=== PATIENT | female | born 1945 | race Caucasian/White ===

== ENCOUNTER 2020-04-30 20:01 | Inpatient (IN) | payer MEDICARE, SELFPAY ==
[2020-04-30] VITALS (11 sets, daily range): BP systolic 114–219; BP diastolic 10–115; PULSE 43–76; RESP 16–20; TEMP 36.6–36.7; O2SAT 96–98; BMI 22.4
--- NOTE | 2020-04-30 20:23 | ECG_ITS ---
Test Reason : BRADYCARDIA Blood Pressure : / mmHG Vent. Rate : 042 BPM Atrial Rate : 052 BPM P-R Int : 158 ms QRS Dur : 132 ms QT Int : 490 ms P-R-T Axes : 070 -27 -18 degrees QTc Int : 409 ms Sinus bradycardia with Blocked Premature atrial complexes Right bundle branch block Abnormal ECG When compared with ECG of 12-MAR-2020 10:06, T wave inversion less evident in Inferior leads Nonspecific T wave abnormality has replaced inverted T waves in Lateral leads Referred By: Generic ED Physician Electronically Signed By:DEANGELO ALLEN
--- NOTE | 2020-04-30 20:25 | XR_ITS ---
EXAMINATION: XR CHEST CLINICAL INFORMATION: Shortness of breath COMPARISON: 03/11/2020 TECHNIQUE: Frontal view of the chest was obtained. FINDINGS: Lungs are well-expanded and clear. No pleural effusion or pneumothorax. Sternal wires and mediastinal vascular clips. Tortuous aorta. Normal heart size. No acute osseous abnormality. IMPRESSION: No acute pulmonary disease. No pulmonary edema.
[2020-04-30 20:32] LABS: Glucose, Whole Blood 110 mg/dL (60-115)
--- NOTE | 2020-04-30 20:38 | PC.NURSE ---
IV established, labs obtained. MD at bedside. XRay at bedside. Pt aware of plan of care, continue to monitor.
[2020-04-30 20:45] LABS: MANUAL DIFF FLAG NO
[2020-04-30 20:49] LABS: Basophils Absolute Auto 0.1 X10*3/uL (0.0-0.2); Basophils Percent Auto 0.6 % (0-2); Eosinophils Absolute Auto 0.3 X10*3/uL (0.0-0.4); Eosinophils Percent Auto 3.8 % (0-4); Hematocrit 41.4 % (37-47); Hemoglobin 14.2 g/dl (12.0-16.0); Imm Gran Abs Auto 0.01 X10*3/uL (0.00-0.03); Imm Gran Pct Auto 0.1 % (0.0-0.4); Lymphocytes Absolute Auto 2.4 X10*3/uL (1.2-4.9); Lymphocytes Percent Auto 29.3 % (20-40); Mean Corpuscular HGB Conc 34.3 g/dl (31.0-35.0); Mean Corpuscular Hemoglobin 32.1 pg (27.0-33.0); Mean Corpuscular Volume 93.7 fL (80-98); Mean Platelet Volume 11.1 fL (9.4-12.3); Monocytes Absolute Auto 0.5 X10*3/uL (0.1-1.2); Monocytes Percent Auto 5.7 % (2-11); Neutrophils Absolute Auto 4.9 X10*3/uL (2.0-8.3); Neutrophils Percent Auto 60.5 % (45-73); Platelet Count 151 X10*3/uL (160-400); Red Blood Count 4.42 X10*6/uL (4.20-5.50); Red Cell Distribution Width 12.9 % (11.0-16.0); White Blood Count 8.1 X10*3/uL (4.8-10.8)
[2020-04-30] MEDS: hydrALAZINE HCl 20 MG/ML VIAL 10 MG IVPUSH ×2 (20:51→22:40)
[2020-04-30] MEDS: Furosemide 40 MG/4 ML VIAL IVPUSH (20:52)
--- NOTE | 2020-04-30 20:54 | PC.NURSE ---
Pt medicated per EMAR. Sinus kamari on tele at 42-48 bpm. Continue to monitor.
[2020-04-30 20:55] LABS: Prothrombin Time 11.4 SEC (10.8-13.0)
[2020-04-30 20:57] LABS: Partial Thromboplastin Time 25.8 SEC (24.1-38.0)
[2020-04-30 21:17] LABS: Troponin-I High Sensitivity 20.9 ng/L (<3.5-17.0)
--- NOTE | 2020-04-30 21:26 | PC.NURSE ---
PT INCONTINENT OF URINE AFTER LASIX. LINEN CHANGED. CMP RECOLLECTED
[2020-04-30 21:35] LABS: B Type Natriuretic Peptide 406 pg/mL (<100)
--- NOTE | 2020-04-30 21:54 | PC.NURSE ---
Pt having multiple episodes of urinary incontinence since given Lasix. Pt states that she noticed yesterday she was urinating frequently. Pt denies dysuria but reports a history of UTIs. Commode placed at bedside, plan to obtain UA. VSS. Continue to monitor.
[2020-04-30 21:56] LABS: Alanine Aminotransferase 10 U/L (0-31); Albumin Level 3.8 g/dL (3.5-5.0); Alkaline Phosphatase 82 U/L (39-117); Anion Gap 14 (12-20); Aspartate Amino Transferase 14 U/L (5-31); Bilirubin Total 0.6 mg/dL (0.0-1.0); Blood Urea Nitrogen 15 mg/dL (9-16); Calcium 8.6 mg/dL (8.4-10.2); Carbon Dioxide 24 mmol/L (22-29); Chloride 107 mmol/L (96-108); Creatinine Clr Calc Pharmacy 34.3; Estimated Glomerular Filt Rate 44; Glucose Fasting 96 mg/dL (60-99); Potassium 3.9 mmol/l (3.3-5.1); Sodium 141 mmol/L (135-145); Total Protein 6.1 g/dL (6.5-8.0)
--- NOTE | 2020-04-30 22:02 | PC.NURSE ---
UA obtained and sent. Pt assisted back into bed. Continue to monitor.
[2020-04-30 22:23] LABS: Glucose Urine UA NEG (NEG); Leukocyte Esterase Urine NEG (NEG); Nitrite Urine NEG (NEG); Specific Gravity - Urine 1.015 (1.005-1.025); Urine Blood TRACE (NEG); Urine Ketones NEG (NEG); Urine Protein NEG (NEG-TRACE)
[2020-04-30 22:24] LABS: Appearance Urine CLEAR; Color Urine COLORLESS
[2020-04-30 22:33] LABS: WBC Urine 0 /HPF (0-4)
[2020-04-30 22:34] LABS: Hyaline Casts Urine 0-2 /LPF; Squamous Epithelial Cell Urine TRACE /LPF
[2020-04-30 22:38] LABS: UACC CULT NO
[2020-04-30] MEDS: Nitroglycerin 2 % Oint 1 GM Packet 1 INCH TRANSDERMA (22:40)
--- NOTE | 2020-04-30 22:46 | PC.NURSE ---
Pt medicated per EMAR with Hydralazine and Nitro, resting comfortably in bed. VSS. Continue to monitor.
--- NOTE | 2020-04-30 23:01 | PC.NURSE ---
Pt calling this RN into the room, states she is having a frontal headache after administration of the Nitro paste. Pt aware of this side effect. Continue to monitor.
--- NOTE | 2020-04-30 23:11 | ED_ITS ---
HPI - SOB/Dyspnea General Chief Complaint: Dizziness Stated Complaint: SOB,WEAKNESS Time Seen by Provider: 04/30/20 20:31 Source: patient Mode of arrival: ambulatory Limitations: no limitations History of Present Illness HPI Narrative: patient with history of diastolic heart failure flash pulmonary edema uncontrolled hypertension admitted here 2 months ago for similar situation found out to be that she has bilateral renal artery stenosis and exited hypertension cause of pulmonary edema. Patient is supposed to follow-up with vascular but she never followed taking lisinopril ,metoprolol and Lasix today she came for feeling of same chest tightness and shortness of breath started just few hours prior to arrival on arrival patient's blood pressure was 209/98. Patient denies any cough or fever no radiation of chest pain just feel chest tight Related Data Allergies Allergy/AdvReac Type Severity Reaction Status Date / Time nifedipine [From PROCARDIA] Allergy Unknown HEADACHE Unverified 04/11/20 16:19 N.K.D.A. Allergy Unknown Uncoded 07/27/14 00:00 Review of Systems Review of Systems: REVIEW OF SYSTEMS: Pertinent positives and negatives are stated above in the history. GEN: no fevers, chills, fatigue HEENT: no nasal congestion, sore throat, ear pain NEURO: no headache, dizziness, focal weakness PULM: no cough, shortness of breath CV: no , palpitations, LE edema ABD: no abdominal pain, nausea, vomiting, diarrhea : no dysuria, urgency, frequency SKIN: no rash ROS otherwise negative x 10 PMFSH Past Medical History Medical History Diabetic neuropathy, type II diabetes mellitus Heart attack Hypertension Surgical History Aortocoronary bypass status Social History Social History Alcohol intake: never Smoking Status: Current every day smoker Smoked in Last 30 Days: Yes Use of substances other than those prescribed or required for medical reasons: No Advance Directives: No Advance Directives Information Provided: No Physical Exam Vital Signs and I&O and Narrative: Vital Signs and I&O: Vital Signs Temp 97.9 F 04/30/20 22:23 Pulse 62 04/30/20 23:00 Resp 20 04/30/20 22:39 BP 191/74 H 04/30/20 23:00 Pulse Ox 98 04/30/20 22:23 Intake & Output 04/30/20 04/30/20 05/01/20 06:59 18:59 06:59 Weight 57.606 kg Body Mass Index 22.4 VITAL SIGNS: Reviewed. GENERAL: Well developed, well nourished, in no acute distress. HEAD: Normocephalic/atraumatic, Posterior oropharynx was without edema, erythema or exudate. EYES: PERRLA, EOMI intact without pain, no nystagmus/pallor/icterus noted EARS: Ext canals without abnormality, TMs non-bulging and non-erythematous NOSE: Nares patent bilateral OROPHARYNX: no oral lesions noted, posterior pharynx clear and non-erythematous without noted tonsillar enlargement/erythema/exudates NECK: Supple, no adenopathy LUNGS: Normal breath sounds. No adventitious sounds or accessory muscle use. SpO2<> CARDIOVASCULAR: Regular rate and rhythm without noted murmurs, no JVD or lower extremity edema. ABDOMEN: Soft, non-tender, non-distended with bowel sounds. No rigidity. No guarding. No palpable masses or hernias noted MUSCULOSKELETAL: No tenderness, deformities, or effusions noted on gross inspection. EXTREMITIES: No cyanosis, clubbing SKIN: Inspection of the skin reveals no rashes, ulcerations, jaundice, pallor, or petechiae NEUROLOGIC: Alert and oriented x 3. Strength and sensation to light touch were grossly intact x 4. Course Course Course Narrative: patient with bilateral renal artery stenosis with accelerated hypertension which shortness of breath at this time patient does not have any heart failure /pulmonary edema. Blood pressure improved after IV hydralazine and nitro paste will admit patient for accelerated hypertension MDM - SOB/Dyspnea Lab Data Result diagrams: 04/30/20 20:28 04/30/20 21:16 Labs: Lab Results 04/30/20 04/30/20 04/30/20 Range/Units 20:25 20:28 20:28 WBC 8.1 (4.8-10.8) X10*3/uL RBC 4.42 (4.20-5.50) X10*6/uL Hgb 14.2 (12.0-16.0) g/dl Hct 41.4 (37-47) % MCV 93.7 (80-98) fL MCH 32.1 (27.0-33.0) pg MCHC 34.3 (31.0-35.0) g/dl RDW 12.9 (11.0-16.0) % Plt Count 151 L (160-400) X10*3/uL MPV 11.1 (9.4-12.3) fL Immature Gran % (Auto) 0.1 (0.0-0.4) % Neut % (Auto) 60.5 (45-73) % Lymph % (Auto) 29.3 (20-40) % [place] % (Auto) 5.7 (2-11) % Eos % (Auto) 3.8 (0-4) % Baso % (Auto) 0.6 (0-2) % Neut # (Auto) 4.9 (2.0-8.3) X10*3/uL Lymph # (Auto) 2.4 (1.2-4.9) X10*3/uL [place] # (Auto) 0.5 (0.1-1.2) X10*3/uL Eos # (Auto) 0.3 (0.0-0.4) X10*3/uL Baso # (Auto) 0.1 (0.0-0.2) X10*3/uL Abs Immat Gran (auto) 0.01 (0.00-0.03) X10*3/uL Absolute Nucleated RBC 0.000 (0.0-0.012) X10*3/uL Nucleated RBC % (auto) 0.0 (0.0-0.2) /100WBC PT 11.4 (10.8-13.0) SEC INR 1.0 (0.9-1.1) APTT 25.8 (24.1-38.0) SEC Sodium (135-145) mmol/L Potassium (3.3-5.1) mmol/l Chloride (96-108) mmol/L Carbon Dioxide (22-29) mmol/L Anion Gap (12-20) BUN (9-16) mg/dL Creatinine (0.5-1.4) mg/dL Estim Creat Clear Calc Estimated GFR POC Glucose 110 (60-115) mg/dL Fasting Glucose (60-99) mg/dL Calcium (8.4-10.2) mg/dL Total Bilirubin (0.0-1.0) mg/dL AST (5-31) U/L ALT (0-31) U/L Alkaline Phosphatase (39-117) U/L Troponin I High Sens (<3.5-17.0) ng/L B-Natriuretic Peptide (<100) pg/mL Total Protein (6.5-8.0) g/dL Albumin (3.5-5.0) g/dL Urine Color Urine Appearance Urine pH (5.0-8.0) Ur Specific Gem (1.005-1.025) Urine Protein (NEG-TRACE) MG/DL Urine Glucose (UA) (NEG) MG/DL Urine Ketones (NEG) MG/DL Urine Blood (NEG) Urine Nitrite (NEG) Ur Leukocyte Esterase (NEG) Urine RBC (0) /HPF Urine WBC (0-4) /HPF Ur Squamous Epith Cells /LPF Urine Bacteria /LPF Hyaline Casts /LPF 04/30/20 04/30/20 04/30/20 Range/Units 20:28 21:16 22:01 WBC (4.8-10.8) X10*3/uL RBC (4.20-5.50) X10*6/uL Hgb (12.0-16.0) g/dl Hct (37-47) % MCV (80-98) fL MCH (27.0-33.0) pg MCHC (31.0-35.0) g/dl RDW (11.0-16.0) % Plt Count (160-400) X10*3/uL MPV (9.4-12.3) fL Immature Gran % (Auto) (0.0-0.4) % Neut % (Auto) (45-73) % Lymph % (Auto) (20-40) % [place] % (Auto) (2-11) % Eos % (Auto) (0-4) % Baso % (Auto) (0-2) % Neut # (Auto) (2.0-8.3) X10*3/uL Lymph # (Auto) (1.2-4.9) X10*3/uL [place] # (Auto) (0.1-1.2) X10*3/uL Eos # (Auto) (0.0-0.4) X10*3/uL Baso # (Auto) (0.0-0.2) X10*3/uL Abs Immat Gran (auto) (0.00-0.03) X10*3/uL Absolute Nucleated RBC (0.0-0.012) X10*3/uL Nucleated RBC % (auto) (0.0-0.2) /100WBC PT (10.8-13.0) SEC INR (0.9-1.1) APTT (24.1-38.0) SEC Sodium 141 (135-145) mmol/L Potassium 3.9 (3.3-5.1) mmol/l Chloride 107 (96-108) mmol/L Carbon Dioxide 24 (22-29) mmol/L Anion Gap 14 (12-20) BUN 15 (9-16) mg/dL Creatinine 1.19 (0.5-1.4) mg/dL Estim Creat Clear Calc 34.3 Estimated GFR 44 POC Glucose (60-115) mg/dL Fasting Glucose 96 (60-99) mg/dL Calcium 8.6 (8.4-10.2) mg/dL Total Bilirubin 0.6 (0.0-1.0) mg/dL AST 14 (5-31) U/L ALT 10 (0-31) U/L Alkaline Phosphatase 82 (39-117) U/L Troponin I High Sens 20.9 H (<3.5-17.0) ng/L B-Natriuretic Peptide 406 H (<100) pg/mL Total Protein 6.1 L (6.5-8.0) g/dL Albumin 3.8 (3.5-5.0) g/dL Urine Color COLORLESS Urine Appearance CLEAR Urine pH 7.0 (5.0-8.0) Ur Specific Gem 1.015 (1.005-1.025) Urine Protein NEG (NEG-TRACE) MG/DL Urine Glucose (UA) NEG (NEG) MG/DL Urine Ketones NEG (NEG) MG/DL Urine Blood TRACE (NEG) Urine Nitrite NEG (NEG) Ur Leukocyte Esterase NEG (NEG) Urine RBC 1-4 (0) /HPF Urine WBC 0 (0-4) /HPF Ur Squamous Epith Cells TRACE /LPF Urine Bacteria NONE /LPF Hyaline Casts 0-2 /LPF ECG Data ECG interpretation date: 04/30/20 Prior ECG tracings: available for review Interpretation: sinus bradycardia with heart rate of 42 with premature atrial complexes right bundle-branch block normal axis and QT interval no acute change from previous EKGs Discharge Plan Discharge Clinical Impression: Accelerated hypertension Patient Disposition: Admitted As Inpatient
[2020-04-30] MEDS: Acetaminophen 325 MG TABLET 650 MG PO (23:19)
--- NOTE | 2020-04-30 23:19 | PC.NURSE ---
Pt medicated with Tylenol for PINEDA, 5/10 pain. Pt requesting food/drink, given crackers and a sandwich. Continue to monitor.
[2020-05-01] VITALS (19 sets, daily range): BP systolic 147–184; BP diastolic 50–90; PULSE 43–62; RESP 16–54; TEMP 36.5–37; O2SAT 94–99
--- NOTE | 2020-05-01 00:38 | P.HPIM_ITS ---
History of Present Illness Date of Service: 05/01/20 Chief Complaint: SOB 74 y/o female with significant extensive PMHX including renal artery stenosis who presented from home due to complains of shortness of breath x 1 day. Per history provided by the patient, for the past day has been having worsening difficulty breathing which is present at rest. Denies any chest pain, nausea, vomiting, diarrhea or fever. Patient had a similar presentation to our facility on February of present year (2 months ago), admitted due to Hypertensive emergency with acute CHF. Patient was treated accordingly and was discharged to follow up with General surgery Dr Sarmiento as outpatient for further managemnet of renal artery stenosis for what the patient did not. On Presentation currently to the ED tasha is found to have a BP of 209/98 mmHg and HR of 48. Patient was given multiple doses of hydralazine, lasix and placed on nitroglycerin paste. Now BP is 150/50 mmHg. Troponin was found to be 20.9 which is improved from last admission (28). Patient seen and evaluated at the bedside, laying down in bed in no acute distress. ROS as above otherwise negative. Physical exam unremarkable. PMHx: HTN, diabetes, CAD status post CABG, preserved EF Diastolic heart failure (EF of 60-65% on previous echo), Renal artery stenosis PSx: as above Toxix habits: No documented hx of smoking, IVDA or alcohol abuse Review of Systems Cardiovascular: Cardiovascular: Reports dyspnea Respiratory: Respiratory: Reports dyspnea [facility] Medical History Diabetic neuropathy, type II diabetes mellitus Heart attack Hypertension Functional capacity: independent ambulation Family history: reviewed and not pertinent Surgical History Aortocoronary bypass status Social History Alcohol intake: never Smoking Status: Current every day smoker Smoked in Last 30 Days: Yes Use of substances other than those prescribed or required for medical reasons: No Advance Directives: No Advance Directives Information Provided: No Meds Allergies Allergy/AdvReac Type Severity Reaction Status Date / Time nifedipine [From PROCARDIA] Allergy Unknown HEADACHE Unverified 04/11/20 16:19 N.K.D.A. Allergy Unknown Uncoded 07/27/14 00:00 Home Medications Medication Instructions Recorded Confirmed Type aspirin 81 mg PO DAILY 04/30/20 04/30/20 History lisinopril 1 tab PO DAILY 04/30/20 04/30/20 History metformin 1 tab PO BID 04/30/20 04/30/20 History metoprolol tartrate 1 tab PO BID 04/30/20 04/30/20 History Physical Exam Vital Signs and Narrative: Vital Signs: Last Vital Signs Temp 97.9 F 04/30/20 22:23 Pulse 76 04/30/20 23:49 Resp 16 04/30/20 23:49 BP 167/50 H 04/30/20 23:49 Pulse Ox 98 04/30/20 22:23 Body Mass Index 22.4 Results Labs Labs: Laboratory Tests 04/30/20 04/30/20 04/30/20 20:25 20:28 20:28 WBC 8.1 RBC 4.42 Hgb 14.2 Hct 41.4 MCV 93.7 MCH 32.1 MCHC 34.3 RDW 12.9 Plt Count 151 L MPV 11.1 Immature Gran % (Auto) 0.1 Neut % (Auto) 60.5 Lymph % (Auto) 29.3 [place] % (Auto) 5.7 Eos % (Auto) 3.8 Baso % (Auto) 0.6 Neut # (Auto) 4.9 Lymph # (Auto) 2.4 [place] # (Auto) 0.5 Eos # (Auto) 0.3 Baso # (Auto) 0.1 Abs Immat Gran (auto) 0.01 Absolute Nucleated RBC 0.000 Nucleated RBC % (auto) 0.0 PT 11.4 INR 1.0 APTT 25.8 Sodium Potassium Chloride Carbon Dioxide Anion Gap BUN Creatinine Estim Creat Clear Calc Estimated GFR POC Glucose 110 Fasting Glucose Calcium Total Bilirubin AST ALT Alkaline Phosphatase Troponin I High Sens B-Natriuretic Peptide Total Protein Albumin Urine Color Urine Appearance Urine pH Ur Specific [place] Urine Protein Urine Glucose (UA) Urine Ketones Urine Blood Urine Nitrite Ur Leukocyte Esterase Urine RBC Urine WBC Ur Squamous Epith Cells Urine Bacteria Hyaline Casts 04/30/20 04/30/20 04/30/20 20:28 21:16 22:01 WBC RBC Hgb Hct MCV MCH MCHC RDW Plt Count MPV Immature Gran % (Auto) Neut % (Auto) Lymph % (Auto) [place] % (Auto) Eos % (Auto) Baso % (Auto) Neut # (Auto) Lymph # (Auto) [place] # (Auto) Eos # (Auto) Baso # (Auto) Abs Immat Gran (auto) Absolute Nucleated RBC Nucleated RBC % (auto) PT INR APTT Sodium 141 Potassium 3.9 Chloride 107 Carbon Dioxide 24 Anion Gap 14 BUN 15 Creatinine 1.19 Estim Creat Clear Calc 34.3 Estimated GFR 44 POC Glucose Fasting Glucose 96 Calcium 8.6 Total Bilirubin 0.6 AST 14 ALT 10 Alkaline Phosphatase 82 Troponin I High Sens 20.9 H B-Natriuretic Peptide 406 H Total Protein 6.1 L Albumin 3.8 Urine Color COLORLESS Urine Appearance CLEAR Urine pH 7.0 Ur Specific [place] 1.015 Urine Protein NEG Urine Glucose (UA) NEG Urine Ketones NEG Urine Blood TRACE Urine Nitrite NEG Ur Leukocyte Esterase NEG Urine RBC 1-4 Urine WBC 0 Ur Squamous Epith Cells TRACE Urine Bacteria NONE Hyaline Casts 0-2 Assessment and Plan (1) Hypertensive emergency: Status: Acute BP now 150/50 mmHg after multiple IV hydralazine, one dose of lasix and nitro paste by ED Continue with BB and SANJU inh home dose meds electronic device monitor Follow up repeat troponin as ordered Sinus bradycardia on EKG continue with aspirin home dose Cardiology evaluation in the am (2) Renal artery stenosis: Status: Acute General surgery consult for follow up of renal artery stenosis as patient was not compliant with outpatient follow up (3) Diabetic neuropathy, type II diabetes mellitus: Status: Acute hold metformin Insulin regimen as ordered
[2020-05-01] MEDS: Aspirin 81 MG TAB.CHEW PO ×2 (01:55→20:29)
[2020-05-01] MEDS: Heparin Sodium,Porcine 5,000 UNIT/ML VIAL 5000 UNIT SUBCUT ×3 (01:55→16:59)
--- NOTE | 2020-05-01 03:44 | PC.NURSE ---
P: Patient noncompliant with high fall risk precautions. I: Assessed patient, educated patient. E: Pt high fall risk per protocol as pt reports having fell multiple times at home. This RN informed patient of her high risk status and the safety measures that are in place. Pt stated I will not ring the callbell or have an alarm on my bed. If I end up on the ground it will be my fault. This RN educated pt on importance of complying with the plan of care. Pt educated on the risks of not following hospital policy. Will continue to encourage compliance with safety measures, will frequently round on patient.
[2020-05-01 04:05] LABS: Troponin-I High Sensitivity 23.8 ng/L (<3.5-17.0)
[2020-05-01] MEDS: Flu Vacc QS2020-21(6mos up)/PF 0.5 ML SYRINGE IM (05:47)
[2020-05-01 06:37] LABS: MANUAL DIFF FLAG NO
[2020-05-01 06:45] LABS: Basophils Absolute Auto 0.1 X10*3/uL (0.0-0.2); Basophils Percent Auto 0.6 % (0-2); Eosinophils Absolute Auto 0.3 X10*3/uL (0.0-0.4); Eosinophils Percent Auto 3.3 % (0-4); Hematocrit 44.3 % (37-47); Hemoglobin 15.4 g/dl (12.0-16.0); Imm Gran Abs Auto 0.03 X10*3/uL (0.00-0.03); Imm Gran Pct Auto 0.3 % (0.0-0.4); Lymphocytes Absolute Auto 1.5 X10*3/uL (1.2-4.9); Lymphocytes Percent Auto 16.2 % (20-40); Mean Corpuscular HGB Conc 34.8 g/dl (31.0-35.0); Mean Corpuscular Hemoglobin 32.2 pg (27.0-33.0); Mean Corpuscular Volume 92.5 fL (80-98); Monocytes Absolute Auto 0.3 X10*3/uL (0.1-1.2); Monocytes Percent Auto 3.6 % (2-11); Neutrophils Absolute Auto 6.9 X10*3/uL (2.0-8.3); Platelet Count 165 X10*3/uL (160-400); Red Blood Count 4.79 X10*6/uL (4.20-5.50); White Blood Count 9.1 X10*3/uL (4.8-10.8)
[2020-05-01 07:19] LABS: Anion Gap 15 (12-20); Blood Urea Nitrogen 17 mg/dL (9-16); Calcium 8.8 mg/dL (8.4-10.2); Carbon Dioxide 23 mmol/L (22-29); Chloride 106 mmol/L (96-108); Creatinine Clr Calc Pharmacy 31.6; Estimated Glomerular Filt Rate 40; Glucose Random 80 mg/dL (60-115); Potassium 3.9 mmol/l (3.3-5.1); Sodium 140 mmol/L (135-145)
--- NOTE | 2020-05-01 08:18 | MHC.CM.PN ---
Patient lives in a 2 family house with her Daughter and she is functionally independent. Patient's goal is to return home and CM has initiated and will follow for dc planning.IMM addressed with Patient and the original has been given to her and a copy has been placed on the chart.
[2020-05-01 08:30] LABS: Glucose, Whole Blood 99 mg/dL (60-115)
[2020-05-01] MEDS: 0.9 % Sodium Chloride Flush 3 ML SYRINGE 2 ML IVFLUSH ×3 (08:32→15:11)
[2020-05-01] MEDS: lisinopriL 40 MG TABLET PO ×2 (08:32→08:40)
--- NOTE | 2020-05-01 11:04 | P.CONNP_ITS ---
History of Present Illness Reason for Consult Consult date: 05/01/20 Reason for consult: WENDY ? Chief Complaint Chief complaint: SOB,WEAKNESS History of Present Illness Narrative: 74 y/o readm to hosp with HTN emergency with severe HTN, CO and SOB. Previuos eval 02/2020 for simalr event revealeed on dopler evid of L WENDY and likely R WENDY as well. Seen by [facility] for possible intervention which was being pursude as outpt. She is feeling much better this am. No CP/SOB. She is unaware of what precip the event. She takes her meds; no recent incr in [facility] Past Medical History Medical History (Updated 05/01/20 @ 00:49 by Lakisha Preciado MD) Diabetic neuropathy, type II diabetes mellitus Heart attack Hypertension Functional capacity: independent ambulation Family History Family history: reviewed and not pertinent Surgical History Surgical History Aortocoronary bypass status Social History Social History Household Members: Children Housing: House Alcohol intake: never Smoking Status: Current every day smoker Tobacco Type: Cigarette Years Smoked: 60 Smoked in Last 30 Days: Yes Patient Interested in Nicotine Replacement: No Patient Given Instructions on How to Stop Smoking: Yes Date Education Initiated: 05/01/20 Second Hand Smoke Exposure: Yes Use of substances other than those prescribed or required for medical reasons: No Have you been hit, kicked, punched, or otherwise hurt by someone within the past year? If so, by whom?: No Do you feel safe in your current relationship?: No Current Relationship Is there a partner from a previous relationship who is making you feel unsafe now?: No Are you made to feel afraid or neglected: No Advance Directives: No Advance Directives Information Provided: No Do you have thoughts of harming others: None Do you have a plan to hurt others: No Plan Recently lost weight without trying: No service: No Current occupational status: retired Meds Allergies Allergy/AdvReac Type Severity Reaction Status Date / Time nifedipine [From PROCARDIA] Allergy Unknown HEADACHE Unverified 04/11/20 16:19 N.K.D.A. Allergy Unknown Uncoded 07/27/14 00:00 Home Medications Medication Instructions Recorded Confirmed Type aspirin 81 mg PO DAILY 04/30/20 04/30/20 History lisinopril 1 tab PO DAILY 04/30/20 04/30/20 History metformin 1 tab PO BID 04/30/20 04/30/20 History metoprolol tartrate 1 tab PO BID 04/30/20 04/30/20 History Physical Exam Vital Signs and I&O: Vital Signs Temp 98.1 F 05/01/20 10:00 Pulse 53 05/01/20 10:00 Resp 18 05/01/20 08:00 BP 160/78 H 05/01/20 10:00 Pulse Ox 96 05/01/20 10:00 Intake & Output 04/30/20 05/01/20 05/01/20 18:59 06:59 18:59 Output Total 800 / 800 Balance -800 / -800 Urine Output (Average ml/kg/hr) 1.16 Weight 57.606 kg Output: Output, Urine Amount 800 / 800 Other: Urine Bathroom Body Mass Index 22.4 VITAL SIGNS: Reviewed. GENERAL: Well developed, well nourished, in no acute distress. HEAD: Normocephalic/atraumatic, Posterior oropharynx was without edema, erythema or exudate. EYES: PERRLA, EOMI intact without pain, no nystagmus/pallor/icterus noted EARS: Ext canals without abnormality, TMs non-bulging and non-erythematous NOSE: Nares patent bilateral OROPHARYNX: no oral lesions noted, posterior pharynx clear and non-erythematous without noted tonsillar enlargement/erythema/exudates NECK: Supple, no adenopathy LUNGS: Normal breath sounds. No adventitious sounds or accessory muscle use. SpO2<> CARDIOVASCULAR: Regular rate and rhythm without noted murmurs, no JVD or lower extremity edema. ABDOMEN: Soft, non-tender, non-distended with bowel sounds. No rigidity. No guarding. No palpable masses or hernias noted MUSCULOSKELETAL: No tenderness, deformities, or effusions noted on gross inspection. EXTREMITIES: No cyanosis, clubbing SKIN: Inspection of the skin reveals no rashes, ulcerations, jaundice, pallor, or petechiae NEUROLOGIC: Alert and oriented x 3. Strength and sensation to light touch were grossly intact x 4. Results Lab Results Result Diagrams: 05/01/20 06:04 05/01/20 06:04 Lab results: Chemistry 04/30/20 05/01/20 21:16 06:04 Sodium 141 140 Potassium 3.9 3.9 Carbon Dioxide 24 23 BUN 15 17 H Creatinine 1.19 1.29 Calcium 8.6 8.8 Hematology 04/30/20 05/01/20 20:28 06:04 WBC 8.1 9.1 Hgb 14.2 15.4 Plt Count 151 L 165 Urinalysis 04/30/20 22:01 Urine Color COLORLESS Urine Appearance CLEAR Urine pH 7.0 Ur Specific Kevin 1.015 Urine Protein NEG Urine Glucose (UA) NEG Urine Ketones NEG Urine Blood TRACE Urine Nitrite NEG Ur Leukocyte Esterase NEG Urine RBC 1-4 Urine WBC 0 Ur Squamous Epith Cells TRACE Hyaline Casts 0-2 Assessment and Plan (1) Renal artery stenosis: Status: Acute (2) Diabetic neuropathy, type II diabetes mellitus: Status: Acute (3) Hypertensive emergency: Status: Acute (4) Accelerated hypertension: Status: Acute 1. HTN emergency: very suspicious for lea WENDY which can be assoc with HTN crisis 2. Severe HTN: better but remains subotimal contol and needs additional meds 3. WENDY based on doppler 4. 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
[2020-05-01] MEDS: Acetaminophen 325 MG TABLET 650 MG PO (11:44)
[2020-05-01] MEDS: Metoprolol Tartrate 50 MG TABLET PO (11:45)
[2020-05-01 12:19] LABS: Glucose, Whole Blood 116 mg/dL (60-115)
--- NOTE | 2020-05-01 12:21 | P.CDIC_ITS ---
CDI Concurrent Query Service Date: 05/01/20 Documentation Clarification: Please clarify if you are treating a proba ble/suspected/likely or confirmed: Chronic diastolic congestive heart failure Acute on chronic diastolic congestive heart failure Please specify if known or other Chronic Diastolic CHF Provider Response: CHF (chronic) PLEASE DO NOT DELETE/MODIFY EXISTING CONTENT Additional information is needed in order to code to the highest accuracy and appropriate Severity of Illness (SOI). Please clarify the information noted below in your progress notes and discharge summary. Risk Factors/Clinical Indicators/Treatments BP 209/98 hypertensive emergency, noncomplicant with medications. H&P: recent presentation of hypertensive emergency w acute CHF. BNP 406 H Smoker IV lasix, nitropaste now BP is 150/50 mmHg, Trop 20.9 PMH: preserved EF diastolic heart failure, renal artery stenosis. CDS: Alvina Cano CCS, CDIS Contact Number: [phone] Please Review the information above and exercise your independent professional judgment in responding to the query. If you concur, pleas document in the PROGRESS NOTES and DISCHARGE SUMMARY. If you do not agree with the query, please document in the query above. THIS QUERY IS PART OF THE PERMANENT MEDICAL RECORD
[2020-05-01] MEDS: hydrALAZINE HCl 25 MG TABLET PO (15:05)
--- NOTE | 2020-05-01 15:51 | PM.IMPN ---
Subjective Subjective Date of Service: 05/01/20 Interval History: seen and examined mild pineda but no cp or sob Review of Systems General - no fevers or chills Cardiovascular - no chest pain Respiratory - no shortness of breath or cough Abdominal- no abdominal pain, nausea, vomiting, diarrhea Neuro - mild PINEDA Physical Exam Vital Signs and I&O and Narrative: Vital Signs and I&O: Vital Signs Temp 97.7 F 05/01/20 15:18 Pulse 44 L 05/01/20 15:18 Resp 18 05/01/20 15:18 BP 180/90 H 05/01/20 15:05 Pulse Ox 96 05/01/20 15:18 Intake & Output 04/30/20 05/01/20 05/01/20 18:59 06:59 18:59 Output Total 800 / 800 Balance -800 / -800 Urine Output (Aver age ml/kg/hr) 1.16 1.16 Weight 57.606 kg Output: Output, Urine Am ount 800 / 800 Other: Number of Unmeas ured Voids 3 Urine Bathroom Body Mass Index 22.4 General - no acute distress, appears comfortable Cardiovascular - regular rate and rhythm, S1-S2 Lungs - normal respiratory effort, clear to auscultation bilaterally, no wheezing Abdomen - soft, nontender, no rebound regarding Extremities - no edema bilaterally Neuro - awake and alert, no focal deficits Objective Data Current Medications Generic Name Dose Route Start Last Admin Trade Name Freq PRN Reason Stop Dose Admin Acetaminophen 650 mg 05/01/20 11:26 05/01/20 11:44 Acetaminophen 325 Mg Tablet PO 650 mg Q6H PRN Administration Pain and Fever Aspirin 81 mg 05/01/20 00:30 05/01/20 01:55 Aspirin 81 Mg Tab.Chew PO 81 mg BEDTIME BROWN Administration Heparin Sodium (Porcine) 5,000 unit 05/01/20 02:00 05/01/20 08:37 Heparin Sodium,Porcine 5,000 Unit/Ml Vial SUBCUT 5,000 unit Q8H BROWN Administration Hydralazine HCl 25 mg 05/01/20 15:00 05/01/20 15:05 Hydralazine Hcl 25 Mg Tablet PO 25 mg TID BROWN Administration Protocol Insulin Human Lispro 3 unit 05/01/20 07:30 05/01/20 12:59 Insulin Lispro 100 Unit/Ml 3 Ml Vial SUBCUT Not Given QIDACHS [facility] Protocol Lisinopril 40 mg 05/01/20 09:00 05/01/20 08:40 Lisinopril 40 Mg Tablet PO 40 mg DAILY [facility] Administration Protocol Metoprolol Tartrate 50 mg 05/01/20 09:00 05/01/20 11:45 Metoprolol Tartrate 50 Mg Tablet PO 50 mg BID [facility] Administration Protocol Sodium Chloride 2 ml 05/01/20 08:00 05/01/20 15:11 0.9 % Sodium Chloride Flush 3 Ml Syringe IVFLUSH 2 ml QSHIFT [facility] Administration Labs CBC & Chem 7: 05/01/20 06:04 05/01/20 06:04 Labs: Laboratory Results - last 24 hr 04/30/20 04/30/20 04/30/20 20:25 20:28 20:28 MCV 93.7 MCH 32.1 MCHC 34.3 RDW 12.9 Plt Count 151 L MPV 11.1 Immature Gran % (Auto) 0.1 Neut % (Auto) 60.5 Lymph % (Auto) 29.3 Rains % (Auto) 5.7 Eos % (Auto) 3.8 Baso % (Auto) 0.6 Neut # (Auto) 4.9 Lymph # (Auto) 2.4 Rains # (Auto) 0.5 Eos # (Auto) 0.3 Baso # (Auto) 0.1 Abs Immat Gran (auto) 0.01 Absolute Nucleated RBC 0.000 Nucleated RBC % (auto) 0.0 PT 11.4 INR 1.0 APTT 25.8 Anion Gap Estim Creat Clear Calc Estimated GFR POC Glucose 110 Random Glucose Fasting Glucose Calcium Total Bilirubin AST ALT Alkaline Phosphatase Troponin I High Sens B-Natriuretic Peptide Total Protein Albumin Urine Color Urine Appearance Urine pH Ur Specific [place] Urine Protein Urine Glucose (UA) Urine Ketones Urine Blood Urine Nitrite Ur Leukocyte Esterase Urine RBC Urine WBC Ur Squamous Epith Cells Urine Bacteria Hyaline Casts 04/30/20 04/30/20 04/30/20 20:28 21:16 22:01 MCV MCH MCHC RDW Plt Count MPV Immature Gran % (Auto) Neut % (Auto) Lymph % (Auto) Rains % (Auto) Eos % (Auto) Baso % (Auto) Neut # (Auto) Lymph # (Auto) Rains # (Auto) Eos # (Auto) Baso # (Auto) Abs Immat Gran (auto) Absolute Nucleated RBC Nucleated RBC % (auto) PT INR APTT Anion Gap 14 Estim Creat Clear Calc 34.3 Estimated GFR 44 POC Glucose Random Glucose Fasting Glucose 96 Calcium 8.6 Total Bilirubin 0.6 AST 14 ALT 10 Alkaline Phosphatase 82 Troponin I High Sens 20.9 H B-Natriuretic Peptide 406 H Total Protein 6.1 L Albumin 3.8 Urine Color COLORLESS Urine Appearance CLEAR Urine pH 7.0 Ur Specific [place] 1.015 Urine Protein NEG Urine Glucose (UA) NEG Urine Ketones NEG Urine Blood TRACE Urine Nitrite NEG Ur Leukocyte Esterase NEG Urine RBC 1-4 Urine WBC 0 Ur Squamous Epith Cells TRACE Urine Bacteria NONE Hyaline Casts 0-2 05/01/20 05/01/20 05/01/20 03:09 06:04 06:04 MCV 92.5 MCH 32.2 MCHC 34.8 RDW 13.0 Plt Count 165 MPV 11.0 Immature Gran % (Auto) 0.3 Neut % (Auto) 76.0 H Lymph % (Auto) 16.2 L Rains % (Auto) 3.6 Eos % (Auto) 3.3 Baso % (Auto) 0.6 Neut # (Auto) 6.9 Lymph # (Auto) 1.5 Rains # (Auto) 0.3 Eos # (Auto) 0.3 Baso # (Auto) 0.1 Abs Immat Gran (auto) 0.03 Absolute Nucleated RBC 0.000 Nucleated RBC % (auto) 0.0 PT INR APTT Anion Gap 15 Estim Creat Clear Calc 31.6 Estimated GFR 40 POC Glucose Random Glucose 80 Fasting Glucose Calcium 8.8 Total Bilirubin AST ALT Alkaline Phosphatase Troponin I High Sens 23.8 H B-Natriuretic Peptide Total Protein Albumin Urine Color Urine Appearance Urine pH Ur Specific [place] Urine Protein Urine Glucose (UA) Urine Ketones Urine Blood Urine Nitrite Ur Leukocyte Esterase Urine RBC Urine WBC Ur Squamous Epith Cells Urine Bacteria Hyaline Casts 05/01/20 05/01/20 08:27 12:12 MCV MCH MCHC RDW Plt Count MPV Immature Gran % (Auto) Neut % (Auto) Lymph % (Auto) Rains % (Auto) Eos % (Auto) Baso % (Auto) Neut # (Auto) Lymph # (Auto) Rains # (Auto) Eos # (Auto) Baso # (Auto) Abs Immat Gran (auto) Absolute Nucleated RBC Nucleated RBC % (auto) PT INR APTT Anion Gap Estim Creat Clear Calc Estimated GFR POC Glucose 99 116 H Random Glucose Fasting Glucose Calcium Total Bilirubin AST ALT Alkaline Phosphatase Troponin I High Sens B-Natriuretic Peptide Total Protein Albumin Urine Color Urine Appearance Urine pH Ur Specific [place] Urine Protein Urine Glucose (UA) Urine Ketones Urine Blood Urine Nitrite Ur Leukocyte Esterase Urine RBC Urine WBC Ur Squamous Epith Cells Urine Bacteria Hyaline Casts Progress Note: A&P (1) Hypertensive emergency: Status: Acute (2) Renal artery stenosis: Status: Acute Assessment and Plan: This is a 74-year-old female with a known history of renal artery stenosis who presented to the hospital with sudden onset shortness of breath. She is admitted for uncontrolled hypertension. 1. Uncontrolled HTN / flash pulmonary edema better, but not ideal hold metoprolol -- bradycardic down to the 30s start hydralazine -- 50mg TID lisinopril 40mg 2. WENDY by ultrasound not interested in work up / surgical rx at this time hold off vacular surgery eval / cta since she is not interested has been explained risk / benefits -- will think it over 3. Bradycardia no symptoms hold BB and evlaute 4. CAD - s/p CABG 20+ years ago asa ? not on statin, unclear why 5. DM hold metformin inpatient use sliding scale Full Code DVT pptx, heparin
[2020-05-01 17:04] LABS: Glucose, Whole Blood 82 mg/dL (60-115)
[2020-05-01] MEDS: hydrALAZINE HCl 25 MG TABLET 50 MG PO (20:30)
[2020-05-01 21:13] LABS: Glucose, Whole Blood 85 mg/dL (60-115)
[2020-05-02] VITALS (11 sets, daily range): BP systolic 148–193; BP diastolic 70–86; PULSE 52–70; RESP 16–18; TEMP 36.6–36.9; O2SAT 96–99
[2020-05-02] MEDS: Acetaminophen 325 MG TABLET 650 MG PO (00:36)
[2020-05-02 07:59] LABS: Glucose, Whole Blood 173 mg/dL (60-115)
[2020-05-02] MEDS: lisinopriL 40 MG TABLET PO (08:27)
[2020-05-02] MEDS: hydrALAZINE HCl 25 MG TABLET 50 MG PO ×2 (08:27→15:58)
[2020-05-02] MEDS: 0.9 % Sodium Chloride Flush 3 ML SYRINGE 2 ML IVFLUSH (08:28)
[2020-05-02] MEDS: Heparin Sodium,Porcine 5,000 UNIT/ML VIAL 5000 UNIT SUBCUT (10:06)
[2020-05-02 11:37] LABS: Glucose, Whole Blood 176 mg/dL (60-115)
--- NOTE | 2020-05-02 11:43 | PC.NURSE ---
Pt refusing insuline. Educated pt why we use it for diabetics in the hospital. Pt still refusing, will continue to monitor POCs.
--- NOTE | 2020-05-02 11:56 | MHC.CM.PN ---
referral faxed to noman hartley addionally message left for na on vm
--- NOTE | 2020-05-02 12:16 | PM.PNNEP ---
Subjective Subjective Interval history: seen and examined feeling better no CP/SOB Physical Exam Vital Signs and I&O and Narrative: Vital Signs and I&O: Vital Signs Temp 97.8 F 05/02/20 11:37 Pulse 61 05/02/20 11:37 Resp 18 05/02/20 11:37 BP 156/82 H 05/02/20 11:37 Pulse Ox 99 05/02/20 11:37 Intake & Output 05/01/20 05/02/20 05/02/20 18:59 06:59 18:59 Intake Total 340 / 340 240 / 240 Balance 340 / 340 240 / 240 Intake: Intake, Oral Brenden unt 340 / 340 240 / 240 Other: Breakfast % Eate n 100% Number of Unmeas ured Voids 3 2 Body Mass Index 22.4 VITAL SIGNS: Reviewed. GENERAL: Well developed, well nourished, in no acute distress. HEAD: Normocephalic/atraumatic, Posterior oropharynx was without edema, erythema or exudate. EYES: PERRLA, EOMI intact without pain, no nystagmus/pallor/icterus noted EARS: Ext canals without abnormality, TMs non-bulging and non-erythematous NOSE: Nares patent bilateral OROPHARYNX: no oral lesions noted, posterior pharynx clear and non-erythematous without noted tonsillar enlargement/erythema/exudates NECK: Supple, no adenopathy LUNGS: Normal breath sounds. No adventitious sounds or accessory muscle use. SpO2<> CARDIOVASCULAR: Regular rate and rhythm without noted murmurs, no JVD or lower extremity edema. ABDOMEN: Soft, non-tender, non-distended with bowel sounds. No rigidity. No guarding. No palpable masses or hernias noted MUSCULOSKELETAL: No tenderness, deformities, or effusions noted on gross inspection. EXTREMITIES: No cyanosis, clubbing SKIN: Inspection of the skin reveals no rashes, ulcerations, jaundice, pallor, or petechiae NEUROLOGIC: Alert and oriented x 3. Strength and sensation to light touch were grossly intact x 4. Assessment & Plan Assessment and plan (1) Renal artery stenosis: Status: Acute (2) Diabetic neuropathy, type II diabetes mellitus: Status: Acute (3) Hypertensive emergency: Status: Acute (4) Accelerated hypertension: Status: Acute Assessment and Plan: 1. HTN emergency: very suspicious for lea WENDY which can be assoc with HTN crisis 2. Severe HTN: better but remains subotimal contol and needs additional meds 3. WENDY based on doppler 4. DM 5. 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
--- NOTE | 2020-05-02 14:26 | MHC.CM.PN ---
referral made to [facility] counselor noman coe pt does not want to have vna sercveis when dcd
--- NOTE | 2020-05-02 14:31 | PM.DS ---
DS: Providers Provider Date of admission: 05/01/20 00:36 Primary care physician: Unknown Physician Consults: 05/01/20 07:43 Consult to Nephrology Routine Consulting Provider: Rohan Farley Reason for consultation: renal artery stenosis, hypertensive urgency DS: Diagnosis Discharge Diagnosis (1) Hypertensive emergency: Status: Acute (2) Renal artery stenosis: Status: Acute (3) Flash pulmonary edema: Status: Acute DS: Summary Hospital Course Hospital Course: HPI from the admission H&P: 74 y/o female with significant extensive PMHX including renal artery stenosis who presented from home due to complains of shortness of breath x 1 day. Per history provided by the patient, for the past day has been having worsening difficulty breathing which is present at rest. Denies any chest pain, nausea, vomiting, diarrhea or fever. Patient had a similar presentation to our facility on February of present year (2 months ago), admitted due to Hypertensive emergency with acute CHF. Patient was treated accordingly and was discharged to follow up with General surgery Dr Sarmiento as outpatient for further managemnet of renal artery stenosis for what the patient did not. On Presentation currently to the ED tasha is found to have a BP of 209/98 mmHg and HR of 48. Patient was given multiple doses of hydralazine, lasix and placed on nitroglycerin paste. Now BP is 150/50 mmHg. Troponin was found to be 20.9 which is improved from last admission (28). Patient seen and evaluated at the bedside, laying down in bed in no acute distress. ROS as above otherwise negative. Physical exam unremarkable. patient presented in flash pulmonary edema secondary to hypertensive urgency. Patient was treated initially with do IV diuretics in the emergency room and subsequently started on oral antihypertensives. her metoprolol was discontinued due to bradycardia and instead hydralazine was initiated and up titrated to 50 mg 3 times a day per. she was continued on her lisinopril at 40 mg daily. Blood pressure remained suboptimal and she was subsequently commenced on Cardura 2 mg. although blood pressure improved, not ideal and will require further titration in the outpatient setting. In regards to her known renal artery stenosis, plan was for patient to undergo a CT angio and subsequent vascular surgery evaluation and possible intervention while in the hospital. However, the patient instead opted for outpatient follow-up and has been given a referral to vascular surgery, Dr. Sarmiento. she will also need follow-up with Nephrology if her blood pressure remains an issue. Time Spent with Patient Time attestation: Total time spent providing and/or coordinating discharge services: Physical Exam Vital Signs and I&O and Narrative: Vital Signs and I&O: Vital Signs Temp 97.8 F 05/02/20 11:37 Pulse 61 05/02/20 11:37 Resp 18 05/02/20 11:37 BP 156/82 H 05/02/20 11:37 Pulse Ox 99 05/02/20 12:00 General - no acute distress, appears comfortable Cardiovascular - regular rate and rhythm, S1-S2 Lungs - normal respiratory effort, clear to auscultation bilaterally, no wheezing Abdomen - soft, nontender, no rebound regarding Extremities - no edema bilaterally Neuro - awake and alert, no focal deficits DS: Data Data Completed and Pending Labs on day of discharge: Labs from last 24 hours 05/02/20 05/02/20 05/01/20 11:33 07:51 21:05 POC Glucose 176 H 173 H 85 05/01/20 16:57 POC Glucose 82 Discharge Plan Discharge Patient Disposition: Home Health Service Referrals: Arnold Sarmiento MD [Physician] - None (call office for appt) Physician,Unknown [Primary Care Provider] - Discharge Medications: New doxazosin 2 mg Tablet 2 mg PO BEDTIME Qty: 30 RF: 0 hydralazine 50 mg tablet 50 mg PO TID Qty: 90 RF: 0 Continued metformin 500 mg tablet 1 tab PO BID RF: 0 aspirin 81 mg Tablet 81 mg PO DAILY RF: 0 lisinopril 40 mg tablet 1 tab PO DAILY RF: 0 Discontinued metoprolol tartrate 50 mg tablet 1 tab PO BID RF: 0 Discharge Orders: Discharge Order (Routine); Ordered 05/02/20 Ordered By: Dean Gabriel Diet: advance to your usual diet Activity on Discharge: As tolerated Visit Report Forms: Patient Portal Discharge page Care Plan Goals: To have blood pressure control improve Health Concerns: Uncontrolled BP. This may be realated to narrow of the arteries around your kidneys. Please follow up with vascular doctor -- Dr. Sarmiento Plan of Treatment: Stop metoprolol. Start Cardura and Hydralazine
== END 2020-05-02 16:30 | disposition home health service (06) | DRG 305 ==
LOC: HO.ED 23:45 → HO.IMC 05-01 00:45
PROVIDERS: Admitting Provider Internal Medicine; Emergency Provider Internal Medicine; Visit Provider Family Medicine
DX: I16.1 Hypertensive emergency (principal); I50.32 Chronic diastolic (congestive) heart failure; E11.42 Type 2 diabetes mellitus with diabetic polyneuropathy; I25.10 Atherosclerotic heart disease of native coronary artery without angina pectoris; F17.210 Nicotine dependence, cigarettes, uncomplicated; Z95.1 Presence of aortocoronary bypass graft; I70.1 Atherosclerosis of renal artery; Z91.19 Patient's noncompliance with other medical treatment and regimen; I25.2 Old myocardial infarction; I13.10 Hypertensive heart and chronic kidney disease without heart failure, with stage 1 through stage 4 chronic kidney disease, or unspecified chronic kidney disease; E11.22 Type 2 diabetes mellitus with diabetic chronic kidney disease; N18.30 Chronic kidney disease, stage 3 unspecified; Z23 Encounter for immunization; Z71.6 Tobacco abuse counseling; Z79.82 Long term (current) use of aspirin; Z79.84 Long term (current) use of oral hypoglycemic drugs; Z79.899 Other long term (current) drug therapy
CPT/HCPCS: 36415; 71045; 80048; 80053; 81001; 82947; 83880; 84484; 85025; 85610; 85730; 90686; 93005; 93010; 96374; 96375; 96376; 99284; 99285; J1940

== ENCOUNTER 2020-05-31 14:33 | Inpatient (IN) | payer MEDICARE, SELFPAY ==
[2020-05-31] VITALS (11 sets, daily range): BP systolic 159–229; BP diastolic 68–132; PULSE 41–80; RESP 15–18; TEMP 36.8; O2SAT 96–98; BMI 22.4
--- NOTE | 2020-05-31 14:51 | ED_ITS ---
HPI - Syncope General Chief Complaint: Fall Stated Complaint: syncope Time Seen by Provider: 05/31/20 14:50 Source: patient and EMS Mode of arrival: EMS Limitations: no limitations History of Present Illness MD complaint: collapsed Onset (ago): week(s) (2) -: second(s) Description of event: other (states she can just be walking and all of a sudden her legs give out and she falls, she has not hit her head but she has noticed difficulty focusing her eyes prior to all of this) Prodromal symptoms: none Witnessed: No Context: during exertion and standing up Injuries sustained associated with event: none Current symptoms: none Treatments prior to arrival: none Related Data Home Medications Medication Instructions Recorded Confirmed aspirin 81 mg PO DAILY 04/30/20 04/30/20 metformin 1 tab PO BID 04/30/20 04/30/20 Previous Rx's Medication Instructions Recorded doxazosin 2 mg PO BEDTIME #30 tab 05/02/20 hydralazine 50 mg PO TID #90 tab 05/02/20 lisinopril 40 mg tablet 40 mg PO DAILY #90 tab 05/29/20 Allergies Allergy/AdvReac Type Severity Reaction Status Date / Time nifedipine [From PROCARDIA] Allergy Unknown HEADACHE Unverified 04/11/20 16:19 N.K.D.A. Allergy Unknown Uncoded 07/27/14 00:00 Review of Systems Review of Systems: Constitutional : No Weight loss, No Fever, No Chills, No Fatigue, No Malaise ENT/Mouth : No sore throat, No Rhinorrhea Eyes: No Eye Pain, No Swelling, No Redness, difficulty focusing Cardiovascular : No Chest Pain, No SOB, No Dyspnea on Exertion, No Orthopnea, No Edema, No Palpitations Respiratory : No Cough, No Sputum, No Wheezing Gastrointestinal : No Nausea, No Vomiting, No Diarrhea, No Constipation, No abdominal Pain, No Hematochezia, No Melena Genitourinary : No Dysuria, No Urinary Frequency, No Hematuria, Musculoskeletal : No joint pain, No Myalgias, No Joint Swelling Skin : No Skin Lesions, No rash Neuro : No Weakness, No Numbness, No Dizziness, No Headache Psych : No Anxiety/Panic, No Depression Heme/Lymph: No Bruising, No Bleeding,No Lymphadenopathy Endocrine : No Polyuria, No Polydipsia All other systems reviewed and are negative [facility] Past Medical History Attestation statement: The following information was validated with the patient. Medical History Diabetic neuropathy, type II diabetes mellitus Flash pulmonary edema Heart attack Hypertension Surgical History Aortocoronary bypass status Social History Social History Household Members: Children Housing: House Alcohol intake: never Smoking Status: Current every day smoker Tobacco Type: Cigarette Years Smoked: 60 Second Hand Smoke Exposure: Yes Advance Directives: No Advance Directives Information Provided: No service: No Current occupational status: retired Physical Exam Vital Signs: Vital Signs: Last Vital Signs Temp 98.2 F 05/31/20 14:43 Pulse 55 05/31/20 16:00 Resp 18 05/31/20 14:43 BP 229/102 H 05/31/20 16:00 Pulse Ox 96 05/31/20 14:43 Body Mass Index 22.4 Appearance: Alert. Oriented X3. No acute distress. Eyes: Pupils equal, round and reactive to light. has some nystagmus horizontal both left to right with finger tracing, no other abnormalities noted ENT: Pharynx normal. Neck: Normal inspection. Neck supple. CVS: Normal heart rate and rhythm. Pulses normal. Respiratory: No respiratory distress. Breath sounds normal. Abdomen: Soft and nontender. Skin: Skin warm and dry. Normal skin color. Normal skin turgor. Extremities: No lower extremity edema. No calf ttp Neuro: Oriented X 3. No motor deficit. No sensory deficit. slight RUE pronator drift Course Course Course Narrative: signed out to Dr. Weaver pending CTA, IV hydralazine ordered, chronically high BP and chronically high troponin (at her baseline) MDM - Syncope MDM Narrative Medical decision making narrative: 74 yo female with hx of HTN, renal artery stenosis here with 2 weeks of her legs giving out, she has mild RUE pronator drift, some nystagmus horizontal on EOM, will need labs, EKG, possible IV BP control, CT scan of head - dispo per results and findings. Lab Data Result diagrams: 05/31/20 15:14 05/31/20 15:14 Labs: Lab Results 05/31/20 05/31/2020 Range/Units 15:14 15:14 15:14 WBC 7.5 (4.8-10.8) X10*3/uL RBC 4.72 (4.20-5.50) X10*6/uL Hgb 15.1 (12.0-16.0) g/dl Hct 44.1 (37-47) % MCV 93.4 (80-98) fL MCH 32.0 (27.0-33.0) pg MCHC 34.2 (31.0-35.0) g/dl RDW 13.0 (11.0-16.0) % Plt Count 155 L (160-400) X10*3/uL MPV 10.9 (9.4-12.3) fL Immature Gran % (Auto) 0.4 (0.0-0.4) % Neut % (Auto) 64.3 (45-73) % Lymph % (Auto) 25.9 (20-40) % [place] % (Auto) 5.3 (2-11) % Eos % (Auto) 3.3 (0-4) % Baso % (Auto) 0.8 (0-2) % Lymph # (Auto) 2.0 (1.2-4.9) X10*3/uL [place] # (Auto) 0.4 (0.1-1.2) X10*3/uL Eos # (Auto) 0.3 (0.0-0.4) X10*3/uL Baso # (Auto) 0.1 (0.0-0.2) X10*3/uL Abs Immat Gran (auto) 0.03 (0.00-0.03) X10*3/uL Absolute Neuts (auto) 4.9 (2.0-8.3) X10*3/uL Absolute Nucleated RBC 0.000 (0.0-0.012) X10*3/uL Nucleated RBC % (auto) 0.0 (0.0-0.2) /100WBC PT Cancelled INR Cancelled APTT Cancelled Sodium Cancelled Potassium Cancelled Chloride Cancelled Carbon Dioxide Cancelled Anion Gap Cancelled BUN Cancelled Creatinine Cancelled Estim Creat Clear Calc Cancelled Estimated GFR Cancelled Random Glucose Cancelled Calcium Cancelled Magnesium Cancelled Total Bilirubin Cancelled Direct Bilirubin Cancelled AST Cancelled ALT Cancelled Alkaline Phosphatase Cancelled Troponin I High Sens (<3.5-17.0) ng/L Total Protein Cancelled Albumin Cancelled 05/31/20 Range/Units 15:14 WBC (4.8-10.8) X10*3/uL RBC (4.20-5.50) X10*6/uL Hgb (12.0-16.0) g/dl Hct (37-47) % MCV (80-98) fL MCH (27.0-33.0) pg MCHC (31.0-35.0) g/dl RDW (11.0-16.0) % Plt Count (160-400) X10*3/uL MPV (9.4-12.3) fL Immature Gran % (Auto) (0.0-0.4) % Neut % (Auto) (45-73) % Lymph % (Auto) (20-40) % [place] % (Auto) (2-11) % Eos % (Auto) (0-4) % Baso % (Auto) (0-2) % Lymph # (Auto) (1.2-4.9) X10*3/uL [place] # (Auto) (0.1-1.2) X10*3/uL Eos # (Auto) (0.0-0.4) X10*3/uL Baso # (Auto) (0.0-0.2) X10*3/uL Abs Immat Gran (auto) (0.00-0.03) X10*3/uL Absolute Neuts (auto) (2.0-8.3) X10*3/uL Absolute Nucleated RBC (0.0-0.012) X10*3/uL Nucleated RBC % (auto) (0.0-0.2) /100WBC PT INR APTT Sodium Potassium Chloride Carbon Dioxide Anion Gap BUN Creatinine Estim Creat Clear Calc Estimated GFR Random Glucose Calcium Magnesium Total Bilirubin Direct Bilirubin AST ALT Alkaline Phosphatase Troponin I High Sens 25.1 H (<3.5-17.0) ng/L Total Protein Albumin ECG Data Attestation: I personally reviewed and interpreted this ECG as follows: ECG interpretation date: 05/31/20 ECG interpretation time: 15:37 Interpretation: Rate: 58 Rhythm: sinus bradycardia with frequent PACs Newborn: left Normal P waves. Normal KARIN. Normal QRS complex. ST T wave : nonspecific qTC: noral prior studies: no acute ischemia The study has been interpreted contemporaneously by me. . Discharge Plan Discharge Clinical Impression: HTN (hypertension), Fall Prescriptions: No Action lisinopril 40 mg tablet 40 mg PO DAILY Qty: 90 RF: 0 metformin 500 mg tablet 1 tab PO BID RF: 0 aspirin 81 mg Tablet 81 mg PO DAILY RF: 0 doxazosin 2 mg Tablet 2 mg PO BEDTIME Qty: 30 RF: 0 hydralazine 50 mg tablet 50 mg PO TID Qty: 90 RF: 0
--- NOTE | 2020-05-31 14:57 | CT_ITS ---
EXAMINATION: CT HEAD WITHOUT CONTRAST CLINICAL INFORMATION: Fall. COMPARISON: None TECHNIQUE: Contiguous axial imaging was performed from the skull base to vertex without intravenous administration of contrast. This CT examination was performed using dose optimization techniques as appropriate, variously including the following: *Automated exposure control *Adjustment of mA and/or kV according to patient size (this includes techniques or standardized protocols for targeted exams where dose is matched to indication/reason for exam; i.e. extremities or head) *Use of iterative reconstruction technique DLP: 577 mGy-cm FINDINGS: There is no evidence of acute intracranial hemorrhage or territorial infarction. No abnormal mass effect or midline shift is seen. Rios to white matter differentiation is well preserved. No extra-axial fluid collections are identified. The lateral ventricles are symmetrical in size and configuration are normal size. There is diffuse periventricular hypodensity suggestive of chronic small vessel ischemic changes. The osseous structures and soft tissues are normal. The mastoid air cells and visualized portions of the paranasal sinuses are well aerated. CT/CT head/brain wo con IMPRESSION: No acute intracranial process seen. Chronic small vessel ischemic changes.
--- NOTE | 2020-05-31 14:58 | ECG_ITS ---
Test Reason : SYNCOPE Blood Pressure : / mmHG Vent. Rate : 058 BPM Atrial Rate : 058 BPM P-R Int : 148 ms QRS Dur : 120 ms QT Int : 450 ms P-R-T Axes : 073 -30 034 degrees QTc Int : 441 ms Sinus bradycardia with Premature supraventricular complexes Possible Left atrial enlargement Left axis deviation Right bundle branch block Abnormal ECG When compared with ECG of 30-APR-2020 20:25, Heart rate has increased Referred By: Lydia Jeter Electronically Signed By:HOSSEIN BENNETT MD
[2020-05-31 15:20] LABS: MANUAL DIFF FLAG NO
[2020-05-31 15:25] LABS: Basophils Absolute Auto 0.1 X10*3/uL (0.0-0.2); Basophils Percent Auto 0.8 % (0-2); Eosinophils Absolute Auto 0.3 X10*3/uL (0.0-0.4); Eosinophils Percent Auto 3.3 % (0-4); Hematocrit 44.1 % (37-47); Hemoglobin 15.1 g/dl (12.0-16.0); Imm Gran Abs Auto 0.03 X10*3/uL (0.00-0.03); Imm Gran Pct Auto 0.4 % (0.0-0.4); Lymphocytes Percent Auto 25.9 % (20-40); Mean Corpuscular HGB Conc 34.2 g/dl (31.0-35.0); Mean Corpuscular Volume 93.4 fL (80-98); Mean Platelet Volume 10.9 fL (9.4-12.3); Monocytes Absolute Auto 0.4 X10*3/uL (0.1-1.2); Monocytes Percent Auto 5.3 % (2-11); Neutrophils Absolute Auto 4.9 X10*3/uL (2.0-8.3); Neutrophils Percent Auto 64.3 % (45-73); Platelet Count 155 X10*3/uL (160-400); Red Blood Count 4.72 X10*6/uL (4.20-5.50); White Blood Count 7.5 X10*3/uL (4.8-10.8)
[2020-05-31 15:56] LABS: Troponin-I High Sensitivity 25.1 ng/L (<3.5-17.0)
[2020-05-31] MEDS: hydrALAZINE HCl 20 MG/ML VIAL 10 MG IVPUSH ×2 (16:00→17:02)
--- NOTE | 2020-05-31 16:06 | CT_ITS ---
EXAMINATION: CT ANGIOGRAM OF THE HEAD CT ANGIOGRAM OF THE NECK CLINICAL INFORMATION: Repeat episodes of syncope and visual changes. COMPARISON: CT scan of the head earlier 05/31/2020. CT scan of the head 10/05/2019. CT scan of the cervical spine 08/27/2019. TECHNIQUE: Test bolus series followed by intravenous administration 17 mL of Omnipaque 350. Helical imaging was performed in the axial plane from the mediastinum to the skull vertex. A post contrast CT scan of the head was obtained. The degree of stenosis is based off NASCET criteria. The data was processed at the architectural technologist workstation for generation of MIP images. Three-dimensional volume rendered reformatted images were also generated at an offline 3-D workstation. This CT examination was performed using dose optimization techniques as appropriate, variously including the following: *Automated exposure control *Adjustment of mA and/or kV according to patient size (this includes techniques or standardized protocols for targeted exams where dose is matched to indication/reason for exam; i.e. extremities or head) *Use of iterative reconstruction technique DLP: 1531 mGy-cm. FINDINGS: CT Head: There is no evidence of acute intracranial hemorrhage or territorial infarction. No abnormal mass-effect or midline shift is seen. Rios to white matter differentiation is well preserved. No extra-axial fluid collections are identified. There is no abnormal enhancement. The ventricles and sulci are commensurately prominent consistent with mild diffuse volume loss. There are scattered areas of low-attenuation the periventricular and subcortical white matter, consistent with chronic microvascular ischemic changes. 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 There are no acute osseous findings. The soft tissues are unremarkable. There are atheromatous calcifications of the bilateral vertebral and cavernous internal carotid arteries. There is a fluid level with aerosolized secretions in the left sphenoid sinus. CTA Neck: There is a classic configuration of the arch of the aorta. There are atheromatous calcifications of the aortic arch and at the origins of the great vessels of the neck. The common carotid arteries are patent bilaterally. There are mild atheromatous calcifications at the bilateral carotid bifurcations, without significant stenosis. The cervical internal carotid arteries are patent bilaterally. The origins of the vertebral arteries are well-demonstrated. The left vertebral artery is dominant. Both vertebral arteries are patent throughout their cervical course extending intradurally. Nonvascular: The right lobe of the thyroid gland is markedly enlarged, and there is a mass at the mid and upper pole on the right which measures 2.7 x 2.3 cm, similar compared to prior imaging. There are sequelae of median sternotomy and CABG. The upper lung acevedo are well-aerated. There is no cervical lymphadenopathy. There are moderate spondylitic and facet arthropathic changes in the cervical spine. CTA Head: Please note that the initial CTA acquisition is markedly degraded by patient motion artifact in the region of the [place] of [place]. The vessels were evaluated on series 14. There are atheromatous calcifications of the bilateral cavernous internal carotid arteries. The supraclinoid internal carotid arteries and the internal carotid bifurcations appear normal. The middle and anterior cerebral arteries bilaterally demonstrate normal caliber with no evidence of focal stenosis, aneurysm or vascular malformation. There is normal arborization of the middle cerebral artery branches. The anterior communicating artery is normal. In the posterior circulation, the left vertebral artery is dominant. The right vertebral artery ends primarily in the PICA. The basilar artery appears normal. The posterior cerebral arteries have normal caliber. The venous sinuses opacify normally. CT/CT angio head neck IMPRESSION: CT head and neck: 1. There are no acute bleeds or territorial infarcts. No masses are demonstrated. There is no abnormal enhancement. 2. There are chronic microvascular ischemic changes and there is diffuse volume loss. 3. There is a large nodule in the right lobe of the thyroid gland, which could be further evaluated with thyroid ultrasound. CTA head and neck: 1. There are no flow-limiting stenoses in the head and neck circulation. 2. There are no aneurysms or vascular malformations. 3. There are atheromatous calcifications in the neck and intracranially. 4. As described above, initial CTA acquisition is markedly degraded by patient motion artifact in the region of the [place] of [place]. The vessels were evaluated on series 14.
[2020-05-31 17:45] LABS: Glucose Urine UA NEG (NEG); Leukocyte Esterase Urine NEG (NEG); Nitrite Urine NEG (NEG); Specific Gravity - Urine 1.025 (1.005-1.025); Urine Blood NEG (NEG); Urine Ketones NEG (NEG); Urine Protein 1+ MG/DL (NEG-TRACE)
[2020-05-31 17:55] LABS: INTERNATIONAL NORM RATIO 0.9 (0.9-1.1)
[2020-05-31 17:58] LABS: Partial Thromboplastin Time 35.2 SEC (24.1-38.0)
[2020-05-31 18:02] LABS: Appearance Urine CLEAR; Color Urine YELLOW
[2020-05-31 18:04] LABS: Bacteria Urine TRACE /LPF; RBC Urine 0 /HPF (0); Squamous Epithelial Cell Urine 1+ /LPF
[2020-05-31 18:25] LABS: Alanine Aminotransferase 12 U/L (0-31); Albumin Level 3.7 g/dL (3.5-5.0); Alkaline Phosphatase 86 U/L (39-117); Anion Gap 14 (12-20); Aspartate Amino Transferase 16 U/L (5-31); Bilirubin Direct 0.3 mg/dL (0.0-0.5); Bilirubin Total 0.5 mg/dL (0.0-1.0); Blood Urea Nitrogen 13 mg/dL (9-16); Calcium 8.1 mg/dL (8.4-10.2); Carbon Dioxide 23 mmol/L (22-29); Chloride 108 mmol/L (96-108); Creatinine Clr Calc Pharmacy 37.1; Estimated Glomerular Filt Rate 49; Glucose Random 77 mg/dL (60-115); Magnesium 1.7 mg/dL (1.6-2.6); Potassium 4.1 mmol/l (3.3-5.1); Sodium 141 mmol/L (135-145); Total Protein 6.1 g/dL (6.5-8.0)
[2020-05-31] MEDS: iohexoL 350 MG/ML 100 ML INFUS..BTL IV (19:48)
[2020-05-31] MEDS: Labetalol HCL 100 MG/20 ML VIAL 20 MG IVPUSH (20:11)
--- NOTE | 2020-05-31 20:46 | PC.NURSE ---
aware of varying blood pressures. Has been medicated as ordered with Labetalol 20mg, with improvement noted. Pt aware of plan to admit for unstable BP. Pt reports slight headache, but I feel fine . aware. Will continue to monitor.
--- NOTE | 2020-05-31 23:20 | P.HPHOSP_ITS ---
History of Present Illness Date of Service: 05/31/20 Chief Complaint: Fall 74 y/o female with significant PMHX of Renal artery stenosis who presented to the ED s/p fall. Per history provided by the patient for the past 2 weeks has been having on and off LE weakness where she feels like her legs gives out on her . Today while walking outside out of the suddent lost the strenght in both of her extremities and fell on the floor. Denies hitting her her or LOC. On presentation to the ED was found to have elevated BP 222/105 with HR of 48. Patient was given multiple IV medications for BP control. BP now 175/80 mmHg. Lisinopril once dose to be given now. troponin of 25.1 x 1. Patient denies any chest pain, SOB, nausea, vomiting, diarrhea, fever or any sick contacts. CT head showed no evidence of any acute intracranial pathology. CTA head/neck positive for incidental thyroid nodule in the right. Patient was last time admitted with hypertensive crisis 1 month ago and was to follow up with vascular surgery as outpatient. Decision for admission given. Patient seen and examined at the bedside, laying down in bed in no acute distress. ROS as above otherwise negative. Physical exam unremarkable. No evidence of any LE weakness on exam or sensory deficits. PMHx: HTN, diabetes, CAD status post CABG, preserved EF Diastolic heart failure (EF of 60-65% on previous echo), Bilateral Renal artery stenosis PSx: as above Toxix habits: No documented hx of smoking, IVDA or alcohol abuse Review of Systems Musculoskeletal: Musculoskeletal: Reports abnormal gait Neurologic: Reports abnormal gait [facility] Medical History Diabetic neuropathy, type II diabetes mellitus Flash pulmonary edema Heart attack Hypertension Functional capacity: independent ambulation Surgical History Aortocoronary bypass status Social History Household Members: Children Housing: House Alcohol intake: never Smoking Status: Current every day smoker Tobacco Type: Cigarette Years Smoked: 60 Second Hand Smoke Exposure: Yes Advance Directives: No Advance Directives Information Provided: No service: No Current occupational status: retired Meds Allergies Allergy/AdvReac Type Severity Reaction Status Date / Time No Known Allergies Allergy Verified 05/31/20 21:43 Home Medications Medication Instructions Recorded Confirmed Type aspirin 81 mg PO DAILY 04/30/20 05/31/20 History metformin 500 mg PO BID 04/30/20 05/31/20 History metoprolol tartrate 50 mg PO BID 05/31/20 05/31/20 History Physical Exam Vital Signs and Narrative: Vital Signs: Last Vital Signs Temp 98.2 F 05/31/20 14:43 Pulse 63 05/31/20 21:40 Resp 15 05/31/20 21:40 BP 183/75 H 05/31/20 21:40 Pulse Ox 97 05/31/20 20:19 Body Mass Index 22.4 Const: General: cooperative, comfortable and no acute distress Orientation/consciousness: patient oriented x3 HENMT: Head: Yes normal to inspection Eyes: General: appearance normal, both eyes and all related structures Neck: Yes normal visual inspection Chest: Chest palpation & inspection: normal inspection of the chest Resp: Effort & Inspection: normal respiratory effort Cardio: Jugular venous distension: no JVD Rate: regular rate Rhythm: regular rhythm Heart sounds: S1 normal heart sound present and S2 normal heart sound present GI: Inspection: Yes normal to inspection Skin: General skin exam: no rashes or lesions noted Neuro: General: patient oriented x3 Extrem: General: Yes normal to inspection Psych: Appearance: grossly normal Results Labs CBC and Chem 7: 05/31/20 15:14 05/31/20 17:50 Labs: Laboratory Results - last 24 hr 05/31/20 05/31/20 05/31/20 15:14 15:14 15:14 MCV 93.4 MCH 32.0 MCHC 34.2 RDW 13.0 Plt Count 155 L MPV 10.9 Immature Gran % (Auto) 0.4 Neut % (Auto) 64.3 Lymph % (Auto) 25.9 Schley % (Auto) 5.3 Eos % (Auto) 3.3 Baso % (Auto) 0.8 Lymph # (Auto) 2.0 Schley # (Auto) 0.4 Eos # (Auto) 0.3 Baso # (Auto) 0.1 Abs Immat Gran (auto) 0.03 Absolute Neuts (auto) 4.9 Absolute Nucleated RBC 0.000 Nucleated RBC % (auto) 0.0 PT Cancelled INR Cancelled APTT Cancelled Anion Gap Cancelled Estim Creat Clear Calc Cancelled Estimated GFR Cancelled Random Glucose Cancelled Calcium Cancelled Magnesium Cancelled Total Bilirubin Cancelled Direct Bilirubin Cancelled AST Cancelled ALT Cancelled Alkaline Phosphatase Cancelled Troponin I High Sens Total Protein Cancelled Albumin Cancelled Urine Color Urine Appearance Urine pH Ur Specific [place] Urine Protein Urine Glucose (UA) Urine Ketones Urine Blood Urine Nitrite Ur Leukocyte Esterase Urine RBC Urine WBC Ur Squamous Epith Cells Urine Bacteria 05/31/20 05/31/20 05/31/20 15:14 17:15 17:37 MCV MCH MCHC RDW Plt Count MPV Immature Gran % (Auto) Neut % (Auto) Lymph % (Auto) Schley % (Auto) Eos % (Auto) Baso % (Auto) Lymph # (Auto) Schley # (Auto) Eos # (Auto) Baso # (Auto) Abs Immat Gran (auto) Absolute Neuts (auto) Absolute Nucleated RBC Nucleated RBC % (auto) PT 11.0 INR 0.9 APTT 35.2 D Anion Gap Estim Creat Clear Calc Estimated GFR Random Glucose Calcium Magnesium Total Bilirubin Direct Bilirubin AST ALT Alkaline Phosphatase Troponin I High Sens 25.1 H Total Protein Albumin Urine Color YELLOW Urine Appearance CLEAR Urine pH 6.0 Ur Specific [place] 1.025 Urine Protein 1+ H Urine Glucose (UA) NEG Urine Ketones NEG Urine Blood NEG Urine Nitrite NEG Ur Leukocyte Esterase NEG Urine RBC 0 Urine WBC 1-4 Ur Squamous Epith Cells 1+ Urine Bacteria TRACE 05/31/20 17:50 MCV MCH MCHC RDW Plt Count MPV Immature Gran % (Auto) Neut % (Auto) Lymph % (Auto) [place] % (Auto) Eos % (Auto) Baso % (Auto) Lymph # (Auto) Schley # (Auto) Eos # (Auto) Baso # (Auto) Abs Immat Gran (auto) Absolute Neuts (auto) Absolute Nucleated RBC Nucleated RBC % (auto) PT INR APTT Anion Gap 14 Estim Creat Clear Calc 37.1 Estimated GFR 49 Random Glucose 77 Calcium 8.1 L D Magnesium 1.7 Total Bilirubin 0.5 Direct Bilirubin 0.3 AST 16 ALT 12 Alkaline Phosphatase 86 Troponin I High Sens Total Protein 6.1 L Albumin 3.7 Urine Color Urine Appearance Urine pH Ur Specific [place] Urine Protein Urine Glucose (UA) Urine Ketones Urine Blood Urine Nitrite Ur Leukocyte Esterase Urine RBC Urine WBC Ur Squamous Epith Cells Urine Bacteria Imaging Radiologist's Impressions: Impressions Head CT 11/06/20 14:57 IMPRESSION: No acute intracranial process seen. Chronic small vessel ischemic changes. Head/Neck CTA 05/31/20 16:06 IMPRESSION: CT head and neck: 1. There are no acute bleeds or territorial infarcts. No masses are demonstrated. There is no abnormal enhancement. 2. There are chronic microvascular ischemic changes and there is diffuse volume loss. 3. There is a large nodule in the right lobe of the thyroid gland, which could be further evaluated with thyroid ultrasound. CTA head and neck: 1. There are no flow-limiting stenoses in the head and neck circulation. 2. There are no aneurysms or vascular malformations. 3. There are atheromatous calcifications in the neck and intracranially. 4. As described above, initial CTA acquisition is markedly degraded by patient motion artifact in the region of the [place] of [place]. The vessels were evaluated on series 14. Assessment and Plan (1) Renal artery stenosis: Status: Acute S/p multiple iV BP meds for BP control One dose of lisinopril to be given now. BP now 170/80 mmhg Continue with home BP meds Cardiac monitoring continue with aspirin home dose troponin of 25 initially, no symptoms of CP. Likely demand ischemia Follow up second troponin level Cardiology consult in the am Nephrology consult in the am Vascular surgery consult in the am for evaluation of WENDY (2) Hypertensive crisis: Status: Acute as above (3) Diabetic neuropathy, type II diabetes mellitus: Status: Acute hold PO meds Insulin regimen as ordered POCT glucose AC HS (4) Fall: Qualifiers: Encounter type: initial encounter Qualified Code(s): W19.XXXA - Unspecified fall, initial encounter Status: Acute no evidence of bilateral LE weakness. reason unknown as there is no evidence of any neurologic deficits CT head negative for any intracranial pathology Monitor for now
[2020-05-31] MEDS: lisinopriL 40 MG TABLET PO (23:50)
[2020-06-01] VITALS (19 sets, daily range): BP systolic 165–211; BP diastolic 65–92; PULSE 47–96; RESP 16–18; TEMP 36.3–37; O2SAT 94–98
[2020-06-01 00:39] LABS: Troponin-I High Sensitivity 25.4 ng/L (<3.5-17.0)
[2020-06-01 01:07] LABS: SARS COV2 PCR INHOUSE NEGATIVE (Negative)
--- NOTE | 2020-06-01 02:29 | PC.NURSE ---
RN to RN report given to INA Rose on [facility]. Preparing for admission to bed 444-2.
[2020-06-01] MEDS: Labetalol HCL 100 MG/20 ML VIAL 10 MG IVPUSH (03:34)
[2020-06-01] MEDS: 0.9 % Sodium Chloride Flush 3 ML SYRINGE IVFLUSH ×4 (03:35→23:42)
[2020-06-01] MEDS: hydrALAZINE HCl 20 MG/ML VIAL 10 MG IVPUSH (05:16)
[2020-06-01] MEDS: Nitroglycerin 2 % Oint 1 GM Packet 1 INCH TRANSDERMA (05:19)
[2020-06-01] MEDS: Heparin Sodium,Porcine 5,000 UNIT/ML VIAL 5000 UNIT SUBCUT ×3 (06:02→21:01)
--- NOTE | 2020-06-01 06:07 | PC.NURSE ---
[place] [facility] [place] monitor high BP's at approx. 0300 0315 : BP 202/92 HR 96 MD notified and ordered IV labetalol 10mg. 0445: BP rechecked 206/82 HR 67 MD notified and ordered 1 inch Nitropaste, IV Hydralazine 10mg. 0550: BP rechecked continues to be elevated at 200/80 HR 70. MD notified. Patient asymptomatic , no complaints of headache. Face is noted to be red and flushed patient states it's always like that . 0618: MD ordered 60 mg P.O. Nifedipine ER and to give daily scheduled 0900 Lisinopril 40mg early. Will administer and continue to monitor.
--- NOTE | 2020-06-01 06:16 | PM.EVENT ---
Event Note Date of Service: 06/01/20 Event Note: Accelerated hypertension: BP has been running high ~200/90's with no improvement after home PO med lisinopril was given and after multiple IV BP meds since the patient was admitted. ICU called for possible need of nitroglycerin drip but deemed not be a candidate at this time given asymptomatic hypertension. Nephrology called instead Dr Farley who recommends: 1- Start with Procardia 60 mg daily 2-Start with Lasix 20 mg daily 3-continue with Lisinopril and Metoprolol home meds 4-Hydralazine IV Q6PRN if needed Nephro to follow up in the am.
[2020-06-01] MEDS: NIFEdipine ER 30 MG TAB.ER.24 60 MG PO (06:43)
[2020-06-01] MEDS: lisinopriL 40 MG TABLET PO (06:44)
[2020-06-01 07:08] LABS: MANUAL DIFF FLAG NO
[2020-06-01 07:11] LABS: Basophils Percent Auto 0.4 % (0-2); Eosinophils Absolute Auto 0.2 X10*3/uL (0.0-0.4); Eosinophils Percent Auto 2.3 % (0-4); Hematocrit 42.3 % (37-47); Hemoglobin 14.1 g/dl (12.0-16.0); Imm Gran Abs Auto 0.02 X10*3/uL (0.00-0.03); Imm Gran Pct Auto 0.3 % (0.0-0.4); Lymphocytes Absolute Auto 1.2 X10*3/uL (1.2-4.9); Lymphocytes Percent Auto 15.9 % (20-40); Mean Corpuscular HGB Conc 33.3 g/dl (31.0-35.0); Mean Corpuscular Hemoglobin 31.4 pg (27.0-33.0); Mean Corpuscular Volume 94.2 fL (80-98); Mean Platelet Volume 11.3 fL (9.4-12.3); Monocytes Absolute Auto 0.4 X10*3/uL (0.1-1.2); Monocytes Percent Auto 5.2 % (2-11); Neutrophils Absolute Auto 5.8 X10*3/uL (2.0-8.3); Neutrophils Percent Auto 75.9 % (45-73); Platelet Count 148 X10*3/uL (160-400); Red Blood Count 4.49 X10*6/uL (4.20-5.50); Red Cell Distribution Width 12.9 % (11.0-16.0); White Blood Count 7.7 X10*3/uL (4.8-10.8)
[2020-06-01 07:21] LABS: Glucose, Whole Blood 102 mg/dL (60-115)
--- NOTE | 2020-06-01 07:21 | ECG_ITS ---
Test Reason : complete, needed order Blood Pressure : / mmHG Vent. Rate : 042 BPM Atrial Rate : 042 BPM P-R Int : 154 ms QRS Dur : 130 ms QT Int : 508 ms P-R-T Axes : 062 -34 -25 degrees QTc Int : 424 ms Marked sinus bradycardia with marked sinus arrhythmia Possible Left atrial enlargement Left anterior fascicular block Right bundle branch block T wave abnormality, consider inferior ischemia Abnormal ECG When compared with ECG of 31-MAY-2020 14:57, Premature supraventricular complexes are no longer Present T wave inversion now evident in Inferior leads T wave inversion now evident in Lateral leads Heart rate has decreased Referred By: Dean Gabriel Electronically Signed By:HOSSEIN BENNETT MD
[2020-06-01] MEDS: Furosemide 20 MG TABLET PO (07:53)
[2020-06-01] MEDS: Aspirin 81 MG TAB.CHEW PO (07:53)
[2020-06-01] MEDS: Metoprolol Tartrate 50 MG TABLET PO ×2 (07:53→20:30)
[2020-06-01 08:08] LABS: Anion Gap 12 (12-20); Blood Urea Nitrogen 14 mg/dL (9-16); Calcium 8.3 mg/dL (8.4-10.2); Carbon Dioxide 27 mmol/L (22-29); Chloride 104 mmol/L (96-108); Creatinine Clr Calc Pharmacy 32.4; Estimated Glomerular Filt Rate 42; Glucose Random 118 mg/dL (60-115); Potassium 4.1 mmol/l (3.3-5.1); Sodium 139 mmol/L (135-145)
[2020-06-01] MEDS: hydroCHLOROthiazide 25 MG TABLET PO (09:40)
[2020-06-01] MEDS: hydrALAZINE HCl 20 MG/ML VIAL IVPUSH (10:15)
--- NOTE | 2020-06-01 10:21 | P.CONCA_ITS ---
History of Present Illness History of Present Illness Date of Consult: June 01, 2020 Requesting physician: Dean Gabriel Chief complaint: Fall/HYPERTENSIVE URGENCY Narrative: 74-year-old female with known history of coronary artery disease with previous CABG which in 1995 while she was in [place], hypertension, falls, diabetic neuropathy, type 2 diabetes, renal artery stenosis and background of flash pulmonary edema. She is presenting with fall. She is saying she was walking and her legs gave way. This has happened before. She did not have syncope. She denies any chest discomfort shortness of breath. She is saying that she has slowed down and is not as active as before. she does not use a walker or cane But feels that she should be using a walker. She has been taking medications regularly and reports compliance with medications. February 2020 she had renal ultrasound which showed concern for severe left renal artery stenosis. Her blood sugar is significantly elevated. She has been given home medication but blood pressure still is elevated. She has no symptoms. Review of Systems Review of Systems: Yes all other systems are reviewed and are negative Musculoskeletal: Musculoskeletal: Reports abnormal gait Neurologic: Reports abnormal gait [facility] Past Medical History Medical History Diabetic neuropathy, type II diabetes mellitus Flash pulmonary edema Heart attack Hypertension Functional capacity: independent ambulation Surgical History Surgical History Aortocoronary bypass status Social History Social History Household Members: Children Housing: House Alcohol intake: never Smoking Status: Current every day smoker Tobacco Type: Cigarette Years Smoked: 60 Smoked in Last 30 Days: Yes Patient Interested in Nicotine Replacement: No Patient Given Instructions on How to Stop Smoking: No Second Hand Smoke Exposure: No Advance Directives: No Advance Directives Information Provided: No service: No Current occupational status: retired [employer] Allergies Allergy/AdvReac Type Severity Reaction Status Date / Time No Known Allergies Allergy Verified 05/31/20 21:43 Home Medications Medication Instructions Recorded Confirmed Type aspirin 81 mg PO DAILY 04/30/20 05/31/20 History metformin 500 mg PO BID 04/30/20 05/31/20 History metoprolol tartrate 50 mg PO BID 05/31/20 05/31/20 History Physical Exam Vital Signs: Vital Signs: Last Vital Signs Temp 98.0 F 06/01/20 07:44 Pulse 65 06/01/20 10:15 Resp 18 06/01/20 07:44 BP 200/81 H 06/01/20 10:15 Pulse Ox 96 06/01/20 07:44 Body Mass Index 22.4 GENERAL APPEARANCE: in no acute distress, well developed, well nourished. HEENT: unremarkable. HEAD: normocephalic, atraumatic. NECK/THYROID: no carotid bruit, no jugular venous distention. SKIN: no suspicious lesions, warm and dry. Midline scar from CABG. HEART: no murmurs, regular rate and rhythm, S1, S2 normal. LUNGS: clear to auscultation bilaterally. ABDOMEN: normal, bowel sounds present, soft, nontender, nondistended. EXTREMITIES: no clubbing, cyanosis, or edema. PERIPHERAL PULSES: equal. NEUROLOGIC: nonfocal, alert and oriented. PSYCH: mood/affect full range. Results Labs and Meds Result diagrams: 06/01/20 06:32 06/01/20 06:32 Lab results: Laboratory Results - last 24 hr 05/31/20 05/31/20 05/31/20 15:14 15:14 15:14 WBC 7.5 RBC 4.72 Hgb 15.1 Hct 44.1 MCV 93.4 MCH 32.0 MCHC 34.2 RDW 13.0 Plt Count 155 L MPV 10.9 Immature Gran % (Auto) 0.4 Neut % (Auto) 64.3 Lymph % (Auto) 25.9 [place] % (Auto) 5.3 Eos % (Auto) 3.3 Baso % (Auto) 0.8 Lymph # (Auto) 2.0 [place] # (Auto) 0.4 Eos # (Auto) 0.3 Baso # (Auto) 0.1 Abs Immat Gran (auto) 0.03 Absolute Neuts (auto) 4.9 Absolute Nucleated RBC 0.000 Nucleated RBC % (auto) 0.0 PT Cancelled INR Cancelled APTT Cancelled Sodium Cancelled Potassium Cancelled Chloride Cancelled Carbon Dioxide Cancelled Anion Gap Cancelled BUN Cancelled Creatinine Cancelled Estim Creat Clear Calc Cancelled Estimated GFR Cancelled POC Glucose Random Glucose Cancelled Calcium Cancelled Magnesium Cancelled Total Bilirubin Cancelled Direct Bilirubin Cancelled AST Cancelled ALT Cancelled Alkaline Phosphatase Cancelled Troponin I High Sens Total Protein Cancelled Albumin Cancelled Urine Color Urine Appearance Urine pH Ur Specific [place] Urine Protein Urine Glucose (UA) Urine Ketones Urine Blood Urine Nitrite Ur Leukocyte Esterase Urine RBC Urine WBC Ur Squamous Epith Cells Urine Bacteria Coronavirus (PCR) 05/31/20 05/31/20 05/31/20 15:14 17:15 17:37 WBC RBC Hgb Hct MCV MCH MCHC RDW Plt Count MPV Immature Gran % (Auto) Neut % (Auto) Lymph % (Auto) [place] % (Auto) Eos % (Auto) Baso % (Auto) Lymph # (Auto) [place] # (Auto) Eos # (Auto) Baso # (Auto) Abs Immat Gran (auto) Absolute Neuts (auto) Absolute Nucleated RBC Nucleated RBC % (auto) PT 11.0 INR 0.9 APTT 35.2 D Sodium Potassium Chloride Carbon Dioxide Anion Gap BUN Creatinine Estim Creat Clear Calc Estimated GFR POC Glucose Random Glucose Calcium Magnesium Total Bilirubin Direct Bilirubin AST ALT Alkaline Phosphatase Troponin I High Sens 25.1 H Total Protein Albumin Urine Color YELLOW Urine Appearance CLEAR Urine pH 6.0 Ur Specific [place] 1.025 Urine Protein 1+ H Urine Glucose (UA) NEG Urine Ketones NEG Urine Blood NEG Urine Nitrite NEG Ur Leukocyte Esterase NEG Urine RBC 0 Urine WBC 1-4 Ur Squamous Epith Cells 1+ Urine Bacteria TRACE Coronavirus (PCR) 05/31/20 05/31/20 05/31/20 17:50 23:55 23:55 WBC RBC Hgb Hct MCV MCH MCHC RDW Plt Count MPV Immature Gran % (Auto) Neut % (Auto) Lymph % (Auto) [place] % (Auto) Eos % (Auto) Baso % (Auto) Lymph # (Auto) [place] # (Auto) Eos # (Auto) Baso # (Auto) Abs Immat Gran (auto) Absolute Neuts (auto) Absolute Nucleated RBC Nucleated RBC % (auto) PT INR APTT Sodium 141 Potassium 4.1 Chloride 108 Carbon Dioxide 23 Anion Gap 14 BUN 13 Creatinine 1.10 Estim Creat Clear Calc 37.1 Estimated GFR 49 POC Glucose Random Glucose 77 Calcium 8.1 L D Magnesium 1.7 Total Bilirubin 0.5 Direct Bilirubin 0.3 AST 16 ALT 12 Alkaline Phosphatase 86 Troponin I High Sens 25.4 H Total Protein 6.1 L Albumin 3.7 Urine Color Urine Appearance Urine pH Ur Specific [place] Urine Protein Urine Glucose (UA) Urine Ketones Urine Blood Urine Nitrite Ur Leukocyte Esterase Urine RBC Urine WBC Ur Squamous Epith Cells Urine Bacteria Coronavirus (PCR) NEGATIVE 06/01/20 06/01/20 06/01/20 06:32 06:32 07:13 WBC 7.7 RBC 4.49 Hgb 14.1 Hct 42.3 MCV 94.2 MCH 31.4 MCHC 33.3 RDW 12.9 Plt Count 148 L MPV 11.3 Immature Gran % (Auto) 0.3 Neut % (Auto) 75.9 H Lymph % (Auto) 15.9 L [place] % (Auto) 5.2 Eos % (Auto) 2.3 Baso % (Auto) 0.4 Lymph # (Auto) 1.2 [place] # (Auto) 0.4 Eos # (Auto) 0.2 Baso # (Auto) 0.0 Abs Immat Gran (auto) 0.02 Absolute Neuts (auto) 5.8 Absolute Nucleated RBC 0.000 Nucleated RBC % (auto) 0.0 PT INR APTT Sodium 139 Potassium 4.1 Chloride 104 Carbon Dioxide 27 Anion Gap 12 BUN 14 Creatinine 1.26 Estim Creat Clear Calc 32.4 Estimated GFR 42 POC Glucose 102 Random Glucose 118 H D Calcium 8.3 L Magnesium Total Bilirubin Direct Bilirubin AST ALT Alkaline Phosphatase Troponin I High Sens Total Protein Albumin Urine Color Urine Appearance Urine pH Ur Specific [place] Urine Protein Urine Glucose (UA) Urine Ketones Urine Blood Urine Nitrite Ur Leukocyte Esterase Urine RBC Urine WBC Ur Squamous Epith Cells Urine Bacteria Coronavirus (PCR) Cardiology Testing Echo: report reviewed (ECHO in August 2019 showing normal biventricular function.) Imaging Renal Ultrasound: Radiologist's impression: Renal ultrasound in February 2020 showing severe left renal artery stenosis as well as at least moderate right-sided stenosis. Assessment and Plan (1) HTN (hypertension): Qualifiers: Hypertension type: unspecified Qualified Code(s): I10 - Essential (primary) hypertension Status: Acute (2) Fall: Qualifiers: Encounter type: initial encounter Qualified Code(s): W19.XXXA - Unspecified fall, initial encounter Status: Acute (3) Renal artery stenosis: Status: Acute 74-year-old female With known history of coronary disease with previous bypass surgery, diabetes, diabetic neuropathy, renal artery stenosis with uncontrolled hypertension. She is presenting for fall and is complaining that her legs give way. She has known diabetic neuropathy and is difficult to know what his exact reason for her leg weakness. She clearly did not have syncope. She has significantly elevated blood pressures. She has known renal artery stenosis. This could be linked with renal artery stenosis. I think we need to control blood pressure better I am adding 25 mg of hydrochlorothiazide. Continue the other regimen as before. She may need intervention for renal artery stenosis if her blood pressure is not controlled despite multiple medications. She should be on baby aspirin and statin therapy given her known history of coronary disease and previous bypass surgery. We will follow along with you. Thank you for allowing me to participate in the care of your patient. Please feel free to contact me if you have any questions.
--- NOTE | 2020-06-01 10:25 | PM.CNNEP ---
History of Present Illness Reason for Consult Consult date: 06/01/20 Chief Complaint Chief complaint: Fall/HYPERTENSIVE URGENCY History of Present Illness Narrative: Falling episode d/t legs giveing out on her. In ER BP severely elevated. Seen during her last hosp and noted signif WENDY and she was suppose to have f/u cvascular and proceed with stenting d/t resistant HTN and pulm edema presumably from severre WENDY. Despite getting multiple BP she cont now to have SBP 200. No CP/SOB or HAs. No palipatations or tremors Review of Systems Musculoskeletal: Reports abnormal gait Reports abnormal gait [facility] Past Medical History Medical History Diabetic neuropathy, type II diabetes mellitus Flash pulmonary edema Heart attack Hypertension Functional capacity: independent ambulation Surgical History Surgical History Aortocoronary bypass status Social History Social History Household Members: Children Housing: House Alcohol intake: never Smoking Status: Current every day smoker Tobacco Type: Cigarette Years Smoked: 60 Smoked in Last 30 Days: Yes Patient Interested in Nicotine Replacement: No Patient Given Instructions on How to Stop Smoking: No Second Hand Smoke Exposure: No Advance Directives: No Advance Directives Information Provided: No service: No Current occupational status: retired [employer] Allergies Allergy/AdvReac Type Severity Reaction Status Date / Time No Known Allergies Allergy Verified 05/31/20 21:43 Home Medications Medication Instructions Recorded Confirmed Type aspirin 81 mg PO DAILY 04/30/20 05/31/20 History metformin 500 mg PO BID 04/30/20 05/31/20 History metoprolol tartrate 50 mg PO BID 05/31/20 05/31/20 History Physical Exam Vital Signs: Last Vital Signs Temp 98.0 F 06/01/20 07:44 Pulse 65 06/01/20 10:15 Resp 18 06/01/20 07:44 BP 200/81 H 06/01/20 10:15 Pulse Ox 96 06/01/20 07:44 Body Mass Index 22.4 Appearance: Alert. Oriented X3. No acute distress. Eyes: Pupils equal, round and reactive to light. has some nystagmus horizontal both left to right with finger tracing, no other abnormalities noted ENT: Pharynx normal. Neck: Normal inspection. Neck supple. CVS: Normal heart rate and rhythm. Pulses normal. Respiratory: No respiratory distress. Breath sounds normal. Abdomen: Soft and nontender. Skin: Skin warm and dry. Normal skin color. Normal skin turgor. Extremities: No lower extremity edema. No calf ttp Neuro: Oriented X 3. No motor deficit. No sensory deficit. slight RUE pronator drift Const General: cooperative, comfortable and no acute distress Orientation/consciousness: patient oriented x3 HENMT Head: Yes normal to inspection Eyes General: appearance normal, both eyes and all related structures Neck Neck: Yes normal visual inspection Chest Chest palpation & inspection: normal inspection of the chest Resp Effort & Inspection: normal respiratory effort Cardio Jugular venous distension: no JVD Rate: regular rate Rhythm: regular rhythm Heart sounds: S1 normal heart sound present and S2 normal heart sound present GI Inspection: Yes normal to inspection Skin General skin exam: no rashes or lesions noted Neuro General: patient oriented x3 Extrem General: Yes normal to inspection Psych Appearance: grossly normal Results Lab Results Result Diagrams: 06/01/20 06:32 06/01/20 06:32 Lab results: Chemistry 05/31/20 05/31/20 06/01/20 15:14 17:50 06:32 Sodium Cancelled 141 139 Potassium Cancelled 4.1 4.1 Carbon Dioxide Cancelled 23 27 BUN Cancelled 13 14 Creatinine Cancelled 1.10 1.26 Calcium Cancelled 8.1 L D 8.3 L Hematology 05/31/20 06/01/20 15:14 06:32 WBC 7.5 7.7 Hgb 15.1 14.1 Plt Count 155 L 148 L Urinalysis 05/31/20 17:15 Urine Color YELLOW Urine Appearance CLEAR Urine pH 6.0 Ur Specific [place] 1.025 Urine Protein 1+ H Urine Glucose (UA) NEG Urine Ketones NEG Urine Blood NEG Urine Nitrite NEG Ur Leukocyte Esterase NEG Urine RBC 0 Urine WBC 1-4 Ur Squamous Epith Cells 1+ Assessment and Plan (1) Renal artery stenosis: Status: Acute (2) Hypertensive crisis: Status: Acute (3) Diabetic neuropathy, type II diabetes mellitus: Status: Acute (4) Fall: Qualifiers: Encounter type: initial encounter Qualified Code(s): W19.XXXA - Unspecified fall, initial encounter Status: Acute 1. Severe HTN: c/w WENDY based on prior w/u and needs vasc intervention 2. DM 3. Unsteady gait 4. CKD 3 REC:proceed with PTRA wednesday jeramy Sarmiento incr BP meds as noted and d/w with med team procardia 60 bid; llisinoptril 40 qd; HCTZ 25 qd;lopressor 50 bid; hydralazine 20 IV q6 hrs prn
[2020-06-01 11:12] LABS: Glucose, Whole Blood 165 mg/dL (60-115)
[2020-06-01] MEDS: Insulin Lispro 100 UNIT/ML 3 ML VIAL SUBCUT (11:54)
--- NOTE | 2020-06-01 13:02 | MHC.CM.PN ---
Pt reports she lives at home with her daughter and is independent with both care and mobility. Pt reports she has no services and no DME. Pt confirms her PCP is Jerry Hart and reports she has a HCP completed naming her daughter as her agent. Observation notice explained and copy provided current DC plan is home with no services family will provide transportation
--- NOTE | 2020-06-01 15:01 | P.PNIM_ITS ---
Subjective Subjective Date of Service: 06/01/20 Interval History: seen and examined this morning. 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, no euceda, no sob, no vision changes Review of Systems General - no fevers or chills Cardiovascular - no chest pain Respiratory - no shortness of breath or cough Abdominal- no abdominal pain, nausea, vomiting, diarrhea Physical Exam Vital Signs: Vital Signs: Last Vital Signs Temp 98.6 F 06/01/20 11:11 Pulse 78 06/01/20 11:11 Resp 18 06/01/20 11:11 BP 165/71 H 06/01/20 11:15 Pulse Ox 98 06/01/20 11:11 Body Mass Index 22.4 General - no acute distress, appears comfortable Cardiovascular - regular rate and rhythm, S1-S2 Lungs - normal respiratory effort, clear to auscultation bilaterally, no wheezing Abdomen - soft, nontender, no rebound regarding Extremities - no edema bilaterally Neuro - awake and alert, no focal deficits Objective Data Current Medications Generic Name Dose Route Start Last Admin Trade Name Freq PRN Reason Stop Dose Admin Aspirin 81 mg 06/01/20 09:00 06/01/20 07:53 Aspirin 81 Mg Tab.Chew PO 81 mg DAILY [facility] Administration Heparin Sodium (Porcine) 5,000 unit 06/01/20 06:00 06/01/20 13:17 Heparin Sodium,Porcine 5,000 Unit/Ml Vial SUBCUT 5,000 unit Q8H [facility] Administration Hydralazine HCl 20 mg 06/01/20 06:11 06/01/20 10:15 Hydralazine Hcl 20 Mg/Ml Vial IVPUSH 20 mg Q6H PRN Administration hypertension Hydrochlorothiazide 25 mg 06/01/20 09:30 06/01/20 09:40 Hydrochlorothiazide 25 Mg Tablet PO 25 mg DAILY [facility] Administration Protocol Insulin Human Lispro 0 unit 06/01/20 07:30 06/01/20 11:54 Insulin Lispro 100 Unit/Ml 3 Ml Vial SUBCUT 06/01/20 23:39 2 unit QIDACHS [facility] Administration Protocol Lisinopril 40 mg 06/01/20 09:00 06/01/20 06:44 Lisinopril 40 Mg Tablet PO 40 mg DAILY [facility] Administration Protocol Metoprolol Tartrate 50 mg 06/01/20 09:00 06/01/20 07:53 Metoprolol Tartrate 50 Mg Tablet PO 50 mg BID [facility] Administration Protocol Nifedipine 60 mg 06/02/20 06:00 Nifedipine Er 60 Mg Tab.Er.24 PO DAILY [facility] Protocol Sodium Chloride 3 ml 06/01/20 03:05 06/01/20 07:48 0.9 % Sodium Chloride Flush 3 Ml Syringe IVFLUSH 3 ml QSHIFT [facility] Administration Labs CBC & Chem 7: 06/01/20 06:32 06/01/20 06:32 Assessment and Plan (1) HTN (hypertension): Status: Acute Assessment and Plan: This is a 74 yo F known to me from her last admission in Apr 2020 who is again admitted for uncontrolled BP 1. Uncontrolled HTN due to WENDY + ? compliance issues with meds metoprolol 50mg bid + lisinopril 40mg + nifedipine xl 60mg (may increase to BID if remaind uncontrolled) + hctz 25mg vascular consult on Wednesday for intervention of her WENDY if bp uncontrolled 2. CAD - s/p cabg on bb and asa statin added 3. DM hold metformin in case any contrast studies needed use ISS DM diet + POC QIDAC Full Code DVT pptx, heparin
[2020-06-01 16:16] LABS: Glucose, Whole Blood 117 mg/dL (60-115)
[2020-06-01] MEDS: Atorvastatin Calcium 20 MG TABLET PO (20:30)
[2020-06-01 21:03] LABS: Glucose, Whole Blood 141 mg/dL (60-115)
[2020-06-02] VITALS (10 sets, daily range): BP systolic 145–180; BP diastolic 64–79; PULSE 49–62; RESP 18–20; TEMP 36.4–37; O2SAT 95–98
[2020-06-02] MEDS: NIFEdipine ER 60 MG TAB.ER.24 PO ×2 (06:30→18:08)
[2020-06-02] MEDS: Heparin Sodium,Porcine 5,000 UNIT/ML VIAL 5000 UNIT SUBCUT ×3 (06:31→22:15)
[2020-06-02] MEDS: Aspirin 81 MG TAB.CHEW PO (09:29)
[2020-06-02] MEDS: lisinopriL 40 MG TABLET PO (09:30)
[2020-06-02] MEDS: 0.9 % Sodium Chloride Flush 3 ML SYRINGE IVFLUSH ×2 (09:31→16:05)
[2020-06-02] MEDS: hydroCHLOROthiazide 25 MG TABLET PO (09:32)
[2020-06-02 11:20] LABS: Glucose, Whole Blood 155 mg/dL (60-115)
[2020-06-02] MEDS: hydrALAZINE HCl 50 MG TABLET PO ×3 (11:36→22:15)
--- NOTE | 2020-06-02 15:07 | HO.PM.IMPN ---
Subjective Subjective Date of Service: 06/02/20 Interval History: seen and examined this AM no complaints Review of Systems General - no fevers or chills Cardiovascular - no chest pain Respiratory - no shortness of breath or cough Abdominal- no abdominal pain, nausea, vomiting, diarrhea Neuro - no [place]EDA Physical Exam Vital Signs: Vital Signs: Last Vital Signs Temp 98.3 F 06/02/20 11:29 Pulse 55 06/02/20 11:36 Resp 18 06/02/20 11:29 BP 150/73 H 06/02/20 11:36 Pulse Ox 96 06/02/20 11:29 Body Mass Index 22.4 General - no acute distress, appears comfortable Cardiovascular - regular rate and rhythm, S1-S2 Lungs - normal respiratory effort, clear to auscultation bilaterally, no wheezing Abdomen - soft, nontender, no rebound regarding Extremities - no edema bilaterally Neuro - awake and alert, no focal deficits Objective Data Current Medications Generic Name Dose Route Start Last Admin Trade Name Freq PRN Reason Stop Dose Admin Aspirin 81 mg 06/01/20 09:00 06/02/20 09:29 Aspirin 81 Mg Tab.Chew PO 81 mg DAILY [facility] Administration Atorvastatin Calcium 20 mg 06/01/20 21:00 06/01/20 20:30 Atorvastatin Calcium 20 Mg Tablet PO 20 mg BEDTIME [facility] Administration Heparin Sodium (Porcine) 5,000 unit 06/01/20 06:00 06/02/20 13:15 Heparin Sodium,Porcine 5,000 Unit/Ml Vial SUBCUT 5,000 unit Q8H [facility] Administration Hydralazine HCl 20 mg 06/01/20 15:14 Hydralazine Hcl 20 Mg/Ml Vial IVPUSH Q6H PRN SBP > 200 Hydralazine HCl 50 mg 06/02/20 09:45 06/02/20 11:36 Hydralazine Hcl 50 Mg Tablet PO 50 mg TID [facility] Administration Protocol Hydrochlorothiazide 25 mg 06/01/20 09:30 06/02/20 09:32 Hydrochlorothiazide 25 Mg Tablet PO 25 mg DAILY [facility] Administration Protocol Lisinopril 40 mg 06/01/20 09:00 06/02/20 09:30 Lisinopril 40 Mg Tablet PO 40 mg DAILY [facility] Administration Protocol Nifedipine 60 mg 06/02/20 18:00 Nifedipine Er 60 Mg Tab.Er.24 PO Q12H [facility] Protocol Sodium Chloride 3 ml 06/01/20 03:05 06/02/20 09:31 0.9 % Sodium Chloride Flush 3 Ml Syringe IVFLUSH 3 ml QSHIFT [facility] Administration Labs CBC & Chem 7: 06/01/20 06:32 06/01/20 06:32 Assessment and Plan (1) HTN (hypertension): Status: Acute Assessment and Plan: This is a 74 yo F known to me from her last admission in Apr 2020 who is again admitted for uncontrolled BP 1. Uncontrolled HTN, due to WENDY improving trend, still not idea Nifedipine 60mg bid, lisinopril 40mg daily, hydralaine 50mg tid, hctz 25mg hold metoprolol today due to bradycardia, probably will need to reduce to toprol 25mg daily tomorrow vascular consult on Wednesday for intervention of her WENDY if bp uncontrolled 2. CAD - s/p cabg asa and statin metoprolol on hold due to bradycardia 3. DM hold metformin in case any contrast studies needed use ISS DM diet + POC QIDAC Full Code DVT pptx, heparin
[2020-06-02 16:30] LABS: Glucose, Whole Blood 139 mg/dL (60-115)
--- NOTE | 2020-06-02 16:55 | P.PNCA_ITS ---
Subjective Subjective Interval history: BP improving but still elevated. No CP or SOB. Review of Systems Review of Systems No CP Musculoskeletal: Reports abnormal gait Reports abnormal gait Physical Exam Vital Signs: Last Vital Signs Temp 97.9 F 06/02/20 15:17 Pulse 57 06/02/20 15:17 Resp 18 06/02/20 15:17 BP 158/72 H 06/02/20 15:17 Pulse Ox 98 06/02/20 15:17 Body Mass Index 22.4 GENERAL APPEARANCE: in no acute distress, well developed, well nourished. HEENT: unremarkable. HEAD: normocephalic, atraumatic. NECK/THYROID: no carotid bruit, no jugular venous distention. SKIN: no suspicious lesions, warm and dry. Midline scar from CABG. HEART: no murmurs, regular rate and rhythm, S1, S2 normal. LUNGS: clear to auscultation bilaterally. ABDOMEN: normal, bowel sounds present, soft, nontender, nondistended. EXTREMITIES: no clubbing, cyanosis, or edema. PERIPHERAL PULSES: equal. NEUROLOGIC: nonfocal, alert and oriented. PSYCH: mood/affect full range. Results Labs and Meds Result diagrams: 06/01/20 06:32 06/01/20 06:32 Lab results: Laboratory Results - last 24 hr 06/01/20 06/02/20 06/02/20 21:00 11:12 16:27 POC Glucose 141 H 155 H 139 H Progress Note: A&P Assessment and plan (1) HTN (hypertension): Status: Acute (2) Fall: Status: Acute (3) Renal artery stenosis: Status: Acute Assessment and Plan: 74 year old female with CAD s/p CABG, HTN and renal artery stenosis. BP is still high but improving. Sinus bradycardia - asymptomatic. Decrease the metoprolol to 25 mg Toprol XL. Nephrology following and adjusting BP meds. Vascular surgery to comment about the WENDY. Fall Risk Details Current Medications: Current Medications Generic Name Dose Route Start Last Admin Trade Name Freq PRN Reason Stop Dose Admin Aspirin 81 mg 06/01/20 09:00 06/02/20 09:29 Aspirin 81 Mg Tab.Chew PO 81 mg DAILY [facility] Administration Atorvastatin Calcium 20 mg 06/01/20 21:00 06/01/20 20:30 Atorvastatin Calcium 20 Mg Tablet PO 20 mg BEDTIME [facility] Administration Heparin Sodium (Porcine) 5,000 unit 06/01/20 06:00 06/02/20 13:15 Heparin Sodium,Porcine 5,000 Unit/Ml Vial SUBCUT 5,000 unit Q8H [facility] Administration Hydralazine HCl 20 mg 06/01/20 15:14 Hydralazine Hcl 20 Mg/Ml Vial IVPUSH Q6H PRN SBP > 200 Hydralazine HCl 50 mg 06/02/20 09:45 06/02/20 16:05 Hydralazine Hcl 50 Mg Tablet PO 50 mg TID [facility] Administration Protocol Hydrochlorothiazide 25 mg 06/01/20 09:30 06/02/20 09:32 Hydrochlorothiazide 25 Mg Tablet PO 25 mg DAILY [facility] Administration Protocol Lisinopril 40 mg 06/01/20 09:00 06/02/20 09:30 Lisinopril 40 Mg Tablet PO 40 mg DAILY [facility] Administration Protocol Nifedipine 60 mg 06/02/20 18:00 Nifedipine Er 60 Mg Tab.Er.24 PO Q12H [facility] Protocol Sodium Chloride 3 ml 06/01/20 03:05 06/02/20 16:05 0.9 % Sodium Chloride Flush 3 Ml Syringe IVFLUSH 3 ml QSHIFT [facility] Administration Time Spent With Patient Time: Total time spent is greater than 50% in coordination of care (as documented) at patient's floor/unit and/or counseling patient: Time with patient: less than 15 minutes
--- NOTE | 2020-06-02 17:41 | PM.PNNEP ---
Subjective Subjective Interval history: Seen and examined. Events noted BP improving but still elevated. No CP or SOB. Physical Exam Vital Signs: Vital Signs: Last Vital Signs Temp 97.9 F 06/02/20 15:17 Pulse 57 06/02/20 15:17 Resp 18 06/02/20 15:17 BP 158/72 H 06/02/20 15:17 Pulse Ox 98 06/02/20 15:17 Body Mass Index 22.4 Appearance: Alert. Oriented X3. No acute distress. Eyes: Pupils equal, round and reactive to light. has some nystagmus horizontal both left to right with finger tracing, no other abnormalities noted ENT: Pharynx normal. Neck: Normal inspection. Neck supple. CVS: Normal heart rate and rhythm. Pulses normal. Respiratory: No respiratory distress. Breath sounds normal. Abdomen: Soft and nontender. Skin: Skin warm and dry. Normal skin color. Normal skin turgor. Extremities: No lower extremity edema. No calf ttp Neuro: Oriented X 3. No motor deficit. No sensory deficit. slight RUE pronator drift Const: General: cooperative, comfortable and no acute distress Orientation/consciousness: patient oriented x3 HENMT: Head: Yes normal to inspection Eyes: General: appearance normal, both eyes and all related structures Neck: Neck: Yes normal visual inspection Chest: Chest palpation & inspection: normal inspection of the chest Resp: Effort & Inspection: normal respiratory effort Cardio: Jugular venous distension: no JVD Rate: regular rate Rhythm: regular rhythm Heart sounds: S1 normal heart sound present and S2 normal heart sound present GI: Inspection: Yes normal to inspection Skin: General skin exam: no rashes or lesions noted Neuro: General: patient oriented x3 Extrem: General: Yes normal to inspection Psych: Appearance: grossly normal Assessment & Plan Assessment and plan (1) Renal artery stenosis: Status: Acute (2) Hypertensive crisis: Status: Acute (3) Diabetic neuropathy, type II diabetes mellitus: Status: Acute (4) Fall: Status: Acute Assessment and Plan: 1. Severe HTN: c/w WENDY based on prior w/u and needs vasc intervention BP cont runing high and grad decr as we titrate up meds 2. DM 3. Unsteady gait 4. CKD 3 REC:proceed with PTRA wednesday jeramy Sarmiento incr BP meds as noted and d/w with med team add hydralazine 50 tid po procardia 60 bid; llisinoptril 40 qd; HCTZ 25 qd;lopressor 50 bid; hydralazine 20 IV q6 hrs prn Time Spent With Patient Time: Total time spent is greater than 50% in coordination of care (as documented) at patient's floor/unit and/or counseling patient:
[2020-06-02 20:53] LABS: Glucose, Whole Blood 107 mg/dL (60-115)
[2020-06-02] MEDS: Atorvastatin Calcium 20 MG TABLET PO (22:15)
[2020-06-03] VITALS (11 sets, daily range): BP systolic 123–156; BP diastolic 60–80; PULSE 68–90; RESP 18–20; TEMP 36.4–36.8; O2SAT 96–98
[2020-06-03] MEDS: 0.9 % Sodium Chloride Flush 3 ML SYRINGE IVFLUSH ×2 (00:52→08:58)
[2020-06-03] MEDS: Heparin Sodium,Porcine 5,000 UNIT/ML VIAL 5000 UNIT SUBCUT (06:21)
[2020-06-03] MEDS: NIFEdipine ER 60 MG TAB.ER.24 PO ×2 (06:22→18:30)
[2020-06-03 07:12] LABS: Glucose, Whole Blood 118 mg/dL (60-115)
[2020-06-03] MEDS: hydrALAZINE HCl 50 MG TABLET PO ×3 (08:56→20:46)
[2020-06-03] MEDS: lisinopriL 40 MG TABLET PO (08:57)
[2020-06-03] MEDS: hydroCHLOROthiazide 25 MG TABLET PO (08:57)
[2020-06-03] MEDS: Aspirin 81 MG TAB.CHEW PO (08:57)
--- NOTE | 2020-06-03 10:18 | P.PNIM_ITS ---
Subjective Subjective Interval History: seen and examined this AM no complaints pineda resolved with improved bp trend Review of Systems General - no fevers or chills Cardiovascular - no chest pain Respiratory - no shortness of breath or cough Abdominal- no abdominal pain, nausea, vomiting, diarrhea Neuro - no PINEDA Physical Exam Vital Signs: Vital Signs: Last Vital Signs Temp 98.3 F 06/03/20 07:32 Pulse 80 06/03/20 08:57 Resp 18 06/03/20 07:32 BP 132/64 06/03/20 08:57 Pulse Ox 97 06/03/20 07:32 Body Mass Index 22.4 General - no acute distress, appears comfortable Cardiovascular - regular rate and rhythm, S1-S2 Lungs - normal respiratory effort, clear to auscultation bilaterally, no wheezing Abdomen - soft, nontender, no rebound regarding Extremities - no edema bilaterally Neuro - awake and alert, no focal deficits Objective Data Current Medications Generic Name Dose Route Start Last Admin Trade Name Freq PRN Reason Stop Dose Admin Aspirin 81 mg 06/01/20 09:00 06/03/20 08:57 Aspirin 81 Mg Tab.Chew PO 81 mg DAILY BROWN Administration Atorvastatin Calcium 20 mg 06/01/20 21:00 06/02/20 22:15 Atorvastatin Calcium 20 Mg Tablet PO 20 mg BEDTIME BROWN Administration Heparin Sodium (Porcine) 5,000 unit 06/01/20 06:00 06/03/20 06:21 Heparin Sodium,Porcine 5,000 Unit/Ml Vial SUBCUT 5,000 unit Q8H BROWN Administration Hydralazine HCl 20 mg 06/01/20 15:14 Hydralazine Hcl 20 Mg/Ml Vial IVPUSH Q6H PRN SBP > 200 Hydralazine HCl 50 mg 06/02/20 09:45 06/03/20 08:56 Hydralazine Hcl 50 Mg Tablet PO 50 mg TID BROWN Administration Protocol Hydrochlorothiazide 25 mg 06/01/20 09:30 06/03/20 08:57 Hydrochlorothiazide 25 Mg Tablet PO 25 mg DAILY BROWN Administration Protocol Lisinopril 40 mg 06/01/20 09:00 06/03/20 08:57 Lisinopril 40 Mg Tablet PO 40 mg DAILY BROWN Administration Protocol Nifedipine 60 mg 06/02/20 18:00 06/03/20 06:22 Nifedipine Er 60 Mg Tab.Er.24 PO 60 mg Q12H BROWN Administration Protocol Sodium Chloride 3 ml 06/01/20 03:05 06/03/20 08:58 0.9 % Sodium Chloride Flush 3 Ml Syringe IVFLUSH 3 ml QSHIFT [facility] Administration Labs CBC & Chem 7: 06/01/20 06:32 06/01/20 06:32 Assessment and Plan (1) HTN (hypertension): Status: Acute Assessment and Plan: This is a 74 yo F known to me from her last admission in Apr 2020 who is again admitted for uncontrolled BP 1. Uncontrolled HTN, due to WENDY improving trend Nifedipine 60mg bid, lisinopril 40mg daily, hydralaine 50mg tid, hctz 25mg add metoprolol 25mg xl today if HR allows, (metoprolol 50mg bid dc'ed due to bradycardia) seen by vascular and renal today -- plan for surgical intervention tomorrow. Patient agreeable. She has had multiple readmissions for BP due to her WENDY. 2. CAD - s/p cabg asa and statin BB if HR allows 3. DM metformin has been on hold use ISS DM diet + POC QIDAC Full Code DVT pptx, heparin
[2020-06-03 11:07] LABS: Glucose, Whole Blood 226 mg/dL (60-115)
--- NOTE | 2020-06-03 11:19 | PM.EVENT ---
Event Note Event Note: Full consult dictated. Patient with known renal artery stenosis. Patient seen with Dr. Farley. Patient is agreeable for renal artery stent for tomorrow.
--- NOTE | 2020-06-03 11:29 | P.PNNP_ITS ---
Subjective Subjective Interval history: seen and examined this AM no complaints PINEDA resolved with improved bp trend BP this am much better Review of Systems General - no fevers or chills Cardiovascular - no chest pain Respiratory - no shortness of breath or cough Abdominal- no abdominal pain, nausea, vomiting, diarrhea Neuro - no PINEDA Physical Exam Vital Signs: Vital Signs: Last Vital Signs Temp 97.9 F 06/03/20 11:18 Pulse 77 06/03/20 11:18 Resp 18 06/03/20 11:18 BP 123/60 06/03/20 11:18 Pulse Ox 97 06/03/20 11:18 Body Mass Index 22.4 Appearance: Alert. Oriented X3. No acute distress. Eyes: Pupils equal, round and reactive to light. has some nystagmus horizontal both left to right with finger tracing, no other abnormalities noted ENT: Pharynx normal. Neck: Normal inspection. Neck supple. CVS: Normal heart rate and rhythm. Pulses normal. Respiratory: No respiratory distress. Breath sounds normal. Abdomen: Soft and nontender. Skin: Skin warm and dry. Normal skin color. Normal skin turgor. Extremities: No lower extremity edema. No calf ttp Neuro: Oriented X 3. No motor deficit. No sensory deficit. slight RUE pronator drift Const: General: cooperative, comfortable and no acute distress Orientation/consciousness: patient oriented x3 HENMT: Head: Yes normal to inspection Eyes: General: appearance normal, both eyes and all related structures Neck: Neck: Yes normal visual inspection Chest: Chest palpation & inspection: normal inspection of the chest Resp: Effort & Inspection: normal respiratory effort Cardio: Jugular venous distension: no JVD Rate: regular rate Rhythm: regular rhythm Heart sounds: S1 normal heart sound present and S2 normal hea rt sound present GI: Inspection: Yes normal to inspection Skin: General skin exam: no rashes or lesions noted Neuro: General: patient oriented x3 Extrem: General: Yes normal to inspection Psych: Appearance: grossly normal Assessment & Plan Assessment and plan (1) Renal artery stenosis: Status: Acute (2) Hypertensive crisis: Status: Acute (3) Diabetic neuropathy, type II diabetes mellitus: Status: Acute (4) Fall: Status: Acute Assessment and Plan: 1. Severe HTN: this am BP much better controlled; w/u c/w WENDY based on prior w/u and needs vasc intervention 2. DM 3. Unsteady gait 4. CKD 3 REC:proceed with PTRA wednesday jeramy Sarmiento cont BP meds as noted procardia 60 bid; llisinoptril 40 qd; HCTZ 25 qd;lopressor 50 bid; hydralazine 50 po tid Time Spent With Patient Time: Total time spent is greater than 50% in coordination of care (as documented) at patient's floor/unit and/or counseling patient:
--- NOTE | 2020-06-03 11:58 | P.PNCA_ITS ---
Subjective Subjective Interval history: seen and examined this AM no complaints PINEDA resolved with improved bp trend BP this am much better Review of Systems Review of Systems Yes all other systems are reviewed and are negative Constitutional: Denies body ache(s), Denies lethargy and Denies malaise Cardiovascular: Denies chest pain, Denies irregular heart rhythm, Denies lightheadedness and Denies Loss of Consciousness Respiratory: Reports no additional respiratory complaints Musculoskeletal: Reports abnormal gait Reports system reviewed and no additional complaints, except as documented and Reports abnormal gait Hematologic/Lymphatic: Reports no additional hematologic/lymphatic complaints Physical Exam Vital Signs: Last Vital Signs Temp 97.9 F 06/03/20 11:18 Pulse 77 06/03/20 11:18 Resp 18 06/03/20 11:18 BP 123/60 06/03/20 11:18 Pulse Ox 97 06/03/20 11:18 Body Mass Index 22.4 Const General: cooperative, comfortable, no acute distress, alert and awake Nutritional Appearance: thin Orientation/consciousness: patient oriented x3 Limitations: no limitations HENMT Head: Yes normal to inspection, Yes normocephalic and Yes atraumatic Eyes General: appearance normal, both eyes and all related structures Chest Chest palpation & inspection: normal inspection of the chest Resp Effort & Inspection: normal respiratory effort Auscultation: clear to auscultation bilaterally Cardio Rate: regular rate Rhythm: regular rhythm Heart sounds: S1 normal heart sound present, S2 normal heart sound present and Other heart sounds present ( S4 present) GI Auscultation: normal bowel sounds Skin General skin exam: no rashes or lesions noted Neuro General: patient oriented x3 and no focal motor deficits Extrem General: Yes no clubbing, cyanosis or edema Results Labs and Meds Result diagrams: 06/01/20 06:32 06/01/20 06:32 Lab results: Laboratory Results - last 24 hr 06/02/20 06/02/20 06/03/20 16:27 20:47 07:03 POC Glucose 139 H 107 118 H 06/03/20 11:01 POC Glucose 226 H Progress Note: A&P Assessment and plan (1) Hypertensive crisis: Status: Acute Assessment and Plan: hypertensive crisis with normal as blood pressure on usual medications. This raises a question of noncompliance. This would also be related to renal artery stenosis. Has being seen by Dr. Sarmiento and plan for renal artery stenting tomorrow if possible. She initially was hesitant but is currently agreeable. I discussed with her the risks and benefits. Meanwhile continue current medications. Need to monitor for 1 day post stenting to evaluate for blood pre ssure response as well as renal function. Will sign of the case at current time. (2) Renal artery stenosis: Status: Acute Assessment and Plan: Renal artery stenosis. Aggressive medical therapy needs to be pursued. Agree with renal artery stenting as recommended by vascular and Nephrology. Will benefit long-term with blood pressure control and avoidance of hospitalization. Aggressive vascular risk factor modification needs to be pursued including high- intensity statin therapy with target goal LDL less than 70 mg/dL. Fall Risk Details Current Medications: Current Medications Generic Name Dose Route Start Last Admin Trade Name Freq PRN Reason Stop Dose Admin Aspirin 81 mg 06/01/20 09:00 06/03/20 08:57 Aspirin 81 Mg Tab.Chew PO 81 mg DAILY BROWN Administration Atorvastatin Calcium 20 mg 06/01/20 21:00 06/02/20 22:15 Atorvastatin Calcium 20 Mg Tablet PO 20 mg BEDTIME BROWN Administration Heparin Sodium (Porcine) 5,000 unit 06/01/20 06:00 06/03/20 06:21 Heparin Sodium,Porcine 5,000 Unit/Ml Vial SUBCUT 5,000 unit Q8H [facility] Administration Hydralazine HCl 20 mg 06/01/20 15:14 Hydralazine Hcl 20 Mg/Ml Vial IVPUSH Q6H PRN SBP > 200 Hydralazine HCl 50 mg 06/02/20 09:45 06/03/20 08:56 Hydralazine Hcl 50 Mg Tablet PO 50 mg TID BROWN Administration Protocol Hydrochlorothiazide 25 mg 06/01/20 09:30 06/03/20 08:57 Hydrochlorothiazide 25 Mg Tablet PO 25 mg DAILY BROWN Administration Protocol Sodium Chloride 1,000 mls @ 100 mls/hr 06/03/20 11:30 Ns IVCONT .Q10H BROWN Lisinopril 40 mg 06/01/20 09:00 06/03/20 08:57 Lisinopril 40 Mg Tablet PO 40 mg DAILY BROWN Administration Protocol Nifedipine 60 mg 06/02/20 18:00 06/03/20 06:22 Nifedipine Er 60 Mg Tab.Er.24 PO 60 mg Q12H [facility] Administration Protocol Sodium Chloride 3 ml 06/01/20 03:05 06/03/20 08:58 0.9 % Sodium Chloride Flush 3 Ml Syringe IVFLUSH 3 ml QSHIFT [facility] Administration Time Spent With Patient Time: Total time spent is greater than 50% in coordination of care (as document ed) at patient's floor/unit and/or counseling patient: Time with patient: 15 - 24 minutes
[2020-06-03 12:11] LABS: MANUAL DIFF FLAG NO
[2020-06-03 12:14] LABS: Basophils Percent Auto 0.4 % (0-2); Eosinophils Absolute Auto 0.2 X10*3/uL (0.0-0.4); Eosinophils Percent Auto 2.6 % (0-4); Hematocrit 45.4 % (37-47); Hemoglobin 15.6 g/dl (12.0-16.0); Imm Gran Abs Auto 0.03 X10*3/uL (0.00-0.03); Imm Gran Pct Auto 0.4 % (0.0-0.4); Lymphocytes Absolute Auto 1.5 X10*3/uL (1.2-4.9); Lymphocytes Percent Auto 17.4 % (20-40); Mean Corpuscular HGB Conc 34.4 g/dl (31.0-35.0); Mean Corpuscular Hemoglobin 31.6 pg (27.0-33.0); Mean Corpuscular Volume 92.1 fL (80-98); Mean Platelet Volume 10.8 fL (9.4-12.3); Monocytes Absolute Auto 0.5 X10*3/uL (0.1-1.2); Monocytes Percent Auto 5.6 % (2-11); Neutrophils Absolute Auto 6.2 X10*3/uL (2.0-8.3); Neutrophils Percent Auto 73.6 % (45-73); Platelet Count 166 X10*3/uL (160-400); Red Blood Count 4.93 X10*6/uL (4.20-5.50); Red Cell Distribution Width 12.8 % (11.0-16.0); White Blood Count 8.4 X10*3/uL (4.8-10.8)
[2020-06-03 12:24] LABS: INTERNATIONAL NORM RATIO 0.9 (0.9-1.1)
[2020-06-03 12:26] LABS: Partial Thromboplastin Time 39.6 SEC (24.1-38.0)
[2020-06-03 12:43] LABS: Anion Gap 15 (12-20); Carbon Dioxide 26 mmol/L (22-29); Chloride 98 mmol/L (96-108); Creatinine Clr Calc Pharmacy 28.5; Estimated Glomerular Filt Rate 36; Glucose Random 156 mg/dL (60-115); Potassium 3.7 mmol/l (3.3-5.1); Sodium 135 mmol/L (135-145)
--- NOTE | 2020-06-03 12:52 | CONS_ITS ---
DATE OF SERVICE: 06/03/2020 REASON FOR CONSULTATION: Renal artery stenosis. HISTORY OF PRESENT ILLNESS: 74-year-old female with a known history of renal artery stenosis, presented with shortness of breath on 05/31/2020 and she had otherwise no other acute distress. She was subsequently admitted for hypertensive crisis due to her blood pressure being 222/105 on arrival. She now presents to us for vascular evaluation. PAST MEDICAL HISTORY: Significant for hypertension, diabetes, coronary artery disease, diastolic heart failure, and renal artery stenosis. PAST SURGICAL HISTORY: Includes CABG. MEDICATIONS: Medication list was reviewed by david [place]. SOCIAL HISTORY: She is currently an active smoker, nondrinker. FAMILY HISTORY: No history of advanced coronary artery disease or peripheral vascular disease. REVIEW OF SYSTEMS: 13-point review was performed. At the current time, denies any headache, dizziness, nausea, vomiting, diarrhea, or shortness of breath. At the time of my exam, she was resting comfortably in bed in usual spirits. PHYSICAL EXAMINATION: GENERAL: Afebrile. VITAL SIGNS: Stable with current blood pressure being 123/60 with a pulse of 77, saturating 97%. HEAD AND NECK: Demonstrates no bruits. CHEST: Moving air bilaterally. CARDIAC: Positive S1 and S2. ABDOMEN: Soft. EXTREMITIES: Upper extremities have good radial and ulnar pulses. Lower extremities are warm with good capillary refill. She does have palpable bilateral femoral pulses. NEUROLOGIC: II through XII grossly intact. PSYCH: Mood and affect appear within normal limits. STUDIES: I have reports and images from a prior ultrasound, which demonstrated renal artery stenosis, this was on March 12, 2020. When I had seen her on her last hospital admission, there was concern of left renal artery increased velocity to suggest greater than 60% stenosis. Right side was not well visualized. IMPRESSION: Renal artery stenosis. She is unstable hypertensive on greater than 3 hypertensive medications. I did have an extensive discussion with the hospitalist team and the Nephrology team, which believes that this renal artery stent may be helpful. The patient was initially hesitant to do this, but upon discussion with the peanut butter maker and myself, she did agree, then she would stay an additional day to get this done. I will schedule her for tomorrow. Thank you for allowing us to assist in her care. If there are any questions or concerns, please do not hesitate to contact us. MD MILEY Granda/BETTINA / [phone]
[2020-06-03 12:56] LABS: Blood Urea Nitrogen 25 mg/dL (9-16); Calcium 8.7 mg/dL (8.4-10.2)
[2020-06-03] MEDS: 0.9 % Sodium Chloride 1,000 ML 100 ML IVCONT ×2 (13:03→23:25)
[2020-06-03 16:14] LABS: Glucose, Whole Blood 117 mg/dL (60-115)
[2020-06-03] MEDS: Atorvastatin Calcium 20 MG TABLET PO (20:46)
[2020-06-03 20:58] LABS: Glucose, Whole Blood 118 mg/dL (60-115)
[2020-06-03] MEDS: Acetaminophen 325 MG TABLET 650 MG PO (21:25)
[2020-06-04] VITALS (18 sets, daily range): BP systolic 135–176; BP diastolic 58–79; PULSE 58–110; RESP 16–18; TEMP 36.1–36.6; O2SAT 95–98
[2020-06-04] MEDS: NIFEdipine ER 60 MG TAB.ER.24 PO ×2 (05:52→18:26)
[2020-06-04 07:49] LABS: Glucose, Whole Blood 126 mg/dL (60-115)
[2020-06-04] MEDS: lisinopriL 40 MG TABLET PO (08:33)
[2020-06-04] MEDS: hydrALAZINE HCl 50 MG TABLET PO ×3 (08:33→21:04)
[2020-06-04] MEDS: hydroCHLOROthiazide 25 MG TABLET PO (08:33)
[2020-06-04] MEDS: 0.9 % Sodium Chloride 1,000 ML 100 ML IVCONT ×2 (08:34→18:26)
--- NOTE | 2020-06-04 10:16 | P.PNIM_ITS ---
Subjective Subjective Date of Service: 06/04/20 Interval History: Seem in f/u for Accelarated HTN/WENDY No complaint, BP is good this morning. Review of Systems General - no fevers or chills Cardiovascular - no chest pain Respiratory - no shortness of breath or cough Abdominal- no abdominal pain, nausea, vomiting, diarrhea Neuro - no PINEDA Physical Exam Vital Signs: Vital Signs: Last Vital Signs Temp 97.5 F 06/04/20 07:44 Pulse 73 06/04/20 08:33 Resp 18 06/04/20 07:44 BP 142/67 H 06/04/20 08:33 Pulse Ox 97 06/04/20 07:44 Body Mass Index 22.4 General - no acute distress, appears comfortable Cardiovascular - regular rate and rhythm, S1-S2 Lungs - normal respiratory effort, clear to auscultation bilaterally, no wheezing Abdomen - soft, nontender, no rebound regarding Extremities - no edema bilaterally Neuro - awake and alert, no focal deficits Objective Data Current Medications Generic Name Dose Route Start Last Admin Trade Name Freq PRN Reason Stop Dose Admin Acetaminophen 650 mg 06/03/20 20:54 06/03/20 21:25 Acetaminophen 325 Mg Tablet PO 650 mg Q6H PRN Administration Pain and Fever Aspirin 81 mg 06/01/20 09:00 06/04/20 08:35 Aspirin 81 Mg Tab.Chew PO Not Given DAILY BROWN Atorvastatin Calcium 20 mg 06/01/20 21:00 06/03/20 20:46 Atorvastatin Calcium 20 Mg Tablet PO 20 mg BEDTIME [facility] Administration Hydralazine HCl 20 mg 06/01/20 15:14 Hydralazine Hcl 20 Mg/Ml Vial IVPUSH Q6H PRN SBP > 200 Hydralazine HCl 50 mg 06/02/20 09:45 06/04/20 08:33 Hydralazine Hcl 50 Mg Tablet PO 50 mg TID BROWN Administration Protocol Hydrochlorothiazide 25 mg 06/01/20 09:30 06/04/20 08:33 Hydrochlorothiazide 25 Mg Tablet PO 25 mg DAILY BROWN Administration Protocol Sodium Chloride 1,000 mls @ 100 mls/hr 06/03/20 11:30 06/04/20 08:34 Ns IVCONT 100 mls/hr .Q10H [facility] Administration Lisinopril 40 mg 06/01/20 09:00 06/04/20 08:33 Lisinopril 40 Mg Tablet PO 40 mg DAILY BROWN Administration Protocol Nifedipine 60 mg 06/02/20 18:00 06/04/20 05:52 Nifedipine Er 60 Mg Tab.Er.24 PO 60 mg Q12H [facility] Administration Protocol Sodium Chloride 3 ml 06/01/20 03:05 06/04/20 08:34 0.9 % Sodium Chloride Flush 3 Ml Syringe IVFLUSH Not Given QSHIFT [facility] Labs CBC & Chem 7: 06/03/20 04:07 06/03/20 11:53 Assessment and Plan (1) HTN (hypertension): Status: Acute Assessment and Plan: 74 yo F known to me from her last admission in Apr 2020 who is again admitted for uncontrolled BP 1. Uncontrolled HTN, due to WENDY Better on meds Nifedipine 60mg bid, lisinopril 40mg daily, hydralaine 50mg tid, hctz 25mg. Holding Metoprolol d/t kamari Will have stent today 2. CAD - s/p cabg asa and statin BB if HR allows 3. DM metformin has been on hold use ISS DM diet + POC QIDAC Full Code DVT pptx, heparin
--- NOTE | 2020-06-04 12:30 | PM.PNNEP ---
Subjective Subjective Interval history: Seem in f/u for Accelarated HTN/WENDY No complaint, BP is good this morning She wants to go home today Review of Systems General - no fevers or chills Cardiovascular - no chest pain Respiratory - no shortness of breath or cough Abdominal- no abdominal pain, nausea, vomiting, diarrhea Neuro - no PINEDA Physical Exam Vital Signs: Vital Signs: Last Vital Signs Temp 97.0 F 06/04/20 11:26 Pulse 75 06/04/20 11:26 Resp 18 06/04/20 11:26 BP 151/61 H 06/04/20 11:26 Pulse Ox 97 06/04/20 11:26 Body Mass Index 22.4 Appearance: Alert. Oriented X3. No acute distress. Eyes: Pupils equal, round and reactive to light. has some nystagmus horizontal both left to right with finger tracing, no other abnormalities noted ENT: Pharynx normal. Neck: Normal inspection. Neck supple. CVS: Normal heart rate and rhythm. Pulses normal. Respiratory: No respiratory distress. Breath sounds normal. Abdomen: Soft and nontender. Skin: Skin warm and dry. Normal skin color. Normal skin turgor. Extremities: No lower extremity edema. No calf ttp Neuro: Oriented X 3. No motor deficit. No sensory deficit. slight RUE pronator drift Const: General: cooperative, comfortable and no acute distress Orientation/consciousness: patient oriented x3 HENMT: Head: Yes normal to inspection Eyes: General: appearance normal, both eyes and all related structures Neck: Neck: Yes normal visual inspection Chest: Chest palpation & inspection: normal inspection of the chest Resp: Effort & Inspection: normal respiratory effort Cardio: Jugular venous distension: no JVD Rate: regular rate Rhythm: regular rhythm Heart sounds: S1 normal heart sound present and S2 normal heart sound present GI: Inspection: Yes normal to inspection Skin: General skin exam: no rashes or lesions noted Neuro: General: patient oriented x3 Extrem: General: Yes normal to inspection Psych: Appearance: grossly normal Assessment & Plan Assessment and plan (1) Renal artery stenosis: Status: Acute (2) Hypertensive crisis: Status: Acute (3) Diabetic neuropathy, type II diabetes mellitus: Status: Acute (4) Fall: Status: Acute Assessment and Plan: 1. Severe HTN: BP much better controlled; w/u c/w WENDY based on prior w/u and needs vasc intervention 2. DM 3. Unsteady gait 4. CKD 3 REC:proceed with PTRA today jeramy Sarmiento cont BP meds as noted procardia 60 bid; llisinoptril 40 qd; HCTZ 25 qd;lopressor 50 bid; hydralazine 50 po tid Time Spent With Patient Time: Total time spent is greater than 50% in coordination of care (as documented) at patient's floor/unit and/or counseling patient:
[2020-06-04] MEDS: Lidocaine HCl 1 % MPF 5 ML VIAL 10 ML SUBCUT (14:41)
[2020-06-04] MEDS: iohexoL 300 MG/ML 100 ML INFUS..BTL 130 ML IV (14:43)
[2020-06-04] MEDS: Heparin Sodium,Porcine 1,000 UNIT/ML VIAL 1000 UNIT IV (14:45)
--- NOTE | 2020-06-04 14:46 | PM.EVENT ---
Event Note Event Note: Status post angiogram. No significant renal artery stenosis appreciated. Stable for discharge tomorrow
[2020-06-04 17:12] LABS: Glucose, Whole Blood 193 mg/dL (60-115)
--- NOTE | 2020-06-04 18:54 | OP_ITS ---
SURGEON: Arnold Sarmiento MD INDICATIONS: Ilir is a 74-year-old female with a history of uncontrolled hypertension. Upon prior ultrasound, she was noted to have renal artery stenosis. She now presents for endovascular intervention. Risks, benefits, and complications were discussed in detail with the patient. She understood and consented. PREOPERATIVE DIAGNOSIS: POSTOPERATIVE DIAGNOSIS: PROCEDURE PERFORMED: ESTIMATED BLOOD LOSS: Minimal. COMPLICATIONS: ANESTHESIA: Local with moderate conscious sedation for a total of 82 minutes performed by il. ASSISTANTS: SPECIMENS: None. PREPROCEDURE DIAGNOSIS: Renal artery stenosis. POSTPROCEDURE DIAGNOSIS: Renal artery stenosis. PROCEDURES PERFORMED: 1. Ultrasound-guided right common femoral artery ultrasound. 2. Aortogram. 3. Selective right renal cannulation. 4. Selective left renal artery cannulation. DESCRIPTION OF PROCEDURE: The patient was brought to the angiography suite, prior to which timeout was called for patient identification and site verification. Bilateral groins were prepped and draped in standard surgical fashion. Under ultrasound guidance, right common femoral was accessed with micropuncture needle, wire, subsequently 4-[place] sheath. Flush catheter was brought up to the level of the renals. Aortogram was undertaken with power injection. Once this was done, we selectively cannulated the left renal artery, which demonstrated no significant stenosis. Right side was concerning. We took multiple orthogonal views and were able to note that there was no significant stenosis. At this point, the procedure was terminated. Catheter, wire, and sheath were removed. Direct pressure was held for 10 minutes. The patient tolerated the procedure well, returned to Recovery with stable vitals. INTERPRETATION OF FILMS: 1. Aortogram demonstrated normal-caliber aorta, significant calcific disease. Bilateral iliacs were normal. Right common femoral had significant disease and she had a diseased SFA. 2. Left renal artery completely patent and no stenosis noted. There was only one noted. 3. Right renal artery was also patent with no stenosis calcific origin, but there was no stenosis noted. Of note, we were able to visualize SMA and celiac axis as well, which were patent with no stenosis noted as well. CONCLUSION: 1. Successful diagnostic angiogram. 2. No significant renal artery disease noted. We will continue with medical management. DRAINS: None. MD MILEY Granda/BETTINA / [phone]
[2020-06-04 20:59] LABS: Glucose, Whole Blood 165 mg/dL (60-115)
[2020-06-04] MEDS: Atorvastatin Calcium 20 MG TABLET PO (21:04)
--- NOTE | 2020-06-04 21:15 | PC.NURSE ---
hematoma to the right groin outlined with the skin marker 5 cm diameter from the incision No bleeding from the right groin incision site. The right groin and the right upper thigh is soft.Pt denied pain to the incision site. Dr Sarmiento was notified regarding hematoma. Per MD : will continue to monitor
[2020-06-05 00:07] VITALS: BP 171/70; PULSE 105; RESP 18; TEMP 37.1; O2SAT 96
[2020-06-05 03:24] VITALS: BP 151/67; PULSE 98; RESP 18; TEMP 36.9; O2SAT 97
[2020-06-05] MEDS: 0.9 % Sodium Chloride 1,000 ML 100 ML IVCONT ×2 (04:15→04:18)
[2020-06-05 06:23] VITALS: BP 178/77; PULSE 90
[2020-06-05] MEDS: NIFEdipine ER 60 MG TAB.ER.24 PO (06:23)
[2020-06-05 07:45] VITALS: PULSE 94; RESP 20; TEMP 36.6; O2SAT 95
[2020-06-05 07:51] LABS: Glucose, Whole Blood 109 mg/dL (60-115)
[2020-06-05 09:08] VITALS: BP 178/77; PULSE 94
[2020-06-05] MEDS: hydroCHLOROthiazide 25 MG TABLET PO (09:08)
[2020-06-05] MEDS: Aspirin 81 MG TAB.CHEW PO (09:08)
[2020-06-05] MEDS: lisinopriL 40 MG TABLET PO (09:08)
[2020-06-05] MEDS: hydrALAZINE HCl 50 MG TABLET PO (09:08)
[2020-06-05] MEDS: 0.9 % Sodium Chloride Flush 3 ML SYRINGE IVFLUSH (09:10)
[2020-06-05 09:29] LABS: Anion Gap 14 (12-20); Blood Urea Nitrogen 17 mg/dL (9-16); Calcium 8.5 mg/dL (8.4-10.2); Carbon Dioxide 21 mmol/L (22-29); Chloride 102 mmol/L (96-108); Creatinine Clr Calc Pharmacy 25.8; Estimated Glomerular Filt Rate 32; Glucose Random 136 mg/dL (60-115); Potassium 4.1 mmol/l (3.3-5.1); Sodium 133 mmol/L (135-145)
--- NOTE | 2020-06-05 09:33 | HO.VASCPN ---
Subjective Subjective Patient reports: no new complaints Interval history: Patient is postop day 1 status post diagnostic angiogram. Developed a right groin hematoma overnight. Otherwise feels well. No pain in the lower extremities either. Now for postprocedure follow-up. Physical Exam Vital Signs: Vital Signs: Last Vital Signs Temp 97.8 F 06/05/20 07:45 Pulse 94 06/05/20 09:08 Resp 20 06/05/20 07:45 BP 178/77 H 06/05/20 09:08 Pulse Ox 95 06/05/20 07:45 Body Mass Index 22.4 Const: General: cooperative, healthy appearing and no acute distress Orientation/consciousness: oriented to person, oriented to place and oriented to time HENMT: Head: Yes normal to inspection Neck: Carotids: no bruits Chest: Chest palpation & inspection: normal inspection of the chest Resp: Effort & Inspection: normal respiratory effort and able to speak in complete sentences Auscultation: clear to auscultation bilaterally Cardio: Rate: regular rate Heart sounds: S1 normal heart sound present and S2 normal heart sound present GI: Inspection: Yes normal to inspection Skin: General skin exam: no rashes or lesions noted and other (Right groin hematoma palpable femoral pulses) Wounds: no wounds Neuro: General: oriented to person, oriented to place, oriented to time and CN's II-XI intact bilaterally Extrem: General: Yes normal to inspection, Yes full ROM and Yes no clubbing, cyanosis or edema Psych: Appearance: grossly normal and well kempt Speech and movement: Normal speech and movement present Affect: normal affect Progress Note: A&P Assessment and plan (1) Renal artery stenosis: Status: Acute Assessment and Plan: Patient is status post diagnostic angiogram. No significant renal artery stenosis noted in the right and left renal artery. Multiple orthogonal views were undertaken. Patient is stable from my perspective for discharge. In addition she should follow up with me as an outpatient as severe peripheral vascular disease was noted on the diagnostic angiogram. I left my business card with her as well. Thank you for allowing me to assist in her care. Fall Risk Details Current Medications: Current Medications Generic Name Dose Route Start Last Admin Trade Name Freq PRN Reason Stop Dose Admin Acetaminophen 650 mg 06/03/20 20:54 06/03/20 21:25 Acetaminophen 325 Mg Tablet PO 650 mg Q6H PRN Administration Pain and Fever Aspirin 81 mg 06/01/20 09:00 06/05/20 09:08 Aspirin 81 Mg Tab.Chew PO 81 mg DAILY BROWN Administration Atorvastatin Calcium 20 mg 06/01/20 21:00 06/04/20 21:04 Atorvastatin Calcium 20 Mg Tablet PO 20 mg BEDTIME BROWN Administration Hydralazine HCl 20 mg 06/01/20 15:14 Hydralazine Hcl 20 Mg/Ml Vial IVPUSH Q6H PRN SBP > 200 Hydralazine HCl 50 mg 06/02/20 09:45 06/05/20 09:08 Hydralazine Hcl 50 Mg Tablet PO 50 mg TID BROWN Administration Protocol Hydrochlorothiazide 25 mg 06/01/20 09:30 06/05/20 09:08 Hydrochlorothiazide 25 Mg Tablet PO 25 mg DAILY BROWN Administration Protocol Sodium Chloride 1,000 mls @ 100 mls/hr 06/03/20 11:30 06/05/20 04:15 Ns IVCONT 100 mls/hr .Q10H BROWN Administration Sodium Chloride 1,000 mls @ 100 mls/hr 06/04/20 14:15 06/05/20 04:18 Ns IVCONT 100 mls/hr .Q10H BROWN Administration Lisinopril 40 mg 06/01/20 09:00 06/05/20 09:08 Lisinopril 40 Mg Tablet PO 40 mg DAILY BROWN Administration Protocol Nifedipine 60 mg 06/02/20 18:00 06/05/20 06:23 Nifedipine Er 60 Mg Tab.Er.24 PO 60 mg Q12H BROWN Administration Protocol Sodium Chloride 3 ml 06/01/20 03:05 06/05/20 09:10 0.9 % Sodium Chloride Flush 3 Ml Syringe IVFLUSH 3 ml QSHIFT BROWN Administration Time Spent With Patient Time: Total time spent is greater than 50% in coordination of care (as documented) at patient's floor/unit and/or counseling patient: Time with patient: 15 - 24 minutes
--- NOTE | 2020-06-05 11:17 | MHC.CM.PN ---
Per ROUNDS discussion, Patient will be medically cleared for dc to home today, no services. Last IMM addressed on 06/03/20.
--- NOTE | 2020-06-05 11:28 | PM.DS ---
DS: Providers Provider Date of admission: 06/03/20 14:30 Primary care physician: WALDEMAR Garcia Consults: 05/31/20 23:38 Consult to Vascular Surgery Routine Consulting Provider: [facility] Reason for consultation: renal artery stenosis Has provider been notified: No 06/01/20 03:05 Consult to Cardiology Routine Consulting Provider: [facility] Reason for consultation: hypertensive urgency Has provider been notified: No Consult to Nephrology Routine Consulting Provider: [facility] Reason for consultation: hypertensive urgency Has provider been notified: No DS: Diagnosis Discharge Diagnosis (1) Renal artery stenosis: Status: Acute DS: Medications Discharge Medications Home Medications: Home Medications Medication Instructions Recorded Confirmed aspirin 81 mg PO DAILY 04/30/20 05/31/20 metoprolol tartrate 50 mg PO BID 05/31/20 05/31/20 lorazepam [Ativan] 1 mg PO BEDTIME PRN 06/01/20 06/01/20 Previous Rx's Medication Instructions Recorded lisinopril 40 mg tablet 40 mg PO DAILY #90 tab 05/29/20 hydralazine 50 mg PO TID #90 tab 06/05/20 hydrochlorothiazide 25 mg PO DAILY #30 tab 06/05/20 nifedipine 60 mg PO Q12H #60 tab 06/05/20 DS: Summary Hospital Course Hospital Course: history of presenting illness 74 y/o female with significant PMHX of Renal artery stenosis who presented to the ED s/p fall. Per history provided by the patient for the past 2 weeks has been having on and off LE weakness where she feels like her legs gives out on her . Today while walking outside out of the suddent lost the strenght in both of her extremities and fell on the floor. Denies hitting her her or LOC. On presentation to the ED was found to have elevated BP 222/105 with HR of 48. Patient was given multiple IV medications for BP control. BP now 175/80 mmHg. Lisinopril once dose to be given now. troponin of 25.1 x 1. Patient denies any chest pain, SOB, nausea, vomiting, diarrhea, fever or any sick contacts. CT head showed no evidence of any acute intracranial pathology. CTA head/neck positive for incidental thyroid nodule in the right. Patient was last time admitted with hypertensive crisis 1 month ago and was to follow up with vascular surgery as outpatient. Decision for admission given. Patient seen and examined at the bedside, laying down in bed in no acute distress. ROS as above otherwise negative. Physical exam unremarkable. No evidence of any LE weakness on exam or sensory deficits. PMHx: HTN, diabetes, CAD status post CABG, preserved EF Diastolic heart failure (EF of 60-65% on previous echo), Bilateral Renal artery stenosis hospital course Uncontrolled HTN, patient blood pressure improved but remain elevated, patient seen by vascular surgery underwent angiogram that showed no significant renal artery stenosis, patient creatinine bumped likely due to renal arteriogram, creatinine 1.58 today, case discussed with Nephrology they recommend to discharge patient home on current medications including Nifedipine 60mg bid, lisinopril 40mg daily, hydralaine 50mg tid, hctz 25mg. and metoprolol , since patient is eager to be discharged,will repeat labs in 2 days recommend close outpatient follow-up with Dr. Farley and primary care physician for continued blood pressure monitoring. 2. CAD - s/p cabg will continue asa , beta ana maría and added statin 3. DM, held metformin due to rising creatinine strongly recommend to follow diabetic diet and resume metformin when renal function improves. Time Spent with Patient Time attestation: Total time spent providing and/or coordinating discharge services: Physical Exam Vital Signs: Vital Signs: Last Vital Signs Temp 97.8 F 06/05/20 07:45 Pulse 94 06/05/20 09:08 Resp 20 06/05/20 07:45 BP 178/77 H 06/05/20 09:08 Pulse Ox 95 06/05/20 07:45 Body Mass Index 22.4 General - no acute distress, appears comfortable Cardiovascular - regular rate and rhythm, S1-S2 Lungs - normal respiratory effort, clear to auscultate Abdomen - soft, nontender, bowel sounds audible,no rebound Extremities - no edema bilaterally Neuro - awake and alert, no focal deficits DS: Data Data Completed and Pending Labs on day of discharge: 05/31/20 14:57 CT head/brain wo con Stat 05/31/20 14:58 ECG 12 lead EKG Stat EKG Documentation DIRECTED 05/31/20 15:14 Complete Blood Count Auto Diff Stat Troponin-I High Sensitivity Stat 05/31/20 15:53 hydrALAZINE HCl [Apresoline] 10 mg IVPUSH ONCE ONE 05/31/20 16:06 CT angio head neck Stat 05/31/20 16:49 hydrALAZINE HCl [Apresoline] 10 mg IVPUSH ONCE ONE 05/31/20 17:37 Partial Thromboplastin Time Stat Prothrombin Time INR Stat 05/31/20 17:50 Basic Metabolic Panel Stat Liver Panel Stat Magnesium Stat 05/31/20 19:48 iohexoL 350 MG/ML [Omnipaque 350 MG/ML] 100 ml IV ONCE ONE 05/31/20 20:08 Labetalol HCL [Normodyne] 20 mg IVPUSH ONCE ONE 05/31/20 22:33 lisinopriL [Zestril] 40 mg PO ONCE ONE 05/31/20 23:18 Transfer Order Routine 05/31/20 23:55 SARS COV2 PCR INHOUSE Stat Troponin-I High Sensitivity Stat 06/01/20 03:23 Labetalol HCL [Normodyne] 10 mg IVPUSH ONCE ONE 06/01/20 04:49 Nitroglycerin 2 % Oint [Nitro-Bid] 1 inch TRANSDERMA ONCE ONE 06/01/20 04:50 hydrALAZINE HCl [Apresoline] 10 mg IVPUSH ONCE ONE 06/01/20 06:00 Heparin Sodium,Porcine 5,000 unit SUBCUT Q8H 06/01/20 06:11 NIFEdipine ER [Procardia XL] 60 mg PO ONCE ONE hydrALAZINE HCl [Apresoline] 20 mg IVPUSH Q6H PRN 06/01/20 06:32 Basic Metabolic Panel Routine Complete Blood Count Auto Diff Routine 06/01/20 07:13 Glucose, Whole Blood Routine 06/01/20 07:21 ECG 12 lead EKG Routine 06/01/20 07:30 Insulin Lispro [Humalog] See Protocol SUBCUT QIDACHS 06/01/20 09:00 Furosemide [Lasix] 20 mg PO DAILY Metoprolol Tartrate [Lopressor] 50 mg PO BID 06/01/20 Breakfast Diabetic Diet 06/01/20 11:04 Glucose, Whole Blood Routine 06/01/20 16:07 Glucose, Whole Blood Routine 06/01/20 21:00 Glucose, Whole Blood Routine 06/02/20 06:00 NIFEdipine ER [Procardia XL] 60 mg PO DAILY 06/02/20 11:12 Glucose, Whole Blood Routine 06/02/20 16:27 Glucose, Whole Blood Routine 06/02/20 20:47 Glucose, Whole Blood Routine 06/03/20 04:07 Complete Blood Count Auto Diff Routine 06/03/20 07:03 Glucose, Whole Blood Routine 06/03/20 07:22 EKG Documentation DIRECTED 06/03/20 11:01 Glucose, Whole Blood Routine 06/03/20 11:21 Vital Signs PROTOCOL 06/03/20 11:53 Basic Metabolic Panel Routine Partial Thromboplastin Time Routine Prothrombin Time INR Routine 06/03/20 Lunch Diabetic Diet 06/03/20 16:07 Glucose, Whole Blood Routine 06/03/20 20:51 Glucose, Whole Blood Routine 06/04/20 07:46 Glucose, Whole Blood Routine 06/04/20 11:44 Heparin Sodium (Porcine)/NS/PF 2,000 unit in 1,000 ml IV As directed Lidocaine HCl 1 % MPF [Xylocaine 1 % MPF] 5 ml .ROUTE .STK-MED ONE iohexoL 300 MG/ML [Omnipaque 300 MG/ML] 100 ml IV .STK-MED ONE iohexoL 300 MG/ML [Omnipaque 300 MG/ML] 50 ml IV .STK-MED ONE 06/04/20 11:46 Heparin Sodium,Porcine 10,000 unit IVPUSH .STK-MED ONE Midazolam HCl/PF [Versed] 2 mg IVPUSH .STK-MED ONE Naloxone HCl [Narcan] 0.4 mg .ROUTE .STK-MED ONE fentaNYL citrate/PF [Sublimaze] 50 mcg .ROUTE .STK-MED ONE flumazeniL [Romazicon] 0.05 mg .ROUTE .STK-MED ONE 06/04/20 12:17 iohexoL 300 MG/ML [Omnipaque 300 MG/ML] 100 ml IV .STK-MED ONE 06/04/20 14:16 Transfer Order Routine 06/04/20 14:40 Lidocaine HCl 1 % MPF [Xylocaine 1 % MPF] 10 ml SUBCUT ONCE ONE 06/04/20 14:41 iohexoL 300 MG/ML [Omnipaque 300 MG/ML] 130 ml IV ONCE ONE 06/04/20 14:43 Heparin Sodium,Porcine 1,000 unit IV ONCE ONE 06/04/20 Lunch Regular Diet 06/04/20 17:07 Glucose, Whole Blood Routine 06/04/20 20:51 Glucose, Whole Blood Routine 06/05/20 07:48 Glucose, Whole Blood Routine 06/05/20 08:28 Basic Metabolic Panel Routine Laboratory Last Values WBC 8.4 X10*3/uL (4.8-10.8) 06/03/20 04:07 RBC 4.93 X10*6/uL (4.20-5.50) 06/03/20 04:07 Hgb 15.6 g/dl (12.0-16.0) 06/03/20 04:07 Hct 45.4 % (37-47) 06/03/20 04:07 MCV 92.1 fL (80-98) 06/03/20 04:07 MCH 31.6 pg (27.0-33.0) 06/03/20 04:07 MCHC 34.4 g/dl (31.0-35.0) 06/03/20 04:07 RDW 12.8 % (11.0-16.0) 06/03/20 04:07 Plt Count 166 X10*3/uL (160-400) 06/03/20 04:07 MPV 10.8 fL (9.4-12.3) 06/03/20 04:07 Immature Gran % (Auto) 0.4 % (0.0-0.4) 06/03/20 04:07 Neut % (Auto) 73.6 % (45-73) H 06/03/20 04:07 Lymph % (Auto) 17.4 % (20-40) L 06/03/20 04:07 [place] % (Auto) 5.6 % (2-11) 06/03/20 04:07 Eos % (Auto) 2.6 % (0-4) 06/03/20 04:07 Baso % (Auto) 0.4 % (0-2) 06/03/20 04:07 Lymph # (Auto) 1.5 X10*3/uL (1.2-4.9) 06/03/20 04:07 [place] # (Auto) 0.5 X10*3/uL (0.1-1.2) 06/03/20 04:07 Eos # (Auto) 0.2 X10*3/uL (0.0-0.4) 06/03/20 04:07 Baso # (Auto) 0.0 X10*3/uL (0.0-0.2) 06/03/20 04:07 Abs Immat Gran (auto) 0.03 X10*3/uL (0.00-0.03) 06/03/20 04:07 Absolute Neuts (auto) 6.2 X10*3/uL (2.0-8.3) 06/03/20 04:07 Absolute Nucleated RBC 0.000 X10*3/uL (0.0-0.012) 06/03/20 04:07 Nucleated RBC % (auto) 0.0 /100WBC (0.0-0.2) 06/03/20 04:07 PT 11.0 SEC (10.8-13.0) 06/03/20 11:53 INR 0.9 (0.9-1.1) 06/03/20 11:53 APTT 39.6 SEC (24.1-38.0) H 06/03/20 11:53 Sodium 133 mmol/L (135-145) L 06/05/20 08:28 Potassium 4.1 mmol/l (3.3-5.1) 06/05/20 08:28 Chloride 102 mmol/L (96-108) 06/05/20 08:28 Carbon Dioxide 21 mmol/L (22-29) L 06/05/20 08:28 Anion Gap 14 (12-20) 06/05/20 08:28 BUN 17 mg/dL (9-16) H 06/05/20 08:28 Creatinine 1.58 mg/dL (0.5-1.4) H 06/05/20 08:28 Estim Creat Clear Calc 25.8 06/05/20 08:28 Estimated GFR 32 06/05/20 08:28 POC Glucose 109 mg/dL (60-115) 06/05/20 07:48 Random Glucose 136 mg/dL (60-115) H 06/05/20 08:28 Calcium 8.5 mg/dL (8.4-10.2) 06/05/20 08:28 Magnesium 1.7 mg/dL (1.6-2.6) 05/31/20 17:50 Total Bilirubin 0.5 mg/dL (0.0-1.0) 05/31/20 17:50 Direct Bilirubin 0.3 mg/dL (0.0-0.5) 05/31/20 17:50 AST 16 U/L (5-31) 05/31/20 17:50 ALT 12 U/L (0-31) 05/31/20 17:50 Alkaline Phosphatase 86 U/L (39-117) 05/31/20 17:50 Troponin I High Sens 25.4 ng/L (<3.5-17.0) H 05/31/20 23:55 Total Protein 6.1 g/dL (6.5-8.0) L 05/31/20 17:50 Albumin 3.7 g/dL (3.5-5.0) 05/31/20 17:50 Urine Color YELLOW 05/31/20 17:15 Urine Appearance CLEAR 05/31/20 17:15 Urine pH 6.0 (5.0-8.0) 05/31/20 17:15 Ur Specific [place] 1.025 (1.005-1.025) 05/31/20 17:15 Urine Protein 1+ MG/DL (NEG-TRACE) H 05/31/20 17:15 Urine Glucose (UA) NEG MG/DL (NEG) 05/31/20 17:15 Urine Ketones NEG MG/DL (NEG) 05/31/20 17:15 Urine Blood NEG (NEG) 05/31/20 17:15 Urine Nitrite NEG (NEG) 05/31/20 17:15 Ur Leukocyte Esterase NEG (NEG) 05/31/20 17:15 Urine RBC 0 /HPF (0) 05/31/20 17:15 Urine WBC 1-4 /HPF (0-4) 05/31/20 17:15 Ur Squamous Epith Cells 1+ /LPF 05/31/20 17:15 Urine Bacteria TRACE /LPF 05/31/20 17:15 Coronavirus (PCR) NEGATIVE (Negative) 05/31/20 23:55 Discharge Plan Discharge Patient Disposition: Home, Self-Care Referrals: Jerry Hart, [employer] [Primary Care Provider] - Discharge Medications: New nifedipine 60 mg Tablet Extended Release 24hr 60 mg PO Q12H Qty: 60 RF: 0 hydralazine 50 mg Tablet 50 mg PO TID Qty: 90 RF: 0 hydrochlorothiazide 25 mg Tablet 25 mg PO DAILY Qty: 30 RF: 0 Continued lisinopril 40 mg tablet 40 mg PO DAILY Qty: 90 RF: 0 aspirin 81 mg Tablet 81 mg PO DAILY RF: 0 metoprolol tartrate 50 mg tablet 50 mg PO BID RF: 0 lorazepam [Ativan] 1 mg Tablet 1 mg PO BEDTIME PRN (Reason: Anxiety) RF: 0 Discontinued metformin 500 mg tablet 500 mg PO BID RF: 0 hydralazine 50 mg Tablet 50 mg PO BID RF: 0 Discharge Orders: Discharge Order (Routine); Ordered 06/05/20 Ordered By: Louie Foster Diet: diabetic diet Activity on Discharge: As tolerated Other Ambulatory Orders: Basic Metabolic Panel Fasting (Routine) Timeframe: 2 Days Facility: [facility] - Location: Laboratory Ordered By: Louie Foster Visit Report Forms: Patient Portal Discharge page Care Plan Goals: check labs in 2 days as ordered Health Concerns: take all medications as prescribed Plan of Treatment: close outpatient follow-up with Dr. Farley and primary care physician
[2020-06-05 11:40] LABS: Glucose, Whole Blood 131 mg/dL (60-115)
[2020-06-05 12:00] VITALS: BP 140/78; PULSE 110; RESP 20; O2SAT 98
== END 2020-06-05 13:43 | disposition home or self-care (01) | DRG 305 ==
LOC: HO.ED 22:25 → HO.IMC 06-01 01:25
PROVIDERS: Emergency Medicine; Family Medicine; Internal Medicine; Surgery Vascular Surgery; Admitting Provider Internal Medicine; Emergency Provider Internal Medicine; PCP Nurse Practitioner Family; Visit Provider Hospitalist
PROC: B4081ZZ Plain Radiography of Bilateral Renal Arteries using Low Osmolar Contrast (ICD-10-PCS; principal; 2020-06-04 12:00)
DX: I16.9 Hypertensive crisis, unspecified (principal); E11.42 Type 2 diabetes mellitus with diabetic polyneuropathy; Z20.828 Contact with and (suspected) exposure to other viral communicable diseases; I25.10 Atherosclerotic heart disease of native coronary artery without angina pectoris; Z95.1 Presence of aortocoronary bypass graft; F17.210 Nicotine dependence, cigarettes, uncomplicated; Z71.6 Tobacco abuse counseling; I12.9 Hypertensive chronic kidney disease with stage 1 through stage 4 chronic kidney disease, or unspecified chronic kidney disease; N18.30 Chronic kidney disease, stage 3 unspecified; E11.22 Type 2 diabetes mellitus with diabetic chronic kidney disease; Z79.82 Long term (current) use of aspirin; Z79.899 Other long term (current) drug therapy
CPT/HCPCS: 36252; 36415; 70450; 70496; 70498; 75630; 76942; 80048; 80076; 81001; 82947; 83735; 84484; 85025; 85610; 85730; 93005; 96374; 96375; 96376; 99152; 99153; 99219; 99284; 99285; C1760; C1769; C1887; Q9967; U0003

== ENCOUNTER 2020-07-14 16:53 | Inpatient (IN) | payer MEDICARE, SELFPAY ==
[2020-07-14] VITALS (9 sets, daily range): BP systolic 112–209; BP diastolic 50–111; PULSE 39–101; RESP 14–26; TEMP 36.6–36.9; O2SAT 96–98; BMI 23.0
--- NOTE | 2020-07-14 | ECG_ITS ---
Test Reason : AFIB Blood Pressure : / mmHG Vent. Rate : 104 BPM Atrial Rate : 104 BPM P-R Int : 144 ms QRS Dur : 128 ms QT Int : 396 ms P-R-T Axes : 081 -28 060 degrees QTc Int : 520 ms Sinus tachycardia with Premature atrial complexes Right bundle branch block Abnormal ECG When compared with ECG of 01-JUN-2020 22:29, Premature atrial complexes are now Present Vent. rate has increased BY 62 BPM Non-specific change in ST segment in Inferior leads T wave inversion no longer evident in Inferior leads T wave inversion no longer evident in Lateral leads QT has lengthened Referred By: Generic ED Physician Electronically Signed By:FABIEN BLOOM MD
--- NOTE | 2020-07-14 17:19 | CT_ITS ---
EXAMINATION: CT HEAD WITHOUT CONTRAST CLINICAL INFORMATION: Headache COMPARISON: 05/31/2020 TECHNIQUE: Contiguous axial imaging was performed from the skull base to vertex without intravenous administration of contrast. This CT examination was performed using dose optimization techniques as appropriate, variously including the following: *Automated exposure control *Adjustment of mA and/or kV according to patient size (this includes techniques or standardized protocols for targeted exams where dose is matched to indication/reason for exam; i.e. extremities or head) *Use of iterative reconstruction technique DLP: 649 mGy-cm FINDINGS: There is no evidence of acute intracranial hemorrhage or territorial infarction. No abnormal mass effect or midline shift is seen. Rios to white matter differentiation is well preserved. No extra-axial fluid collections are identified. The ventricles are normal in size. Patchy subcortical and periventricular white matter low-attenuation changes redemonstrated. Lacunar infarct redemonstrated within the left lentiform nucleus and right parietal subcortical white matter. The osseous structures and soft tissues are normal. The mastoid air cells and visualized portions of the paranasal sinuses are well aerated. CT/CT head/brain wo con IMPRESSION: No acute intracranial pathology. Moderate chronic white matter small vessel ischemic changes.
--- NOTE | 2020-07-14 17:23 | ED.RECABL ---
HPI - Recheck/Abnormal Lab/Rx General Chief Complaint: Recheck/Abnormal Lab/Rx Stated Complaint: htn Time Seen by Provider: 07/14/20 17:08 Source: patient Mode of arrival: EMS Limitations: no limitations History of Present Illness HPI narrative: Patient presents to ED for elevated blood pressure. Patient states having slight headache for the past 3 days. Patient states checking blood pressure at home was elevated. Patient states she has been without her blood pressure meds for 3 days because they ran out. Patient denies any chest pain, shortness of breath, dizziness, slurred speech, loss of vision, weakness, or paralysis. Related Data Home Medications Medication Instructions Recorded Confirmed aspirin 81 mg PO DAILY 04/30/20 07/14/20 lorazepam [Ativan] 1 mg PO BEDTIME PRN 06/01/20 07/14/20 Previous Rx's Medication Instructions Recorded lisinopril 40 mg tablet 40 mg PO DAILY #90 tab 05/29/20 hydralazine 50 mg PO TID #90 tab 06/05/20 hydrochlorothiazide 25 mg PO DAILY #30 tab 06/05/20 Allergies Allergy/AdvReac Type Severity Reaction Status Date / Time No Known Allergies Allergy Verified 05/31/20 21:43 Review of Systems Review of Systems: Yes all other systems are reviewed and are negative Constitutional: Constitutional: Reports as per HPI, Reports no additional constitutional complaints and Reports headache(s) Eyes: Eyes: Reports as per HPI and Reports no additional eye complaints ENT: Reports system reviewed and no additional complaints, except as documented, Reports as per HPI and Reports headache(s) Cardiovascular: Cardiovascular: Reports as per HPI and Reports no additional cardiovascular complaints Respiratory: Respiratory: Reports as per HPI and Reports no additional respiratory complaints Gastrointestinal: Gastrointestinal: Reports as per HPI and Reports no additional gastrointestinal complaints Genitourinary: Genitourinary: Reports no additional female genitourinary complaints and Reports as per HPI Musculoskeletal: Musculoskeletal: Reports no additional musculoskeletal complaints and Reports as per HPI Neurologic: Reports system reviewed and no additional complaints, except as documented, Reports as per HPI and Reports headache(s) Psychiatric: Psychiatric: Reports no additional psychiatric complaints and Reports as per HPI PMFSH Past Medical History Medical History Diabetic neuropathy, type II diabetes mellitus Fall Flash pulmonary edema Heart attack Hypertension Renal artery stenosis Surgical History Aortocoronary bypass status Social History Social History Household Members: Children Housing: House Alcohol intake: never Smoking Status: Current every day smoker Tobacco Type: Cigarette Cigarettes Per Day: 6 Years Smoked: 60 Second Hand Smoke Exposure: No Use of substances other than those prescribed or required for medical reasons: No Advance Directives: No Advance Directives Information Provided: Yes Do you have thoughts of harming others: None Do you have a plan to hurt others: No Plan service: No Current occupational status: retired Physical Exam Vital Signs: Vital Signs: Last Vital Signs Temp 98.4 F 07/14/20 23:09 Pulse 77 07/14/20 23:09 Resp 18 07/14/20 23:09 BP 140/80 H 07/14/20 23:09 Pulse Ox 98 07/14/20 23:09 Body Mass Index 23.0 Const: General: cooperative, healthy appearing, comfortable, no acute distress, well developed, alert, awake and Physically active Orientation/consciousness: patient oriented x3 HENMT: Head: Yes normal to inspection, Yes No palpable skull fracture present, Yes normocephalic, Yes atraumatic, No abrasion, No Paige's sign, No contusion, No cranial bruits, No hematoma, No laceration, No occipital foramen tenderness, No palpable skull fracture, No raccoon eyes, No scalp tenderness, No Temporal artery tenderness present and No periorbital ecchymosis Eyes: General: appearance normal, both eyes and all related structures Neck: Other: Negative for carotid bruit on auscultation of neck Neck: Yes normal visual inspection, Yes full ROM, Yes no lymphadenopathy, Yes no meningeal signs, Yes trachea midline, Yes supple and No tender Chest: Chest palpation & inspection: normal inspection of the chest and normal palpation of entire chest wall Resp: Effort & Inspection: normal respiratory effort and able to speak in complete sentences Auscultation: clear to auscultation bilaterally Cardio: Jugular venous distension: no JVD Heart sounds: S1 normal heart sound present and S2 normal heart sound present GI: Inspection: Yes normal to inspection Palpation (GI): Soft to palpation, not firm, nontender, no guarding and not rigid : General: No CVA tenderness and Yes no CVA tenderness Back/Spine/Pelvis: Back: no CVA tenderness, No CVA tenderness and No back tenderness Skin: General skin exam: no rashes or lesions noted Neuro: Other: Negative for facial droop. Speech is normal. Negative pronator drift. All extremities motor and strength exam are equal and intact. General: patient oriented x3, gait normal, no meningeal signs and CN's II-XI intact bilaterally Cranial nerves: Yes CN's II-XII intact bilaterally Course Course Course Narrative: Patient will be evaluated to make sure she is not hypertensive emergency. Presently exam does not indicate stroke. Negative for any neuro deficit. Will do basic labs and start with clonidine. Patient will be sent for head CT make sure there is no stroke or bleed. Reevaluation(s) Reevaluation #1: Patient's blood pressure improved. Patient's initial troponin came back elevated. Patient's troponin usually positive. Patient chemistry shows a KI. Will give fluids and repeat chemistry also. Patient chart was reviewed and in May she had angiogram of her kidneys and they were negative for any renal artery stenosis on either kidney. Patient's elevated blood pressure most likely due to noncompliance. We will do repeat troponin. Patient given Tylenol for headache. CT scan negative for any stroke or bleed. Time: 19:32 Reevaluation #2: Patient's blood pressure improved with clonidine. After receiving IV fluids, patient's chemistry was repeated and shows patient is still in acute renal failure. Patient also had multiple episodes of sinus bradycardia. Patient was asymptomatic when the heart rate went down to 40/30s. Patient's heart rate did go down to the 30s and 40s for 3 seconds and then go back up normal to the 70s. Patient denies ever having chest pain, headache, dizziness. Patient to be admitted to the hospital for sinus bradycardia and acute renal failure. Case accepted by hospitalist, Dr. Jo Time: 22:12 MDM - Recheck/Abnormal Lab/Rx MDM Narrative Medical decision making narrative: Sinus bradycardia. Acute renal failure. Lab Data Result diagrams: 07/14/20 17:23 07/14/20 20:28 Labs: Lab Results 07/14/20 07/14/20 07/14/20 Range/Units 17:23 17:23 17:23 WBC 8.5 (4.8-10.8) X10*3/uL RBC 4.85 (4.20-5.50) X10*6/uL Hgb 15.3 (12.0-16.0) g/dl Hct 44.1 (37-47) % MCV 90.9 (80-98) fL MCH 31.5 (27.0-33.0) pg MCHC 34.7 (31.0-35.0) g/dl RDW 11.8 (11.0-16.0) % Plt Count 180 (160-400) X10*3/uL MPV 10.0 (9.4-12.3) fL Immature Gran % (Auto) 0.2 (0.0-0.4) % Neut % (Auto) 71.5 (45-73) % Lymph % (Auto) 20.0 (20-40) % [place] % (Auto) 4.7 (2-11) % Eos % (Auto) 3.1 (0-4) % Baso % (Auto) 0.5 (0-2) % Lymph # (Auto) 1.7 (1.2-4.9) X10*3/uL [place] # (Auto) 0.4 (0.1-1.2) X10*3/uL Eos # (Auto) 0.3 (0.0-0.4) X10*3/uL Baso # (Auto) 0.0 (0.0-0.2) X10*3/uL Abs Immat Gran (auto) 0.02 (0.00-0.03) X10*3/uL Absolute Neuts (auto) 6.1 (2.0-8.3) X10*3/uL Absolute Nucleated RBC 0.000 (0.0-0.012) X10*3/uL Nucleated RBC % (auto) 0.0 (0.0-0.2) /100WBC PT 10.7 L (10.8-13.0) SEC INR 0.9 (0.9-1.1) APTT 36.8 (24.1-38.0) SEC Sodium 141 (135-145) mmol/L Potassium 3.6 (3.3-5.1) mmol/l Chloride 100 (96-108) mmol/L Carbon Dioxide 27 (22-29) mmol/L Anion Gap 18 (12-20) BUN 33 H D (9-16) mg/dL Creatinine 2.19 H (0.5-1.4) mg/dL Estim Creat Clear Calc 18.6 Estimated GFR 22 Random Glucose 163 H (60-115) mg/dL Calcium 9.2 D (8.4-10.2) mg/dL Total Bilirubin 0.5 (0.0-1.0) mg/dL AST 18 (5-31) U/L ALT 13 (0-31) U/L Alkaline Phosphatase 117 D (39-117) U/L Troponin I High Sens (<3.5-17.0) ng/L Total Protein 7.2 (6.5-8.0) g/dL Albumin 4.4 (3.5-5.0) g/dL Coronavirus (PCR) (Negative) Influenza Type A (PCR) (Negative) Influenza Type B (PCR) (Negative) RSV RNA Qual (PCR) (Negative) 07/14/20 07/14/20 07/14/20 Range/Units 17:23 20:28 20:28 WBC (4.8-10.8) X10*3/uL RBC (4.20-5.50) X10*6/uL Hgb (12.0-16.0) g/dl Hct (37-47) % MCV (80-98) fL MCH (27.0-33.0) pg MCHC (31.0-35.0) g/dl RDW (11.0-16.0) % Plt Count (160-400) X10*3/uL MPV (9.4-12.3) fL Immature Gran % (Auto) (0.0-0.4) % Neut % (Auto) (45-73) % Lymph % (Auto) (20-40) % [place] % (Auto) (2-11) % Eos % (Auto) (0-4) % Baso % (Auto) (0-2) % Lymph # (Auto) (1.2-4.9) X10*3/uL [place] # (Auto) (0.1-1.2) X10*3/uL Eos # (Auto) (0.0-0.4) X10*3/uL Baso # (Auto) (0.0-0.2) X10*3/uL Abs Immat Gran (auto) (0.00-0.03) X10*3/uL Absolute Neuts (auto) (2.0-8.3) X10*3/uL Absolute Nucleated RBC (0.0-0.012) X10*3/uL Nucleated RBC % (auto) (0.0-0.2) /100WBC PT (10.8-13.0) SEC INR (0.9-1.1) APTT (24.1-38.0) SEC Sodium 141 (135-145) mmol/L Potassium 3.2 L (3.3-5.1) mmol/l Chloride 108 (96-108) mmol/L Carbon Dioxide 24 (22-29) mmol/L Anion Gap 12 (12-20) BUN 31 H (9-16) mg/dL Creatinine 1.83 H (0.5-1.4) mg/dL Estim Creat Clear Calc 22.3 Estimated GFR 27 Random Glucose 67 D (60-115) mg/dL Calcium 7.6 L D (8.4-10.2) mg/dL Total Bilirubin 0.4 (0.0-1.0) mg/dL AST 14 (5-31) U/L ALT 9 (0-31) U/L Alkaline Phosphatase 78 D (39-117) U/L Troponin I High Sens 47.0 H D 60.5 H (<3.5-17.0) ng/L Total Protein 5.1 L D (6.5-8.0) g/dL Albumin 3.2 L D (3.5-5.0) g/dL Coronavirus (PCR) (Negative) Influenza Type A (PCR) (Negative) Influenza Type B (PCR) (Negative) RSV RNA Qual (PCR) (Negative) 07/14/20 Range/Units 21:18 WBC (4.8-10.8) X10*3/uL RBC (4.20-5.50) X10*6/uL Hgb (12.0-16.0) g/dl Hct (37-47) % MCV (80-98) fL MCH (27.0-33.0) pg MCHC (31.0-35.0) g/dl RDW (11.0-16.0) % Plt Count (160-400) X10*3/uL MPV (9.4-12.3) fL Immature Gran % (Auto) (0.0-0.4) % Neut % (Auto) (45-73) % Lymph % (Auto) (20-40) % [place] % (Auto) (2-11) % Eos % (Auto) (0-4) % Baso % (Auto) (0-2) % Lymph # (Auto) (1.2-4.9) X10*3/uL [place] # (Auto) (0.1-1.2) X10*3/uL Eos # (Auto) (0.0-0.4) X10*3/uL Baso # (Auto) (0.0-0.2) X10*3/uL Abs Immat Gran (auto) (0.00-0.03) X10*3/uL Absolute Neuts (auto) (2.0-8.3) X10*3/uL Absolute Nucleated RBC (0.0-0.012) X10*3/uL Nucleated RBC % (auto) (0.0-0.2) /100WBC PT (10.8-13.0) SEC INR (0.9-1.1) APTT (24.1-38.0) SEC Sodium (135-145) mmol/L Potassium (3.3-5.1) mmol/l Chloride (96-108) mmol/L Carbon Dioxide (22-29) mmol/L Anion Gap (12-20) BUN (9-16) mg/dL Creatinine (0.5-1.4) mg/dL Estim Creat Clear Calc Estimated GFR Random Glucose (60-115) mg/dL Calcium (8.4-10.2) mg/dL Total Bilirubin (0.0-1.0) mg/dL AST (5-31) U/L ALT (0-31) U/L Alkaline Phosphatase (39-117) U/L Troponin I High Sens (<3.5-17.0) ng/L Total Protein (6.5-8.0) g/dL Albumin (3.5-5.0) g/dL Coronavirus (PCR) NEGATIVE (Negative) Influenza Type A (PCR) NEGATIVE (Negative) Influenza Type B (PCR) NEGATIVE (Negative) RSV RNA Qual (PCR) NEGATIVE (Negative) ECG Data Interpretation: EKG 1: Sinus tachycardia with premature atrial complexes. Right bundle branch block. Ventricular rate 104. Pr interval 144. QTC 520. Negative STEMI. EKG 2: Sinus bradycardia. Right bundle-branch block. Ventricular rate 38. SC interval 150. QTC 446. Discharge Plan Discharge Clinical Impression: Acute renal failure, Bradycardia, sinus Patient Disposition: Admitted As Inpatient Interventions: Admission Worksheet (ED) Last Done: 07/14/20 22:48 Discharge Date/Time: 07/14/20 22:51
[2020-07-14 17:29] LABS: Basophils Percent Auto 0.5 % (0-2); Eosinophils Absolute Auto 0.3 X10*3/uL (0.0-0.4); Eosinophils Percent Auto 3.1 % (0-4); Hematocrit 44.1 % (37-47); Hemoglobin 15.3 g/dl (12.0-16.0); Imm Gran Abs Auto 0.02 X10*3/uL (0.00-0.03); Imm Gran Pct Auto 0.2 % (0.0-0.4); Lymphocytes Absolute Auto 1.7 X10*3/uL (1.2-4.9); Mean Corpuscular HGB Conc 34.7 g/dl (31.0-35.0); Mean Corpuscular Hemoglobin 31.5 pg (27.0-33.0); Mean Corpuscular Volume 90.9 fL (80-98); Monocytes Absolute Auto 0.4 X10*3/uL (0.1-1.2); Monocytes Percent Auto 4.7 % (2-11); Neutrophils Absolute Auto 6.1 X10*3/uL (2.0-8.3); Neutrophils Percent Auto 71.5 % (45-73); Platelet Count 180 X10*3/uL (160-400); Red Blood Count 4.85 X10*6/uL (4.20-5.50); Red Cell Distribution Width 11.8 % (11.0-16.0); White Blood Count 8.5 X10*3/uL (4.8-10.8)
[2020-07-14 17:31] LABS: MANUAL DIFF FLAG NO
[2020-07-14 17:35] LABS: INTERNATIONAL NORM RATIO 0.9 (0.9-1.1); Prothrombin Time 10.7 SEC (10.8-13.0)
[2020-07-14 17:37] LABS: Partial Thromboplastin Time 36.8 SEC (24.1-38.0)
[2020-07-14] MEDS: cloNIDine HCL 0.2 MG TABLET PO (17:39)
--- NOTE | 2020-07-14 17:48 | PC.NURSE ---
ARRIVES VIA EMS FROM HOME WITH ELEVATED BP ACCOMPANIED BY HEADACHE. HEADACHE ONGOING FOR 3 DAYS, HAS ALSO NOT TAKEN ANY HTN MEDS LISINOPRIL, HCTZ, HYDRALAZINE FOR 3 DAYS. NEUROS INTACT, SPEAKING IN CLEAR FULL SENTENCES. RESP EVEN AND NONLABOURED. DENIES CHEST PAIN, NAUSEA, SOB. ARRIVES WITH #20 IN L HAND.ME
[2020-07-14 17:52] LABS: Alanine Aminotransferase 13 U/L (0-31); Albumin Level 4.4 g/dL (3.5-5.0); Alkaline Phosphatase 117 U/L (39-117); Anion Gap 18 (12-20); Aspartate Amino Transferase 18 U/L (5-31); Bilirubin Total 0.5 mg/dL (0.0-1.0); Blood Urea Nitrogen 33 mg/dL (9-16); Calcium 9.2 mg/dL (8.4-10.2); Carbon Dioxide 27 mmol/L (22-29); Chloride 100 mmol/L (96-108); Creatinine Clr Calc Pharmacy 18.6; Estimated Glomerular Filt Rate 22; Glucose Random 163 mg/dL (60-115); Potassium 3.6 mmol/l (3.3-5.1); Sodium 141 mmol/L (135-145); Total Protein 7.2 g/dL (6.5-8.0)
[2020-07-14] MEDS: Acetaminophen 325 MG TABLET 650 MG PO (18:34)
[2020-07-14] MEDS: 0.9 % Sodium Chloride 1,000 ML 999 ML IV (19:02)
[2020-07-14] MEDS: 0.9 % Sodium Chloride 500 ML IV (19:03)
--- NOTE | 2020-07-14 19:40 | PC.NURSE ---
pt entering sinus kamari on monitor, down to 40s while sleeping, easily roused but does remain bradycardic on monitor while awake as well. second ekg obtained, trop and chem7 due for redraw.
--- NOTE | 2020-07-14 19:56 | ECG_ITS ---
Test Reason : ISIDORO Blood Pressure : / mmHG Vent. Rate : 038 BPM Atrial Rate : 038 BPM P-R Int : 150 ms QRS Dur : 134 ms QT Int : 562 ms P-R-T Axes : 080 -21 000 degrees QTc Int : 446 ms Normal sinus rhythm with Premature atrial complexes in a pattern of bigeminy with block Right bundle branch block T wave abnormality, consider inferolateral ischemia Abnormal ECG When compared with ECG of 14-JUL-2020 17:11, Premature atrial complexes are no longer Present Vent. rate has decreased BY 66 BPM T wave inversion now evident in Inferior leads T wave inversion more evident in Anterolateral leads QT has shortened Referred By: Candido Ace Electronically Signed By:FABIEN BLOOM MD
[2020-07-14 20:59] LABS: Alanine Aminotransferase 9 U/L (0-31); Albumin Level 3.2 g/dL (3.5-5.0); Alkaline Phosphatase 78 U/L (39-117); Anion Gap 12 (12-20); Aspartate Amino Transferase 14 U/L (5-31); Bilirubin Total 0.4 mg/dL (0.0-1.0); Blood Urea Nitrogen 31 mg/dL (9-16); Calcium 7.6 mg/dL (8.4-10.2); Carbon Dioxide 24 mmol/L (22-29); Chloride 108 mmol/L (96-108); Creatinine Clr Calc Pharmacy 22.3; Estimated Glomerular Filt Rate 27; Glucose Random 67 mg/dL (60-115); Potassium 3.2 mmol/l (3.3-5.1); Sodium 141 mmol/L (135-145); Total Protein 5.1 g/dL (6.5-8.0)
[2020-07-14 21:20] LABS: Troponin-I High Sensitivity 60.5 ng/L (<3.5-17.0)
--- NOTE | 2020-07-14 21:23 | PC.NURSE ---
hospitalist in to see pt, plan for admit. at this time she is a&ox3, HR dropping down to mid 30s midconversation. denies dizziness. continues to deny any sob, chest pain. swabbed for covid. daughter Pia [phone], call made out to her for med rec completion and update as requested per pt.
--- NOTE | 2020-07-14 21:49 | PC.NURSE ---
med rec completed
[2020-07-14] MEDS: Potassium Chloride Packet 20 MEQ PACKET 40 MEQ PO (21:55)
[2020-07-14 22:01] LABS: Influenza A PCR NEGATIVE (Negative); Influenza B PCR NEGATIVE (Negative); Resp Syncy Virus RNA Qual PCR NEGATIVE (Negative); SARS COV2 PCR INHOUSE NEGATIVE (Negative)
--- NOTE | 2020-07-14 22:10 | PM.IMHP ---
History of Present Illness Date of Service: 07/14/20 Chief Complaint: Headache 74-year-old female with past medical history of hypertension, diabetes, coronary artery disease status post CABG, who presents to the hospital with complaints of headache for the past 3 days. Patient reports that she has not taken her blood pressure medications for 3 days due to her medications ending and not being able to get a script from her PCP. She reports that her headache usually occurs when her blood pressure is high but did not check her blood pressure at home. She denies any blurry vision or double vision, denies any chest pain, no shortness of breath, no cough, no sputum production, no abdominal pain nausea or vomiting, no diarrhea, no urinary symptoms and no lower extremity edema. She takes 3 medications for her blood pressure and does not remember the names. On arrival to the ED her blood pressure was found to be 209/110 patient received clonidine and her blood pressure improving to 127/54. Her heart rate also dropped to 39 while in the ED. Patient asymptomatic, denies any dizziness. No chest pain, no palpitations. Labs are significant for potassium of 3.2 BUN of 31, creatinine of 2.19 with a baseline around 1.1,. Denies any chest pain. No EKG changes. CT head showed no acute intracranial pathology, moderate chronic white matter small-vessel ischemic changes Past medical history: Hypertension, diabetes, CAD status post CABG in 1995 Surgical history: CABG Family history: Denies Social history: Comes from home, walks independently, smokes about 6 cigarettes a day, denies alcohol or illicit drugs Review of Systems Review of Systems: Yes all other systems are reviewed and are negative Constitutional: Constitutional: Reports headache(s) ENT: Reports headache(s) Neurologic: Reports system reviewed and no additional complaints, except as documented, Reports as per HPI and Reports headache(s) [facility] Medical History Diabetic neuropathy, type II diabetes mellitus Fall Flash pulmonary edema Heart attack Hypertension Renal artery stenosis Surgical History Aortocoronary bypass status Social History Household Members: Children Housing: House Alcohol intake: never Smoking Status: Never smoker Tobacco Type: Cigarette Cigarettes Per Day: 10 Years Smoked: 60 Second Hand Smoke Exposure: No Use of substances other than those prescribed or required for medical reasons: No Advance Directives: No Advance Directives Information Provided: Yes service: No Current occupational status: retired Meds Allergies Allergy/AdvReac Type Severity Reaction Status Date / Time No Known Allergies Allergy Verified 05/31/20 21:43 Home Medications Medication Instructions Recorded Confirmed Type aspirin 81 mg PO DAILY 04/30/20 07/14/20 History lorazepam [Ativan] 1 mg PO BEDTIME PRN 06/01/20 07/14/20 History Physical Exam Vital Signs and Narrative: Vital Signs: Last Vital Signs Temp 97.9 F 07/14/20 17:01 Pulse 39 L 07/14/20 21:03 Resp 18 07/14/20 21:03 BP 122/50 L 07/14/20 21:03 Pulse Ox 96 07/14/20 21:03 Body Mass Index 23.0 Const: General: cooperative and no acute distress Orientation/consciousness: patient oriented x3 Eyes: General: appearance normal, both eyes and all related structures Pupils: Equal, round and reactive pupils present Resp: Effort & Inspection: normal respiratory effort and able to speak in complete sentences Auscultation: clear to auscultation bilaterally Cardio: Rate: regular rate Rhythm: regular rhythm GI: Palpation (GI): Soft to palpation Auscultation: normal bowel sounds Skin: General skin exam: no rashes or lesions noted Neuro: General: patient oriented x3 Cranial nerves: Yes Equal, round and reactive pupils present Cognition (Neuro): normal cognition Extrem: General: Yes normal to inspection and Yes no pedal edema Results Labs CBC and Chem 7: 07/14/20 17:23 07/14/20 20:28 Labs: Laboratory Results - last 24 hr 07/14/20 07/14/20 07/14/20 17:23 17:23 17:23 MCV 90.9 MCH 31.5 MCHC 34.7 RDW 11.8 Plt Count 180 MPV 10.0 Immature Gran % (Auto) 0.2 Neut % (Auto) 71.5 Lymph % (Auto) 20.0 [place] % (Auto) 4.7 Eos % (Auto) 3.1 Baso % (Auto) 0.5 Lymph # (Auto) 1.7 [place] # (Auto) 0.4 Eos # (Auto) 0.3 Baso # (Auto) 0.0 Abs Immat Gran (auto) 0.02 Absolute Neuts (auto) 6.1 Absolute Nucleated RBC 0.000 Nucleated RBC % (auto) 0.0 PT 10.7 L INR 0.9 APTT 36.8 Anion Gap 18 Estim Creat Clear Calc 18.6 Estimated GFR 22 Random Glucose 163 H Calcium 9.2 D Total Bilirubin 0.5 AST 18 ALT 13 Alkaline Phosphatase 117 D Troponin I High Sens Total Protein 7.2 Albumin 4.4 Coronavirus (PCR) Influenza Type A (PCR) Influenza Type B (PCR) RSV RNA Qual (PCR) 07/14/20 07/14/20 07/14/20 17:23 20:28 20:28 MCV MCH MCHC RDW Plt Count MPV Immature Gran % (Auto) Neut % (Auto) Lymph % (Auto) [place] % (Auto) Eos % (Auto) Baso % (Auto) Lymph # (Auto) [place] # (Auto) Eos # (Auto) Baso # (Auto) Abs Immat Gran (auto) Absolute Neuts (auto) Absolute Nucleated RBC Nucleated RBC % (auto) PT INR APTT Anion Gap 12 Estim Creat Clear Calc 22.3 Estimated GFR 27 Random Glucose 67 D Calcium 7.6 L D Total Bilirubin 0.4 AST 14 ALT 9 Alkaline Phosphatase 78 D Troponin I High Sens 47.0 H D 60.5 H Total Protein 5.1 L D Albumin 3.2 L D Coronavirus (PCR) Influenza Type A (PCR) Influenza Type B (PCR) RSV RNA Qual (PCR) 07/14/20 21:18 MCV MCH MCHC RDW Plt Count MPV Immature Gran % (Auto) Neut % (Auto) Lymph % (Auto) [place] % (Auto) Eos % (Auto) Baso % (Auto) Lymph # (Auto) [place] # (Auto) Eos # (Auto) Baso # (Auto) Abs Immat Gran (auto) Absolute Neuts (auto) Absolute Nucleated RBC Nucleated RBC % (auto) PT INR APTT Anion Gap Estim Creat Clear Calc Estimated GFR Random Glucose Calcium Total Bilirubin AST ALT Alkaline Phosphatase Troponin I High Sens Total Protein Albumin Coronavirus (PCR) NEGATIVE Influenza Type A (PCR) NEGATIVE Influenza Type B (PCR) NEGATIVE RSV RNA Qual (PCR) NEGATIVE Imaging Radiologist's Impressions: Impressions Head CT 07/14/20 17:19 IMPRESSION: No acute intracranial pathology. Moderate chronic white matter small vessel ischemic changes. Assessment and Plan (1) Acute renal failure: Status: Acute (2) Bradycardia, sinus: Status: Acute (3) Diabetic neuropathy, type II diabetes mellitus: Status: Acute (4) Hypertensive emergency: Status: Acute 74-year-old female who presents to the hospital with headache found to be hypertensive after missing her meds for 3 days # hypertensive Crisis - has end organ damage, including elevated HsTrop and RENÉE - Due to medication non-compliance- reports meds ran out and was unable to get new scrip from drBrenda - also had a headache - Head CT negative - bP improved after receiving clonidine in ED Plan: - Resume home medications- lisinopril, HCTZ, and hydralazine - will need new scrip on discharge # Asymptomatic bradycardia - no AV blockage - Consult cardiology - admit to tele # Elevated troponin - Most likely type 2 in the setting oh hypertensive crisis - Denies chest pain, no acute ekg changes - Will trend x 1 # RENÉE - BL around 1.1 - Most likely 2/2 above - Had renal artery angiogram on previous admission which was negative - will start IV fluids - Follow BMP # DM - Diabetic ciet, LDSSI # CAD - Continue ASA DVT ppx: Lovenox
--- NOTE | 2020-07-14 22:45 | PC.NURSE ---
REPORT GIVEN TO [facility] RN, PT READY FOR TRANSPORT
[2020-07-14] MEDS: 0.9 % Sodium Chloride Flush 3 ML SYRINGE IVFLUSH (23:04)
[2020-07-14] MEDS: Lactated Ringers 1,000 ML 100 ML IVCONT (23:04)
[2020-07-14] MEDS: Enoxaparin Sodium 30 MG/0.3 ML SYRINGE SUBCUT (23:06)
[2020-07-14 23:49] LABS: Troponin-I High Sensitivity 54.6 ng/L (<3.5-17.0)
[2020-07-15] VITALS (12 sets, daily range): BP systolic 138–186; BP diastolic 65–98; PULSE 61–86; RESP 18–20; TEMP 35.7–36.8; O2SAT 97–100; BMI 24.2
--- NOTE | 2020-07-15 03:54 | PC.NURSE ---
When pt sleeping, hr 30-40s in and out of mobitz 2 on tele. When awake pt denies any cardiac symptoms, hr 60s sinus on tele. Dr Jo made aware. No new orders at this time.
[2020-07-15 05:10] LABS: MANUAL DIFF FLAG NO
[2020-07-15 05:11] LABS: Basophils Absolute Auto 0.1 X10*3/uL (0.0-0.2); Basophils Percent Auto 0.8 % (0-2); Eosinophils Absolute Auto 0.4 X10*3/uL (0.0-0.4); Eosinophils Percent Auto 5.5 % (0-4); Hematocrit 35.8 % (37-47); Hemoglobin 11.8 g/dl (12.0-16.0); Imm Gran Abs Auto 0.02 X10*3/uL (0.00-0.03); Imm Gran Pct Auto 0.3 % (0.0-0.4); Lymphocytes Percent Auto 31.5 % (20-40); Mean Corpuscular Hemoglobin 30.7 pg (27.0-33.0); Mean Corpuscular Volume 93.2 fL (80-98); Mean Platelet Volume 10.4 fL (9.4-12.3); Monocytes Absolute Auto 0.4 X10*3/uL (0.1-1.2); Monocytes Percent Auto 6.1 % (2-11); Neutrophils Absolute Auto 3.6 X10*3/uL (2.0-8.3); Neutrophils Percent Auto 55.8 % (45-73); Platelet Count 140 X10*3/uL (160-400); Red Blood Count 3.84 X10*6/uL (4.20-5.50); Red Cell Distribution Width 11.9 % (11.0-16.0); White Blood Count 6.4 X10*3/uL (4.8-10.8)
[2020-07-15 05:31] LABS: Anion Gap 14 (12-20); Blood Urea Nitrogen 30 mg/dL (9-16); Calcium 7.8 mg/dL (8.4-10.2); Carbon Dioxide 22 mmol/L (22-29); Chloride 106 mmol/L (96-108); Estimated Glomerular Filt Rate 27; Glucose Random 84 mg/dL (60-115); Potassium 3.8 mmol/l (3.3-5.1); Sodium 138 mmol/L (135-145)
[2020-07-15 08:07] LABS: Glucose, Whole Blood 81 mg/dL (60-115)
--- NOTE | 2020-07-15 08:41 | PM.CNCAR ---
History of Present Illness History of Present Illness Date of Service: 07/15/20 Requesting physician: Jennyfer Jo Consult reason: hypertension Chief complaint: hypertensive urgency, Russell, Bradycardia Narrative: Ilir is a 74-year-old woman with prior history of CAD status post coronary artery bypass grafting, single-vessel in 1995 in [place] for acute OR as per her. She cannot recall her symptoms at that time. She also has longstanding history of hypertension chronic kidney disease diabetes prior suspected history of renal artery stenosis causing hypertensive urgency, she had a renal angiogram last admission here which was not showing any renal artery stenosis. She was subsequently discharged home with multiple medications for hypertension. She ran out of these medicines about few days ago and was not able to take them and started having headaches. That is when she present to the emergency room. She was noted to have hypertensive urgency with slightly elevated creatinine compared to a baseline consistent with acute kidney injury. In the ED she was given clonidine and subsequently developed bradycardia. EKG is consistent with normal sinus rhythm with atrial bigeminy with blocked PACs. Overnight her heart rate is improved. Her blood pressure is better controlled but still elevated. Minimally elevated troponin consistent with myocardial injury, no ischemic symptoms. Review of Systems Constitutional: Constitutional: Denies anorexia, Denies body ache(s), Denies chills, Denies fever(s) and Reports headache(s) Eyes: Eyes: Reports no additional eye complaints ENT: Reports system reviewed and no additional complaints, except as documented and Reports headache(s) Cardiovascular: Cardiovascular: Denies chest pain, Denies rapid heart rate, Denies lightheadedness, Denies Loss of Consciousness, Denies dyspnea and Denies orthopnea Respiratory: Respiratory: Denies cough and Denies dyspnea Gastrointestinal: Gastrointestinal: Reports no additional gastrointestinal complaints Genitourinary: Genitourinary: Reports no additional female genitourinary complaints Musculoskeletal: Musculoskeletal: Reports no additional musculoskeletal complaints Neurologic: Reports system reviewed and no additional complaints, except as documented, Reports as per HPI and Reports headache(s) Psychiatric: Psychiatric: Reports no additional psychiatric complaints Endocrine: Endocrine: Reports no additional endocrine complaints [facility] Past Medical History Medical History Diabetic neuropathy, type II diabetes mellitus Fall Flash pulmonary edema Heart attack Hypertension Renal artery stenosis Surgical History Surgical History Aortocoronary bypass status Social History Social History Household Members: Children Housing: House Alcohol intake: never Smoking Status: Current every day smoker Tobacco Type: Cigarette Cigarettes Per Day: 6 Years Smoked: 60 Second Hand Smoke Exposure: No Use of substances other than those prescribed or required for medical reasons: No Advance Directives: No Advance Directives Information Provided: Yes Do you have thoughts of harming others: None Do you have a plan to hurt others: No Plan service: No Current occupational status: [employer] Allergies Allergy/AdvReac Type Severity Reaction Status Date / Time No Known Allergies Allergy Verified 05/31/20 21:43 Home Medications Medication Instructions Recorded Confirmed Type aspirin 81 mg PO DAILY 04/30/20 07/14/20 History lorazepam [Ativan] 1 mg PO BEDTIME PRN 06/01/20 07/14/20 History Physical Exam Vital Signs: Vital Signs: Last Vital Signs Temp 98.2 F 07/15/20 08:00 Pulse 66 07/15/20 08:00 Resp 18 07/15/20 08:00 BP 159/79 H 07/15/20 08:00 Pulse Ox 99 07/15/20 08:00 Body Mass Index 24.2 Const: General: comfortable, no acute distress, alert and awake Nutritional Appearance: average body habitus Orientation/consciousness: patient oriented x3 Limitations: other limitations (Currently in bed) HENMT: Head: Yes normocephalic and Yes atraumatic Face and sinus: Yes erythema Eyes: General: appearance normal, both eyes and all related structures Neck: Neck: Yes trachea midline, Yes supple and Yes no JVD Chest: Chest palpation & inspection: normal inspection of the chest and other (Well-healed sternotomy scar) Resp: Effort & Inspection: normal respiratory effort Auscultation: clear to auscultation bilaterally Cardio: Jugular venous distension: no JVD Palpation: normal PMI Rate: regular rate Rhythm: regular rhythm Heart sounds: S1 normal heart sound present, S2 normal heart sound present and Other heart sounds present (S4) GI: Auscultation: normal bowel sounds Neuro: General: patient oriented x3 and no focal motor deficits Extrem: General: Yes no clubbing, cyanosis or edema Psych: Appearance: grossly normal Affect: Irritable affect present Results Labs and Meds Result diagrams: 07/15/20 04:19 07/15/20 04:15 Lab results: Laboratory Results - last 24 hr 07/14/20 07/14/20 07/14/20 17:23 17:23 17:23 WBC 8.5 RBC 4.85 Hgb 15.3 Hct 44.1 MCV 90.9 MCH 31.5 MCHC 34.7 RDW 11.8 Plt Count 180 MPV 10.0 Immature Gran % (Auto) 0.2 Neut % (Auto) 71.5 Lymph % (Auto) 20.0 Nicollet % (Auto) 4.7 Eos % (Auto) 3.1 Baso % (Auto) 0.5 Lymph # (Auto) 1.7 Nicollet # (Auto) 0.4 Eos # (Auto) 0.3 Baso # (Auto) 0.0 Abs Immat Gran (auto) 0.02 Absolute Neuts (auto) 6.1 Absolute Nucleated RBC 0.000 Nucleated RBC % (auto) 0.0 PT 10.7 L INR 0.9 APTT 36.8 Sodium 141 Potassium 3.6 Chloride 100 Carbon Dioxide 27 Anion Gap 18 BUN 33 H D Creatinine 2.19 H Estim Creat Clear Calc 18.6 Estimated GFR 22 POC Glucose Random Glucose 163 H Calcium 9.2 D Total Bilirubin 0.5 AST 18 ALT 13 Alkaline Phosphatase 117 D Troponin I High Sens Total Protein 7.2 Albumin 4.4 Coronavirus (PCR) Influenza Type A (PCR) Influenza Type B (PCR) RSV RNA Qual (PCR) 07/14/20 07/14/20 07/14/20 17:23 20:28 20:28 WBC RBC Hgb Hct MCV MCH MCHC RDW Plt Count MPV Immature Gran % (Auto) Neut % (Auto) Lymph % (Auto) Nicollet % (Auto) Eos % (Auto) Baso % (Auto) Lymph # (Auto) Nicollet # (Auto) Eos # (Auto) Baso # (Auto) Abs Immat Gran (auto) Absolute Neuts (auto) Absolute Nucleated RBC Nucleated RBC % (auto) PT INR APTT Sodium 141 Potassium 3.2 L Chloride 108 Carbon Dioxide 24 Anion Gap 12 BUN 31 H Creatinine 1.83 H Estim Creat Clear Calc 22.3 Estimated GFR 27 POC Glucose Random Glucose 67 D Calcium 7.6 L D Total Bilirubin 0.4 AST 14 ALT 9 Alkaline Phosphatase 78 D Troponin I High Sens 47.0 H D 60.5 H Total Protein 5.1 L D Albumin 3.2 L D Coronavirus (PCR) Influenza Type A (PCR) Influenza Type B (PCR) RSV RNA Qual (PCR) 07/14/20 07/14/20 07/15/20 21:18 23:11 04:15 WBC RBC Hgb Hct MCV MCH MCHC RDW Plt Count MPV Immature Gran % (Auto) Neut % (Auto) Lymph % (Auto) Nicollet % (Auto) Eos % (Auto) Baso % (Auto) Lymph # (Auto) Nicollet # (Auto) Eos # (Auto) Baso # (Auto) Abs Immat Gran (auto) Absolute Neuts (auto) Absolute Nucleated RBC Nucleated RBC % (auto) PT INR APTT Sodium 138 Potassium 3.8 Chloride 106 Carbon Dioxide 22 Anion Gap 14 BUN 30 H Creatinine 1.85 H Estim Creat Clear Calc 22.0 Estimated GFR 27 POC Glucose Random Glucose 84 Calcium 7.8 L Total Bilirubin AST ALT Alkaline Phosphatase Troponin I High Sens 54.6 H Total Protein Albumin Coronavirus (PCR) NEGATIVE Influenza Type A (PCR) NEGATIVE Influenza Type B (PCR) NEGATIVE RSV RNA Qual (PCR) NEGATIVE 07/15/20 07/15/20 04:19 08:03 WBC 6.4 RBC 3.84 L D Hgb 11.8 L D Hct 35.8 L MCV 93.2 MCH 30.7 MCHC 33.0 RDW 11.9 Plt Count 140 L MPV 10.4 Immature Gran % (Auto) 0.3 Neut % (Auto) 55.8 Lymph % (Auto) 31.5 Nicollet % (Auto) 6.1 Eos % (Auto) 5.5 H Baso % (Auto) 0.8 Lymph # (Auto) 2.0 Nicollet # (Auto) 0.4 Eos # (Auto) 0.4 Baso # (Auto) 0.1 Abs Immat Gran (auto) 0.02 Absolute Neuts (auto) 3.6 Absolute Nucleated RBC 0.000 Nucleated RBC % (auto) 0.0 PT INR APTT Sodium Potassium Chloride Carbon Dioxide Anion Gap BUN Creatinine Estim Creat Clear Calc Estimated GFR POC Glucose 81 Random Glucose Calcium Total Bilirubin AST ALT Alkaline Phosphatase Troponin I High Sens Total Protein Albumin Coronavirus (PCR) Influenza Type A (PCR) Influenza Type B (PCR) RSV RNA Qual (PCR) EKG on presentation showed sinus tachycardia with PACs with right bundle-branch block, unchanged from before Subsequent EKG shows sinus rhythm with atrial bigeminy with blocked PACs. Assessment and Plan (1) Hypertensive emergency: Status: Acute Hypertensive urgency we likely due to noncompliance or non availability of medications. He is aware patient says she was not able to get a hold of her primary care physician was not able to get refill on medications. She understands importance of these medications. She has had multiple admissions in the past with similar reasons for lack of medications. Not sure if there is noncompliance. Case management should be involved to resolve this social issues and avoid repeated hospitalizations related to easily treatable condition as an outpatient. Discussed with her the need for better blood pressure control to prevent end-organ damage, she already has signs of myocardial injury as well as acute kidney injury which puts her at high risk for adverse cardiovascular outcomes in the future. She understands agrees. For now will resume hydralazine and nifedipine. If in the next 12 hours her heart rate remains stable, can resume metoprolol therapy. She was also started on hydrochlorothiazide therapy. Lisinopril is being held for her acute kidney injury as per the hospitalist team. (2) Myocardial injury: Status: Acute Myocardial injury without evidence of acute myocardial infarction. This is secondary to hypertensive urgency and subendocardial ischemia. Importance of better blood pressure control was discussed. Patient with elevated troponins have a poor prognosis as outpatient. Given her prior coronary disease, will pursue outpatient ischemic workup to evaluate for any significant myocardial ischemia that may affect her future prognosis. This was discussed with her. She should be on a high-intensity statin therapy given her vascular disease. Consider adding atorvastatin 40-80 mg daily to her regimen. Target goal LDL less than 70 mg/dL. Continue low-dose aspirin therapy. Aggressive blood pressure control as above should be pursued. (3) Acute renal failure: Status: Acute (4) Bradycardia: Status: Acute Bradycardia, transient. This was secondary to blocked PACs with AV conduction abnormality due to administration of clonidine. Avoid use of clonidine in future if of blood pressure control. Watch for 12 more hours. A for bradycardia is not recurrent can resume metoprolol later in the night. Probably discharge tomorrow. Will follow up as an outpatient. Thank you for inviting us in the consult of this patient.
[2020-07-15] MEDS: hydrALAZINE HCl 50 MG TABLET PO ×3 (08:43→22:18)
[2020-07-15] MEDS: hydroCHLOROthiazide 25 MG TABLET PO (08:43)
[2020-07-15] MEDS: 0.9 % Sodium Chloride Flush 3 ML SYRINGE IVFLUSH ×2 (08:43→15:45)
[2020-07-15] MEDS: Aspirin 81 MG TAB.CHEW PO (08:43)
--- NOTE | 2020-07-15 09:46 | MHC.CM.PN ---
MET WITH PT WHO IS INDEPEDENT CM INTERVENTIN IS NOT FELT INDICATED BY PT..PT HAS OWN TRANSPORT HOME
[2020-07-15 11:11] LABS: Glucose, Whole Blood 118 mg/dL (60-115)
--- NOTE | 2020-07-15 11:56 | HO.PM.IMPN ---
Subjective Subjective Date of Service: 07/15/20 Interval History: seen and examined this AM denies cp or pineda ROS General - no fevers or chills Cardiovascular - no chest pain Respiratory - no shortness of breath or cough Abdominal- no abdominal pain, nausea, vomiting, diarrhea Physical Exam Vital Signs: Vital Signs: Last Vital Signs Temp 96.2 F L 07/15/20 11:10 Pulse 64 07/15/20 11:10 Resp 18 07/15/20 11:10 BP 146/76 H 07/15/20 11:10 Pulse Ox 97 07/15/20 11:10 Body Mass Index 24.2 Const: Other: General - no acute distress, appears comfortable Cardiovascular - regular rate and rhythm, S1-S2 Lungs - normal respiratory effort, clear to auscultation bilaterally, no wheezing Abdomen - soft, nontender, no rebound or guarding Extremities - no edema bilaterally Neuro - awake and alert, no focal deficits Objective Data Current Medications Generic Name Dose Route Start Last Admin Trade Name Freq PRN Reason Stop Dose Admin Acetaminophen 650 mg 07/14/20 22:43 Acetaminophen 325 Mg Tablet PO Q6H PRN Pain, Mild (Pain Scale 1-3) Aspirin 81 mg 07/15/20 09:00 07/15/20 08:43 Aspirin 81 Mg Tab.Chew PO 81 mg DAILY [facility] Administration Docusate Sodium 100 mg 07/14/20 22:43 Docusate Sodium 100 Mg Capsule PO DAILY PRN Constipation Enoxaparin Sodium 30 mg 07/14/20 23:00 07/14/20 23:06 Enoxaparin Sodium 30 Mg/0.3 Ml Syringe SUBCUT 30 mg Q24H [facility] Administration Hydralazine HCl 50 mg 07/15/20 09:00 07/15/20 08:43 Hydralazine Hcl 50 Mg Tablet PO 50 mg TID [facility] Administration Protocol Hydrochlorothiazide 25 mg 07/15/20 09:00 07/15/20 08:43 Hydrochlorothiazide 25 Mg Tablet PO 25 mg DAILY [facility] Administration Protocol Insulin Human Lispro 0 unit 07/15/20 07:30 07/15/20 11:16 Insulin Lispro 100 Unit/Ml 3 Ml Vial SUBCUT Not Given QIDACHS [facility] Protocol Metoprolol Tartrate 50 mg 07/15/20 09:00 07/15/20 08:44 Metoprolol Tartrate 50 Mg Tablet PO Not Given BID [facility] Protocol Ondansetron HCl 4 mg 07/14/20 22:43 Ondansetron Hcl 4 Mg/2 Ml Vial IVPUSH Q8H PRN Nausea and Vomiting Sodium Chloride 3 ml 07/15/20 00:00 07/15/20 08:43 0.9 % Sodium Chloride Flush 3 Ml Syringe IVFLUSH 3 ml QSHIFT [facility] Administration Labs CBC & Chem 7: 07/15/20 04:19 07/15/20 04:15 Assessment and Plan (1) Uncontrolled hypertension: Status: Acute Assessment and Plan: This is a 74 yo F with a PMH of resistant HTN who presents to the hospital with compalints of PINEDA and was admitted for hypertensive urgency 1. HTN urgency due to non-compliance -- missing her meds for 3 days as she ran out. Reports she didnt f/u with PCP because she was unable to make appt. Restart her home meds (see d/c summar from 06/05) BP improved continue nifedipine, hctz, hydralazine, hold metoprolol for now due to bradycardia, hold lisinopril due to RENÉE 2. RENÉE on CKD stage 3 Baseline SCr 1.1 to 1.3 range. Last admission had a mild bump in SCr at the time of discharge and was to f/u with nephrology but unclear if she did. Now acutely worsened to 2.19 upon-- likely 2/2 to BP and non-compliance with meds hold lisinopril trend -- improved today will need outpatient nephrology f/u 3. Braydcardia now improving -- see cardiology note, if improved, restart metoprolol 4. CAD, elevated HS-trop I Trop flat, due to HTN outpatient w/u continue asa, statin 5. DM metformin discontinued last admission due to RENÉE sliding scale + diabetic diet check a1c 6. Non-compliance with outpatinet f/u CM as made appt for pcp f/u on Aug 01 @ 130 Full Code DVT pptx, subcut. heparin
[2020-07-15 12:44] LABS: Estimated Average Glucose 128 mg/dL; Hemoglobin A1c % 6.1 %
[2020-07-15] MEDS: NIFEdipine ER 60 MG TAB.ER.24 PO ×2 (13:27→22:19)
[2020-07-15 16:06] LABS: Glucose, Whole Blood 89 mg/dL (60-115)
[2020-07-15 20:25] LABS: Glucose, Whole Blood 107 mg/dL (60-115)
[2020-07-15] MEDS: Atorvastatin Calcium 20 MG TABLET PO (22:19)
[2020-07-15] MEDS: Heparin Sodium,Porcine 5,000 UNIT/ML VIAL 5000 UNIT SUBCUT (22:19)
[2020-07-16] MEDS: 0.9 % Sodium Chloride Flush 3 ML SYRINGE IVFLUSH ×2 (00:20→09:29)
[2020-07-16 04:00] VITALS: BP 142/67; PULSE 65; RESP 18; TEMP 36.6; O2SAT 97
[2020-07-16 05:33] VITALS: BMI 23.6
[2020-07-16 06:54] LABS: Anion Gap 13 (12-20); Blood Urea Nitrogen 25 mg/dL (9-16); Calcium 8.6 mg/dL (8.4-10.2); Carbon Dioxide 24 mmol/L (22-29); Chloride 104 mmol/L (96-108); Estimated Glomerular Filt Rate 31; Glucose Random 92 mg/dL (60-115); Sodium 137 mmol/L (135-145)
[2020-07-16 07:24] VITALS: BP 153/69; PULSE 64; RESP 18; TEMP 36.4; O2SAT 97
[2020-07-16 07:44] LABS: Glucose, Whole Blood 104 mg/dL (60-115)
[2020-07-16] MEDS: NIFEdipine ER 60 MG TAB.ER.24 PO (09:27)
[2020-07-16] MEDS: Heparin Sodium,Porcine 5,000 UNIT/ML VIAL 5000 UNIT SUBCUT (09:28)
[2020-07-16] MEDS: lisinopriL 40 MG TABLET PO (09:28)
[2020-07-16] MEDS: Aspirin 81 MG TAB.CHEW PO (09:28)
[2020-07-16] MEDS: hydrALAZINE HCl 50 MG TABLET PO (09:28)
[2020-07-16] MEDS: hydroCHLOROthiazide 25 MG TABLET PO (09:28)
--- NOTE | 2020-07-16 09:28 | MHC.CM.PN ---
PER REQUEST OF CARDILOGIST PT DOES NOT LIKE HER PCP AND WOULD LIKE TO CHANGE PCPS LIST GIVEN TO PT OF MD OPTIONS ALSO EXPLINED TO PT THAT SHE WOULD HAVE TO CALL HER INS TO LIST HER NEW PCP AND BECAUSE SHE WILL BE A NEW PT SHE WILL EMERALDEY NOT GET AN APPT TO [facility] OR [facility] PT VOICED UNDERSTANDING
--- NOTE | 2020-07-16 10:03 | PM.PNCARD ---
Subjective Subjective Date of Service: 07/16/20 Principal diagnosis: Hypertensive urgency, troponin elevation Interval history: Patient currently not having any chest pain. Denies any complaints. Walking around the room without any issues. Blood pressure is better control but not normalized. Renal function is improving. Review of Systems Constitutional: Reports no additional constitutional complaints Eyes: Reports no additional eye complaints Reports system reviewed and no additional complaints, except as documented Cardiovascular: Reports no additional cardiovascular complaints Respiratory: Reports no additional respiratory complaints Gastrointestinal: Reports no additional gastrointestinal complaints Genitourinary: Reports no additional female genitourinary complaints Reports system reviewed and no additional complaints, except as documented and Reports as per HPI Hematologic/Lymphatic: Reports no additional hematologic/lymphatic complaints Allergic/Immunologic: Reports no additional allergic/immunologic complaints Physical Exam Vital Signs: Last Vital Signs Temp 97.5 F 07/16/20 07:24 Pulse 64 07/16/20 07:24 Resp 18 07/16/20 07:24 BP 153/69 H 07/16/20 07:24 Pulse Ox 97 07/16/20 07:24 Body Mass Index 23.6 Const General: cooperative, comfortable, alert and awake Orientation/consciousness: patient oriented x3 Limitations: no limitations HENSC Head: Yes normocephalic and Yes atraumatic Eyes General: appearance normal, both eyes and all related structures Resp Effort & Inspection: normal respiratory effort Auscultation: clear to auscultation bilaterally Cardio Jugular venous distension: no JVD Palpation: normal PMI Rate: regular rate Rhythm: regular rhythm Heart sounds: S1 normal heart sound present and S2 normal heart sound present GI Auscultation: normal bowel sounds Skin General skin exam: no rashes or lesions noted and ecchymosis Neuro General: patient oriented x3 Extrem General: Yes no clubbing, cyanosis or edema Psych Appearance: grossly normal Affect: Indifferent affect present Results Labs and Meds Result diagrams: 07/15/20 04:19 07/16/20 05:35 Lab results: Laboratory Results - last 24 hr 07/15/20 07/15/20 07/15/20 05:18 11:05 15:55 Sodium Potassium Chloride Carbon Dioxide Anion Gap BUN Creatinine Estim Creat Clear Calc Estimated GFR POC Glucose 118 H 89 Random Glucose Estimat Average Glucose 128 Hemoglobin A1c % 6.1 Calcium 07/15/20 07/16/20 07/16/20 20:19 05:35 07:25 Sodium 137 Potassium 4.0 Chloride 104 Carbon Dioxide 24 Anion Gap 13 BUN 25 H Creatinine 1.63 H Estim Creat Clear Calc 25.0 Estimated GFR 31 POC Glucose 107 104 Random Glucose 92 Estimat Average Glucose Hemoglobin A1c % Calcium 8.6 D Progress Note: A&P Assessment and plan (1) Uncontrolled hypertension: Status: Acute Assessment and Plan: Uncontrolled hypertension and admission with hypertensive urgency leading to acute kidney injury as well as myocardial injury. This appears to be more likely related to patient noncompliance with followup as well as medication intake. Patient says that this is due to the system. Case Management involved to find a new primary care physician. Add lisinopril as renal function is improving. Continue other medications. Out patient follow-up and social interventions need to be pursued aggressively in this patient. (2) Myocardial injury: Status: Acute Assessment and Plan: Myocardial injury in setting of hypertensive urgency. This is not suggestive of acute myocardial infarction. However this increases the risk for future cardiovascular negative outcomes. She will require workup for ischemic heart disease as an outpatient. Will schedule for the same. (3) CAD (coronary artery disease): Status: Acute Assessment and Plan: Coronary artery disease with remote coronary artery bypass grafting in 1995 as per her. She said this was single-vessel coronary artery bypass grafting. Continue aggressive risk factor modification which includes aggressive blood pressure control as above. Low-dose aspirin therapy needs to be pursued. Also high-intensity statin therapy should be pursue with goal LDL less than 70 mg/dL. Will set up for outpatient followup and workup. Will sign of the case. Thank you for allowing us to partake in her care Fall Risk Details Current Medications: Current Medications Generic Name Dose Route Start Last Admin Trade Name Bertq PRN Reason Stop Dose Admin Acetaminophen 650 mg 07/14/20 22:43 Acetaminophen 325 Mg Tablet PO Q6H PRN Pain, Mild (Pain Scale 1-3) Aspirin 81 mg 07/15/20 09:00 07/16/20 09:28 Aspirin 81 Mg Tab.Chew PO 81 mg DAILY [facility] Administration Atorvastatin Calcium 20 mg 07/15/20 21:00 07/15/20 22:19 Atorvastatin Calcium 20 Mg Tablet PO 20 mg BEDTIME [facility] Administration Docusate Sodium 100 mg 07/14/20 22:43 Docusate Sodium 100 Mg Capsule PO DAILY PRN Constipation Heparin Sodium (Porcine) 5,000 unit 07/15/20 23:00 07/16/20 09:28 Heparin Sodium,Porcine 5,000 Unit/Ml Vial SUBCUT 5,000 unit Q12H [facility] Administration Hydralazine HCl 50 mg 07/15/20 09:00 07/16/20 09:28 Hydralazine Hcl 50 Mg Tablet PO 50 mg TID [facility] Administration Protocol Hydrochlorothiazide 25 mg 07/15/20 09:00 07/16/20 09:28 Hydrochlorothiazide 25 Mg Tablet PO 25 mg DAILY [facility] Administration Protocol Insulin Human Lispro 0 unit 07/15/20 07:30 07/16/20 09:28 Insulin Lispro 100 Unit/Ml 3 Ml Vial SUBCUT Not Given QIDACHS [facility] Protocol Lisinopril 40 mg 07/16/20 09:00 07/16/20 09:28 Lisinopril 40 Mg Tablet PO 40 mg DAILY [facility] Administration Protocol Lorazepam 1 mg 07/15/20 12:09 Lorazepam 1 Mg Tablet PO BEDTIME PRN Anxiety Nifedipine 60 mg 07/15/20 12:15 07/16/20 09:27 Nifedipine Er 60 Mg Tab.Er.24 PO 60 mg BID [facility] Administration Protocol Ondansetron HCl 4 mg 07/14/20 22:43 Ondansetron Hcl 4 Mg/2 Ml Vial IVPUSH Q8H PRN Nausea and Vomiting Sodium Chloride 3 ml 07/15/20 00:00 07/16/20 09:29 0.9 % Sodium Chloride Flush 3 Ml Syringe IVFLUSH 3 ml QSHIFT [facility] Administration Time Spent With Patient Time: Total time spent is greater than 50% in coordination of care (as documented) at patient's floor/unit and/or counseling patient: Time with patient: 25 - 35 minutes
[2020-07-16 11:38] LABS: Glucose, Whole Blood 184 mg/dL (60-115)
[2020-07-16] MEDS: Insulin Lispro 100 UNIT/ML 3 ML VIAL SUBCUT (11:55)
[2020-07-16 12:00] VITALS: RESP 18
--- NOTE | 2020-07-16 12:15 | MHC.CM.PN ---
pt darnell today will not have services as she is planning on changing pcps additionally contacted and left messAGE FOR DAUGHTER CICI [phone] TO BE SURE THAt pts meds are picked up
--- NOTE | 2020-07-16 12:19 | PM.DS ---
DS: Providers Provider Date of admission: 07/14/20 21:35 Primary care physician: TOÑO Garcia- Consults: 07/14/20 22:43 Consult to Cardiology Routine Consulting Provider: Ashok Hernandez Reason for consultation: bradycardia Has provider been notified: No DS: Diagnosis Discharge Diagnosis (1) Uncontrolled hypertension: Status: Acute (2) Myocardial injury: Status: Acute (3) CAD (coronary artery disease): Status: Acute (4) Bradycardia: Status: Acute (5) Hypertensive emergency: Status: Acute (6) Acute renal failure: Status: Acute DS: Medications Discharge Medications Home Medications: Home Medications Medication Instructions Recorded Confirmed aspirin 81 mg PO DAILY 04/30/20 07/14/20 lorazepam [Ativan] 1 mg PO BEDTIME PRN 06/01/20 07/14/20 Previous Rx's Medication Instructions Recorded aspirin 81 mg PO DAILY #30 tab 07/16/20 atorvastatin 1 tab PO BEDTIME #30 tab 07/16/20 hydralazine 50 mg PO TID #90 tab 07/16/20 hydrochlorothiazide 25 mg PO DAILY #30 tab 07/16/20 lisinopril 40 mg PO DAILY #90 tab 07/16/20 metoprolol tartrate 1 tab PO BID #60 tab 07/16/20 nifedipine 1 tab PO Q12H #60 tab 07/16/20 DS: Summary Hospital Course Hospital Course: Admission note HPI 74-year-old female with past medical history of hypertension, diabetes, coronary artery disease status post CABG, who presents to the hospital with complaints of headache for the past 3 days. Patient reports that she has not taken her blood pressure medications for 3 days due to her medications ending and not being able to get a script from her PCP. She reports that her headache usually occurs when her blood pressure is high but did not check her blood pressure at home. She denies any blurry vision or double vision, denies any chest pain, no shortness of breath, no cough, no sputum production, no abdominal pain nausea or vomiting, no diarrhea, no urinary symptoms and no lower extremity edema. She takes 3 medications for her blood pressure and does not remember the names. On arrival to the ED her blood pressure was found to be 209/110 patient received clonidine and her blood pressure improving to 127/54. Her heart rate also dropped to 39 while in the ED. Patient asymptomatic, denies any dizziness. No chest pain, no palpitations. Labs are significant for potassium of 3.2 BUN of 31, creatinine of 2.19 with a baseline around 1.1,. Denies any chest pain. No EKG changes. CT head showed no acute intracranial pathology, moderate chronic white matter small-vessel ischemic changes Hospital course The patient was admitted to the hospital for evaluation and treatment of hypertensive urgency. It was believed to be a result of not compliant with medication as she ran out of her pills according to her. She was admitted to the hospital and started on home medication of IV hydralazine as needed. His kidney function improved back to baseline. She was evaluated by Cardiology for troponin leak which trended flat with recommendation for strict control of her blood pressure. She was noted to have acute kidney injury on top of CKD with creatinine worsened from baseline 1 a by the almost 2.2 at time of presentation. She was started IV fluid with holding nephrotoxic medication getting good response. To be followed with repeat kidney function as outpatient. Scripts for her medications were sent to pharmacy to make sure she will have at home. Time Spent with Patient Time attestation: Total time spent providing and/or coordinating discharge services: Physical Exam Vital Signs: Vital Signs: Last Vital Signs Temp 97.5 F 07/16/20 07:24 Pulse 64 07/16/20 07:24 Resp 18 07/16/20 07:24 BP 153/69 H 07/16/20 07:24 Pulse Ox 97 07/16/20 07:24 Body Mass Index 23.6 Constitutional : Alert, oriented, not in distress Neck : Normal inspection, Supple Cardiovascular : RRR, S1 S2, no lower extremity edema Respiratory : Good bilateral air entry, no crackles, wheezes or rhonchi Gastrointestinal: soft, lax, Normal bowel sounds, Non tender Skin : Warm/Dry, No rash Neurological : Alert & oriented x3, No focal deficit DS: Data Data Completed and Pending Completed studies during hospitalization [Text1]: Procedures Plain Radiography of Bilateral Renal Arteries using Low Osmolar Contrast (06/03/20) Labs on day of discharge: 07/14/20 ECG 12 lead EKG Stat 07/14/20 17:06 EKG Documentation DIRECTED 07/14/20 17:19 CT head/brain wo con Stat 07/14/20 17:20 cloNIDine HCL [Catapres] 0.2 mg PO ONCE STA 12/20/20 17:23 Complete Blood Count Auto Diff Stat Comprehensive Met. Panel Stat Partial Thromboplastin Time Stat Prothrombin Time INR Stat Troponin-I High Sensitivity Stat 07/14/20 18:26 Acetaminophen [Tylenol] 650 mg PO ONCE STA 07/14/20 18:52 0.9 % Sodium Chloride [Ns] 1,000 ml IV 999 mls/hr 0.9 % Sodium Chloride [Ns] 500 ml IV 500 mls/hr 07/14/20 19:56 ECG 12 lead EKG Stat EKG Documentation DIRECTED 07/14/20 20:05 EKG Documentation DIRECTED 07/14/20 20:28 Comprehensive Met. Panel Stat Troponin-I High Sensitivity Stat 07/14/20 21:18 SARS-CoV2/FLU/RSV Stat 07/14/20 21:30 Transfer Order Routine 07/14/20 21:36 Potassium Chloride Packet [Klor-Con Packet] 40 meq PO ONCE ONE 07/14/20 22:43 Lactated Ringers [Lr] 1,000 ml IVCONT 100 mls/hr 07/14/20 22:43 Intake and Output Q4HR 07/14/20 23:00 Enoxaparin Sodium [Lovenox] 30 mg SUBCUT Q24H 07/14/20 23:11 Troponin-I High Sensitivity Stat 07/14/20 23:34 RT Smoking Initial Cessation ONCE 07/15/20 04:15 Basic Metabolic Panel Routine 07/15/20 04:19 Complete Blood Count Auto Diff Routine 07/15/20 05:18 Hemoglobin A1c Routine 07/15/20 08:03 Glucose, Whole Blood Routine 07/15/20 09:00 Metoprolol Tartrate [Lopressor] 50 mg PO BID 07/15/20 11:05 Glucose, Whole Blood Routine 07/15/20 12:31 Add Laboratory Test Routine 07/15/20 15:55 Glucose, Whole Blood Routine 07/15/20 20:19 Glucose, Whole Blood Routine 07/15/20 23:00 Heparin Sodium,Porcine 5,000 unit SUBCUT Q12H 07/16/20 05:35 Basic Metabolic Panel DAILY@0600 07/16/20 07:25 Glucose, Whole Blood Routine 07/16/20 09:00 Aspirin Enteric Coated [Ecotrin] 81 mg PO DAILY 07/16/20 11:22 Glucose, Whole Blood Routine Laboratory Last Values WBC 6.4 X10*3/uL (4.8-10.8) 07/15/20 04:19 RBC 3.84 X10*6/uL (4.20-5.50) L D 07/15/20 04:19 Hgb 11.8 g/dl (12.0-16.0) L D 07/15/20 04:19 Hct 35.8 % (37-47) L 07/15/20 04:19 MCV 93.2 fL (80-98) 07/15/20 04:19 MCH 30.7 pg (27.0-33.0) 07/15/20 04:19 MCHC 33.0 g/dl (31.0-35.0) 07/15/20 04:19 RDW 11.9 % (11.0-16.0) 07/15/20 04:19 Plt Count 140 X10*3/uL (160-400) L 07/15/20 04:19 MPV 10.4 fL (9.4-12.3) 07/15/20 04:19 Immature Gran % (Auto) 0.3 % (0.0-0.4) 07/15/20 04:19 Neut % (Auto) 55.8 % (45-73) 07/15/20 04:19 Lymph % (Auto) 31.5 % (20-40) 07/15/20 04:19 Alpine % (Auto) 6.1 % (2-11) 07/15/20 04:19 Eos % (Auto) 5.5 % (0-4) H 07/15/20 04:19 Baso % (Auto) 0.8 % (0-2) 07/15/20 04:19 Lymph # (Auto) 2.0 X10*3/uL (1.2-4.9) 07/15/20 04:19 Alpine # (Auto) 0.4 X10*3/uL (0.1-1.2) 07/15/20 04:19 Eos # (Auto) 0.4 X10*3/uL (0.0-0.4) 07/15/20 04:19 Baso # (Auto) 0.1 X10*3/uL (0.0-0.2) 07/15/20 04:19 Abs Immat Gran (auto) 0.02 X10*3/uL (0.00-0.03) 07/15/20 04:19 Absolute Neuts (auto) 3.6 X10*3/uL (2.0-8.3) 07/15/20 04:19 Absolute Nucleated RBC 0.000 X10*3/uL (0.0-0.012) 07/15/20 04:19 Nucleated RBC % (auto) 0.0 /100WBC (0.0-0.2) 07/15/20 04:19 PT 10.7 SEC (10.8-13.0) L 07/14/20 17:23 INR 0.9 (0.9-1.1) 07/14/20 17:23 APTT 36.8 SEC (24.1-38.0) 07/14/20 17:23 Sodium 137 mmol/L (135-145) 07/16/20 05:35 Potassium 4.0 mmol/l (3.3-5.1) 07/16/20 05:35 Chloride 104 mmol/L (96-108) 07/16/20 05:35 Carbon Dioxide 24 mmol/L (22-29) 07/16/20 05:35 Anion Gap 13 (-20) 07/16/20 05:35 BUN 25 mg/dL (9-16) H 07/16/20 05:35 Creatinine 1.63 mg/dL (0.5-1.4) H 07/16/20 05:35 Estim Creat Clear Calc 25.0 07/16/20 05:35 Estimated GFR 31 07/16/20 05:35 POC Glucose 184 mg/dL (60-115) H 07/16/20 11:22 Random Glucose 92 mg/dL (60-115) 07/16/20 05:35 Estimat Average Glucose 128 mg/dL 07/15/20 05:18 Hemoglobin A1c % 6.1 % 07/15/20 05:18 Calcium 8.6 mg/dL (8.4-10.2) D 07/16/20 05:35 Total Bilirubin 0.4 mg/dL (0.0-1.0) 07/14/20 20:28 AST 14 U/L (5-31) 07/14/20 20:28 ALT 9 U/L (0-31) 07/14/20 20:28 Alkaline Phosphatase 78 U/L (39-117) D 07/14/20 20:28 Troponin I High Sens 54.6 ng/L (<3.5-17.0) H 07/14/20 23:11 Total Protein 5.1 g/dL (6.5-8.0) L D 07/14/20 20:28 Albumin 3.2 g/dL (3.5-5.0) L D 07/14/20 20:28 Coronavirus (PCR) NEGATIVE (Negative) 07/14/20 21:18 Influenza Type A (PCR) NEGATIVE (Negative) 07/14/20 21:18 Influenza Type B (PCR) NEGATIVE (Negative) 07/14/20 21:18 RSV RNA Qual (PCR) NEGATIVE (Negative) 07/14/20 21:18 Discharge Plan Discharge Patient Disposition: Home, Self-Care Referrals: Jerry Hart FNP-BC [Primary Care Provider] - 1 Week (08/01/2020 1:30PM Please call and reschedule if you can't keep this appointment. ) Discharge Medications: New aspirin 81 mg Tablet,Chewable 81 mg PO DAILY Qty: 30 RF: 0 Continued aspirin 81 mg Tablet 81 mg PO DAILY RF: 0 lorazepam [Ativan] 1 mg Tablet 1 mg PO BEDTIME PRN (Reason: Anxiety) RF: 0 atorvastatin 20 mg tablet 1 tab PO BEDTIME Qty: 30 RF: 2 nifedipine 60 mg tablet extended release 24hr 1 tab PO Q12H Qty: 60 RF: 2 metoprolol tartrate 50 mg tablet 1 tab PO BID Qty: 60 RF: 2 hydralazine 50 mg Tablet 50 mg PO TID Qty: 90 RF: 2 hydrochlorothiazide 25 mg Tablet 25 mg PO DAILY Qty: 30 RF: 2 lisinopril 40 mg tablet 40 mg PO DAILY Qty: 90 RF: 2 Discharge Orders: Discharge Order (Routine); Ordered 07/16/20 Ordered By: Medina Sams Diet: advance to usual diet Activity on Discharge: As tolerated Visit Report Forms: Patient Portal Discharge page Care Plan Goals: Read below Health Concerns: Read below Plan of Treatment: You were admitted to the hospital for evaluation of significantly elevated blood pressure readings and worsening kidney function. You were found to be in hypertensive urgency as a result of not taking her medications. Your treated with IV and oral medications with good response and restarted on your home pills. You were evaluated by Cardiology who recommended strict control of your blood pressure at home. 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
== END 2020-07-16 14:14 | disposition home or self-care (01) | DRG 305 ==
LOC: HO.ED 22:14 → HO.IMC 22:22
PROVIDERS: Family Medicine; Physician Assistant; Admitting Provider Internal Medicine; Emergency Provider Emergency Medicine; PCP Nurse Practitioner Family; Visit Provider Student in an Organized Health Care Education/Training Program
DX: I16.1 Hypertensive emergency (principal); N17.9 Acute kidney failure, unspecified; I12.9 Hypertensive chronic kidney disease with stage 1 through stage 4 chronic kidney disease, or unspecified chronic kidney disease; E11.22 Type 2 diabetes mellitus with diabetic chronic kidney disease; N18.30 Chronic kidney disease, stage 3 unspecified; I25.10 Atherosclerotic heart disease of native coronary artery without angina pectoris; E11.42 Type 2 diabetes mellitus with diabetic polyneuropathy; R00.1 Bradycardia, unspecified; I25.2 Old myocardial infarction; I51.89 Other ill-defined heart diseases; F17.210 Nicotine dependence, cigarettes, uncomplicated; Z91.14 Patient's other noncompliance with medication regimen; Z71.6 Tobacco abuse counseling; Z95.1 Presence of aortocoronary bypass graft; Z20.828 Contact with and (suspected) exposure to other viral communicable diseases; Z79.82 Long term (current) use of aspirin; Z79.899 Other long term (current) drug therapy
CPT/HCPCS: 0241U; 36415; 70450; 80048; 80053; 82947; 83036; 84484; 85025; 85610; 85730; 93005; 96360; 99285; J1650

== ENCOUNTER → 2020-07-16 16:06 | Outpatient (REF) | payer MEDICARE, SELFPAY | LOC: HO.CARD 16:06 | PROVIDERS: Visit Provider Internal Medicine Cardiovascular Disease | DX: Z13.89 Encounter for screening for other disorder (principal) ==

== ENCOUNTER 2020-08-26 17:01 | Inpatient (IN) | payer MEDICARE, SELFPAY ==
[2020-08-26] VITALS (14 sets, daily range): BP systolic 171–269; BP diastolic 73–140; PULSE 73–110; RESP 17–24; TEMP 36.1–36.5; O2SAT 96–100; BMI 54.8
[2020-08-26 17:37] LABS: Glucose, Whole Blood 217 mg/dL (60-115)
--- NOTE | 2020-08-26 18:06 | ECG_ITS ---
Test Reason : HYPERTENSION Blood Pressure : / mmHG Vent. Rate : 090 BPM Atrial Rate : 090 BPM P-R Int : 150 ms QRS Dur : 128 ms QT Int : 404 ms P-R-T Axes : 077 -43 076 degrees QTc Int : 494 ms Normal sinus rhythm Left axis deviation Right bundle branch block Moderate voltage criteria for LVH, may be normal variant Abnormal ECG When compared with ECG of 14-JUL-2020 19:58, Blocked PACs are no longer present Referred By: Ramon Magana Electronically Signed By:FABIEN BLOOM MD
--- NOTE | 2020-08-26 18:16 | CT_ITS ---
EXAMINATION: CT HEAD WITHOUT CONTRAST CLINICAL INFORMATION: Trauma to the head. COMPARISON: CT head 05/31/2020, 07/14/2020 TECHNIQUE: Contiguous axial imaging was performed from the skull base to vertex without intravenous administration of contrast. Coronal and sagittal reformatted images are performed at the CT scanner. [This CT examination was performed using dose optimization techniques as appropriate, variously including the following: *Automated exposure control *Adjustment of mA and/or kV according to patient size (this includes techniques or standardized protocols for targeted exams where dose is matched to indication/reason for exam; i.e. extremities or head) *Use of iterative reconstruction technique] DLP: 589 mGy-cm. FINDINGS: There is no evidence of acute intracranial hemorrhage or territorial infarction. Stable small lacunar infarct in the left basal ganglia. No abnormal mass-effect or midline shift is seen. Rios to white matter differentiation is well preserved. No extra-axial fluid collections are identified. There is atrophy with prominence of the ventricles and the sulci and hypodensity of the periventricular white matter due to chronic small vessel ischemic disease. There are vascular calcifications of the internal carotid arteries bilaterally. There is no osseous abnormality. The mastoid air cells and visualized portions of the paranasal sinuses are well-aerated. CT/CT head/brain wo con IMPRESSION: No acute intracranial pathology.
--- NOTE | 2020-08-26 18:16 | ED.GENADULT ---
HPI - General Adult General Chief complaint: Fall Stated complaint: weakness fall Time Seen by Provider: 08/26/20 17:50 Source: patient and family (I spoke by phone to the patient daughter, Pia ) Mode of arrival: EMS Limitations: no limitations History of Present Illness HPI narrative: 75-year-old female who presents emergency department for evaluation of fall at home. Information came from the patient and from the patient's daughter, Pia. According to when you, she came home and the patient was sitting in her recliner and had soiled herself. The patient told me she had been sitting in her recliner all day. The patient states that she had to urinate and she was going to get up to go to the bathroom. She states she stood up, became weak and then fell striking her left arm on the coffee table. The daughter reports that the patient fell and did hit the back of her head on the floor but did not have any loss of consciousness. The patient did have 2 episodes of vomiting at home and vomited once here in the emergency department. Here in the emergency department, the patient has no complaints. She denies headache, nausea, chest pain, shortness of breath, abdominal pain, change in bowel movements, frequency, urgency, dysuria, arm or leg pain. In reviewing the records, the patient had 2 falls in May and June of 2020 secondary to weakness without a clear etiology. The daughter states that in July of 2019 the patient was at [facility] for cellulitis of her arm and since then the patient has not been herself and has been weak. The daughter also reported that the patient had renal artery stenosis on 1 side which was treated by Interventional Radiology in May of 2020. The daughter also reports that the patient is noncompliant with her antihypertensive medications and refuses help with managing her medications despite the fact that she lives with a daughter. Related Data Home Medications Medication Instructions Recorded Confirmed aspirin 81 mg PO DAILY 04/30/20 07/14/20 lorazepam [Ativan] 1 mg PO BEDTIME PRN 06/01/20 07/14/20 Previous Rx's Medication Instructions Recorded aspirin 81 mg PO DAILY #30 tab 07/16/20 atorvastatin 1 tab PO BEDTIME #30 tab 07/16/20 hydralazine 50 mg PO TID #90 tab 07/16/20 hydrochlorothiazide 25 mg PO DAILY #30 tab 07/16/20 lisinopril 40 mg PO DAILY #90 tab 07/16/20 metoprolol tartrate 1 tab PO BID #60 tab 07/16/20 nifedipine 1 tab PO Q12H #60 tab 07/16/20 Allergies Allergy/AdvReac Type Severity Reaction Status Date / Time No Known Allergies Allergy Verified 05/31/20 21:43 Review of Systems Review of Systems: Yes all other systems are reviewed and are negative Neurologic: Reports Abnormal speech present [facility] Past Medical History [facility] Narrative: The patient lives at home with her daughter, she does not smoke, drink alcohol or use drugs. Medical History Bradycardia, sinus CAD (coronary artery disease) Diabetic neuropathy, type II diabetes mellitus Fall Flash pulmonary edema Heart attack Hypertension Renal artery stenosis Surgical History Aortocoronary bypass status Social History Social History Household Members: Children Housing: House Alcohol intake: never Smoking Status: Current every day smoker Tobacco Type: Cigarette Cigarettes Per Day: 6 Years Smoked: 60 Second Hand Smoke Exposure: No Use of substances other than those prescribed or required for medical reasons: No Advance Directives: No Advance Directives Information Provided: No service: No Current occupational status: retired Physical Exam Vital Signs: Vital Signs: Last Vital Signs Temp 97.7 F 08/26/20 23:59 Pulse 88 08/26/20 23:59 Resp 18 08/26/20 23:59 BP 171/73 H 08/26/20 23:59 Pulse Ox 96 08/26/20 22:50 Body Mass Index 54.8 Const: General: cooperative, comfortable, no acute distress and well developed Nutritional Appearance: average body habitus Orientation/consciousness: oriented to person and oriented to place Limitations: no limitations HENMT: Head: Yes normal to inspection Ears: hearing grossly normal bilaterally General nose exam: Normal external nose present Face and sinus: Yes normal facial exam Mouth: Normal oral and palatal mucosa present Throat: Yes posterior oropharynx normal Eyes: General: appearance normal, both eyes and all related structures Periorbital: periorbital findings normal Eyelids: Yes eyelids normal Conjunctivae: conjunctivae normal Sclerae: sclerae normal Pupils: Equal, round and reactive pupils present EOM: EOMs intact bilaterally Neck: Neck: Yes normal visual inspection, Yes full ROM, Yes no lymphadenopathy, Yes no meningeal signs, Yes trachea midline, Yes supple, No anterior neck swelling, No midline deformity and No tender Chest: Chest palpation & inspection: normal inspection of the chest and normal palpation of entire chest wall Resp: Effort & Inspection: normal respiratory effort Auscultation: clear to auscultation bilaterally Cardio: Rate: regular rate Rhythm: regular rhythm Heart sounds: S1 normal heart sound present, S2 normal heart sound present and no murmurs GI: Inspection: Yes normal to inspection Palpation (GI): Soft to palpation, nontender and no guarding : General: Yes no CVA tenderness Back/Spine/Pelvis: Back: no CVA tenderness Skin: Wounds: wounds noted (Skin tear left wrist) Neuro: General: oriented to person, oriented to place and no meningeal signs Cranial nerves: Yes CN's II-XII intact bilaterally and Yes Equal, round and reactive pupils present Cognition (Neuro): normal cognition Speech: Abnormal speech present Motor exam (neuro): 5/5 motor strength present throughout Psych: Appearance: grossly normal Mental Status: mental status grossly normal Speech and movement: Normal speech and movement present Affect: normal affect Attitude: cooperative Thought process: Normal thought process present Thought content: Normal thought content present Insight: Good insight present (Psych) Course Course Course Narrative: 75-year-old female who presents emergency department for evaluation will fall at home, unclear if the patient had symptoms prior to the fall but she states that she was weak, she did strike her left arm on a coffee table and according to the daughter she did hit the back of her head. After falling she did have 3 episodes of vomiting. I did order a syncope workup on this patient to include a CT scan of the brain. The patient was noted to be hypertensive with a BP of 190/100 and a pulse of 110. She was ordered to get normal saline x1 L and Zofran 4 mg IV. 1947: The patient does have abrasions/skin tears to her left biceps area, these cannot be repaired with Dermabond, therefore they were dressed with bacitracin and a sterile dressing. I did repair the patient's left wrist skin tear with Dermabond. The patient does have labile hypertension secondary to her bilateral renal artery stenosis. I did speak to her daughter and her daughter states the patient is noncompliant with her medications at home despite the daughter attempting to help the patient with her medications. The daughter is uncertain if the patient took any of her medications today. The patient did have high hypertensive readings but I do not think that she is in hypertensive crisis but she may have hypertensive urgency and that she just needs her outpatient medications. I confirm the following medications with the patient's daughter: Metformin 500 mg b.i.d., aspirin 81 mg daily, nifedipine 60 mg twice a day, atorvastatin 20 mg at night, meta propofol 50 mg twice a day, hydralazine 50 mg 3 times a day, hydrochlorothiazide 25 mg once a day. I ordered the following medications on the patient, metformin 500 mg, nifedipine 60 mg, metoprolol 50 mg, hydralazine 50 mg, all given orally. 2134: The patient vomited shortly after receiving her medications. She still remains hypertensive I will discuss the patient's presentation with the covering transitional nurse in start this patient on IV antihypertensive medications based on our discussion. 2143: I did discuss the patient's presentation with the physician campaign assistant covering intensive care unit, Richie Merritt. He recommended treating the patient's hypertensive urgency with hydralazine 10 mg IV and possibly repeating this in 1 hour. He recommended that the goal would be to try to reduce the patient's systolic blood pressure by approximately 25% or to 175. The patient's initial troponin was elevated at 216, I did order repeat troponin at 10:00 p.m.. Also the patient does have an elevated creatinine of 1.66 but this appears to be chronic. 0005: The patient's blood pressure did improve with the single dose of IV hydralazine. The patient's initial troponin was elevated at 216 which was significantly elevated compared to her previous troponins during her previous admissions. The 3 hour troponin did increase to 238 suggesting that this patient has a type 2 myocardial injury pattern most likely secondary to her hypertension. I will discuss this with the covering certified legal secretary specialist. 0011: I did discuss the patient's presentation with the covering certified legal secretary specialist, Dr. Martínez. He felt the patient's elevated troponin was most likely secondary to hypertension and not acute coronary syndrome and recommended that the patient be admitted for management of her hypertension and to trend her troponins. I will discuss this with the covering hospitalist. 0024: Discussed with hospitalist, and the patient will be admitted to intermediate care for further management. Procedures Laceration Left wrist skin tear: Site: upper extremity Side (If applicable): left (Wrist) Size (cm): 3.5 Description: flap Depth: simple, single layer Pre-repair: wound explored Size (cm): other (Dermabond) Technique: other (Cleaned with Hibiclens, wound closed with Dermabond x1 ) Medical Decision Making Lab Data Result diagrams: 08/26/20 18:58 08/26/20 19:35 Labs: Lab Results 08/26/20 08/26/20 08/26/20 Range/Units 17:34 18:58 18:58 WBC 11.9 H (4.8-10.8) X10*3/uL RBC 5.11 D (4.20-5.50) X10*6/uL Hgb 15.8 D (12.0-16.0) g/dl Hct 46.3 D (37-47) % MCV 90.6 (80-98) fL MCH 30.9 (27.0-33.0) pg MCHC 34.1 (31.0-35.0) g/dl RDW 12.5 (11.0-16.0) % Plt Count 156 L (160-400) X10*3/uL MPV 10.8 (9.4-12.3) fL Immature Gran % (Auto) 0.3 (0.0-0.4) % Neut % (Auto) 91.3 H (45-73) % Lymph % (Auto) 6.5 L (20-40) % [place] % (Auto) 1.5 L (2-11) % Eos % (Auto) 0.2 (0-4) % Baso % (Auto) 0.2 (0-2) % Lymph # (Auto) 0.8 L (1.2-4.9) X10*3/uL [place] # (Auto) 0.2 (0.1-1.2) X10*3/uL Eos # (Auto) 0.0 (0.0-0.4) X10*3/uL Baso # (Auto) 0.0 (0.0-0.2) X10*3/uL Abs Immat Gran (auto) 0.03 (0.00-0.03) X10*3/uL Absolute Neuts (auto) 10.9 H (2.0-8.3) X10*3/uL Absolute Nucleated RBC 0.000 (0.0-0.012) X10*3/uL Nucleated RBC % (auto) 0.0 (0.0-0.2) /100WBC Smear Tech's Comments VERIFIED Sodium (135-145) mmol/L Potassium (3.3-5.1) mmol/L Chloride (96-108) mmol/L Carbon Dioxide (22-29) mmol/L Anion Gap (12-20) BUN (9-16) mg/dL Creatinine (0.5-1.4) mg/dL Estim Creat Clear Calc Estimated GFR POC Glucose 217 H (60-115) mg/dL Random Glucose (60-115) mg/dL Calcium (8.4-10.2) mg/dL Total Bilirubin (0.0-1.0) mg/dL AST (5-31) U/L ALT (0-31) U/L Alkaline Phosphatase (39-117) U/L Troponin I High Sens 216.0 H D (<3.5-17.0) ng/L Total Protein (6.5-8.0) g/dL Albumin (3.5-5.0) g/dL Lipase (8-78) U/L Urine Color Urine Appearance Urine pH (5.0-8.0) Ur Specific [place] (1.005-1.025) Urine Protein (NEG-TRACE) MG/DL Urine Glucose (UA) (NEG) MG/DL Urine Ketones (NEG) MG/DL Urine Blood (NEG) Urine Nitrite (NEG) Ur Leukocyte Esterase (NEG) Urine RBC (0) /HPF Urine WBC (0-4) /HPF Ur Squamous Epith Cells /LPF Urine Bacteria /LPF COVID-19 (CHELITA) (Negative) COVID-19 Clin Com 08/26/20 08/26/20 08/26/20 Range/Units 19:35 22:44 22:46 WBC (4.8-10.8) X10*3/uL RBC (4.20-5.50) X10*6/uL Hgb (12.0-16.0) g/dl Hct (37-47) % MCV (80-98) fL MCH (27.0-33.0) pg MCHC (31.0-35.0) g/dl RDW (11.0-16.0) % Plt Count (160-400) X10*3/uL MPV (9.4-12.3) fL Immature Gran % (Auto) (0.0-0.4) % Neut % (Auto) (45-73) % Lymph % (Auto) (20-40) % [place] % (Auto) (2-11) % Eos % (Auto) (0-4) % Baso % (Auto) (0-2) % Lymph # (Auto) (1.2-4.9) X10*3/uL [place] # (Auto) (0.1-1.2) X10*3/uL Eos # (Auto) (0.0-0.4) X10*3/uL Baso # (Auto) (0.0-0.2) X10*3/uL Abs Immat Gran (auto) (0.00-0.03) X10*3/uL Absolute Neuts (auto) (2.0-8.3) X10*3/uL Absolute Nucleated RBC (0.0-0.012) X10*3/uL Nucleated RBC % (auto) (0.0-0.2) /100WBC Smear Tech's Comments Sodium 137 (135-145) mmol/L Potassium 4.0 (3.3-5.1) mmol/L Chloride 103 (96-108) mmol/L Carbon Dioxide 23 (22-29) mmol/L Anion Gap 15 (12-20) BUN 17 H (9-16) mg/dL Creatinine 1.66 H (0.5-1.4) mg/dL Estim Creat Clear Calc 41.9 Estimated GFR 30 POC Glucose (60-115) mg/dL Random Glucose 220 H D (60-115) mg/dL Calcium 8.4 (8.4-10.2) mg/dL Total Bilirubin 0.9 (0.0-1.0) mg/dL AST 23 D (5-31) U/L ALT 17 (0-31) U/L Alkaline Phosphatase 111 D (39-117) U/L Troponin I High Sens (<3.5-17.0) ng/L Total Protein 6.2 L D (6.5-8.0) g/dL Albumin 3.8 (3.5-5.0) g/dL Lipase 6 L (8-78) U/L Urine Color YELLOW Urine Appearance CLEAR Urine pH 6.5 (5.0-8.0) Ur Specific [place] 1.020 (1.005-1.025) Urine Protein 2+ H (NEG-TRACE) MG/DL Urine Glucose (UA) 250 H (NEG) MG/DL Urine Ketones NEG (NEG) MG/DL Urine Blood TRACE (NEG) Urine Nitrite NEG (NEG) Ur Leukocyte Esterase NEG (NEG) Urine RBC 0-2 (0) /HPF Urine WBC 0 (0-4) /HPF Ur Squamous Epith Cells TRACE /LPF Urine Bacteria TRACE /LPF COVID-19 (CHELITA) Negative (Negative) COVID-19 Clin Com See Note 08/26/20 Range/Units 22:55 WBC (4.8-10.8) X10*3/uL RBC (4.20-5.50) X10*6/uL Hgb (12.0-16.0) g/dl Hct (37-47) % MCV (80-98) fL MCH (27.0-33.0) pg MCHC (31.0-35.0) g/dl RDW (11.0-16.0) % Plt Count (160-400) X10*3/uL MPV (9.4-12.3) fL Immature Gran % (Auto) (0.0-0.4) % Neut % (Auto) (45-73) % Lymph % (Auto) (20-40) % [place] % (Auto) (2-11) % Eos % (Auto) (0-4) % Baso % (Auto) (0-2) % Lymph # (Auto) (1.2-4.9) X10*3/uL [place] # (Auto) (0.1-1.2) X10*3/uL Eos # (Auto) (0.0-0.4) X10*3/uL Baso # (Auto) (0.0-0.2) X10*3/uL Abs Immat Gran (auto) (0.00-0.03) X10*3/uL Absolute Neuts (auto) (2.0-8.3) X10*3/uL Absolute Nucleated RBC (0.0-0.012) X10*3/uL Nucleated RBC % (auto) (0.0-0.2) /100WBC Smear Tech's Comments Sodium (135-145) mmol/L Potassium (3.3-5.1) mmol/L Chloride (96-108) mmol/L Carbon Dioxide (22-29) mmol/L Anion Gap (12-20) BUN (9-16) mg/dL Creatinine (0.5-1.4) mg/dL Estim Creat Clear Calc Estimated GFR POC Glucose (60-115) mg/dL Random Glucose (60-115) mg/dL Calcium (8.4-10.2) mg/dL Total Bilirubin (0.0-1.0) mg/dL AST (5-31) U/L ALT (0-31) U/L Alkaline Phosphatase (39-117) U/L Troponin I High Sens 238.3 H (<3.5-17.0) ng/L Total Protein (6.5-8.0) g/dL Albumin (3.5-5.0) g/dL Lipase (8-78) U/L Urine Color Urine Appearance Urine pH (5.0-8.0) Ur Specific [place] (1.005-1.025) Urine Protein (NEG-TRACE) MG/DL Urine Glucose (UA) (NEG) MG/DL Urine Ketones (NEG) MG/DL Urine Blood (NEG) Urine Nitrite (NEG) Ur Leukocyte Esterase (NEG) Urine RBC (0) /HPF Urine WBC (0-4) /HPF Ur Squamous Epith Cells /LPF Urine Bacteria /LPF COVID-19 ([facility]HELITA) (Negative) COVID-19 Clin Com ECG Data Attestation: I personally reviewed and interpreted this ECG as follows: Interpretation: 1916: Normal sinus rhythm with a rate of 90, prolonged QRS 128 milliseconds, prolonged QTC of 494 milliseconds, right bundle-branch block, no acute ST segment elevation or depression, T-wave abnormalities consistent with right bundle branch block. The patient had an EKG dated 07/14/2020, the patient's right bundle edd block is old, on the previous EKG the patient was bradycardic with a rate of 38. Critical Care Time Critical Care Time Critical Care Time: Yes Total Critical Care Time: 75 Attestation: Critical Care: The patient was critically ill with a high probability of imminent or life threatening deterioration. I spent greater than 30 minutes of discontinuous time evaluating the patient,delivering critical care at the bedside, discussing and evaluating pertinent data with consultants. Critical care time does not include time spent performing separately billable procedures or teaching. Total time spent performing critical care was 75 minutes. Discharge Plan Discharge Clinical Impression: Hypertensive urgency, Elevated troponin, Fall, Head injury, Nausea & vomiting Patient Disposition: Admitted As Inpatient Prescriptions: No Action aspirin 81 mg Tablet 81 mg PO DAILY RF: 0 lorazepam [Ativan] 1 mg Tablet 1 mg PO BEDTIME PRN (Reason: Anxiety) RF: 0 aspirin 81 mg Tablet,Chewable 81 mg PO DAILY Qty: 30 RF: 0 hydrochlorothiazide 25 mg Tablet 25 mg PO DAILY Qty: 30 RF: 2 atorvastatin 20 mg tablet 1 tab PO BEDTIME Qty: 30 RF: 2 nifedipine 60 mg tablet extended release 24hr 1 tab PO Q12H Qty: 60 RF: 2 metoprolol tartrate 50 mg tablet 1 tab PO BID Qty: 60 RF: 2 hydralazine 50 mg Tablet 50 mg PO TID Qty: 90 RF: 2 lisinopril 40 mg tablet 40 mg PO DAILY Qty: 90 RF: 2
[2020-08-26 19:06] LABS: Basophils Percent Auto 0.2 % (0-2); Eosinophils Percent Auto 0.2 % (0-4); Hematocrit 46.3 % (37-47); Hemoglobin 15.8 g/dl (12.0-16.0); Imm Gran Abs Auto 0.03 X10*3/uL (0.00-0.03); Imm Gran Pct Auto 0.3 % (0.0-0.4); Lymphocytes Absolute Auto 0.8 X10*3/uL (1.2-4.9); Lymphocytes Percent Auto 6.5 % (20-40); MANUAL DIFF FLAG SCAN; Mean Corpuscular HGB Conc 34.1 g/dl (31.0-35.0); Mean Corpuscular Hemoglobin 30.9 pg (27.0-33.0); Mean Corpuscular Volume 90.6 fL (80-98); Mean Platelet Volume 10.8 fL (9.4-12.3); Monocytes Absolute Auto 0.2 X10*3/uL (0.1-1.2); Monocytes Percent Auto 1.5 % (2-11); Neutrophils Absolute Auto 10.9 X10*3/uL (2.0-8.3); Neutrophils Percent Auto 91.3 % (45-73); Platelet Count 156 X10*3/uL (160-400); Red Blood Count 5.11 X10*6/uL (4.20-5.50); Red Cell Distribution Width 12.5 % (11.0-16.0); SCAN SMEAR FLAG 1; White Blood Count 11.9 X10*3/uL (4.8-10.8)
[2020-08-26 19:23] LABS: SLIDE REVIEW VERIFIED
--- NOTE | 2020-08-26 19:31 | PC.NURSE ---
dr vela at bedside and is aware of pt bp 263/130 and states ok to give ivf.
[2020-08-26] MEDS: 0.9 % Sodium Chloride 1,000 ML 999 ML IV (19:37)
[2020-08-26] MEDS: ondansetron HCL 4 MG/2 ML VIAL IVPUSH ×2 (19:38→21:15)
[2020-08-26 20:00] LABS: Alanine Aminotransferase 17 U/L (0-31); Albumin Level 3.8 g/dL (3.5-5.0); Alkaline Phosphatase 111 U/L (39-117); Anion Gap 15 (12-20); Aspartate Amino Transferase 23 U/L (5-31); Bilirubin Total 0.9 mg/dL (0.0-1.0); Blood Urea Nitrogen 17 mg/dL (9-16); Calcium 8.4 mg/dL (8.4-10.2); Carbon Dioxide 23 mmol/L (22-29); Chloride 103 mmol/L (96-108); Creatinine Clr Calc Pharmacy 41.9; Estimated Glomerular Filt Rate 30; Glucose Random 220 mg/dL (60-115); Lipase 6 U/L (8-78); Sodium 137 mmol/L (135-145); Total Protein 6.2 g/dL (6.5-8.0)
[2020-08-26] MEDS: NIFEdipine ER 30 MG TAB.ER.24 60 MG PO (20:02)
[2020-08-26] MEDS: metFORMIN HCl 500 MG TABLET PO (20:03)
[2020-08-26] MEDS: Metoprolol Tartrate 50 MG TABLET PO (20:03)
[2020-08-26] MEDS: hydrALAZINE HCl 50 MG TABLET PO (20:04)
[2020-08-26] MEDS: hydrALAZINE HCl 20 MG/ML VIAL 10 MG IVPUSH (21:53)
--- NOTE | 2020-08-26 21:58 | PC.NURSE ---
pt is incont of urine, vomited bile, treated with zofran, bp elevated and treated with iv medication.
[2020-08-26 23:02] LABS: Appearance Urine CLEAR; Color Urine YELLOW; Glucose Urine UA 250 MG/DL (NEG); Leukocyte Esterase Urine NEG (NEG); Nitrite Urine NEG (NEG); PH 6.5 (5.0-8.0); Urine Blood TRACE (NEG); Urine Ketones NEG (NEG); Urine Protein 2+ MG/DL (NEG-TRACE)
[2020-08-26 23:10] LABS: Bacteria Urine TRACE /LPF; RBC Urine 0-2 /HPF (0); Squamous Epithelial Cell Urine TRACE /LPF; WBC Urine 0 /HPF (0-4)
[2020-08-26 23:15] LABS: COVID-19 Test Negative (Negative); IDNOW Serial# 9DD0AD1C
[2020-08-26 23:36] LABS: Troponin-I High Sensitivity 238.3 ng/L (<3.5-17.0)
[2020-08-27] VITALS (18 sets, daily range): BP systolic 140–187; BP diastolic 59–96; PULSE 64–98; RESP 14–20; TEMP 36.4–36.7; O2SAT 95–99
[2020-08-27] MEDS: Aspirin 81 MG TAB.CHEW PO ×2 (00:43→09:29)
--- NOTE | 2020-08-27 00:49 | CT_ITS ---
EXAMINATION: CT ABDOMEN AND PELVIS WITHOUT CONTRAST CLINICAL INFORMATION: Vomiting. COMPARISON: None. TECHNIQUE: Contiguous axial thin section helical images of the abdomen and pelvis were performed without oral or IV contrast. The data set was reformatted in the coronal and sagittal planes and reviewed on an independent workstation. DLP: 419 mGy-cm. FINDINGS: The visualized lung bases are clear. The visualized portions of the heart are unremarkable. The liver is of normal size and attenuation without focal lesions nor intrahepatic biliary ductal dilation. A normal gallbladder is identified. There is no wall thickening or discernible pericholecystic fluid. The spleen and adrenal glands are unremarkable. There is pancreatic atrophy with fatty infiltration. There are a few areas of coarse calcification within the pancreatic head. Both kidneys are of normal size and attenuation without hydronephrosis or nephrolithiasis. There is no abdominal free fluid. There is neither mesenteric nor retroperitoneal lymphadenopathy. Normal unopacified loops of small and large bowel are identified. A normal appendix is identified. There is no pelvic free fluid. The urinary bladder is unremarkable. There is neither pelvic nor inguinal lymphadenopathy. Bone windows: Neither sclerotic nor lytic bone lesions are identified. CT/CT abdomen pelvis wo con IMPRESSION: No acute abdominal or pelvic inflammatory or infectious processes demonstrable. No CT evidence for obstruction. Manifestations of chronic pancreatitis. Automated exposure control (Care Dose) Adjustment of the mA and/or kv according to patient size (this includes techniques or standardized protocols for targeted exams where dose is matched to indication / reason for exam; i.e. extremities or head).
--- NOTE | 2020-08-27 00:52 | PM.IMHP ---
History of Present Illness Date of Service: 08/27/20 Chief Complaint: Fall 75-year-old female with a past medical history of hypertension, hyperlipidemia, diabetes, coronary artery disease, history of FL, history of pulmonary edema, history of bilateral renal artery stenosis, hypertension-poorly controlled-> patient noncompliant, CKD presented to the hospital with a chief complaint of nausea vomiting. Most of the history provided with the patient's daughter Elijah-phone number [phone]. A reported that when she came back from the work noted that patient is covered in stool and subsequently patient was taken to the home bathroom where her legs gave away and had a fall on the left side with injuries to the left arm and left wrist also mentioned patient probably had a head strike. Subsequently brought her to the ER for further help. Daughter mentioned that patient denied any chest pain lightheadedness dizziness. Denies any fever chills cough. Review of all other systems is negative except mentioned above ER course: Per ER physician patient's exam was fairly benign noted to have mild injury on the left arm and left wrist ; exam fairly nonfocal. CT head showed no acute findings. Patient blood pressure was noted to be 240/104. The patient was given a few home medications home but blood pressure remained 190/100. So ER physician spoke to the ICU doctor who suggested IV hydralazine. Subsequently with IV hydralazine the blood pressure improved to 173/78. Patient on the labs noted to have creatinine of 1.6-almost close to her baseline. And also noted to have a troponin elevated to 216-subsequent follow-up troponin elevated to 238. EKG was nonischemic. Spoke to the cardiology dr Martínez-> who mentioned that her elevation troponins are less likely secondary to the ACS; mentioned likely demand from hypertensive urgency., recommended to treat hypertension and also said no need for heparin at this point. [facility] Medical History Bradycardia, sinus CAD (coronary artery disease) Diabetic neuropathy, type II diabetes mellitus Fall Flash pulmonary edema Heart attack Hypertension Renal artery stenosis Surgical History Aortocoronary bypass status Social History Household Members: Children Housing: House Alcohol intake: never Smoking Status: Current every day smoker Tobacco Type: Cigarette Cigarettes Per Day: 6 Years Smoked: 60 Second Hand Smoke Exposure: No Use of substances other than those prescribed or required for medical reasons: No Advance Directives: No Advance Directives Information Provided: No service: No Current occupational status: retired Meds Allergies Allergy/AdvReac Type Severity Reaction Status Date / Time No Known Allergies Allergy Verified 05/31/20 21:43 Home Medications Medication Instructions Recorded Confirmed Type lorazepam [Ativan] 1 mg PO BEDTIME PRN 06/01/20 08/27/20 History Physical Exam Vital Signs and Narrative: Vital Signs: Last Vital Signs Temp 97.7 F 08/26/20 23:59 Pulse 91 08/27/20 00:42 Resp 16 08/27/20 00:42 BP 187/80 H 08/27/20 00:42 Pulse Ox 98 08/27/20 00:42 Body Mass Index 54.8 Gen: Appears be in no acute distress HEENT: NCAT, Moist mucosa. Pulmonary: Vesicular breath sounds, fair air entry CVS: Normal S1-S2 Abdomen: BS+, Soft, Nontender Extremities: Warm well perfused Neuro: Alert and awake. Results Labs CBC and Chem 7: 08/26/20 18:58 08/26/20 19:35 Labs: Laboratory Results - last 24 hr 08/26/20 08/26/20 08/26/20 17:34 18:58 18:58 MCV 90.6 MCH 30.9 MCHC 34.1 RDW 12.5 Plt Count 156 L MPV 10.8 Immature Gran % (Auto) 0.3 Neut % (Auto) 91.3 H Lymph % (Auto) 6.5 L [place] % (Auto) 1.5 L Eos % (Auto) 0.2 Baso % (Auto) 0.2 Lymph # (Auto) 0.8 L [place] # (Auto) 0.2 Eos # (Auto) 0.0 Baso # (Auto) 0.0 Abs Immat Gran (auto) 0.03 Absolute Neuts (auto) 10.9 H Absolute Nucleated RBC 0.000 Nucleated RBC % (auto) 0.0 Smear Tech's Comments VERIFIED Anion Gap Estim Creat Clear Calc Estimated GFR POC Glucose 217 H Random Glucose Calcium Total Bilirubin AST ALT Alkaline Phosphatase Troponin I High Sens 216.0 H D Total Protein Albumin Lipase Urine Color Urine Appearance Urine pH Ur Specific [place] Urine Protein Urine Glucose (UA) Urine Ketones Urine Blood Urine Nitrite Ur Leukocyte Esterase Urine RBC Urine WBC Ur Squamous Epith Cells Urine Bacteria COVID-19 (CHELITA) COVID-19 Clin Com 08/26/20 08/26/20 08/26/20 19:35 22:44 22:46 MCV MCH MCHC RDW Plt Count MPV Immature Gran % (Auto) Neut % (Auto) Lymph % (Auto) [place] % (Auto) Eos % (Auto) Baso % (Auto) Lymph # (Auto) [place] # (Auto) Eos # (Auto) Baso # (Auto) Abs Immat Gran (auto) Absolute Neuts (auto) Absolute Nucleated RBC Nucleated RBC % (auto) Smear Tech's Comments Anion Gap 15 Estim Creat Clear Calc 41.9 Estimated GFR 30 POC Glucose Random Glucose 220 H D Calcium 8.4 Total Bilirubin 0.9 AST 23 D ALT 17 Alkaline Phosphatase 111 D Troponin I High Sens Total Protein 6.2 L D Albumin 3.8 Lipase 6 L Urine Color YELLOW Urine Appearance CLEAR Urine pH 6.5 Ur Specific [place] 1.020 Urine Protein 2+ H Urine Glucose (UA) 250 H Urine Ketones NEG Urine Blood TRACE Urine Nitrite NEG Ur Leukocyte Esterase NEG Urine RBC 0-2 Urine WBC 0 Ur Squamous Epith Cells TRACE Urine Bacteria TRACE COVID-19 (CHELITA) Negative COVID-19 Clin Com See Note 08/26/20 22:55 MCV MCH MCHC RDW Plt Count MPV Immature Gran % (Auto) Neut % (Auto) Lymph % (Auto) [place] % (Auto) Eos % (Auto) Baso % (Auto) Lymph # (Auto) [place] # (Auto) Eos # (Auto) Baso # (Auto) Abs Immat Gran (auto) Absolute Neuts (auto) Absolute Nucleated RBC Nucleated RBC % (auto) Smear Tech's Comments Anion Gap Estim Creat Clear Calc Estimated GFR POC Glucose Random Glucose Calcium Total Bilirubin AST ALT Alkaline Phosphatase Troponin I High Sens 238.3 H Total Protein Albumin Lipase Urine Color Urine Appearance Urine pH Ur Specific [place] Urine Protein Urine Glucose (UA) Urine Ketones Urine Blood Urine Nitrite Ur Leukocyte Esterase Urine RBC Urine WBC Ur Squamous Epith Cells Urine Bacteria COVID-19 (CHELITA) COVID-19 Clin Com Imaging Radiologist's Impressions: Impressions Head CT 08/26/20 18:16 IMPRESSION: No acute intracranial pathology. Assessment and Plan (1) Hypertensive urgency: Status: Acute 75-year-old female with a past medical history of hypertension, hyperlipidemia, CAD, history of FL, history of pulmonary edema, history of bilateral renal artery stenosis, hypertension-poorly controlled, noncompliant presented with nausea vomiting/fall. Fall: Question head strike-denied any loss of consciousness. Witnessed. Exam nonfocal. CT head showed no acute findings. PT/OT. Hypertensive emergency: Patient denies any headaches. CT head as mentioned showed no acute findings. Patient received her p.o. medications. Blood pressure improved from 240/104 to 173/78. Will keep the patient on hydralazine p.r.n.. Goal blood pressure is 170/80 for the next 24 hours. To resume her home medications hydralazine, lisinopril, metoprolol, nifedipine no plan eventually. Patient will benefit visiting nursing services/medication compliance reinforcement at the time of discharge. Troponin elevation: Patient denies any chest pain. Cardiology made aware, less concern for any ACS., recommended no heparin at this point. Echocardiogram. Telemetry Diabetes: Insulin sliding scale CKD: Creatinine at baseline. Will continue to monitor. For all other chronic conditions, home medications will be continued DVT prophylaxis: SCD boots Code status: Full code. Discussed with patient's daughter elijah phone number [phone]
[2020-08-27 01:30] LABS: Glucose, Whole Blood 174 mg/dL (60-115)
--- NOTE | 2020-08-27 03:32 | PC.NURSE ---
pt bladder scanned 401cc, pt [place] [facility].
[2020-08-27 03:51] LABS: Glucose Urine UA 250 MG/DL (NEG); Leukocyte Esterase Urine NEG (NEG); Nitrite Urine NEG (NEG); Specific Gravity - Urine 1.025 (1.005-1.025); Urine Blood TRACE (NEG); Urine Ketones NEG (NEG); Urine Protein 2+ MG/DL (NEG-TRACE)
[2020-08-27 03:52] LABS: Appearance Urine CLEAR; Color Urine YELLOW
[2020-08-27 03:57] LABS: RBC Urine 0-2 /HPF (0); Squamous Epithelial Cell Urine TRACE /LPF; WBC Urine 0-2 /HPF (0-4)
[2020-08-27 07:41] LABS: Glucose, Whole Blood 107 mg/dL (60-115)
[2020-08-27] MEDS: hydroCHLOROthiazide 25 MG TABLET PO (08:40)
[2020-08-27] MEDS: NIFEdipine ER 60 MG TAB.ER.24 PO ×2 (08:41→20:49)
[2020-08-27] MEDS: Metoprolol Tartrate 50 MG TABLET PO ×2 (08:42→20:50)
[2020-08-27] MEDS: 0.9 % Sodium Chloride Flush 3 ML SYRINGE IVFLUSH ×2 (08:42→20:50)
[2020-08-27 11:18] LABS: Glucose, Whole Blood 143 mg/dL (60-115)
--- NOTE | 2020-08-27 11:27 | PM.CNCAR ---
History of Present Illness History of Present Illness Date of Service: 08/27/20 Consult reason: other (Hypertension, troponin release) Chief complaint: HTN EMERGENCY Narrative: We are consulted on [place] for elevated troponins and hypertensive urgency. Patient again ran out of her medications said did not have any refills. She has been noncompliant with follow-ups including in our office and follow-up with workup as outpatient. She has been noncompliant in all her admissions in the past have been related to failure of taking her medications at home. She came to the hospital because she fell down. She says she got up from sitting position got lightheaded and then fell down. She did not have a full syncopal episode however this history is difficult to obtain from her. When she came to the hospital she was not noted to be orthostatic and subsequently developed significant hypertension. She was then started on usual medication a blood pressure is better controlled at this point time. She denies any chest pain or shortness of breath or palpitations. She denies any orthopnea, PND. Review of Systems Cardiovascular: Cardiovascular: Denies chest pain, Denies chest pain at rest, Denies chest pain with activity, Denies rapid heart rate, Reports lightheadedness, Denies radiating jaw, neck or arm pain, Denies palpitations and Denies dyspnea Respiratory: Respiratory: Reports no additional respiratory complaints and Denies dyspnea Gastrointestinal: Gastrointestinal: Reports no additional gastrointestinal complaints Genitourinary: Genitourinary: Reports no additional female genitourinary complaints Neurologic: Reports system reviewed and no additional complaints, except as documented Endocrine: Endocrine: Reports no additional endocrine complaints and Denies palpitations Hematologic/Lymphatic: Hematologic/Lymphatic: Reports no additional hematologic/lymphatic complaints Allergic/Immunologic: Allergic/Immunologic: Reports no additional allergic/immunologic complaints [facility] Past Medical History Medical History (Updated 08/27/20 @ 11:33 by Nura Martínez MD) Bradycardia, sinus CAD (coronary artery disease) Diabetic neuropathy, type II diabetes mellitus Fall Hypertension Noncompliance Surgical History Surgical History Aortocoronary bypass status Social History Social History Household Members: Children Housing: House Alcohol intake: never Smoking Status: Current every day smoker Tobacco Type: Cigarette Cigarettes Per Day: 6 Years Smoked: 60 Second Hand Smoke Exposure: No Use of substances other than those prescribed or required for medical reasons: No Advance Directives: No Advance Directives Information Provided: No service: No Current occupational status: retired Meds Allergies Allergy/AdvReac Type Severity Reaction Status Date / Time No Known Allergies Allergy Verified 05/31/20 21:43 Home Medications Medication Instructions Recorded Confirmed Type lorazepam [Ativan] 1 mg PO BEDTIME PRN 06/01/20 08/27/20 History Physical Exam Vital Signs: Vital Signs: Last Vital Signs Temp 98.0 F 08/27/20 11:14 Pulse 64 08/27/20 11:14 Resp 18 08/27/20 11:14 BP 140/59 H 08/27/20 11:14 Pulse Ox 99 08/27/20 11:14 Body Mass Index 54.8 Const: General: comfortable, no acute distress, alert, awake and ill appearing Nutritional Appearance: thin Orientation/consciousness: patient oriented x3 HENMT: Head: Yes normocephalic and Yes atraumatic Face and sinus: Yes erythema Neck: Neck: Yes trachea midline, Yes supple and Yes no JVD Chest: Chest palpation & inspection: normal inspection of the chest and other (Well-healed sternotomy scar) Resp: Effort & Inspection: decreased respiratory effort Auscultation: no rales, no rhonchi and diminished lung sounds Cardio: Jugular venous distension: no JVD Palpation: normal PMI and heave Rate: regular rate Rhythm: regular rhythm Heart sounds: S1 normal heart sound present, S2 normal heart sound present and Other heart sounds present (S4 present) Skin: General skin exam: ecchymosis Neuro: General: patient oriented x3 and no focal motor deficits Extrem: General: Yes no clubbing, cyanosis or edema Psych: Appearance: disheveled Affect: Indifferent affect present Results Labs and Meds Result diagrams: 08/26/20 18:58 08/26/20 19:35 Lab results: Laboratory Results - last 24 hr 08/26/20 08/26/20 08/26/20 17:34 18:58 18:58 WBC 11.9 H RBC 5.11 D Hgb 15.8 D Hct 46.3 D MCV 90.6 MCH 30.9 MCHC 34.1 RDW 12.5 Plt Count 156 L MPV 10.8 Immature Gran % (Auto) 0.3 Neut % (Auto) 91.3 H Lymph % (Auto) 6.5 L [place] % (Auto) 1.5 L Eos % (Auto) 0.2 Baso % (Auto) 0.2 Lymph # (Auto) 0.8 L [place] # (Auto) 0.2 Eos # (Auto) 0.0 Baso # (Auto) 0.0 Abs Immat Gran (auto) 0.03 Absolute Neuts (auto) 10.9 H Absolute Nucleated RBC 0.000 Nucleated RBC % (auto) 0.0 Smear Tech's Comments VERIFIED Sodium Potassium Chloride Carbon Dioxide Anion Gap BUN Creatinine Estim Creat Clear Calc Estimated GFR POC Glucose 217 H Random Glucose Calcium Total Bilirubin AST ALT Alkaline Phosphatase Troponin I High Sens 216.0 H D Total Protein Albumin Lipase Urine Color Urine Appearance Urine pH Ur Specific [place] Urine Protein Urine Glucose (UA) Urine Ketones Urine Blood Urine Nitrite Ur Leukocyte Esterase Urine RBC Urine WBC Ur Squamous Epith Cells Urine Bacteria COVID-19 (CHELITA) COVID-19 [employer] 08/26/20 08/26/20 08/26/20 19:35 22:44 22:46 WBC RBC Hgb Hct MCV MCH MCHC RDW Plt Count MPV Immature Gran % (Auto) Neut % (Auto) Lymph % (Auto) [place] % (Auto) Eos % (Auto) Baso % (Auto) Lymph # (Auto) [place] # (Auto) Eos # (Auto) Baso # (Auto) Abs Immat Gran (auto) Absolute Neuts (auto) Absolute Nucleated RBC Nucleated RBC % (auto) Smear Tech's Comments Sodium 137 Potassium 4.0 Chloride 103 Carbon Dioxide 23 Anion Gap 15 BUN 17 H Creatinine 1.66 H Estim Creat Clear Calc 41.9 Estimated GFR 30 POC Glucose Random Glucose 220 H D Calcium 8.4 Total Bilirubin 0.9 AST 23 D ALT 17 Alkaline Phosphatase 111 D Troponin I High Sens Total Protein 6.2 L D Albumin 3.8 Lipase 6 L Urine Color YELLOW Urine Appearance CLEAR Urine pH 6.5 Ur Specific [place] 1.020 Urine Protein 2+ H Urine Glucose (UA) 250 H Urine Ketones NEG Urine Blood TRACE Urine Nitrite NEG Ur Leukocyte Esterase NEG Urine RBC 0-2 Urine WBC 0 Ur Squamous Epith Cells TRACE Urine Bacteria TRACE COVID-19 (CHELITA) Negative COVID-19 [employer] Com See Note 08/26/20 08/27/20 08/27/20 22:55 01:25 03:42 WBC RBC Hgb Hct MCV MCH MCHC RDW Plt Count MPV Immature Gran % (Auto) Neut % (Auto) Lymph % (Auto) [place] % (Auto) Eos % (Auto) Baso % (Auto) Lymph # (Auto) [place] # (Auto) Eos # (Auto) Baso # (Auto) Abs Immat Gran (auto) Absolute Neuts (auto) Absolute Nucleated RBC Nucleated RBC % (auto) Smear Tech's Comments Sodium Potassium Chloride Carbon Dioxide Anion Gap BUN Creatinine Estim Creat Clear Calc Estimated GFR POC Glucose 174 H Random Glucose Calcium Total Bilirubin AST ALT Alkaline Phosphatase Troponin I High Sens 238.3 H Total Protein Albumin Lipase Urine Color YELLOW Urine Appearance CLEAR Urine pH 7.0 Ur Specific [place] 1.025 Urine Protein 2+ H Urine Glucose (UA) 250 H Urine Ketones NEG Urine Blood TRACE Urine Nitrite NEG Ur Leukocyte Esterase NEG Urine RBC 0-2 Urine WBC 0-2 Ur Squamous Epith Cells TRACE Urine Bacteria NONE COVID-19 (CHELITA) COVID-19 [employer] 08/27/20 08/27/20 07:37 11:14 WBC RBC Hgb Hct MCV MCH MCHC RDW Plt Count MPV Immature Gran % (Auto) Neut % (Auto) Lymph % (Auto) [place] % (Auto) Eos % (Auto) Baso % (Auto) Lymph # (Auto) [place] # (Auto) Eos # (Auto) Baso # (Auto) Abs Immat Gran (auto) Absolute Neuts (auto) Absolute Nucleated RBC Nucleated RBC % (auto) Smear Tech's Comments Sodium Potassium Chloride Carbon Dioxide Anion Gap BUN Creatinine Estim Creat Clear Calc Estimated GFR POC Glucose 107 143 H Random Glucose Calcium Total Bilirubin AST ALT Alkaline Phosphatase Troponin I High Sens Total Protein Albumin Lipase Urine Color Urine Appearance Urine pH Ur Specific [place] Urine Protein Urine Glucose (UA) Urine Ketones Urine Blood Urine Nitrite Ur Leukocyte Esterase Urine RBC Urine WBC Ur Squamous Epith Cells Urine Bacteria COVID-19 (CHELITA) COVID-19 [employer] EKG shows normal sinus rhythm with voltage criteria for LVH with right bundle-branch block Imaging Radiologist's impression: Impressions Head CT 08/26/20 18:16 IMPRESSION: No acute intracranial pathology. Abdomen/Pelvis CT 08/27/20 00:49 IMPRESSION: No acute abdominal or pelvic inflammatory or infectious processes demonstrable. No CT evidence for obstruction. Manifestations of chronic pancreatitis. Automated exposure control (Care Dose) Adjustment of the mA and/or kv according to patient size (this includes techniques or standardized protocols for targeted exams where dose is matched to indication / reason for exam; i.e. extremities or head). Assessment and Plan (1) Hypertensive urgency: Status: Acute Hypertensive urgency due to noncompliance. Patient has been noncompliant with follow-ups, blames it on the system or her primary care physician. But she does not show up for appointment. She needs social intervention from this perspective. This has been discussed in the past. She is not showing much interested in this. She says she does not have right. I think alternatives can be arranged for this. Importance of compliance with medications was discussed with her again. Her blood pressure appears better controlled as by starting her usual medications. Long-term systemic damage due to uncontrolled blood pressure was discussed with her. Continue her usual medications. (2) Noncompliance: Status: Acute Noncompliance with multiple repeated hospitalization related to noncompliance with hypertensive urgency. This needs to be addressed from child support case officer perspective. (3) CAD (coronary artery disease): Status: Acute Prior history of CAD status post single-vessel coronary artery bypass grafting in [place]. She has been advised to undergo stress test given her multiple risk factors and multiple admissions with hypertensive urgency in troponin leak. However she has not followed through with the same. Continue aspirin therapy. Continue high-intensity statin therapy. Continue aggressive control of blood pressure as 1. (4) Elevated troponin: Status: Acute Troponin leak most likely due to hypertensive urgency and myocardial injury related to the same. This is not suggestive of myocardial infarction or acute coronary syndrome. No need for anticoagulation. Will sign of the case. Thank you for allowing us to partake in the care
--- NOTE | 2020-08-27 13:27 | MHC.CM.PN ---
Attempted to meet with patient in regards to discharge planning. Patient currently sleeping. Spoke with patient's daughter, Pia via telephone at [phone]. Patient lives with Pia, ambulates independently and had no services prior to coming to the hospital. When patient was last discharged, VNA services couldn't be arranged because patient stated she was changing PCP's. This has not happen. Pia feels patient is not taking her medications at all and feels she needs help with medication administration. Pia agreeable to referral to [facility] so that medication administration assistance can be arranged. IMM explained and sent via certified mail. Pia will transport patient home when medically stable. Continue to monitor for d/c needs.
--- NOTE | 2020-08-27 14:04 | MHC.CM.PN ---
Received notification that [facility] can't acccept [facility] patients at this time. [facility] will not be able to help with daily medication administration. Referral broadcasted in [facility] at this time. Continue to monitor for d/c needs.
[2020-08-27 20:29] LABS: Glucose, Whole Blood 125 mg/dL (60-115)
[2020-08-27] MEDS: Atorvastatin Calcium 20 MG TABLET PO (20:48)
[2020-08-27] MEDS: hydrALAZINE HCl 50 MG TABLET PO (20:50)
[2020-08-28] VITALS (7 sets, daily range): BP systolic 143–160; BP diastolic 61–73; PULSE 60–70; RESP 15–19; TEMP 35.9–36.7; O2SAT 96–99; BMI 24.9
--- NOTE | 2020-08-28 | CT_ITS ---
EXAMINATIONS: CT HEAD WITHOUT CONTRAST AND CT CERVICAL SPINE WITHOUT CONTRAST CLINICAL INFORMATION: Fall. Trauma. COMPARISON: 08/26/2020. TECHNIQUE: Contiguous helical images of the brain were obtained without IV contrast. Contiguous helical images of the cervical spine were obtained without IV contrast. Multiplanar reconstructions were performed. DLP: 1279 mGy-cm. FINDINGS: There are no pathologic extra-axial fluid collections. The lateral, third, fourth ventricles are prominent, though stable, age-appropriate and concordant with the appearance of the sulci. There is new demonstration of low-attenuation within the medial and posterior aspect of the left cerebellum. There are no additional manifestations of intraparenchymal infarction. There is no intracranial hemorrhage. There is periventricular low-attenuation indicative of small vessel disease. There is neither mass nor mass effect. There is no shift of midline structures. The paranasal sinuses and mastoid air cells are clear. There are no osseous lesions. There is a soft tissue hematoma anterior to the frontal bone. The cervical vertebra are in normal alignment. There is disc height loss at C4/C5, C5/C6 and C6/C7 with anterior osteophyte formation. Disc heights and vertebral heights are otherwise well-preserved. There are no fractures. There is no prevertebral soft tissue swelling. There is no cervical lymphadenopathy. The visualized lung apices are clear. CT/CT cervical spine wo con IMPRESSION: New demonstration of low-attenuation within the left cerebellum indicative of an acute left cerebellar infarction. No evidence for hemorrhage. Please note that the prior CT obtained approximately 32 hours ago had no findings at this location. As such, the infarction is less than 32 hours old, though likely greater than 6 hours old based upon the appearance on CT. No evidence for acute injury to the cervical spine. The aforementioned was communicated to Dr. Lantigua at 0350 hours. Automated exposure control (Care Dose) Adjustment of the mA and/or kv according to patient size (this includes techniques or standardized protocols for targeted exams where dose is matched to indication / reason for exam; i.e. extremities or head).
--- NOTE | 2020-08-28 | MR_ITS ---
EXAMINATION: MR BRAIN WITHOUT CONTRAST CLINICAL INFORMATION: Follow-up for left cerebellar stroke. COMPARISON: CT dated 08/28/2020. TECHNIQUE: Multiplanar, multisequence imaging of the brain was performed without contrast. FINDINGS: There is an acute infarct in the inferior left cerebellar hemisphere with involvement of the vermis in the PICA vascular territory. Acute ischemia also minimally involves the left dorsolateral medulla. A mild amount of patchy low signal change is present on the gradient refocused acquisition indicative for petechial hemorrhage. No gross hemorrhagic conversion is otherwise evident. No midline shift is seen. Severe chronic white matter microangiopathic changes noted. Chronic left basal ganglia infarct visible. There are additional scattered small chronic white matter infarcts. Innumerable prominent perivascular spaces present in the gangliocapsular structures. No extra-axial fluid collections are seen. Significant small vessel ischemic changes noted within the mitchell. Generalized parenchymal volume loss evident without hydrocephalus. There is a small chronic infarct in the right cerebellar hemisphere. The craniovertebral junction, marrow signal, and remaining midline structures are normal. The major intracranial flow voids at the level of the [place] are preserved. The dural venous sinus flow voids are maintained. The mastoid air cells are well aerated. There is mild mucosal thickening in the right sphenoid sinus and anterior ethmoid air cells. Left frontal scalp contusion and hematoma again noted. MR/MR head/brain wo con IMPRESSION: Acute inferior left cerebellar infarct with mild petechial hemorrhage in the PICA vascular territory. Additional involvement of the cerebellar vermis and left dorsolateral medulla. Mass effect results in mild to moderate fourth ventricular compression. No evidence of hydrocephalus. Extensive chronic white matter microangiopathy and scattered small chronic infarcts. Left frontal scalp soft tissue contusion and hematoma.
--- NOTE | 2020-08-28 04:09 | P.EN_ITS ---
Event Note Date of Service: 08/28/20 Event Note: Acute cerebellar stroke: At around 3:00 a.m. in the morning on 08/28/2020, RN mentioned that patient was noted to be leaning to the wall unclear if she had any fall. Admitted to spoke with the patient patient mentioned that she did not have any fall but she felt d denny and leaned onto the wall. Denies any headache blurry visions numbness tingling or focal weakness. Noted ?nose injury; Patient's exam was benign except for slightly impaired [id number] test on the left upper extremity. Fairly well performed [id number] test; extent equal bilaterally sensations intact bilaterally. Musculoskeletal exam benign. Obtain CT head and CT neck stat-CT head showed acute left cerebellar stroke; no hemorrhage. CT C-spine showed no acute fracture Unclear last well-known time; per RN patient has been sleeping all night Spoke with Radiology, mentioned that the onset likely greater than 6 hours and probably less than 24 to 36 hours. Spoke to the neurologist Dr. Lambert, mentioned that patient does not qualify for tPA Will continue to monitor on telemetry Echo with bubble study PT/OT, speech and swallow eval Fall precautions Patient is on aspirin Will sign-out to the morning team
[2020-08-28 05:00] LABS: MANUAL DIFF FLAG NO
[2020-08-28 05:05] LABS: Basophils Percent Auto 0.2 % (0-2); Eosinophils Absolute Auto 0.1 X10*3/uL (0.0-0.4); Eosinophils Percent Auto 0.6 % (0-4); Hematocrit 43.1 % (37-47); Hemoglobin 14.5 g/dl (12.0-16.0); Imm Gran Abs Auto 0.06 X10*3/uL (0.00-0.03); Imm Gran Pct Auto 0.5 % (0.0-0.4); Mean Corpuscular HGB Conc 33.6 g/dl (31.0-35.0); Mean Corpuscular Hemoglobin 31.3 pg (27.0-33.0); Mean Corpuscular Volume 92.9 fL (80-98); Mean Platelet Volume 10.8 fL (9.4-12.3); Monocytes Absolute Auto 0.3 X10*3/uL (0.1-1.2); Monocytes Percent Auto 2.7 % (2-11); Neutrophils Absolute Auto 10.6 X10*3/uL (2.0-8.3); Platelet Count 159 X10*3/uL (160-400); Red Blood Count 4.64 X10*6/uL (4.20-5.50); Red Cell Distribution Width 13.1 % (11.0-16.0)
--- NOTE | 2020-08-28 05:12 | PC.NURSE ---
Pt had an unwitnessed incident, bed alarm went off, pt noted to be leaning against wall when aid arrived to room, and helped pt back into bed. Pt with small abrasion to bridge of nose, lump to forehead. MD made aware, new order for STAT Brain CT/C-spine. Brain CT results revealed an acute left cerebellar infarct. MD back to pts bedside, pt showing deficit in left upper extremity. New orders placed for neuro consult, pt/ot consult, and echocaridogram. Will continue to closely monitor pt. Telesitter at pt bedisde, bed alarm, high fall risk precautions are in place.
[2020-08-28 05:20] LABS: Anion Gap 16 (12-20); Blood Urea Nitrogen 23 mg/dL (9-16); Calcium 8.7 mg/dL (8.4-10.2); Carbon Dioxide 21 mmol/L (22-29); Chloride 104 mmol/L (96-108); Creatinine Clr Calc Pharmacy 38.9; Estimated Glomerular Filt Rate 28; Glucose Random 150 mg/dL (60-115); Potassium 3.8 mmol/L (3.3-5.1); Sodium 137 mmol/L (135-145)
--- NOTE | 2020-08-28 07:30 | CA_ITS ---
Transthoracic Echocardiogram Patient (Last, First, Middle): Ilir Schreiber, Gender: Female Date of : 1945 Age: 75 Procedure Date: 08/28/2020 Procedure Type: Transthoracic Echocardiogram Location: [facility] [place] Height: 162.56 cm Weight: 65.77 kg BSA: 1.71 m2 Heart Rate: bpm BP: 177 / 77 mmHg Evidence Technician: VANESA Bullock MD: Cb Lantigua MD Clinical Quality Assurance Specialist: Nura Martínez MD Symptoms: elevated troponin, stroke Study Quality: Good ECG Rhythm: Sinus Conclusions: - 1. Normal LV systolic function with impaired relaxation filling pattern with elevated filling pressures 2. Normal cardiac valvular Doppler 3. Normal RV systolic pressure 4. No gross pericardial effusion Findings Left Ventricle Normal left ventricular size, thickness, and systolic function. The visually estimated ejection fraction is between 55-60%. Spectral Doppler is indicative of an impaired relaxation filling pattern. Elevated filling pressures. E/E prime ratio is >15, consistent with elevated filling pressures. Right Ventricle Normal right ventricular cavity size and systolic function. Atria Both atria are normal in size. There is no evidence of interatrial shunt. Aortic Valve There is mild calcification of the aortic valve. There is no aortic valve stenosis. There is no aortic valve regurgitation. Mitral Valve Likely normal mitral valve structure and function. There is trace mitral valve regurgitation. There is no mitral valve stenosis. Pulmonic Valve The pulmonic valve was not well visualized. Tricuspid Valve Likely normal tricuspid valve structure and function. There is mild tricuspid valve regurgitation. The right ventricular systolic pressure is normal. The right ventricular systolic pressure is 33 mmHg. Normal right atrial pressure. There is no evidence of pulmonary hypertension. Great Vessels All visible segments of the aorta are normal in size. The pulmonary artery was not well visualized. Venous The inferior vena cava is normal in size and collapses greater than 50% with inspiration. Pericardium/Pleural There is no evidence of pericardial effusion. Prior Study Comparison No significant change compared to prior study dated: 08/28/2019. Measurements 2D Linear Measurements IVSd: 1.03 0.6-0.9/0.6-1.0 cm LVIDd: 3.87 3.9-5.3/4.2-5.9 cm LVIDd Index: 2.26 2.4-3.2/2.2-3.1 cm/m2 LVIDs: 2.85 2.0-3.6 cm LVPWd: 1.08 0.7-1.1 cm Ao Root: 3.00 2.1-3.5 cm LA Diam: 3.10 2.7-3.8/3.0-4.0 cm LAIDs Index: 1.81 1.5-2.3 cm/m2 LV Mass: 162.12 67-162/88-224 g LV Mass Index: 94.81 43-95/49-115 g/m2 LVOT Diam: 2.10 3.0+(-)1.3 cm 2D Systolic Function EF 4C: 55.90 >55% EF 2C: 55.20 >55% EF BiP: 56.40 >55% Mitral Valve MV Pk E: 0.66 MV PK A: 0.86 MV Decel Time: 250.00 E/A: 0.80 E'Lateral: 3.37 E'Medial: 3.81 E/E' Med: 17.30 E/E' Lat: 19.60 PHT: 73.00 MVA PHT: 3.01 Decel Sumner: 2.65 Aortic Valve AoV Pk Ezra: 1.49 AoV Mn Ezra: 0.95 AoV VTI: 0.27 AoV Pk Grad: 9.00 Aov Mn Grad: 4.00 ANA Cont.VTI: 2.34 LVOT LVOT Pk Ezra: 1.05 LVOT Mn Ezra: 0.61 LVOT VTI: 0.18 LVOT Pk Grad: 4.00 LVOT Mn Grad: 2.00 LVOT Diam: 2.10 LVOT Area: 3.46 Diastolic Function MV Pk E: 0.66 MV Pk A: 0.86 E/A: 0.80 E'Medial: 3.81 E/E' Med: 17.30 E' Laterial: 3.37 E/E' Lat: 19.60 Tricuspid Valve TR Pk Ezra: 2.76 TR Pk Grad: 30.00 RA Press: 3.00 RVSP: 33.00 Great Vessels Aorta Ao Root-2D: 3.00 2.0-3.7 cm Ao Asc: 3.00 2.1-3.4 cm Updated in Other Vendor System with Status of Final Nura Martínez MD electronically signed on 08/28/2020 1:44:39 PM with status of Final
[2020-08-28 08:28] LABS: Glucose, Whole Blood 121 mg/dL (60-115)
--- NOTE | 2020-08-28 10:16 | P.PNIM_ITS ---
Subjective Subjective Date of Service: 08/28/20 Interval History: fell yesterday, found to have acute cva, now no complaints Cardiovascular Cardiovascular: Reports no additional cardiovascular complaints Respiratory Respiratory: Reports no additional respiratory complaints Physical Exam Vital Signs: Vital Signs: Last Vital Signs Temp 98.1 F 08/28/20 07:58 Pulse 65 08/28/20 07:58 Resp 15 08/28/20 07:58 BP 149/73 H 08/28/20 07:58 Pulse Ox 97 08/28/20 07:58 Body Mass Index 54.8 General: AO X 3, no acute distress, left eye hematoma, left arm echymosis Resp: CTA bilateral CVS: S1,S2,RRR GI: soft, non tender, non distended Neuro: motor grossly intact Psych: appropriate affect Objective Data Current Medications Generic Name Dose Route Start Last Admin Trade Name Freq PRN Reason Stop Dose Admin Acetaminophen 650 mg 08/27/20 00:43 Acetaminophen Supp 650 Mg Supp.Rect AK Q6H PRN Pain, Mild (Pain Scale 1-3) Aspirin 81 mg 08/27/20 09:00 08/27/20 09:29 Aspirin 81 Mg Tab.Chew PO 81 mg DAILY [facility] Administration Atorvastatin Calcium 80 mg 08/28/20 21:00 Atorvastatin Calcium 80 Mg Tablet PO BEDTIME [facility] Hydrochlorothiazide 25 mg 08/27/20 09:00 08/27/20 08:40 Hydrochlorothiazide 25 Mg Tablet PO 25 mg DAILY [facility] Administration Protocol Insulin Human Lispro 0 unit 08/27/20 07:30 08/27/20 20:51 Insulin Lispro 100 Unit/Ml 3 Ml Vial SUBCUT Not Given QIDACHS [facility] Protocol Lorazepam 1 mg 08/27/20 00:48 Lorazepam 1 Mg Tablet PO BEDTIME PRN Anxiety Metoprolol Tartrate 50 mg 08/27/20 09:00 08/27/20 20:50 Metoprolol Tartrate 50 Mg Tablet PO 50 mg BID [facility] Administration Protocol Sodium Chloride 3 ml 08/27/20 08:00 08/27/20 20:50 0.9 % Sodium Chloride Flush 3 Ml Syringe IVFLUSH 3 ml QSHIFT [facility] Administration Labs CBC & Chem 7: 08/28/20 04:52 08/28/20 04:52 Assessment and Plan (1) Hypertensive urgency: Status: Acute Assessment and Plan: 75-year-old female with a past medical history of hypertension, hyperlipidemia, CAD, history of [place], history of pulmonary edema, history of bilateral renal artery stenosis, hypertension-poorly controlled, noncompliant presented with nausea vomiting/fall. fell again 2/3 early AM, found to have cerebellar cva acute cerebellar CVA asa, increase lipitor to 80 neuro eval mri passed dysphagia screeen pt, ot echo check lipids permissive htn DM insulin HTN non compliant with meds, would avoid over treatment given CVA holding hydralazine, nifedipine, lisinopril, monitor closely CKD III elevated since may 2020, stable CAD asa, statin
[2020-08-28] MEDS: Aspirin 81 MG TAB.CHEW PO (10:22)
[2020-08-28] MEDS: Metoprolol Tartrate 50 MG TABLET PO (10:22)
[2020-08-28] MEDS: hydroCHLOROthiazide 25 MG TABLET PO (10:22)
[2020-08-28] MEDS: 0.9 % Sodium Chloride Flush 3 ML SYRINGE IVFLUSH ×2 (10:22→15:51)
--- NOTE | 2020-08-28 10:51 | MHC.STROKE ---
ON 08/28/20 APPROXIMATELY 0245 THE HOSPITALIST WAS NOTIFIED PATIENT LEANING TO THE RIGHT. HX OF FALLS, STAT CT HEAD ORDERED AT 0249. RESULTS NO BLEED, ACUTE LEFT CEREBELLAR STROKE IDENTIFIED. NEUROLOGY NOTIFIED, NOT A TPA CANDIDATE DUE TO > 4.5 HOURS FROM ONSET, STROKE SEEN ON CT, FREQUENT RECENT FALLS, HIT HER HEAD. I DID CLARIFY LAST KNOWN WELL TO BE 08/25/20 AT 2100 WHEN SHE WENT TO BED. SHE WOKE ON 08/26/20 0600 AND IMMEDIATELY FELL AND MANAGED TO GET HERSELF IN THE CHAIR. SHE LIVES WITH HER DAUGHTER AND THE DAUGHTER WENT TO WORK. SHE STAYED IN HER CHAIR ALL DAY. SHE CAME TO THE ED 08/26/20 AT 1701, EMS PRE-NOTIFIED AT 1650 [facility] [place] IN A STROKE ALERT. PRESENTED WITH FALLS, N/V, DIZZY, INITIAL CT DONE AT 1818, NO BLEED, OLD LACUNAR STROKE. HER BP AT THAT TIME WAS QUITE ELEVATED SBP 190-200'S. SHE SAID SHE HAD BEEN TAKING HER ASPIRIN BUT SHE'S NOT SURE SHE WAS TAKING ANY OF HER OTHER MEDICATIONS. IT WAS NOTED THAT SHE HAS BEEN NON-COMPLIANT WITH HER MEDICATIONS. HER NIHSS = 0 UPON ARRIVAL AND TODAY NIHSS = 2 FOR ATAXIA. SHE PASSED HER INITIAL SWALLOW IN THE ED ON 08/26/20 AT 0840 PRIOR TO PO AND PASSED HER SWALLOW TODAY. ADDITIONAL STROKE ORDERS ENTERED. DR WOLF SAW HER IN CONSULT THIS AM. MRI IS PENDING AT 1200. I DID PROVIDE HER WITH STROKE EDUCATION, WE REVIEWED HER STROKE RISK FACTORS, MEDICATION COMPLIANCE, SMOKING CESSATION, A LIPID PANEL WILL BE DONE IN THE MORNING.SHE WAS SUPPOSE TO BE TAKING A STATIN ACCORDING TO THE ED MD NOTES. I WILL CONTINUE TO FOLLOW.
--- NOTE | 2020-08-28 10:58 | P.CNNE_ITS ---
History of Present Illness Data of Consult Service Date: 08/28/20 Primary Care Provider: Jerry Hart, [facility]- 75 years old woman who was initially admitted hospital with hypertension. Last night she fell and had a CT scan done that revealed an infarct in this consultation was obtained. Onset of her symptoms were somewhat not clear so she was not treated with intravenous tPA or any similar treatment. She did not have any complaint of headache double vision nausea or vomiting. 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 She was able to answer questions or follow commands. There was ecchymosis around her left eye and a bruise on her nose. Pupils were equal and reactive to light and extraocular muscles were intact. There was no nystagmus. There was mild left [id number] ataxia. Deep tendon reflexes were absent with flexor plantars. Results Labs CBC & Chem 7: 08/28/20 04:52 08/28/20 04:52 Labs: Short CBC 08/28/20 Range/Units 04:52 WBC 12.0 H (4.8-10.8) X10*3/uL Hgb 14.5 (12.0-16.0) g/dl Hct 43.1 (37-47) % Plt Count 159 L (160-400) X10*3/uL BMP 08/28/20 04:52 Sodium 137 Potassium 3.8 Chloride 104 Carbon Dioxide 21 L BUN 23 H Creatinine 1.79 H Calcium 8.[address] revealed a subacute moderate-sized left cerebellar infarct. Previously her CTA did not reveal any vascular lesion in the neck or brain. Assessment and Plan (1) Cerebellar infarct: Status: Acute 75 years old woman with uncontrolled hypertension and a subacute left cerebellar infarct. At this time she did not have any sign of brain herniation or complication from this infarct. She had ataxia, which was explainable. Diana nstay of management is combination of blood pressure control, anti-platelet agent, and statin. PT OT consultation should be obtained she should be advised to not walk without a walker.
[2020-08-28 12:24] LABS: Glucose, Whole Blood 209 mg/dL (60-115)
[2020-08-28 13:16] LABS: Glucose, Whole Blood 160 mg/dL (60-115)
[2020-08-28] MEDS: Insulin Lispro 100 UNIT/ML 3 ML VIAL SUBCUT (13:28)
--- NOTE | 2020-08-28 14:16 | PC.NURSE ---
notified dr. Pacheco about pt having long pauses on monitoring specialist. HR shows to be 40's at times. Pt asymptomatic. Betablocker to be held per MD. no other orders at this time
[2020-08-28 16:52] LABS: Glucose, Whole Blood 78 mg/dL (60-115)
[2020-08-28 17:59] LABS: Glucose, Whole Blood 102 mg/dL (60-115)
[2020-08-28 17:59] LABS: Glucose, Whole Blood 79 mg/dL (60-115)
[2020-08-28 20:50] LABS: Glucose, Whole Blood 136 mg/dL (60-115)
[2020-08-29] VITALS (8 sets, daily range): BP systolic 149–196; BP diastolic 72–96; PULSE 51–78; RESP 16–19; TEMP 36.3–36.9; O2SAT 95–99
[2020-08-29] MEDS: 0.9 % Sodium Chloride Flush 3 ML SYRINGE IVFLUSH ×3 (01:12→16:45)
[2020-08-29 06:06] LABS: MANUAL DIFF FLAG NO
[2020-08-29 06:11] LABS: Basophils Percent Auto 0.3 % (0-2); Eosinophils Absolute Auto 0.1 X10*3/uL (0.0-0.4); Eosinophils Percent Auto 1.1 % (0-4); Hemoglobin 14.6 g/dl (12.0-16.0); Imm Gran Abs Auto 0.03 X10*3/uL (0.00-0.03); Imm Gran Pct Auto 0.3 % (0.0-0.4); Lymphocytes Absolute Auto 1.5 X10*3/uL (1.2-4.9); Lymphocytes Percent Auto 16.1 % (20-40); Mean Corpuscular Hemoglobin 30.7 pg (27.0-33.0); Mean Corpuscular Volume 90.5 fL (80-98); Mean Platelet Volume 10.7 fL (9.4-12.3); Monocytes Absolute Auto 0.4 X10*3/uL (0.1-1.2); Monocytes Percent Auto 4.3 % (2-11); Neutrophils Absolute Auto 7.3 X10*3/uL (2.0-8.3); Neutrophils Percent Auto 77.9 % (45-73); Platelet Count 161 X10*3/uL (160-400); Red Blood Count 4.75 X10*6/uL (4.20-5.50); Red Cell Distribution Width 12.5 % (11.0-16.0); White Blood Count 9.3 X10*3/uL (4.8-10.8)
[2020-08-29 06:39] LABS: Anion Gap 14 (12-20); Blood Urea Nitrogen 25 mg/dL (9-16); Calcium 8.4 mg/dL (8.4-10.2); Carbon Dioxide 28 mmol/L (22-29); Chloride 98 mmol/L (96-108); Cholesterol 133 mg/dL; Creatinine Clr Calc Pharmacy 27.5; Estimated Glomerular Filt Rate 30; Glucose Fasting 96 mg/dL (60-99); HDL Cholesterol 56 mg/dL; LDL Cholesterol Calculated 51 mg/dl; Potassium 3.6 mmol/L (3.3-5.1); Sodium 136 mmol/L (135-145); Triglycerides 131 mg/dL
[2020-08-29] MEDS: Aspirin 81 MG TAB.CHEW PO (07:26)
[2020-08-29] MEDS: hydroCHLOROthiazide 25 MG TABLET PO (07:26)
[2020-08-29 08:00] LABS: Glucose, Whole Blood 90 mg/dL (60-115)
--- NOTE | 2020-08-29 10:38 | HO.PM.IMPN ---
Subjective Subjective Date of Service: 08/29/20 Interval History: no complaints Cardiovascular Cardiovascular: Reports no additional cardiovascular complaints Gastrointestinal Gastrointestinal: Reports no additional gastrointestinal complaints Physical Exam Vital Signs: Vital Signs: Last Vital Signs Temp 98.2 F 08/29/20 07:14 Pulse 63 08/29/20 09:41 Resp 16 08/29/20 07:14 BP 177/78 H 08/29/20 09:41 Pulse Ox 97 08/29/20 09:41 Body Mass Index 24.9 General: AO X 3, no acute distress, periorbital echymosis Resp: CTA bilateral CVS: S1,S2,RRR GI: soft, non tender, non distended Neuro: motor grossly intact Psych: appropriate affect Objective Data Current Medications Generic Name Dose Route Start Last Admin Trade Name Freq PRN Reason Stop Dose Admin Acetaminophen 650 mg 08/27/20 00:43 Acetaminophen Supp [address] Q6H PRN Pain, Mild (Pain Scale 1-3) Aspirin 81 mg 08/27/20 09:00 08/29/20 07:26 Aspirin 81 Mg Tab.Chew PO 81 mg DAILY [facility] Administration Atorvastatin Calcium 80 mg 08/28/20 21:00 08/28/20 20:58 Atorvastatin Calcium 80 Mg Tablet PO Not Given BEDTIME [facility] Hydrochlorothiazide 25 mg 08/27/20 09:00 08/29/20 07:26 Hydrochlorothiazide 25 Mg Tablet PO 25 mg DAILY [facility] Administration Protocol Insulin Human Lispro 0 unit 08/27/20 07:30 08/29/20 07:32 Insulin Lispro 100 Unit/Ml 3 Ml Vial SUBCUT Not Given QIDACHS [facility] Protocol Lorazepam 1 mg 08/27/20 00:48 Lorazepam 1 Mg Tablet PO BEDTIME PRN Anxiety Sodium Chloride 3 ml 08/27/20 08:00 08/29/20 07:26 0.9 % Sodium Chloride Flush 3 Ml Syringe IVFLUSH 3 ml QSHIFT [facility] Administration Labs CBC & Chem 7: 08/29/20 05:47 08/29/20 05:47 Assessment and Plan (1) Hypertensive urgency: Status: Acute Assessment and Plan: 75-year-old female with a past medical history of hypertension, hyperlipidemia, CAD, history of [place], history of pulmonary edema, history of bilateral renal artery stenosis, hypertension-poorly controlled, noncompliant presented with nausea vomiting/fall. fell again 2/3 early AM, found to have cerebellar cva acute cerebellar CVA MRI with large cellebelar stroke plan for acute rehab continue asa, statin, bp control DM insulin HTN non compliant with meds, would avoid over treatment given CVA slowly restart hydralazine, nifedipine, lisinopril, monitor closely CKD III elevated since may 2020, stable CAD asa, statin bradycardia metoprolol on hold
[2020-08-29 11:38] LABS: Glucose, Whole Blood 185 mg/dL (60-115)
--- NOTE | 2020-08-29 14:14 | MHC.CM.PN ---
Acute Rehab is the goal for dc. Both [facility] are interested and following. Referrals have been updated in [facility] and Acute Rehab will need insurance authorization. CM will follow.
--- NOTE | 2020-08-29 14:19 | MHC.CM.PN ---
[facility] cannot guarantee an available bed tomorrow. CM met with Patient who is agreeable to [facility] pursuing insurance authorization. CM will continue to follow for dc planning.
[2020-08-29 16:25] LABS: Glucose, Whole Blood 98 mg/dL (60-115)
[2020-08-29 20:21] LABS: Glucose, Whole Blood 124 mg/dL (60-115)
[2020-08-29] MEDS: Atorvastatin Calcium 80 MG TABLET PO (22:24)
[2020-08-30] VITALS (8 sets, daily range): BP systolic 170–215; BP diastolic 72–99; PULSE 70–100; RESP 15–18; TEMP 36.2–36.5; O2SAT 98–99
[2020-08-30] MEDS: 0.9 % Sodium Chloride Flush 3 ML SYRINGE IVFLUSH ×3 (00:28→15:37)
[2020-08-30] MEDS: hydroCHLOROthiazide 25 MG TABLET PO (07:55)
[2020-08-30] MEDS: Aspirin 81 MG TAB.CHEW PO (07:55)
[2020-08-30] MEDS: NIFEdipine ER 60 MG TAB.ER.24 PO (08:00)
[2020-08-30] MEDS: hydrALAZINE HCl 50 MG TABLET PO ×2 (08:00→15:37)
[2020-08-30 08:18] LABS: Glucose, Whole Blood 104 mg/dL (60-115)
--- NOTE | 2020-08-30 10:51 | P.PNIM_ITS ---
Subjective Subjective Date of Service: 08/30/20 Interval History: no complaints Cardiovascular Cardiovascular: Reports no additional cardiovascular complaints Respiratory Respiratory: Reports no additional respiratory complaints Physical Exam Vital Signs: Vital Signs: Last Vital Signs Temp 97.2 F 08/30/20 07:18 Pulse 72 08/30/20 08:00 Resp 16 08/30/20 07:18 BP 200/90 H 08/30/20 08:00 Pulse Ox 98 08/30/20 07:18 Body Mass Index 24.9 General: AO X 3, no acute distress Resp: CTA bilateral CVS: S1,S2,RRR GI: soft, non tender, non distended Neuro: motor grossly intact Psych: appropriate affect Objective Data Current Medications Generic Name Dose Route Start Last Admin Trade Name Freq PRN Reason Stop Dose Admin Acetaminophen 650 mg 08/27/20 00:43 Acetaminophen Supp 650 Mg Supp.Rect [place] Q6H PRN Pain, Mild (Pain Scale 1-3) Aspirin 81 mg 08/27/20 09:00 08/30/20 07:55 Aspirin 81 Mg Tab.Chew PO 81 mg DAILY [facility] Administration Atorvastatin Calcium 80 mg 08/28/20 21:00 08/29/20 22:24 Atorvastatin Calcium 80 Mg Tablet PO 80 mg BEDTIME [facility] Administration Hydralazine HCl 50 mg 08/30/20 09:00 08/30/20 08:00 Hydralazine Hcl 50 Mg Tablet PO 50 mg TID [facility] Administration Protocol Hydrochlorothiazide 25 mg 08/27/20 09:00 08/30/20 07:55 Hydrochlorothiazide 25 Mg Tablet PO 25 mg DAILY [facility] Administration Protocol Insulin Human Lispro 0 unit 08/27/20 07:30 08/30/20 07:51 Insulin Lispro 100 Unit/Ml 3 Ml Vial SUBCUT Not Given QIDACHS [facility] Protocol Lorazepam 1 mg 08/27/20 00:48 Lorazepam 1 Mg Tablet PO BEDTIME PRN Anxiety Nifedipine 60 mg 08/30/20 09:00 08/30/20 08:00 Nifedipine Er 60 Mg Tab.Er.24 PO 60 mg BID [facility] Administration Protocol Ondansetron HCl 4 mg 08/30/20 08:10 Ondansetron Hcl 4 Mg/2 Ml Vial IVPUSH Q6H PRN Nausea Sodium Chloride 3 ml 08/27/20 08:00 08/30/20 07:55 0.9 % Sodium Chloride Flush 3 Ml Syringe IVFLUSH 3 ml QSHIFT [facility] Administration Labs CBC & Chem 7: 08/29/20 05:47 08/29/20 05:47 Assessment and Plan (1) Hypertensive urgency: Status: Acute Assessment and Plan: 75-year-old female with a past medical history of hypertension, hyperlipidemia, CAD, history of [place], history of pulmonary edema, history of bilateral renal artery stenosis, hypertension-poorly controlled, noncompliant presented with nausea vomiting/fall. fell again 2/3 early AM, found to have cerebellar cva acute cerebellar CVA MRI with large cellebelar stroke plan for acute rehab awating auth continue asa, statin, bp control DM insulin HTN non compliant with meds slowly restarting hydralazine, nifedipine, lisinopril, hctz, monitor closely CKD III elevated since may 2020, stable CAD asa, statin bradycardia metoprolol on hold
[2020-08-30 12:17] LABS: Glucose, Whole Blood 106 mg/dL (60-115)
--- NOTE | 2020-08-30 12:43 | PM.DS ---
DS: Providers Provider Date of Service: 08/30/20 Date of admission: 08/27/20 00:43 Primary care physician: COREY GarciaPHuang Consults: 08/27/20 00:45 Consult to Cardiology Routine Consulting Provider: Nura Martínez Reason for consultation: trop elevated Has provider been notified: Yes 08/28/20 04:12 Consult to Neurology Stat Consulting Provider: [facility] Reason for consultation: acute cerebellar stroke Has provider been notified: Yes DS: Diagnosis Discharge Diagnosis (1) Hypertensive urgency: Status: Acute (2) Cerebellar infarct: Status: Acute DS: Medications Discharge Medications Home Medications: Home Medications Medication Instructions Recorded Confirmed lorazepam [Ativan] 1 mg PO BEDTIME PRN 06/01/20 08/27/20 Previous Rx's Medication Instructions Recorded aspirin 81 mg PO DAILY #30 tab 07/16/20 atorvastatin 1 tab PO BEDTIME #30 tab 07/16/20 hydralazine 50 mg PO TID #90 tab 07/16/20 hydrochlorothiazide 25 mg PO DAILY #30 tab 07/16/20 lisinopril 40 mg PO DAILY #90 tab 07/16/20 metoprolol tartrate 1 tab PO BID #60 tab 07/16/20 nifedipine 1 tab PO Q12H #60 tab 07/16/20 DS: Summary Hospital Course Hospital Course: Patient was admitted for hypertensive urgency due to noncompliance. She was then noted to have fall and CT head showed cerebellar infarct. Timing is likely prior to admission. No tPA was given due to unclear timing. She was seen by Neurology who recommended continuing antihypertensives, antiplatelet, statin. She will be discharged to acute rehab. Time Spent with Patient Time attestation: Total time spent providing and/or coordinating discharge services: Discharge coordination time: Greater than 30 minutes Quality: Stroke Pt Provided Written Stroke Discharge Instructions: Patient given written information Physical Exam Vital Signs: Vital Signs: Last Vital Signs Temp 97.1 F 08/30/20 11:06 Pulse 90 08/30/20 11:06 Resp 15 08/30/20 11:06 BP 192/99 H 08/30/20 11:06 Pulse Ox 98 08/30/20 11:06 Body Mass Index 24.9 General: AO X 3, no acute distress, periorbital echymosis Resp: CTA bilateral CVS: S1,S2,RRR GI: soft, non tender, non distended Neuro: motor grossly intact Psych: appropriate affect DS: Data Data Completed and Pending Completed studies during hospitalization [Text1]: Procedures Plain Radiography of Bilateral Renal Arteries using Low Osmolar Contrast (06/03/20) Labs on day of discharge: Laboratory Tests 08/26/20 08/26/20 08/26/20 17:34 18:58 18:58 WBC 11.9 H RBC 5.11 D Hgb 15.8 D Hct 46.3 D MCV 90.6 MCH 30.9 MCHC 34.1 RDW 12.5 Plt Count 156 L MPV 10.8 Immature Gran % (Auto) 0.3 Neut % (Auto) 91.3 H Lymph % (Auto) 6.5 L Routt % (Auto) 1.5 L Eos % (Auto) 0.2 Baso % (Auto) 0.2 Lymph # (Auto) 0.8 L Routt # (Auto) 0.2 Eos # (Auto) 0.0 Baso # (Auto) 0.0 Abs Immat Gran (auto) 0.03 Absolute Neuts (auto) 10.9 H Absolute Nucleated RBC 0.000 Nucleated RBC % (auto) 0.0 Smear Tech's Comments VERIFIED Sodium Potassium Chloride Carbon Dioxide Anion Gap BUN Creatinine Estim Creat Clear Calc Estimated GFR POC Glucose 217 H Random Glucose Fasting Glucose Calcium Total Bilirubin AST ALT Alkaline Phosphatase Troponin I High Sens 216.0 H D Total Protein Albumin Triglycerides Cholesterol LDL Cholesterol, Calc HDL Cholesterol Lipase Urine Color Urine Appearance Urine pH Ur Specific [place] Urine Protein Urine Glucose (UA) Urine Ketones Urine Blood Urine Nitrite Ur Leukocyte Esterase Urine RBC Urine WBC Ur Squamous Epith Cells Urine Bacteria COVID-19 (CHELITA) COVID-19 Clin Com 08/26/20 08/26/20 08/26/20 19:35 22:44 22:46 WBC RBC Hgb Hct MCV MCH MCHC RDW Plt Count MPV Immature Gran % (Auto) Neut % (Auto) Lymph % (Auto) Routt % (Auto) Eos % (Auto) Baso % (Auto) Lymph # (Auto) Routt # (Auto) Eos # (Auto) Baso # (Auto) Abs Immat Gran (auto) Absolute Neuts (auto) Absolute Nucleated RBC Nucleated RBC % (auto) Smear Tech's Comments Sodium 137 Potassium 4.0 Chloride 103 Carbon Dioxide 23 Anion Gap 15 BUN 17 H Creatinine 1.66 H Estim Creat Clear Calc 41.9 Estimated GFR 30 POC Glucose Random Glucose 220 H D Fasting Glucose Calcium 8.4 Total Bilirubin 0.9 AST 23 D ALT 17 Alkaline Phosphatase 111 D Troponin I High Sens Total Protein 6.2 L D Albumin 3.8 Triglycerides Cholesterol LDL Cholesterol, Calc HDL Cholesterol Lipase 6 L Urine Color YELLOW Urine Appearance CLEAR Urine pH 6.5 Ur Specific [place] 1.020 Urine Protein 2+ H Urine Glucose (UA) 250 H Urine Ketones NEG Urine Blood TRACE Urine Nitrite NEG Ur Leukocyte Esterase NEG Urine RBC 0-2 Urine WBC 0 Ur Squamous Epith Cells TRACE Urine Bacteria TRACE COVID-19 (CHELITA) Negative COVID-19 Clin Com See Note 08/26/20 08/27/20 08/27/20 22:55 01:25 03:42 WBC RBC Hgb Hct MCV MCH MCHC RDW Plt Count MPV Immature Gran % (Auto) Neut % (Auto) Lymph % (Auto) Routt % (Auto) Eos % (Auto) Baso % (Auto) Lymph # (Auto) Routt # (Auto) Eos # (Auto) Baso # (Auto) Abs Immat Gran (auto) Absolute Neuts (auto) Absolute Nucleated RBC Nucleated RBC % (auto) Smear Tech's Comments Sodium Potassium Chloride Carbon Dioxide Anion Gap BUN Creatinine Estim Creat Clear Calc Estimated GFR POC Glucose 174 H Random Glucose Fasting Glucose Calcium Total Bilirubin AST ALT Alkaline Phosphatase Troponin I High Sens 238.3 H Total Protein Albumin Triglycerides Cholesterol LDL Cholesterol, Calc HDL Cholesterol Lipase Urine Color YELLOW Urine Appearance CLEAR Urine pH 7.0 Ur Specific [place] 1.025 Urine Protein 2+ H Urine Glucose (UA) 250 H Urine Ketones NEG Urine Blood TRACE Urine Nitrite NEG Ur Leukocyte Esterase NEG Urine RBC 0-2 Urine WBC 0-2 Ur Squamous Epith Cells TRACE Urine Bacteria NONE COVID-19 (CHELITA) COVID-19 Clin Com 08/27/20 08/27/20 08/27/20 07:37 11:14 20:12 WBC RBC Hgb Hct MCV MCH MCHC RDW Plt Count MPV Immature Gran % (Auto) Neut % (Auto) Lymph % (Auto) Routt % (Auto) Eos % (Auto) Baso % (Auto) Lymph # (Auto) Routt # (Auto) Eos # (Auto) Baso # (Auto) Abs Immat Gran (auto) Absolute Neuts (auto) Absolute Nucleated RBC Nucleated RBC % (auto) Smear Tech's Comments Sodium Potassium Chloride Carbon Dioxide Anion Gap BUN Creatinine Estim Creat Clear Calc Estimated GFR POC Glucose 107 143 H 125 H Random Glucose Fasting Glucose Calcium Total Bilirubin AST ALT Alkaline Phosphatase Troponin I High Sens Total Protein Albumin Triglycerides Cholesterol LDL Cholesterol, Calc HDL Cholesterol Lipase Urine Color Urine Appearance Urine pH Ur Specific [place] Urine Protein Urine Glucose (UA) Urine Ketones Urine Blood Urine Nitrite Ur Leukocyte Esterase Urine RBC Urine WBC Ur Squamous Epith Cells Urine Bacteria COVID-19 (CHELITA) COVID-19 [employer] 08/28/20 08/28/20 08/28/20 04:52 04:52 07:57 WBC 12.0 H RBC 4.64 Hgb 14.5 Hct 43.1 MCV 92.9 MCH 31.3 MCHC 33.6 RDW 13.1 Plt Count 159 L MPV 10.8 Immature Gran % (Auto) 0.5 H Neut % (Auto) 88.0 H Lymph % (Auto) 8.0 L Routt % (Auto) 2.7 Eos % (Auto) 0.6 Baso % (Auto) 0.2 Lymph # (Auto) 1.0 L Routt # (Auto) 0.3 Eos # (Auto) 0.1 Baso # (Auto) 0.0 Abs Immat Gran (auto) 0.06 H Absolute Neuts (auto) 10.6 H Absolute Nucleated RBC 0.000 Nucleated RBC % (auto) 0.0 Smear Tech's Comments Sodium 137 Potassium 3.8 Chloride 104 Carbon Dioxide 21 L Anion Gap 16 BUN 23 H Creatinine 1.79 H Estim Creat Clear Calc 38.9 Estimated GFR 28 POC Glucose 121 H Random Glucose 150 H Fasting Glucose Calcium 8.7 Total Bilirubin AST ALT Alkaline Phosphatase Troponin I High Sens Total Protein Albumin Triglycerides Cholesterol LDL Cholesterol, Calc HDL Cholesterol Lipase Urine Color Urine Appearance Urine pH Ur Specific [place] Urine Protein Urine Glucose (UA) Urine Ketones Urine Blood Urine Nitrite Ur Leukocyte Esterase Urine RBC Urine WBC Ur Squamous Epith Cells Urine Bacteria COVID-19 (CHELITA) COVID-19 [employer] 08/28/20 08/28/20 08/28/20 11:19 13:11 16:42 WBC RBC Hgb Hct MCV MCH MCHC RDW Plt Count MPV Immature Gran % (Auto) Neut % (Auto) Lymph % (Auto) Routt % (Auto) Eos % (Auto) Baso % (Auto) Lymph # (Auto) Routt # (Auto) Eos # (Auto) Baso # (Auto) Abs Immat Gran (auto) Absolute Neuts (auto) Absolute Nucleated RBC Nucleated RBC % (auto) Smear Tech's Comments Sodium Potassium Chloride Carbon Dioxide Anion Gap BUN Creatinine Estim Creat Clear Calc Estimated GFR POC Glucose 209 H 160 H 78 Random Glucose Fasting Glucose Calcium Total Bilirubin AST ALT Alkaline Phosphatase Troponin I High Sens Total Protein Albumin Triglycerides Cholesterol LDL Cholesterol, Calc HDL Cholesterol Lipase Urine Color Urine Appearance Urine pH Ur Specific [place] Urine Protein Urine Glucose (UA) Urine Ketones Urine Blood Urine Nitrite Ur Leukocyte Esterase Urine RBC Urine WBC Ur Squamous Epith Cells Urine Bacteria COVID-19 (CHELITA) COVID-19 [employer] 08/28/20 08/28/20 08/28/20 17:26 17:55 20:17 WBC RBC Hgb Hct MCV MCH MCHC RDW Plt Count MPV Immature Gran % (Auto) Neut % (Auto) Lymph % (Auto) Routt % (Auto) Eos % (Auto) Baso % (Auto) Lymph # (Auto) Routt # (Auto) Eos # (Auto) Baso # (Auto) Abs Immat Gran (auto) Absolute Neuts (auto) Absolute Nucleated RBC Nucleated RBC % (auto) Smear Tech's Comments Sodium Potassium Chloride Carbon Dioxide Anion Gap BUN Creatinine Estim Creat Clear Calc Estimated GFR POC Glucose 79 102 136 H Random Glucose Fasting Glucose Calcium Total Bilirubin AST ALT Alkaline Phosphatase Troponin I High Sens Total Protein Albumin Triglycerides Cholesterol LDL Cholesterol, Calc HDL Cholesterol Lipase Urine Color Urine Appearance Urine pH Ur Specific [place] Urine Protein Urine Glucose (UA) Urine Ketones Urine Blood Urine Nitrite Ur Leukocyte Esterase Urine RBC Urine WBC Ur Squamous Epith Cells Urine Bacteria COVID-19 (CHELITA) COVID-19 [employer] 08/29/20 08/29/20 08/29/20 05:47 05:47 07:32 WBC 9.3 RBC 4.75 Hgb 14.6 Hct 43.0 MCV 90.5 MCH 30.7 MCHC 34.0 RDW 12.5 Plt Count 161 MPV 10.7 Immature Gran % (Auto) 0.3 Neut % (Auto) 77.9 H Lymph % (Auto) 16.1 L Routt % (Auto) 4.3 Eos % (Auto) 1.1 Baso % (Auto) 0.3 Lymph # (Auto) 1.5 Routt # (Auto) 0.4 Eos # (Auto) 0.1 Baso # (Auto) 0.0 Abs Immat Gran (auto) 0.03 Absolute Neuts (auto) 7.3 Absolute Nucleated RBC 0.000 Nucleated RBC % (auto) 0.0 Smear Tech's Comments Sodium 136 Potassium 3.6 Chloride 98 Carbon Dioxide 28 Anion Gap 14 BUN 25 H Creatinine 1.65 H Estim Creat Clear Calc 27.5 Estimated GFR 30 POC Glucose 90 Random Glucose Fasting Glucose 96 Calcium 8.4 Total Bilirubin AST ALT Alkaline Phosphatase Troponin I High Sens Total Protein Albumin Triglycerides 131 Cholesterol 133 LDL Cholesterol, Calc 51 HDL Cholesterol 56 Lipase Urine Color Urine Appearance Urine pH Ur Specific [place] Urine Protein Urine Glucose (UA) Urine Ketones Urine Blood Urine Nitrite Ur Leukocyte Esterase Urine RBC Urine WBC Ur Squamous Epith Cells Urine Bacteria COVID-19 (CHELITA) [email or web address] 08/29/20 08/29/20 08/29/20 11:09 16:17 20:14 WBC RBC Hgb Hct MCV MCH MCHC RDW Plt Count MPV Immature Gran % (Auto) Neut % (Auto) Lymph % (Auto) Routt % (Auto) Eos % (Auto) Baso % (Auto) Lymph # (Auto) Routt # (Auto) Eos # (Auto) Baso # (Auto) Abs Immat Gran (auto) Absolute Neuts (auto) Absolute Nucleated RBC Nucleated RBC % (auto) Smear Tech's Comments Sodium Potassium Chloride Carbon Dioxide Anion Gap BUN Creatinine Estim Creat Clear Calc Estimated GFR POC Glucose 185 H 98 124 H Random Glucose Fasting Glucose Calcium Total Bilirubin AST ALT Alkaline Phosphatase Troponin I High Sens Total Protein Albumin Triglycerides Cholesterol LDL Cholesterol, Calc HDL Cholesterol Lipase Urine Color Urine Appearance Urine pH Ur Specific [place] Urine Protein Urine Glucose (UA) Urine Ketones Urine Blood Urine Nitrite Ur Leukocyte Esterase Urine RBC Urine WBC Ur Squamous Epith Cells Urine Bacteria COVID-19 (CHELITA) COVID-19 [employer] 08/30/20 08/30/20 07:49 11:04 WBC RBC Hgb Hct MCV MCH MCHC RDW Plt Count MPV Immature Gran % (Auto) Neut % (Auto) Lymph % (Auto) Routt % (Auto) Eos % (Auto) Baso % (Auto) Lymph # (Auto) Routt # (Auto) Eos # (Auto) Baso # (Auto) Abs Immat Gran (auto) Absolute Neuts (auto) Absolute Nucleated RBC Nucleated RBC % (auto) Smear Tech's Comments Sodium Potassium Chloride Carbon Dioxide Anion Gap BUN Creatinine Estim Creat Clear Calc Estimated GFR POC Glucose 104 106 Random Glucose Fasting Glucose Calcium Total Bilirubin AST ALT Alkaline Phosphatase Troponin I High Sens Total Protein Albumin Triglycerides Cholesterol LDL Cholesterol, Calc HDL Cholesterol Lipase Urine Color Urine Appearance Urine pH Ur Specific [place] Urine Protein Urine Glucose (UA) Urine Ketones Urine Blood Urine Nitrite Ur Leukocyte Esterase Urine RBC Urine WBC Ur Squamous Epith Cells Urine Bacteria COVID-19 (CHELITA) COVID-19 Clin Com Discharge Plan Discharge Patient Disposition: Xfer Inpatient Rehab Fac Referrals: [facility] [Outside] Jerry Hart, [employer] [Primary Care Provider] - Discharge Medications: Continued lorazepam [Ativan] 1 mg Tablet 1 mg PO BEDTIME PRN (Reason: Anxiety) RF: 0 aspirin 81 mg Tablet,Chewable 81 mg PO DAILY Qty: 30 RF: 0 hydrochlorothiazide 25 mg Tablet 25 mg PO DAILY Qty: 30 RF: 2 atorvastatin 20 mg tablet 1 tab PO BEDTIME Qty: 30 RF: 2 nifedipine 60 mg tablet extended release 24hr 1 tab PO Q12H Qty: 60 RF: 2 metoprolol tartrate 50 mg tablet 1 tab PO BID Qty: 60 RF: 2 hydralazine 50 mg Tablet 50 mg PO TID Qty: 90 RF: 2 lisinopril 40 mg tablet 40 mg PO DAILY Qty: 90 RF: 2 Discharge Orders: Discharge Order (Routine); Ordered 08/30/20 Ordered By: Angus Pacheco Activity on Discharge: As tolerated Stand Alone Forms: Patient Portal Discharge page Care Plan Goals: prevent strokes Health Concerns: cva Plan of Treatment: complaince with meds
--- NOTE | 2020-08-30 12:56 | MHC.CM.PN ---
Patient has been medically cleared for dc to Acute Rehab today. Patient will be dc to [facility] today at 4 PM, via [facility]. Patient is aware of and in agreement with the dc plan and second IMM was addressed with her (Patient received original and a copy has been placed on the chart). CM has attempted X2 to reach Daughter/Pia at [phone], to inform her of the dc plan but was unable to do so and there was not an opportunity to leave a message.
[2020-08-30 13:33] LABS: COVID-19 Test Negative (Negative)
[2020-08-30] MEDS: hydrALAZINE HCl 20 MG/ML VIAL 10 MG IVPUSH (16:21)
== END 2020-08-30 17:00 | DRG 304 ==
LOC: HO.ED 08-27 00:27 → HO.EDOVER 08-27 01:23 → HO.S3 08-27 16:46
PROVIDERS: Student in an Organized Health Care Education/Training Program; Admitting Provider Hospitalist; Emergency Provider Emergency Medicine Emergency Medical Services; PCP Nurse Practitioner Family; Visit Provider Internal Medicine
DX: I16.1 Hypertensive emergency (principal); I63.89 Other cerebral infarction; F17.210 Nicotine dependence, cigarettes, uncomplicated; Z71.6 Tobacco abuse counseling; I25.10 Atherosclerotic heart disease of native coronary artery without angina pectoris; S61.512A Laceration without foreign body of left wrist, initial encounter; W18.30XA Fall on same level, unspecified, initial encounter; Z91.81 History of falling; R29.6 Repeated falls; I25.2 Old myocardial infarction; I12.9 Hypertensive chronic kidney disease with stage 1 through stage 4 chronic kidney disease, or unspecified chronic kidney disease; E11.22 Type 2 diabetes mellitus with diabetic chronic kidney disease; N18.30 Chronic kidney disease, stage 3 unspecified; Y93.9 Activity, unspecified; Y92.009 Unspecified place in unspecified non-institutional (private) residence as the place of occurrence of the external cause; Y99.9 Unspecified external cause status; Z20.822 Contact with and (suspected) exposure to COVID-19; Z91.19 Patient's noncompliance with other medical treatment and regimen; Z79.82 Long term (current) use of aspirin; Z79.899 Other long term (current) drug therapy
CPT/HCPCS: 36415; 70450; 70551; 72125; 74176; 80048; 80053; 80061; 81001; 81003; 82947; 83690; 84484; 85025; 87635; 92526; 92610; 93005; 93306; 96361; 96374; 96375; 96376; 97112; 97116; 97162; 97166; 97535; 99285; 99291; J2405

== ENCOUNTER 2021-02-14 12:24 | Emergency (ER) | payer MEDICARE, SELFPAY ==
--- NOTE | 2021-02-14 | ECG_ITS ---
Test Reason : FALL/DIZZY Blood Pressure : / mmHG Vent. Rate : 052 BPM Atrial Rate : 059 BPM P-R Int : 148 ms QRS Dur : 134 ms QT Int : 450 ms P-R-T Axes : 066 -27 059 degrees QTc Int : 418 ms Sinus bradycardia with Blocked Premature atrial complexes Right bundle branch block Abnormal ECG When compared with ECG of 26-AUG-2020 19:16, Premature atrial complexes are now Present Vent. rate has decreased BY 38 BPM QT has shortened Referred By: Generic ED Physician Electronically Signed By:FABIEN BLOOM MD
--- NOTE | ~2021-02-14 | XR_ITS ---
EXAMINATION: XR CHEST CLINICAL INFORMATION: Dizziness COMPARISON: Chest radiographs 04/30/2020, 03/11/2020 TECHNIQUE: Upright AP and lateral views of the chest are obtained. FINDINGS: There has been prior median sternotomy with mediastinal clips and sternotomy wires similar to prior studies. The heart is normal in size. The vascularity is normal. The lungs are clear. There is no airspace consolidation or effusion. No pleural reaction. The hilar and mediastinal contours are unremarkable. XR/XR chest 2V IMPRESSION: Prior median sternotomy. No acute intrathoracic disease.
[2021-02-14 12:39] VITALS: BP 128/86; BP 137/65; PULSE 107; PULSE 62; RESP 22; TEMP 36.7; O2SAT 99; BMI 22.4
--- NOTE | 2021-02-14 13:14 | ED_ITS ---
HPI - Dizziness General Chief Complaint: Dizziness Stated Complaint: dizzy/unsteady gait Time Seen by Provider: 02/14/21 13:04 Source: patient Mode of arrival: EMS Limitations: no limitations History of Present Illness HPI Narrative: Patient is a 75-year-old female with a past medical history ofDM2, HTN, CAD and sinus bradycardia who presents with 1 week of on and off dizziness/unsteady on her feet. Patient states she was walking down the road when she felt dizzy an sat down. She states she was in front of a store and that the retail store assistant called 911 because she was too dizzy to stand up. She denies being more dizzy with positional changes. She denies hitting her head or losing consciousness. She states she feels unsteady on her feet, she does not feel like the room is spinning. She states that she took all of her normal medications today, she has been eating and drinking normally. She denies any chest pain, shortness of breath, allergies, changes in her bladder or bowels, fevers, headache. She denies being on a blood thinner. Related Data Previous Rx's Medication Instructions Recorded lorazepam 1 mg tablet 1 mg PO BID PRN 30 Days #60 tab 01/02/21 aspirin 81 mg chewable tablet 81 mg PO DAILY 90 Days #90 tab 01/18/21 atorvastatin 80 mg tablet 80 mg PO BEDTIME 90 Days #90 tab 01/18/21 cholecalciferol (vitamin D3) 50 50 mcg PO DAILY 90 Days #90 cap 01/20/21 mcg (2,000 unit) capsule cyanocobalamin (vitamin B-12) 1,000 mcg PO DAILY 90 Days #90 cap 01/20/21 1,000 mcg capsule docusate sodium 100 mg capsule 200 mg PO DAILY 90 Days #180 cap 01/20/21 lisinopril 40 mg tablet 40 mg PO DAILY #90 tab 01/20/21 nifedipine 60 mg tablet,extended 60 mg PO DAILY 90 Days #90 tab 01/20/21 release 24 hr ondansetron HCl 4 mg tablet 4 mg PO Q6H PRN 30 Days #120 tab 01/20/21 sennosides 8.6 mg tablet 17.2 mg PO BEDTIME 90 Days #180 tab 01/20/21 thiamine HCl (vitamin B1) 100 mg 100 mg PO DAILY 90 Days #90 tab 01/20/21 tablet cefuroxime axetil 500 mg PO Q12H 7 Days #14 tab 02/14/21 Allergies Allergy/AdvReac Type Severity Reaction Status Date / Time No Known Allergies Allergy Verified 01/02/21 10:14 Review of Systems 2 Review of Systems: Yes all other systems are reviewed and are negative [facility] Past Medical History Medical History Bradycardia, sinus CAD (coronary artery disease) Colonoscopy refused Diabetic neuropathy, type II diabetes mellitus Fall Hypertension Mammogram declined Noncompliance Surgical History Aortocoronary bypass status Social History Social History Household Members: Children Household Members Other:: 2 Housing: House Do you presently have visiting nurse or other home services: No Alcohol intake: never Patient Tobacco Use Status: Current everyday Tobacco user Cigarettes Per Day: 1 Years Smoked: 60 Second Hand Smoke Exposure: Yes Use of substances other than those prescribed or required for medical reasons: No Advance Directives: Yes Advance Directives on File: Yes Advance Directives Date on File: 08/27/20 service: No Current occupational status: retired Physical Exam Vital Signs: Vital Signs: Last Vital Signs Temp 98.1 F 02/14/21 12:39 Pulse 40 L 02/14/21 14:13 Resp 15 02/14/21 14:13 BP 153/63 H 02/14/21 14:13 Pulse Ox 99 02/14/21 14:13 Body Mass Index 22.4 Const: General: cooperative, healthy appearing, comfortable, no acute distress and well developed Orientation/consciousness: patient oriented x3 Limitations: no limitations HENMT: Head: Yes normal to inspection Ears: hearing grossly normal bilaterally, external ears normal and TM's normal bilaterally General nose exam: Normal external nose present Face and sinus: Yes normal facial exam and Yes face symmetric Mouth: Normal oral and palatal mucosa present, lip normal and tongue normal Eyes: General: appearance normal, both eyes and all related structures Visual Ybarra: normal visual ybarra by confrontation Pupils: Equal, round and reactive pupils present EOM: EOMs intact bilaterally Neck: Neck: Yes normal visual inspection and Yes full ROM Resp: Effort & Inspection: normal respiratory effort and able to speak in complete sentences Auscultation: clear to auscultation bilaterally Cardio: Rate: regular rate Rhythm: regular rhythm Heart sounds: normal S1 and S2 GI: Inspection: Yes normal to inspection Palpation (GI): Soft to palpation and nontender Skin: General skin exam: no rashes or lesions noted Neuro: General: patient oriented x3 Cranial nerves: Yes Equal, round and reactive pupils present Extrem: General: Yes normal to inspection Course Course Course Narrative: Patient is a 75-year-old female with a past medical history ofDM2, HTN, CAD and sinus bradycardia who presents with 1 week of on and off dizziness/unsteady on her feet. VSS, patient is well-appearing, physical exam was unremarkable. Will get labs, orthostatics, EKG and reassess. Reevaluation(s) Reevaluation #1: UA positive for UTI, all labs at patient's baseline except for her liver enzymes are a tiny bit elevated. Patient also has slightly hyperten sive, she does states she took all of her normal medications today. Advised patient to follow up with her healthcare provider because she may need a medication adjustment. Her heart rate dipped into the 40s and 50s, she was asymptomatic to these bradycardic events. She does have sinus bradycardia in her history and her EKG today was sinus bradycardia iwht RBBB (existing), trop negative. MDM - Dizziness Lab Data Result diagrams: 02/14/21 14:09 02/14/21 14:09 Labs: Lab Results 02/14/21 02/14/21 02/14/21 Range/Units 13:32 13:32 14:09 WBC 8.9 (4.8-10.8) X10*3/uL RBC 4.05 L (4.20-5.50) X10*6/uL Hgb 12.6 (12.0-16.0) g/dl Hct 37.4 (37-47) % MCV 92.3 (80-98) fL MCH 31.1 (27.0-33.0) pg MCHC 33.7 (31.0-35.0) g/dl RDW 13.0 (11.0-16.0) % Plt Count 153 L (160-400) X10*3/uL MPV 10.6 (9.4-12.3) fL Immature Gran % (Auto) 0.2 (0.0-0.4) % Neut % (Auto) 70.9 (45-73) % Lymph % (Auto) 20.1 (20-40) % [place] % (Auto) 4.9 (2-11) % Eos % (Auto) 3.6 (0-4) % Baso % (Auto) 0.3 (0-2) % Lymph # (Auto) 1.8 (1.2-4.9) X10*3/uL [place] # (Auto) 0.4 (0.1-1.2) X10*3/uL Eos # (Auto) 0.3 (0.0-0.4) X10*3/uL Baso # (Auto) 0.0 (0.0-0.2) X10*3/uL Abs Immat Gran (auto) 0.02 (0.00-0.03) X10*3/uL Absolute Neuts (auto) 6.3 (2.0-8.3) X10*3/uL Absolute Nucleated RBC 0.000 (0.0-0.012) X10*3/uL Nucleated RBC % (auto) 0.0 (0.0-0.2) /100WBC PT (9.9-13.0) SEC INR (0.9-1.1) APTT (24.1-38.0) SEC Sodium (135-145) mmol/L Potassium (3.3-5.1) mmol/L Chloride (96-108) mmol/L Carbon Dioxide (22-29) mmol/L Anion Gap (12-20) BUN (9-16) mg/dL Creatinine (0.5-1.4) mg/dL Estim Creat Clear Calc Estimated GFR Random Glucose (60-115) mg/dL Calcium (8.4-10.2) mg/dL Total Bilirubin (0.0-1.0) mg/dL AST (5-31) U/L ALT (0-31) U/L Alkaline Phosphatase (39-117) U/L Troponin I High Sens (<3.5-17.0) ng/L Total Protein (6.5-8.0) g/dL Albumin (3.5-5.0) g/dL Lipase (8-78) U/L Urine Color YELLOW Urine Appearance CLOUDY Urine pH 6.0 (5.0-8.0) Ur Specific [place] 1.025 (1.005-1.025) Urine Protein 1+ H (NEG-TRACE) MG/DL Urine Glucose (UA) NEG (NEG) MG/DL Urine Ketones 5 (NEG) MG/DL Urine Blood TRACE (NEG) Urine Nitrite POS H (NEG) Ur Leukocyte Esterase 2+ H (NEG) Urine RBC 0-2 (0) /HPF Urine WBC 30-49 H (0-4) /HPF Ur Squamous Epith Cells 2+ /LPF Urine Bacteria 4+ /LPF Urine Opiates Screen Not Detected (Not Detect) Ur Barbiturates Screen Not Detected (Not Detect) Ur Phencyclidine Scrn Not Detected (Not Detect) Ur Amphetamines Screen Not Detected (Not Detect) U Benzodiazepines Scrn Not Detected (Not Detect) Urine Cocaine Screen Not Detected (Not Detect) U Marijuana (THC) Screen Not Detected (Not Detect) 02/14/21 02/14/21 02/14/21 Range/Units 14:09 14:09 14:09 WBC (4.8-10.8) X10*3/uL RBC (4.20-5.50) X10*6/uL Hgb (12.0-16.0) g/dl Hct (37-47) % MCV (80-98) fL MCH (27.0-33.0) pg MCHC (31.0-35.0) g/dl RDW (11.0-16.0) % Plt Count (160-400) X10*3/uL MPV (9.4-12.3) fL Immature Gran % (Auto) (0.0-0.4) % Neut % (Auto) (45-73) % Lymph % (Auto) (20-40) % [place] % (Auto) (2-11) % Eos % (Auto) (0-4) % Baso % (Auto) (0-2) % Lymph # (Auto) (1.2-4.9) X10*3/uL [place] # (Auto) (0.1-1.2) X10*3/uL Eos # (Auto) (0.0-0.4) X10*3/uL Baso # (Auto) (0.0-0.2) X10*3/uL Abs Immat Gran (auto) (0.00-0.03) X10*3/uL Absolute Neuts (auto) (2.0-8.3) X10*3/uL Absolute Nucleated RBC (0.0-0.012) X10*3/uL Nucleated RBC % (auto) (0.0-0.2) /100WBC PT 11.4 (9.9-13.0) SEC INR 1.0 (0.9-1.1) APTT 34.4 (24.1-38.0) SEC Sodium 143 (135-145) mmol/L Potassium 4.5 D (3.3-5.1) mmol/L Chloride 113 H (96-108) mmol/L Carbon Dioxide 23 (22-29) mmol/L Anion Gap 12 (12-20) BUN 21 H (9-16) mg/dL Creatinine 1.53 H (0.5-1.4) mg/dL Estim Creat Clear Calc 26.3 Estimated GFR 33 Random Glucose 138 H (60-115) mg/dL Calcium 8.9 (8.4-10.2) mg/dL Total Bilirubin 0.6 (0.0-1.0) mg/dL AST 35 H D (5-31) U/L ALT 45 H (0-31) U/L Alkaline Phosphatase 126 H (39-117) U/L Troponin I High Sens 17.0 (<3.5-17.0) ng/L Total Protein 6.4 L (6.5-8.0) g/dL Albumin 3.9 (3.5-5.0) g/dL Lipase 21 (8-78) U/L Urine Color Urine Appearance Urine pH (5.0-8.0) Ur Specific [place] (1.005-1.025) Urine Protein (NEG-TRACE) MG/DL Urine Glucose (UA) (NEG) MG/DL Urine Ketones (NEG) MG/DL Urine Blood (NEG) Urine Nitrite (NEG) Ur Leukocyte Esterase (NEG) Urine RBC (0) /HPF Urine WBC (0-4) /HPF Ur Squamous Epith Cells /LPF Urine Bacteria /LPF Urine Opiates Screen (Not Detect) Ur Barbiturates Screen (Not Detect) Ur Phencyclidine Scrn (Not Detect) Ur Amphetamines Screen (Not Detect) U Benzodiazepines Scrn (Not Detect) Urine Cocaine Screen (Not Detect) U Marijuana (THC) Screen (Not Detect) Imaging Data Chest x-ray: Attestation: I personally reviewed and interpreted this imaging study as follows: Radiologist's impression: [address] [id number] ReportSigned Patient: Safia Schreiber#: [id number]: 6Acct:[id number]/Sex: 75 / FADM Date: 02/14/21Loc: [email or web address] Dr: Ordering Physician: Meredith Salinas PA-C Date of Service: 02/14/21 Procedure(s): XR chest 2V Accession Number(s): [id number] cc: Meredith Salinas PA-C~ EXAMINATION: XR CHEST CLINICAL INFORMATION: Dizziness COMPARISON: Chest radiographs 04/30/2020, 03/11/2020 TECHNIQUE: Upright AP and lateral views of the chest are obtained. FINDINGS: There has been prior median sternotomy with mediastinal clips and sternotomy wires similar to prior studies. The heart is normal in size. The vascularity is normal. The lungs are clear. There is no airspace consolidation or effusion. No pleural reaction. The hilar and mediastinal contours are unremarkable. XR/XR chest 2V IMPRESSION: Prior median sternotomy. No acute intrathoracic disease. Dictated By:NELSON LEWIS MDSigned By:<Electronically signed by NELSON LEWIS MD in OV>02/14/21 1350 DD/ 1311TD/TT: Turn Out: [facility] Discharge Plan Discharge Clinical Impression: Elevated liver function tests, Elevated blood pressure reading in office with diagnosis of hypertension UTI (urinary tract infection) Qualifiers: Urinary tract infection type: acute cystitis Hematuria presence: without hematuria Qualified Code(s): N30.00 - Acute cystitis without hematuria Patient Disposition: Home, Self-Care Instructions: Urinary Tract Infection in Older Adults (ED) Additional Instructions: Your labs today show that you have a urinary tract infection, I have sent a prescription to your pharmacy. This could have been the cause of your dizziness as UTIs present differently in older people. Your liver labs were also will little bit elevated, it is nothing concerning but I would have your primary care doctor repeat these labs when you are feeling better and a week or 2 to make sure they return to your baseline normal. Prescriptions: New cefuroxime axetil 500 mg tablet 500 mg PO Q12H 7 Days Qty: 14 RF: 0 No Action atorvastatin 80 mg tablet 80 mg PO BEDTIME 90 Days Qty: 90 RF: 2 aspirin 81 mg tablet,chewable 81 mg PO DAILY 90 Days Qty: 90 RF: 1 lisinopril 40 mg tablet 40 mg PO DAILY Qty: 90 RF: 2 nifedipine 60 mg tablet extended release 24hr 60 mg PO DAILY 90 Days Qty: 90 RF: 1 ondansetron HCl 4 mg tablet 4 mg PO Q6H PRN (Reason: nausea and vomiting) 30 Days Qty: 120 RF: 0 sennosides [Senna Laxative] 8.6 mg tablet 17.2 mg PO BEDTIME 90 Days Qty: 180 RF: 1 thiamine HCl (vitamin B1) 100 mg tablet 100 mg PO DAILY 90 Days Qty: 90 RF: 0 cyanocobalamin (vitamin B-12) 1,000 mcg capsule 1,000 mcg PO DAILY 90 Days Qty: 90 RF: 0 cholecalciferol (vitamin D3) 50 mcg (2,000 unit) capsule 50 mcg PO DAILY 90 Days Qty: 90 RF: 0 docusate sodium 100 mg capsule 200 mg PO DAILY 90 Days Qty: 180 RF: 0 lorazepam 1 mg tablet 1 mg PO BID PRN (Reason: anxiety) 30 Days Qty: 60 RF: 1
[2021-02-14 13:37] VITALS: BP 131/63; PULSE 59
[2021-02-14 13:40] VITALS: BP 110/65; PULSE 67
[2021-02-14 13:44] LABS: Glucose Urine UA NEG (NEG); Leukocyte Esterase Urine 2+ (NEG); Nitrite Urine POS (NEG); Specific Gravity - Urine 1.025 (1.005-1.025); UACC Culture Trigger YES; Urine Blood TRACE (NEG); Urine Ketones 5 MG/DL (NEG); Urine Protein 1+ MG/DL (NEG-TRACE)
[2021-02-14 13:45] LABS: Appearance Urine CLOUDY; Color Urine YELLOW
[2021-02-14 13:53] LABS: Bacteria Urine 4+ /LPF; RBC Urine 0-2 /HPF (0); Squamous Epithelial Cell Urine 2+ /LPF; WBC Urine 30-49 /HPF (0-4)
--- NOTE | 2021-02-14 14:11 | PC.NURSE ---
oRTHOSTATIC v/s TAKEN ON PT. ISSUE WITH CHARTING SOFTWARE v/s SUPINE HR 44 B/P 139/55 SITTING HR 60 B/P 131/63 STANDING HR 70 B/P 110/65
[2021-02-14 14:13] VITALS: BP 153/63; PULSE 40; RESP 15; O2SAT 99
[2021-02-14 14:19] LABS: Amphetamine Screen Urine Not Detected (Not Detect); Barbiturates, Urine Not Detected (Not Detect); Benzodiazepines Screen Urine Not Detected (Not Detect); Cannabinoid Screen Urine Not Detected (Not Detect); Cocaine Screen Urine Not Detected (Not Detect); Opiate Screen Urine Not Detected (Not Detect); Phencyclidine Screen Urine Not Detected (Not Detect)
[2021-02-14 14:21] LABS: MANUAL DIFF FLAG NO
--- NOTE | 2021-02-14 14:22 | PC.NURSE ---
PT'S DAUGHTER AND HCP CICI ([phone]) CALLED [facility] AND WAS UPDATED ON PT STATUS.
[2021-02-14 14:23] LABS: Basophils Percent Auto 0.3 % (0-2); Eosinophils Absolute Auto 0.3 X10*3/uL (0.0-0.4); Eosinophils Percent Auto 3.6 % (0-4); Hematocrit 37.4 % (37-47); Hemoglobin 12.6 g/dl (12.0-16.0); Imm Gran Abs Auto 0.02 X10*3/uL (0.00-0.03); Imm Gran Pct Auto 0.2 % (0.0-0.4); Lymphocytes Absolute Auto 1.8 X10*3/uL (1.2-4.9); Lymphocytes Percent Auto 20.1 % (20-40); Mean Corpuscular HGB Conc 33.7 g/dl (31.0-35.0); Mean Corpuscular Hemoglobin 31.1 pg (27.0-33.0); Mean Corpuscular Volume 92.3 fL (80-98); Mean Platelet Volume 10.6 fL (9.4-12.3); Monocytes Absolute Auto 0.4 X10*3/uL (0.1-1.2); Monocytes Percent Auto 4.9 % (2-11); Neutrophils Absolute Auto 6.3 X10*3/uL (2.0-8.3); Neutrophils Percent Auto 70.9 % (45-73); Platelet Count 153 X10*3/uL (160-400); Red Blood Count 4.05 X10*6/uL (4.20-5.50); White Blood Count 8.9 X10*3/uL (4.8-10.8)
[2021-02-14 14:32] LABS: Prothrombin Time 11.4 SEC (9.9-13.0)
[2021-02-14 14:35] LABS: Partial Thromboplastin Time 34.4 SEC (24.1-38.0)
[2021-02-14 14:58] LABS: Alanine Aminotransferase 45 U/L (0-31); Albumin Level 3.9 g/dL (3.5-5.0); Alkaline Phosphatase 126 U/L (39-117); Anion Gap 12 (12-20); Aspartate Amino Transferase 35 U/L (5-31); Bilirubin Total 0.6 mg/dL (0.0-1.0); Blood Urea Nitrogen 21 mg/dL (9-16); Calcium 8.9 mg/dL (8.4-10.2); Carbon Dioxide 23 mmol/L (22-29); Chloride 113 mmol/L (96-108); Creatinine Clr Calc Pharmacy 26.3; Estimated Glomerular Filt Rate 33; Glucose Random 138 mg/dL (60-115); Lipase 21 U/L (8-78); Potassium 4.5 mmol/L (3.3-5.1); Sodium 143 mmol/L (135-145); Total Protein 6.4 g/dL (6.5-8.0)
[2021-02-14 15:10] VITALS: BP 167/68; PULSE 64; RESP 15; O2SAT 100
== END 2021-02-14 15:42 | disposition home or self-care (01) ==
PROVIDERS: Physician Assistant; Emergency Provider Emergency Medicine Emergency Medical Services
DX: N30.00 Acute cystitis without hematuria (principal); R42 Dizziness and giddiness; R79.89 Other specified abnormal findings of blood chemistry; I10 Essential (primary) hypertension; I25.10 Atherosclerotic heart disease of native coronary artery without angina pectoris; F17.210 Nicotine dependence, cigarettes, uncomplicated; Z71.6 Tobacco abuse counseling; Z79.899 Other long term (current) drug therapy
CPT/HCPCS: 36415; 71046; 80053; 80307; 81001; 81003; 83690; 84484; 85025; 85610; 85730; 87086; 87088; 87186; 93005; 99285

== ENCOUNTER 2021-08-08 11:28 | Inpatient (IN) | payer MEDICARE, SELFPAY ==
[2021-08-08 11:48] VITALS: BP 101/63; PULSE 72; RESP 18; TEMP 37.2; O2SAT 100; BMI 23.0
--- NOTE | 2021-08-08 12:38 | ECG_ITS ---
Test Reason : Weakness Blood Pressure : / mmHG Vent. Rate : 061 BPM Atrial Rate : 061 BPM P-R Int : 180 ms QRS Dur : 144 ms QT Int : 438 ms P-R-T Axes : 072 -27 063 degrees QTc Int : 440 ms Normal sinus rhythm Right bundle branch block Abnormal ECG When compared with ECG of 14-FEB-2021 13:00, Premature atrial complexes are no longer Present Referred By: Evelyn Alex Electronically Signed By:YEYO BERNAL
--- NOTE | 2021-08-08 12:39 | ED_ITS ---
HPI - General Adult General Chief complaint: General Medical Stated complaint: not eating diaper rash quest infection weak Time Seen by Provider: 08/08/21 12:28 Source: family Mode of arrival: wheelchair Limitations: altered mental status History of Present Illness HPI narrative: Patient is brought to the emergency room by her daughter. According to the daughter, the patient has not been eating for the last 3 days. Patient lives with her daughter. Usually, patient is able to help care of herself. Over the last week, patient has been gradually declining, but the last 3 days patient has been in bed, seems weaker than usual, refusing to eat. The daughter also reports a new diaper rash, she has been applying Desitin. Patient states that she feels well, has no complaints. However, she is unable to provid e any reliable history at this time. Related Data Home Medications Medication Instructions Recorded Confirmed lisinopril 40 mg tablet 40 mg PO BEDTIME 08/08/21 08/08/21 Previous Rx's Medication Instructions Recorded aspirin 81 mg chewable tablet 81 mg PO DAILY 90 Days #90 tab 01/18/21 atorvastatin 80 mg tablet 80 mg PO BEDTIME 90 Days #90 tab 01/18/21 cholecalciferol (vitamin D3) 50 50 mcg PO DAILY 90 Days #90 cap 01/20/21 mcg (2,000 unit) capsule cyanocobalamin (vitamin B-12) 1,000 mcg PO DAILY 90 Days #90 cap 01/20/21 1,000 mcg capsule thiamine HCl (vitamin B1) 100 mg 100 mg PO DAILY 90 Days #90 tab 01/20/21 tablet nifedipine 60 mg tablet,extended 60 mg PO DAILY 90 Days #90 tab 07/13/21 release 24 hr sennosides 8.6 mg tablet (Senna 17.2 mg PO BEDTIME 90 Days #180 tab 07/13/21 Laxative) Allergies Allergy/AdvReac Type Severity Reaction Status Date / Time No Known Allergies Allergy Verified 01/02/21 10:14 Review of Systems Review of Systems: Family member complaining of patient's rash in buttocks and genital region, generalized weakness, decreased p.o. intake Yes Unobtainable due to mental status PMFSH Past Medical History Medical History (Updated 08/08/21 @ 15:48 by Evelyn Alex MD) Anxiety Bradycardia, sinus CAD (coronary artery disease) Colonoscopy refused CVA (cerebral vascular accident) Diabetic neuropathy, type II diabetes mellitus Fall Hypertension Mammogram declined Noncompliance Surgical History Aortocoronary bypass status Social History Social History Household Members: Children Household Members Other:: 2 Housing: House Do you presently have visiting nurse or other home services: No Alcohol intake: never Patient Tobacco Use Status: Current everyday Tobacco user Cigarettes Per Day: 1 Years Smoked: 60 Second Hand Smoke Exposure: Yes Advance Directives: Yes Advance Directives on File: Yes Advance Directives Date on File: 08/27/20 service: No Current occupational status: retired Physical Exam Vital Signs: Vital Signs: Last Vital Signs Temp 98.9 F 08/08/21 11:48 Pulse 64 08/08/21 15:34 Resp 18 08/08/21 11:48 BP 122/59 L 08/08/21 15:34 Pulse Ox 98 08/08/21 15:34 BMI result Body Mass Index 23.0 Course Course Course Narrative: Patient tested positive for COVID-19. Patient also has a UTI. Patient does not have a fever, blood pressure stable. At this time sepsis is not suspected. Patient is being treated with ceftriaxone. Patient was given p.o. potassium as well. I discussed the patient with Dr. Elizabeth, patient being admitted Medical Decision Making Lab Data Result diagrams: 08/08/21 13:20 08/08/21 13:21 Labs: Lab Results 08/08/21 08/08/21 08/08/21 Range/Units 13:20 13:20 13:21 WBC 4.7 L (4.8-10.8) X10*3/uL RBC 4.03 L (4.20-5.50) X10*6/uL Hgb 12.6 (12.0-16.0) g/dl Hct 36.5 L (37.0-47.0) % MCV 90.6 (80.0-98.0) fL MCH 31.3 (27.0-33.0) pg MCHC 34.5 (31.0-35.0) g/dl RDW 11.9 (11.0-16.0) % Plt Count 108 L (160-400) X10*3/uL MPV 11.2 (9.4-12.3) fL Immature Gran % (Auto) 0.8 H (0.0-0.4) % Neut % (Auto) 68.5 (45-73) % Lymph % (Auto) 21.5 (20-40) % [place] % (Auto) 8.4 (2-11) % Eos % (Auto) 0.6 (0-4) % Baso % (Auto) 0.2 (0-2) % Lymph # (Auto) 1.0 L (1.2-4.9) X10*3/uL [place] # (Auto) 0.4 (0.1-1.2) X10*3/uL Eos # (Auto) 0.0 (0.0-0.4) X10*3/uL Baso # (Auto) 0.0 (0.0-0.2) X10*3/uL Abs Immat Gran (auto) 0.04 H (0.00-0.03) X10*3/uL Absolute Neuts (auto) 3.2 (2.0-8.3) x10*3/uL Absolute Nucleated RBC 0.000 (0.0-0.012) X10*3/uL Nucleated RBC % (auto) 0.0 (0.0-0.2) /100WBC Sodium 137 (135-145) mmol/L Potassium 3.2 L D (3.3-5.1) mmol/L Chloride 107 (96-108) mmol/L Carbon Dioxide 17 L (22-29) mmol/L Anion Gap 16 (12-20) BUN 67 H (9-16) mg/dL Creatinine 3.07 H (0.5-1.4) mg/dL Estim Creat Clear Calc 13.1 Estimated GFR 15 Random Glucose 140 H (60-115) mg/dL Calcium 8.1 L D (8.4-10.2) mg/dL Total Bilirubin 0.6 (0.0-1.0) mg/dL Direct Bilirubin 0.4 (0.0-0.5) mg/dL AST 27 (5-31) U/L ALT 22 (0-31) U/L Alkaline Phosphatase 89 D (39-117) U/L Total Protein 6.1 L (6.5-8.0) g/dL Albumin 3.6 (3.5-5.0) g/dL Urine Color Urine Appearance Urine pH (5.0-8.0) Ur Specific [place] (1.005-1.025) Urine Protein (NEG-TRACE) MG/DL Urine Glucose (UA) (NEG) MG/DL Urine Ketones (NEG) MG/DL Urine Blood (NEG) Urine Nitrite (NEG) Ur Leukocyte Esterase (NEG) Urine RBC (0) /HPF Urine WBC (0-4) /HPF Ur Squamous Epith Cells /LPF Amorphous Sediment /LPF Urine Bacteria /LPF COVID-19 (CHELITA) Positive A (Negative) COVID-19 Clin Com See Note 08/08/21 Range/Units 13:21 WBC (4.8-10.8) X10*3/uL RBC (4.20-5.50) X10*6/uL Hgb (12.0-16.0) g/dl Hct (37.0-47.0) % MCV (80.0-98.0) fL MCH (27.0-33.0) pg MCHC (31.0-35.0) g/dl RDW (11.0-16.0) % Plt Count (160-400) X10*3/uL MPV (9.4-12.3) fL Immature Gran % (Auto) (0.0-0.4) % Neut % (Auto) (45-73) % Lymph % (Auto) (20-40) % [place] % (Auto) (2-11) % Eos % (Auto) (0-4) % Baso % (Auto) (0-2) % Lymph # (Auto) (1.2-4.9) X10*3/uL [place] # (Auto) (0.1-1.2) X10*3/uL Eos # (Auto) (0.0-0.4) X10*3/uL Baso # (Auto) (0.0-0.2) X10*3/uL Abs Immat Gran (auto) (0.00-0.03) X10*3/uL Absolute Neuts (auto) (2.0-8.3) x10*3/uL Absolute Nucleated RBC (0.0-0.012) X10*3/uL Nucleated RBC % (auto) (0.0-0.2) /100WBC Sodium (135-145) mmol/L Potassium (3.3-5.1) mmol/L Chloride (96-108) mmol/L Carbon Dioxide (22-29) mmol/L Anion Gap (12-20) BUN (9-16) mg/dL Creatinine (0.5-1.4) mg/dL Estim Creat Clear Calc Estimated GFR Random Glucose (60-115) mg/dL Calcium (8.4-10.2) mg/dL Total Bilirubin (0.0-1.0) mg/dL Direct Bilirubin (0.0-0.5) mg/dL AST (5-31) U/L ALT (0-31) U/L Alkaline Phosphatase (39-117) U/L Total Protein (6.5-8.0) g/dL Albumin (3.5-5.0) g/dL Urine Color YELLOW Urine Appearance CLOUDY Urine pH 6.0 (5.0-8.0) Ur Specific [place] 1.020 (1.005-1.025) Urine Protein 1+ H (NEG-TRACE) MG/DL Urine Glucose (UA) NEG (NEG) MG/DL Urine Ketones NEG (NEG) MG/DL Urine Blood 2+ H (NEG) Urine Nitrite POS H (NEG) Ur Leukocyte Esterase 3+ H (NEG) Urine RBC 0-2 (0) /HPF Urine WBC 76-150 H (0-4) /HPF Ur Squamous Epith Cells 1+ /LPF Amorphous Sediment 2+ /LPF Urine Bacteria 2+ /LPF COVID-19 (CHELITA) (Negative) COVID-19 Clin Com Discharge Plan Discharge Clinical Impression: COVID-19, Acute UTI, Weakness, Acute hypokalemia, Acute kidney injury superimposed on CKD Patient Disposition: Admitted As Inpatient Prescriptions: No Action atorvastatin 80 mg tablet 80 mg PO BEDTIME 90 Days Qty: 90 RF: 2 aspirin 81 mg tablet,chewable 81 mg PO DAILY 90 Days Qty: 90 RF: 1 thiamine HCl (vitamin B1) 100 mg tablet 100 mg PO DAILY 90 Days Qty: 90 RF: 0 cyanocobalamin (vitamin B-12) 1,000 mcg capsule 1,000 mcg PO DAILY 90 Days Qty: 90 RF: 0 cholecalciferol (vitamin D3) 50 mcg (2,000 unit) capsule 50 mcg PO DAILY 90 Days Qty: 90 RF: 0 sennosides [Senna Laxative] 8.6 mg tablet 17.2 mg PO BEDTIME 90 Days Qty: 180 RF: 1 nifedipine 60 mg tablet extended release 24hr 60 mg PO DAILY 90 Days Qty: 90 RF: 1 lisinopril 40 mg tablet 40 mg PO BEDTIME RF: 0
[2021-08-08 13:25] LABS: MANUAL DIFF FLAG NO
[2021-08-08 13:28] LABS: Appearance Urine CLOUDY; Color Urine YELLOW; Glucose Urine UA NEG (NEG); Leukocyte Esterase Urine 3+ (NEG); Nitrite Urine POS (NEG); UACC Culture Trigger YES; Urine Blood 2+ (NEG); Urine Ketones NEG (NEG); Urine Protein 1+ MG/DL (NEG-TRACE)
[2021-08-08 13:32] LABS: Basophils Percent Auto 0.2 % (0-2); Eosinophils Percent Auto 0.6 % (0-4); Hematocrit 36.5 % (37.0-47.0); Hemoglobin 12.6 g/dl (12.0-16.0); Imm Gran Abs Auto 0.04 X10*3/uL (0.00-0.03); Imm Gran Pct Auto 0.8 % (0.0-0.4); Lymphocytes Percent Auto 21.5 % (20-40); Mean Corpuscular HGB Conc 34.5 g/dl (31.0-35.0); Mean Corpuscular Hemoglobin 31.3 pg (27.0-33.0); Mean Corpuscular Volume 90.6 fL (80.0-98.0); Mean Platelet Volume 11.2 fL (9.4-12.3); Monocytes Absolute Auto 0.4 X10*3/uL (0.1-1.2); Monocytes Percent Auto 8.4 % (2-11); Neutrophils Absolute Auto 3.2 x10*3/uL (2.0-8.3); Neutrophils Percent Auto 68.5 % (45-73); Platelet Count 108 X10*3/uL (160-400); Red Blood Count 4.03 X10*6/uL (4.20-5.50); Red Cell Distribution Width 11.9 % (11.0-16.0); White Blood Count 4.7 X10*3/uL (4.8-10.8)
[2021-08-08 13:33] LABS: COVID-19 Test Positive (Negative)
[2021-08-08 13:41] LABS: Alanine Aminotransferase 22 U/L (0-31); Albumin Level 3.6 g/dL (3.5-5.0); Alkaline Phosphatase 89 U/L (39-117); Anion Gap 16 (12-20); Aspartate Amino Transferase 27 U/L (5-31); Bilirubin Direct 0.4 mg/dL (0.0-0.5); Bilirubin Total 0.6 mg/dL (0.0-1.0); Blood Urea Nitrogen 67 mg/dL (9-16); Calcium 8.1 mg/dL (8.4-10.2); Carbon Dioxide 17 mmol/L (22-29); Chloride 107 mmol/L (96-108); Creatinine Clr Calc Pharmacy 13.1; Estimated Glomerular Filt Rate 15; Glucose Random 140 mg/dL (60-115); Potassium 3.2 mmol/L (3.3-5.1); Sodium 137 mmol/L (135-145); Total Protein 6.1 g/dL (6.5-8.0)
--- NOTE | 2021-08-08 13:48 | PHA.MEDREC ---
Pharmacy Consult ? Medication Reconciliation Pharmacy has completed the medication reconciliation. There are no remarkable issues for provider's attention. Kylee Dunham, Bronson[facility]
[2021-08-08 13:57] LABS: RBC Urine 0-2 /HPF (0)
[2021-08-08 13:58] LABS: Amorphous Sediment Urine 2+ /LPF; Bacteria Urine 2+ /LPF; Squamous Epithelial Cell Urine 1+ /LPF
--- NOTE | 2021-08-08 15:30 | PC.NURSE ---
pt a difficult poke, call placed to phlebotomy to obtain blood cultures
[2021-08-08 15:34] VITALS: BP 122/59; PULSE 64; O2SAT 98
[2021-08-08] MEDS: Potassium Chloride Packet 20 MEQ PACKET 40 MEQ PO (15:37)
[2021-08-08] MEDS: 0.9 % Sodium Chloride 1,000 ML 999 ML IVCONT (16:24)
--- NOTE | 2021-08-08 17:15 | P.HPHOSP_ITS ---
History of Present Illness Date of Service: 08/08/21 Chief Complaint: weakness Patient is brought to the emergency room by her daughter.? According to the daughter, the patient has not been eating for the last 3 days.? Patient lives with her daughter.? Usually, patient is able to help care of herself.? Over the last week, patient has been gradually declining, but the last 3 days patient has been in bed, seems weaker than usual, refusing to eat.? ER Course Patient tested positive for COVID-19.? Patient also has a UTI.? Patient does not have a fever, blood pressure stable.? At this time sepsis is not suspected.? Patient is being treated with ceftriaxone.? Patient was given p.o. potassium as well.? Review of Systems Review of Systems: denies chest pain Shortness of breath Denies nausea vomiting diarrhea PMFSH Medical History Anxiety Bradycardia, sinus CAD (coronary artery disease) Colonoscopy refused CVA (cerebral vascular accident) Diabetic neuropathy, type II diabetes mellitus Fall Hypertension Mammogram declined Noncompliance Surgical History Aortocoronary bypass status Social History Household Members: Children Household Members Other:: 2 Housing: House Do you presently have visiting nurse or other home services: No Alcohol intake: never Patient Tobacco Use Status: Current everyday Tobacco user Cigarettes Per Day: 1 Years Smoked: 60 Second Hand Smoke Exposure: Yes Advance Directives: Yes Advance Directives on File: Yes Advance Directives Date on File: 08/27/20 service: No Current occupational status: retired [employer] Allergies Allergy/AdvReac Type Severity Reaction Status Date / Time No Known Allergies Allergy Verified 01/02/21 10:14 Active Medications: Current Medications Aspirin (Aspirin 81 Mg Tab.Chew) 81 mg PO DAILY [facility] Atorvastatin Calcium (Atorvastatin Calcium 80 Mg Tablet) 80 mg PO BEDTIME [facility] Cyanocobalamin (Cyanocobalamin (Vitamin B-12) 1,000 Mcg Tablet) 1,000 mcg PO DAILY [facility] Heparin Sodium (Porcine) (Heparin Sodium,Porcine 5,000 Unit/Ml Vial) 5,000 unit SUBCUT Q8H [facility] Sodium Chloride (Ns) 1,000 mls @ 100 mls/hr IVCONT .Q10H [facility] Ceftriaxone Sodium 1 gm/ (Sodium Chloride) 50 mls @ 100 mls/hr IV DAILY ONE Stop: 08/08/21 17:42 Nifedipine (Nifedipine Er 60 Mg Tab.Er.24) 60 mg PO DAILY [facility]; Protocol Senna (Sennosides 8.6 Mg Tablet) 17.2 mg PO BEDTIME [facility] Sodium Chloride (0.9 % Sodium Chloride Flush 3 Ml Syringe) 3 ml IVFLUSH QSHIFT [facility] Thiamine HCl (Thiamine Hcl 100 Mg Tablet) 100 mg PO DAILY [facility] Vitamin D (Cholecalciferol (Vitamin D3) 25 Mcg Tablet) 50 mcg PO DAILY [facility] Home Medications Medication Instructions Recorded Confirmed Last Taken Type lisinopril 40 mg tablet 40 mg PO BEDTIME 08/08/21 08/08/21 08/07/21 History Physical Exam Vital Signs and Narrative: Vital Signs: Last Vital Signs Temp 98.9 F 08/08/21 11:48 Pulse 64 08/08/21 15:34 Resp 18 08/08/21 11:48 BP 122/59 L 08/08/21 15:34 Pulse Ox 98 08/08/21 15:34 BMI result Body Mass Index 23.0 Const: Other: resting comfortably no acute distress Resp: Other: clear to auscultation bilaterally no rales rhonchi wheezes Cardio: Other: no S4; positive S1-S2; no S3 murmurs rubs or gallops GI: Other: soft nontender nondistended normoactive bowel sounds x4 quadrants. No rebound or guarding Extrem: Other: no edema bilaterally Results Labs CBC and Chem 7: 08/08/21 13:20 08/08/21 13:21 Labs: Laboratory Results - last 24 hr 08/08/21 08/08/21 08/08/21 13:20 13:20 13:21 MCV 90.6 MCH 31.3 MCHC 34.5 RDW 11.9 Plt Count 108 L MPV 11.2 Immature Gran % (Auto) 0.8 H Neut % (Auto) 68.5 Lymph % (Auto) 21.5 [place] % (Auto) 8.4 Eos % (Auto) 0.6 Baso % (Auto) 0.2 Lymph # (Auto) 1.0 L [place] # (Auto) 0.4 Eos # (Auto) 0.0 Baso # (Auto) 0.0 Abs Immat Gran (auto) 0.04 H Absolute Neuts (auto) 3.2 Absolute Nucleated RBC 0.000 Nucleated RBC % (auto) 0.0 Anion Gap 16 Estim Creat Clear Calc 13.1 Estimated GFR 15 Random Glucose 140 H Calcium 8.1 L D Total Bilirubin 0.6 Direct Bilirubin 0.4 AST 27 ALT 22 Alkaline Phosphatase 89 D Total Protein 6.1 L Albumin 3.6 Urine Color Urine Appearance Urine pH Ur Specific [place] Urine Protein Urine Glucose (UA) Urine Ketones Urine Blood Urine Nitrite Ur Leukocyte Esterase Urine RBC Urine WBC Ur Squamous Epith Cells Amorphous Sediment Urine Bacteria COVID-19 (CHELITA) Positive A COVID-19 Clin Com See Note 08/08/21 13:21 MCV MCH MCHC RDW Plt Count MPV Immature Gran % (Auto) Neut % (Auto) Lymph % (Auto) [place] % (Auto) Eos % (Auto) Baso % (Auto) Lymph # (Auto) [place] # (Auto) Eos # (Auto) Baso # (Auto) Abs Immat Gran (auto) Absolute Neuts (auto) Absolute Nucleated RBC Nucleated RBC % (auto) Anion Gap Estim Creat Clear Calc Estimated GFR Random Glucose Calcium Total Bilirubin Direct Bilirubin AST ALT Alkaline Phosphatase Total Protein Albumin Urine Color YELLOW Urine Appearance CLOUDY Urine pH 6.0 Ur Specific [place] 1.020 Urine Protein 1+ H Urine Glucose (UA) NEG Urine Ketones NEG Urine Blood 2+ H Urine Nitrite POS H Ur Leukocyte Esterase 3+ H Urine RBC 0-2 Urine WBC 76-150 H Ur Squamous Epith Cells 1+ Amorphous Sediment 2+ Urine Bacteria 2+ COVID-19 (CHELITA) COVID-19 Clin Com Assessment and Plan (1) HTN (hypertension): Qualifiers: Hypertension type: unspecified Qualified Code(s): I10 - Essential (primary) hypertension Status: Acute (2) COVID-19: Status: Acute (3) Acute UTI: Status: Acute (4) Acute hypokalemia: Status: Acute 75-year-old female presents with daughter with weakness worsening over the last week prior to arrival. Daughter also notes that her appetite has been poor along with her fluid intake. In the emergency room she tested COVID positive and had active urinary sediment. She will be admitted for the treatment of same 1.Covid -19 - will admit to isolation; no O2 requirement at this point -Add Decadron if O2 requirement changes 2.UTI - he will culture urine along with blood cultures - start ceftriaxone adjust pending cultures 3.Acute on chronic renal insufficiency - IV fluids; normal saline 100 an hour overnight -Hold lisinopril and replete potassium 4.HTN - Acceptable control at this point; add back therapies when appropriate - follow renals and divalents daily full code heparin Quality Stroke Does the patient have a stroke diagnosis?: No VTE Prior VTE?: No VTE Risk Level:: Medical - moderate - high VTE Device Contraindication: Treatment Not Indicated VTE Drug Contraindication: N/A - Med Ordered
[2021-08-08] MEDS: cefTRIAXone sodium 1 GM in 0.9 % Sodium Chloride 50 ML IV (17:49)
[2021-08-08] MEDS: 0.9 % Sodium Chloride 1,000 ML 100 ML IVCONT (17:51)
[2021-08-08 18:02] LABS: Lactic Acid 0.6 mmol/L (0.5-2.0)
[2021-08-08 19:02] VITALS: BP 118/95; PULSE 62; O2SAT 98
[2021-08-08] MEDS: Heparin Sodium,Porcine 5,000 UNIT/ML VIAL 5000 UNIT SUBCUT (19:04)
[2021-08-08] MEDS: Atorvastatin Calcium 80 MG TABLET PO (21:56)
[2021-08-08] MEDS: Sennosides 8.6 MG TABLET 17.2 MG PO (21:56)
[2021-08-09] MEDS: Heparin Sodium,Porcine 5,000 UNIT/ML VIAL 5000 UNIT SUBCUT ×3 (04:17→17:34)
[2021-08-09] MEDS: 0.9 % Sodium Chloride 1,000 ML 100 ML IVCONT (04:17)
[2021-08-09 06:16] VITALS: BP 99/50; PULSE 81; RESP 16; TEMP 36.4; O2SAT 100
[2021-08-09 08:42] LABS: MANUAL DIFF FLAG NO
[2021-08-09 08:47] LABS: Basophils Percent Auto 0.2 % (0-2); Eosinophils Percent Auto 0.5 % (0-4); Hematocrit 35.3 % (37.0-47.0); Hemoglobin 11.9 g/dl (12.0-16.0); Imm Gran Abs Auto 0.03 X10*3/uL (0.00-0.03); Imm Gran Pct Auto 0.5 % (0.0-0.4); Lymphocytes Absolute Auto 1.3 X10*3/uL (1.2-4.9); Lymphocytes Percent Auto 20.7 % (20-40); Mean Corpuscular HGB Conc 33.7 g/dl (31.0-35.0); Mean Corpuscular Hemoglobin 31.2 pg (27.0-33.0); Mean Corpuscular Volume 92.4 fL (80.0-98.0); Mean Platelet Volume 10.8 fL (9.4-12.3); Monocytes Absolute Auto 0.4 X10*3/uL (0.1-1.2); Monocytes Percent Auto 6.8 % (2-11); Neutrophils Absolute Auto 4.3 x10*3/uL (2.0-8.3); Neutrophils Percent Auto 71.3 % (45-73); Platelet Count 120 X10*3/uL (160-400); Red Blood Count 3.82 X10*6/uL (4.20-5.50); White Blood Count 6.1 X10*3/uL (4.8-10.8)
[2021-08-09 09:21] VITALS: BP 144/68; PULSE 72; RESP 18; O2SAT 100
[2021-08-09 09:24] LABS: Alanine Aminotransferase 23 U/L (0-31); Albumin Level 3.4 g/dL (3.5-5.0); Alkaline Phosphatase 88 U/L (39-117); Anion Gap 15 (12-20); Aspartate Amino Transferase 31 U/L (5-31); Bilirubin Total 0.5 mg/dL (0.0-1.0); Blood Urea Nitrogen 47 mg/dL (9-16); Calcium 7.7 mg/dL (8.4-10.2); Carbon Dioxide 16 mmol/L (22-29); Chloride 117 mmol/L (96-108); Creatinine Clr Calc Pharmacy 20.1; Estimated Glomerular Filt Rate 24; Glucose Fasting 108 mg/dL (60-99); Potassium 4.1 mmol/L (3.3-5.1); Sodium 144 mmol/L (135-145); Total Protein 5.8 g/dL (6.5-8.0)
[2021-08-09] MEDS: Cholecalciferol (Vitamin D3) 25 MCG TABLET 50 MCG PO (10:21)
[2021-08-09] MEDS: NIFEdipine ER 60 MG TAB.ER.24 PO (10:21)
[2021-08-09] MEDS: Cyanocobalamin (Vitamin B-12) 1,000 MCG TABLET 1000 MCG PO (10:21)
[2021-08-09] MEDS: Aspirin 81 MG TAB.CHEW PO (10:21)
[2021-08-09] MEDS: Thiamine HCL 100 MG TABLET PO (10:21)
--- NOTE | 2021-08-09 11:15 | PC.NURSE ---
Pt sleeping, aroused to name, no complaints of pain, Alert to person and place. Spoke to daughter and provided update, aware of COVID + and UTI with positive cultures. Fluids stopped as per orders. Awaiting bed assignment. Will continue to monitor.
--- NOTE | 2021-08-09 14:19 | HO.PM.IMPN ---
Subjective Subjective Date of Service: 08/09/21 Interval History: no acute events overnight. feels better this morning Review of Systems denies chest pain Denies shortness of breath Denies nausea vomiting diarrhea Physical Exam Vital Signs: Vital Signs: Last Vital Signs Temp 97.6 F 08/09/21 06:16 Pulse 72 08/09/21 09:21 Resp 18 08/09/21 09:21 BP 144/68 H 08/09/21 09:21 Pulse Ox 100 08/09/21 09:21 BMI result Body Mass Index 23.0 Const: Other: resting comfortably no acute distress Resp: Other: clear to auscultation bilaterally no rales rhonchi wheezes Cardio: Other: no S4; positive S1-S2; no S3 murmurs rubs or gallops GI: Other: soft nontender nondistended normoactive bowel sounds x4 quadrants. No rebound or guarding Extrem: Other: no edema bilaterally Objective Data Active Medications Aspirin (Aspirin 81 Mg Tab.Chew) 81 mg PO DAILY [facility] Last Admin: 08/09/21 10:21 Dose: 81 mg Documented by: HUGO Atorvastatin Calcium (Atorvastatin Calcium 80 Mg Tablet) 80 mg PO BEDTIME [facility] Last Admin: 08/08/21 21:56 Dose: 80 mg Documented by: COLTON Cyanocobalamin (Cyanocobalamin (Vitamin B-12) 1,000 Mcg Tablet) 1,000 mcg PO DAILY [facility] Last Admin: 08/09/21 10:21 Dose: 1,000 mcg Documented by: HUGO Heparin Sodium (Porcine) (Heparin Sodium,Porcine 5,000 Unit/Ml Vial) 5,000 unit SUBCUT Q8H [facility] Last Admin: 08/09/21 10:21 Dose: 5,000 unit Documented by: HUGO Ceftriaxone Sodium 1 gm/ (Sodium Chloride) 50 mls @ 100 mls/hr IV Q24H [facility] Nifedipine (Nifedipine Er 60 Mg Tab.Er.24) 60 mg PO DAILY [facility]; Protocol Last Admin: 08/09/21 10:21 Dose: 60 mg Documented by: HUGO Senna (Sennosides 8.6 Mg Tablet) 17.2 mg PO BEDTIME [facility] Last Admin: 08/08/21 21:56 Dose: 17.2 mg Documented by: COLTON Sodium Chloride (0.9 % Sodium Chloride Flush 3 Ml Syringe) 3 ml IVFLUSH QSHIFT [facility] Last Admin: 08/09/21 10:21 Dose: Not Given Documented by: HUGO Non-Admin Reason: IV Running Thiamine HCl (Thiamine Hcl 100 Mg Tablet) 100 mg PO DAILY [facility] Last Admin: 08/09/21 10:21 Dose: 100 mg Documented by: HUGO Vitamin D (Cholecalciferol (Vitamin D3) 25 Mcg Tablet) 50 mcg PO DAILY [facility] Last Admin: 08/09/21 10:21 Dose: 50 mcg Documented by: HUGO Labs CBC & Chem 7: 08/09/21 08:28 08/09/21 08:28 Labs: Laboratory Results - last 24 hr 08/08/21 08/08/21 08/09/21 13:21 17:42 08:28 MCV 92.4 MCH 31.2 MCHC 33.7 RDW 12.0 Plt Count 120 L MPV 10.8 Immature Gran % (Auto) 0.5 H Neut % (Auto) 71.3 Lymph % (Auto) 20.7 [place] % (Auto) 6.8 Eos % (Auto) 0.5 Baso % (Auto) 0.2 Lymph # (Auto) 1.3 [place] # (Auto) 0.4 Eos # (Auto) 0.0 Baso # (Auto) 0.0 Abs Immat Gran (auto) 0.03 Absolute Neuts (auto) 4.3 Absolute Nucleated RBC 0.000 Nucleated RBC % (auto) 0.0 Anion Gap Creatinine 3.07 H Estim Creat Clear Calc Estimated GFR Fasting Glucose Lactic Acid 0.6 Calcium Total Bilirubin AST ALT Alkaline Phosphatase Total Protein Albumin 08/09/21 08:28 MCV MCH MCHC RDW Plt Count MPV Immature Gran % (Auto) Neut % (Auto) Lymph % (Auto) [place] % (Auto) Eos % (Auto) Baso % (Auto) Lymph # (Auto) [place] # (Auto) Eos # (Auto) Baso # (Auto) Abs Immat Gran (auto) Absolute Neuts (auto) Absolute Nucleated RBC Nucleated RBC % (auto) Anion Gap 15 Creatinine 1.99 H Estim Creat Clear Calc 20.1 Estimated GFR 24 Fasting Glucose 108 H Lactic Acid Calcium 7.7 L Total Bilirubin 0.5 AST 31 ALT 23 Alkaline Phosphatase 88 Total Protein 5.8 L Albumin 3.4 L Microbiology Microbiology Results: Microbiology 08/08/21 Unknown Urine Culture - Preliminary Urine Catheterized - Straight Catheter Gram negative yamile Assessment and Plan (1) COVID-19: Status: Acute (2) HTN (hypertension): Status: Acute (3) Acute UTI: Status: Acute (4) Acute kidney injury superimposed on CKD: Status: Acute Assessment and Plan: 75-year-old female presents with daughter with weakness worsening over the last week prior to arrival. Daughter also notes that her appetite has been poor along with her fluid intake. In the emergency room she tested COVID positive and had active urinary sediment. She will be admitted for the treatment of same 1.Covid -19 - will admit to isolation; no O2 requirement at this point - no indication for steroids at this time 2.UTI - continue ceftriaxone pending cultures 3.Acute on chronic renal insufficiency with underlying hyperchloremic met acidosis - will DC saline solution follow-up labs in a.m. -Hold lisinopril 4.HTN -Acceptable control at this point; add back therapies when appropriate - follow renals and divalents daily full code heparin Quality Stroke Does the patient have a stroke diagnosis?: No VTE Prior VTE?: No VTE Risk Level:: Medical - moderate - high VTE Device Contraindication: Treatment Not Indicated VTE Drug Contraindication: N/A - Med Ordered
--- NOTE | 2021-08-09 17:14 | PC.NURSE ---
Pt inc of large amount of stool and urine, pericare and bed cange completed, awaiting bed assignment. Call zaldivar within reach. Will continue to monitor.
[2021-08-09] MEDS: cefTRIAXone sodium 1 GM in 0.9 % Sodium Chloride 50 ML IV (17:34)
[2021-08-09] MEDS: Atorvastatin Calcium 80 MG TABLET PO (21:03)
[2021-08-10 00:16] VITALS: BP 154/71; PULSE 68; RESP 20; TEMP 36.7; O2SAT 95
[2021-08-10] MEDS: Heparin Sodium,Porcine 5,000 UNIT/ML VIAL 5000 UNIT SUBCUT ×3 (01:50→18:15)
[2021-08-10] MEDS: 0.9 % Sodium Chloride Flush 3 ML SYRINGE IVFLUSH ×4 (01:50→20:12)
[2021-08-10 07:40] VITALS: BP 134/63; PULSE 34; RESP 20; TEMP 36.1; O2SAT 100
[2021-08-10 07:47] LABS: MANUAL DIFF FLAG NO
[2021-08-10 08:14] LABS: Basophils Percent Auto 0.2 % (0-2); Eosinophils Absolute Auto 0.1 X10*3/uL (0.0-0.4); Eosinophils Percent Auto 1.3 % (0-4); Hematocrit 37.2 % (37.0-47.0); Hemoglobin 12.4 g/dl (12.0-16.0); Imm Gran Abs Auto 0.03 X10*3/uL (0.00-0.03); Imm Gran Pct Auto 0.6 % (0.0-0.4); Lymphocytes Absolute Auto 1.2 X10*3/uL (1.2-4.9); Lymphocytes Percent Auto 24.3 % (20-40); Mean Corpuscular HGB Conc 33.3 g/dl (31.0-35.0); Mean Corpuscular Hemoglobin 30.8 pg (27.0-33.0); Mean Corpuscular Volume 92.5 fL (80.0-98.0); Mean Platelet Volume 11.1 fL (9.4-12.3); Monocytes Absolute Auto 0.4 X10*3/uL (0.1-1.2); Monocytes Percent Auto 7.8 % (2-11); Neutrophils Absolute Auto 3.1 x10*3/uL (2.0-8.3); Neutrophils Percent Auto 65.8 % (45-73); Platelet Count 137 X10*3/uL (160-400); Red Blood Count 4.02 X10*6/uL (4.20-5.50); Red Cell Distribution Width 11.9 % (11.0-16.0); White Blood Count 4.7 X10*3/uL (4.8-10.8)
[2021-08-10 08:19] LABS: Alanine Aminotransferase 21 U/L (0-31); Albumin Level 3.5 g/dL (3.5-5.0); Alkaline Phosphatase 96 U/L (39-117); Anion Gap 17 (12-20); Aspartate Amino Transferase 28 U/L (5-31); Bilirubin Total 0.7 mg/dL (0.0-1.0); Blood Urea Nitrogen 30 mg/dL (9-16); Calcium 8.1 mg/dL (8.4-10.2); Carbon Dioxide 17 mmol/L (22-29); Chloride 115 mmol/L (96-108); Creatinine Clr Calc Pharmacy 23.5; Estimated Glomerular Filt Rate 29; Glucose Fasting 175 mg/dL (60-99); Potassium 3.9 mmol/L (3.3-5.1); Sodium 145 mmol/L (135-145)
[2021-08-10] MEDS: Aspirin 81 MG TAB.CHEW PO (08:40)
[2021-08-10] MEDS: Cholecalciferol (Vitamin D3) 25 MCG TABLET 50 MCG PO (08:40)
[2021-08-10] MEDS: Cyanocobalamin (Vitamin B-12) 1,000 MCG TABLET 1000 MCG PO (08:40)
[2021-08-10] MEDS: Thiamine HCL 100 MG TABLET PO (08:40)
[2021-08-10] MEDS: NIFEdipine ER 60 MG TAB.ER.24 PO (08:40)
--- NOTE | 2021-08-10 10:40 | PM.CNCAR ---
History of Present Illness History of Present Illness Date of Service: 08/10/21 Chief complaint: Covid/UTI Narrative: This is a cardiology consultation regarding complete heart block. Patient has been admitted for COVID infection and in this setting, she has been found to have complete heart block on telemetry. Patient herself does not have any symptoms like feeling dizzy, syncopal among others. No angina or shortness of breath either. There is a history of coronary artery bypass surgery in 1995. She does not see any outpatient air pollution compliance inspector but it appears that she has been seen by our team when she was an inpatient. However, has not followed up in the office. Review of Systems Review of Systems: Yes all other systems are reviewed and are negative Cardiovascular: Cardiovascular: Reports as per HPI, Reports no additional cardiovascular complaints, Denies acrocyanosis, Denies cool extremities, Denies painful fingertips, Denies chest pain, Denies chest pain at rest, Denies diaphoresis, Denies syncope, Denies irregular heart rhythm, Denies claudication, Denies leg edema, Denies lightheadedness, Denies palpitations and Denies dyspnea Respiratory: Respiratory: Denies dyspnea Neurologic: Denies syncope Endocrine: Endocrine: Denies palpitations PMFSH Past Medical History Medical History Anxiety Bradycardia, sinus CAD (coronary artery disease) Colonoscopy refused CVA (cerebral vascular accident) Diabetic neuropathy, type II diabetes mellitus Fall Hypertension Mammogram declined Noncompliance Family History Pertinent family history: Denies any significant family history. Surgical History Surgical History Aortocoronary bypass status Social History Social History Household Members: Family Household Members Other:: 2 Housing: House Do you presently have visiting nurse or other home services: No Alcohol intake: never Patient Tobacco Use Status: Current everyday Tobacco user Cigarettes Per Day: 1 Years Smoked: 60 Second Hand Smoke Exposure: Yes Advance Directives Date on File: 08/27/20 service: No Current occupational status: retired Meds Allergies Allergy/AdvReac Type Severity Reaction Status Date / Time No Known Allergies Allergy Verified 01/02/21 10:14 Active Medications: Current Medications Aspirin (Aspirin 81 Mg Tab.Chew) 81 mg PO DAILY [facility] Last Admin: 08/10/21 08:40 Dose: 81 mg Documented by: Atorvastatin Calcium (Atorvastatin Calcium 80 Mg Tablet) 80 mg PO BEDTIME [facility] Last Admin: 08/09/21 21:03 Dose: 80 mg Documented by: Cyanocobalamin (Cyanocobalamin (Vitamin B-12) 1,000 Mcg Tablet) 1,000 mcg PO DAILY [facility] Last Admin: 08/10/21 08:40 Dose: 1,000 mcg Documented by: Heparin Sodium (Porcine) (Heparin Sodium,Porcine 5,000 Unit/Ml Vial) 5,000 unit SUBCUT Q8H [facility] Last Admin: 08/10/21 08:40 Dose: 5,000 unit Documented by: Ceftriaxone Sodium 1 gm/ (Sodium Chloride) 50 mls @ 100 mls/hr IV Q24H [facility] Last Infusion: 08/09/21 22:37 Dose: Infused Documented by: Nifedipine (Nifedipine Er 60 Mg Tab.Er.24) 60 mg PO DAILY [facility]; Protocol Last Admin: 08/10/21 08:40 Dose: 60 mg Documented by: Senna (Sennosides 8.6 Mg Tablet) 17.2 mg PO BEDTIME [facility] Last Admin: 08/09/21 21:03 Dose: Not Given Documented by: Sodium Chloride (0.9 % Sodium Chloride Flush 3 Ml Syringe) 3 ml IVFLUSH QSHIFT [facility] Last Admin: 08/10/21 08:40 Dose: 3 ml Documented by: Thiamine HCl (Thiamine Hcl 100 Mg Tablet) 100 mg PO DAILY [facility] Last Admin: 08/10/21 08:40 Dose: 100 mg Documented by: Vitamin D (Cholecalciferol (Vitamin D3) 25 Mcg Tablet) 50 mcg PO DAILY [facility] Last Admin: 08/10/21 08:40 Dose: 50 mcg Documented by: Home Medications Medication Instructions Recorded Confirmed Last Taken Type lisinopril 40 mg tablet 40 mg PO BEDTIME 08/08/21 08/08/21 08/07/21 History Physical Exam Vital Signs: Vital Signs: Last Vital Signs Temp 97.0 F 08/10/21 07:40 Pulse 34 L 08/10/21 07:40 Resp 20 08/10/21 07:40 BP 134/63 08/10/21 07:40 Pulse Ox 100 08/10/21 07:40 BMI result Body Mass Index 23.0 Const: General: no acute distress HENMT: Other: Unremarkable Neck: Neck: Yes normal visual inspection Chest: Chest palpation & inspection: normal inspection of the chest Resp: Auscultation: no crackles and no wheezes Cardio: Other: Heart sounds somewhat distant and also she is quite bradycardic and hence difficult to assess. Likely no significant murmur. GI: Palpation (GI): Soft to palpation Back/Spine/Pelvis: Other: unremarkable Skin: Lesions: other Neuro: Cranial nerves: Yes Other cranial nerve findings present Extrem: General: Yes other Psych: Mental Status: other Objective Labs and Meds Result diagrams: 08/10/21 07:20 08/10/21 07:20 Lab results: Laboratory Results - last 24 hr 08/10/21 08/10/21 07:20 07:20 WBC 4.7 L RBC 4.02 L Hgb 12.4 Hct 37.2 MCV 92.5 MCH 30.8 MCHC 33.3 RDW 11.9 Plt Count 137 L MPV 11.1 Immature Gran % (Auto) 0.6 H Neut % (Auto) 65.8 Lymph % (Auto) 24.3 [place] % (Auto) 7.8 Eos % (Auto) 1.3 Baso % (Auto) 0.2 Lymph # (Auto) 1.2 [place] # (Auto) 0.4 Eos # (Auto) 0.1 Baso # (Auto) 0.0 Abs Immat Gran (auto) 0.03 Absolute Neuts (auto) 3.1 Absolute Nucleated RBC 0.000 Nucleated RBC % (auto) 0.0 Sodium 145 Potassium 3.9 Chloride 115 H Carbon Dioxide 17 L Anion Gap 17 BUN 30 H Creatinine 1.71 H Estim Creat Clear Calc 23.5 Estimated GFR 29 Fasting Glucose 175 H Calcium 8.1 L Total Bilirubin 0.7 AST 28 ALT 21 Alkaline Phosphatase 96 Total Protein 6.0 L Albumin 3.5 Imaging Radiologist's impression: EKG from shows sinus rhythm and right bundle-branch block pattern. Assessment and Plan (1) Complete heart block: Status: Acute Telemetry shows complete heart block with escape rhythm in the 30s. However, clinically she has no symptoms and seems fairly compensated. She still like leads a pacemaker implanted this admission. Upon discussing with patient, she states that she does not want a pacemaker at any cost. She is also understanding the fact that if untreated, could lead to . She states that she would rather in that case but still does not want any procedures. Discussed with Dr. Elizabeth. Procedures Date of Service Date of Service: 08/10/21
[2021-08-10 11:40] VITALS: BP 125/58; PULSE 33; RESP 20; TEMP 37.8; O2SAT 99
--- NOTE | 2021-08-10 11:49 | MHC.CM.PN ---
CM CONTACTED PTS DAUGHTER/HCP, CICI MELENDREZ. PT LIVES WITH HER DAUGHTER WHO ASSISTS HER PRN. PER DAUGHTER, PT DOES TRY TO MANAGE HER ADLS HOWEVER DOES REQUIRE SOME ASSISTANCE. PT IS NOT SUPPOSED TO USE THE STOVE, SO HER DAUGHTER PREPARES BREAKFAST AND DINNER AND LEAVES HER MICROWAVEABLE LUNCHES SHE WORKS DURING THE DAY. CICI ALSO MANAGES AND ADMINISTERS PTS MEDS TWICE DAILY. PT DOES NOT USE ANY DME HOWEVER SHE DOES HAVE A WALKER AND GAIT BELT AT HOME. PT HAS NO OUTSIDE SERVICES. KIESHA GOMEZ IS PTS PCP PT HAS A HCP ON FILE IMM DELIVERED, ORIGINAL WILL BE MAILED TO CICI, COPY SENT TO [facility]. CURRENT DC PLAN IS HOME WITH NO SERVICES DAUGHTER TO TRANSPORT CICI ASKS THAT SHE BE INCLUDED IN DC PLANNING AND INFORMED OF MEDICATION CHANGES AT DC.
--- NOTE | 2021-08-10 15:36 | HO.PM.IMPN ---
Subjective Subjective Date of Service: 08/10/21 Interval History: No complaints overnight. This am..monitor demonstrated complete heart block. Asymptomatic Review of Systems Denies chest pain Denies SOB Denies N/V/D Physical Exam Vital Signs: Vital Signs: Last Vital Signs Temp 100.0 F 08/10/21 11:40 Pulse 33 L 08/10/21 11:40 Resp 20 08/10/21 11:40 BP 125/58 L 08/10/21 11:40 Pulse Ox 99 08/10/21 11:40 BMI result Body Mass Index 23.0 Const: Other: resting comfortably no acute distress Resp: Other: clear to auscultation bilaterally no rales rhonchi wheezes Cardio: Other: no S4; positive S1-S2; no S3 murmurs rubs or gallops GI: Other: soft nontender nondistended normoactive bowel sounds x4 quadrants. No rebound or guarding Extrem: Other: no edema bilaterally Objective Data Active Medications Aspirin (Aspirin 81 Mg Tab.Chew) 81 mg PO DAILY [facility] Last Admin: 08/10/21 08:40 Dose: 81 mg Documented by: KARINA Atorvastatin Calcium (Atorvastatin Calcium 80 Mg Tablet) 80 mg PO BEDTIME [facility] Last Admin: 08/09/21 21:03 Dose: 80 mg Documented by: STEPHANI Cyanocobalamin (Cyanocobalamin (Vitamin B-12) 1,000 Mcg Tablet) 1,000 mcg PO DAILY [facility] Last Admin: 08/10/21 08:40 Dose: 1,000 mcg Documented by: KARINA Heparin Sodium (Porcine) (Heparin Sodium,Porcine 5,000 Unit/Ml Vial) 5,000 unit SUBCUT Q8H [facility] Last Admin: 08/10/21 08:40 Dose: 5,000 unit Documented by: KARINA Ceftriaxone Sodium 1 gm/ (Sodium Chloride) 50 mls @ 100 mls/hr IV Q24H [facility] Last Infusion: 08/09/21 22:37 Dose: 0 mls/hr Documented by: LYN Nifedipine (Nifedipine Er 60 Mg Tab.Er.24) 60 mg PO DAILY [facility]; Protocol Last Admin: 08/10/21 08:40 Dose: 60 mg Documented by: KARINA Senna (Sennosides 8.6 Mg Tablet) 17.2 mg PO BEDTIME [facility] Last Admin: 08/09/21 21:03 Dose: Not Given Documented by: SUSANA-PARRC Non-Admin Reason: See Note Sodium Chloride (0.9 % Sodium Chloride Flush 3 Ml Syringe) 3 ml IVFLUSH QSHIFT [facility] Last Admin: 08/10/21 08:40 Dose: 3 ml Documented by: KARINA Thiamine HCl (Thiamine Hcl 100 Mg Tablet) 100 mg PO DAILY [facility] Last Admin: 08/10/21 08:40 Dose: 100 mg Documented by: KARINA Vitamin D (Cholecalciferol (Vitamin D3) 25 Mcg Tablet) 50 mcg PO DAILY [facility] Last Admin: 08/10/21 08:40 Dose: 50 mcg Documented by: KARINA Labs CBC & Chem 7: 08/10/21 07:20 08/10/21 07:20 Labs: Laboratory Results - last 24 hr 08/10/21 08/10/21 07:20 07:20 MCV 92.5 MCH 30.8 MCHC 33.3 RDW 11.9 Plt Count 137 L MPV 11.1 Immature Gran % (Auto) 0.6 H Neut % (Auto) 65.8 Lymph % (Auto) 24.3 [place] % (Auto) 7.8 Eos % (Auto) 1.3 Baso % (Auto) 0.2 Lymph # (Auto) 1.2 [place] # (Auto) 0.4 Eos # (Auto) 0.1 Baso # (Auto) 0.0 Abs Immat Gran (auto) 0.03 Absolute Neuts (auto) 3.1 Absolute Nucleated RBC 0.000 Nucleated RBC % (auto) 0.0 Anion Gap 17 Estim Creat Clear Calc 23.5 Estimated GFR 29 Fasting Glucose 175 H Calcium 8.1 L Total Bilirubin 0.7 AST 28 ALT 21 Alkaline Phosphatase 96 Total Protein 6.0 L Albumin 3.5 Microbiology Microbiology Results: Microbiology 08/08/21 Unknown Urine Culture - Final Urine Catheterized - Straight Catheter Escherichia coli 08/08/21 17:39 Blood Culture - Preliminary Blood - Venous No growth after 24 hours. 08/08/21 17:42 Blood Culture - Preliminary Blood - Venous No growth after 24 hours. Assessment and Plan (1) HTN (hypertension): Status: Acute (2) Complete heart block: Status: Acute (3) COVID-19: Status: Acute Assessment and Plan: 75-year-old female presents with daughter with weakness worsening over the last week prior to arrival. Daughter also notes that her appetite has been poor along with her fluid intake. In the emergency room she tested COVID positive and had active urinary sediment. She will be admitted for the treatment of same 1.Covid -19 - will admit to isolation; no O2 requirement at this point - no indication for steroids at this time 2.UTI(EColi ss CTX) - continue ceftriaxone -switch to Ceftin at D/C 3.Acute on chronic renal insufficiency with underlying hyperchloremic met acidosis -will DC saline solution follow-up labs in a.m. -Hold lisinopril 4.HTN -Acceptable control at this point; add back therapies when appropriate - follow renals and divalents daily 5.Complete Heart Block -asymptomatic - Seen by Cardiology; refusing all procedures at this time; Call placed to daughter Pia Castro(proxy)...states mother would not want any extraordinary measures. DNR/DNI order placed. Telemetry D/C'd [employer] Quality Stroke Does the patient have a stroke diagnosis?: No VTE Prior VTE?: No VTE Risk Level:: Medical - moderate - high VTE Device Contraindication: Treatment Not Indicated VTE Drug Contraindication: N/A - Med Ordered
--- NOTE | 2021-08-10 15:52 | PC.NURSE ---
At start of shift pt's heart rate was noted to be as low as 33 . she was placed on court monitor and ekg was done. Dr Elizabeth evaluated pt. cardiologgy consult was done. Pt declined pacemaker. All shift heart rate remained 30's to 40's. She was asymptomatic. Spoke with pt's daughter to confirm her conversation with md regarding making pt dnr/dni.
[2021-08-10 16:00] VITALS: BP 128/59; PULSE 97; RESP 18; TEMP 37.2; O2SAT 97
[2021-08-10] MEDS: cefTRIAXone sodium 1 GM in 0.9 % Sodium Chloride 50 ML IV (18:14)
[2021-08-10 19:46] VITALS: BP 110/45; PULSE 33; RESP 18; TEMP 36.8; O2SAT 97
[2021-08-10] MEDS: Atorvastatin Calcium 80 MG TABLET PO (20:11)
[2021-08-10 23:29] VITALS: BP 118/50; PULSE 33; RESP 18; TEMP 36.3; O2SAT 98
[2021-08-11] MEDS: Heparin Sodium,Porcine 5,000 UNIT/ML VIAL 5000 UNIT SUBCUT ×2 (00:06→09:03)
[2021-08-11 03:41] VITALS: BP 130/49; PULSE 31; RESP 18; TEMP 36.4; O2SAT 95
[2021-08-11 04:47] LABS: MANUAL DIFF FLAG NO
[2021-08-11 04:54] LABS: Mean Corpuscular HGB Conc 33.5 g/dl (31.0-35.0); PLT CLUMP 1; Red Blood Count 3.66 X10*6/uL (4.20-5.50); Red Cell Distribution Width 12.3 % (11.0-16.0); SCAN SMEAR FLAG 1
[2021-08-11 04:57] LABS: Basophils Percent Auto 0.4 % (0-2); Eosinophils Absolute Auto 0.1 X10*3/uL (0.0-0.4); Eosinophils Percent Auto 1.7 % (0-4); Hemoglobin 11.4 g/dl (12.0-16.0); Imm Gran Abs Auto 0.04 X10*3/uL (0.00-0.03); Imm Gran Pct Auto 0.8 % (0.0-0.4); Lymphocytes Absolute Auto 1.4 X10*3/uL (1.2-4.9); Lymphocytes Percent Auto 27.3 % (20-40); Mean Corpuscular Hemoglobin 31.1 pg (27.0-33.0); Mean Corpuscular Volume 92.9 fL (80.0-98.0); Mean Platelet Volume 10.9 fL (9.4-12.3); Monocytes Absolute Auto 0.5 X10*3/uL (0.1-1.2); Monocytes Percent Auto 8.9 % (2-11); Neutrophils Absolute Auto 3.2 x10*3/uL (2.0-8.3); Neutrophils Percent Auto 60.9 % (45-73)
[2021-08-11 05:04] LABS: Platelet Count 132 X10*3/uL (160-400); White Blood Count 5.2 X10*3/uL (4.8-10.8)
[2021-08-11 05:35] LABS: Alanine Aminotransferase 19 U/L (0-31); Albumin Level 3.1 g/dL (3.5-5.0); Alkaline Phosphatase 86 U/L (39-117); Anion Gap 13 (12-20); Aspartate Amino Transferase 22 U/L (5-31); Bilirubin Total 0.5 mg/dL (0.0-1.0); Blood Urea Nitrogen 27 mg/dL (9-16); Calcium 7.9 mg/dL (8.4-10.2); Carbon Dioxide 19 mmol/L (22-29); Chloride 116 mmol/L (96-108); Creatinine Clr Calc Pharmacy 22.7; Estimated Glomerular Filt Rate 28; Glucose Fasting 150 mg/dL (60-99); Potassium 3.8 mmol/L (3.3-5.1); Sodium 144 mmol/L (135-145); Total Protein 5.4 g/dL (6.5-8.0)
[2021-08-11 07:40] VITALS: BP 161/60; PULSE 33; RESP 17; TEMP 36.5; O2SAT 98
[2021-08-11] MEDS: 0.9 % Sodium Chloride Flush 3 ML SYRINGE IVFLUSH (09:02)
[2021-08-11] MEDS: NIFEdipine ER 60 MG TAB.ER.24 PO (09:02)
[2021-08-11] MEDS: Cholecalciferol (Vitamin D3) 25 MCG TABLET 50 MCG PO (09:02)
[2021-08-11] MEDS: Aspirin 81 MG TAB.CHEW PO (09:02)
[2021-08-11] MEDS: Cyanocobalamin (Vitamin B-12) 1,000 MCG TABLET 1000 MCG PO (09:03)
[2021-08-11] MEDS: Thiamine HCL 100 MG TABLET PO (09:03)
--- NOTE | 2021-08-11 09:08 | P.CDIC_ITS ---
CDI Concurrent Query Documentation Clarification: PHYSICIAN'S DOCUMENTATION REQUEST Date of Query: 08/11/2108 Patient Name: Ilir Schreiber Admit Date: 08/08/21 Dear Doctor, A review of the medical record indicates additional documentation may be needed. Please review below and update the documentation accordingly. Clinical Indicators: The following clinical information was noted in the record: Risk Factors/Clinical Indicators/Treatments BUN 67 Creatinine 3.07 Estimated GFR 15 Per ED note: RENÉE/CKD Please clarify which of the following accurately represents the patient's renal status: * Acute renal failure - see criteria * Acute renal failure with suspected ATN * Acute renal failure with other pathology (medullary, papillary, or cortical necrosis) * Acute renal failure (with type, appropriate) on Chronic Kidney Disease (CKD) - see criteria * Other (please specify) * Unable to determine Criteria for RENÉE* Stages of Chronic Kidney Disease* 0 1. Increase in serum creatinine by ? 0.3 mg/dL Level Description GFR (?26.5 micromol/L) within 48 hours, or G1 Normal or High > 90 2. Increase in serum creatinine to ?1.5 times baseline, G2 Mildly decreased 60 ? 89 which is known or presumed to have occurred within 7 days, or G3a Mildly to moderately decreased 45 ? 59 3. Urine volume <0.5 mL/kg/hour for six hours G3b Moderately to severely decreased 30 - 44 G4 Severely decreased 15 ? 29 G5 Kidney failure < 15 *Source: Kidney Disease: Improving Global Outcomes (KDIGO) 2012 Use of terms such as suspected, likely, concern for, or probable (associated with a specific diagnosis that is being evaluated, monitored, or treated as if it exists) are acceptable and can be coded in the inpatient setting, when documented at the time of discharge. Thank you, Hollie Pena RN Extension: [phone] Please use your independent medical judgment in providing your response. THIS QUERY IS PART OF THE PERMANENT MEDICAL RECORD Provider Response: Other Other Diagnosis: acute on chronic renal insufficiency
[2021-08-11 11:20] VITALS: BP 121/55; PULSE 30; RESP 16; TEMP 36.7; O2SAT 98
--- NOTE | 2021-08-11 13:59 | MHC.CM.PN ---
spoke with pts watson grayndy she will be here at 4 to pick pt up pt ho me with hvns for pt and sn
--- NOTE | 2021-08-11 14:01 | P.DS_ITS ---
DS: Providers Provider Date of Service: 08/11/21 Date of admission: 08/08/21 17:11 Date of discharge: 08/11/21 Primary care physician: BING Garcia Consults: 08/10/21 08:40 Consult to Cardiology Routine Consulting Provider: Julio Maurer Reason for consultation: Complete heart block Has provider been notified: Yes DS: Diagnosis Discharge Diagnosis (1) HTN (hypertension): Status: Acute (2) Complete heart block: Status: Acute (3) COVID-19: Status: Acute DS: Summary Hospital Course Hospital Course: Patient is brought to the emergency room by her daughter.? According to the daughter, the patient has not been eating for the last 3 days.? Patient lives with her daughter.? Usually, patient is able to help care of herself.? Over the last week, patient has been gradually declining, but the last 3 days patient has been in bed, seems weaker than usual, refusing to eat.? ER Course Patient tested positive for COVID-19.? Patient also has a UTI.? Patient does not have a fever, blood pressure stable.? At this time sepsis is not suspected.? Patient is being treated with ceftriaxone.? Patient was given p.o. potassium as well.? hospital course patient admitted, given IV ceftriaxone with good response. Over the next 24-48 hours patient Developed complete heart block on the monitor which was asymptomatic. Seen by Cardiology but declined all intervention. Call placed to daughter who states mother would not want extensive intervention. Monitor DC 8 and patient remained clinically stable. returned to what seemed to be her baseline. She was seen by Physical therapy and deemed suitable to be DC to home with outpatient services. She will be switched to oral Ceftin to complete a 7 day course. Time Spent with Patient Time attestation: Total time spent providing and/or coordinating discharge services: Discharge coordination time: Greater than 30 minutes Quality: Stroke Does the patient have a stroke diagnosis?: No Physical Exam Vital Signs: Vital Signs: Last Vital Signs Temp 98.0 F 08/11/21 11:20 Pulse 30 L 08/11/21 11:20 Resp 16 08/11/21 11:20 BP 121/55 L 08/11/21 11:20 Pulse Ox 98 08/11/21 11:20 BMI result Body Mass Index 23.0 Const: Other: resting comfortably no acute distress Resp: Other: clear to auscultation bilaterally no rales rhonchi wheezes Cardio: Other: no S4; positive S1-S2; no S3 murmurs rubs or gallops GI: Other: soft nontender nondistended normoactive bowel sounds x4 quadrants. No rebound or guarding Extrem: Other: no edema bilaterally DS: Data Data Completed and Pending Completed studies during hospitalization [Text1]: Procedures Plain Radiography of Bilateral Renal Arteries using Low Osmolar Contrast (06/03/20) Repair Left Hand Skin, External Approach (08/27/20) Labs on day of discharge: Laboratory Results - last 24 hr 08/11/21 08/11/21 04:35 04:35 WBC 5.2 RBC 3.66 L Hgb 11.4 L Hct 34.0 L MCV 92.9 MCH 31.1 MCHC 33.5 RDW 12.3 Plt Count 132 L MPV 10.9 Immature Gran % (Auto) 0.8 H Neut % (Auto) 60.9 Lymph % (Auto) 27.3 [place] % (Auto) 8.9 Eos % (Auto) 1.7 Baso % (Auto) 0.4 Lymph # (Auto) 1.4 [place] # (Auto) 0.5 Eos # (Auto) 0.1 Baso # (Auto) 0.0 Abs Immat Gran (auto) 0.04 H Absolute Neuts (auto) 3.2 Absolute Nucleated RBC 0.000 Nucleated RBC % (auto) 0.0 Sodium 144 Potassium 3.8 Chloride 116 H Carbon Dioxide 19 L Anion Gap 13 BUN 27 H Creatinine 1.77 H Estim Creat Clear Calc 22.7 Estimated GFR 28 Fasting Glucose 150 H Calcium 7.9 L Total Bilirubin 0.5 AST 22 ALT 19 Alkaline Phosphatase 86 Total Protein 5.4 L Albumin 3.1 L Preliminary micro results at discharge 08/08/21 17:39 Blood Culture - Preliminary Blood - Venous No growth after 48 hours. 08/08/21 17:42 Blood Culture - Preliminary Blood - Venous No growth after 48 hours. Discharge Plan Discharge Patient Disposition: Home Health Service Discharge Diagnosis: COVID-19/UTI Referrals: [facility] [Other] - 1 Week Jerry Hart, [employer] [Primary Care Provider] - 1 Week Discharge Medications: New cefuroxime axetil 250 mg tablet 250 mg PO BID 7 Days Qty: 14 RF: 0 Continued atorvastatin 80 mg tablet 80 mg PO BEDTIME 90 Days Qty: 90 RF: 2 aspirin 81 mg tablet,chewable 81 mg PO DAILY 90 Days Qty: 90 RF: 1 thiamine HCl (vitamin B1) 100 mg tablet 100 mg PO DAILY 90 Days Qty: 90 RF: 0 cyanocobalamin (vitamin B-12) 1,000 mcg capsule 1,000 mcg PO DAILY 90 Days Qty: 90 RF: 0 cholecalciferol (vitamin D3) 50 mcg (2,000 unit) capsule 50 mcg PO DAILY 90 Days Qty: 90 RF: 0 sennosides [Senna Laxative] 8.6 mg tablet 17.2 mg PO BEDTIME 90 Days Qty: 180 RF: 1 nifedipine 60 mg tablet extended release 24hr 60 mg PO DAILY 90 Days Qty: 90 RF: 1 lisinopril 40 mg tablet 40 mg PO BEDTIME RF: 0 Discharge Orders: Discharge Order (Routine); Ordered 08/11/21 Ordered By: Sid Elizabeth Diet: advance to usual diet Activity on Discharge: As tolerated Stand Alone Forms: Patient Portal Discharge page Care Plan Goals: complete Ceftin twice a day x7 days Health Concerns: follow-up urinalysis with her PCP in 2-3 weeks Plan of Treatment: home with [facility] for home PT Assessment: as per discharge summary
--- NOTE | 2021-08-11 14:09 | W.MHC.F2F ---
Service Date Service Date: 08/11/21 Encounter Date of encounter: 08/11/21 Encounter: Inpatient hospitalization Reasons for Services Signs and symptoms assessed: unsteady gait and weakness Reason for physical therapy: home safety and mobility, therapeutic exercises and restore joint function Homebound: Leaving the home is medically contraindicated at this time without the asist of a device and/or another person due th the listed conditions above and below. Reason homebound: unsteady gait / fall risk and poor balance / fall risk Certification: Based on the above findings, I certify that this patient is confined to the home and needs intermittent nursing home care, physical therapy and/or speech therapy, or continues to need occupational therapy. The patient is under my care, and I have initiated the establishment of the plan of care. The patient will be followed by a physician who will periodically review the plan of care.
[2021-08-11 15:40] VITALS: BP 130/50; RESP 18; TEMP 36.2; O2SAT 98
--- NOTE | 2021-08-15 09:51 | MHC.CM.PN ---
Per notification from NA, several calls made to [facility], to schedule services which were not returned.
== END 2021-08-11 16:22 | disposition home health service (06) | DRG 178 ==
LOC: HO.ED 15:48 → HO.EDOVER 17:17 → HO.IMC 08-09 19:51
PROVIDERS: Admitting Provider Hospitalist; Emergency Provider Emergency Medicine; PCP Nurse Practitioner Family; Visit Provider Hospitalist
DX: U07.1 COVID-19 (principal); N39.0 Urinary tract infection, site not specified; I44.2 Atrioventricular block, complete; E87.2 Acidosis; E11.40 Type 2 diabetes mellitus with diabetic neuropathy, unspecified; B96.20 Unspecified Escherichia coli [E. coli] as the cause of diseases classified elsewhere; I12.9 Hypertensive chronic kidney disease with stage 1 through stage 4 chronic kidney disease, or unspecified chronic kidney disease; E11.22 Type 2 diabetes mellitus with diabetic chronic kidney disease; E87.6 Hypokalemia; N18.9 Chronic kidney disease, unspecified; F17.210 Nicotine dependence, cigarettes, uncomplicated; Z71.6 Tobacco abuse counseling; Z79.82 Long term (current) use of aspirin; Z79.899 Other long term (current) drug therapy; Z66 Do not resuscitate
CPT/HCPCS: 36415; 80048; 80053; 80076; 81001; 83605; 85025; 87040; 87086; 87088; 87186; 87635; 93005; 97162; 99285; J0696

== ENCOUNTER 2022-07-24 08:46 | Emergency (ER) | payer MEDICARE, SELFPAY ==
--- NOTE | ~2022-07-24 | XR_ITS ---
EXAMINATION: XR CHEST CLINICAL INFORMATION: SOB COMPARISON: Chest x-ray 02/14/2021 TECHNIQUE: Frontal view of the chest was obtained. FINDINGS: The lungs are well-expanded and clear of acute process. The heart size and pulmonary vascularity is normal. There are median sternotomy sutures and mediastinal francia from previous CABG. No gross bony abnormality seen. XR/XR chest 1V IMPRESSION: Unremarkable chest exam. No change from 02/14/2021.
--- NOTE | 2022-07-24 08:50 | ECG_ITS ---
Test Reason : weakness Blood Pressure : / mmHG Vent. Rate : 033 BPM Atrial Rate : 000 BPM P-R Int : 000 ms QRS Dur : 128 ms QT Int : 538 ms P-R-T Axes : 000 -60 -09 degrees QTc Int : 398 ms Normal sinus rhythm with complete heart block Left axis deviation Right bundle branch block Abnormal ECG When compared with ECG of 08-AUG-2021 12:48, CHB is now present Vent. rate has decreased BY 28 BPM Referred By: Sandra Brady Electronically Signed By:FABIEN BLOOM MD
--- NOTE | 2022-07-24 08:50 | ED.SOB ---
HPI - SOB/Dyspnea General Chief Complaint: Weakness Stated Complaint: SOB Time Seen by Provider: 07/24/22 08:49 Source: patient, EMS and old records reviewed Mode of arrival: EMS Limitations: no limitations History of Present Illness HPI Narrative: 76-year-old female with a history of CAD s/p CABG 1995, anxiety, type 2 diabetes with diabetic neuropathy, poorly controlled hypertension, history of UTI, stroke 08/2020, CKD, active smoker and noncompliance who presents to the ER via EMS for evaluation of weakness, dizziness and SOB that started this morning when she was out walking. She states she was walking down the street when she felt weak, so she sat on a stoop. She was dizzy and SOB. She states she tried to stand back up but couldn't because her legs wouldn't let her. A neighbor called 911. [facility]SS for EMS. On arrival to the ER patient's HR 30s and BP 90/50s with MAP 76, patient feeling back to baseline. MD elicited complaint: shortness of breath Pertinent past history: COPD and diabetes Onset (ago): minute(s) Context: occurred during exertion Timing: now resolved Severity: severe Exacerbating factors: movement Relieving factors: rest and upright position Known history of: COPD and diabetes Associated symptoms: dizziness and lightheadedness Treatment prior to arrival: none Related Data Home oxygen amount: none Home Medications Medication Instructions Recorded Confirmed ergocalciferol (vitamin D2) 1,000 2,000 unit PO DAILY 07/24/22 07/24/22 unit capsule Previous Rx's Medication Instructions Recorded aspirin 81 mg chewable tablet 81 mg PO DAILY 90 days #90 tabs 01/18/21 cyanocobalamin (vitamin B-12) 1,000 mcg PO DAILY 90 days #90 caps 01/20/21 1,000 mcg capsule thiamine HCl (vitamin B1) 100 mg 100 mg PO DAILY 90 days #90 tabs 01/20/21 tablet lisinopril 40 mg tablet 40 mg PO BEDTIME 90 days #90 tabs 04/20/22 hydrochlorothiazide 12.5 mg capsule 12.5 mg PO DAILY 30 days #30 caps 06/16/22 lorazepam 1 mg tablet (Ativan) 1 mg PO BEDTIME PRN Anxiety 30 07/20/22 days #30 tabs nifedipine 60 mg tablet,extended 60 mg PO DAILY 90 days #90 tabs 07/20/22 release 24 hr sennosides 8.6 mg tablet (Senna 17.2 mg PO BEDTIME 90 days #180 07/21/22 Laxative) tabs atorvastatin 80 mg tablet 80 mg PO BEDTIME 90 days #90 tabs 07/22/22 Allergies Allergy/AdvReac Type Severity Reaction Status Date / Time No Known Allergies Allergy Verified 01/05/22 13:04 Review of Systems Review of Systems: Constitutional: No Fever, No Chills ENT/Mouth: No sore throat, No Rhinorrhea, No Swallowing Difficulty Eyes: No Eye Pain, No Swelling, No Redness Cardiovascular: No Chest Pain, + SOB, No Orthopnea, No Edema Respiratory: No Cough, No Sputum, No Wheezing, No dyspnea Gastrointestinal: No Nausea, No Vomiting, No Diarrhea, No abdominal Pain Genitourinary: No Dysuria, No Urinary Frequency, No Hematuria Musculoskeletal: No joint pain, No Myalgias Skin: No Skin Lesions, No rash Neuro: + Weakness, No Numbness, + Dizziness, No Headache Psych: + Anxiety/Panic, No Depression Heme/Lymph: No Bruising, No Lymphadenopathy Endocrine: No Polyuria, No Polydipsia [facility] Past Medical History Medical History Anxiety Bradycardia, sinus CAD (coronary artery disease) Colonoscopy refused Complete heart block CVA (cerebral vascular accident) Diabetic neuropathy, type II diabetes mellitus Fall HTN (hypertension) Hypertension Mammogram declined Noncompliance Surgical History Aortocoronary bypass status Social History Social History Household Members: Family Household Members Other:: 2 Housing: House Do you presently have visiting nurse or other home services: No Alcohol intake: never Patient Tobacco Use Status: Former Tobacco user Cigarettes Per Day: 1 Years Smoked: 60 Smoked in Last 30 Days: Yes e-Cigarette/Vaping Use: Never Used Second Hand Smoke Exposure: No Use of substances other than those prescribed or required for medical reasons: No Advance Directives: Yes Advance Directives on File: Yes Advance Directives Date on File: 08/27/20 service: No Current occupational status: retired Cognitive needs: No Hearing needs: No Vision needs: No Physical Exam Vital Signs: Vital Signs: Last Vital Signs Temp 97.8 F 07/24/22 16:35 Pulse 28 L 07/24/22 16:35 Resp 18 07/24/22 16:35 BP 178/55 H 07/24/22 16:35 Pulse Ox 99 07/24/22 16:35 O2 Del Method 07/24/22 16:35 BMI result Body Mass Index 23.0 Appearance: Alert elderly female sitting up on the stretcher. Oriented X3. No acute distress. Eyes: Pupils equal, round and reactive to light. ENT: Pharynx normal. Neck: Normal inspection. Neck supple. CVS: Bradycardic, irregular Pulses normal. Respiratory: No respiratory distress. Breath sounds normal. Abdomen: Soft and nontender. +BS x4 Skin: Skin warm and dry. Normal skin color. Normal skin turgor. No rashes. Extremities: No lower extremity edema. Cool hands and feet but extremities are warm and well perfused otherwise, 2+ distal pulses. Neuro: Oriented X 3. No motor deficit. No sensory deficit. Strength equal and symmetrical throughout. Normal speech and cognition Course Course Course Narrative: 76 y/o female with history of CAD s/p CABG 1995, anxiety, type 2 diabetes with diabetic neuropathy, poorly controlled hypertension, history of UTI, stroke 08/2020, CKD, active smoker and noncompliance who presents to the ER for evaluation of transient dizziness, shortness of breath and weakness. On arrival to the ER she is feeling better. Her heart rates are in the 30s what but appears to be complete heart block on the monitor. Her blood pressure is 90/50 some episode any 6, she is mentating normally. Repeat blood pressure 160 systolic x2. Heart rate remained in the 30s. Multiple EKGs done with artifact and difficult to interpret. Dr. Martínez tigertexted the images. Reevaluation(s) Reevaluation #1: EKG confirmed with cardiology to be complete heart block. Dr. Martínez recommending NPO for PPM. BP remains stable 160-170's systolic. AAO x3. Home BP meds include nifedipine, HCTZ, lisinopril. no beta ana maría. Results and plan d/w patient who is in agreement. Time: 09:50 Reevaluation #2: Per Dr. Martínez our facility is not able to offer pacemaker at this time. Recommending transfer to [facility] - transfer line called. Patient and daughter Pia [phone] updated on plan of care. UA +. no leukocytosis or fevers. Will give dose of Rocephin, check lactic and cultures. Time: 10:22 Reevaluation #3: Spoke with Publishing Specialist Dr. Carson at [facility] who accepts the patient for pacemaker today. If not able to take to [facility] today, she is recommending patient stay here for the weekend with plan to get PPM Wednesday. There are discharges from the cardiology floors now and patient will get priority to go to [facility] for pacer today. Time: 10:38 Additional Reevaluation(s): UA + for infecation. No leukocytosis or fever. Lactic and cultures ordered, IV rocephin ordered. Troponin 118.4. Will trend. On ASA. No chest pain. 12:39 - still no call from [facility] for a bed. HR 27-28 with SBP in the 160s, she feels at her baseline. Dr. Simmons spoke with [facility] who states PPM cannot be done by thoracic until Wednesday. Physician observation started at 15:15. Patient placed in physician observation because patient is awaiting a bed at [facility] for pacemaker placement. Cold [facility] again and there was no bed available.. At the time observation was started patient's vital signs were stable, heart rate remains 28 with blood pressures 160s to 170s.. Patient is alert and oriented. Neuro exam is non-focal. CV: Bradycardic and lungs are clear. Will continue to monitor. 15:40 - called and spoke with Ida and no bed available for pacemaker today. 17:50 - patient has a bed at [facility] and will be transferred ACLS YUE. BP remains stable. AAO x3, not symptomatic at this time. Consultations Consultation #1: Dr. Martínez Cardiology Consultation #2: Tia Bailon - Thoracic Medications Administered Discontinued Medications Generic Name Dose Route Start Last Admin Trade Name Freq PRN Reason Stop Dose Admin Sodium Chloride 1,000 mls @ 999 mls/hr 07/24/22 09:15 07/24/22 11:46 Ns IVCONT 07/24/22 10:15 Infused .Q1H1M BROWN Infusion Ceftriaxone Sodium 1 gm/ 50 mls @ 100 mls/hr 07/24/22 10:19 07/24/22 11:46 Sodium Chloride IV 07/24/22 10:48 Infused ONCE ONE Infusion Medical Decision Making Consult Healthcare Provider Management of the patient was discussed with: Meat Puller Dr. Martínez Lab Data MDM Lab Attestation statement: I reviewed the patient's lab results. Result Diagrams: 07/24/22 09:31 07/24/22 09:57 Labs: Lab Results 07/24/22 07/24/22 07/24/22 Range/Units 09:31 09:31 09:31 WBC 10.1 (4.8-10.8) X10*3/uL RBC 3.72 L (4.20-5.50) X10*6/uL Hgb 11.3 L (12.0-16.0) g/dl Hct 33.7 L (37.0-47.0) % MCV 90.6 (80.0-98.0) fL MCH 30.4 (27.0-33.0) pg MCHC 33.5 (31.0-35.0) g/dl RDW 12.4 (11.0-16.0) % Plt Count 121 L (160-400) X10*3/uL MPV 10.9 (9.4-12.3) fL Immature Gran % (Auto) 0.3 (0.0-0.4) % Neut % (Auto) 85.1 H (45-73) % Lymph % (Auto) 9.1 L (20-40) % [place] % (Auto) 3.5 (2-11) % Eos % (Auto) 1.6 (0-4) % Baso % (Auto) 0.4 (0-2) % Lymph # (Auto) 0.9 L (1.2-4.9) X10*3/uL [place] # (Auto) 0.4 (0.1-1.2) X10*3/uL Eos # (Auto) 0.2 (0.0-0.4) X10*3/uL Baso # (Auto) 0.0 (0.0-0.2) X10*3/uL Abs Immat Gran (auto) 0.03 (0.00-0.03) X10*3/uL Absolute Neuts (auto) 8.6 H (2.0-8.3) x10*3/uL Absolute Nucleated RBC 0.000 (0.0-0.012) X10*3/uL Nucleated RBC % (auto) 0.0 (0.0-0.2) /100WBC Sodium (135-145) mmol/L Potassium (3.3-5.1) mmol/L Chloride (96-108) mmol/L Carbon Dioxide (22-29) mmol/L Anion Gap (12-20) BUN (9-16) mg/dL Creatinine (0.5-1.4) mg/dL Estim Creat Clear Calc Estimated GFR Random Glucose (60-115) mg/dL Lactic Acid (0.5-2.0) mmol/L Lactic Acid F/U @ 2Hr (0.5-2.0) mmol/L Calcium (8.4-10.2) mg/dL Magnesium (1.6-2.6) mg/dL Total Bilirubin (0.0-1.0) mg/dL Direct Bilirubin (0.0-0.5) mg/dL AST (5-31) U/L ALT (0-31) U/L Alkaline Phosphatase (39-117) U/L Troponin I High Sens 118.4 H* (<3.5-17.0) ng/L B-Natriuretic Peptide 65 (<100) pg/mL Total Protein (6.5-8.0) g/dL Albumin (3.5-5.0) g/dL Urine Color Urine Appearance Urine pH (5.0-9.0) Ur Specific [place] (1.005-1.025) Urine Protein (Neg-Trace) mg/dL Urine Glucose (UA) (Negative) mg/dL Urine Ketones (Negative) mg/dL Urine Blood (Negative) Urine Nitrite (Negative) Ur Leukocyte Esterase (Negative) Urine RBC (0-2) /HPF Urine WBC (0-5) /HPF Ur Squamous Epith Cells (0-2) /HPF Urine Bacteria (None Seen) Hyaline Casts (0-2) /LPF Influenza Type A (PCR) (Negative) Influenza Type B (PCR) (Negative) RSV RNA Qual (PCR) (Negative) SARS-CoV-2 RNA (RT-PCR) (Negative) 12/30/22 12/30/22 12/30/22 Range/Units 09:31 09:57 09:58 WBC (4.8-10.8) X10*3/uL RBC (4.20-5.50) X10*6/uL Hgb (12.0-16.0) g/dl Hct (37.0-47.0) % MCV (80.0-98.0) fL MCH (27.0-33.0) pg MCHC (31.0-35.0) g/dl RDW (11.0-16.0) % Plt Count (160-400) X10*3/uL MPV (9.4-12.3) fL Immature Gran % (Auto) (0.0-0.4) % Neut % (Auto) (45-73) % Lymph % (Auto) (20-40) % [place] % (Auto) (2-11) % Eos % (Auto) (0-4) % Baso % (Auto) (0-2) % Lymph # (Auto) (1.2-4.9) X10*3/uL [place] # (Auto) (0.1-1.2) X10*3/uL Eos # (Auto) (0.0-0.4) X10*3/uL Baso # (Auto) (0.0-0.2) X10*3/uL Abs Immat Gran (auto) (0.00-0.03) X10*3/uL Absolute Neuts (auto) (2.0-8.3) x10*3/uL Absolute Nucleated RBC (0.0-0.012) X10*3/uL Nucleated RBC % (auto) (0.0-0.2) /100WBC Sodium 143 (135-145) mmol/L Potassium 4.3 (3.3-5.1) mmol/L Chloride 110 H (96-108) mmol/L Carbon Dioxide 21 L (22-29) mmol/L Anion Gap 16 (12-20) BUN 37 H (9-16) mg/dL Creatinine 1.98 H (0.5-1.4) mg/dL Estim Creat Clear Calc 20.0 Estimated GFR 25 Random Glucose 165 H (60-115) mg/dL Lactic Acid (0.5-2.0) mmol/L Lactic Acid F/U @ 2Hr (0.5-2.0) mmol/L Calcium 9.1 D (8.4-10.2) mg/dL Magnesium 1.8 (1.6-2.6) mg/dL Total Bilirubin 0.6 (0.0-1.0) mg/dL Direct Bilirubin 0.3 (0.0-0.5) mg/dL AST 25 (5-31) U/L ALT 19 (0-31) U/L Alkaline Phosphatase 87 (39-117) U/L Troponin I High Sens (<3.5-17.0) ng/L B-Natriuretic Peptide (<100) pg/mL Total Protein 6.1 L (6.5-8.0) g/dL Albumin 3.6 (3.5-5.0) g/dL Urine Color Yellow Urine Appearance Turbid Urine pH 7.0 (5.0-9.0) Ur Specific [place] 1.015 (1.005-1.025) Urine Protein 300 (3+) H (Neg-Trace) mg/dL Urine Glucose (UA) Negative (Negative) mg/dL Urine Ketones Trace (Negative) mg/dL Urine Blood Negative (Negative) Urine Nitrite Positive H (Negative) Ur Leukocyte Esterase Moderate (2+) H (Negative) Urine RBC 3-5 H (0-2) /HPF Urine WBC 21-50 H (0-5) /HPF Ur Squamous Epith Cells 0-2 (0-2) /HPF Urine Bacteria 4+ (None Seen) Hyaline Casts 11-20 (0-2) /LPF Influenza Type A (PCR) NEGATIVE (Negative) Influenza Type B (PCR) NEGATIVE (Negative) RSV RNA Qual (PCR) NEGATIVE (Negative) SARS-CoV-2 RNA (RT-PCR) NEGATIVE (Negative) 07/24/22 07/24/22 Range/Units 10:35 13:47 WBC (4.8-10.8) X10*3/uL RBC (4.20-5.50) X10*6/uL Hgb (12.0-16.0) g/dl Hct (37.0-47.0) % MCV (80.0-98.0) fL MCH (27.0-33.0) pg MCHC (31.0-35.0) g/dl RDW (11.0-16.0) % Plt Count (160-400) X10*3/uL MPV (9.4-12.3) fL Immature Gran % (Auto) (0.0-0.4) % Neut % (Auto) (45-73) % Lymph % (Auto) (20-40) % [place] % (Auto) (2-11) % Eos % (Auto) (0-4) % Baso % (Auto) (0-2) % Lymph # (Auto) (1.2-4.9) X10*3/uL [place] # (Auto) (0.1-1.2) X10*3/uL Eos # (Auto) (0.0-0.4) X10*3/uL Baso # (Auto) (0.0-0.2) X10*3/uL Abs Immat Gran (auto) (0.00-0.03) X10*3/uL Absolute Neuts (auto) (2.0-8.3) x10*3/uL Absolute Nucleated RBC (0.0-0.012) X10*3/uL Nucleated RBC % (auto) (0.0-0.2) /100WBC Sodium (135-145) mmol/L Potassium (3.3-5.1) mmol/L Chloride (96-108) mmol/L Carbon Dioxide (22-29) mmol/L Anion Gap (12-20) BUN (9-16) mg/dL Creatinine (0.5-1.4) mg/dL Estim Creat Clear Calc Estimated GFR Random Glucose (60-115) mg/dL Lactic Acid 3.1 H* (0.5-2.0) mmol/L Lactic Acid F/U @ 2Hr 1.8 (0.5-2.0) mmol/L Calcium (8.4-10.2) mg/dL Magnesium (1.6-2.6) mg/dL Total Bilirubin (0.0-1.0) mg/dL Direct Bilirubin (0.0-0.5) mg/dL AST (5-31) U/L ALT (0-31) U/L Alkaline Phosphatase (39-117) U/L Troponin I High Sens (<3.5-17.0) ng/L B-Natriuretic Peptide (<100) pg/mL Total Protein (6.5-8.0) g/dL Albumin (3.5-5.0) g/dL Urine Color Urine Appearance Urine pH (5.0-9.0) Ur Specific [place] (1.005-1.025) Urine Protein (Neg-Trace) mg/dL Urine Glucose (UA) (Negative) mg/dL Urine Ketones (Negative) mg/dL Urine Blood (Negative) Urine Nitrite (Negative) Ur Leukocyte Esterase (Negative) Urine RBC (0-2) /HPF Urine WBC (0-5) /HPF Ur Squamous Epith Cells (0-2) /HPF Urine Bacteria (None Seen) Hyaline Casts (0-2) /LPF Influenza Type A (PCR) (Negative) Influenza Type B (PCR) (Negative) RSV RNA Qual (PCR) (Negative) SARS-CoV-2 RNA (RT-PCR) (Negative) Independent Interpretation I performed an independent interpretation of an: EKG Interpretation: 9:13 - HR 33 bpm, artifact present, complete heart block, QRS 128mc, RBBB 9:25 - HR 32 bpm, artifact present, complete heart block, RBBB, QRS 124ms 9:31 - HR 33 bpm, artifact present V1 specifically, complete heart block, RBBB Independent Historian Clinical information obtained from an independent historian. History obtained from or confirmed by: Other (daughter Pia) External Record Review External record reviewed: Inpatient record and Prior outpatient labs Chronic Conditions Patient?s care impacted by: Diabetes and Hypertension Critical Care Time Critical Care Time Critical Care Time: Yes Total Critical Care Time: 61 Attestation: I have personally provided critical care time exclusive of time spent on separately billable procedures. Time includes review of lab data, radiology results, discussion with consultants, and monitoring for potential decompensation. Intervention performed as documented. Discharge Plan Discharge Clinical Impression: Complete heart block, Acute UTI Patient Disposition: [facility] Transfer Details: [facility] Prescriptions: No Action aspirin 81 mg tablet,chewable 81 mg PO DAILY 90 Days Qty: 90 1RF thiamine HCl (vitamin B1) 100 mg tablet 100 mg PO DAILY 90 Days Qty: 90 0RF cyanocobalamin (vitamin B-12) 1,000 mcg capsule 1,000 mcg PO DAILY 90 Days Qty: 90 0RF lisinopril 40 mg tablet 40 mg PO BEDTIME 90 Days Qty: 90 1RF hydrochlorothiazide 12.5 mg capsule 12.5 mg PO DAILY 30 Days Qty: 30 0RF lorazepam [Ativan] 1 mg tablet 1 mg PO BEDTIME PRN (Reason: Anxiety) 30 Days Qty: 30 0RF nifedipine 60 mg tablet extended release 24hr 60 mg PO DAILY 90 Days Qty: 90 1RF sennosides [Senna Laxative] 8.6 mg tablet 17.2 mg PO BEDTIME 90 Days Qty: 180 0RF atorvastatin 80 mg tablet 80 mg PO BEDTIME 90 Days Qty: 90 2RF Vitamin D2 1,000 unit Capsule 2,000 unit PO DAILY
[2022-07-24 08:57] VITALS: BP 138/80; BP 98/47; PULSE 33; PULSE 72; RESP 22; O2SAT 96; O2SAT 99; BMI 23.0
--- NOTE | 2022-07-24 09:30 | ECG_ITS ---
Test Reason : weakness Blood Pressure : / mmHG Vent. Rate : 139 BPM Atrial Rate : 000 BPM P-R Int : 000 ms QRS Dur : 066 ms QT Int : 306 ms P-R-T Axes : 000 102 173 degrees QTc Int : 465 ms Normal sinus rhythm with complete heart block Right bundle branch block Left anterior fascicular block Abnormal ECG When compared with ECG of 24-JUL-2022 09:13, No significant changes seen Referred By: Sandra Brady Electronically Signed By:FABIEN BLOOM MD
[2022-07-24 09:41] LABS: MANUAL DIFF FLAG NO
[2022-07-24 09:53] LABS: Basophils Percent Auto 0.4 % (0-2); Eosinophils Absolute Auto 0.2 X10*3/uL (0.0-0.4); Eosinophils Percent Auto 1.6 % (0-4); Hematocrit 33.7 % (37.0-47.0); Hemoglobin 11.3 g/dl (12.0-16.0); Imm Gran Abs Auto 0.03 X10*3/uL (0.00-0.03); Imm Gran Pct Auto 0.3 % (0.0-0.4); Lymphocytes Absolute Auto 0.9 X10*3/uL (1.2-4.9); Lymphocytes Percent Auto 9.1 % (20-40); Mean Corpuscular HGB Conc 33.5 g/dl (31.0-35.0); Mean Corpuscular Hemoglobin 30.4 pg (27.0-33.0); Mean Corpuscular Volume 90.6 fL (80.0-98.0); Mean Platelet Volume 10.9 fL (9.4-12.3); Monocytes Absolute Auto 0.4 X10*3/uL (0.1-1.2); Monocytes Percent Auto 3.5 % (2-11); Neutrophils Absolute Auto 8.6 x10*3/uL (2.0-8.3); Neutrophils Percent Auto 85.1 % (45-73); Platelet Count 121 X10*3/uL (160-400); Red Blood Count 3.72 X10*6/uL (4.20-5.50); Red Cell Distribution Width 12.4 % (11.0-16.0); White Blood Count 10.1 X10*3/uL (4.8-10.8)
[2022-07-24] MEDS: 0.9 % Sodium Chloride 1,000 ML 999 ML IVCONT (10:03)
[2022-07-24 10:09] LABS: Appearance Urine Turbid; Color Urine Yellow; Glucose Urine UA Negative (Negative); Leukocyte Esterase Urine Moderate (2+) (Negative); Nitrite Urine Positive (Negative); Specific Gravity - Urine 1.015 (1.005-1.025); UMIC TRIGGER UACC YES; Urine Blood Negative (Negative); Urine Ketones Trace mg/dL (Negative); Urine Protein 300 (3+) mg/dL (Neg-Trace)
[2022-07-24 10:21] LABS: B Type Natriuretic Peptide 65 pg/mL (<100)
[2022-07-24 10:23] LABS: Bacteria Urine 4+ (None Seen); Squamous Epithelial Cell Urine 0-2 /HPF (0-2); UACC Culture Trigger YES; WBC Urine 21-50 /HPF (0-5)
[2022-07-24 10:29] LABS: Alanine Aminotransferase 19 U/L (0-31); Albumin Level 3.6 g/dL (3.5-5.0); Alkaline Phosphatase 87 U/L (39-117); Anion Gap 16 (12-20); Aspartate Amino Transferase 25 U/L (5-31); Bilirubin Direct 0.3 mg/dL (0.0-0.5); Bilirubin Total 0.6 mg/dL (0.0-1.0); Blood Urea Nitrogen 37 mg/dL (9-16); Calcium 9.1 mg/dL (8.4-10.2); Carbon Dioxide 21 mmol/L (22-29); Chloride 110 mmol/L (96-108); Estimated Glomerular Filt Rate 25; Glucose Random 165 mg/dL (60-115); Magnesium 1.8 mg/dL (1.6-2.6); Potassium 4.3 mmol/L (3.3-5.1); Sodium 143 mmol/L (135-145); Total Protein 6.1 g/dL (6.5-8.0)
[2022-07-24] MEDS: cefTRIAXone sodium 1 GM in 0.9 % Sodium Chloride 50 ML IV (10:40)
[2022-07-24 10:43] LABS: Influenza A PCR NEGATIVE (Negative); Influenza B PCR NEGATIVE (Negative); Resp Syncy Virus RNA Qual PCR NEGATIVE (Negative); SARS COV2 PCR INHOUSE NEGATIVE (Negative)
[2022-07-24 11:00] LABS: Troponin-I High Sensitivity 118.4 ng/L (<3.5-17.0)
--- NOTE | 2022-07-24 11:07 | PHA.MEDREC ---
Pharmacy Consult ? Medication Reconciliation Pharmacy has completed the medication reconciliation. Called daughter Pia ([phone]) and confirmed meds. Patient does not know any of their meds.
[2022-07-24 11:22] VITALS: BP 164/45; PULSE 27; RESP 13; O2SAT 97
[2022-07-24 12:28] LABS: Lactic Acid 3.1 mmol/L (0.5-2.0)
[2022-07-24 12:39] LABS: Reflex Lactate? Lactic Acid Added
[2022-07-24 14:17] LABS: ~Lactic Acid-LAB USE ONLY 1.8 mmol/L (0.5-2.0)
[2022-07-24 14:21] VITALS: BP 178/70; PULSE 28; RESP 13; O2SAT 98
[2022-07-24 16:35] VITALS: BP 178/55; PULSE 28; RESP 18; TEMP 36.6; O2SAT 99
--- NOTE | 2022-07-24 18:42 | PC.NURSE ---
report given to RN at [facility]
== END 2022-07-24 18:42 | disposition short-term general hospital (02) ==
PROVIDERS: Physician Assistant; Emergency Provider Student in an Organized Health Care Education/Training Program; PCP Nurse Practitioner Family
DX: I44.2 Atrioventricular block, complete (principal); N39.0 Urinary tract infection, site not specified; R06.02 Shortness of breath; I25.10 Atherosclerotic heart disease of native coronary artery without angina pectoris; E11.9 Type 2 diabetes mellitus without complications; Z20.822 Contact with and (suspected) exposure to COVID-19; Z91.14 Patient's other noncompliance with medication regimen; Z79.899 Other long term (current) drug therapy; Z87.891 Personal history of nicotine dependence
CPT/HCPCS: 0241U; 36415; 71045; 80048; 80076; 81001; 83605; 83735; 83880; 84484; 85025; 87040; 87086; 87088; 87186; 93005; 96361; 96374; 99284; J0696

== ENCOUNTER 2022-08-28 07:19 | Emergency (ER) | payer MEDICARE, SELFPAY ==
--- NOTE | ~2022-08-28 | CT_ITS ---
EXAMINATION: CT ABDOMEN AND PELVIS WITHOUT CONTRAST CLINICAL INFORMATION: Nausea, diarrhea, upper quadrant pain. COMPARISON: Chest radiograph 07/24/2022, CT abdomen and pelvis noncontrast 08/27/2020 TECHNIQUE: Multidetector volumetric imaging was performed from the superior aspect of the liver through the pubic symphysis. No oral or intravenous contrast. Sagittal and coronal reformatted images were obtained on the technologist's workstation. This CT examination was performed using dose optimization techniques as appropriate, variously including the following: *Automated exposure control *Adjustment of mA and/or kV according to patient size (this includes techniques or standardized protocols for targeted exams where dose is matched to indication/reason for exam; i.e. extremities or head) *Use of iterative reconstruction technique DLP: 475 mGy-cm FINDINGS: LUNG BASES: Small bibasilar effusions with bibasilar subsegmental atelectasis. LIVER, GALLBLADDER, AND BILIARY TREE: Liver is normal in size and smooth in contour with homogeneous parenchyma. No focal parenchymal lesion on noncontrast exam. No intrahepatic ductal dilatation. The gallbladder is dilated, measuring 5 cm in diameter. There is no visible wall thickening, dependent sludge, or mineralized calculi. No pericholecystic fluid or focal inflammatory changes. There are 2 chronic coarse calcifications close to the distal common duct, likely pancreatic head and similar to prior CT 08/27/2020 (larger 0.8 cm and smaller 0.5 cm). PANCREAS: Atrophic. No pancreatic ductal dilatation or retroperitoneal effusion. SPLEEN: Unremarkable. ADRENAL GLANDS: There is chronic bilateral fullness of the adrenals, possibly adrenal hyperplasia, similar to prior CT 08/27/2020. KIDNEYS AND URETERS: No hydronephrosis, hydroureter, or perinephric stranding. No left urinary tract calculi. Right kidney has nonobstructing calculus approximately 3 mm lower pole. Exophytic cyst right renal lower pole measures 6 HU attenuation in approximately 3 x 4 cm in size. Prior measurement 2.8 x 3.4 cm. No additional imaging follow-up recommended. BLADDER: Unremarkable. GASTROINTESTINAL TRACT: Small sliding hiatal hernia. No bowel obstruction, pneumatosis, or free air. Normal appendix. No ascites or fluid collection. ABDOMINAL WALL: No significant hernia is appreciated. LYMPH NODES: No lymphadenopathy. VASCULAR: Unremarkable. PELVIC VISCERA: Unremarkable. OSSEOUS STRUCTURES: Unremarkable. CT/CT abdomen pelvis wo IV con IMPRESSION: 1. Dilated gallbladder without wall thickening, sludge, or mineralized calculi. No intrahepatic ductal dilatation. Chronic coarse calcifications close to the distal common duct similar to prior CT 08/27/2020, likely in pancreatic head. No pancreatic ductal dilatation or retroperitoneal effusion. 2. No hydronephrosis or perinephric stranding. Nonobstructing right renal calculus 3 mm. 3. Small bilateral pleural effusions with bibasilar subsegmental atelectasis. 4. No bowel obstruction or ascites. Normal appendix.
--- NOTE | ~2022-08-28 | US_ITS ---
EXAMINATION: US ABDOMEN LIMITED CLINICAL INFORMATION: Upper quadrant pain, nausea. Distended gallbladder on CT. COMPARISON: CT abdomen 08/28/2022, 08/27/2020 TECHNIQUE: Real-time imaging of the right upper quadrant abdominal viscera. FINDINGS: PANCREAS: Pancreas is homogeneous. There is no visible mass or ductal dilatation or retroperitoneal effusion. The 2 coarse calcifications noted on CT near the pancreatic head are not visualized with certainty. LIVER: Normal. The liver is normal in size. The liver contour is normal. Parenchymal echogenicity is normal. No focal hepatic lesion. There is no intrahepatic biliary duct dilatation seen. GALLBLADDER: The gallbladder is dilated measuring 4.9 cm in diameter. There is no wall thickening or subserosal edema or pericholecystic fluid. There is a 6 mm dependent calculus. A circumscribed smooth polypoid nonmobile lesion is present projecting into the lumen measuring 1.5 x 1.0 x 1.3 cm. No associated color flow. Negative sonographic Keane's sign. COMMON BILE DUCT: Normal in caliber measuring 0.4 cm in diameter. No visible choledocholithiasis. RIGHT KIDNEY: 7.8 cm in length. No hydronephrosis. Small calculus noted on CT not visible on ultrasound. Simple cyst again seen approximately 3.5 cm. No additional imaging follow-up recommended. FREE FLUID: None. US/US abdomen limited IMPRESSION: -Distended gallbladder with 6 mm gallstone. No wall thickening or pericholecystic inflammatory changes. Negative sonographic Keane's sign. Adjacent nonspecific nonmobile smooth polyploid lesion projecting into the lumen 1.5 x 1.0 x 1.3 cm (differential diagnosis: tumefactive sludge, large polyp, adenoma). -Common duct normal. No intrahepatic ductal dilatation. Pancreas unremarkable.
[2022-08-28 07:21] VITALS: BP 146/62; PULSE 53; RESP 18; TEMP 36.2; O2SAT 97; BMI 22.4
--- NOTE | 2022-08-28 08:21 | ED_ITS ---
HPI - Nausea/Vomiting/Diarrhea General Chief complaint: Nausea/Vomiting/Diarrhea Stated complaint: Diarrhea Time Seen by Provider: 08/28/22 08:07 Source: patient Mode of arrival: ambulatory Limitations: no limitations History of Present Illness HPI Narrative: Patient is a 77-year-old female who presents to emergency department with family for evaluation of nausea and diarrhea. Patient reports that since last night 19:00 she began feeling unwell, was having nausea and mid abdominal pain described as cramping localized to the umbilical region. She states that upon awakening today she was not feeling any better and had 2 episodes of pale colored diarrhea. Denies fevers, chills, chest pain, shortness of breath, dizziness, lightheadedness, weakness, bloody or dark stools, dysuria, urinary frequency/urgency/hesitancy. Related Data Home Medications Medication Instructions Recorded Confirmed ergocalciferol (vitamin D2) 1,000 2,000 unit PO DAILY 07/24/22 07/24/22 unit capsule Previous Rx's Medication Instructions Recorded aspirin 81 mg chewable tablet 81 mg PO DAILY 90 days #90 tabs 01/18/21 cyanocobalamin (vitamin B-12) 1,000 mcg PO DAILY 90 days #90 caps 01/20/21 1,000 mcg capsule thiamine HCl (vitamin B1) 100 mg 100 mg PO DAILY 90 days #90 tabs 01/20/21 tablet lisinopril 40 mg tablet 40 mg PO BEDTIME 90 days #90 tabs 04/20/22 lorazepam 1 mg tablet (Ativan) 1 mg PO BEDTIME PRN Anxiety 30 07/20/22 days #30 tabs nifedipine 60 mg tablet,extended 60 mg PO DAILY 90 days #90 tabs 07/20/22 release 24 hr sennosides 8.6 mg tablet (Senna 17.2 mg PO BEDTIME 90 days #180 07/21/22 Laxative) tabs atorvastatin 80 mg tablet 80 mg PO BEDTIME 90 days #90 tabs 07/22/22 hydrochlorothiazide 12.5 mg capsule 12.5 mg PO DAILY 30 days #30 caps 08/17/22 cefuroxime axetil 500 mg tablet 500 mg PO BID #14 tabs 08/28/22 ondansetron HCl 4 mg tablet 4 mg PO Q8H PRN nausea and 08/28/22 vomiting #7 tabs Allergies Allergy/AdvReac Type Severity Reaction Status Date / Time No Known Allergies Allergy Verified 01/05/22 13:04 Review of Systems Review of Systems: Constitutional : No Weight loss, No Fever, No Chills ENT/Mouth :? No sore throat, No Rhinorrhea Eyes: No Swelling, No Redness Cardiovascular : No Chest Pain, No SOB, No Edema Respiratory : No Cough, No Sputum, No Wheezing Gastrointestinal : Positive Nausea, no Vomiting, positive Diarrhea, positive abdominal pain, No Hematochezia, No Melena Genitourinary : No Dysuria, No Urinary Frequency, No Hematuria, No Urgency? Musculoskeletal : No joint pain, No Myalgias, No Joint Swelling Skin : No Skin Lesions, No rash Neuro : No Weakness, No Numbness, No Dizziness, No Headache Psych : No Anxiety/Panic, No Depression Heme/Lymph: No Bruising, No Lymphadenopathy Endocrine : No Polyuria, No Polydipsia Yes all other systems are reviewed and are negative PMFSH Past Medical History Attestation statement: The following information was validated with the patient. Source: old records reviewed Medical History Anxiety Bradycardia, sinus CAD (coronary artery disease) Colonoscopy refused Complete heart block CVA (cerebral vascular accident) Diabetic neuropathy, type II diabetes mellitus Fall HTN (hypertension) Hypertension Mammogram declined Noncompliance Surgical History Aortocoronary bypass status Social History Social History Household Members: Family Household Members Other:: 2 Housing: House Do you presently have visiting nurse or other home services: No Alcohol intake: never Patient Tobacco Use Status: Former Tobacco user Cigarettes Per Day: 1 Years Smoked: 60 Smoked in Last 30 Days: No e-Cigarette/Vaping Use: Never Used Second Hand Smoke Exposure: No Use of substances other than those prescribed or required for medical reasons: No Advance Directives: Yes Advance Directives on File: Yes Advance Directives Date on File: 08/27/20 service: No Current occupational status: retired Cognitive needs: No Hearing needs: No Vision needs: No Physical Exam Vital Signs: Vital Signs: Last Vital Signs Temp 97.6 F 08/28/22 13:54 Pulse 62 08/28/22 13:54 Resp 16 08/28/22 13:54 BP 144/66 H 08/28/22 13:54 Pulse Ox 98 08/28/22 13:54 O2 Del Method 08/28/22 13:54 BMI result Body Mass Index 22.4 Appearance: Alert.?Oriented to person, place and time. No acute distress.?Normal affect. Eyes: Pupils equal, round and reactive to light.? ENT: Pharynx normal.?? Neck: Normal inspection.? Neck supple.?? CVS: Heart sounds normal. Normal heart rate and rhythm.? Pulses normal.?? Respiratory: No respiratory distress.? Lung sounds clear to auscultation bilaterally?? Abdomen: Soft with mild right upper quadrant/left upper quadrant tenderness upon palpation, and tenderness over the umbilical region. No rebound tenderness at McBurney's point. Normoactive bowel sounds. No pulsatile mass.?? Skin: Skin warm and dry.? Normal skin color.? Extremities: No lower extremity edema.? Neuro: Moves all extremities spontaneously. Sensation intact bilaterally. No focal neuro deficits. Ambulates with normal steady gait. Course Reevaluation(s) Reevaluation #1: CBC reveals no leukocytosis, a mild normocytic anemia not meeting transfusion criteria, thrombocytopenia which appears consistent with baseline. CMP notable for BUN 25 creatinine 1.41 which appears consistent with baseline, lipase is low, total bilirubin 1.1, low suspicion for obstructive biliary etiology at this time.. COVID-19 and influenza testing are negative. Urinalysis with microsc opic hematuria, positive nitrates, pyuria, 4+ urine bacteria, there is also presence of squamous epithelial cells. Review of prior urine cultures, positive for E coli, pansensitive. CT reveals dilated gallbladder, 5 cm, without visible wall thickening, sludge, or calculi, to chronic calcifications close to the distal common duct are present similar to prior CT August 2020. Will obtain ultrasound to evaluate for cholecystitis/cholelithiasis. Time: 13:19 Reevaluation #2: Ultrasound revealing a distended gallbladder with 6 mm stone present, no wall thickening or pericholecystic inflammatory changes, CBD is normal. At this time she is tolerating oral intake without difficulty. Discussed with patient plan of care for dietary management, outpatient follow-up with General surgery, worrisome signs and symptoms that would warrant re-evaluation in the emergency department. Prescription for cefuroxime for urinary tract infection sent to patient's pharmacy. Advised outpatient follow-up with primary care provider rosey hidalgo. Patient and her daughter verbalized understanding, discharged at this time in stable condition. Time: 16:11 Medications Administered Discontinued Medications Generic Name Dose Route Start Last Admin Trade Name Bertq PRN Reason Stop Dose Admin Sodium Chloride 1,000 mls @ 999 mls/hr 08/28/22 10:15 08/28/22 12:22 Ns IV 08/28/22 11:15 Infused .Q1H1M BROWN Infusion Ondansetron HCl 4 mg 08/28/22 08:21 08/28/22 08:58 Ondansetron Hcl 4 Mg/2 Ml Vial IVPUSH 08/28/22 08:22 4 mg ONCE ONE Administration Medical Decision Making Medical Decision Making [facility] Narrative: Patient is a 77-year-old female with past medical history of CAD, CABG, anxiety, type 2 diabetes with neuropathy, hypertension, CVA, CKD, tobacco usage of presents to the emergency department for evaluation of abdominal pain with nausea and diarrhea. At the time of examination she is overall well-appearing, has diffuse upper abdominal tenderness upon palpation. Will obtain CBC to evaluate for leukocytosis/ anemia, CMP and lipase to evaluate for abnormal electrolytes /abnormal renal function/ abnormal hepatic/biliary function, CT of the abdomen and pelvis and Urinalysis. Differential Diagnosis Differential Diagnoses: The differential diagnosis associated with the presentation includes Lab Data [facility] Lab Attestation statement: I reviewed the patient's lab results. 08/28/22 08:41 08/28/22 08:41 Labs: Lab Results 08/28/22 08/28/22 08/28/22 Range/Units 08:41 08:41 08:42 WBC 8.9 (4.8-10.8) X10*3/uL RBC 3.77 L (4.20-5.50) X10*6/uL Hgb 11.9 L (12.0-16.0) g/dl Hct 35.4 L (37.0-47.0) % MCV 93.9 (80.0-98.0) fL MCH 31.6 (27.0-33.0) pg MCHC 33.6 (31.0-35.0) g/dl RDW 13.7 (11.0-16.0) % Plt Count 129 L (160-400) X10*3/uL MPV 10.8 (9.4-12.3) fL Absolute Nucleated RBC 0.000 (0.0-0.012) X10*3/uL Nucleated RBC % (auto) 0.0 (0.0-0.2) /100WBC Sodium 137 (135-145) mmol/L Potassium 3.9 (3.3-5.1) mmol/L Chloride 112 H (96-108) mmol/L Carbon Dioxide 18 L (22-29) mmol/L Anion Gap 11 L (12-20) BUN 25 H (9-16) mg/dL Creatinine 1.41 H (0.5-1.4) mg/dL Estim Creat Clear Calc 27.6 Estimated GFR 36 Random Glucose 129 H (60-115) mg/dL Calcium 8.0 L D (8.4-10.2) mg/dL Total Bilirubin 1.1 H (0.0-1.0) mg/dL Direct Bilirubin 0.3 (0.0-0.5) mg/dL AST 23 (5-31) U/L ALT 17 (0-31) U/L Alkaline Phosphatase 92 (39-117) U/L Total Protein 5.2 L (6.5-8.0) g/dL Albumin 3.2 L (3.5-5.0) g/dL Lipase 7 L (8-78) U/L Urine Color Urine Appearance Urine pH (5.0-9.0) Ur Specific Burna (1.005-1.025) Urine Protein (Neg-Trace) mg/dL Urine Glucose (UA) (Negative) mg/dL Urine Ketones (Negative) mg/dL Urine Blood (Negative) Urine Nitrite (Negative) Ur Leukocyte Esterase (Negative) Urine RBC (0-2) /HPF Urine WBC (0-5) /HPF Ur Squamous Epith Cells (0-2) /HPF Urine Bacteria (None Seen) Hyaline Casts (0-2) /LPF COVID-19 (CHELITA) (Negative) COVID-19 Clin Com Influenza Type A (HIEU) Negative (Negative) Influenza Type B (HIEU) Negative (Negative) Influenza A & B Note See Note 08/28/22 08/28/22 Range/Units 08:42 10:34 WBC (4.8-10.8) X10*3/uL RBC (4.20-5.50) X10*6/uL Hgb (12.0-16.0) g/dl Hct (37.0-47.0) % MCV (80.0-98.0) fL MCH (27.0-33.0) pg MCHC (31.0-35.0) g/dl RDW (11.0-16.0) % Plt Count (160-400) X10*3/uL MPV (9.4-12.3) fL Absolute Nucleated RBC (0.0-0.012) X10*3/uL Nucleated RBC % (auto) (0.0-0.2) /100WBC Sodium (135-145) mmol/L Potassium (3.3-5.1) mmol/L Chloride (96-108) mmol/L Carbon Dioxide (22-29) mmol/L Anion Gap (12-20) BUN (9-16) mg/dL Creatinine (0.5-1.4) mg/dL Estim Creat Clear Calc Estimated GFR Random Glucose (60-115) mg/dL Calcium (8.4-10.2) mg/dL Total Bilirubin (0.0-1.0) mg/dL Direct Bilirubin (0.0-0.5) mg/dL AST (5-31) U/L ALT (0-31) U/L Alkaline Phosphatase (39-117) U/L Total Protein (6.5-8.0) g/dL Albumin (3.5-5.0) g/dL Lipase (8-78) U/L Urine Color Yellow Urine Appearance Turbid Urine pH 5.0 (5.0-9.0) Ur Specific Burna 1.020 (1.005-1.025) Urine Protein 300 (3+) H (Neg-Trace) mg/dL Urine Glucose (UA) Negative (Negative) mg/dL Urine Ketones Negative (Negative) mg/dL Urine Blood Moderate (2+) H (Negative) Urine Nitrite Positive H (Negative) Ur Leukocyte Esterase Moderate (2+) H (Negative) Urine RBC 6-10 H (0-2) /HPF Urine WBC >50 H (0-5) /HPF Ur Squamous Epith Cells 6-10 (0-2) /HPF Urine Bacteria 4+ (None Seen) Hyaline Casts 3-5 (0-2) /LPF COVID-19 (CHELITA) Negative (Negative) COVID-19 Clin Com See Note Influenza Type A (HIEU) (Negative) Influenza Type B (HIEU) (Negative) Influenza A & B Note Independent Interpretation I performed an independent interpretation of an: Ultrasound and CT Scan Radiology Impression Discussion of test interpretation with radiology: I have reviewed the radiologist's reading. Radiologist Impression: CT/CT abdomen pelvis wo IV con IMPRESSION: 1. Dilated gallbladder without wall thickening, sludge, or mineralized calculi. No intrahepatic ductal dilatation. Chronic coarse calcifications close to the distal common duct similar to prior CT 08/27/2020, likely in pancreatic head. No pancreatic ductal dilatation or retroperitoneal effusion. ? 2. No hydronephrosis or perinephric stranding. Nonobstructing right renal calculus 3 mm. ? 3. Small bilateral pleural effusions with bibasilar subsegmental atelectasis. ? 4. No bowel obstruction or ascites. Normal appendix. US/US abdomen limited IMPRESSION: -Distended gallbladder with 6 mm gallstone. No wall thickening or pericholecystic inflammatory changes. Negative sonographic Keane's sign. Adjacent nonspecific nonmobile smooth polyploid lesion projecting into the lumen 1.5 x 1.0 x 1.3 cm (differential diagnosis: tumefactive sludge, large polyp, adenoma). ? -Common duct normal. No intrahepatic ductal dilatation. Pancreas unremarkable. ? Independent Historian Clinical information obtained from an independent historian. History obtained from or confirmed by: Other (Daughter who confirms history) Prescription Management I considered prescription management with: Antibiotic Critical Care Time Critical Care Time Critical Care Time: Yes Total Critical Care Time: 35 Attestation: I personally attest to this critical care time spent taking care of the patient exclusive of all other billable procedures was approximately 35 minutes including initial evaluation of patient, ordering tests, x-ray interpretation, EKG interpretation, medical consultation, documentation, re-evaluation. Discharge Plan Discharge Clinical Impression: Cholelithiasis, Urinary tract infection Patient Disposition: Home, Self-Care Instructions: Gallstones (ED), Urinary Tract Infection in Older Adults (ED) Additional Instructions: As discussed, please complete the entire course of antibiotics for urinary tract infection. Follow instructions regarding dietary management of gallstones, avoid foods that are high in fat or grease as these may worsen the symptoms. On Wednesday contact general surgery office to arrange for outpatient follow-up Additionally follow-up with primary care provider next week Return back to emergency department any new or worsening symptoms or concerns. Prescriptions: New cefuroxime axetil 500 mg tablet 500 mg PO BID Qty: 14 0RF ondansetron HCl 4 mg tablet 4 mg PO Q8H PRN (Reason: nausea and vomiting) Qty: 7 0RF No Action aspirin 81 mg tablet,chewable 81 mg PO DAILY 90 Days Qty: 90 1RF thiamine HCl (vitamin B1) 100 mg tablet 100 mg PO DAILY 90 Days Qty: 90 0RF cyanocobalamin (vitamin B-12) 1,000 mcg capsule 1,000 mcg PO DAILY 90 Days Qty: 90 0RF lisinopril 40 mg tablet 40 mg PO BEDTIME 90 Days Qty: 90 1RF lorazepam [Ativan] 1 mg tablet 1 mg PO BEDTIME PRN (Reason: Anxiety) 30 Days Qty: 30 0RF nifedipine 60 mg tablet extended release 24hr 60 mg PO DAILY 90 Days Qty: 90 1RF sennosides [Senna Laxative] 8.6 mg tablet 17.2 mg PO BEDTIME 90 Days Qty: 180 0RF atorvastatin 80 mg tablet 80 mg PO BEDTIME 90 Days Qty: 90 2RF hydrochlorothiazide 12.5 mg capsule 12.5 mg PO DAILY 30 Days Qty: 30 0RF Vitamin D2 1,000 unit Capsule 2,000 unit PO DAILY Referrals: Jerry Hart FNP- [Primary Care Provider] - Azar Pastor MD [Physician] - Interventions: ED Discharge Assessment Last Done: 08/28/22 17:28 Discharge Date/Time: 08/28/22 17:30
[2022-08-28] MEDS: ondansetron HCL 4 MG/2 ML VIAL IVPUSH (08:58)
[2022-08-28 09:01] LABS: Hematocrit 35.4 % (37.0-47.0); Hemoglobin 11.9 g/dl (12.0-16.0); Mean Corpuscular HGB Conc 33.6 g/dl (31.0-35.0); Mean Corpuscular Hemoglobin 31.6 pg (27.0-33.0); Mean Corpuscular Volume 93.9 fL (80.0-98.0); Mean Platelet Volume 10.8 fL (9.4-12.3); Platelet Count 129 X10*3/uL (160-400); Red Blood Count 3.77 X10*6/uL (4.20-5.50); Red Cell Distribution Width 13.7 % (11.0-16.0); White Blood Count 8.9 X10*3/uL (4.8-10.8)
[2022-08-28 09:13] LABS: Alanine Aminotransferase 17 U/L (0-31); Albumin Level 3.2 g/dL (3.5-5.0); Alkaline Phosphatase 92 U/L (39-117); Anion Gap 11 (12-20); Aspartate Amino Transferase 23 U/L (5-31); Bilirubin Direct 0.3 mg/dL (0.0-0.5); Bilirubin Total 1.1 mg/dL (0.0-1.0); Blood Urea Nitrogen 25 mg/dL (9-16); Carbon Dioxide 18 mmol/L (22-29); Chloride 112 mmol/L (96-108); Creatinine Clr Calc Pharmacy 27.6; Estimated Glomerular Filt Rate 36; Glucose Random 129 mg/dL (60-115); Lipase 7 U/L (8-78); Potassium 3.9 mmol/L (3.3-5.1); Sodium 137 mmol/L (135-145); Total Protein 5.2 g/dL (6.5-8.0)
[2022-08-28 09:17] LABS: IDNOW Serial# 9DB6401D; Influenza A Negative (Negative); Influenza B2 Negative (Negative)
[2022-08-28 09:27] LABS: COVID-19 Test Negative (Negative); IDNOW Serial# 6674DD1D
[2022-08-28] MEDS: 0.9 % Sodium Chloride 1,000 ML 999 ML IV (10:38)
[2022-08-28 10:48] LABS: Appearance Urine Turbid; Color Urine Yellow; Glucose Urine UA Negative (Negative); Leukocyte Esterase Urine Moderate (2+) (Negative); Nitrite Urine Positive (Negative); UMIC TRIGGER UACC YES; Urine Blood Moderate (2+) (Negative); Urine Ketones Negative (Negative); Urine Protein 300 (3+) mg/dL (Neg-Trace)
[2022-08-28 10:58] LABS: Bacteria Urine 4+ (None Seen); UACC Culture Trigger YES; WBC Urine >50 /HPF (0-5)
[2022-08-28 13:54] VITALS: BP 144/66; PULSE 62; RESP 16; TEMP 36.4; O2SAT 98
== END 2022-08-28 17:30 | disposition home or self-care (01) ==
PROVIDERS: Nurse Practitioner Family; Emergency Provider Emergency Medicine; PCP Nurse Practitioner Family
DX: K80.20 Calculus of gallbladder without cholecystitis without obstruction (principal); N39.0 Urinary tract infection, site not specified; R11.2 Nausea with vomiting, unspecified; Z20.822 Contact with and (suspected) exposure to COVID-19; Z20.828 Contact with and (suspected) exposure to other viral communicable diseases; Z79.899 Other long term (current) drug therapy
CPT/HCPCS: 36415; 74176; 76705; 80048; 80076; 81001; 83690; 85027; 87086; 87088; 87186; 87502; 87635; 96361; 96374; 99284; J2405

== ENCOUNTER 2022-09-08 13:33 | Outpatient (REF) | payer MEDICARE, SELFPAY ==
[2022-09-08 14:40] LABS: MANUAL DIFF FLAG NO
[2022-09-08 14:42] LABS: Basophils Absolute Auto 0.1 X10*3/uL (0.0-0.2); Basophils Percent Auto 0.7 % (0-2); Eosinophils Absolute Auto 0.4 X10*3/uL (0.0-0.4); Eosinophils Percent Auto 4.8 % (0-4); Hematocrit 39.6 % (37.0-47.0); Hemoglobin 13.6 g/dl (12.0-16.0); Imm Gran Abs Auto 0.03 X10*3/uL (0.00-0.03); Imm Gran Pct Auto 0.4 % (0.0-0.4); Lymphocytes Absolute Auto 1.6 X10*3/uL (1.2-4.9); Lymphocytes Percent Auto 19.6 % (20-40); Mean Corpuscular HGB Conc 34.3 g/dl (31.0-35.0); Mean Corpuscular Hemoglobin 31.3 pg (27.0-33.0); Mean Platelet Volume 10.2 fL (9.4-12.3); Monocytes Absolute Auto 0.3 X10*3/uL (0.1-1.2); Monocytes Percent Auto 4.1 % (2-11); Neutrophils Absolute Auto 5.7 x10*3/uL (2.0-8.3); Neutrophils Percent Auto 70.4 % (45-73); Platelet Count 160 X10*3/uL (160-400); Red Blood Count 4.35 X10*6/uL (4.20-5.50); Red Cell Distribution Width 13.3 % (11.0-16.0); White Blood Count 8.1 X10*3/uL (4.8-10.8)
[2022-09-08 15:21] LABS: Estimated Average Glucose 97 mg/dL
[2022-09-08 15:36] LABS: Alanine Aminotransferase 17 U/L (0-31); Albumin Level 3.5 g/dL (3.5-5.0); Alkaline Phosphatase 94 U/L (39-117); Anion Gap 13 (12-20); Aspartate Amino Transferase 26 U/L (5-31); Bilirubin Total 0.9 mg/dL (0.0-1.0); Blood Urea Nitrogen 18 mg/dL (9-16); Calcium 8.7 mg/dL (8.4-10.2); Carbon Dioxide 22 mmol/L (22-29); Chloride 113 mmol/L (96-108); Estimated Glomerular Filt Rate 43; Glucose Random 97 mg/dL (60-115); Potassium 3.8 mmol/L (3.3-5.1); Sodium 144 mmol/L (135-145); Total Protein 5.9 g/dL (6.5-8.0)
== END 2022-09-08 13:34 | disposition home or self-care (01) ==
LOC: HO.LAB 13:33
PROVIDERS: PCP Nurse Practitioner Family; Visit Provider Surgery
DX: K80.20 Calculus of gallbladder without cholecystitis without obstruction (principal); E11.40 Type 2 diabetes mellitus with diabetic neuropathy, unspecified; I10 Essential (primary) hypertension; I25.10 Atherosclerotic heart disease of native coronary artery without angina pectoris; I44.2 Atrioventricular block, complete; I63.9 Cerebral infarction, unspecified
CPT/HCPCS: 36415; 80053; 83036; 84134; 85025; 99202

== ENCOUNTER → 2022-09-22 09:34 | Outpatient (BNVA) | payer MEDICARE, SELFPAY | PROVIDERS: PCP Nurse Practitioner Family; Visit Provider Surgery | DX: K80.20 Calculus of gallbladder without cholecystitis without obstruction (principal); E11.40 Type 2 diabetes mellitus with diabetic neuropathy, unspecified; I10 Essential (primary) hypertension; I44.2 Atrioventricular block, complete; I63.9 Cerebral infarction, unspecified; R19.7 Diarrhea, unspecified | CPT/HCPCS: 99212 ==

== ENCOUNTER 2022-10-13 11:46 | Emergency (ER) | payer MEDICARE, SELFPAY ==
--- NOTE | ~2022-10-13 | XR_ITS ---
EXAMINATION: XR KNEE, LEFT CLINICAL INFORMATION: Left knee abrasion COMPARISON: None available. TECHNIQUE: Four views of the left knee. FINDINGS: There is no fracture or definite soft tissue abnormality. Minimal marginal osteophytes about the medial compartment indicative of minimal arthrosis. No joint space narrowing. No effusion. Arterial calcification noted. XR/XR knee LT 4V IMPRESSION: 1. No acute abnormality. 2. Calcific atherosclerotic disease.
[2022-10-13 11:57] VITALS: BP 155/83; BP 159/76; PULSE 63; PULSE 68; RESP 17; TEMP 36.3; O2SAT 100; O2SAT 99; BMI 23.0
--- NOTE | 2022-10-13 12:05 | ECG_ITS ---
Test Reason : FALL Blood Pressure : / mmHG Vent. Rate : 061 BPM Atrial Rate : 061 BPM P-R Int : 206 ms QRS Dur : 108 ms QT Int : 420 ms P-R-T Axes : -28 -55 110 degrees QTc Int : 422 ms AV dual-paced rhythm Abnormal ECG When compared with ECG of 24-JUL-2022 09:31, AV dual-paced rhythm has replaced Sinus rhythm with complete heart block Referred By: Generic ED Physician Electronically Signed By:FABIEN BLOOM MD
[2022-10-13 12:24] LABS: Glucose, Whole Blood 130 mg/dL (60-115)
[2022-10-13 13:11] LABS: MANUAL DIFF FLAG NO
[2022-10-13 13:14] LABS: Basophils Percent Auto 0.6 % (0-2); Eosinophils Absolute Auto 0.3 X10*3/uL (0.0-0.4); Eosinophils Percent Auto 3.9 % (0-4); Hematocrit 41.5 % (37.0-47.0); Hemoglobin 14.3 g/dl (12.0-16.0); Imm Gran Abs Auto 0.03 X10*3/uL (0.00-0.03); Imm Gran Pct Auto 0.4 % (0.0-0.4); Lymphocytes Percent Auto 13.4 % (20-40); Mean Corpuscular HGB Conc 34.5 g/dl (31.0-35.0); Mean Platelet Volume 10.1 fL (9.4-12.3); Monocytes Absolute Auto 0.2 X10*3/uL (0.1-1.2); Monocytes Percent Auto 3.4 % (2-11); Neutrophils Absolute Auto 5.6 x10*3/uL (2.0-8.3); Neutrophils Percent Auto 78.3 % (45-73); Platelet Count 144 X10*3/uL (160-400); Red Blood Count 4.61 X10*6/uL (4.20-5.50); Red Cell Distribution Width 12.4 % (11.0-16.0); White Blood Count 7.1 X10*3/uL (4.8-10.8)
--- NOTE | 2022-10-13 13:16 | ED.GENADULT ---
HPI - General Adult General Chief complaint: General Medical Stated complaint: pain left knee Time Seen by Provider: 10/13/22 13:05 Source: patient and EMS Mode of arrival: EMS Limitations: no limitations History of Present Illness HPI narrative: Patient comes to the emergency room via EMS. According to EMS, patient was found walking around her neighborhood barefooted, seems that she fell/tripped. Patient states that it was a mechanical fall. Did not hit her head or lose consciousness. Patient is up blood thinners according to her. EMS reports that before they got there, police department helps out the patient 1st, initially they were going to take the patient home, when they got there, the door was locked. Patient lives with her daughter who is currently at work. Therefore, EMS was called and was brought to the emergency room. Other than an abrasion on the left knee,. Patient has no complaints. Patient states that she feels well otherwise. Related Data Home Medications Medication Instructions Recorded Confirmed ergocalciferol (vitamin D2) 1,000 2,000 unit PO DAILY 07/24/22 09/22/22 unit capsule Previous Rx's Medication Instructions Recorded cyanocobalamin (vitamin B-12) 1,000 mcg PO DAILY 90 days #90 caps 01/20/21 1,000 mcg capsule thiamine HCl (vitamin B1) 100 mg 100 mg PO DAILY 90 days #90 tabs 01/20/21 tablet lisinopril 40 mg tablet 40 mg PO BEDTIME 90 days #90 tabs 04/20/22 nifedipine 60 mg tablet,extended 60 mg PO DAILY 90 days #90 tabs 07/20/22 release 24 hr atorvastatin 80 mg tablet 80 mg PO BEDTIME 90 days #90 tabs 07/22/22 ondansetron HCl 4 mg tablet 4 mg PO Q8H PRN nausea and 08/28/22 vomiting #7 tabs carvedilol 6.25 mg tablet 6.25 mg PO BID #60 tabs 08/31/22 sennosides 8.6 mg tablet (Senna 17.2 mg PO BEDTIME 90 days #180 08/31/22 Laxative) tabs trazodone 50 mg tablet 25 mg PO BEDTIME PRN insomnia #30 08/31/22 tabs lorazepam 1 mg tablet (Ativan) 1 mg PO BEDTIME PRN Anxiety 30 09/21/22 days #30 tabs cefuroxime axetil 500 mg tablet 500 mg PO BID #14 tabs 10/13/22 Allergies Allergy/AdvReac Type Severity Reaction Status Date / Time No Known Allergies Allergy Verified 09/22/22 09:43 Review of Systems Review of Systems: Constitutional : No Weight loss, No Fever, No Chills, No Night Sweats, No Fatigue, No Malaise ENT/Mouth : No Hearing loss, No Ear Pain, No Nasal Congestion, No Sinus Pain, No Hoarseness, No sore throat, No Rhinorrhea, No Swallowing Difficulty Eyes: No Eye Pain, No Swelling, No Redness, No Foreign Body, No Discharge, No Vision Changes Cardiovascular : No Chest Pain, No SOB, No Dyspnea on Exertion, No Orthopnea, No Edema, No Palpitations Respiratory : No Cough, No Sputum, No Wheezing, No Smoke Exposure, No Dyspnea Gastrointestinal : No Nausea, No Vomiting, No Diarrhea, No Constipation, No abdominal Pain, No Hematochezia, No Melena Genitourinary : no irregular bleeding, No Dysuria, No Urinary Frequency, No Hematuria, No Urinary Incontinence, No Urgency, No Flank Pain, No Urinary Flow Changes, No Hesitancy Musculoskeletal : No joint pain, No Myalgias, No Joint Swelling Skin : Abrasion in the left knee Neuro : No Weakness, No Numbness, No Paresthesias, No Loss of Consciousness, No Dizziness, No Headache Psych : No Anxiety/Panic, No Depression, No SI/HI/AH/VH, No Social Issues, Heme/Lymph: No Bruising, No Bleeding,No Lymphadenopathy Endocrine : No Polyuria, No Polydipsia, No Temperature Intolerance [facility] Past Medical History Medical History Anxiety Bradycardia, sinus CAD (coronary artery disease) Colonoscopy refused Complete heart block CVA (cerebral vascular accident) Diabetic neuropathy, type II diabetes mellitus Fall HTN (hypertension) Hypertension Mammogram declined Noncompliance Surgical History Aortocoronary bypass status Social History Social History Household Members: Family Household Members Other:: 2 Housing: House Do you presently have visiting nurse or other home services: No Alcohol intake: never Patient Tobacco Use Status: Former Tobacco user Cigarettes Per Day: 1 Years Smoked: 60 Smoked in Last 30 Days: No e-Cigarette/Vaping Use: Never Used Second Hand Smoke Exposure: No Use of substances other than those prescribed or required for medical reasons: No Advance Directives: Yes Advance Directives on File: Yes Advance Directives Date on File: 08/27/20 service: No Current occupational status: retired Cognitive needs: No Hearing needs: No Vision needs: No Physical Exam ED Vital Signs: Vital Signs - 24 hr 10/13/22 11:57 10/13/22 13:44 Temperature 97.3 F 98.2 F Pulse Rate 63 65 Respiratory Rate 17 10 L Blood Pressure 159/76 H 152/71 H Pulse Oximetry 99 98 Oxygen Delivery Method Room Air Room Air BMI result Body Mass Index 23.0 Const Other: Appearance: Alert. Oriented X3. No acute distress. Well appearing Eyes: Pupils equal, round and reactive to light. ENT: Pharynx normal. Neck: Normal inspection. Neck supple. No lymph nodes noted. No crepitus CVS: Normal heart rate and rhythm. Pulses normal. Normal S1 and S2 Respiratory: No respiratory distress. Breath sounds normal. No Wheezing. No rales Abdomen: Soft and nontender. No rigidity. No distention. Skin: Skin warm and dry. Small abrasion on the left knee Extremities: No lower extremity edema. No Lacerations. No Rash, patient is able to flex and extend both knees, no obvious effusions. Neuro: Oriented X 3. No motor deficit. No sensory deficit. Moving all extremities. No slurred speech. CN 2 through 12 grossly intact Psych: calm, cooperative, normal affect Course Course Course Narrative: -we will get baseline labs, EKG. Patient has no external signs of other injuries, no other imaging indicated. Patient is able to flex and extend her knee. States has no pain. Medications Administered Discontinued Medications Generic Name Dose Route Start Last Admin Trade Name Freq PRN Reason Stop Dose Admin Cefuroxime Axetil 500 mg 10/13/22 17:20 10/13/22 17:40 Cefuroxime Axetil 500 Mg Tablet PO 10/13/22 17:21 500 mg ONCE ONE Administration Sodium Chloride 1,000 mls @ 999 mls/hr 10/13/22 14:24 10/13/22 15:32 Ns IVCONT 10/13/22 15:24 Not Given .Q1H1M ONE Medical Decision Making Medical Decision Making MDM Narrative: -patient has acute kidney injury, patient refuses IV. Patient is willing to drink water. -urinalysis pending. -patient has a UTI. Patient is adamant that she does not want IV or IM medications. Patient will take p.o., 1st dose of cefuroxime given in the emergency room -also, patient has acute kidney injury. Pain as mentioned above, patient refused IV fluids. However, she is willing to keep drinking water. Patient unwilling to have his repeat labs after drinking water. -patient is asymptomatic at this time, is alert and oriented x4, no acute distress. Patient's nurse was able to get in touch with the patient's daughter, who will be picking her up. Patient does not want to stay in the hospital. Differential Diagnosis Differential Diagnoses: The differential diagnosis associated with the presentation includes (UTI, early stages of dementia, confusion) Lab Data [facility] Lab Attestation statement: I reviewed the patient's lab results. 10/13/22 13:02 10/13/22 13:02 Labs: Lab Results 10/13/22 10/13/22 10/13/22 Range/Units 12:10 13:02 13:02 WBC 7.1 (4.8-10.8) X10*3/uL RBC 4.61 (4.20-5.50) X10*6/uL Hgb 14.3 (12.0-16.0) g/dl Hct 41.5 (37.0-47.0) % MCV 90.0 (80.0-98.0) fL MCH 31.0 (27.0-33.0) pg MCHC 34.5 (31.0-35.0) g/dl RDW 12.4 (11.0-16.0) % Plt Count 144 L (160-400) X10*3/uL MPV 10.1 (9.4-12.3) fL Immature Gran % (Auto) 0.4 (0.0-0.4) % Neut % (Auto) 78.3 H (45-73) % Lymph % (Auto) 13.4 L (20-40) % [place] % (Auto) 3.4 (2-11) % Eos % (Auto) 3.9 (0-4) % Baso % (Auto) 0.6 (0-2) % Lymph # (Auto) 1.0 L (1.2-4.9) X10*3/uL [place] # (Auto) 0.2 (0.1-1.2) X10*3/uL Eos # (Auto) 0.3 (0.0-0.4) X10*3/uL Baso # (Auto) 0.0 (0.0-0.2) X10*3/uL Abs Immat Gran (auto) 0.03 (0.00-0.03) X10*3/uL Absolute Neuts (auto) 5.6 (2.0-8.3) x10*3/uL Absolute Nucleated RBC 0.000 (0.0-0.012) X10*3/uL Nucleated RBC % (auto) 0.0 (0.0-0.2) /100WBC PT (10.0-13.1) SEC INR (0.9-1.1) Sodium 141 (135-145) mmol/L Potassium 4.0 (3.3-5.1) mmol/L Chloride 108 (96-108) mmol/L Carbon Dioxide 23 (22-29) mmol/L Anion Gap 14 (12-20) BUN 29 H (9-16) mg/dL Creatinine 1.52 H (0.5-1.4) mg/dL Estim Creat Clear Calc 25.6 Estimated GFR 33 POC Glucose 130 H (60-115) mg/dL Random Glucose 137 H (60-115) mg/dL Calcium 8.8 (8.4-10.2) mg/dL Total Bilirubin (0.0-1.0) mg/dL Direct Bilirubin (0.0-0.5) mg/dL AST (5-31) U/L ALT (0-31) U/L Alkaline Phosphatase (39-117) U/L Troponin I High Sens (<3.5-17.0) ng/L Total Protein (6.5-8.0) g/dL Albumin (3.5-5.0) g/dL Urine Color Urine Appearance Urine pH (5.0-9.0) Ur Specific Orient (1.005-1.025) Urine Protein (Neg-Trace) mg/dL Urine Glucose (UA) (Negative) mg/dL Urine Ketones (Negative) mg/dL Urine Blood (Negative) Urine Nitrite (Negative) Ur Leukocyte Esterase (Negative) Urine RBC (0-2) /HPF Urine WBC (0-5) /HPF Ur Squamous Epith Cells (0-2) /HPF Urine Bacteria (None Seen) Hyaline Casts (0-2) /LPF Urine Opiates Screen (Not Detect) Urine Fentanyl Screen (Not Detect) Ur Barbiturates Screen (Not Detect) Ur Phencyclidine Scrn (Not Detect) Ur Amphetamines Screen (Not Detect) U Benzodiazepines Scrn (Not Detect) Urine Cocaine Screen (Not Detect) U Marijuana (THC) Screen (Not Detect) Ethyl Alcohol mg/dL Influenza Type A (PCR) (Negative) Influenza Type B (PCR) (Negative) RSV RNA Qual (PCR) (Negative) SARS-CoV-2 RNA (RT-PCR) (Negative) 10/13/22 10/13/22 10/13/22 Range/Units 13:02 13:02 13:42 WBC (4.8-10.8) X10*3/uL RBC (4.20-5.50) X10*6/uL Hgb (12.0-16.0) g/dl Hct (37.0-47.0) % MCV (80.0-98.0) fL MCH (27.0-33.0) pg MCHC (31.0-35.0) g/dl RDW (11.0-16.0) % Plt Count (160-400) X10*3/uL MPV (9.4-12.3) fL Immature Gran % (Auto) (0.0-0.4) % Neut % (Auto) (45-73) % Lymph % (Auto) (20-40) % [place] % (Auto) (2-11) % Eos % (Auto) (0-4) % Baso % (Auto) (0-2) % Lymph # (Auto) (1.2-4.9) X10*3/uL [place] # (Auto) (0.1-1.2) X10*3/uL Eos # (Auto) (0.0-0.4) X10*3/uL Baso # (Auto) (0.0-0.2) X10*3/uL Abs Immat Gran (auto) (0.00-0.03) X10*3/uL Absolute Neuts (auto) (2.0-8.3) x10*3/uL Absolute Nucleated RBC (0.0-0.012) X10*3/uL Nucleated RBC % (auto) (0.0-0.2) /100WBC PT 11.3 (10.0-13.1) SEC INR 1.0 (0.9-1.1) Sodium (135-145) mmol/L Potassium (3.3-5.1) mmol/L Chloride (96-108) mmol/L Carbon Dioxide (22-29) mmol/L Anion Gap (12-20) BUN (9-16) mg/dL Creatinine (0.5-1.4) mg/dL Estim Creat Clear Calc Estimated GFR POC Glucose (60-115) mg/dL Random Glucose (60-115) mg/dL Calcium (8.4-10.2) mg/dL Total Bilirubin (0.0-1.0) mg/dL Direct Bilirubin (0.0-0.5) mg/dL AST (5-31) U/L ALT (0-31) U/L Alkaline Phosphatase (39-117) U/L Troponin I High Sens 12.0 D (<3.5-17.0) ng/L Total Protein (6.5-8.0) g/dL Albumin (3.5-5.0) g/dL Urine Color Urine Appearance Urine pH (5.0-9.0) Ur Specific Orient (1.005-1.025) Urine Protein (Neg-Trace) mg/dL Urine Glucose (UA) (Negative) mg/dL Urine Ketones (Negative) mg/dL Urine Blood (Negative) Urine Nitrite (Negative) Ur Leukocyte Esterase (Negative) Urine RBC (0-2) /HPF Urine WBC (0-5) /HPF Ur Squamous Epith Cells (0-2) /HPF Urine Bacteria (None Seen) Hyaline Casts (0-2) /LPF Urine Opiates Screen (Not Detect) Urine Fentanyl Screen (Not Detect) Ur Barbiturates Screen (Not Detect) Ur Phencyclidine Scrn (Not Detect) Ur Amphetamines Screen (Not Detect) U Benzodiazepines Scrn (Not Detect) Urine Cocaine Screen (Not Detect) U Marijuana (THC) Screen (Not Detect) Ethyl Alcohol mg/dL Influenza Type A (PCR) NEGATIVE (Negative) Influenza Type B (PCR) NEGATIVE (Negative) RSV RNA Qual (PCR) NEGATIVE (Negative) SARS-CoV-2 RNA (RT-PCR) NEGATIVE (Negative) 10/13/22 10/13/22 10/13/22 Range/Units 13:42 13:42 15:36 WBC (4.8-10.8) X10*3/uL RBC (4.20-5.50) X10*6/uL Hgb (12.0-16.0) g/dl Hct (37.0-47.0) % MCV (80.0-98.0) fL MCH (27.0-33.0) pg MCHC (31.0-35.0) g/dl RDW (11.0-16.0) % Plt Count (160-400) X10*3/uL MPV (9.4-12.3) fL Immature Gran % (Auto) (0.0-0.4) % Neut % (Auto) (45-73) % Lymph % (Auto) (20-40) % [place] % (Auto) (2-11) % Eos % (Auto) (0-4) % Baso % (Auto) (0-2) % Lymph # (Auto) (1.2-4.9) X10*3/uL [place] # (Auto) (0.1-1.2) X10*3/uL Eos # (Auto) (0.0-0.4) X10*3/uL Baso # (Auto) (0.0-0.2) X10*3/uL Abs Immat Gran (auto) (0.00-0.03) X10*3/uL Absolute Neuts (auto) (2.0-8.3) x10*3/uL Absolute Nucleated RBC (0.0-0.012) X10*3/uL Nucleated RBC % (auto) (0.0-0.2) /100WBC PT (10.0-13.1) SEC INR (0.9-1.1) Sodium (135-145) mmol/L Potassium (3.3-5.1) mmol/L Chloride (96-108) mmol/L Carbon Dioxide (22-29) mmol/L Anion Gap (12-20) BUN (9-16) mg/dL Creatinine (0.5-1.4) mg/dL Estim Creat Clear Calc Estimated GFR POC Glucose (60-115) mg/dL Random Glucose (60-115) mg/dL Calcium (8.4-10.2) mg/dL Total Bilirubin 0.7 (0.0-1.0) mg/dL Direct Bilirubin 0.3 (0.0-0.5) mg/dL AST 33 H (5-31) U/L ALT 33 H (0-31) U/L Alkaline Phosphatase 98 (39-117) U/L Troponin I High Sens (<3.5-17.0) ng/L Total Protein 6.1 L (6.5-8.0) g/dL Albumin 3.7 (3.5-5.0) g/dL Urine Color Yellow Urine Appearance Cloudy Urine pH 7.0 (5.0-9.0) Ur Specific Orient 1.015 (1.005-1.025) Urine Protein 100 (2+) H (Neg-Trace) mg/dL Urine Glucose (UA) Negative (Negative) mg/dL Urine Ketones Negative (Negative) mg/dL Urine Blood Trace H (Negative) Urine Nitrite Positive H (Negative) Ur Leukocyte Esterase Large (3+) H (Negative) Urine RBC 0-2 (0-2) /HPF Urine WBC >50 H (0-5) /HPF Ur Squamous Epith Cells 6-10 (0-2) /HPF Urine Bacteria 4+ (None Seen) Hyaline Casts 0-2 (0-2) /LPF Urine Opiates Screen (Not Detect) Urine Fentanyl Screen (Not Detect) Ur Barbiturates Screen (Not Detect) Ur Phencyclidine Scrn (Not Detect) Ur Amphetamines Screen (Not Detect) U Benzodiazepines Scrn (Not Detect) Urine Cocaine Screen (Not Detect) U Marijuana (THC) Screen (Not Detect) Ethyl Alcohol < 10 mg/dL Influenza Type A (PCR) (Negative) Influenza Type B (PCR) (Negative) RSV RNA Qual (PCR) (Negative) SARS-CoV-2 RNA (RT-PCR) (Negative) 10/13/22 Range/Units 15:36 WBC (4.8-10.8) X10*3/uL RBC (4.20-5.50) X10*6/uL Hgb (12.0-16.0) g/dl Hct (37.0-47.0) % MCV (80.0-98.0) fL MCH (27.0-33.0) pg MCHC (31.0-35.0) g/dl RDW (11.0-16.0) % Plt Count (160-400) X10*3/uL MPV (9.4-12.3) fL Immature Gran % (Auto) (0.0-0.4) % Neut % (Auto) (45-73) % Lymph % (Auto) (20-40) % [place] % (Auto) (2-11) % Eos % (Auto) (0-4) % Baso % (Auto) (0-2) % Lymph # (Auto) (1.2-4.9) X10*3/uL [place] # (Auto) (0.1-1.2) X10*3/uL Eos # (Auto) (0.0-0.4) X10*3/uL Baso # (Auto) (0.0-0.2) X10*3/uL Abs Immat Gran (auto) (0.00-0.03) X10*3/uL Absolute Neuts (auto) (2.0-8.3) x10*3/uL Absolute Nucleated RBC (0.0-0.012) X10*3/uL Nucleated RBC % (auto) (0.0-0.2) /100WBC PT (10.0-13.1) SEC INR (0.9-1.1) Sodium (135-145) mmol/L Potassium (3.3-5.1) mmol/L Chloride (96-108) mmol/L Carbon Dioxide (22-29) mmol/L Anion Gap (12-20) BUN (9-16) mg/dL Creatinine (0.5-1.4) mg/dL Estim Creat Clear Calc Estimated GFR POC Glucose (60-115) mg/dL Random Glucose (60-115) mg/dL Calcium (8.4-10.2) mg/dL Total Bilirubin (0.0-1.0) mg/dL Direct Bilirubin (0.0-0.5) mg/dL AST (5-31) U/L ALT (0-31) U/L Alkaline Phosphatase (39-117) U/L Troponin I High Sens (<3.5-17.0) ng/L Total Protein (6.5-8.0) g/dL Albumin (3.5-5.0) g/dL Urine Color Urine Appearance Urine pH (5.0-9.0) Ur Specific Orient (1.005-1.025) Urine Protein (Neg-Trace) mg/dL Urine Glucose (UA) (Negative) mg/dL Urine Ketones (Negative) mg/dL Urine Blood (Negative) Urine Nitrite (Negative) Ur Leukocyte Esterase (Negative) Urine RBC (0-2) /HPF Urine WBC (0-5) /HPF Ur Squamous Epith Cells (0-2) /HPF Urine Bacteria (None Seen) Hyaline Casts (0-2) /LPF Urine Opiates Screen Not Detected (Not Detect) Urine Fentanyl Screen Not Detected (Not Detect) Ur Barbiturates Screen Not Detected (Not Detect) Ur Phencyclidine Scrn Not Detected (Not Detect) Ur Amphetamines Screen Not Detected (Not Detect) U Benzodiazepines Scrn Not Detected (Not Detect) Urine Cocaine Screen Not Detected (Not Detect) U Marijuana (THC) Screen Not Detected (Not Detect) Ethyl Alcohol mg/dL Influenza Type A (PCR) (Negative) Influenza Type B (PCR) (Negative) RSV RNA Qual (PCR) (Negative) SARS-CoV-2 RNA (RT-PCR) (Negative) Discharge Plan Discharge Clinical Impression: Acute UTI Patient Disposition: Home, Self-Care Instructions: Urinary Tract Infection in Older Adults (ED) Additional Instructions: Please follow-up with your primary care physician tomorrow. If you have any worsening or new symptoms, please return to the emergency room or call 911 Prescriptions: New cefuroxime axetil 500 mg tablet 500 mg PO BID Qty: 14 0RF No Action thiamine HCl (vitamin B1) 100 mg tablet 100 mg PO DAILY 90 Days Qty: 90 0RF cyanocobalamin (vitamin B-12) 1,000 mcg capsule 1,000 mcg PO DAILY 90 Days Qty: 90 0RF lisinopril 40 mg tablet 40 mg PO BEDTIME 90 Days Qty: 90 1RF nifedipine 60 mg tablet extended release 24hr 60 mg PO DAILY 90 Days Qty: 90 1RF atorvastatin 80 mg tablet 80 mg PO BEDTIME 90 Days Qty: 90 2RF sennosides [Senna Laxative] 8.6 mg tablet 17.2 mg PO BEDTIME 90 Days Qty: 180 0RF lorazepam [Ativan] 1 mg tablet 1 mg PO BEDTIME PRN (Reason: Anxiety) 30 Days Qty: 30 0RF Vitamin D2 1,000 unit Capsule 2,000 unit PO DAILY ondansetron HCl 4 mg tablet 4 mg PO Q8H PRN (Reason: nausea and vomiting) Qty: 7 0RF carvedilol 6.25 mg tablet 6.25 mg PO BID Qty: 60 3RF trazodone 50 mg tablet 25 mg PO BEDTIME PRN (Reason: insomnia) Qty: 30 2RF
--- NOTE | 2022-10-13 13:30 | MHC.EDTECH ---
2nd EKG was documented with the same time as the first EKG. Spoke with Dr. Alex stated a 2nd EKG was not needed. All set.
[2022-10-13 13:33] LABS: Anion Gap 14 (12-20); Blood Urea Nitrogen 29 mg/dL (9-16); Calcium 8.8 mg/dL (8.4-10.2); Carbon Dioxide 23 mmol/L (22-29); Chloride 108 mmol/L (96-108); Creatinine Clr Calc Pharmacy 25.6; Estimated Glomerular Filt Rate 33; Glucose Random 137 mg/dL (60-115); Sodium 141 mmol/L (135-145)
[2022-10-13 13:44] VITALS: BP 152/71; PULSE 65; RESP 10; TEMP 36.8; O2SAT 98
[2022-10-13 13:54] LABS: Influenza A PCR NEGATIVE (Negative); Influenza B PCR NEGATIVE (Negative); Resp Syncy Virus RNA Qual PCR NEGATIVE (Negative); SARS COV2 PCR INHOUSE NEGATIVE (Negative)
[2022-10-13 13:57] LABS: Prothrombin Time 11.3 SEC (10.0-13.1)
[2022-10-13 14:05] LABS: Alanine Aminotransferase 33 U/L (0-31); Albumin Level 3.7 g/dL (3.5-5.0); Alkaline Phosphatase 98 U/L (39-117); Aspartate Amino Transferase 33 U/L (5-31); Bilirubin Direct 0.3 mg/dL (0.0-0.5); Bilirubin Total 0.7 mg/dL (0.0-1.0); Total Protein 6.1 g/dL (6.5-8.0)
[2022-10-13 14:23] LABS: Ethanol < 10 mg/dL
[2022-10-13 15:45] LABS: Appearance Urine Cloudy; Color Urine Yellow; Glucose Urine UA Negative (Negative); Leukocyte Esterase Urine Large (3+) (Negative); Nitrite Urine Positive (Negative); Specific Gravity - Urine 1.015 (1.005-1.025); UMIC TRIGGER UACC YES; Urine Blood Trace (Negative); Urine Ketones Negative (Negative); Urine Protein 100 (2+) mg/dL (Neg-Trace)
[2022-10-13 15:58] LABS: Bacteria Urine 4+ (None Seen); Hyaline Casts Urine 0-2 /LPF (0-2); RBC Urine 0-2 /HPF (0-2); UACC Culture Trigger YES; WBC Urine >50 /HPF (0-5)
[2022-10-13 15:59] LABS: Amphetamine Screen Urine Not Detected (Not Detect); Barbiturates, Urine Not Detected (Not Detect); Benzodiazepines Screen Urine Not Detected (Not Detect); Cannabinoid Screen Urine Not Detected (Not Detect); Cocaine Screen Urine Not Detected (Not Detect); Fentanyl, urine Not Detected (Not Detect); Opiate Screen Urine Not Detected (Not Detect); Phencyclidine Screen Urine Not Detected (Not Detect)
--- NOTE | 2022-10-13 19:59 | PC.NURSE ---
late entry: pt refused IV and IV fluids, MD Alex aware, request to have pt drink oral fluids for the time being this RN ambulated pt to the bathroom with some assistance, pt was able to void and urine was collected. Pt brought back to her room and bedding was changed due to incontinence. Pt drank about half a cup of water. Pt once again declined IV after this RN educated pt on importance of IV fluids in the setting of a possible UTI Pts daughter Pia reached out to this RN regarding care of mother, pts daughter states that this is her second UTI within this past month Pt was able to tolerate PO water and Ceftin with no difficulty Daughter came to pick pt up
== END 2022-10-13 20:02 | disposition home or self-care (01) ==
PROVIDERS: Emergency Provider Emergency Medicine; PCP Nurse Practitioner Family
DX: N39.0 Urinary tract infection, site not specified (principal); M25.562 Pain in left knee; R94.31 Abnormal electrocardiogram [ECG] [EKG]; Z20.822 Contact with and (suspected) exposure to COVID-19; Z20.828 Contact with and (suspected) exposure to other viral communicable diseases; Z79.899 Other long term (current) drug therapy
CPT/HCPCS: 0241U; 36415; 73564; 80048; 80076; 80307; 81001; 82077; 82947; 84484; 85025; 85610; 87086; 87088; 87186; 93005; 99284

== ENCOUNTER 2022-12-04 09:30 | Outpatient (REF) | payer MEDICARE, SELFPAY ==
[2022-12-04 11:26] LABS: MANUAL DIFF FLAG NO
[2022-12-04 11:32] LABS: Basophils Absolute Auto 0.1 X10*3/uL (0.0-0.2); Basophils Percent Auto 0.8 % (0-2); Eosinophils Absolute Auto 0.3 X10*3/uL (0.0-0.4); Eosinophils Percent Auto 4.1 % (0-4); Hematocrit 40.5 % (37.0-47.0); Hemoglobin 13.4 g/dl (12.0-16.0); Imm Gran Abs Auto 0.01 X10*3/uL (0.00-0.03); Imm Gran Pct Auto 0.2 % (0.0-0.4); Lymphocytes Absolute Auto 1.6 X10*3/uL (1.2-4.9); Lymphocytes Percent Auto 23.8 % (20-40); Mean Corpuscular HGB Conc 33.1 g/dl (31.0-35.0); Mean Corpuscular Hemoglobin 30.6 pg (27.0-33.0); Mean Corpuscular Volume 92.5 fL (80.0-98.0); Mean Platelet Volume 10.5 fL (9.4-12.3); Monocytes Absolute Auto 0.3 X10*3/uL (0.1-1.2); Monocytes Percent Auto 5.1 % (2-11); Neutrophils Absolute Auto 4.4 x10*3/uL (2.0-8.3); Platelet Count 152 X10*3/uL (160-400); Red Blood Count 4.38 X10*6/uL (4.20-5.50); Red Cell Distribution Width 12.7 % (11.0-16.0); White Blood Count 6.7 X10*3/uL (4.8-10.8)
[2022-12-04 12:12] LABS: Alanine Aminotransferase 88 U/L (0-31); Alkaline Phosphatase 112 U/L (39-117); Anion Gap 14 (12-20); Aspartate Amino Transferase 65 U/L (5-31); Bilirubin Total 0.9 mg/dL (0.0-1.0); Blood Urea Nitrogen 38 mg/dL (9-16); Calcium 9.2 mg/dL (8.4-10.2); Carbon Dioxide 22 mmol/L (22-29); Chloride 111 mmol/L (96-108); Cholesterol 105 mg/dL; Estimated Glomerular Filt Rate 35; Glucose Fasting 81 mg/dL (60-99); HDL Cholesterol 39 mg/dL; LDL Cholesterol Calculated 51 mg/dl; Potassium 4.2 mmol/L (3.3-5.1); Sodium 143 mmol/L (135-145); Total Protein 6.6 g/dL (6.5-8.0); Triglycerides 77 mg/dL
[2022-12-04 12:33] LABS: Folate 7.3 ng/mL (> or = 4.0); TSH reflex Free T4 0.19 uIU/mL (0.32-4.0); Vitamin B12 > 2000 pg/mL (200-900)
[2022-12-04 14:33] LABS: Free T4 (Free Thyroxine) 1.24 ng/dL (0.71-1.85)
== END 2022-12-04 09:31 | disposition home or self-care (01) ==
LOC: HO.HMGCLDS 09:30
PROVIDERS: PCP Nurse Practitioner Family; Visit Provider Nurse Practitioner Family
DX: K81.9 Cholecystitis, unspecified (principal); E53.8 Deficiency of other specified B group vitamins; E78.5 Hyperlipidemia, unspecified; F03.90 Unspecified dementia, unspecified severity, without behavioral disturbance, psychotic disturbance, mood disturbance, and anxiety; I10 Essential (primary) hypertension
CPT/HCPCS: 36415; 80053; 80061; 82607; 82746; 84439; 84443; 85025

== ENCOUNTER 2022-12-17 10:42 | Outpatient (REF) | payer MEDICARE, SELFPAY ==
[2022-12-17 13:58] LABS: Basophils Absolute Auto 0.1 X10*3/uL (0.0-0.2); Basophils Percent Auto 0.8 % (0-2); Eosinophils Absolute Auto 0.4 X10*3/uL (0.0-0.4); Eosinophils Percent Auto 5.4 % (0-4); Hemoglobin 13.3 g/dl (12.0-16.0); Imm Gran Abs Auto 0.02 X10*3/uL (0.00-0.03); Imm Gran Pct Auto 0.3 % (0.0-0.4); Lymphocytes Absolute Auto 1.3 X10*3/uL (1.2-4.9); Lymphocytes Percent Auto 20.4 % (20-40); MANUAL DIFF FLAG SCAN; Mean Corpuscular HGB Conc 33.3 g/dl (31.0-35.0); Mean Corpuscular Hemoglobin 31.1 pg (27.0-33.0); Mean Corpuscular Volume 93.5 fL (80.0-98.0); Monocytes Absolute Auto 0.3 X10*3/uL (0.1-1.2); Monocytes Percent Auto 4.9 % (2-11); Neutrophils Absolute Auto 4.5 x10*3/uL (2.0-8.3); Neutrophils Percent Auto 68.2 % (45-73); PLT CLUMP 1; Red Blood Count 4.28 X10*6/uL (4.20-5.50); Red Cell Distribution Width 12.4 % (11.0-16.0); SCAN SMEAR FLAG 1
[2022-12-17 14:06] LABS: Alanine Aminotransferase 76 U/L (0-31); Albumin Level 3.7 g/dL (3.5-5.0); Alkaline Phosphatase 112 U/L (39-117); Anion Gap 15 (12-20); Aspartate Amino Transferase 70 U/L (5-31); Bilirubin Total 0.7 mg/dL (0.0-1.0); Blood Urea Nitrogen 40 mg/dL (9-16); Carbon Dioxide 21 mmol/L (22-29); Chloride 112 mmol/L (96-108); Estimated Glomerular Filt Rate 36; Glucose Random 141 mg/dL (60-115); Potassium 4.6 mmol/L (3.3-5.1); Sodium 143 mmol/L (135-145); Total Protein 6.8 g/dL (6.5-8.0)
[2022-12-17 14:40] LABS: Mean Platelet Volume 10.6 fL (9.4-12.3); Platelet Count 134 X10*3/uL (160-400); SLIDE REVIEW VERIFIED; White Blood Count 6.5 X10*3/uL (4.8-10.8)
== END 2022-12-17 10:43 | disposition home or self-care (01) ==
LOC: HO.HMGCLDS 10:42
PROVIDERS: PCP Nurse Practitioner Family; Visit Provider Nurse Practitioner Family
DX: R74.8 Abnormal levels of other serum enzymes (principal)
CPT/HCPCS: 36415; 80053; 85025

== ENCOUNTER 2023-03-18 07:27 | Emergency (ER) | payer MEDICARE, SELFPAY ==
--- NOTE | ~2023-03-18 | XR_ITS ---
EXAMINATION: Right elbow, right hand wrist and wrist and right shoulder. CLINICAL INDICATIONS: Pain. COMPARISON: None. TECHNIQUE: Right hand wrist 4 views, right elbow 3 views and right shoulder 3 views. FINDINGS: Right hand/wrist: There is mild osteopenia with loss of PIP and DIP joints of all digits. No fracture or bony erosive changes or scarring periapical spurring. No visible acute fracture or dislocation. There is no subluxation. Right elbow: Suboptimal lateral view. There is no visible acute fracture or dislocation. Joint space cannot be evaluated. The soft tissues are normal. Right humerus: There is a right humeral neck fracture with mild impaction but no dislocation suspected. The AC joint space is reduced and so is the glenohumeral joint space. No soft tissue abnormality. XR/XR hand wrist RT IMPRESSION: 1. Right humeral neck fracture with mild impaction but no dislocation suspected. 2. There is no visible acute fracture or dislocation in the right hand or the right elbow. 3. There is mild osteopenia with degenerative changes PIP and DIP joints of all digits. Mild DJD right shoulder.
--- NOTE | ~2023-03-18 | XR_ITS ---
EXAMINATION: XR HUMERUS, RIGHT CLINICAL INFORMATION: Right arm pain. COMPARISON: None available. TECHNIQUE: AP and lateral views of the right humerus. FINDINGS: There is an acute right humeral surgical neck fracture with mild superomedial displacement of the distal fragment. Mild right acromioclavicular degenerative joint changes are seen. The right glenohumeral joint appears normally aligned. The visualized right ribs are intact. The soft tissues are unremarkable. XR/XR humerus RT IMPRESSION: 1. Acute, mildly displaced right humeral surgical neck fracture. 2. Mild right acromioclavicular degenerative joint changes.
--- NOTE | ~2023-03-18 | CT_ITS ---
EXAMINATION: CT CERVICAL SPINE WITHOUT CONTRAST CLINICAL INFORMATION: Neck pain status post fall. COMPARISON: Cervical spine CT scan dated 08/28/2020. TECHNIQUE: Multiple axial images of the cervical spine were obtained without the administration of intravenous contrast. This CT examination was performed using dose optimization techniques as appropriate, variously including the following: *Automated exposure control *Adjustment of mA and/or kV according to patient size (this includes techniques or standardized protocols for targeted exams where dose is matched to indication/reason for exam; i.e. extremities or head) *Use of iterative reconstruction technique DLP: 286.29 mGy-cm FINDINGS: There is mild reversal the normal cervical lordosis with apex at C4. Mild to severe multilevel degenerative disc disease is seen most pronounced from C4-5 to C6-7 with disc space narrowing, periarticular sclerosis and mild marginal osteophyte formation. Mild bilateral neural foraminal narrowing is seen at these levels as well. The vertebral bodies and odontoid processes are intact. Moderate odontoid articular degenerative changes are seen. Mild to moderate multilevel bilateral facet arthropathy is seen. The spinous and transverse processes are intact. The cervical soft tissues are unremarkable. Moderate atherosclerosis is seen in the carotid bulbs bilaterally. A dominant thyroid nodule seen in the upper pole of the right lobe measuring up to 3.8 cm in cc dimension (image 25, series 15). CT/CT cervical spine wo IV con IMPRESSION: 1. Mild reversal the normal cervical lordosis may be secondary to positioning and/or muscle spasm. 2. Multilevel degenerative changes without acute abnormality. 3. A dominant thyroid nodule seen in the upper pole of the right lobe measuring up to 3.8 cm in cc dimension. This is amenable to nonemergent thyroid ultrasound for additional evaluation and monitoring.
--- NOTE | ~2023-03-18 | CT_ITS ---
EXAMINATION: CT HEAD WITHOUT CONTRAST CLINICAL INFORMATION: Head pain status post fall. COMPARISON: Head CT scan dated 08/28/2020. TECHNIQUE: Contiguous axial imaging was performed from the skull base to vertex without intravenous administration of contrast. Coronal and sagittal reformatted images were obtained. This CT examination was performed using dose optimization techniques as appropriate, variously including the following: *Automated exposure control *Adjustment of mA and/or kV according to patient size (this includes techniques or standardized protocols for targeted exams where dose is matched to indication/reason for exam; i.e. extremities or head) *Use of iterative reconstruction technique DLP: 616.84 mGy-cm FINDINGS: Encephalomalacia is seen in the posterior left cerebellum with CSF attenuation. No mass effect or midline shift. There is mild widening of the cortical sulci and associated ventriculomegaly. The lateral ventricles are symmetrical. The third and fourth ventricles are in their normal midline position. The basilar and prepontine cisterns are unremarkable. Mild periventricular microvascular changes. Neurovascular channel versus lacunar infarcts in the left basal ganglia and insular cortex. There is no acute intra or extracerebral abnormality. There is no mass effect or midline shift. Sections through the bony calvarium are unremarkable. The orbits are intact. The paranasal sinuses show moderate sphenoid air-fluid levels, right greater than left. The mastoid air cells are clear. Sigmoid nasal septal deviation without significant change. Mild debris in the right external auditory canal. CT/CT head/brain wo IV con IMPRESSION: 1. No acute intracranial pathology. 2. Moderate sphenoid sinus inflammatory changes.
--- NOTE | ~2023-03-18 | XR_ITS ---
EXAMINATION: Right elbow, right hand wrist and wrist and right shoulder. CLINICAL INDICATIONS: Pain. COMPARISON: None. TECHNIQUE: Right hand wrist 4 views, right elbow 3 views and right shoulder 3 views. FINDINGS: Right hand/wrist: There is mild osteopenia with loss of PIP and DIP joints of all digits. No fracture or bony erosive changes or scarring periapical spurring. No visible acute fracture or dislocation. There is no subluxation. Right elbow: Suboptimal lateral view. There is no visible acute fracture or dislocation. Joint space cannot be evaluated. The soft tissues are normal. Right humerus: There is a right humeral neck fracture with mild impaction but no dislocation suspected. The AC joint space is reduced and so is the glenohumeral joint space. No soft tissue abnormality. XR/XR elbow RT 2V IMPRESSION: 1. Right humeral neck fracture with mild impaction but no dislocation suspected. 2. There is no visible acute fracture or dislocation in the right hand or the right elbow. 3. There is mild osteopenia with degenerative changes PIP and DIP joints of all digits. Mild DJD right shoulder.
--- NOTE | ~2023-03-18 | XR_ITS ---
EXAMINATION: Right elbow, right hand wrist and wrist and right shoulder. CLINICAL INDICATIONS: Pain. COMPARISON: None. TECHNIQUE: Right hand wrist 4 views, right elbow 3 views and right shoulder 3 views. FINDINGS: Right hand/wrist: There is mild osteopenia with loss of PIP and DIP joints of all digits. No fracture or bony erosive changes or scarring periapical spurring. No visible acute fracture or dislocation. There is no subluxation. Right elbow: Suboptimal lateral view. There is no visible acute fracture or dislocation. Joint space cannot be evaluated. The soft tissues are normal. Right humerus: There is a right humeral neck fracture with mild impaction but no dislocation suspected. The AC joint space is reduced and so is the glenohumeral joint space. No soft tissue abnormality. XR/XR shoulder RT min 2V IMPRESSION: 1. Right humeral neck fracture with mild impaction but no dislocation suspected. 2. There is no visible acute fracture or dislocation in the right hand or the right elbow. 3. There is mild osteopenia with degenerative changes PIP and DIP joints of all digits. Mild DJD right shoulder.
[2023-03-18 07:47] VITALS: BP 132/100; PULSE 69; RESP 12; TEMP 36.2; O2SAT 100; BMI 23.0
[2023-03-18 09:03] VITALS: BP 158/78; PULSE 67; RESP 16; O2SAT 100
--- NOTE | 2023-03-18 09:13 | PC.NURSE ---
pt right arm covered in bruises from the shoulder area to the hand, hand is also swollen and the entire arm is very tender to touch, pt is able to move the arm and good cms. pt states that she lost her balance and fell denies hitting her head and loc but states that she was on the ground for about 10min until her daughter arrived. pt is not on blood thinners, according to the daughter the bruising and swelling started on Wednesday
--- NOTE | 2023-03-18 09:15 | ED_ITS ---
HPI - Fall General Chief Complaint: Fall Stated Complaint: fall Time Seen by Provider: 03/18/23 08:56 Source: patient, family and RN notes reviewed Mode of arrival: ambulatory Limitations: no limitations History of Present Illness HPI Narrative: This is a 77-year-old female, with a past medical history CVA, type 2 diabetes, hypertension, presenting to the emergency department for evaluation of right shoulder right elbow right hand wrist pain. Patient reports that her right arm has been bothering her for the last 2 weeks. Daughter reports that patient had a recent fall, when asked about this recent fall, patient reports that she is unsteady on her feet and while she was getting up she fell. Daughter reports that patient was found on the ground, and patient reports that she was only on the ground for about 10 minutes. Daughter confirms that it was only 10 minutes as daughter lives with patient. Denies hitting her head or loss of consciousness. She denies headache, dizziness, chest pain, shortness of breath, abdominal pain, nausea, vomiting, or diarrhea. She has baseline urinary incontinence, denies dysuria, hematuria, urinary frequency or urgency. No other complaints or concerns at this time. MD complaint: fall Onset (ago): day(s) Fall from: chair Place fall occurred: home Loss of consciousness: none Prolonged down time: yes and minute(s) Symptoms prior to fall: none Context: history of frequent falls Severity: moderate Quality: aching Associated symptoms (after fall): denies Related Data Home Medications Medication Instructions Recorded Confirmed ergocalciferol (vitamin D2) 1,000 2,000 unit PO DAILY 07/24/22 12/10/22 unit capsule Previous Rx's Medication Instructions Recorded cyanocobalamin (vitamin B-12) 1,000 mcg PO DAILY 90 days #90 caps 01/20/21 1,000 mcg capsule thiamine HCl (vitamin B1) 100 mg 100 mg PO DAILY 90 days #90 tabs 01/20/21 tablet nifedipine 60 mg tablet,extended 60 mg PO DAILY 90 days #90 tabs 07/20/22 release 24 hr atorvastatin 80 mg tablet 80 mg PO BEDTIME 90 days #90 tabs 07/22/22 carvedilol 6.25 mg tablet 6.25 mg PO BID #180 tabs 10/20/22 lisinopril 40 mg tablet 40 mg PO BEDTIME #90 tabs 10/20/22 sennosides 8.6 mg tablet (Senna 17.2 mg PO BEDTIME 90 days #180 01/27/23 Laxative) tabs trazodone 50 mg tablet 25 mg PO BEDTIME PRN insomnia #30 01/27/23 tabs lorazepam 1 mg tablet 1 mg PO BEDTIME PRN anxiety 30 02/24/23 days #30 tabs Allergies Allergy/AdvReac Type Severity Reaction Status Date / Time No Known Allergies Allergy Verified 12/10/22 15:55 Review of Systems Review of Systems: Yes all other systems are reviewed and are negative Constitutional: Constitutional: Reports as per [facility] Past Medical History Medical History Anxiety Bradycardia, sinus CAD (coronary artery disease) CKD (chronic kidney disease) stage 3, GFR 30-59 ml/min Colonoscopy refused Complete heart block CVA (cerebral vascular accident) Diabetic neuropathy, type II diabetes mellitus Elevated liver enzymes Fall HTN (hypertension) Hypertension Mammogram declined Noncompliance Surgical History Aortocoronary bypass status Social History Social History Household Members: Family Household Members Other:: 2 Housing: House Do you presently have visiting nurse or other home services: No Alcohol intake: never Patient Tobacco Use Status: Former Tobacco user Cigarettes Per Day: 1 Years Smoked: 60 Smoked in Last 30 Days: No e-Cigarette/Vaping Use: Never Used Second Hand Smoke Exposure: No Use of substances other than those prescribed or required for medical reasons: No Advance Directives: Yes Advance Directives on File: Yes Advance Directives Date on File: 08/27/20 service: No Current occupational status: retired Cognitive needs: No Hearing needs: No Vision needs: No Physical Exam 2 Vital Signs: Vital Signs: Last Vital Signs Temp 97.1 F 03/18/23 07:47 Pulse 66 03/18/23 11:30 Resp 18 03/18/23 11:30 BP 158/71 H 03/18/23 11:30 Pulse Ox 100 03/18/23 11:30 O2 Del Method Room Air 03/18/23 11:30 BMI result Body Mass Index 23.0 Const: General: cooperative, comfortable and no acute distress Orientation/consciousness: patient oriented x3 Limitations: no limitations HEENT: Head: Yes normal to inspection, Yes normocephalic, Yes atraumatic, No Paige's sign and No raccoon eyes Ears: hearing grossly normal bilaterally and TM's normal bilaterally (No hemotympanum) General nose exam: Normal external nose present Face and sinus: Yes normal facial exam Mouth: Normal oral and palatal mucosa present, oropharynx normal and moist mucous membranes Throat: Yes posterior oropharynx normal Eyes: General: appearance normal, both eyes and all related structures Eyelids: Yes eyelids normal Conjunctivae: conjunctivae normal Sclerae: sclerae normal Pupils: Equal, round and reactive pupils present EOM: EOMs intact bilaterally Neck: Neck: Yes normal visual inspection, Yes full ROM and Yes no lymphadenopathy Lymphatic: no lymphadenopathy noted Chest: Chest palpation & inspection: normal inspection of the chest Resp: Effort & Inspection: normal respiratory effort and able to speak in complete sentences Auscultation: clear to auscultation bilaterally, no crackles, no rales, no rhonchi and no wheezes Cardio: Rate: regular rate Rhythm: regular rhythm Heart sounds: S1 normal heart sound present and S2 normal heart sound present GI: Inspection: Yes normal to inspection Skin: General skin exam: no rashes or lesions noted Trauma: no lacerations or abrasions Wounds: no wounds Neuro: General: patient oriented x3 and moves all extremities Cranial nerves: Yes Equal, round and reactive pupils present Extrem: Other: Right arm with tenderness to palpation diffusely throughout right shoulder, right humerus, right elbow, and right wrist. Patient able to make a fist. Radial pulses 2+. Scattered ecchymosis noted from the right elbow distally. Right hand is edematous, non erythematous, decreased range of motion of the right wrist. Patient refuses to move right elbow. General: Yes normal to inspection Right upper extremity: normal to inspection Left upper extremity: normal to inspection Right lower extremity: normal to inspection Left lower extremity: normal to inspection Course Reevaluation(s) Reevaluation #1: X-rays reviewed as acute mildly displaced right humeral surgical neck fracture. There are right AC degenerative joint changes noted. C-spine normal, there is a thyroid nodule in the upper pole of the right lobe. Head CT unremarkable. Discussed results with patient. Will be placed in a sling and given orthopedic follow-up. Patient understands and agrees with plan. Time: 11:16 Medical Decision Making Medical Decision Making MDM Narrative: This is a 77-year-old female presenting to the emergency department for evaluation of right arm pain. Patient reports that she has had ongoing right arm pain for the last 2 weeks. On arrival, vital signs within normal limits. Patient has extensive bruising to her right arm as well as tenderness throughout her right arm. Will order x-rays. Given her age, will obtain head CT and cervical spine CT. Patient has no neurologic deficits on examination. Head is normocephalic atraumatic. No hemotympanum to suggest ICH for head injury. Patient lives with daughter at home, daughter does not believe she needs any additional resources through Case Management. Patient reports that several days ago was mechanical, denies any head trauma or LOC. No chest pain, shortness of breath or palpitations. Differential Diagnosis Differential Diagnoses: The differential diagnosis associated with the presentation includes Fracture, strain, sprain, contusion, ICH Admission/Observation Consideration of admission/observation: Escalation of care including admission/observation considered Patient would have been admitted to the hospital had her work up had any findings where hospital admission was appropriate and her clinical presentation warranted hospital admission. Radiology Impression Discussion of test interpretation with radiology: I have reviewed the radiologist's reading. Radiologist Impression: EXAMINATION: XR HUMERUS, RIGHT CLINICAL INFORMATION: Right arm pain.? COMPARISON: None available.? TECHNIQUE: AP and lateral views of the right humerus. FINDINGS: There is an acute right humeral surgical neck fracture with mild superomedial displacement of the distal fragment. Mild right acromioclavicular degenerative joint changes are seen. The right glenohumeral joint appears normally aligned. The visualized right ribs are intact. The soft tissues are unremarkable.? XR/XR humerus RT IMPRESSION: 1.? Acute, mildly displaced right humeral surgical neck fracture. 2.? Mild right acromioclavicular degenerative joint changes. ? Dictated By: Jean Cook MD Signed By: <Electronically signed by Jean Cook MD in [place]> 03/18/23 1029 EXAMINATION: Right elbow, right hand wrist and wrist and right shoulder. CLINICAL INDICATIONS: Pain. COMPARISON: None. TECHNIQUE: Right hand wrist 4 views, right elbow 3 views and right shoulder 3 views. FINDINGS: Right hand/wrist: There is mild osteopenia with loss of PIP and DIP joints of all digits. No fracture or bony erosive changes or scarring periapical spurring. No visible acute fracture or dislocation. There is no subluxation. Right elbow: Suboptimal lateral view. There is no visible acute fracture or dislocation. Joint space cannot be evaluated. The soft tissues are normal. Right humerus: There is a right humeral neck fracture with mild impaction but no dislocation suspected. The AC joint space is reduced and so is the glenohumeral joint space. No soft tissue abnormality. XR/XR shoulder RT min 2V IMPRESSION: 1.? Right humeral neck fracture with mild impaction but no dislocation suspected. 2.? There is no visible acute fracture or dislocation in the right hand or the right elbow. 3. There is mild osteopenia with degenerative changes PIP and DIP joints of all digits. Mild DJD right shoulder. Dictated By: David Krause MD Signed By: <Electronically signed by David Krause MD in [place]> 03/18/23 1031 DD/ 1000 TD/TT:? Student Success Advisor: SASHA DD/ 1000 EXAMINATION: CT CERVICAL SPINE WITHOUT CONTRAST CLINICAL INFORMATION: Neck pain status post fall.? COMPARISON: Cervical spine CT scan dated 08/28/2020. TECHNIQUE: Multiple axial images of the cervical spine were obtained without the administration of intravenous contrast.? This CT examination was performed using dose optimization techniques as appropriate, variously including the following: *Automated exposure control *Adjustment of mA and/or kV according to patient size (this includes techniques or standardized protocols for targeted exams where dose is matched to indication/reason for exam; i.e. extremities or head) *Use of iterative reconstruction technique DLP: 286.29 mGy-cm FINDINGS: There is mild reversal the normal cervical lordosis with apex at C4. Mild to severe multilevel degenerative disc disease is seen most pronounced from C4-5 to C6-7 with disc space narrowing, periarticular sclerosis and mild marginal osteophyte formation. Mild bilateral neural foraminal narrowing is seen at these levels as well. The vertebral bodies and odontoid processes are intact. Moderate odontoid articular degenerative changes are seen. Mild to moderate multilevel bilateral facet arthropathy is seen. The spinous and transverse processes are intact. The cervical soft tissues are unremarkable. Moderate atherosclerosis is seen in the carotid bulbs bilaterally. A dominant thyroid nodule seen in the upper pole of the right lobe measuring up to 3.8 cm in cc dimension (image 25, series 15). CT/CT cervical spine wo IV con IMPRESSION: 1.? Mild reversal the normal cervical lordosis may be secondary to positioning and/or muscle spasm. 2.? Multilevel degenerative changes without acute abnormality. 3.? A dominant thyroid nodule seen in the upper pole of the right lobe measuring up to 3.8 cm in cc dimension. This is amenable to nonemergent thyroid ultrasound for additional evaluation and monitoring. ? ? Dictated By: Jean Cook MD Signed By: <Electronically signed by Jean Cook MD in [place]> 03/18/23 1045 DD/ 1010 Discharge Plan Discharge Clinical Impression: Closed fracture of neck of humerus, Thyroid nodule Patient Disposition: Home, Self-Care Instructions: Arm Fracture in Adults (ED) Additional Instructions: You have a mildly displaced right humeral neck fracture. Please wear sling for comfort. Please follow-up with Orthopedics, call today to make an appointment. Your imaging also revealed a thyroid nodule, please follow-up with your primary care physician regarding these findings. You may take Tylenol as needed for pain. If any new or worsening symptoms occur please return for re-evaluation. Prescriptions: No Action thiamine HCl (vitamin B1) 100 mg tablet 100 mg PO DAILY 90 Days Qty: 90 0RF cyanocobalamin (vitamin B-12) 1,000 mcg capsule 1,000 mcg PO DAILY 90 Days Qty: 90 0RF nifedipine 60 mg tablet extended release 24hr 60 mg PO DAILY 90 Days Qty: 90 1RF atorvastatin 80 mg tablet 80 mg PO BEDTIME 90 Days Qty: 90 2RF lisinopril 40 mg tablet 40 mg PO BEDTIME Qty: 90 1RF carvedilol 6.25 mg tablet 6.25 mg PO BID Qty: 180 1RF sennosides [Senna Laxative] 8.6 mg tablet 17.2 mg PO BEDTIME 90 Days Qty: 180 0RF trazodone 50 mg tablet 25 mg PO BEDTIME PRN (Reason: insomnia) Qty: 30 2RF lorazepam 1 mg tablet 1 mg PO BEDTIME PRN (Reason: anxiety) 30 Days Qty: 30 0RF Vitamin D2 1,000 unit Capsule 2,000 unit PO DAILY Referrals: [facility] [place] [facility] [Provider Group] Interventions: ED Discharge Assessment Last Done: 03/18/23 12:28 Discharge Date/Time: 03/18/23 12:28
[2023-03-18 11:30] VITALS: BP 158/71; PULSE 66; RESP 18; O2SAT 100
== END 2023-03-18 12:28 | disposition home or self-care (01) ==
PROVIDERS: Emergency Provider Emergency Medicine; PCP Nurse Practitioner Family
DX: S42.211A Unspecified displaced fracture of surgical neck of right humerus, initial encounter for closed fracture (principal); W07.XXXA Fall from chair, initial encounter; R26.81 Unsteadiness on feet; R29.6 Repeated falls; E11.22 Type 2 diabetes mellitus with diabetic chronic kidney disease; I12.9 Hypertensive chronic kidney disease with stage 1 through stage 4 chronic kidney disease, or unspecified chronic kidney disease; N18.30 Chronic kidney disease, stage 3 unspecified; Z91.81 History of falling; Z86.73 Personal history of transient ischemic attack (TIA), and cerebral infarction without residual deficits; Z87.891 Personal history of nicotine dependence; Z79.899 Other long term (current) drug therapy; Y93.9 Activity, unspecified; Y92.039 Unspecified place in apartment as the place of occurrence of the external cause; Y99.9 Unspecified external cause status
CPT/HCPCS: 70450; 72125; 73030; 73060; 73070; 73110; 73130; 99284

== ENCOUNTER 2023-03-23 08:14 | Outpatient (AMB) | payer MEDICARE, SELFPAY ==
--- NOTE | 2023-03-23 08:24 | A.OFFVIS_ITS ---
Intake Vital Signs 03/23/23 08:28 Height 5 ft 3 in Weight 130 lb BMI 23.0 Handedness Right Intake Visit Reasons: FC-right humeral surgical neck fracture Intake Note: Ilir is a 77 year old right hand dominant female who presents today for a fracture care appointment for her right humeral fx, DOI 03/15/23. Patient reports having sharp pain with any sudden movements. She states that her ROM is limited due to the pain. Patient reports falling on her right side due to being unsteady Denies numbness and tingling. Allergies No Known Allergies Allergy (Verified 12/10/22 15:55) HPI FC-right humeral surgical neck fracture HPI Details 77-year-old right hand dominant female who presents in the office today, as a new patient, for an evaluation of right upper extremity pain. The patient presented to the ED on 03/18/2023 status post a fall while at home. She states the right upper extremity had been painful for 2 weeks. Her daughter monica rted in the ED she was found on the ground 10 minutes after the fall occurred. She was placed in a sling and referred to Orthopedics. The patient reports pain with sudden movements. She claims her ROM is limited due to pain. She denies numbness or tingling. The patient is currently living with her daughter. [facility] Medical History Anxiety Bradycardia, sinus CAD (coronary artery disease) CKD (chronic kidney disease) stage 3, GFR 30-59 ml/min Colonoscopy refused Complete heart block CVA (cerebral vascular accident) Diabetic neuropathy, type II diabetes mellitus Elevated liver enzymes Fall HTN (hypertension) Hypertension Mammogram declined Noncompliance Surgical History Aortocoronary bypass status Social History Household Members: Family Household Members Other:: 2 Housing: House Do you presently have visiting nurse or other home services: No Alcohol intake: never Patient Tobacco Use Status: Former Tobacco user Cigarettes Per Day: 1 Years Smoked: 60 e-Cigarette/Vaping Use: Never Used Second Hand Smoke Exposure: No Advance Directives Date on File: 08/27/20 service: No Current occupational status: retired Cognitive needs: No Hearing needs: No Vision needs: No Review of Systems Const All systems reviewed & are unremarkable except as noted in HPI and below Physical Exam Vital Signs: BMI result Body Mass Index 23.0 Const General: cooperative and no acute distress Orientation/consciousness: patient oriented x3 Resp Effort & Inspection: normal respiratory effort and able to speak in complete sentences Cardio Peripheral pulses: Peripheral pulses 2+ throughout Skin General skin exam: no rashes or lesions noted Neuro General: patient oriented x3 Extrem Other: Right shoulder: Forward flexion to 30 degrees. Able to reach mouth with flexion at the elbow. Ecchymosis extending from the bicep distally to the right wrist. Right hand: Normal to inspection. No ecchymosis, erythema, or edema. Able to perform full finger flexion, extension, abduction, adduction, finger cross, okay sign, and thumbs up without deficit. Able to make a closed fist. Sensation intact. Capillary refill is brisk. Radial pulse intact. Office Procedures Fracture Care Fracture Billing Code: Fracture Billing Code Assessment & Plan Assessment & Plan (1) Fracture of proximal end of right humerus: Code(s): S42.201A - Unspecified fracture of upper end of right humerus, initial encounter for closed fracture Plan Ms. Schreiber is a 77-year-old right hand dominant female who presents in the office today, as a new patient, for an evaluation of right upper extremity pain. The patient presented to the ED on 03/18/2023 status post a fall while at home. She states the right upper extremity had been painful for 2 weeks. Her daughter reported in the ED she was found on the ground 10 minutes after the fall occurred. She was placed in a sling and referred to Orthopedics. The patient reports pain with sudden movements. She claims her ROM is limited due to pain. She denies numbness or tingling. The patient is currently living with her daughter. I educated the patient she can continue to wear the sling for comfort. She will need to come out of the sling while at home to allow the arm to hand. I educated the patient she can apply heat and ice to help with pain and edema in the should er. She can work on gentle ROM is the elbow, wrist, and hand. I anticipate in 4 weeks she will be able to attend formal physical therapy. Follow up will be in 4 weeks with repeat x-rays, or sooner if needed. X-rays of the right shoulder, obtained on 03/18/2023, revealed: 1. Acute, mildly displaced right humeral surgical neck fracture. 2. Mild right acromioclavicular degenerative joint changes. Patient Instructions: Scribed for Sharee Pederson PA-C by Sandra Hankins curator medical museum, on 03/23/2023 at 8:16 am, EST. Coding Level of Care Code New Pt Level 4 (47685) Diagnoses Fracture of proximal end of right humerus S42.201A CPT Codes Fracture Care - Fracture Billing Code: Fracture Billing Code ([id number])
[2023-03-23 08:28] VITALS: BMI 23.0
== END 2023-03-23 10:01 | disposition home or self-care (01) ==
PROVIDERS: PCP Nurse Practitioner Family; Visit Provider Physician Assistant
DX: S42.211A Unspecified displaced fracture of surgical neck of right humerus, initial encounter for closed fracture (principal)
CPT/HCPCS: 99204

== ENCOUNTER → 2023-03-23 08:14 | Outpatient (BNVA) | payer MEDICARE, SELFPAY | PROVIDERS: PCP Nurse Practitioner Family; Visit Provider Physician Assistant | DX: S42.201A Unspecified fracture of upper end of right humerus, initial encounter for closed fracture (principal) | CPT/HCPCS: 99202 ==

== ENCOUNTER 2023-03-25 07:37 | Outpatient (AMB) | payer MEDICARE, SELFPAY ==
[2023-03-25 07:51] VITALS: BP 120/78; PULSE 75; O2SAT 98; BMI 19.0
--- NOTE | 2023-03-25 07:51 | A.OFFPC_ITS ---
Vital Signs 03/25/23 07:51 Height 5 ft 3 in Weight 107 lb 2 oz BMI 19.0 BP 120/78 Blood Pressure Location Lt brachial Position Sitting Pulse 75 Pulse Source Pulse Oximeter Pulse Oximetry (%) 98 Oxygen Delivery Method Room Air Intake Visit Reasons: Annual Physical Allergies No Known Allergies Allergy (Verified 03/25/23 08:58) Medication List - Last Reconciled 03/25/23 by TOÑO Avila- atorvastatin 80 mg PO BEDTIME 90 days carvedilol 6.25 mg PO BID cyanocobalamin (vitamin B-12) 1,000 mcg PO DAILY 90 days ergocalciferol (vitamin D2) 2,000 units PO DAILY lorazepam 1 mg PO BEDTIME PRN 30 days nifedipine ER 60 mg PO DAILY 90 days sennosides (Senna Laxative) 17.2 mg (2 x 8.6 mg) PO BEDTIME 90 days thiamine HCl (vitamin B1) 100 mg PO DAILY 90 days trazodone 25 mg (1/2 x 50 mg) PO BEDTIME PRN Tobacco use date assessed: 03/25/23 Fall risk assessment: 2 + Falls in past year Last assessed Fall Risk: 03/25/23 Dental Screening Dental Screen Date: 03/25/23 Did you have a dental visit in the last 12 months?: No Did you have a dental problem in the last 6 months where you did not have access to dental care?: No Was dental information given to patient?: No HPI Annual Physical HPI Details Pt is a diabetic, on a statin. Last A1C was 5.0, due for repeat. Due for microalbumin. Denies polyuria, polydipsia, and neuropathy. Pt denies any signs and symptoms of hypoglycemia and does know how to correct it. HTN: Blood pressure is managed with carvedilol 6.25mg bid and nifedipine 60mg. Denies chest pain, shortness of breath, headache, dizziness, and blurred vision. Pt does not follow up with cardiology or nephrology, refuses. Refused bone density, mammo, and colonoscopy. Refused EKG due to sling and tenderness of RUE. Function of pacer was uploaded 2 days ago, missing results. Pt lives with her daughter who is her primary caregiver. Large thyroid nodule on recent exam, will order US. Pt had a recent fall which resulted in a fracture of the proximal end of right humerus. She is currently in a sling and is following up with ortho. [facility] Medical History Anxiety Bradycardia, sinus CAD (coronary artery disease) CKD (chronic kidney disease) stage 3, GFR 30-59 ml/min Colonoscopy refused Complete heart block CVA (cerebral vascular accident) Diabetic neuropathy, type II diabetes mellitus Elevated liver enzymes Fall HTN (hypertension) Hypertension Mammogram declined Noncompliance Surgical History Aortocoronary bypass status Social History Household Members: Family Household Members Other:: 2 Housing: House Do you presently have visiting nurse or other home services: No Alcohol intake: never Patient Tobacco Use Status: Former Tobacco user Cigarettes Per Day: 1 Years Smoked: 60 e-Cigarette/Vaping Use: Never Used Second Hand Smoke Exposure: No Advance Directives Date on File: 08/27/20 service: No Current occupational status: retired Cognitive needs: No Hearing needs: No Vision needs: No Questionnaire Thrive Questionnaire Date Thrive assessed: 01/05/22 AUDIT C Alcohol Use Questionnaire (AUDIT-C) 1. How often do you have a drink containing alcohol?: Never Total Score: 0 LUCIA-7 AMB Questionnaire LUCIA-7 Date LUCIA - 7 assessed: 01/05/22 Source: Developed by Drs. Telly Schroeder, Ana Maria Jones, Camilo Matthews and colleagues, with an educational shawn from [employer]. Review of Systems Const Reports as per HPI Physical exam (Primary Care) Vital Signs: Last Vital Signs Pulse 75 03/25/23 07:51 BP 120/78 03/25/23 07:51 Pulse Ox 98 03/25/23 07:51 Oxygen Delivery Method Room Air 03/25/23 07:51 BMI result Body Mass Index 19.0 Tobacco/Smoking Status: Tobacco use Status Tobacco use date assessed 03/25/23 03/25/23 07:59 Patient Tobacco Use Status Former Tobacco user 03/25/23 07:59 e-Cigarette/Vaping Use Never Used 03/25/23 07:59 Thrive Assessment: Date of Thrive Assessment Date Thrive assessed 06/13/22 08/31/23 07:59 Const General: cooperative Orientation/consciousness: patient oriented x3 Neck Other: ? large thyroid nodule right side Resp Effort & Inspection: normal respiratory effort Auscultation: clear to auscultation bilaterally and diminished lung sounds Cardio Rate: regular rate Rhythm: regular rhythm Heart sounds: S1 normal heart sound present, S2 normal heart sound present and no murmurs Neuro General: patient oriented x3 Extrem Other: bilat feet: + sensation with use of monofilament, +1 edema to BLE, right>left, swelling to right hand, RUE in sling, full ROM to fingers, + radial pulse, tenderness with slightest movement RUE Psych Appearance: grossly normal Mental Status: mental status grossly normal Speech and movement: Normal speech and movement present Affect: normal affect Attitude: cooperative Thought process: Normal thought process present Thought content: Normal thought content present Insight: Good insight present (Psych) Judgement: Good judgement present (Psych) Assessment and Plan Assessment & Plan (1) Diabetic neuropathy, type II diabetes mellitus: Code(s): E11.40 - Type 2 diabetes mellitus with diabetic neuropathy, unspecified Plan: Labs ordered (2) HTN (hypertension): Code(s): I10 - Essential (primary) hypertension Qualifiers: Hypertension type: unspecified Qualified Code(s): I10 - Essential (primary) hypertension (3) Thyroid nodule: Code(s): E04.1 - Nontoxic single thyroid nodule (4) Fracture of proximal end of right humerus: Code(s): S42.201A - Unspecified fracture of upper end of right humerus, initial encounter for closed fracture Plan The patient agreed to the use of a biomedical equipment tech for this encounter. Scribed for WALDEMAR Olson by Candelaria Aiken biomedical equipment tech, on 03/25/2023 at 08:25 EST. Orders: Orders Comprehensive [place]. Panel Fast Today I10 - Essential (primary) hypertension Lipid Panel Today I10 - Essential (primary) hypertension TSH reflex Free T4 Today I10 - Essential (primary) hypertension Complete Blood Count Auto Diff Today I10 - Essential (primary) hypertension UA CC w/rflx Micro + Cult Today I10 - Essential (primary) hypertension Microalbumin, Random (w Creat) Today E11.40 - Type 2 diabetes mellitus with diabetic neuropathy, unspecified Hemoglobin A1c Today E11.40 - Type 2 diabetes mellitus with diabetic neuropathy, unspecified US thyroid Today E04.1 - Nontoxic single thyroid nodule Coding Level of Care Code Est Pt Level 3 (26534) Diagnoses Diabetic neuropathy, type II diabetes mellitus E11.40 HTN (hypertension) I10 Hypertension type: unspecified Thyroid nodule E04.1 Fracture of proximal end of right humerus S42.201A
== END 2023-03-25 08:46 | disposition home or self-care (01) ==
PROVIDERS: PCP Nurse Practitioner Family; Visit Provider Nurse Practitioner Family
DX: E11.40 Type 2 diabetes mellitus with diabetic neuropathy, unspecified (principal); I10 Essential (primary) hypertension; E04.1 Nontoxic single thyroid nodule; S42.201A Unspecified fracture of upper end of right humerus, initial encounter for closed fracture
CPT/HCPCS: 99213

== ENCOUNTER 2023-03-25 08:44 | Outpatient (REF) | payer MEDICARE, SELFPAY ==
[2023-03-25 11:39] LABS: Basophils Absolute Auto 0.1 X10*3/uL (0.0-0.2); Basophils Percent Auto 0.9 % (0-2); Eosinophils Absolute Auto 0.1 X10*3/uL (0.0-0.4); Eosinophils Percent Auto 1.6 % (0-4); Hematocrit 34.7 % (37.0-47.0); Hemoglobin 11.9 g/dl (12.0-16.0); Imm Gran Abs Auto 0.05 X10*3/uL (0.00-0.03); Imm Gran Pct Auto 0.7 % (0.0-0.4); Lymphocytes Absolute Auto 1.6 X10*3/uL (1.2-4.9); Lymphocytes Percent Auto 22.6 % (20-40); MANUAL DIFF FLAG SCAN; Mean Corpuscular HGB Conc 34.3 g/dl (31.0-35.0); Mean Corpuscular Hemoglobin 31.1 pg (27.0-33.0); Mean Corpuscular Volume 90.6 fL (80.0-98.0); Monocytes Absolute Auto 0.3 X10*3/uL (0.1-1.2); Monocytes Percent Auto 4.8 % (2-11); Neutrophils Absolute Auto 4.8 x10*3/uL (2.0-8.3); Neutrophils Percent Auto 69.4 % (45-73); PLT CLUMP 1; Red Blood Count 3.83 X10*6/uL (4.20-5.50); SCAN SMEAR FLAG 1
[2023-03-25 12:07] LABS: Platelet Count 131 X10*3/uL (160-400); SLIDE REVIEW VERIFIED; White Blood Count 6.9 X10*3/uL (4.8-10.8)
[2023-03-25 12:34] LABS: Alanine Aminotransferase 12 U/L (0-31); Albumin Level 3.3 g/dL (3.5-5.0); Alkaline Phosphatase 98 U/L (39-117); Anion Gap 14 (12-20); Aspartate Amino Transferase 24 U/L (5-31); Bilirubin Total 0.6 mg/dL (0.0-1.0); Blood Urea Nitrogen 19 mg/dL (9-16); Calcium 8.7 mg/dL (8.4-10.2); Carbon Dioxide 22 mmol/L (22-29); Chloride 107 mmol/L (96-108); Cholesterol 93 mg/dL (<200); Estimated Glomerular Filt Rate 47; Glucose Fasting 103 mg/dL (60-99); HDL Cholesterol 44 mg/dL (>40); LDL Cholesterol Calculated 34 mg/dL (<100); Potassium 3.1 mmol/L (3.3-5.1); Sodium 140 mmol/L (135-145); TSH reflex Free T4 0.06 uIU/mL (0.32-4.0); Total Protein 5.9 g/dL (6.5-8.0); Triglycerides 76 mg/dL (<150)
[2023-03-25 12:59] LABS: Estimated Average Glucose 97 mg/dL
[2023-03-25 13:20] LABS: Free T4 (Free Thyroxine) 1.14 ng/dL (0.71-1.85)
== END 2023-03-25 08:45 | disposition home or self-care (01) ==
LOC: HO.HMGCLDS 08:44
PROVIDERS: PCP Nurse Practitioner Family; Visit Provider Nurse Practitioner Family
DX: E11.40 Type 2 diabetes mellitus with diabetic neuropathy, unspecified (principal); I10 Essential (primary) hypertension
CPT/HCPCS: 36415; 80053; 80061; 83036; 84439; 84443; 85025

== ENCOUNTER 2023-09-22 09:21 | Outpatient (AMB) | payer MEDICARE, SELFPAY ==
[2023-09-22 09:29] VITALS: BP 138/80; PULSE 66; O2SAT 98; BMI 17.0
--- NOTE | 2023-09-22 09:29 | A.OFFPC_ITS ---
Vital Signs 09/22/23 09:29 Height 5 ft 3 in Weight 96 lb 2 oz BMI 17.0 BP 138/80 Blood Pressure Location Rt brachial Position Sitting Pulse 66 Pulse Source Pulse Oximeter Pulse Oximetry (%) 98 Oxygen Delivery Method Room Air Intake Visit Reasons: 6 month follow up Intake Note: Pt is here to follow up for her DM and HTN Allergies No Known Allergies Allergy (Verified 09/22/23 10:13) Medication List - Last Reconciled 09/22/23 by WALDEMAR Avila atorvastatin 80 mg PO BEDTIME 90 days carvedilol 6.25 mg PO BID cyanocobalamin (vitamin B-12) 1,000 mcg PO DAILY 90 days ergocalciferol (vitamin D2) 2,000 units PO DAILY lorazepam 1 mg PO BEDTIME PRN 30 days nifedipine ER 60 mg PO DAILY 90 days sennosides (Senna Laxative) 17.2 mg (2 x 8.6 mg) PO BEDTIME 90 days thiamine HCl (vitamin B1) 100 mg PO DAILY 90 days trazodone 25 mg (1/2 x 50 mg) PO BEDTIME PRN Tobacco use date assessed: 09/22/23 Fall risk assessment: 2 + Falls in past year Last assessed Fall Risk: 09/22/23 Dental Screening Dental Screen Date: 09/22/23 Did you have a dental visit in the last 12 months?: No Did you have a dental problem in the last 6 months where you did not have access to dental care?: No Was dental information given to patient?: No HPI 6 month follow up HPI Details Pt is a diabetic, on a statin. A1C in office today is 5.2. Due for microalbumin, will order. Denies polyuria, polydipsia, and neuropathy. Pt denies any signs and symptoms of hypoglycemia and does know how to correct it. Pt reports checking her blood sugar intermittently. Pt will have labs drawn today. Refuses eye exam. Hx of vitamin B12 deficiency, will order labs. Pt's daughter is in the room today, she is pt's primary caregiver. [facility] Medical History Anxiety Bradycardia, sinus CAD (coronary artery disease) CKD (chronic kidney disease) stage 3, GFR 30-59 ml/min Colonoscopy refused Complete heart block CVA (cerebral vascular accident) Diabetic neuropathy, type II diabetes mellitus Elevated liver enzymes Fall HTN (hypertension) Hypertension Mammogram declined Noncompliance Surgical History Aortocoronary bypass status Social History Household Members: Family Household Members Other:: 2 Housing: House Do you presently have visiting nurse or other home services: No Alcohol intake: never Comment: refuses alarm Patient Tobacco Use Status: Former Tobacco user Cigarettes Per Day: 1 Years Smoked: 60 e-Cigarette/Vaping Use: Never Used Second Hand Smoke Exposure: No Advance Directives Date on File: 08/27/20 service: No Current occupational status: retired Cognitive needs: No Hearing needs: No Vision needs: No Questionnaire Thrive Questionnaire Date Thrive assessed: 01/05/22 AUDIT C Alcohol Use Questionnaire (AUDIT-C) 1. How often do you have a drink containing alcohol?: Never Total Score: 0 LUCIA-7 AMB Questionnaire LUCIA-7 Date LUCIA - 7 assessed: 01/05/22 Source: Developed by Drs. Telly Schroeder, Ana Maria Jones, Camilo Matthews and colleagues, with an educational shawn from [employer]. Review of Systems Const Reports as per HPI Physical exam (Primary Care) Vital Signs: Last Vital Signs Pulse 66 09/22/23 09:29 BP 138/80 09/22/23 09:29 Pulse Ox 98 09/22/23 09:29 Oxygen Delivery Method Room Air 09/22/23 09:29 BMI result Body Mass Index 17.0 Tobacco/Smoking Status: Tobacco use Status Tobacco use date assessed 09/22/23 09/22/23 09:36 Patient Tobacco Use Status Former Tobacco user 09/22/23 09:30 e-Cigarette/Vaping Use Never Used 09/22/23 09:30 Thrive Assessment: Date of Thrive Assessment Date Thrive assessed 01/05/22 09/22/23 09:30 Const General: cooperative Orientation/consciousness: patient oriented x3 Resp Other: faint crackles to right base Effort & Inspection: normal respiratory effort Cardio Rate: regular rate Rhythm: regular rhythm Heart sounds: S1 normal heart sound present and S2 normal heart sound present Neuro General: patient oriented x3 Extrem Other: refused foot exam Psych Appearance: grossly normal Speech and movement: Normal speech and movement present Affect: normal affect Results AMB Hemoglobin A1c AMB Hemoglobin A1c 5.2 % Last Edit by Mary Jo Alva CMA on 09/22/23 10: 07 Assessment and Plan Assessment & Plan (1) Diabetic neuropathy, type II diabetes mellitus: Code(s): E11.40 - Type 2 diabetes mellitus with diabetic neuropathy, unspecified Plan: Labs ordered (2) B12 deficiency: Code(s): E53.8 - Deficiency of other specified B group vitamins Plan: Labs ordered Plan The patient agreed to the use of a medical information specialist for this encounter. Scribed for WALDEMAR Olson by Candelaria Aiken medical information specialist, on 09/22/2023 at 09:40 EST. Orders: Orders Complete Blood Count Auto Diff Today E11.40 - Type 2 diabetes mellitus with diabetic neuropathy, unspecified TSH reflex Free T4 Today E11.40 - Type 2 diabetes mellitus with diabetic neuropathy, unspecified Lipid Panel Today E11.40 - Type 2 diabetes mellitus with diabetic neuropathy, unspecified Microalbumin, Random (w Creat) Today E11.40 - Type 2 diabetes mellitus with diabetic neuropathy, unspecified Vitamin B12 and Folate Today E53.8 - Deficiency of other specified B group vitamins Comprehensive [place]. Panel Fast Today E11.40 - Type 2 diabetes mellitus with diabetic neuropathy, unspecified UA CC w/rflx Micro + Cult Today E11.40 - Type 2 diabetes mellitus with diabetic neuropathy, unspecified AMB Hemoglobin A1c Today E11.40 - Type 2 diabetes mellitus with diabetic neuropathy, unspecified Coding Level of Care Code Est Pt Level 3 (20092) Diagnoses Diabetic neuropathy, type II diabetes mellitus E11.40 B12 deficiency E53.8
== END 2023-09-22 10:04 | disposition home or self-care (01) ==
PROVIDERS: PCP Nurse Practitioner Family; Visit Provider Nurse Practitioner Family
DX: E11.40 Type 2 diabetes mellitus with diabetic neuropathy, unspecified (principal); E53.8 Deficiency of other specified B group vitamins
CPT/HCPCS: 83036; 99213

== ENCOUNTER 2023-09-22 10:07 | Outpatient (REF) | payer MEDICARE, SELFPAY ==
[2023-09-22 13:46] LABS: MANUAL DIFF FLAG NO
[2023-09-22 13:56] LABS: Basophils Percent Auto 0.5 % (0-2); Eosinophils Absolute Auto 0.1 X10*3/uL (0.0-0.4); Eosinophils Percent Auto 1.7 % (0-4); Hematocrit 39.1 % (37.0-47.0); Hemoglobin 13.3 g/dl (12.0-16.0); Imm Gran Abs Auto 0.02 X10*3/uL (0.00-0.03); Imm Gran Pct Auto 0.3 % (0.0-0.4); Lymphocytes Absolute Auto 1.3 X10*3/uL (1.2-4.9); Lymphocytes Percent Auto 21.6 % (20-40); Mean Corpuscular Hemoglobin 30.5 pg (27.0-33.0); Mean Corpuscular Volume 89.7 fL (80.0-98.0); Mean Platelet Volume 11.3 fL (9.4-12.3); Monocytes Absolute Auto 0.3 X10*3/uL (0.1-1.2); Monocytes Percent Auto 5.7 % (2-11); Neutrophils Absolute Auto 4.2 x10*3/uL (2.0-8.3); Neutrophils Percent Auto 70.2 % (45-73); Platelet Count 112 X10*3/uL (160-400); Red Blood Count 4.36 X10*6/uL (4.20-5.50); Red Cell Distribution Width 13.5 % (11.0-16.0)
[2023-09-22 14:13] LABS: Alanine Aminotransferase 17 U/L (0-31); Albumin Level 3.8 g/dL (3.5-5.0); Alkaline Phosphatase 106 U/L (39-117); Anion Gap 13 (12-20); Aspartate Amino Transferase 27 U/L (5-31); Bilirubin Total 0.7 mg/dL (0.0-1.0); Blood Urea Nitrogen 24 mg/dL (9-16); Calcium 9.2 mg/dL (8.4-10.2); Carbon Dioxide 26 mmol/L (22-29); Chloride 104 mmol/L (96-108); Cholesterol 119 mg/dL (<200); Estimated Glomerular Filt Rate 43; Glucose Fasting 101 mg/dL (60-99); HDL Cholesterol 57 mg/dL (>40); LDL Cholesterol Calculated 48 mg/dL (<100); Potassium 3.4 mmol/L (3.3-5.1); Sodium 140 mmol/L (135-145); Total Protein 6.6 g/dL (6.5-8.0); Triglycerides 71 mg/dL (<150)
[2023-09-22 14:31] LABS: TSH reflex Free T4 0.92 uIU/mL (0.32-4.0)
[2023-09-22 15:07] LABS: Folate 3.4 ng/mL (> or = 4.0); Vitamin B12 684 pg/mL (200-900)
== END 2023-09-22 10:08 | disposition home or self-care (01) ==
LOC: HO.HMGCLDS 10:07
PROVIDERS: PCP Nurse Practitioner Family; Visit Provider Nurse Practitioner Family
DX: E11.40 Type 2 diabetes mellitus with diabetic neuropathy, unspecified (principal); E53.8 Deficiency of other specified B group vitamins; E87.6 Hypokalemia
CPT/HCPCS: 36415; 80053; 80061; 82607; 82746; 84443; 85025

== ENCOUNTER 2024-03-12 15:55 | Inpatient (IN) | payer MEDICARE, SELFPAY ==
[2024-03-12] VITALS (7 sets, daily range): BP systolic 123–178; BP diastolic 69–90; PULSE 60–91; RESP 15–20; TEMP 36.6–36.9; O2SAT 94–98; BMI 21.1
--- NOTE | ~2024-03-12 | XR_ITS ---
EXAMINATION: XR PELVIS CLINICAL INFORMATION: Trauma COMPARISON: Images of the left hip from 04/24/2020 TECHNIQUE: AP view of the pelvis. Nonstandard positioning with patient rotation. FINDINGS: The pelvic ring appears intact. Sacroiliac joints are preserved. Degenerative changes in both hips without displaced fracture. Extensive atherosclerotic peripheral vascular disease. Nonobstructive gas pattern. Bowel gas projects below the level of the pubic rami raising the possibility of rectal prolapse. XR/XR pelvis 1-2V IMPRESSION: No acute fracture.
--- NOTE | ~2024-03-12 | XR_ITS ---
EXAMINATION: XR HAND, LEFT CLINICAL INFORMATION: Trauma COMPARISON: Right hand 03/18/2023 TECHNIQUE: PA, lateral, and oblique views of the left hand. FINDINGS: Osteopenia. Minor degenerative changes. No acute fracture or dislocation. Subtle erosive changes of the radial styloid. Similar changes on prior right hand radiograph. This may represent an arthropathy. Clinical correlation advised. XR/XR hand LT min 3V IMPRESSION: No acute fracture or dislocation. Possible arthropathy.
--- NOTE | ~2024-03-12 | XR_ITS ---
EXAMINATION: XR CHEST CLINICAL INFORMATION: Weakness and syncope COMPARISON: 07/24/2022 and selected priors TECHNIQUE: 2 views of the chest were obtained. FINDINGS: Status post median sternotomy for bypass surgery. Nondisplaced fracture of the inferior wire sternal suture without evidence of dehiscence. A left pectoral dual-lead pacemaker in position. Heart and mediastinum within normal limits. No pulmonary edema. Clear lungs without focal consolidation, effusion or pneumothorax. XR/XR chest 2V IMPRESSION: No acute cardiopulmonary process detected.
--- NOTE | ~2024-03-12 | CT_ITS ---
EXAMINATION: CT HEAD WITHOUT CONTRAST CT CERVICAL SPINE WITHOUT CONTRAST CLINICAL INFORMATION: Fall, syncope. COMPARISON: CT head and cervical spine 03/18/2023 TECHNIQUE: CT of the head and cervical spine were performed without intravenous contrast. Multiplanar reformats were rendered and reviewed. This CT examination was performed using dose optimization techniques as appropriate, variously including the following: *Automated exposure control *Adjustment of mA and/or kV according to patient size (this includes techniques or standardized protocols for targeted exams where dose is matched to indication/reason for exam; i.e. extremities or head) *Use of iterative reconstruction technique DLP: 1362 mGy-cm. FINDINGS: CT head: Evaluation is slightly limited due to motion artifact. There is no evidence of acute intracranial hemorrhage or new edematous territorial infarction. Encephalomalacia within the inferior left cerebellar hemisphere and left aspect of vermis is again noted. Small remote infarcts within the gangliocapsular regions bilaterally, right thalamus and right cerebellum. Proportional prominence of the ventricles and cortical sulci with diffuse volume loss. Patchy hypodensities within the periventricular and deep white matter likely representing moderate chronic microangiopathy changes. No acute osseous or soft tissue abnormality. Mucous retention cysts within the right compartment of the sphenoid sinus and posterior ethmoid air cells. The otherwise the visualized paranasal sinuses and mastoids appear well-aerated. No deformity of the right nasal bone. CT cervical spine: The atlantooccipital and atlantoaxial articulations remain well aligned. Severe degenerative changes at the atlantodental articulations with retrodental soft tissue thickening. Straightening of cervical lordosis. The cervical vertebral bodies demonstrate normal height. Minimal retrolisthesis of C4 over C5 and C5 over C6. Minimal anterolisthesis of C3 over C4 and C7 over T1. Multilevel cervical spondylosis with marginal osteophytes, endplate degenerative changes and intervertebral disc space narrowing, most prominent at C4-C5 through C6-C7.Degenerative facet arthropathy at multiple levels. No acute fracture involving the cervical spine. The prevertebral soft tissues appear unremarkable. Approximately 2.7 cm hypodense right thyroid lobe nodule with asymmetric enlargement of the right thyroid lobe, previously measuring up to 2.4 cm. Another 0.8 cm hypodense nodule more inferiorly along the posterior aspect of the right upper lobe. No cervical lymphadenopathy. The lung apices are clear. CT/CT cervical spine wo IV con IMPRESSION: Evaluation is slightly limited due to motion artifact. CT head: No acute intracranial finding. Diffuse volume loss with moderate chronic microangiopathy, remote lacunar infarcts and left PICA vascular territory encephalomalacia. CT cervical spine: No acute fracture involving the cervical spine. Multilevel cervical spondylosis as detailed. Approximately 2.7 cm hypodense right thyroid lobe nodule, slightly increased from prior exam. Further evaluation with dedicated thyroid ultrasound is recommended if not already performed.
--- NOTE | 2024-03-12 16:24 | ED_ITS ---
HPI - General Adult General Chief complaint: Fall Stated complaint: UNWITNESSD FALL Time Seen by Provider: 03/12/24 16:23 Source: patient, EMS and RN notes reviewed History of Present Illness HPI narrative: 78-year-old female with a history diabetes, hypertension, coronary artery disease, bradycardia, CVA, presents for evaluation after an unwitnessed fall. Patient states that she lives at home with her . She went outside to get some fresh air and as she was walking around the car she ended up on the ground. Patient does not recall falling but states that she awoke to find herself on the ground. Apparently bystanders contacted EMS. Patient denies any other recent falls. Currently the patient is complaining of pain to the left hand where she has abrasions and some swelling. She denies any prodromal symptoms. She does not think she struck her head. Positive LOC. she denies any other recent falls. She does not use a cane or a walker. She denies any urinary symptoms. No URI symptoms. She has been eating and drinking normally. Patient is otherwise feeling well. Related Data Home Medications ?Medication ?Instructions ?Recorded ?Confirmed ergocalciferol (vitamin D2) 1,000 2,000 unit PO DAILY 07/24/22 09/22/23 unit capsule Previous Rx's ?Medication ?Instructions ?Recorded cyanocobalamin (vitamin B-12) 1,000 mcg PO DAILY 90 days #90 caps 01/20/21 1,000 mcg capsule thiamine HCl (vitamin B1) 100 mg 100 mg PO DAILY 90 days #90 tabs 01/20/21 tablet carvedilol 6.25 mg tablet 6.25 mg PO BID #180 tabs 08/31/23 nifedipine 60 mg tablet,extended 60 mg PO DAILY 90 days #90 tabs 08/31/23 release 24 hr atorvastatin 80 mg tablet 80 mg PO BEDTIME 90 days #90 tabs 11/05/23 sennosides 8.6 mg tablet (Senna 17.2 mg (2 x 8.6 mg) PO BEDTIME 90 12/07/23 Laxative) days #180 tabs trazodone 50 mg tablet 25 mg (1/2 x 50 mg) PO BEDTIME PRN 12/07/23 insomnia #45 tabs lorazepam 1 mg tablet 1 mg PO BEDTIME PRN anxiety 30 07/22/24 days #30 tabs Allergies Allergy/AdvReac Type Severity Reaction Status Date / Time No Known Allergies Allergy Verified 03/12/24 16:30 Review of Systems 2 Constitutional: Constitutional: Denies chills, Denies fever(s) and Denies headache(s) Eyes: Eyes: Denies change in vision and Denies other (No redness.) ENT: Denies headache(s), Denies nasal congestion, Denies nasal discharge, Denies neck pain and Denies sore throat Cardiovascular: Cardiovascular: Denies chest pain, Denies palpitations, Denies dyspnea, Denies dyspnea on exertion and Denies orthopnea Respiratory: Respiratory: Denies cough, Denies dyspnea and Denies dyspnea on exertion Gastrointestinal: Gastrointestinal: Denies abdominal pain, Denies melena, Denies hematochezia, Denies diarrhea, Denies nausea and Denies vomiting Genitourinary: Genitourinary: Denies dysuria and Denies urinary urgency Musculoskeletal: Musculoskeletal: Denies back pain, Denies muscle weakness, Denies neck pain and Denies numbness Integumentary/Breasts: Skin/Breast: Denies rash Neurologic: Denies headache(s), Denies focal weakness and Denies numbness Psychiatric: Psychiatric: Denies depression Endocrine: Endocrine: Denies palpitations PMFSH Past Medical History Medical History Elevated liver enzymes CKD (chronic kidney disease) stage 3, GFR 30-59 ml/min Complete heart block CVA (cerebral vascular accident) Anxiety Colonoscopy refused Mammogram declined Noncompliance CAD (coronary artery disease) Bradycardia, sinus Fall HTN (hypertension) Diabetic neuropathy, type II diabetes mellitus Hypertension Surgical History Aortocoronary bypass status Social History Social History Household Members: Family Household Members Other:: 2 Housing: House Do you presently have visiting nurse or other home services: No Alcohol intake: never Comment: refuses alarm Patient Tobacco Use Status: Former Tobacco user Cigarettes Per Day: 1 Years Smoked: 60 e-Cigarette/Vaping Use: Never Used Second Hand Smoke Exposure: No Advance Directives: Yes Advance Directives on File: Yes Advance Directives Date on File: 08/27/20 Do you have a plan to hurt others: No Plan service: No Current occupational status: retired Cognitive needs: No Hearing needs: No Vision needs: No Physical Exam ED Vital Signs: Vital Signs - 24 hr 03/12/24 16:26 03/12/24 17:25 03/12/24 17:26 Temperature 98.1 F Pulse Rate 67 69 69 Respiratory Rate 20 Blood Pressure 178/89 H 156/69 H 153/72 H Pulse Oximetry 96 Oxygen Delivery Method Room Air 03/12/24 17:29 03/12/24 19:12 Temperature 97.8 F Pulse Rate 79 60 Respiratory Rate 17 Blood Pressure 123/76 127/70 Pulse Oximetry 95 Oxygen Delivery Method Room Air BMI result Body Mass Index 21.1 Const Other: Patient is awake and alert. Interactive. Orientation/consciousness: No patient oriented x3 (Person and place) HENMT Other: Pupils equal round reactive to light. There was no nystagmus. Oropharynx is moist. Face and smile are symmetrical. Resp Other: Lung sounds clear and equal bilaterally Cardio Rate: regular rate Rhythm: regular rhythm GI Other: Abdomen is soft and nontender. Skin Other: Abrasion to the left temporal region. Abrasion to the left shoulder. Multiple abrasions and skin tears to the left arm and dorsum of the hand. There is soft tissue swelling along the left 3rd MTP joint, dorsal aspect. There is diffuse tenderness in this region. Ecchymosis to the left posterior thigh, buttock region. Superficial abrasions to the knees bilaterally. Stage I pressure area to the sacrococcygeal region. Neuro General: No patient oriented x3 (Person and place) Cranial nerves: Yes CN's II-XII intact bilaterally Extrem Other: Full range of motion of all joints. Tenderness to the dorsum of the left hand at the 3rd MTP joint. Pronation supination is intact. Radial pulses are +2 and equal bilaterally. Upper extremities are equal to lower extremities. There is no pelvis crepitus. Psych Speech and movement: Normal speech and movement present NIH Stroke Scale Internal: Initial- Upon Arrival Time: 16:30 Level of Consciousness: Alert Level of Consciousness Questions: Answers both questions correctly Level of Consciousness Commands: Performs both tasks correctly Best Gaze: Normal Visual: No visual loss Facial Palsy: Normal Motor Arm (Right): No drift Motor Arm (Left): No drift Motor Leg (Right): No drift Motor Leg (Left): No drift Limb Ataxia: Absent Sensory: Normal Best Language: No aphasia Dysarthia: Normal Extinction and Inattention: No abnormality Score: 0 Course Course Course Narrative: 6:30 p.m. patient is resting comfortably at this time. She has no new complaints at this time. She is not having any chest pain or shortness of breath. Reviewed all labs, essentially at the patient's baseline. Urinalysis pending at this time. I am concerned about discharging this patient given this episode of syncope. Suggest that the patient will be brought into the hospital for further evaluation and management. 7:15 p.m. Wounds cleaned and bandaged. Patient provided urine sample. Discussed with Dr. Morse for transfer of care. 8:00 a.m. p.m. urinalysis returned and positive for UTI. Dr. Morse notified. Medical Decision Making Medical Decision Making MDM Narrative: 78-year-old female who has a history of diabetes, hypertension, previous CVA, status post unwitnessed fall, concerning for syncope. Patient with multiple abrasions and skin tear. No indication for suturing. Check CT of the brain and cervical spine given the patient's fall as well as abrasion to the left side of her head. She is not having any neck or back pain. There are no focal deficits on exam. Unlikely acute CVA as the patient is neurologically intact and therefore no indication for tPA. Check labs for dehydration and UTI. Patient is not having any infectious symptoms such as URI or pneumonia. Check x-ray of the chest, left hand and pelvis. Given patient's cardiac history, concern for arrhythmia. EKG and troponin. Patient appears to have a pacemaker or AICD. Differential Diagnosis Differential Diagnoses: The differential diagnosis associated with the presentation includes Syncope Arrhythmia Dehydration Viral syndrome UTI Pneumonia Left hand fracture Pelvic fracture Admission/Observation Consideration of admission/observation: Escalation of care including admission/observation considered Consideration for hospital admission if clinically warranted Lab Data [facility] Lab Attestation statement: I reviewed the patient's lab results. 03/12/24 17:18 03/12/24 17:18 Labs: Lab Results 03/12/24 03/12/24 03/12/24 Range/Units 17:18 17:35 19:20 WBC 10.1 (4.8-10.8) X10*3/uL RBC 4.50 (4.20-5.50) X10*6/uL Hgb 14.4 (12.0-16.0) g/dl Hct 41.8 (37.0-47.0) % MCV 92.9 (80.0-98.0) fL MCH 32.0 (27.0-33.0) pg MCHC 34.4 (31.0-35.0) g/dl RDW 12.6 (11.0-16.0) % Plt Count 140 L (160-400) X10*3/uL MPV 10.1 (9.4-12.3) fL Immature Gran % (Auto) 0.4 (0.0-0.4) % Neut % (Auto) 83.7 H (45-73) % Lymph % (Auto) 10.1 L (20-40) % [place] % (Auto) 3.2 (2-11) % Eos % (Auto) 2.1 (0-4) % Baso % (Auto) 0.5 (0-2) % Lymph # (Auto) 1.0 L (1.2-4.9) X10*3/uL [place] # (Auto) 0.3 (0.1-1.2) X10*3/uL Eos # (Auto) 0.2 (0.0-0.4) X10*3/uL Baso # (Auto) 0.1 (0.0-0.2) X10*3/uL Abs Immat Gran (auto) 0.04 H (0.00-0.03) X10*3/uL Absolute Neuts (auto) 8.5 H (2.0-8.3) x10*3/uL Absolute Nucleated RBC 0.000 (0.0-0.012) X10*3/uL Nucleated RBC % (auto) 0.0 (0.0-0.2) /100WBC PT 11.2 (11.1-13.3) SEC INR 0.9 (0.9-1.1) Sodium 139 (135-145) mmol/L Potassium 4.5 D (3.3-5.1) mmol/L Chloride 107 (96-108) mmol/L Carbon Dioxide 19 L (22-29) mmol/L Anion Gap 18 (12-20) BUN 42 H (9-16) mg/dL Creatinine 1.95 H (0.5-1.4) mg/dL Estim Creat Clear Calc 19.6 Estimated GFR 25 Random Glucose 232 H (60-115) mg/dL Calcium 9.2 (8.4-10.2) mg/dL Magnesium 2.0 (1.6-2.6) mg/dL Total Bilirubin 0.6 (0.0-1.0) mg/dL AST 55 H (5-31) U/L ALT 77 H (0-31) U/L Alkaline Phosphatase 154 H (39-117) U/L Troponin I High Sens 6.3 (<3.5-17.0) ng/L Total Protein 7.1 (6.5-8.0) g/dL Albumin 3.9 (3.5-5.0) g/dL Lipase 22 (8-78) U/L Vitamin B12 493 (200-900) pg/mL Urine Color Yellow Urine Appearance Turbid Urine pH 5.5 (5.0-9.0) Ur Specific [place] 1.020 (1.005-1.025) Urine Protein 100 (2+) H (Neg-Trace) mg/dL Urine Glucose (UA) 500 H (Negative) mg/dL Urine Ketones Negative (Negative) mg/dL Urine Blood Small (1+) H (Negative) Urine Nitrite Positive H (Negative) Ur Leukocyte Esterase Moderate (2+) H (Negative) Urine RBC 6-10 H (0-2) /HPF Urine WBC >50 H (0-5) /HPF Ur Squamous Epith Cells 0-2 (0-2) /HPF Other Crystals Present Urine Bacteria 4+ (None Seen) Hyaline Casts 0-2 (0-2) /LPF Ethyl Alcohol < 10 mg/dL Influenza Type A (PCR) NEGATIVE (Negative) Influenza Type B (PCR) NEGATIVE (Negative) RSV RNA Qual (PCR) NEGATIVE (Negative) SARS-CoV-2 RNA (RT-PCR) NEGATIVE (Negative) Independent Interpretation I performed an independent interpretation of an: EKG (EKG 68 beats per minute, paced rhythm with PVC noted. No acute ischemic changes.) Radiology Impression Discussion of test interpretation with radiology: I have reviewed the radiologist's reading. Radiologist Impression: [address] [address] [address] Scan Report Signed Patient: Ilir Schreiber MR#: [id number] : 1945 Acct:[id number] Age/Sex: 78 / F ADM Date: 03/12/24 Loc: HO.ED Attending Dr: Ordering Physician: Dioni Alanis Date of Service: 03/12/24 Procedure(s): CT head/brain wo IV con Accession Number(s): [id number] cc: PADILLA LINDA MD; Dioni Alanis~ EXAMINATION: CT HEAD WITHOUT CONTRAST CT CERVICAL SPINE WITHOUT CONTRAST CLINICAL INFORMATION: Fall, syncope. COMPARISON: CT head and cervical spine 03/18/2023 TECHNIQUE: CT of the head and cervical spine were performed without intravenous contrast. Multiplanar reformats were rendered and reviewed. This CT examination was performed using dose optimization techniques as appropriate, variously including the following: *Automated exposure control *Adjustment of mA and/or kV according to patient size (this includes techniques or standardized protocols for targeted exams where dose is matched to indication/reason for exam; i.e. extremities or head) *Use of iterative reconstruction technique DLP: 1362 mGy-cm. FINDINGS: CT head: Evaluation is slightly limited due to motion artifact. There is no evidence of acute intracranial hemorrhage or new edematous territorial infarction. Encephalomalacia within the inferior left cerebellar hemisphere and left aspect of vermis is again noted. Small remote infarcts within the gangliocapsular regions bilaterally, right thalamus and right cerebellum. Proportional prominence of the ventricles and cortical sulci with diffuse volume loss. Patchy hypodensities within the periventricular and deep white matter likely representing moderate chronic microangiopathy changes. No acute osseous or soft tissue abnormality. Mucous retention cysts within the right compartment of the sphenoid sinus and posterior ethmoid air cells. The otherwise the visualized paranasal sinuses and mastoids appear well-aerated. No deformity of the right nasal bone. CT cervical spine: The atlantooccipital and atlantoaxial articulations remain well aligned. Severe degenerative changes at the atlantodental articulations with retrodental soft tissue thickening. Straightening of cervical lordosis. The cervical vertebral bodies demonstrate normal height. Minimal retrolisthesis of C4 over C5 and C5 over C6. Minimal anterolisthesis of C3 over C4 and C7 over T1. Multilevel cervical spondylosis with marginal osteophytes, endplate degenerative changes and intervertebral disc space narrowing, most prominent at C4-C5 through C6-C7.Degenerative facet arthropathy at multiple levels. No acute fracture involving the cervical spine. The prevertebral soft tissues appear unremarkable. Approximately 2.7 cm hypodense right thyroid lobe nodule with asymmetric enlargement of the right thyroid lobe, previously measuring up to 2.4 cm. Another 0.8 cm hypodense nodule more inferiorly along the posterior aspect of the right upper lobe. No cervical lymphadenopathy. The lung apices are clear. CT/CT head/brain wo IV con IMPRESSION: Evaluation is slightly limited due to motion artifact. CT head: No acute intracranial finding. Diffuse volume loss with moderate chronic microangiopathy, remote lacunar infarcts and left PICA vascular territory encephalomalacia. CT cervical spine: No acute fracture involving the cervical spine. Multilevel cervical spondylosis as detailed. Approximately 2.7 cm hypodense right thyroid lobe nodule, slightly increased from prior exam. Further evaluation with dedicated thyroid ultrasound is recommended if not already performed. Dictated By: Nemesio Hunter Signed By: <Electronically signed by Nemesio Hunter in [place]> 03/12/24 1757 DD/ 1701 TD/TT: Systems Programmer: [place] [address] XRay Report Signed Patient: Ilir Schreiber MR#: [id number] : 1945 Acct:[id number] Age/Sex: 78 / F ADM Date: 03/12/24 Loc: HO.ED Attending Dr: Ordering Physician: Dioni Alanis Date of Service: 03/12/24 Procedure(s): XR pelvis 1-2V Accession Number(s): [id number] cc: PADILLA LINDA MD; Dioni Alanis~ EXAMINATION: XR PELVIS CLINICAL INFORMATION: Trauma COMPARISON: Images of the left hip from 04/24/2020 TECHNIQUE: AP view of the pelvis. Nonstandard positioning with patient rotation. FINDINGS: The pelvic ring appears intact. Sacroiliac joints are preserved. Degenerative changes in both hips without displaced fracture. Extensive atherosclerotic peripheral vascular disease. Nonobstructive gas pattern. Bowel gas projects below the level of the pubic rami raising the possibility of rectal prolapse. XR/XR pelvis 1-2V IMPRESSION: No acute fracture. Dictated By: Jerry Javed MD Signed By: <Electronically signed by Jerry Javed MD in [place]> 03/12/24 174 DD/ 1704 TD/TT: Systems Programmer: [address] [address] XRay Report Signed Patient: Ilir Schreiber MR#: [id number] : 1945 Acct:[id number] Age/Sex: 78 / F ADM Date: 03/12/24 Loc: HO.ED Attending Dr: Ordering Physician: Dioni Alanis Date of Service: 03/12/24 Procedure(s): XR hand LT min 3V Accession Number(s): [id number] cc: PADILLA LINDA MD; Dioni Alanis~ EXAMINATION: XR HAND, LEFT CLINICAL INFORMATION: Trauma COMPARISON: Right hand 03/18/2023 TECHNIQUE: PA, lateral, and oblique views of the left hand. FINDINGS: Osteopenia. Minor degenerative changes. No acute fracture or dislocation. Subtle erosive changes of the radial styloid. Similar changes on prior right hand radiograph. This may represent an arthropathy. Clinical correlation advised. XR/XR hand LT min 3V IMPRESSION: No acute fracture or dislocation. Possible arthropathy. Dictated By: Jerry Javed MD Signed By: <Electronically signed by Jerry Javed MD in [place]> 03/12/241740 DD/ 1704 TD/TT: Systems Programmer: [address] [address] XRay Report Signed Patient: Ilir Schreiber MR#: [id number] : 1945 Acct:[id number] Age/Sex: 78 / F ADM Date: 03/12/24 Loc: HO.ED Attending Dr: Ordering Physician: Dioni Alanis Date of Service: 03/12/24 Procedure(s): XR chest 2V Accession Number(s): [id number] cc: Physician,Unknown ; Dioni Alanis~ EXAMINATION: XR CHEST CLINICAL INFORMATION: Weakness and syncope COMPARISON: 07/24/2022 and selected priors TECHNIQUE: 2 views of the chest were obtained. FINDINGS: Status post median sternotomy for bypass surgery. Nondisplaced fracture of the inferior wire sternal suture without evidence of dehiscence. A left pectoral dual-lead pacemaker in position. Heart and mediastinum within normal limits. No pulmonary edema. Clear lungs without focal consolidation, effusion or pneumothorax. XR/XR chest 2V IMPRESSION: No acute cardiopulmonary process detected. Dictated By: Jerry Javed MD Signed By: <Electronically signed by Jerry Javed MD in [place]> 03/12/24 1725 DD/ 1704 TD/TT: Systems Programmer: SAMANTHA Independent Historian Clinical information obtained from an independent historian. History obtained from or confirmed by: EMS External Record Review External record reviewed: Outpatient record and Prior outpatient labs Chronic Conditions Patient?s care impacted by: Diabetes and Hypertension Discharge Plan Discharge Clinical Impression: Syncope and collapse, Urinary tract infection Patient Disposition: Admitted As Inpatient
--- NOTE | 2024-03-12 16:36 | ECG_ITS ---
Test Reason : SYNCOPE Blood Pressure : / mmHG Vent. Rate : 068 BPM Atrial Rate : 067 BPM P-R Int : 178 ms QRS Dur : 126 ms QT Int : 418 ms P-R-T Axes : 003 -55 094 degrees QTc Int : 444 ms AV dual-paced rhythm with occasional Premature ventricular complexes Abnormal ECG When compared with ECG of 13-OCT-2022 12:15, Premature ventricular complexes are now Present Vent. rate has increased BY 7 BPM Referred By: Dioni Alanis Electronically Signed By:DEANGELO ALLEN
[2024-03-12 17:24] LABS: MANUAL DIFF FLAG NO
[2024-03-12 17:25] LABS: Basophils Absolute Auto 0.1 X10*3/uL (0.0-0.2); Basophils Percent Auto 0.5 % (0-2); Eosinophils Absolute Auto 0.2 X10*3/uL (0.0-0.4); Eosinophils Percent Auto 2.1 % (0-4); Hematocrit 41.8 % (37.0-47.0); Hemoglobin 14.4 g/dl (12.0-16.0); Imm Gran Abs Auto 0.04 X10*3/uL (0.00-0.03); Imm Gran Pct Auto 0.4 % (0.0-0.4); Lymphocytes Percent Auto 10.1 % (20-40); Mean Corpuscular HGB Conc 34.4 g/dl (31.0-35.0); Mean Corpuscular Volume 92.9 fL (80.0-98.0); Mean Platelet Volume 10.1 fL (9.4-12.3); Monocytes Absolute Auto 0.3 X10*3/uL (0.1-1.2); Monocytes Percent Auto 3.2 % (2-11); Neutrophils Absolute Auto 8.5 x10*3/uL (2.0-8.3); Neutrophils Percent Auto 83.7 % (45-73); Platelet Count 140 X10*3/uL (160-400); Red Cell Distribution Width 12.6 % (11.0-16.0); White Blood Count 10.1 X10*3/uL (4.8-10.8)
[2024-03-12 17:39] LABS: Alanine Aminotransferase 77 U/L (0-31); Albumin Level 3.9 g/dL (3.5-5.0); Alkaline Phosphatase 154 U/L (39-117); Anion Gap 18 (12-20); Aspartate Amino Transferase 55 U/L (5-31); Bilirubin Total 0.6 mg/dL (0.0-1.0); Blood Urea Nitrogen 42 mg/dL (9-16); Calcium 9.2 mg/dL (8.4-10.2); Carbon Dioxide 19 mmol/L (22-29); Chloride 107 mmol/L (96-108); Creatinine Clr Calc Pharmacy 19.6; Estimated Glomerular Filt Rate 25; Glucose Random 232 mg/dL (60-115); Lipase 22 U/L (8-78); Potassium 4.5 mmol/L (3.3-5.1); Sodium 139 mmol/L (135-145); Total Protein 7.1 g/dL (6.5-8.0)
[2024-03-12 17:41] LABS: INTERNATIONAL NORM RATIO 0.9 (0.9-1.1); Prothrombin Time 11.2 SEC (11.1-13.3)
[2024-03-12 17:42] LABS: Ethanol < 10 mg/dL
[2024-03-12 17:46] LABS: Troponin-I High Sensitivity 6.3 ng/L (<3.5-17.0)
[2024-03-12 18:02] LABS: Influenza A PCR NEGATIVE (Negative); Influenza B PCR NEGATIVE (Negative); Resp Syncy Virus RNA Qual PCR NEGATIVE (Negative); SARS COV2 PCR INHOUSE NEGATIVE (Negative)
[2024-03-12 18:50] LABS: Vitamin B12 493 pg/mL (200-900)
--- NOTE | 2024-03-12 19:23 | PC.NURSE ---
this rn assumed care of pt, pt alert to self and place and year. pt noted to have skin tare to the left hand and left elbow, both wrapped with clean dry gauze, pt noted to have tare to the left knee. pt able to void on bedpan at this time, urine sample obtained and sent to lab, ernie rogers for comfort. while pt rolling, pt noted to have significant bruising to the left hip which is tender to touch. vss.
[2024-03-12 19:31] LABS: Appearance Urine Turbid; Color Urine Yellow; Glucose Urine UA 500 mg/dL (Negative); Leukocyte Esterase Urine Moderate (2+) (Negative); Nitrite Urine Positive (Negative); PH 5.5 (5.0-9.0); UMIC TRIGGER UACC YES; Urine Blood Small (1+) (Negative); Urine Ketones Negative (Negative); Urine Protein 100 (2+) mg/dL (Neg-Trace)
[2024-03-12 19:38] LABS: Bacteria Urine 4+ (None Seen); Hyaline Casts Urine 0-2 /LPF (0-2); Other Crystals Urine Present; Squamous Epithelial Cell Urine 0-2 /HPF (0-2); UACC Culture Trigger YES; WBC Urine >50 /HPF (0-5)
--- NOTE | 2024-03-12 20:19 | P.HPHOSP_ITS ---
History of Present Illness Date of Service: 03/12/24 <MISSY Clemente - Last Filed: 03/12/24 20:36> Attending physician on admission: Gris Morse <MISSY Clemente - Last Filed: 03/12/24 20:36> Chief Complaint: syncope <MISSY Clemente - Last Filed: 03/12/24 20:36> 70-year-old female with history of imq-[id number]-iqqcehldb type 2 diabetes, hypertension, history of CVA, CKD stage 3, history of complete heart block s/p pacemaker placement, diabetic polyneuropathy, mood disorder presented to the ED via EMS following a syncopal episode just prior to arrival. Apparently she went outside for fresh air was walking around her car and passed out in the driveway. She does not recall the event and denies any prodrome including visual changes, lightheadedness, palpitations, shortness breath, chest pain. She awoke after an unspecified period of time surrounded by bystanders who called EMS. She denies any blood thinners. She has no history of prior falls. She does report pain in the left hand but does have full range of motion at the wrist and sustained several lacerations/abrasions with no ongoing bleeding. She states she primarily drinks tea throughout the day and drinks about 1 cup of water. Denies any changes to intake. She denies fevers, chills, sore throat, congestion, abdominal pain, nausea, vomiting, diarrhea, dysuria, hematuria, increased urinary frequency/urgency, cough. No recent illness. She currently has no complaints except for pain in the left hand. On arrival, patient hypertensive to 178/89. Orthostatics were positive with drop in SBP from 156--> 123 but no hypotension. Vitals otherwise stable. There is no leukocytosis or anemia. Creatinine is elevated from baseline at 1.95, baseline around 1.2-1.4. BUN 42. Electrolyte levels normal except for CO2 19. Glucose 232. AST 55, ALT 77 . Troponin 6.7. Urinalysis with 2+ leukocytes, positive nitrites, 1+ blood, moderate glucose, 2+ protein, positive urinary sediment, 4+ bacteria. Ethyl alcohol level undetectable. Negative for COVID, RSV, flu. CT of the head negative for acute intracranial abnormality. Diffuse volume loss and moderate chronic microangiopathy with remote lacunar infarcts and left PICA vascular territory encephalomalacia noted on head CT. Cervical spine CT negative for any acute osseous abnormality but shows degenerative changes. X-ray of the pelvis negative for osseous abnormality. X-ray of the left hand negative for fracture dislocation. <MISSY Clemente - Last Filed: 03/12/24 20:36> Review of Systems 2 Review of Systems: Yes all other systems are reviewed and are negative < MISSY Clemente - Last Filed: 03/12/24 20:36> [facility] Medical History: Medical History Elevated liver enzymes CKD (chronic kidney disease) stage 3, GFR 30-59 ml/min Complete heart block CVA (cerebral vascular accident) Anxiety Colonoscopy refused Mammogram declined Noncompliance CAD (coronary artery disease) Bradycardia, sinus Fall HTN (hypertension) Diabetic neuropathy, type II diabetes mellitus Hypertension <MISSY Clemenet - Last Filed: 03/12/24 20:36> Surgical History: Surgical History Aortocoronary bypass status <MISSY Clemente - Last Filed: 03/12/24 20:36> Social History: Social History Household Members: Family Household Members Other:: 2 Housing: House Do you presently have visiting nurse or other home services: No Alcohol intake: never Comment: refuses alarm Patient Tobacco Use Status: Former Tobacco user Cigarettes Per Day: 1 Years Smoked: 60 e-Cigarette/Vaping Use: Never Used Second Hand Smoke Exposure: No Advance Directives: Yes Advance Directives on File: Yes Advance Directives Date on File: 08/27/20 Do you have a plan to hurt others: No Plan service: No Current occupational status: retired Cognitive needs: No Hearing needs: No Vision needs: No <MISSY Clemente Last Filed: 03/12/24 20:36> Meds Allergies/Adverse reactions: Allergies Allergy/AdvReac Type Severity Reaction Status Date / Time No Known Allergies Allergy Verified 03/12/24 16:30 <MISSY Clemente Last Filed: 03/12/24 20:36> Home medications: Home Medications ?Medication ?Instructions ?Recorded ?Confirmed ?Last Taken ?Type ergocalciferol (vitamin D2) 1,000 2,000 unit PO DAILY 07/24/22 09/22/23 07/24/22 History unit capsule <MISSY Clemente - Last Filed: 03/12/24 20:36> Physical Exam 2 Vital Signs and Narrative: Vital Signs: Last Vital Signs Temp 97.8 F 03/12/24 19:12 Pulse 60 03/12/24 19:12 Resp 17 03/12/24 19:12 BP 127/70 03/12/24 19:12 Pulse Ox 95 03/12/24 19:12 O2 Del Method Room Air 03/12/24 19:12 BMI result Body Mass Index 21.1 <MISSY Clemente - Last Filed: 03/12/24 20:36> Constitutional - Awake and Alert, No apparent distress Eyes - PERRLA, EOMI Cardiovascular - S1S2, RRR, No edema Respiratory - Normal lung expansion, Normal respiratory effort, No respiratory distress, CTA bilaterally Gastrointestinal - NT / ND; +BS; No rebound or guarding Extremities - no calf tenderness bilaterally, no swelling Musculoskeletal - superficial abrasions and ecchymotic lesions of the LUE and left side of face. NO bony abnormality with full rom lue Skin - Warm/Dry Neurological - Alert & oriented x3, CN II-XII in tact, 5/5 strength BUE and BLE Psychological - Appropriate affect <MISSY Clemente - Last Filed: 03/12/24 20:36> Results Labs CBC and Chem 7: 03/12/24 17:18 03/12/24 17:18 <MISSY Clemente - Last Filed: 03/12/24 20:36> Labs: Laboratory Results - last 24 hr 03/12/24 03/12/24 03/12/24 17:18 17:35 19:20 MCV 92.9 MCH 32.0 MCHC 34.4 RDW 12.6 Plt Count 140 L MPV 10.1 Immature Gran % (Auto) 0.4 Neut % (Auto) 83.7 H Lymph % (Auto) 10.1 L [place] % (Auto) 3.2 Eos % (Auto) 2.1 Baso % (Auto) 0.5 Lymph # (Auto) 1.0 L [place] # (Auto) 0.3 Eos # (Auto) 0.2 Baso # (Auto) 0.1 Abs Immat Gran (auto) 0.04 H Absolute Neuts (auto) 8.5 H Absolute Nucleated RBC 0.000 Nucleated RBC % (auto) 0.0 PT 11.2 INR 0.9 Anion Gap 18 Estim Creat Clear Calc 19.6 Estimated GFR 25 Random Glucose 232 H Calcium 9.2 Magnesium 2.0 Total Bilirubin 0.6 AST 55 H ALT 77 H Alkaline Phosphatase 154 H Troponin I High Sens 6.3 Total Protein 7.1 Albumin 3.9 Lipase 22 Vitamin B12 493 Urine Color Yellow Urine Appearance Turbid Urine pH 5.5 Ur Specific [place] 1.020 Urine Protein 100 (2+) H Urine Glucose (UA) 500 H Urine Ketones Negative Urine Blood Small (1+) H Urine Nitrite Positive H Ur Leukocyte Esterase Moderate (2+) H Urine RBC 6-10 H Urine WBC >50 H Ur Squamous Epith Cells 0-2 Other Crystals Present Urine Bacteria 4+ Hyaline Casts 0-2 Ethyl Alcohol < 10 Influenza Type A (PCR) NEGATIVE Influenza Type B (PCR) NEGATIVE RSV RNA Qual (PCR) NEGATIVE SARS-CoV-2 RNA (RT-PCR) NEGATIVE <MISSY Clemente - Last Filed: 03/12/24 20:36> Imaging Radiologist's Impressions: Impressions Cervical Spine CT 03/12/24 17:01 IMPRESSION: Evaluation is slightly limited due to motion artifact. CT head: No acute intracranial finding. Diffuse volume loss with moderate chronic microangiopathy, remote lacunar infarcts and left PICA vascular territory encephalomalacia. CT cervical spine: No acute fracture involving the cervical spine. Multilevel cervical spondylosis as detailed. Approximately 2.7 cm hypodense right thyroid lobe nodule, slightly increased from prior exam. Further evaluation with dedicated thyroid ultrasound is recommended if not already performed. Head CT 03/12/24 17:01 IMPRESSION: Evaluation is slightly limited due to motion artifact. CT head: No acute intracranial finding. Diffuse volume loss with moderate chronic microangiopathy, remote lacunar infarcts and left PICA vascular territory encephalomalacia. CT cervical spine: No acute fracture involving the cervical spine. Multilevel cervical spondylosis as detailed. Approximately 2.7 cm hypodense right thyroid lobe nodule, slightly increased from prior exam. Further evaluation with dedicated thyroid ultrasound is recommended if not already performed. Chest X-Ray 03/12/24 17:04 IMPRESSION: No acute cardiopulmonary process detected. Hand X-Ray 03/12/24 17:04 IMPRESSION: No acute fracture or dislocation. Possible arthropathy. Pelvis X-Ray 03/12/24 17:04 IMPRESSION: No acute fracture. <MISSY Clemente - Last Filed: 03/12/24 20:36> Assessment and Plan (1) Urinary tract infection: Status: Acute <MISSY Clemente - Last Filed: 03/12/24 20:36> (2) Syncope and collapse: Status: Acute <MISSY Clemente - Last Filed: 03/12/24 20:36> (3) Acute kidney injury: Status: Acute <MISSY Clemente - Last Filed: 03/12/24 20:36> 70-year-old female with history of [id number] type 2 diabetes, hypertension, history of CVA, CKD stage 3, history of complete heart block s/p pacemaker placement, diabetic polyneuropathy, mood disorder admitted for further management of acute syncopal episode and RENÉE related to dehydration with uti #Acute syncopal episode -r/t orthostatis in the setting of dehydration/hypovolemia -Continue IVF -Head ct negative for acute intracranial abnormality but shows chronic microangiopathy, volume loss, and chronic lacunar infarcts -no acute osseous abnormality on cervical spine CT, pelvis x-ray, hand x-ray -ekg shows AV dual paced rhythm with occ RVs. trop wnl -monitor on tele -repeat orthos am #Acute UTI -UA with 3+ leuks, +nitrites, 3+ blood, +sediment, 4+ bacteria -IV ctx (initiated 03/12) -no leukocytosis, no sepsis -follow cultures # acute kidney injury -likely prerenal in the setting of acute dehydration/hypovolemia and infection -creatinine 1.9, baseline around 1.2-1.4 -continue IVF -avoid nephrotoxins -low-sodium diet -follow renal function/lytes # qit-mlaydsu-ealzevzin type 2 diabetes -POC glucose, diabetic diet -Humalog on sliding scale # hypertension -continue carvedilol, nifedipine # history of complete heart block s/p pacemaker placement -EKG shows AV dual paced rhythm with PVCs # CVA history/ HLD -statin DVT prophylaxis-renally adjusted Lovenox Full code Patient requires inpatient stay at least 2 midnights for management of acute syncopal episode and acute kidney injury related to dehydration and UTI requiring IV fluid resuscitation, IV antibiotics, close monitoring of hemodynamics <MISSY Clemente - Last Filed: 03/12/24 20:36> 70-year-old female with history of stz-hqvyovk-kjqtvrcqs type 2 diabetes, hypertension, history of CVA, CKD stage 3, history of complete heart block s/p pacemaker placement, diabetic polyneuropathy, mood disorder admitted for further management of acute syncopal episode and RENÉE related to dehydration with uti #Acute syncopal episode -r/t orthostatis in the setting of dehydration/hypovolemia -Continue IVF -Head ct negative for acute intracranial abnormality but shows chronic microangiopathy, volume loss, and chronic lacunar infarcts -no acute osseous abnormality on cervical spine CT, pelvis x-ray, hand x-ray -ekg shows AV dual paced rhythm with occ RVs. trop wnl -monitor on tele -repeat orthos am #Acute UTI -UA with 3+ leuks, +nitrites, 3+ blood, +sediment, 4+ bacteria -IV ctx (initiated 03/12) -no leukocytosis, no sepsis -follow cultures # acute kidney injury -likely prerenal in the setting of acute dehydration/hypovolemia and infection -creatinine 1.9, baseline around 1.2-1.4 -continue IVF -avoid nephrotoxins -low-sodium diet -follow renal function/lytes # daf-oyisncq-qvyilarrh type 2 diabetes -POC glucose, diabetic diet -Humalog on sliding scale # hypertension -hold carvedilol, nifedipine in setting of orthosis # history of complete heart block s/p pacemaker placement -EKG shows AV dual paced rhythm with PVCs # CVA history/ HLD -statin DVT prophylaxis-renally adjusted Lovenox Full code Patient requires inpatient stay at least 2 midnights for management of acute syncopal episode and acute kidney injury related to dehydration and UTI requiring IV fluid resuscitation, IV antibiotics, close monitoring of hemodynamics <Gris Morse MD - Last Filed: 03/12/24 20:41> Quality Stroke Does the patient have a stroke diagnosis?: No <MISSY Clemente - Last Filed: 03/12/24 20:36> VTE Prior VTE?: No <MISSY Clemente - Last Filed: 03/12/24 20:36> VTE Risk Level:: Medical - moderate - high <MISSY Clemente - Last Filed: 03/12/24 20:36> VTE Device Contraindication: Treatment Not Indicated <MISSY Clemente - Last Filed: 03/12/24 20:36> VTE Drug Contraindication: N/A - Med Ordered <MISSY Clemente - Last Filed: 03/12/24 20:36>
[2024-03-12] MEDS: cefTRIAXone sodium 1 GM in 0.9 % Sodium Chloride 50 ML IV (20:49)
[2024-03-12] MEDS: Enoxaparin Sodium 30 MG/0.3 ML SYRINGE SUBCUT (20:50)
--- NOTE | 2024-03-12 20:51 | PC.NURSE ---
per dr.vali tariq to hang antibiotics without cultures at this time. pt medicated per sep. pt normal sinus on tele 96-72bpm. at this time, LR not available on unit, hold on administration.
[2024-03-12] MEDS: Lactated Ringers 1,000 ML 100 ML IVCONT (21:42)
[2024-03-12 21:48] LABS: Glucose, Whole Blood 237 mg/dL (60-115)
[2024-03-12] MEDS: Insulin Lispro 100 UNIT/ML 3 ML VIAL SUBCUT (22:05)
--- NOTE | 2024-03-12 22:06 | PC.NURSE ---
poc 237, pt medicated per mar.
--- NOTE | 2024-03-12 22:53 | PC.NURSE ---
aware of pt bp, no new orders at this time.
[2024-03-13] VITALS (11 sets, daily range): BP systolic 127–186; BP diastolic 60–98; PULSE 57–96; RESP 12–20; TEMP 36.4–37.4; O2SAT 95–98; BMI 21.6
[2024-03-13 04:56] LABS: Basophils Absolute Auto 0.1 X10*3/uL (0.0-0.2); Basophils Percent Auto 0.5 % (0-2); Lymphocytes Percent Auto 10.1 % (20-40); Mean Corpuscular HGB Conc 34.9 g/dl (31.0-35.0); Mean Corpuscular Hemoglobin 32.1 pg (27.0-33.0); Monocytes Absolute Auto 0.4 X10*3/uL (0.1-1.2); Monocytes Percent Auto 4.1 % (2-11); PLT CLUMP 1; SCAN SMEAR FLAG 1
[2024-03-13 04:58] LABS: Eosinophils Absolute Auto 0.2 X10*3/uL (0.0-0.4); Eosinophils Percent Auto 2.1 % (0-4); Hemoglobin 12.2 g/dl (12.0-16.0); Imm Gran Abs Auto 0.02 X10*3/uL (0.00-0.03); Imm Gran Pct Auto 0.2 % (0.0-0.4); Mean Corpuscular Volume 92.1 fL (80.0-98.0); Mean Platelet Volume 10.2 fL (9.4-12.3); Red Cell Distribution Width 12.6 % (11.0-16.0)
[2024-03-13 05:00] LABS: MANUAL DIFF FLAG NO; Platelet Count 123 X10*3/uL (160-400); White Blood Count 9.5 X10*3/uL (4.8-10.8)
[2024-03-13 05:10] LABS: Anion Gap 12 (12-20); Blood Urea Nitrogen 41 mg/dL (9-16); Calcium 8.5 mg/dL (8.4-10.2); Carbon Dioxide 17 mmol/L (22-29); Chloride 111 mmol/L (96-108); Estimated Glomerular Filt Rate 27; Glucose Random 272 mg/dL (60-115); Potassium 4.1 mmol/L (3.3-5.1); Sodium 136 mmol/L (135-145)
--- NOTE | 2024-03-13 06:36 | PC.NURSE ---
pt placed into hospital bed for comfort at this time. purewick in place.
[2024-03-13] MEDS: Lactated Ringers 1,000 ML 100 ML IVCONT ×2 (07:09→16:08)
[2024-03-13] MEDS: Insulin Lispro 100 UNIT/ML 3 ML VIAL SUBCUT (07:09)
[2024-03-13 07:15] LABS: Glucose, Whole Blood 253 mg/dL (60-115)
--- NOTE | 2024-03-13 07:16 | PC.NURSE ---
Resumed care of pt at 0700. Pt up in bed eating breakfast, POC 253, 6 units of insulin given per MAR. Vital signs updated, pt noted to be hypertensive 174/78, LR running at 100mls/hr. Respirations even and unlabored, no increased WOB/SOB noted. Call zaldivar within reach, pt aware of plan to admit d/t UTI and syncopal episode.
--- NOTE | 2024-03-13 07:41 | MHC.EDTECH ---
this tech assumed care of pt at 0700, assisted pt sitting and standing to obtain orthostatic vital signs, pt tolerated well, purewick was put back into place.
--- NOTE | 2024-03-13 08:04 | PHA.MEDREC ---
Pharmacy Consult ? Medication Reconciliation Pharmacy has completed the medication reconciliation. Spoke with patient who admitted they do not know what they take for medications. Patient told me she does not have anyone who helps her either. Patient stated she takes what the pharmacy gives her. Used pharmacy claims.
[2024-03-13] MEDS: carvediloL 6.25 MG TABLET PO ×2 (08:45→20:49)
[2024-03-13 11:43] LABS: Glucose, Whole Blood 89 mg/dL (60-115)
--- NOTE | 2024-03-13 12:45 | MHC.CM.PN ---
CM met with Patient at bedside and addressed IMM with her; the original was given to Patient and a copy has been placed on the chart. Patient lives in a 2 family house on the second floor with her and she required no DME CHARGE RN. Patient may benefit from a PT Eval to assist with disposition;CM has initiated and will follow for dc planning. PCP is Dr. Michele Card.Patient's Daughter/Pia is the HCP. will transport to home.
--- NOTE | 2024-03-13 13:01 | P.CONNP_ITS ---
History of Present Illness Reason for Consult Consult date: 03/13/24 Reason for consult: RENÉE/CKD Chief Complaint Chief complaint: syncope, renée, uti History of Present Illness Narrative: RTANE CONSULTED for Renée on CKD in setting of syncope Events as noted in adm notes: sudden drop attack that PT has no recollection about. Note RENÉE on dam with bump in SCr and ques dehydration No prior drop attacks PMH as noted in records and detailed below Review of Systems Review of Systems Yes all other systems are reviewed and are negative Constitutional: Denies chills, Denies fever(s) and Denies headache(s) Eyes: Denies change in vision and Denies other (No redness.) Denies headache(s), Denies nasal congestion, Denies nasal discharge, Denies neck pain and Denies sore throat Cardiovascular: Denies chest pain, Denies palpitations, Denies dyspnea, Denies dyspnea on exertion and Denies orthopnea Respiratory: Denies cough, Denies dyspnea and Denies dyspnea on exertion Gastrointestinal: Denies abdominal pain, Denies melena, Denies hematochezia, Denies diarrhea, Denies nausea and Denies vomiting Musculoskeletal: Denies back pain, Denies muscle weakness, Denies neck pain and Denies numbness Skin/Breast: Denies rash Denies headache(s), Denies focal weakness and Denies numbness Psychiatric: Denies depression Endocrine: Denies palpitations PMFSH Past Medical History Medical History Elevated liver enzymes CKD (chronic kidney disease) stage 3, GFR 30-59 ml/min Complete heart block CVA (cerebral vascular accident) Anxiety Colonoscopy refused Mammogram declined Noncompliance CAD (coronary artery disease) Bradycardia, sinus Fall HTN (hypertension) Diabetic neuropathy, type II diabetes mellitus Hypertension Surgical History Surgical History Aortocoronary bypass status Social History Social History Household Members: Spouse Household Members Other:: 2 Housing: Apartment Do you presently have visiting nurse or other home services: No Alcohol intake: never Comment: refuses alarm Patient Tobacco Use Status: Current everyday Tobacco user Cigarettes Per Day: 4 Years Smoked: 60 e-Cigarette/Vaping Use: Never Used Second Hand Smoke Exposure: No Advance Directives Date on File: 08/27/20 service: No Current occupational status: retired Cognitive needs: No Hearing needs: No Vision needs: No Meds Allergies Allergy/AdvReac Type Severity Reaction Status Date / Time No Known Allergies Allergy Verified 03/12/24 16:30 Active Medications: Current Medications Acetaminophen (Acetaminophen 325 Mg Tablet) 650 mg PO Q6H PRN PRN Reason: Pain, Mild (Pain Scale 1-3), fever or headache Atorvastatin Calcium (Atorvastatin Calcium 80 Mg Tablet) 80 mg PO BEDTIME BROWN Calcium Carbonate (Calcium Carbonate 750 Mg Tab.Chew) 750 mg PO Q4H PRN PRN Reason: Heartburn Carvedilol (Carvedilol 6.25 Mg Tablet) 6.25 mg PO BID [facility]; Protocol Last Admin: 03/13/24 08:45 Dose: 6.25 mg Enoxaparin Sodium (Enoxaparin Sodium 30 Mg/0.3 Ml Syringe) 30 mg SUBCUT Q24H [facility] Last Admin: 03/12/24 20:50 Dose: 30 mg Glucose (Glucose Gel 15 Gm Gel..Gram.) 15 gm PO Q15M PRN; Protocol PRN Reason: per Hypoglycemia Standing Ord. Ceftriaxone Sodium 1 gm/ (Sodium Chloride) 50 mls @ 100 mls/hr IV Q24H [facility] Last Infusion: 03/12/24 21:19 Dose: Infused Lactated Ringer's (Lr) 1,000 mls @ 100 mls/hr IVCONT .Q10H [facility] Last Admin: 03/13/24 07:09 Dose: 100 mls/hr Dextrose (D10) 250 mls @ 750 mls/hr IV Q15M PRN; Protocol PRN Reason: per Hypoglycemia Standing Ord. Insulin Human Lispro (Insulin Lispro 100 Unit/Ml 3 Ml Vial) 0 unit SUBCUT QIDACHS [facility]; Protocol Last Admin: 03/13/24 11:54 Dose: Not Given Lorazepam (Lorazepam 1 Mg Tablet) 1 mg PO BEDTIME PRN PRN Reason: anxiety Magnesium Hydroxide (Milk Of Magnesia 30 Ml Oral.Susp) 30 ml PO DAILY PRN PRN Reason: Constipation Melatonin (Melatonin 3 Mg Tablet) 6 mg PO BEDTIME PRN PRN Reason: Insomnia Ondansetron HCl (Ondansetron Hcl 4 Mg/2 Ml Vial) 4 mg IVPUSH Q8H PRN PRN Reason: Nausea and Vomiting Senna (Sennosides 8.6 Mg Tablet) 17.2 mg PO BEDTIME BROWN Sodium Chloride (0.9 % Sodium Chloride Flush 3 Ml Syringe) 3 ml IVFLUSH QSHIFT [place]OWN Last Admin: 03/13/24 08:02 Dose: Not Given Trazodone HCl (Trazodone Hcl 25 Mg Halftab) 25 mg PO BEDTIME PRN PRN Reason: insomnia Physical Exam Vital Signs: Last Vital Signs Temp 97.5 F 03/13/24 12:09 Pulse 73 03/13/24 12:09 Resp 18 03/13/24 12:09 BP 186/70 H 03/13/24 12:09 Pulse Ox 98 03/13/24 12:09 O2 Del Method Room Air 03/13/24 12:09 BMI result Body Mass Index 21.6 Const Other: Patient is awake and alert. Interactive. Orientation/consciousness: No patient oriented x3 (Person and place) HEENT Other: Pupils equal round reactive to light. There was no nystagmus. Oropharynx is moist. Face and smile are symmetrical. Resp Other: Lung sounds clear and equal bilaterally Cardio Rate: regular rate Rhythm: regular rhythm GI Other: Abdomen is soft and nontender. Skin Other: Abrasion to the left temporal region. Abrasion to the left shoulder. Multiple abrasions and skin tears to the left arm and dorsum of the hand. There is soft tissue swelling along the left 3rd MTP joint, dorsal aspect. There is diffuse tenderness in this region. Ecchymosis to the left posterior thigh, buttock region. Superficial abrasions to the knees bilaterally. Stage I pressure area to the sacrococcygeal region. Neuro General: No patient oriented x3 (Person and place) Cranial nerves: Yes CN's II-XII intact bilaterally Extrem Other: Full range of motion of all joints. Tenderness to the dorsum of the left hand at the 3rd MTP joint. Pronation supination is intact. Radial pulses are +2 and equal bilaterally. Upper extremities are equal to lower extremities. There is no pelvis crepitus. Psych Speech and movement: Normal speech and movement present Results Lab Results 03/13/24 04:51 03/13/24 04:52 Lab results: Chemistry 03/12/24 03/13/24 17:18 04:52 Sodium 139 136 Potassium 4.5 D 4.1 Carbon Dioxide 19 L 17 L BUN 42 H 41 H Creatinine 1.95 H 1.82 H Calcium 9.2 8.5 D Hematology 03/12/24 03/13/24 17:18 04:51 WBC 10.1 9.5 Hgb 14.4 12.2 Plt Count 140 L 123 L Urinalysis 03/12/24 19:20 Urine Color Yellow Urine Appearance Turbid Urine pH 5.5 Ur Specific [place] 1.020 Urine Protein 100 (2+) H Urine Glucose (UA) 500 H Urine Ketones Negative Urine Blood Small (1+) H Urine Nitrite Positive H Ur Leukocyte Esterase Moderate (2+) H Urine RBC 6-10 H Urine WBC >50 H Ur Squamous Epith Cells 0-2 Hyaline Casts 0-2 Assessment and Plan (1) Urinary tract infection: Status: Acute (2) Syncope and collapse: Status: Acute (3) Acute kidney injury: Status: Acute Plan 70-year-old female with history of [id number] type 2 diabetes, hypertension, history of CVA, CKD stage 3, history of complete heart block s/p pacemaker placement, diabetic polyneuropathy, mood disorder admitted for further management of acute syncopal episode and RENÉE related to dehydration with uti 1. RENÉE: SCr ranhgge 1.5-2.0; c/w DN/HTN renal dis; sl improvement with IVF 2. CKD 3b: DN/HTN renal dis 3. Syncope: car w/u fopr arrythmia 4. MBD of CKD: track PTH/vit D 5. ANmeia: not active issue 6. Labile HTN: track BPs and avoid too low BP 7. UTI: on ABx REC: cont cautious IVF, ABX; card eval , track BP and avoid overmedicating; check orhtostatics Procedures Date of Service Date of Service: 03/13/24
--- NOTE | 2024-03-13 15:10 | P.PNIM_ITS ---
Subjective Subjective Date of Service: 03/13/24 Interval History: Being followed for syncope, RENÉE and UTI. Resting comfortably denies pain, no urinary symptoms of urgency, no frequency. Review of Systems All other system reviewed and are negative. Physical Exam 2 Vital Signs: Vital Signs: Last Vital Signs Temp 97.5 F 03/13/24 12:09 Pulse 73 03/13/24 12:09 Resp 18 03/13/24 12:09 BP 186/70 H 03/13/24 12:09 Pulse Ox 98 03/13/24 12:09 O2 Del Method Room Air 03/13/24 12:09 BMI result Body Mass Index 21.6 Const: Other: General resting comfortably in no acute distress. Anicteric sclera Neck no JVD. CVS regular rate rhythm, Respiratory lungs clear to auscultation, no respiratory distress, no wheeze, no rhonchi. Gastrointestinal abdomen soft, non tender, bowel sounds audible Left forearm ecchymotic lesions and superficial abrasions, full range of motion left elbow Extremities no LE edema. Neuro non focal , speech clear. Objective Data Active Medications Acetaminophen (Acetaminophen 325 Mg Tablet) 650 mg PO Q6H PRN PRN Reason: Pain, Mild (Pain Scale 1-3), fever or headache Atorvastatin Calcium (Atorvastatin Calcium 80 Mg Tablet) 80 mg PO BEDTIME BROWN Calcium Carbonate (Calcium Carbonate 750 Mg Tab.Chew) 750 mg PO Q4H PRN PRN Reason: Heartburn Carvedilol (Carvedilol 6.25 Mg Tablet) 6.25 mg PO BID [facility]; Protocol Last Admin: 03/13/24 08:45 Dose: 6.25 mg Documented By: MERRY Enoxaparin Sodium (Enoxaparin Sodium 30 Mg/0.3 Ml Syringe) 30 mg SUBCUT Q24H [facility] Last Admin: 03/12/24 20:50 Dose: 30 mg Documented By: ESPERANZA Glucose (Glucose Gel 15 Gm Gel..Gram.) 15 gm PO Q15M PRN; Protocol PRN Reason: per Hypoglycemia Standing Ord. Ceftriaxone Sodium 1 gm/ (Sodium Chloride) 50 mls @ 100 mls/hr IV Q24H [facility] Last Infusion: 03/12/24 21:19 Dose: Infused Documented By: ESPERANZA Lactated Ringer's (Lr) 1,000 mls @ 100 mls/hr IVCONT .Q10H [facility] Last Admin: 03/13/24 07:09 Dose: 100 mls/hr Documented By: MERRY Dextrose (D10) 250 mls @ 750 mls/hr IV Q15M PRN; Protocol PRN Reason: per Hypoglycemia Standing Ord. Insulin Human Lispro (Insulin Lispro 100 Unit/Ml 3 Ml Vial) 0 unit SUBCUT QIDACHS [facility]; Protocol Last Admin: 03/13/24 11:54 Dose: Not Given Documented By: ILYA Non-Admin Reason: No Insulin Coverage Lorazepam (Lorazepam 1 Mg Tablet) 1 mg PO BEDTIME PRN PRN Reason: anxiety Magnesium Hydroxide (Milk Of Magnesia 30 Ml Oral.Susp) 30 ml PO DAILY PRN PRN Reason: Constipation Melatonin (Melatonin 3 Mg Tablet) 6 mg PO BEDTIME PRN PRN Reason: Insomnia Ondansetron HCl (Ondansetron Hcl 4 Mg/2 Ml Vial) 4 mg IVPUSH Q8H PRN PRN Reason: Nausea and Vomiting Senna (Sennosides 8.6 Mg Tablet) 17.2 mg PO BEDTIME [facility] Sodium Chloride (0.9 % Sodium Chloride Flush 3 Ml Syringe) 3 ml IVFLUSH QSHIFT [facility] Last Admin: 03/13/24 08:02 Dose: Not Given Documented By: MERRY Non-Admin Reason: IV Running Trazodone HCl (Trazodone Hcl 25 Mg Halftab) 25 mg PO BEDTIME PRN PRN Reason: insomnia Labs 03/13/24 04:51 03/13/24 04:52 Labs: Laboratory Results - last 24 hr 03/12/24 03/12/24 03/12/24 17:18 17:35 19:20 MCV 92.9 MCH 32.0 MCHC 34.4 RDW 12.6 Plt Count 140 L MPV 10.1 Immature Gran % (Auto) 0.4 Neut % (Auto) 83.7 H Lymph % (Auto) 10.1 L [place] % (Auto) 3.2 Eos % (Auto) 2.1 Baso % (Auto) 0.5 Lymph # (Auto) 1.0 L [place] # (Auto) 0.3 Eos # (Auto) 0.2 Baso # (Auto) 0.1 Abs Immat Gran (auto) 0.04 H Absolute Neuts (auto) 8.5 H Absolute Nucleated RBC 0.000 Nucleated RBC % (auto) 0.0 PT 11.2 INR 0.9 Anion Gap 18 Estim Creat Clear Calc 19.6 Estimated GFR 25 POC Glucose Random Glucose 232 H Calcium 9.2 Magnesium 2.0 Total Bilirubin 0.6 AST 55 H ALT 77 H Alkaline Phosphatase 154 H Troponin I High Sens 6.3 Total Protein 7.1 Albumin 3.9 Lipase 22 Vitamin B12 493 Urine Color Yellow Urine Appearance Turbid Urine pH 5.5 Ur Specific [place] 1.020 Urine Protein 100 (2+) H Urine Glucose (UA) 500 H Urine Ketones Negative Urine Blood Small (1+) H Urine Nitrite Positive H Ur Leukocyte Esterase Moderate (2+) H Urine RBC 6-10 H Urine WBC >50 H Ur Squamous Epith Cells 0-2 Other Crystals Present Urine Bacteria 4+ Hyaline Casts 0-2 Ethyl Alcohol < 10 Influenza Type A (PCR) NEGATIVE Influenza Type B (PCR) NEGATIVE RSV RNA Qual (PCR) NEGATIVE SARS-CoV-2 RNA (RT-PCR) NEGATIVE 03/12/24 03/13/24 03/13/24 21:45 04:51 04:52 MCV 92.1 MCH 32.1 MCHC 34.9 RDW 12.6 Plt Count 123 L MPV 10.2 Immature Gran % (Auto) 0.2 Neut % (Auto) 83.0 H Lymph % (Auto) 10.1 L [place] % (Auto) 4.1 Eos % (Auto) 2.1 Baso % (Auto) 0.5 Lymph # (Auto) 1.0 L [place] # (Auto) 0.4 Eos # (Auto) 0.2 Baso # (Auto) 0.1 Abs Immat Gran (auto) 0.02 Absolute Neuts (auto) 8.0 Absolute Nucleated RBC 0.000 Nucleated RBC % (auto) 0.0 PT INR Anion Gap 12 Estim Creat Clear Calc 21.0 Estimated GFR 27 POC Glucose 237 H Random Glucose 272 H Calcium 8.5 D Magnesium Total Bilirubin AST ALT Alkaline Phosphatase Troponin I High Sens Total Protein Albumin Lipase Vitamin B12 Urine Color Urine Appearance Urine pH Ur Specific [place] Urine Protein Urine Glucose (UA) Urine Ketones Urine Blood Urine Nitrite Ur Leukocyte Esterase Urine RBC Urine WBC Ur Squamous Epith Cells Other Crystals Urine Bacteria Hyaline Casts Ethyl Alcohol Influenza Type A (PCR) Influenza Type B (PCR) RSV RNA Qual (PCR) SARS-CoV-2 RNA (RT-PCR) 03/13/24 03/13/24 07:01 11:39 MCV MCH MCHC RDW Plt Count MPV Immature Gran % (Auto) Neut % (Auto) Lymph % (Auto) [place] % (Auto) Eos % (Auto) Baso % (Auto) Lymph # (Auto) [place] # (Auto) Eos # (Auto) Baso # (Auto) Abs Immat Gran (auto) Absolute Neuts (auto) Absolute Nucleated RBC Nucleated RBC % (auto) PT INR Anion Gap Estim Creat Clear Calc Estimated GFR POC Glucose 253 H 89 Random Glucose Calcium Magnesium Total Bilirubin AST ALT Alkaline Phosphatase Troponin I High Sens Total Protein Albumin Lipase Vitamin B12 Urine Color Urine Appearance Urine pH Ur Specific [place] Urine Protein Urine Glucose (UA) Urine Ketones Urine Blood Urine Nitrite Ur Leukocyte Esterase Urine RBC Urine WBC Ur Squamous Epith Cells Other Crystals Urine Bacteria Hyaline Casts Ethyl Alcohol Influenza Type A (PCR) Influenza Type B (PCR) RSV RNA Qual (PCR) SARS-CoV-2 RNA (RT-PCR) Microbiology Microbiology Results: Microbiology 03/12/24 19:20 Urine Culture - Preliminary Urine clean catch - Clean Catch Midstream Gram negative yamile Assessment and Plan (1) Acute kidney injury: Status: Acute (2) Urinary tract infection: Status: Acute (3) Syncope and collapse: Status: Acute Plan 70-year-old female with history of [id number] type 2 diabetes, hypertension, history of CVA, CKD stage 3, history of complete heart block s/p pacemaker placement, diabetic polyneuropathy, mood disorder admitted for further management of acute syncopal episode and RENÉE related to dehydration with uti #Acute syncopal episode -likely related to dehydration and hypovolemia, normal orthostatic blood pressures, tachycardia with standing likely due to dehydration, but no lightheadedness or dizziness -Head ct negative for acute intracranial abnormality but shows chronic microangiopathy, volume loss, and chronic lacunar infarcts -no acute osseous abnormality on cervical spine CT, pelvis x-ray, hand x-ray -ekg shows AV dual paced rhythm with occ RVs. trop wnl -no arrhythmia on tele monitor , follow orthostatic BP , avoid hypotension #Acute UTI -UA with 3+ leuks, +nitrites, 3+ blood, +sediment, 4+ bacteria -urine culture growing Gram-negative yamile, continue IV ctx (initiated 8/18) -follow cultures # acute on chronic kidney disease stage 3b -likely prerenal in the setting of acute dehydration/hypovolemia and infection -slight improvement in creatinine 1.9 to 1.8 -continue IVF -avoid nephrotoxins -seen by Nephrology they recommend cautious IV fluids, antibiotics ,avoid hypotension # kzi-ijbzfyj-fetnvjwnn type 2 diabetes -stable blood sugars continue diabetic diet and insulin sliding scale. Not on home medications. # hypertension -continue carvedilol, and nifedipine # history of complete heart block s/p pacemaker placement -EKG shows AV dual paced rhythm with PVCs, no arrhythmia on tele monitor # CVA history/ HLD -Lipitor 80 mg DVT prophylaxis-renally adjusted Lovenox Full code Patient requires continued inpatient stay for management of acute syncopal episode and acute kidney injury related to dehydration and UTI requiring IV fluid resuscitation, IV antibiotics, close monitoring of hemodynamics Quality Stroke Does the patient have a stroke diagnosis?: No VTE Prior VTE?: No VTE Risk Level:: Medical - moderate - high VTE Device Contraindication: Treatment Not Indicated VTE Drug Contraindication: N/A - Med Ordered
[2024-03-13 16:07] LABS: Glucose, Whole Blood 127 mg/dL (60-115)
[2024-03-13] MEDS: NIFEdipine ER 30 MG TAB.ER.24 PO (16:07)
[2024-03-13] MEDS: 0.9 % Sodium Chloride Flush 3 ML SYRINGE IVFLUSH ×2 (16:08→20:50)
--- NOTE | 2024-03-13 16:18 | HO.WOUND ---
Wound Consult: Initial 78yr old?[place] [facility] [place] - See progress notes and H&P for detailed history.? Wound consult placed for Left arm and knee wound.? Patient agreeable to assessment and photo documentation.? Patient reports they are seondary to a fall prior to admission. Left Elbow, Hand and knee Etiology: ??Skin tears Wound Bed: various stages - dry wound beds Drainage / Odor: dried crusted to wound edge Edges: ? irregular Helene wound: ecchymosis - No Induration, Fluctuance or Warmth noted Pain: tender to touch Goals of Treatment: ? moist wound healing with xeroform and protect from trauma Recommendations: 1. Turn and Reposition every 2 hours and as needed for patient comfort.? Use pillows or wedges to support off loading positions. 2. Off Load all bony prominences with use of pillows and heel boots if needed.? Apply Preventative foams where needed. ? 3. Monitor for incontinence and moisture control, use barrier creams when needed for prevention and treatment. 4. Provide adequate and supplemental nutrition.? 5. Order low air loss mattress. 6. When applicable maintain blood glucose levels per Providers order. 7. Left hand, Elbow and Knee - Cleanse with normal saline, pat dry. ?Apply layer Xeroform secure with Abd pads, gauze wrap and tape. ?Do not apply tape to patients skin.? Avoid Adhesive application to skin - when necessary, apply skin prep prior.? Re-consult wound care Nurse for wound deterioration or wound changes.
[2024-03-13 20:43] LABS: Glucose, Whole Blood 147 mg/dL (60-115)
[2024-03-13] MEDS: Atorvastatin Calcium 80 MG TABLET PO (20:49)
[2024-03-13] MEDS: Enoxaparin Sodium 30 MG/0.3 ML SYRINGE SUBCUT (20:50)
[2024-03-13] MEDS: cefTRIAXone sodium 1 GM in 0.9 % Sodium Chloride 50 ML IV (20:50)
[2024-03-14] VITALS (11 sets, daily range): BP systolic 136–193; BP diastolic 59–84; PULSE 58–72; RESP 18; TEMP 36.4–37.2; O2SAT 96–99
[2024-03-14 07:27] LABS: Glucose, Whole Blood 123 mg/dL (60-115)
[2024-03-14] MEDS: carvediloL 6.25 MG TABLET PO ×2 (08:05→20:15)
[2024-03-14] MEDS: NIFEdipine ER 60 MG TAB.ER.24 PO (08:06)
[2024-03-14 09:03] LABS: Anion Gap 14 (12-20); Blood Urea Nitrogen 30 mg/dL (9-16); Calcium 8.5 mg/dL (8.4-10.2); Carbon Dioxide 17 mmol/L (22-29); Chloride 110 mmol/L (96-108); Creatinine Clr Calc Pharmacy 23.4; Estimated Glomerular Filt Rate 30; Glucose Random 189 mg/dL (60-115); Potassium 4.4 mmol/L (3.3-5.1); Sodium 137 mmol/L (135-145)
[2024-03-14 11:04] LABS: Glucose, Whole Blood 188 mg/dL (60-115)
[2024-03-14] MEDS: Insulin Lispro 100 UNIT/ML 3 ML VIAL SUBCUT ×2 (11:28→15:59)
--- NOTE | 2024-03-14 11:57 | PC.NURSE ---
Addendum entered by Shaun Gomez RN 03/15/24 11:57: md informed of pt's bp Original Note: informed md of pt's bp
--- NOTE | 2024-03-14 14:34 | HO.PM.IMPN ---
Subjective Subjective Date of Service: 03/14/24 Interval History: Admitted for syncope Feeling better this morning, denies lightheadedness, no dizziness, no weakness, no urinary symptoms, no nausea, no vomiting had a large bowel movement this morning, no fevers, no chills. Review of Systems All other systems are reviewed and are negative. Physical Exam Vital Signs: Vital Signs: Last Vital Signs Temp 97.9 F 03/14/24 11:19 Pulse 67 03/14/24 13:51 Resp 18 03/14/24 11:19 BP 141/67 H 03/14/24 13:51 Pulse Ox 99 03/14/24 11:19 O2 Del Method Room Air 03/14/24 11:19 BMI result Body Mass Index 21.6 Const: Other: General resting comfortably in no acute distress. Anicteric sclera Neck no JVD. CVS regular rate rhythm, Respiratory lungs clear to auscultation, no respiratory distress, no wheeze, no rhonchi. Gastrointestinal abdomen soft, non tender, bowel sounds audible Left forearm ecchymotic lesions and superficial abrasions, full range of motion left elbow Extremities no LE edema. Neuro non focal , speech clear. Objective Data Active Medications Acetaminophen (Acetaminophen 325 Mg Tablet) 650 mg PO Q6H PRN PRN Reason: Pain, Mild (Pain Scale 1-3), fever or headache Atorvastatin Calcium (Atorvastatin Calcium 80 Mg Tablet) 80 mg PO BEDTIME [facility] Last Admin: 03/13/24 20:49 Dose: 80 mg Documented By: CECILIA Calcium Carbonate (Calcium Carbonate 750 Mg Tab.Chew) 750 mg PO Q4H PRN PRN Reason: Heartburn Carvedilol (Carvedilol 6.25 Mg Tablet) 6.25 mg PO BID [facility]; Protocol Last Admin: 03/14/24 08:05 Dose: 6.25 mg Documented By: LIZZETH Enoxaparin Sodium (Enoxaparin Sodium 30 Mg/0.3 Ml Syringe) 30 mg SUBCUT Q24H [facility] Last Admin: 03/13/24 20:50 Dose: 30 mg Documented By: CECILIA Glucose (Glucose Gel 15 Gm Gel..Gram.) 15 gm PO Q15M PRN; Protocol PRN Reason: per Hypoglycemia Standing Ord. Ceftriaxone Sodium 1 gm/ (Sodium Chloride) 50 mls @ 100 mls/hr IV Q24H [facility] Last Infusion: 03/13/24 21:58 Dose: Infused Documented By: CECILIA Dextrose (D10) 250 mls @ 750 mls/hr IV Q15M PRN; Protocol PRN Reason: per Hypoglycemia Standing Ord. Insulin Human Lispro (Insulin Lispro 100 Unit/Ml 3 Ml Vial) 0 unit SUBCUT QIDACHS [facility]; Protocol Last Admin: 03/14/24 11:28 Dose: 2 unit Documented By: LIZZETH Lorazepam (Lorazepam 1 Mg Tablet) 1 mg PO BEDTIME PRN PRN Reason: anxiety Magnesium Hydroxide (Milk Of Magnesia 30 Ml Oral.Susp) 30 ml PO DAILY PRN PRN Reason: Constipation Melatonin (Melatonin 3 Mg Tablet) 6 mg PO BEDTIME PRN PRN Reason: Insomnia Nifedipine (Nifedipine Er 60 Mg Tab.Er.24) 60 mg PO DAILY [facility]; Protocol Last Admin: 03/14/24 08:06 Dose: 60 mg Documented By: LIZZETH Ondansetron HCl (Ondansetron Hcl 4 Mg/2 Ml Vial) 4 mg IVPUSH Q8H PRN PRN Reason: Nausea and Vomiting Senna (Sennosides 8.6 Mg Tablet) 17.2 mg PO BEDTIME [facility] Last Admin: 03/13/24 20:57 Dose: Not Given Documented By: CECILIA Non-Admin Reason: Patient Refused Sodium Chloride (0.9 % Sodium Chloride Flush 3 Ml Syringe) 3 ml IVFLUSH QSHIFT [facility] Last Admin: 03/14/24 11:49 Dose: Not Given Documented By: LIZZETH Non-Admin Reason: Previously Administered Trazodone HCl (Trazodone Hcl 25 Mg Halftab) 25 mg PO BEDTIME PRN PRN Reason: insomnia Labs 03/13/24 04:51 03/14/24 08:42 Labs: Laboratory Results - last 24 hr 03/13/24 03/13/24 03/14/24 15:58 20:39 07:10 Anion Gap Estim Creat Clear Calc Estimated GFR POC Glucose 127 H 147 H 123 H Random Glucose Calcium 03/14/24 03/14/24 08:42 10:52 Anion Gap 14 Estim Creat Clear Calc 23.4 Estimated GFR 30 POC Glucose 188 H Random Glucose 189 H Calcium 8.5 Microbiology Microbiology Results: Microbiology 03/12/24 19:20 Urine Culture - Final Urine clean catch - Clean Catch Midstream Escherichia coli Assessment and Plan (1) Acute kidney injury: Status: Acute (2) Urinary tract infection: Status: Acute (3) Syncope and collapse: Status: Acute Plan 70-year-old female with history of [id number] type 2 diabetes, hypertension, history of CVA, CKD stage 3, history of complete heart block s/p pacemaker placement, diabetic polyneuropathy, mood disorder admitted for further management of acute syncopal episode and RENÉE related to dehydration with uti #Acute syncopal episode -likely related to dehydration and hypovolemia, orthostatic blood pressures -Head ct negative for acute intracranial abnormality but shows chronic microangiopathy, volume loss, and chronic lacunar infarcts -no acute osseous abnormality on cervical spine CT, pelvis x-ray, hand x-ray -ekg shows AV dual paced rhythm with occ RVs. trop wnl -no arrhythmia on tele monitor , follow orthostatic BP , avoid hypotension -decrease dose of nifedipine to 30 mg and add losartan, add ellie stockings,ivf -PT recommend short-term rehab due to persistent dizziness/orthostatic BP #Acute UTI -urine culture grew E coli sensitive to ceftriaxone, continue IV ctx (initiated 03/12) # acute on chronic kidney disease stage 3b -likely prerenal in the setting of acute dehydration/hypovolemia and infection -slight improvement in creatinine 1.9 to 1.6 -avoid nephrotoxins/ivf -outpatient Nephrology follow-up # zyw-[id number]-[id number] type 2 diabetes -stable blood sugars continue diabetic diet and insulin sliding scale. Not on home medications. # hypertension -continue carvedilol, and nifedipine dose adjusted, add losartan # history of complete heart block s/p pacemaker placement -EKG shows AV dual paced rhythm with PVCs, no arrhythmia on tele monitor # CVA history/ HLD -Lipitor 80 mg DVT prophylaxis-renally adjusted Lovenox Full code Patient requires continued inpatient stay for management of acute syncopal episode and acute kidney injury related to dehydration and UTI requiring IV antibiotics, close monitoring of hemodynamics Quality Stroke Does the patient have a stroke diagnosis?: No VTE Prior VTE?: No VTE Risk Level:: Medical - moderate - high VTE Device Contraindication: Treatment Not Indicated VTE Drug Contraindication: N/A - Med Ordered
[2024-03-14 15:41] LABS: Glucose, Whole Blood 172 mg/dL (60-115)
[2024-03-14] MEDS: 0.9 % Sodium Chloride 1,000 ML 100 ML IVCONT (15:59)
[2024-03-14] MEDS: Enoxaparin Sodium 30 MG/0.3 ML SYRINGE SUBCUT (20:02)
[2024-03-14] MEDS: cefTRIAXone sodium 1 GM in 0.9 % Sodium Chloride 50 ML IV (20:03)
[2024-03-14] MEDS: Atorvastatin Calcium 80 MG TABLET PO (20:15)
[2024-03-14 20:42] LABS: Glucose, Whole Blood 126 mg/dL (60-115)
[2024-03-15] VITALS (9 sets, daily range): BP systolic 117–187; BP diastolic 58–79; PULSE 60–67; RESP 16–18; TEMP 36.2–36.7; O2SAT 95–99
[2024-03-15 06:53] LABS: Anion Gap 12 (12-20); Blood Urea Nitrogen 32 mg/dL (9-16); Calcium 8.6 mg/dL (8.4-10.2); Carbon Dioxide 19 mmol/L (22-29); Chloride 111 mmol/L (96-108); Cholesterol 101 mg/dL (<200); Creatinine Clr Calc Pharmacy 20.6; Estimated Glomerular Filt Rate 26; Glucose Random 132 mg/dL (60-115); HDL Cholesterol 46 mg/dL (>40); LDL Cholesterol Calculated 44 mg/dL (<100); Potassium 3.9 mmol/L (3.3-5.1); Sodium 138 mmol/L (135-145); Triglycerides 55 mg/dL (<150)
[2024-03-15 07:58] LABS: Glucose, Whole Blood 134 mg/dL (60-115)
[2024-03-15] MEDS: carvediloL 6.25 MG TABLET PO ×2 (08:51→21:59)
[2024-03-15] MEDS: NIFEdipine ER 30 MG TAB.ER.24 PO (08:51)
--- NOTE | 2024-03-15 10:10 | MHC.CM.PN ---
Per ROUNDS discussion, Patient is declining PT'S recommendation for STR. MD will re-assess BP and CM will continue to follow.
[2024-03-15 11:12] LABS: Glucose, Whole Blood 168 mg/dL (60-115)
[2024-03-15] MEDS: Insulin Lispro 100 UNIT/ML 3 ML VIAL SUBCUT ×2 (11:22→22:00)
[2024-03-15] MEDS: lisinopriL 10 MG TABLET PO (14:03)
[2024-03-15] MEDS: 0.9 % Sodium Chloride 1,000 ML 100 ML IVCONT (14:03)
[2024-03-15 16:35] LABS: Glucose, Whole Blood 116 mg/dL (60-115)
--- NOTE | 2024-03-15 16:57 | HO.PM.IMPN ---
Subjective Subjective Date of Service: 03/16/24 Interval History: Being followed for syncope/RENÉE and UTI Poor historian denies symptoms of dizziness, but noted to be dizzy with standing, admits to living at home with in a two-story house, no acute events overnight, noted to have significant drop in blood pressure with standing with no change in pulse, denies nausea vomiting, no diarrhea, no urinary symptoms of urgency. Review of Systems All other system reviewed and are negative. Physical Exam Vital Signs: Vital Signs: Last Vital Signs Temp 97.9 F 03/15/24 16:00 Pulse 60 03/15/24 16:00 Resp 18 03/15/24 16:00 BP 161/79 H 03/15/24 16:00 Pulse Ox 98 03/15/24 16:00 O2 Del Method Room Air 03/15/24 16:00 BMI result Body Mass Index 21.6 Const: Other: General resting comfortably in no acute distress. Anicteric sclera Neck no JVD. CVS regular rate rhythm, Respiratory lungs clear to auscultation, no respiratory distress, no wheeze, no rhonchi. Gastrointestinal abdomen soft, non tender, bowel sounds audible Left forearm ecchymotic lesions and superficial abrasions, full range of motion left elbow Extremities no LE edema. Neuro non focal , speech clear. Objective Data Active Medications Acetaminophen (Acetaminophen 325 Mg Tablet) 650 mg PO Q6H PRN PRN Reason: Pain, Mild (Pain Scale 1-3), fever or headache Atorvastatin Calcium (Atorvastatin Calcium 80 Mg Tablet) 80 mg PO BEDTIME [facility] Last Admin: 03/14/24 20:15 Dose: 80 mg Documented By: MONICA Calcium Carbonate (Calcium Carbonate 750 Mg Tab.Chew) 750 mg PO Q4H PRN PRN Reason: Heartburn Carvedilol (Carvedilol 6.25 Mg Tablet) 6.25 mg PO BID [facility]; Protocol Last Admin: 03/15/24 08:51 Dose: 6.25 mg Documented By: LIZZETH Enoxaparin Sodium (Enoxaparin Sodium 30 Mg/0.3 Ml Syringe) 30 mg SUBCUT Q24H [facility] Last Admin: 03/14/24 20:02 Dose: 30 mg Documented By: MONICA Glucose (Glucose Gel 15 Gm Gel..Gram.) 15 gm PO Q15M PRN; Protocol PRN Reason: per Hypoglycemia Standing Ord. Ceftriaxone Sodium 1 gm/ (Sodium Chloride) 50 mls @ 100 mls/hr IV Q24H [facility] Last Infusion: 03/14/24 20:33 Dose: Infused Documented By: MONICA Dextrose (D10) 250 mls @ 750 mls/hr IV Q15M PRN; Protocol PRN Reason: per Hypoglycemia Standing Ord. Sodium Chloride (Ns) 1,000 mls @ 100 mls/hr IVCONT .Q10H [facility] Stop: 03/15/24 22:29 Last Admin: 03/15/24 14:03 Dose: 100 mls/hr Documented By: LIZZETH Insulin Human Lispro (Insulin Lispro 100 Unit/Ml 3 Ml Vial) 0 unit SUBCUT QIDACHS [facility]; Protocol Last Admin: 03/15/24 16:40 Dose: Not Given Documented By: LIZZETH Non-Admin Reason: poc oor Lorazepam (Lorazepam 1 Mg Tablet) 1 mg PO BEDTIME PRN PRN Reason: anxiety Magnesium Hydroxide (Milk Of Magnesia 30 Ml Oral.Susp) 30 ml PO DAILY PRN PRN Reason: Constipation Melatonin (Melatonin 3 Mg Tablet) 6 mg PO BEDTIME PRN PRN Reason: Insomnia Nifedipine (Nifedipine Er 30 Mg Tab.Er.24) 30 mg PO DAILY [facility]; Protocol Last Admin: 03/15/24 08:51 Dose: 30 mg Documented By: LIZZETH Ondansetron HCl (Ondansetron Hcl 4 Mg/2 Ml Vial) 4 mg IVPUSH Q8H PRN PRN Reason: Nausea and Vomiting Senna (Sennosides 8.6 Mg Tablet) 17.2 mg PO BEDTIME [facility] Last Admin: 03/14/24 20:24 Dose: Not Given Documented By: MONICA Non-Admin Reason: Patient Refused Sodium Chloride (0.9 % Sodium Chloride Flush 3 Ml Syringe) 3 ml IVFLUSH QSHIFT [facility] Last Admin: 03/15/24 13:59 Dose: Not Given Documented By: LIZZETH Non-Admin Reason: Previously Administered Trazodone HCl (Trazodone Hcl 25 Mg Halftab) 25 mg PO BEDTIME PRN PRN Reason: insomnia Labs 03/13/24 04:51 03/16/24 08:14 Labs: Laboratory Results - last 24 hr 03/14/24 03/15/24 03/15/24 20:38 06:26 07:32 Anion Gap 12 Estim Creat Clear Calc 20.6 Estimated GFR 26 POC Glucose 126 H 134 H Random Glucose 132 H Calcium 8.6 Triglycerides 55 Cholesterol 101 LDL Cholesterol, Calc 44 HDL Cholesterol 46 03/15/24 03/15/24 11:00 16:25 Anion Gap Estim Creat Clear Calc Estimated GFR POC Glucose 168 H 116 H Random Glucose Calcium Triglycerides Cholesterol LDL Cholesterol, Calc HDL Cholesterol Assessment and Plan (1) Acute kidney injury: Status: Acute (2) Urinary tract infection: Status: Acute (3) Syncope and collapse: Status: Acute Plan 70-year-old female with history of sis-cxyhnzx-[id number] type 2 diabetes, hypertension, history of CVA, CKD stage 3, history of complete heart block s/p pacemaker placement, diabetic polyneuropathy, mood disorder admitted for further management of acute syncopal episode and RENÉE related to dehydration with uti #Acute syncopal episode -likely related to dehydration and hypovolemia, orthostatic blood pressures shows drop in blood pressure, no change in pulse likely autonomic dysfunction -Head ct negative for acute intracranial abnormality but shows chronic microangiopathy, volume loss, and chronic lacunar infarcts -no acute osseous abnormality on cervical spine CT, pelvis x-ray, hand x-ray -ekg shows AV dual paced rhythm , trop wnl -no arrhythmia on tele monitor , follow orthostatic BP , avoid hypotension -decrease dose of nifedipine to 30 mg and add lisinopril, ellie stockings,ivf -patient declined to participate with physical therapy, PT recommend short-term rehab, due to persistent dizziness/orthostatic BP -seems to have cognitive impairments will talk to family. #Acute UTI -urine culture grew E coli sensitive to ceftriaxone, continue IV ctx (initiated 03/12) # acute on chronic kidney disease stage 3b -likely prerenal in the setting of acute dehydration/hypovolemia and infection -slight improvement in creatinine 1.9 to 1.6 -avoid nephrotoxins/ivf -outpatient Nephrology follow-up # wpx-dbeosmy-inxyoftte type 2 diabetes -stable blood sugars continue diabetic diet and insulin sliding scale. Not on home medications. # hypertension -continue carvedilol, and nifedipine dose adjusted, add lisinopril # history of complete heart block s/p pacemaker placement -EKG shows AV dual paced rhythm with PVCs, no arrhythmia on tele monitor # CVA history/ HLD -Lipitor 80 mg DVT prophylaxis-renally adjusted Lovenox Full code Patient requires continued inpatient stay for management of acute syncopal episode and acute kidney injury related to dehydration and UTI requiring IV antibiotics, close monitoring of hemodynamics. Quality Stroke Does the patient have a stroke diagnosis?: No VTE Prior VTE?: No VTE Risk Level:: Medical - moderate - high VTE Device Contraindication: Treatment Not Indicated VTE Drug Contraindication: N/A - Med Ordered
--- NOTE | 2024-03-15 17:44 | HO.WOUND ---
Wound Consult: Initial 78yr old?female admitted to [facility] on 03/12/24 - See progress notes and H&P for detailed history.? Wound consult placed for Buttock / sacral wound.? Patient agreeable to assessment and photo documentation.? Patient reports they are seondary to a fall prior to admission. Sacrum and Buttock Etiology: ??MASD-IAD (Moisture Associated Skin Damage - Incontinence Associated Dermatitis) Wound Bed: red light purple blanchable tissue - no open tissue noted at this time - moist tissue noted Drainage / Odor: none Edges: ?irregular Helene wound: Moist - red pink blanchable intact tissue - No Induration, Fluctuance or Warmth noted Pain: denies Goals of Treatment: ? Triad to protect from moisture and friction Recommendations: 1. Turn and Reposition every 2 hours and as needed for patient comfort.? Use pillows or wedges to support off loading positions. 2. Off Load all bony prominences with use of pillows and heel boots if needed.? Apply Preventative foams where needed. ? 3. Monitor for incontinence and moisture control, use barrier creams when needed for prevention and treatment. 4. Provide adequate and supplemental nutrition.? 5. Order low air loss mattress. 6. When applicable maintain blood glucose levels per Providers order. 7. Left hand, Elbow and Knee - Cleanse with normal saline, pat dry. ?Apply layer Xeroform secure with Abd pads, gauze wrap and tape. ?Do not apply tape to patients skin.? Avoid Adhesive application to skin - when necessary, apply skin prep prior.? 8. Sacrum and Buttock - Off Load Pressure - Cleanse with PH balance spray or wipes, pat dry. ?Apply thin layer of Triad to wound bed - only pat and dab no scrub and rub when soiling occurs. Reapply thin layer PRN after each episode of incontinence. Re-consult wound care Nurse for wound deterioration or wound changes.
[2024-03-15 20:44] LABS: Glucose, Whole Blood 195 mg/dL (60-115)
[2024-03-15] MEDS: cefTRIAXone sodium 1 GM in 0.9 % Sodium Chloride 50 ML IV (21:58)
[2024-03-15] MEDS: Enoxaparin Sodium 30 MG/0.3 ML SYRINGE SUBCUT (21:59)
[2024-03-15] MEDS: Atorvastatin Calcium 80 MG TABLET PO (22:00)
[2024-03-15] MEDS: Sennosides 8.6 MG TABLET 17.2 MG PO (22:00)
[2024-03-15] MEDS: 0.9 % Sodium Chloride Flush 3 ML SYRINGE IVFLUSH (22:01)
[2024-03-15] MEDS: ondansetron HCL 4 MG/2 ML VIAL IVPUSH (22:32)
[2024-03-16] VITALS (11 sets, daily range): BP systolic 140–180; BP diastolic 70–90; PULSE 57–70; RESP 17–20; TEMP 36.1–36.6; O2SAT 96–99
[2024-03-16 08:16] LABS: Glucose, Whole Blood 96 mg/dL (60-115)
[2024-03-16] MEDS: 0.9 % Sodium Chloride Flush 3 ML SYRINGE IVFLUSH ×2 (08:47→21:51)
[2024-03-16] MEDS: NIFEdipine ER 30 MG TAB.ER.24 PO (08:47)
[2024-03-16 09:08] LABS: Anion Gap 10 (12-20); Blood Urea Nitrogen 25 mg/dL (9-16); Calcium 8.3 mg/dL (8.4-10.2); Carbon Dioxide 20 mmol/L (22-29); Chloride 113 mmol/L (96-108); Creatinine Clr Calc Pharmacy 26.8; Estimated Glomerular Filt Rate 35; Glucose Random 92 mg/dL (60-115); Potassium 4.3 mmol/L (3.3-5.1); Sodium 139 mmol/L (135-145)
[2024-03-16] MEDS: carvediloL 6.25 MG TABLET PO ×2 (12:12→21:49)
[2024-03-16 12:32] LABS: Glucose, Whole Blood 132 mg/dL (60-115)
--- NOTE | 2024-03-16 13:47 | MHC.CM.PN ---
Per 's request, KARIN attempted to locate a phone number for Daughter/Pia By calling [phone]; KARIN was given the # [phone]. KARIN called this # but no one answered and the vm is not set up. has been made aware.
--- NOTE | 2024-03-16 13:54 | MHC.CM.PN ---
CM attempted to reach Daughter/HCP/Pia at # listed on HCP ([phone])and CM was able to leave a message stating that & KARIN would like to speak with her.KARIN awaits a return call from Pia. is aware.
--- NOTE | 2024-03-16 14:06 | MHC.CM.PN ---
PT is recommending STR; Patient is refusing so no SNF referrals have been made at this time. CM will follow.
--- NOTE | 2024-03-16 14:31 | P.PNNP_ITS ---
Subjective Subjective Date of Service: 03/16/24 Interval history: Being followed for syncope/RENÉE and UTI pt seen and examined Physical Exam 2 Vital Signs: Vital Signs: Last Vital Signs Temp 97.8 F 03/16/24 11:28 Pulse 60 03/16/24 11:28 Resp 17 03/16/24 11:28 BP 180/90 H 03/16/24 11:28 Pulse Ox 99 03/16/24 11:28 O2 Del Method Room Air 03/16/24 11:28 BMI result Body Mass Index 21.6 cvs: s1s2 Rs; cta Abd: soft Objective Data Labs 03/13/24 04:51 03/16/24 08:14 Labs: Laboratory Results - last 24 hr 03/15/24 03/15/24 03/16/24 16:25 20:38 08:03 Hold Purple Top Sodium Potassium Chloride Carbon Dioxide Anion Gap BUN Creatinine Estim Creat Clear Calc Estimated GFR POC Glucose 116 H 195 H 96 Random Glucose Calcium 03/16/24 03/16/24 08:14 12:25 Hold Purple Top SEE NOTE Sodium 139 Potassium 4.3 Chloride 113 H Carbon Dioxide 20 L Anion Gap 10 L BUN 25 H Creatinine 1.43 H Estim Creat Clear Calc 26.8 Estimated GFR 35 POC Glucose 132 H Random Glucose 92 Calcium 8.3 L Microbiology Microbiology Results: Microbiology 03/12/24 19:20 Urine clean catch - Clean Catch Midstream Urine Culture - Final Escherichia coli Procedures Date of Service Date of Service: 03/16/24 Assessment & Plan Assessment and plan (1) Acute kidney injury: Status: Acute (2) HTN (hypertension): Status: Acute Plan 70-year-old female with history of xup-[id number]-[id number] type 2 diabetes, hypertension, history of CVA, CKD stage 3, history of complete heart block s/p pacemaker placement, diabetic polyneuropathy, mood disorder admitted for further management of acute syncopal episode and RENÉE related to dehydration with uti 1. RENÉE: SCr 1.5-2.0; c/w DN/HTN renal dis; improvement with IVF 2. CKD 3b: DN/HTN renal dis. BL cr ~ 1.4 3. Syncope: car w/u for arrythmia 4. MBD of CKD: track PTH/vit D 5. ANmeia: not active issue 6. Labile HTN: track BPs and avoid too low BP.. donot think orthjostatic as all sbp > 140 ok to start low dose lisinopril as renée resolved 7. UTI: on ABx Time Spent With Patient Time: Total time managing care of this patient today ____ minutes. Progress Note: Quality Stroke Does the patient have a stroke diagnosis?: No
[2024-03-16] MEDS: cefuroxime axetiL 250 MG TABLET PO (16:02)
--- NOTE | 2024-03-16 16:13 | MHC.CM.PN ---
Per CM [employer], Pia /Daughter returned CM call; has provided MD with the correct # ([phone]).
--- NOTE | 2024-03-16 16:44 | P.CNPS_ITS ---
History of Present Illness Date of Service: 03/16/24 Chief Complaint: syncope, renée, uti Reason for Consult: competency Requesting physician: Louie Foster Discussed with referring provider: Yes Sources of Information: patient interviewed and chart reviewed HPI Narrative: Patient is a 70-year-old female with history of fpf-jzkyfga-psabaxyeq type 2 diabetes, hypertension, history of CVA, CKD stage 3, history of complete heart block s/p pacemaker placement, diabetic polyneuropathy, mood disorder admitted for further management of acute syncopal episode and RENÉE related to dehydration with uti Psychiatric consult placed for: capacity to make medical decisions During assessment, patient alert and oriented to person, place and situation. Calm and cooperative. Patient was able to articulate reason for hospital admission. Patient was able to express the need to be hospitalized at this time and is aware of her current treatment. Patient understands proposed treatment of referring to short-term rehab, however, patient reports she does not want to go and would like to return home. She did state that she would go if it was absolutely necessary . Patient reports that she lives with her and has 2 adult daughters who are available whenever she needs them . denies any psychiatric history; denies substance use. Past Psychiatric History: Denies Medical Evaluation Reviewed: Yes [facility] Medical History Elevated liver enzymes CKD (chronic kidney disease) stage 3, GFR 30-59 ml/min Complete heart block CVA (cerebral vascular accident) Anxiety Colonoscopy refused Mammogram declined Noncompliance CAD (coronary artery disease) Bradycardia, sinus Fall HTN (hypertension) Diabetic neuropathy, type II diabetes mellitus Hypertension Surgical History Aortocoronary bypass status Social History: Lives with in [place]. Has 2 adult daughters. Substance History: Denies Diagnostics Vital Signs (24Hr): Vital Signs - 24 hr 03/15/24 20:00 03/15/24 21:51 03/16/24 00:00 Temperature 98.0 F 98.1 F 97.6 F Pulse Rate 66 63 61 Respiratory Rate 16 16 20 Blood Pressure 169/58 H 166/70 H 160/82 H Pulse Oximetry 98 95 96 Oxygen Delivery Method Room Air Room Air Room Air 03/16/24 03:52 03/16/24 07:40 03/16/24 08:47 Temperature 97.0 F 97.5 F Pulse Rate 60 63 Respiratory Rate 20 17 Blood Pressure 150/74 H 180/90 H 160/80 H Pulse Oximetry 97 98 Oxygen Delivery Method Room Air Room Air 03/16/24 11:28 03/16/24 15:31 03/16/24 15:32 Temperature 97.8 F Pulse Rate 60 57 64 Respiratory Rate 17 Blood Pressure 180/90 H 160/70 H 150/70 H Pulse Oximetry 99 Oxygen Delivery Method Room Air 03/16/24 15:33 Temperature Pulse Rate 65 Respiratory Rate Blood Pressure 140/70 H Pulse Oximetry Oxygen Delivery Method BMI result Body Mass Index 21.6 Labs 03/13/24 04:51 03/16/24 08:14 Labs: Laboratory Results - last 48 hr 03/14/24 03/15/24 03/15/24 20:38 06:26 07:32 Hold Purple Top Sodium 138 Potassium 3.9 Chloride 111 H Carbon Dioxide 19 L Anion Gap 12 BUN 32 H Creatinine 1.86 H Estim Creat Clear Calc 20.6 Estimated GFR 26 POC Glucose 126 H 134 H Random Glucose 132 H Calcium 8.6 Triglycerides 55 Cholesterol 101 LDL Cholesterol, Calc 44 HDL Cholesterol 46 03/15/24 03/15/24 03/15/24 11:00 16:25 20:38 Hold Purple Top Sodium Potassium Chloride Carbon Dioxide Anion Gap BUN Creatinine Estim Creat Clear Calc Estimated GFR POC Glucose 168 H 116 H 195 H Random Glucose Calcium Triglycerides Cholesterol LDL Cholesterol, Calc HDL Cholesterol 03/16/24 03/16/24 03/16/24 08:03 08:14 12:25 Hold Purple Top SEE NOTE Sodium 139 Potassium 4.3 Chloride 113 H Carbon Dioxide 20 L Anion Gap 10 L BUN 25 H Creatinine 1.43 H Estim Creat Clear Calc 26.8 Estimated GFR 35 POC Glucose 96 132 H Random Glucose 92 Calcium 8.3 L Triglycerides Cholesterol LDL Cholesterol, Calc HDL Cholesterol Imaging Radiology Impressions: ITS Impressions Cervical Spine CT 03/12/24 17:01 IMPRESSION: Evaluation is slightly limited due to motion artifact. CT head: No acute intracranial finding. Diffuse volume loss with moderate chronic microangiopathy, remote lacunar infarcts and left PICA vascular territory encephalomalacia. CT cervical spine: No acute fracture involving the cervical spine. Multilevel cervical spondylosis as detailed. Approximately 2.7 cm hypodense right thyroid lobe nodule, slightly increased from prior exam. Further evaluation with dedicated thyroid ultrasound is recommended if not already performed. Head CT 03/12/24 17:01 IMPRESSION: Evaluation is slightly limited due to motion artifact. CT head: No acute intracranial finding. Diffuse volume loss with moderate chronic microangiopathy, remote lacunar infarcts and left PICA vascular territory encephalomalacia. CT cervical spine: No acute fracture involving the cervical spine. Multilevel cervical spondylosis as detailed. Approximately 2.7 cm hypodense right thyroid lobe nodule, slightly increased from prior exam. Further evaluation with dedicated thyroid ultrasound is recommended if not already performed. Chest X-Ray 03/12/24 17:04 IMPRESSION: No acute cardiopulmonary process detected. Hand X-Ray 03/12/24 17:04 IMPRESSION: No acute fracture or dislocation. Possible arthropathy. Pelvis X-Ray 03/12/24 17:04 IMPRESSION: No acute fracture. Mental Status Exam Mental Status Exam Patient Appearance: Appropriate Patient Orientation: Person, Place and Situation Level of Consciousness: Awake, Appropriate and Alert Patient Behavior: Guarded and Cooperative Mood Description: Calm Affect Description: Calm Ability to Follow Directions: Good Speech Pattern: Clear Thought Process: Intact Thought Content: positive for Linear Judgement: Fair Medications Medications Current Medications Acetaminophen (Acetaminophen 325 Mg Tablet) 650 mg PO Q6H PRN PRN Reason: Pain, Mild (Pain Scale 1-3), fever or headache Calcium Carbonate (Calcium Carbonate 750 Mg Tab.Chew) 750 mg PO Q4H PRN PRN Reason: Heartburn Carvedilol (Carvedilol 6.25 Mg Tablet) 6.25 mg PO BID [facility]; Protocol Last Admin: 03/16/24 12:12 Dose: 6.25 mg Cefuroxime Axetil (Cefuroxime Axetil 250 Mg Tablet) 250 mg PO Q12H [facility] Last Admin: 03/16/24 16:02 Dose: 250 mg Enoxaparin Sodium (Enoxaparin Sodium 30 Mg/0.3 Ml Syringe) 30 mg SUBCUT Q24H [facility] Last Admin: 03/15/24 21:59 Dose: 30 mg Glucose (Glucose Gel 15 Gm Gel..Gram.) 15 gm PO Q15M PRN; Protocol PRN Reason: per Hypoglycemia Standing Ord. Dextrose (D10) 250 mls @ 750 mls/hr IV Q15M PRN; Protocol PRN Reason: per Hypoglycemia Standing Ord. Insulin Human Lispro (Insulin Lispro 100 Unit/Ml 3 Ml Vial) 0 unit SUBCUT QIDACHS [facility]; Protocol Last Admin: 03/16/24 13:08 Dose: Not Given Lorazepam (Lorazepam 1 Mg Tablet) 1 mg PO BEDTIME PRN PRN Reason: anxiety Magnesium Hydroxide (Milk Of Magnesia 30 Ml Oral.Susp) 30 ml PO DAILY PRN PRN Reason: Constipation Melatonin (Melatonin 3 Mg Tablet) 6 mg PO BEDTIME PRN PRN Reason: Insomnia Nifedipine (Nifedipine Er 30 Mg Tab.Er.24) 30 mg PO DAILY [facility]; Protocol Last Admin: 03/16/24 08:47 Dose: 30 mg Ondansetron HCl (Ondansetron Hcl 4 Mg/2 Ml Vial) 4 mg IVPUSH Q8H PRN PRN Reason: Nausea and Vomiting Last Admin: 03/15/24 22:32 Dose: 4 mg Senna (Sennosides 8.6 Mg Tablet) 17.2 mg PO BEDTIME [facility] Last Admin: 03/15/24 22:00 Dose: 17.2 mg Sodium Chloride (0.9 % Sodium Chloride Flush 3 Ml Syringe) 3 ml IVFLUSH QSHIFT [facility] Last Admin: 03/16/24 08:47 Dose: 3 ml Trazodone HCl (Trazodone Hcl 25 Mg Halftab) 25 mg PO BEDTIME PRN PRN Reason: insomnia Allergies Allergies Allergy/AdvReac Type Severity Reaction Status Date / Time No Known Allergies Allergy Verified 03/12/24 16:30 Assessment & Plan Assessment & Plan (1) Encounter for competency evaluation: Status: Acute Code(s): Z01.89 - Encounter for other specified special examinations Plan Psychiatric consult placed for: capacity to make medical decisions During assessment, patient alert and oriented to person, place and situation. Calm and cooperative. Patient was able to articulate reason for hospital admission. Patient was able to express the need to be hospitalized at this time and is aware of her current treatment. Patient understands proposed treatment of referring to short-term rehab, however, patient reports she does not want to go and would like to return home. She did state that she would go if it was absolutely necessary . Patient was able to have logical conversation. Patient reports that she lives with her and has 2 adult daughters who are available whenever she needs them . denies any psychiatric history; denies substance use. Recommendations: Patient appears to have capacity at this time. Collateral information should be obtained from daughter's. If some of this information provided by patient appears to be untrue, will have to re-evaluate. Total time managing care of this patient today _30___ minutes. Patient educated on: diagnosis and medical condition
[2024-03-16 16:58] LABS: Glucose, Whole Blood 117 mg/dL (60-115)
--- NOTE | 2024-03-16 17:10 | P.PNIM_ITS ---
Subjective Subjective Date of Service: 03/17/24 Interval History: Being followed for syncope, RENÉE and UTI Patient is sitting comfortably offers no complaints of dizziness, no urinary symptoms, no fevers, no chills, tolerating diet PT saw the patient patient was unable to stand up for 30 seconds due to dizziness, was very unsteady, refusing rehab wishes to be discharged home, claims to live at home with who is . Review of Systems All other system reviewed and negative. Physical Exam 2 Vital Signs: Vital Signs: Last Vital Signs Temp 97.5 F 03/16/24 16:00 Pulse 60 03/16/24 16:00 Resp 18 03/16/24 16:00 BP 180/72 H 03/16/24 16:00 Pulse Ox 98 03/16/24 16:00 O2 Del Method Room Air 03/16/24 16:00 BMI result Body Mass Index 21.6 Const: Other: General resting comfortably in no acute distress. Anicteric sclera Neck no JVD. CVS regular rate rhythm, Respiratory lungs clear to auscultation, no respiratory distress, no wheeze, no rhonchi. Gastrointestinal abdomen soft, non tender, bowel sounds audible Left forearm ecchymotic lesions and superficial abrasions, full range of motion left elbow Extremities no LE edema. Neuro non focal , speech clear. Objective Data Active Medications Acetaminophen (Acetaminophen 325 Mg Tablet) 650 mg PO Q6H PRN PRN Reason: Pain, Mild (Pain Scale 1-3), fever or headache Calcium Carbonate (Calcium Carbonate 750 Mg Tab.Chew) 750 mg PO Q4H PRN PRN Reason: Heartburn Carvedilol (Carvedilol 6.25 Mg Tablet) 6.25 mg PO BID [facility]; Protocol Last Admin: 03/16/24 12:12 Dose: 6.25 mg Documented By: MEGAN Cefuroxime Axetil (Cefuroxime Axetil 250 Mg Tablet) 250 mg PO Q12H [facility] Last Admin: 03/16/24 16:02 Dose: 250 mg Documented By: MEGAN Enoxaparin Sodium (Enoxaparin Sodium 30 Mg/0.3 Ml Syringe) 30 mg SUBCUT Q24H [facility] Last Admin: 03/15/24 21:59 Dose: 30 mg Documented By: EVARISTO Glucose (Glucose Gel 15 Gm Gel..Gram.) 15 gm PO Q15M PRN; Protocol PRN Reason: per Hypoglycemia Standing Ord. Dextrose (D10) 250 mls @ 750 mls/hr IV Q15M PRN; Protocol PRN Reason: per Hypoglycemia Standing Ord. Insulin Human Lispro (Insulin Lispro 100 Unit/Ml 3 Ml Vial) 0 unit SUBCUT QIDACHS [facility]; Protocol Last Admin: 03/16/24 17:07 Dose: Not Given Documented By: BALDOMERO Non-Admin Reason: No Insulin Coverage Lorazepam (Lorazepam 1 Mg Tablet) 1 mg PO BEDTIME PRN PRN Reason: anxiety Magnesium Hydroxide (Milk Of Magnesia 30 Ml Oral.Susp) 30 ml PO DAILY PRN PRN Reason: Constipation Melatonin (Melatonin 3 Mg Tablet) 6 mg PO BEDTIME PRN PRN Reason: Insomnia Nifedipine (Nifedipine Er 30 Mg Tab.Er.24) 30 mg PO DAILY [facility]; Protocol Last Admin: 03/16/24 08:47 Dose: 30 mg Documented By: MEGAN Ondansetron HCl (Ondansetron Hcl 4 Mg/2 Ml Vial) 4 mg IVPUSH Q8H PRN PRN Reason: Nausea and Vomiting Last Admin: 03/15/24 22:32 Dose: 4 mg Documented By: EVARISTO Senna (Sennosides 8.6 Mg Tablet) 17.2 mg PO BEDTIME [facility] Last Admin: 03/15/24 22:00 Dose: 17.2 mg Documented By: EVARISTO Sodium Chloride (0.9 % Sodium Chloride Flush 3 Ml Syringe) 3 ml IVFLUSH QSHIFT [facility] Last Admin: 03/16/24 17:08 Dose: Not Given Documented By: BALDOMERO Non-Admin Reason: Previously Administered Trazodone HCl (Trazodone Hcl 25 Mg Halftab) 25 mg PO BEDTIME PRN PRN Reason: insomnia Labs 03/13/24 04:51 03/16/24 08:14 Labs: Laboratory Results - last 24 hr 03/15/24 03/16/24 03/16/24 20:38 08:03 08:14 Hold Purple Top SEE NOTE Anion Gap 10 L Estim Creat Clear Calc 26.8 Estimated GFR 35 POC Glucose 195 H 96 Random Glucose 92 Calcium 8.3 L 03/16/24 03/16/24 12:25 16:55 Hold Purple Top Anion Gap Estim Creat Clear Calc Estimated GFR POC Glucose 132 H 117 H Random Glucose Calcium Assessment and Plan (1) Acute kidney injury: Status: Acute (2) Urinary tract infection: Status: Acute (3) Syncope and collapse: Status: Acute Plan 70-year-old female with history of eve-asizyme-rxefyewsk type 2 diabetes, hypertension, history of CVA, CKD stage 3, history of complete heart block s/p pacemaker placement, diabetic polyneuropathy, mood disorder admitted for further management of acute syncopal episode and RENÉE related to dehydration with uti #Acute syncopal episode -persistent dizziness, systolic BP drops with no change in pulse -likely related to dehydration and hypovolemia, orthostatic blood pressures shows drop in blood pressure, no change in pulse likely autonomic dysfunction -Head ct negative for acute intracranial abnormality but shows chronic microangiopathy, volume loss, and chronic lacunar infarcts -no acute osseous abnormality on cervical spine CT, pelvis x-ray, hand x-ray -ekg shows AV dual paced rhythm , trop wnl -no arrhythmia on tele monitor , follow orthostatic BP , avoid hypotension -decrease dose of nifedipine to 30 mg and add lisinopril if bp elevated, ellie stockings,s/p ivf, push by mouth fluids -patient declined to participate with physical therapy, PT recommend short-term rehab, due to persistent dizziness/orthostatic BP #Acute UTI -urine culture grew E coli sensitive to ceftriaxone, s/p IV ctx (initiated 03/12) will transition to by mouth Ceftin 250 b.i.d. # acute on chronic kidney disease stage 3b -likely prerenal in the setting of acute dehydration/hypovolemia and infection -creatinine improved from 1.9 to 1.4 (at baseline) -avoid nephrotoxins -seen by nephrology they recommend to avoid to low blood pressures and agree with lisinopril once renal function at baseline # efv-lbodxjs-ixjdidxql type 2 diabetes -stable blood sugars continue diabetic diet and insulin sliding scale. Not on home medications. # hypertension -continue carvedilol, and nifedipine dose adjusted, add lisinopril as needed # history of complete heart block s/p pacemaker placement -EKG shows AV dual paced rhythm with PVCs, no arrhythmia on tele monitor # CVA history/ HLD -Lipitor 80 mg # Cognitive impairment likely vascular dementia CT head showed diffuse volume loss with moderate chronic microangiopathy, B12 493, TSH 0.92, folate 3.4 in 09/18 case discussed in detail with patient's daughter Pia Martínez HCP [phone], as per daughter her mentation is gradually declining since CVA in 09/15, daughter goes to all appointments with her since she is unable to provide history, she is alone at home during daytime, she is dependent on all ADLs, at times gets angry and aggravated, patient confabulates and provide history that she lives home in a 2 story building with her who is , daughter wishes patient to be discharged to rehab facility if she qualifies . Will repeat folate level. Will request psych for re-evaluation. DVT prophylaxis-renally adjusted Lovenox Full code Patient requires continued inpatient stay for management of acute syncopal episode and acute kidney injury related to dehydration and UTI requiring IV antibiotics, close monitoring of hemodynamics. Quality Stroke Does the patient have a stroke diagnosis?: No VTE Prior VTE?: No VTE Risk Level:: Medical - moderate - high VTE Device Contraindication: Treatment Not Indicated VTE Drug Contraindication: N/A - Med Ordered
[2024-03-16 20:35] LABS: Glucose, Whole Blood 196 mg/dL (60-115)
--- NOTE | 2024-03-16 20:37 | PC.NURSE ---
pt orthostatic vitals were actually taken at 0845 with this RN at bedside. Supine HR 57 BP 160/80, Sitting HR 64 BP150/70, Standing HR 65 BP 140/70 in that order. Pt denied dizziness, lightheadedness or nausea before during after each set. She was turned and repositioned for comfort/skin. Barrier cream applied to buttocks MASD area and pt offloaded from site.
[2024-03-16] MEDS: Enoxaparin Sodium 30 MG/0.3 ML SYRINGE SUBCUT (21:48)
[2024-03-16] MEDS: Sennosides 8.6 MG TABLET 17.2 MG PO (21:49)
[2024-03-16] MEDS: Insulin Lispro 100 UNIT/ML 3 ML VIAL SUBCUT (21:49)
[2024-03-17] VITALS (8 sets, daily range): BP systolic 148–178; BP diastolic 67–91; PULSE 59–62; RESP 18–20; TEMP 36–36.4; O2SAT 96–100
[2024-03-17] MEDS: cefuroxime axetiL 250 MG TABLET PO ×2 (00:36→14:54)
[2024-03-17 08:05] LABS: Glucose, Whole Blood 111 mg/dL (60-115)
[2024-03-17] MEDS: carvediloL 6.25 MG TABLET PO ×2 (08:29→20:02)
[2024-03-17] MEDS: NIFEdipine ER 30 MG TAB.ER.24 PO (08:29)
[2024-03-17] MEDS: 0.9 % Sodium Chloride Flush 3 ML SYRINGE IVFLUSH (08:31)
--- NOTE | 2024-03-17 10:50 | MHC.CM.PN ---
Psych has deemed Patient to have capacity; Per Attending in [facility] today, HCP is being invoked.Per MD, who spoke with Daughter/HCP/Pia yesterday, Patient lives with Pia, is , and Patient has had confusion X 3 years. PT is recommending STR and CM will continue to follow.
[2024-03-17 11:51] LABS: Glucose, Whole Blood 123 mg/dL (60-115)
--- NOTE | 2024-03-17 15:26 | P.PNIM_ITS ---
Subjective Subjective Date of Service: 03/18/24 Interval History: Being followed for UTI/syncope Resting comfortably, continue to decline symptoms, again noted to be dizzy with physical therapy, unable to stand and ambulate for more than 10 seconds due to dizziness. Tolerating diet, no nausea, no vomiting or abdominal pain, last bowel movement 03/13. Review of Systems All other system reviewed and are negative. Physical Exam 2 Vital Signs: Vital Signs: Last Vital Signs Temp 97.2 F 03/17/24 10:55 Pulse 61 03/17/24 10:55 Resp 19 03/17/24 10:55 BP 158/67 H 03/17/24 10:55 Pulse Ox 100 03/17/24 10:55 O2 Del Method Room Air 03/17/24 10:55 BMI result Body Mass Index 21.6 Const: Other: General resting comfortably in no acute distress. Anicteric sclera Neck no JVD. CVS regular rate rhythm, Respiratory lungs clear to auscultation, no respiratory distress, no wheeze, no rhonchi. Gastrointestinal abdomen soft, non tender, bowel sounds audible Left forearm ecchymotic lesions and superficial abrasions improving, full range of motion left elbow Extremities no LE edema. Neuro non focal , speech clear. Objective Data Active Medications Acetaminophen (Acetaminophen 325 Mg Tablet) 650 mg PO Q6H PRN PRN Reason: Pain, Mild (Pain Scale 1-3), fever or headache Calcium Carbonate (Calcium Carbonate 750 Mg Tab.Chew) 750 mg PO Q4H PRN PRN Reason: Heartburn Carvedilol (Carvedilol 6.25 Mg Tablet) 6.25 mg PO BID [facility]; Protocol Last Admin: 03/17/24 08:29 Dose: 6.25 mg Documented By: SHUN Cefuroxime Axetil (Cefuroxime Axetil 250 Mg Tablet) 250 mg PO Q12H [facility] Last Admin: 03/17/24 14:54 Dose: 250 mg Documented By: HSUN Enoxaparin Sodium (Enoxaparin Sodium 30 Mg/0.3 Ml Syringe) 30 mg SUBCUT Q24H [facility] Last Admin: 03/16/24 21:48 Dose: 30 mg Documented By: EVARISTO Glucose (Glucose Gel 15 Gm Gel..Gram.) 15 gm PO Q15M PRN; Protocol PRN Reason: per Hypoglycemia Standing Ord. Dextrose (D10) 250 mls @ 750 mls/hr IV Q15M PRN; Protocol PRN Reason: per Hypoglycemia Standing Ord. Insulin Human Lispro (Insulin Lispro 100 Unit/Ml 3 Ml Vial) 0 unit SUBCUT QIDACHS [facility]; Protocol Last Admin: 03/17/24 12:21 Dose: Not Given Documented By: SHUN Non-Admin Reason: No Insulin Coverage Lisinopril (Lisinopril 10 Mg Tablet) 10 mg PO DAILY [facility]; Protocol Lorazepam (Lorazepam 0.5 Mg Tablet) 0.5 mg PO BEDTIME PRN PRN Reason: anxiety Magnesium Hydroxide (Milk Of Magnesia 30 Ml Oral.Susp) 30 ml PO DAILY PRN PRN Reason: Constipation Melatonin (Melatonin 3 Mg Tablet) 6 mg PO BEDTIME PRN PRN Reason: Insomnia Nifedipine (Nifedipine Er 30 Mg Tab.Er.24) 30 mg PO DAILY [facility]; Protocol Last Admin: 03/17/24 08:29 Dose: 30 mg Documented By: SHUN Ondansetron HCl (Ondansetron Hcl 4 Mg/2 Ml Vial) 4 mg IVPUSH Q8H PRN PRN Reason: Nausea and Vomiting Last Admin: 03/15/24 22:32 Dose: 4 mg Documented By: EVARISTO Senna (Sennosides 8.6 Mg Tablet) 17.2 mg PO BEDTIME [facility] Last Admin: 03/16/24 21:49 Dose: 17.2 mg Documented By: EVARISTO Sodium Chloride (0.9 % Sodium Chloride Flush 3 Ml Syringe) [facility] Last Admin: 03/17/24 08:31 Dose: 3 ml Documented By: SHUN Trazodone HCl (Trazodone Hcl 25 Mg Halftab) 25 mg PO BEDTIME PRN PRN Reason: insomnia Labs 03/13/24 04:51 03/18/24 05:22 Labs: Laboratory Results - last 24 hr 03/16/24 03/16/24 03/17/24 16:55 20:31 07:55 POC Glucose 117 H 196 H 111 03/17/24 11:45 POC Glucose 123 H Assessment and Plan (1) Acute kidney injury: Status: Acute (2) Urinary tract infection: Status: Acute (3) Syncope and collapse: Status: Acute Plan 70-year-old female with history of gtl-manogtq-trgwseobi type 2 diabetes, hypertension, history of CVA, CKD stage 3, history of complete heart block s/p pacemaker placement, diabetic polyneuropathy, mood disorder admitted for further management of acute syncopal episode and RENÉE related to dehydration with uti #Acute syncopal episode -persistent dizziness, systolic BP drops with no change in pulse -likely related to dehydration and autonomic dysfunction -Head ct negative for acute intracranial abnormality but shows chronic microangiopathy, volume loss, and chronic lacunar infarcts -no acute osseous abnormality on cervical spine CT, pelvis x-ray, hand x-ray -ekg shows AV dual paced rhythm , trop wnl -no arrhythmia on tele monitor -decrease dose of nifedipine to 30 mg and add lisinopril for elevated bp, ellie stockings, give additional 1 L of fluids -patient declined to participate with physical therapy, PT recommend short-term rehab, due to persistent dizziness/orthostatic BP #Acute UTI -urine culture grew E coli sensitive to ceftriaxone, s/p IV ctx (initiated 03/12) now on Ceftin 250 b.i.d.started on 03/16 # acute on chronic kidney disease stage 3b -likely prerenal in the setting of acute dehydration/hypovolemia and infection -creatinine improved from 1.9 to 1.4 (at baseline) -avoid nephrotoxins -seen by nephrology they recommend to avoid to low blood pressures and agree with lisinopril once renal function at baseline # fal-ehysiip-senlgckqj type 2 diabetes -stable blood sugars continue diabetic diet and insulin sliding scale. Not on home medications. # hypertension -continue carvedilol, and nifedipine dose adjusted, added lisinopril # history of complete heart block s/p pacemaker placement -EKG shows AV dual paced rhythm with PVCs, no arrhythmia on tele monitor # CVA history/ HLD -Lipitor 80 mg # Cognitive impairment likely vascular dementia CT head showed diffuse volume loss with moderate chronic microangiopathy, B12 493, TSH 0.92, folate 3.4 in 09/18 case discussed in detail with patient's daughter Pia Martínez HCP [phone], as per daughter her mentation is gradually declining since CVA in 09/15, daughter goes to all appointments with her since she is unable to provide history, she is alone at home during daytime, she is dependent on all ADLs, at times gets angry and aggravated, patient confabulates and provide history that she lives home in a 2 story building with her who is , daughter wishes patient to be discharged to rehab facility . Will invoke healthcare proxy, daughter Pia Martínez is hcp DVT prophylaxis-renally adjusted Lovenox Full code Patient requires continued inpatient stay for management of acute syncopal episode and acute kidney injury related to dehydration and UTI requiring IV antibiotics, close monitoring of hemodynamics. Quality Stroke Does the patient have a stroke diagnosis?: No VTE Prior VTE?: No VTE Risk Level:: Medical - moderate - high VTE Device Contraindication: Treatment Not Indicated VTE Drug Contraindication: N/A - Med Ordered
[2024-03-17] MEDS: lisinopriL 10 MG TABLET PO (16:15)
[2024-03-17] MEDS: Dextrose 5 % and 0.45 % NaCl 1,000 ML 80 ML IVCONT (16:19)
[2024-03-17 17:10] LABS: Glucose, Whole Blood 215 mg/dL (60-115)
[2024-03-17] MEDS: Enoxaparin Sodium 30 MG/0.3 ML SYRINGE SUBCUT (20:02)
[2024-03-17] MEDS: Sennosides 8.6 MG TABLET 17.2 MG PO (20:02)
[2024-03-17 20:50] LABS: Glucose, Whole Blood 341 mg/dL (60-115)
[2024-03-17] MEDS: Insulin Lispro 100 UNIT/ML 3 ML VIAL SUBCUT (21:25)
[2024-03-18] VITALS: BP 142/62; PULSE 60; RESP 18; TEMP 36.1; O2SAT 99
[2024-03-18] MEDS: cefuroxime axetiL 250 MG TABLET PO ×2 (02:34→12:20)
[2024-03-18 03:59] VITALS: BP 152/68; PULSE 60; RESP 18; TEMP 36.1; O2SAT 96
[2024-03-18 06:31] LABS: Anion Gap 11 (12-20); Blood Urea Nitrogen 22 mg/dL (9-16); Calcium 8.6 mg/dL (8.4-10.2); Carbon Dioxide 21 mmol/L (22-29); Chloride 111 mmol/L (96-108); Creatinine Clr Calc Pharmacy 28.6; Estimated Glomerular Filt Rate 38; Glucose Random 88 mg/dL (60-115); Potassium 3.8 mmol/L (3.3-5.1); Sodium 139 mmol/L (135-145)
[2024-03-18 07:04] LABS: Folate 6.5 ng/mL (> or = 4.0)
[2024-03-18 07:33] LABS: Glucose, Whole Blood 97 mg/dL (60-115)
[2024-03-18 08:00] VITALS: BP 141/68; PULSE 61; RESP 18; TEMP 36.5; O2SAT 99
[2024-03-18] MEDS: lisinopriL 10 MG TABLET PO (09:22)
[2024-03-18] MEDS: carvediloL 6.25 MG TABLET PO ×2 (09:22→20:01)
[2024-03-18] MEDS: NIFEdipine ER 30 MG TAB.ER.24 PO (09:22)
[2024-03-18] MEDS: polyethylene glycoL 3350 17 GM POWD.PACK PO (09:23)
[2024-03-18] MEDS: 0.9 % Sodium Chloride Flush 3 ML SYRINGE IVFLUSH ×3 (09:23→20:02)
[2024-03-18 12:00] VITALS: BP 173/68; PULSE 60; RESP 18; TEMP 36.1; O2SAT 99
[2024-03-18] MEDS: Insulin Lispro 100 UNIT/ML 3 ML VIAL SUBCUT ×3 (12:20→20:02)
[2024-03-18 12:51] LABS: Glucose, Whole Blood 193 mg/dL (60-115)
--- NOTE | 2024-03-18 15:52 | HO.PM.IMPN ---
Subjective Subjective Date of Service: 03/19/24 Interval History: Being followed for syncope/UTI Offers no acute complaints, denies dizziness rest,, no nausea, no vomiting, no diarrhea, noted to have dizziness with ambulation., Review of Systems All other system reviewed and are negative. Physical Exam Vital Signs: Vital Signs: Last Vital Signs Temp 97.0 F 03/18/24 12:00 Pulse 60 03/18/24 12:00 Resp 18 03/18/24 12:00 BP 173/68 H 03/18/24 12:00 Pulse Ox 99 03/18/24 12:00 O2 Del Method Room Air 03/18/24 08:00 BMI result Body Mass Index 21.6 Const: Other: General resting comfortably in no acute distress. Anicteric sclera Neck no JVD. CVS regular rate rhythm, Respiratory lungs clear to auscultation, no respiratory distress, no wheeze, no rhonchi. Gastrointestinal abdomen soft, non tender, bowel sounds audible Left forearm ecchymotic lesions and superficial abrasions improving, full range of motion left elbow Extremities no LE edema. Neuro non focal , speech clear. Objective Data Active Medications Acetaminophen (Acetaminophen 325 Mg Tablet) 650 mg PO Q6H PRN PRN Reason: Pain, Mild (Pain Scale 1-3), fever or headache Calcium Carbonate (Calcium Carbonate 750 Mg Tab.Chew) 750 mg PO Q4H PRN PRN Reason: Heartburn Carvedilol (Carvedilol 6.25 Mg Tablet) 6.25 mg PO BID [facility]; Protocol Last Admin: 03/18/24 09:22 Dose: 6.25 mg Documented By: RADHA Cefuroxime Axetil (Cefuroxime Axetil 250 Mg Tablet) 250 mg PO Q12H [facility] Last Admin: 03/18/24 12:20 Dose: 250 mg Documented By: PODMORP Enoxaparin Sodium (Enoxaparin Sodium 30 Mg/0.3 Ml Syringe) 30 mg SUBCUT Q24H [facility] Last Admin: 03/17/24 20:02 Dose: 30 mg Documented By: SKYLA Glucose (Glucose Gel 15 Gm Gel..Gram.) 15 gm PO Q15M PRN; Protocol PRN Reason: per Hypoglycemia Standing Ord. Dextrose (D10) 250 mls @ 750 mls/hr IV Q15M PRN; Protocol PRN Reason: per Hypoglycemia Standing Ord. Insulin Human Lispro (Insulin Lispro 100 Unit/Ml 3 Ml Vial) 0 unit SUBCUT QIDACHS [facility]; Protocol Last Admin: 03/18/24 12:20 Dose: 2 unit Documented By: PODMORP Lisinopril (Lisinopril 10 Mg Tablet) 10 mg PO DAILY [facility]; Protocol Last Admin: 03/18/24 09:22 Dose: 10 mg Documented By: RADHA Lorazepam (Lorazepam 0.5 Mg Tablet) 0.5 mg PO BEDTIME PRN PRN Reason: anxiety Magnesium Hydroxide (Milk Of Magnesia 30 Ml Oral.Susp) 30 ml PO DAILY PRN PRN Reason: Constipation Melatonin (Melatonin 3 Mg Tablet) 6 mg PO BEDTIME PRN PRN Reason: Insomnia Nifedipine (Nifedipine Er 30 Mg Tab.Er.24) 30 mg PO DAILY [facility]; Protocol Last Admin: 03/18/24 09:22 Dose: 30 mg Documented By: RADHA Ondansetron HCl (Ondansetron Hcl 4 Mg/2 Ml Vial) 4 mg IVPUSH Q8H PRN PRN Reason: Nausea and Vomiting Last Admin: 03/15/24 22:32 Dose: 4 mg Documented By: EVARISTO Polyethylene Glycol (Polyethylene Glycol 3350 17 Gm Powd.Pack) 17 gm PO DAILY [facility] Last Admin: 03/18/24 09:23 Dose: 17 gm Documented By: RADHA Senna (Sennosides 8.6 Mg Tablet) 17.2 mg PO BEDTIME [facility] Last Admin: 03/17/24 20:02 Dose: 17.2 mg Documented By: SKYLA Sodium Chloride (0.9 % Sodium Chloride Flush 3 Ml Syringe) 3 ml IVFLUSH QSHIFT [facility] Last Admin: 03/18/24 09:23 Dose: 3 ml Documented By: RADHA Trazodone HCl (Trazodone Hcl 25 Mg Halftab) 25 mg PO BEDTIME PRN PRN Reason: insomnia Labs 03/13/24 04:51 03/18/24 05:22 Labs: Laboratory Results - last 24 hr 03/17/24 03/17/24 03/18/24 17:03 20:38 05:22 Hold Purple Top SEE NOTE Anion Gap 11 L Estim Creat Clear Calc 28.6 Estimated GFR 38 POC Glucose 215 H 341 H Random Glucose 88 Calcium 8.6 Folate 6.5 03/18/24 03/18/24 07:21 11:32 Hold Purple Top Anion Gap Estim Creat Clear Calc Estimated GFR POC Glucose 97 193 H Random Glucose Calcium Folate Assessment and Plan (1) Acute kidney injury: Status: Acute (2) Urinary tract infection: Status: Acute (3) Syncope and collapse: Status: Acute Plan 70-year-old female with history of odn-ddlqfrk-[id number] type 2 diabetes, hypertension, history of CVA, CKD stage 3, history of complete heart block s/p pacemaker placement, diabetic polyneuropathy, mood disorder admitted for further management of acute syncopal episode and RENÉE related to dehydration with uti #Acute syncopal episode -persistent dizziness, systolic BP drops with no change in pulse -likely related to dehydration and autonomic dysfunction -Head ct negative for acute intracranial abnormality but shows chronic microangiopathy, volume loss, and chronic lacunar infarcts -no acute osseous abnormality on cervical spine CT, pelvis x-ray, hand x-ray -ekg shows AV dual paced rhythm , trop wnl -no arrhythmia on tele monitor -decrease dose of nifedipine to 30 mg and added lisinopril for elevated bp, ellie stockings, push by mouth fluids call -patient declined to participate with physical therapy, PT recommend short-term rehab, due to persistent dizziness/orthostatic BP #Acute UTI -urine culture grew E coli sensitive to ceftriaxone, s/p IV ctx (initiated 03/12) now on Ceftin 250 b.i.d.started on 03/16 # acute on chronic kidney disease stage 3b -likely prerenal in the setting of acute dehydration/hypovolemia and infection -creatinine improved from 1.9 to 1.34 (at baseline) -avoid nephrotoxins -seen by nephrology they recommend to avoid to low blood pressures and agree with lisinopril # jle-snheizd-lpaoyzoyf type 2 diabetes -stable blood sugars continue diabetic diet and insulin sliding scale. Not on home medications. # hypertension -continue carvedilol, and nifedipine dose adjusted, added lisinopril # history of complete heart block s/p pacemaker placement -EKG shows AV dual paced rhythm with PVCs, no arrhythmia on tele monitor # CVA history/ HLD -Lipitor 80 mg # Cognitive impairment likely vascular dementia CT head showed diffuse volume loss with moderate chronic microangiopathy, B12 493, TSH 0.92, folate normal case discussed in detail with patient's daughter Pia Martínez HCP [phone], as per daughter her mentation is gradually declining since CVA in 09/15, daughter goes to all appointments with her since she is unable to provide history, she is alone at home during daytime, she is dependent on all ADLs, at times gets angry and aggravated, patient confabulates and provide history that she lives home in a 2 story building with her who is , daughter wishes patient to be discharged to rehab facility . healthcare proxy invoked, daughter Pia Martínez is hcp,notified caseworker DVT prophylaxis-renally adjusted Lovenox Full code Patient requires continued inpatient stay for management of acute syncopal episode and acute kidney injury related to dehydration and UTI requiring close monitoring of hemodynamics. Quality Stroke Does the patient have a stroke diagnosis?: No VTE Prior VTE?: No VTE Risk Level:: Medical - moderate - high VTE Device Contraindication: Treatment Not Indicated VTE Drug Contraindication: N/A - Med Ordered
[2024-03-18 16:00] VITALS: BP 122/68; PULSE 57; RESP 18; TEMP 36.4; O2SAT 99
[2024-03-18 16:06] LABS: Glucose, Whole Blood 171 mg/dL (60-115)
[2024-03-18 20:00] VITALS: BP 146/68; PULSE 60; RESP 18; TEMP 36.7; O2SAT 96
[2024-03-18] MEDS: Sennosides 8.6 MG TABLET 17.2 MG PO (20:02)
[2024-03-18] MEDS: Enoxaparin Sodium 30 MG/0.3 ML SYRINGE SUBCUT (20:02)
[2024-03-18 20:44] LABS: Glucose, Whole Blood 161 mg/dL (60-115)
[2024-03-18 20:48] LABS: Glucose, Whole Blood 174 mg/dL (60-115)
[2024-03-19] VITALS (7 sets, daily range): BP systolic 137–156; BP diastolic 59–76; PULSE 60–61; RESP 17–18; TEMP 36.2–37.2; O2SAT 96–99
[2024-03-19] MEDS: cefuroxime axetiL 250 MG TABLET PO ×2 (02:07→13:40)
[2024-03-19 07:27] LABS: Glucose, Whole Blood 101 mg/dL (60-115)
[2024-03-19] MEDS: polyethylene glycoL 3350 17 GM POWD.PACK PO (08:41)
[2024-03-19] MEDS: carvediloL 6.25 MG TABLET PO ×2 (08:41→20:35)
[2024-03-19] MEDS: NIFEdipine ER 30 MG TAB.ER.24 PO (08:41)
[2024-03-19] MEDS: lisinopriL 10 MG TABLET PO (08:41)
[2024-03-19] MEDS: 0.9 % Sodium Chloride Flush 3 ML SYRINGE IVFLUSH ×3 (08:44→20:36)
[2024-03-19 11:01] LABS: Glucose, Whole Blood 211 mg/dL (60-115)
[2024-03-19] MEDS: Insulin Lispro 100 UNIT/ML 3 ML VIAL SUBCUT ×3 (11:30→20:36)
--- NOTE | 2024-03-19 12:47 | MHC.CM.PN ---
Addendum entered by Carol Abdul 03/19/24 12:51: CM SPOKE TO PTS DAUGHTERCICI, WHO SAYS STR IS THE GOAL SHE REQUESTED A REFERRAL TO [facility], WHERE PT HAS BEEN IN THE PAST, BUT UNDERSTANDS THE PT MAY NOT QUALIFY FOR THAT LOC PER DISCUSSION, A BROAD REFERRAL WILL ALSO BE MADE TO LOCAL STR SNFS CONTRACTED WITH HER INSURANCE Original Note: LEFT FOR PTS CICI TELLO, REQUESTING A RETURN CALL TO DISCUSS DC PLANS
--- NOTE | 2024-03-19 15:50 | P.PNIM_ITS ---
Subjective Subjective Date of Service: 03/20/24 Interval History: Being followed for syncope/UTI and RENÉE Offers no acute complaints, willing to ambulate, denies dizziness denies fever, no chills, no urinary symptoms tolerating diet , no acute events overnight. Review of Systems All other system reviewed and are negative. Physical Exam 2 Vital Signs: Vital Signs: Last Vital Signs Temp 97.1 F 03/19/24 11:46 Pulse 60 03/19/24 11:46 Resp 18 03/19/24 11:46 BP 148/68 H 03/19/24 11:46 Pulse Ox 98 03/19/24 11:46 O2 Del Method Room Air 03/19/24 11:46 BMI result Body Mass Index 21.6 Const: Other: General resting comfortably in no acute distress. Anicteric sclera Neck no JVD. CVS regular rate rhythm, Respiratory lungs clear to auscultation, no respiratory distress, no wheeze, no rhonchi. Gastrointestinal abdomen soft, non tender, bowel sounds audible Left forearm ecchymotic lesions and superficial abrasions improving, full range of motion left elbow Extremities no LE edema. Neuro non focal , speech clear. Objective Data Active Medications Acetaminophen (Acetaminophen 325 Mg Tablet) 650 mg PO Q6H PRN PRN Reason: Pain, Mild (Pain Scale 1-3), fever or headache Calcium Carbonate (Calcium Carbonate 750 Mg Tab.Chew) 750 mg PO Q4H PRN PRN Reason: Heartburn Carvedilol (Carvedilol 6.25 Mg Tablet) 6.25 mg PO BID [facility]; Protocol Last Admin: 03/19/24 08:41 Dose: 6.25 mg Documented By: SHUN Cefuroxime Axetil (Cefuroxime Axetil 250 Mg Tablet) 250 mg PO Q12H [facility] Last Admin: 03/19/24 13:40 Dose: 250 mg Documented By: SHUN Enoxaparin Sodium (Enoxaparin Sodium 30 Mg/0.3 Ml Syringe) 30 mg SUBCUT Q24H [facility] Last Admin: 03/18/24 20:02 Dose: 30 mg Documented By: MIKA Glucose (Glucose Gel 15 Gm Gel..Gram.) 15 gm PO Q15M PRN; Protocol PRN Reason: per Hypoglycemia Standing Ord. Dextrose (D10) 250 mls @ 750 mls/hr IV Q15M PRN; Protocol PRN Reason: per Hypoglycemia Standing Ord. Insulin Human Lispro (Insulin Lispro 100 Unit/Ml 3 Ml Vial) 0 unit SUBCUT QIDACHS [facility]; Protocol Last Admin: 03/19/24 11:30 Dose: 4 unit Documented By: SHUN Lisinopril (Lisinopril 10 Mg Tablet) 10 mg PO DAILY [facility]; Protocol Last Admin: 03/19/24 08:41 Dose: 10 mg Documented By: SHUN Lorazepam (Lorazepam 0.5 Mg Tablet) 0.5 mg PO BEDTIME PRN PRN Reason: anxiety Magnesium Hydroxide (Milk Of Magnesia 30 Ml Oral.Susp) 30 ml PO DAILY PRN PRN Reason: Constipation Melatonin (Melatonin 3 Mg Tablet) 6 mg PO BEDTIME PRN PRN Reason: Insomnia Nifedipine (Nifedipine Er 30 Mg Tab.Er.24) 30 mg PO DAILY [facility]; Protocol Last Admin: 03/19/24 08:41 Dose: 30 mg Documented By: SHUN Ondansetron HCl (Ondansetron Hcl 4 Mg/2 Ml Vial) 4 mg IVPUSH Q8H PRN PRN Reason: Nausea and Vomiting Last Admin: 03/15/24 22:32 Dose: 4 mg Documented By: EVARISTO Polyethylene Glycol (Polyethylene Glycol 3350 17 Gm Powd.Pack) 17 gm PO DAILY [facility] Last Admin: 03/19/24 08:41 Dose: 17 gm Documented By: SHUN Senna (Sennosides 8.6 Mg Tablet) 17.2 mg PO BEDTIME [facility] Last Admin: 03/18/24 20:02 Dose: 17.2 mg Documented By: MIKA Sodium Chloride (0.9 % Sodium Chloride Flush 3 Ml Syringe) 3 ml IVFLUSH QSHIFT [facility] Last Admin: 03/19/24 08:44 Dose: 3 ml Documented By: SHUN Trazodone HCl (Trazodone Hcl 25 Mg Halftab) 25 mg PO BEDTIME PRN PRN Reason: insomnia Labs 03/13/24 04:51 03/18/24 05:22 Labs: Laboratory Results - last 24 hr 03/18/24 03/18/24 03/18/24 16:02 19:53 20:39 POC Glucose 171 H 161 H 174 H 03/19/24 03/19/24 07:16 10:48 POC Glucose 101 211 H Assessment and Plan (1) Acute kidney injury: Status: Acute (2) Urinary tract infection: Status: Acute (3) Syncope and collapse: Status: Acute Plan 70-year-old female with history of xqy-[id number]-ojhpzqplg type 2 diabetes, hypertension, history of CVA, CKD stage 3, history of complete heart block s/p pacemaker placement, diabetic polyneuropathy, mood disorder admitted for further management of acute syncopal episode and RENÉE related to dehydration with uti #Acute syncopal episode -intermittent dizziness, normal orthostatic BP , less positional drop in systolic BP, ? autonomic dysfunction -Head ct negative for acute intracranial abnormality but shows chronic microangiopathy, volume loss, and chronic lacunar infarcts -no acute osseous abnormality on cervical spine CT, pelvis x-ray, hand x-ray -ekg shows AV dual paced rhythm , trop wnl -no arrhythmia on tele monitor -decrease dose of nifedipine to 30 mg , added lisinopril , ellie stockings, with better blood pressure control -PT recommend short-term rehab, due to persistent dizziness/orthostatic BP #Acute UTI -urine culture grew E coli sensitive to ceftriaxone, s/p IV ctx (initiated 03/12) now on Ceftin 250 b.i.d.started on 03/16 , will DC antibiotics # acute on chronic kidney disease stage 3b -likely prerenal in the setting of acute dehydration/hypovolemia and infection -creatinine improved from 1.9 to 1.34 (at baseline) -avoid nephrotoxins -seen by nephrology they recommend to avoid to low blood pressures and agree with lisinopril . # sjg-ffestuh-xrncvojii type 2 diabetes -stable blood sugars continue diabetic diet and insulin sliding scale. Not on home medications. # hypertension -continue carvedilol, and nifedipine dose adjusted, added lisinopril # history of complete heart block s/p pacemaker placement -EKG shows AV dual paced rhythm with PVCs, no arrhythmia on tele monitor # CVA history/ HLD -Lipitor 80 mg # Cognitive impairment likely vascular dementia CT head showed diffuse volume loss with moderate chronic microangiopathy, B12 493, TSH 0.92, folate normal case discussed in detail with patient's daughter Pia Martínez HCP [phone], as per daughter her mentation is gradually declining since CVA in 09/15, daughter goes to all appointments with her since she is unable to provide history, she is alone at home during daytime, she is dependent on all ADLs, at times gets angry and aggravated, patient confabulates and provide history that she lives home in a 2 story building with her who is , daughter wishes patient to be discharged to rehab facility . healthcare proxy invoked, daughter Pia Martínez is hcp,notified high risk case manager DVT prophylaxis-renally adjusted Lovenox Full code Patient requires continued inpatient stay for management of acute syncopal episode and acute kidney injury related to dehydration and UTI requiring close monitoring of hemodynamics. Quality Stroke Does the patient have a stroke diagnosis?: No VTE Prior VTE?: No VTE Risk Level:: Medical - moderate - high VTE Device Contraindication: Treatment Not Indicated VTE Drug Contraindication: N/A - Med Ordered
[2024-03-19 16:23] LABS: Glucose, Whole Blood 265 mg/dL (60-115)
[2024-03-19 20:13] LABS: Glucose, Whole Blood 169 mg/dL (60-115)
[2024-03-19] MEDS: Sennosides 8.6 MG TABLET 17.2 MG PO (20:35)
[2024-03-19] MEDS: Enoxaparin Sodium 30 MG/0.3 ML SYRINGE SUBCUT (20:36)
[2024-03-20] VITALS (7 sets, daily range): BP systolic 101–165; BP diastolic 60–78; PULSE 61–86; RESP 16–20; TEMP 36.1–36.6; O2SAT 96–100
[2024-03-20] MEDS: cefuroxime axetiL 250 MG TABLET PO ×2 (02:34→13:56)
[2024-03-20 07:30] LABS: Glucose, Whole Blood 157 mg/dL (60-115)
[2024-03-20] MEDS: Insulin Lispro 100 UNIT/ML 3 ML VIAL SUBCUT ×2 (09:17→17:19)
[2024-03-20] MEDS: 0.9 % Sodium Chloride Flush 3 ML SYRINGE IVFLUSH ×3 (09:18→20:10)
[2024-03-20] MEDS: polyethylene glycoL 3350 17 GM POWD.PACK PO (09:18)
[2024-03-20] MEDS: carvediloL 6.25 MG TABLET PO ×2 (09:18→20:10)
[2024-03-20] MEDS: lisinopriL 10 MG TABLET PO (09:18)
[2024-03-20] MEDS: NIFEdipine ER 30 MG TAB.ER.24 PO (09:18)
--- NOTE | 2024-03-20 11:14 | MHC.CM.PN ---
Per ROUNDS discussion, Patient has been medically cleared for dc to SNF/STR; CM spoke with Daughter/HCP/Pia @ [phone], who has accepted a bed offer from [facility]; CM has asked that they initiate auth with [employer]. CM will follow.
[2024-03-20 11:42] LABS: Glucose, Whole Blood 136 mg/dL (60-115)
--- NOTE | 2024-03-20 16:56 | HO.PM.IMPN ---
Subjective Subjective Date of Service: 03/20/24 Interval History: Being followed for syncope/RENÉE and UTI Offers no acute complaints, tolerating diet, intermittent complain of dizziness, pleasantly confused. Review of Systems All other system reviewed and negative, limited due to mental status. Physical Exam Vital Signs: Vital Signs: Last Vital Signs Temp 97 F 03/20/24 16:21 Pulse 66 03/20/24 16:21 Resp 16 03/20/24 16:21 BP 157/70 H 03/20/24 16:21 Pulse Ox 100 03/20/24 16:21 O2 Del Method Room Air 03/20/24 16:21 BMI result Body Mass Index 21.6 Const: Other: General resting comfortably in no acute distress. Anicteric sclera Neck no JVD. CVS regular rate rhythm, Respiratory lungs clear to auscultation, no respiratory distress, no wheeze, no rhonchi. Gastrointestinal abdomen soft, non tender, bowel sounds audible Left forearm ecchymotic lesions and superficial abrasions improved, full range of motion left elbow Extremities no LE edema. Neuro non focal , speech clear. Objective Data Active Medications Acetaminophen (Acetaminophen 325 Mg Tablet) 650 mg PO Q6H PRN PRN Reason: Pain, Mild (Pain Scale 1-3), fever or headache Calcium Carbonate (Calcium Carbonate 750 Mg Tab.Chew) 750 mg PO Q4H PRN PRN Reason: Heartburn Carvedilol (Carvedilol 6.25 Mg Tablet) 6.25 mg PO BID [facility]; Protocol Last Admin: 03/20/24 09:18 Dose: 6.25 mg Documented By: KI Cefuroxime Axetil (Cefuroxime Axetil 250 Mg Tablet) 250 mg PO Q12H [facility] Last Admin: 03/20/24 13:56 Dose: 250 mg Documented By: KI Enoxaparin Sodium (Enoxaparin Sodium 30 Mg/0.3 Ml Syringe) 30 mg SUBCUT Q24H [facility] Last Admin: 03/19/24 20:36 Dose: 30 mg Documented By: MIKA Glucose (Glucose Gel 15 Gm Gel..Gram.) 15 gm PO Q15M PRN; Protocol PRN Reason: per Hypoglycemia Standing Ord. Dextrose (D10) 250 mls @ 750 mls/hr IV Q15M PRN; Protocol PRN Reason: per Hypoglycemia Standing Ord. Insulin Human Lispro (Insulin Lispro 100 Unit/Ml 3 Ml Vial) 0 unit SUBCUT QIDACHS [facility]; Protocol Last Admin: 03/20/24 11:47 Dose: Not Given Documented By: KI Non-Admin Reason: No Insulin Coverage Lisinopril (Lisinopril 10 Mg Tablet) 10 mg PO DAILY [facility]; Protocol Last Admin: 03/20/24 09:18 Dose: 10 mg Documented By: KI Lorazepam (Lorazepam 0.5 Mg Tablet) 0.5 mg PO BEDTIME PRN PRN Reason: anxiety Magnesium Hydroxide (Milk Of Magnesia 30 Ml Oral.Susp) 30 ml PO DAILY PRN PRN Reason: Constipation Melatonin (Melatonin 3 Mg Tablet) 6 mg PO BEDTIME PRN PRN Reason: Insomnia Nifedipine (Nifedipine Er 30 Mg Tab.Er.24) 30 mg PO DAILY [facility]; Protocol Last Admin: 03/20/24 09:18 Dose: 30 mg Documented By: KI Ondansetron HCl (Ondansetron Hcl 4 Mg/2 Ml Vial) 4 mg IVPUSH Q8H PRN PRN Reason: Nausea and Vomiting Last Admin: 03/15/24 22:32 Dose: 4 mg Documented By: EVARISTO Polyethylene Glycol (Polyethylene Glycol 3350 17 Gm Powd.Pack) 17 gm PO DAILY [facility] Last Admin: 03/20/24 09:18 Dose: 17 gm Documented By: KI Senna (Sennosides 8.6 Mg Tablet) 17.2 mg PO BEDTIME [facility] Last Admin: 03/19/24 20:35 Dose: 17.2 mg Documented By: MIKA Sodium Chloride (0.9 % Sodium Chloride Flush 3 Ml Syringe) 3 ml IVFLUSH QSHIFT [facility] Last Admin: 03/20/24 09:18 Dose: 3 ml Documented By: KI Trazodone HCl (Trazodone Hcl 25 Mg Halftab) 25 mg PO BEDTIME PRN PRN Reason: insomnia Labs 03/13/24 04:51 03/18/24 05:22 Labs: Laboratory Results - last 24 hr 03/19/24 03/20/24 03/20/24 19:49 07:26 11:09 POC Glucose 169 H 157 H 136 H Assessment and Plan (1) Acute kidney injury: Status: Acute (2) Urinary tract infection: Status: Acute (3) Syncope and collapse: Status: Acute Plan 70-year-old female with history of dwb-hmrkchf-ictrnatzu type 2 diabetes, hypertension, history of CVA, CKD stage 3, history of complete heart block s/p pacemaker placement, diabetic polyneuropathy, mood disorder admitted for further management of acute syncopal episode and RENÉE related to dehydration with uti #Acute syncopal episode -intermittent dizziness, normal orthostatic BP , less positional drop in systolic BP, ? autonomic dysfunction -Head ct negative for acute intracranial abnormality but shows chronic microangiopathy, volume loss, and chronic lacunar infarcts -no acute osseous abnormality on cervical spine CT, pelvis x-ray, hand x-ray -ekg shows AV dual paced rhythm , trop wnl -no arrhythmia on tele monitor -decrease dose of nifedipine to 30 mg , added lisinopril , ellie stockings, with better blood pressure control -PT recommend short-term rehab, due to persistent dizziness/orthostatic BP. #Acute UTI -urine culture grew E coli sensitive to ceftriaxone, s/p IV ctx (initiated 03/12) now on Ceftin 250 b.i.d.started on 03/16 , finished course of antibiotic. # acute on chronic kidney disease stage 3b -likely prerenal in the setting of acute dehydration/hypovolemia and infection -creatinine improved from 1.9 to 1.34 (at baseline) -avoid nephrotoxins -seen by nephrology they recommend to avoid to low blood pressures and agree with lisinopril . # xgl-jrrxxzf-wwseciozj type 2 diabetes -stable blood sugars continue diabetic diet and insulin sliding scale. Not on home medications. # hypertension -continue carvedilol, and nifedipine dose adjusted, added lisinopril # history of complete heart block s/p pacemaker placement -EKG shows AV dual paced rhythm with PVCs, no arrhythmia on tele monitor # CVA history/ HLD -Lipitor 80 mg # Cognitive impairment likely vascular dementia CT head showed diffuse volume loss with moderate chronic microangiopathy, B12 493, TSH 0.92, folate normal case discussed in detail with patient's daughter Pia Martínez HCP [phone], as per daughter her mentation is gradually declining since CVA in 09/15, daughter goes to all appointments with her since she is unable to provide history, she is alone at home during daytime, she is dependent on all ADLs, at times gets angry and aggravated, patient confabulates and provide history that she lives home in a 2 story building with her who is , daughter wishes patient to be discharged to rehab facility . healthcare proxy invoked, daughter Pia Martínez is hcp,notified registered nurse hh case manager DVT prophylaxis-renally adjusted Lovenox Full code Patient requires continued inpatient stay for management of acute syncopal episode and acute kidney injury related to dehydration and UTI requiring close monitoring of hemodynamics. Quality Stroke Does the patient have a stroke diagnosis?: No VTE Prior VTE?: No VTE Risk Level:: Medical - moderate - high VTE Device Contraindication: Treatment Not Indicated VTE Drug Contraindication: N/A - Med Ordered
[2024-03-20 17:02] LABS: Glucose, Whole Blood 168 mg/dL (60-115)
[2024-03-20 19:50] LABS: Glucose, Whole Blood 132 mg/dL (60-115)
[2024-03-20] MEDS: Sennosides 8.6 MG TABLET 17.2 MG PO (20:09)
[2024-03-20] MEDS: Enoxaparin Sodium 30 MG/0.3 ML SYRINGE SUBCUT (20:09)
[2024-03-21] VITALS (8 sets, daily range): BP systolic 128–171; BP diastolic 55–83; PULSE 51–66; RESP 18–21; TEMP 36.4–37.1; O2SAT 96–100
[2024-03-21 07:09] LABS: Glucose, Whole Blood 95 mg/dL (60-115)
[2024-03-21] MEDS: carvediloL 6.25 MG TABLET PO ×2 (10:33→20:23)
[2024-03-21] MEDS: lisinopriL 10 MG TABLET PO (10:33)
[2024-03-21] MEDS: 0.9 % Sodium Chloride Flush 3 ML SYRINGE IVFLUSH ×2 (10:34→17:03)
[2024-03-21] MEDS: NIFEdipine ER 30 MG TAB.ER.24 PO (10:34)
[2024-03-21 10:59] LABS: Glucose, Whole Blood 204 mg/dL (60-115)
[2024-03-21] MEDS: Insulin Lispro 100 UNIT/ML 3 ML VIAL SUBCUT ×2 (12:22→20:25)
--- NOTE | 2024-03-21 15:29 | HO.PM.IMPN ---
Subjective Subjective Date of Service: 03/21/24 Interval History: Offers no acute complaints sitting comfortably tolerating diet 75%, says no to dizziness or lightheadedness, no acute events overnight, urine clear. Review of Systems All other system reviewed and are negative Physical Exam Vital Signs: Vital Signs: Last Vital Signs Temp 97.8 F 03/21/24 15:25 Pulse 65 03/21/24 15:25 Resp 20 03/21/24 15:25 BP 128/55 L 03/21/24 15:25 Pulse Ox 98 03/21/24 15:25 O2 Del Method Room Air 03/21/24 15:25 BMI result Body Mass Index 21.6 Const: Other: General resting comfortably in no acute distress. Anicteric sclera Neck no JVD. CVS regular rate rhythm, Respiratory lungs clear to auscultation, no respiratory distress, no wheeze, no rhonchi. Gastrointestinal abdomen soft, non tender, bowel sounds audible Left forearm ecchymotic lesions and superficial abrasions improved, full range of motion left elbow Extremities no LE edema. Neuro non focal , speech clear. Objective Data Active Medications Acetaminophen (Acetaminophen 325 Mg Tablet) 650 mg PO Q6H PRN PRN Reason: Pain, Mild (Pain Scale 1-3), fever or headache Calcium Carbonate (Calcium Carbonate 750 Mg Tab.Chew) 750 mg PO Q4H PRN PRN Reason: Heartburn Carvedilol (Carvedilol 6.25 Mg Tablet) 6.25 mg PO BID [facility]END[facility] TO [facility]; Protocol Last Admin: 03/21/24 10:33 Dose: 6.25 mg Documented By: KI Enoxaparin Sodium (Enoxaparin Sodium 30 Mg/0.3 Ml Syringe) 30 mg SUBCUT Q24H [facility] Last Admin: 03/20/24 20:09 Dose: 30 mg Documented By: EVARISTO Glucose (Glucose Gel 15 Gm Gel..Gram.) 15 gm PO Q15M PRN; Protocol PRN Reason: per Hypoglycemia Standing Ord. Dextrose (D10) 250 mls @ 750 mls/hr IV Q15M PRN; Protocol PRN Reason: per Hypoglycemia Standing Ord. Insulin Human Lispro (Insulin Lispro 100 Unit/Ml 3 Ml Vial) 0 unit SUBCUT QIDACHS [facility] TO [facility]; Protocol Last Admin: 03/21/24 12:22 Dose: 4 unit Documented By: KI Lisinopril (Lisinopril 10 Mg Tablet) 10 mg PO DAILY [facility]; Protocol Last Admin: 03/21/24 10:33 Dose: 10 mg Documented By: KI Lorazepam (Lorazepam 0.5 Mg Tablet) 0.5 mg PO BEDTIME PRN PRN Reason: anxiety Magnesium Hydroxide (Milk Of Magnesia 30 Ml Oral.Susp) 30 ml PO DAILY PRN PRN Reason: Constipation Melatonin (Melatonin 3 Mg Tablet) 6 mg PO BEDTIME PRN PRN Reason: Insomnia Nifedipine (Nifedipine Er 30 Mg Tab.Er.24) 30 mg PO DAILY [facility]; Protocol Last Admin: 03/21/24 10:34 Dose: 30 mg Documented By: KI Ondansetron HCl (Ondansetron Hcl 4 Mg/2 Ml Vial) 4 mg IVPUSH Q8H PRN PRN Reason: Nausea and Vomiting Last Admin: 03/15/24 22:32 Dose: 4 mg Documented By: EVARISTO Polyethylene Glycol (Polyethylene Glycol 3350 17 Gm Powd.Pack) 17 gm PO DAILY [facility] Last Admin: 03/21/24 10:35 Dose: Not Given Documented By: KI Non-Admin Reason: Patient Refused Senna (Sennosides 8.6 Mg Tablet) 17.2 mg PO BEDTIME [facility] Last Admin: 03/20/24 20:09 Dose: 17.2 mg Documented By: EVARISTO Sodium Chloride (0.9 % Sodium Chloride Flush 3 Ml Syringe) 3 ml IVFLUSH QSHIFT [facility] Last Admin: 03/21/24 10:34 Dose: 3 ml Documented By: KI Trazodone HCl (Trazodone Hcl 25 Mg Halftab) 25 mg PO BEDTIME PRN PRN Reason: insomnia Labs 03/13/24 04:51 03/18/24 05:22 Labs: Laboratory Results - last 24 hr 03/20/24 03/20/24 03/21/24 16:57 19:23 06:57 POC Glucose 168 H 132 H 95 03/21/24 10:54 POC Glucose 204 H Assessment and Plan (1) Acute kidney injury: Status: Acute (2) Urinary tract infection: Status: Acute (3) Syncope and collapse: Status: Acute Plan 70-year-old female with history of xwa-qiunswl-xlientnor type 2 diabetes, hypertension, history of CVA, CKD stage 3, history of complete heart block s/p pacemaker placement, diabetic polyneuropathy, mood disorder admitted for further management of acute syncopal episode and RENÉE related to dehydration with uti #Acute syncopal episode -intermittent dizziness, normal orthostatic BP , less positional drop in systolic BP, ? autonomic dysfunction -Head ct negative for acute intracranial abnormality but shows chronic microangiopathy, volume loss, and chronic lacunar infarcts -no acute osseous abnormality on cervical spine CT, pelvis x-ray, hand x-ray -ekg shows AV dual paced rhythm , trop wnl -no arrhythmia on tele monitor -decrease dose of nifedipine to 30 mg , added lisinopril , ellie stockings, with better blood pressure control -PT recommend short-term rehab, due to persistent dizziness/orthostatic BP. #Acute UTI -urine culture grew E coli sensitive to ceftriaxone, finished course of antibiotic. # acute on chronic kidney disease stage 3b -likely prerenal in the setting of acute dehydration/hypovolemia and infection -creatinine improved from 1.9 to 1.34 (at baseline) -avoid nephrotoxins -seen by nephrology they recommend to avoid to low blood pressures and agree with lisinopril . # uqc-vrrdwdw-cnzkiczgr type 2 diabetes -stable blood sugars continue diabetic diet and insulin sliding scale. Not on home medications, check hemoglobin A1c. # hypertension -continue carvedilol, and nifedipine dose adjusted, added lisinopril , BP continued to fluctuate monitor BP avoid hypotension. # history of complete heart block s/p pacemaker placement -EKG shows AV dual paced rhythm with PVCs, no arrhythmia on tele monitor # CVA history/ HLD -statin discontinued LDL 44 recommend to repeat lipid profile in 3-4 months # Cognitive impairment likely vascular dementia CT head showed diffuse volume loss with moderate chronic microangiopathy, B12 493, TSH 0.92, folate normal case discussed in detail with patient's daughter Pia Martínez HCP [phone], as per daughter her mentation is gradually declining since CVA in 09/15, daughter goes to all appointments with her since she is unable to provide history, she is alone at home during daytime, she is dependent on all ADLs, at times gets angry and aggravated, patient confabulates and provide history that she lives home in a 2 story building with her who is , daughter wishes patient to be discharged to rehab facility . healthcare proxy invoked, daughter Pia Martínez is hcp. DVT prophylaxis-renally adjusted Lovenox Full code Patient requires continued inpatient stay for management of fluctuating blood pressures and blood sugars and safe disposition Quality Stroke Does the patient have a stroke diagnosis?: No VTE Prior VTE?: No VTE Risk Level:: Medical - moderate - high VTE Device Contraindication: Treatment Not Indicated VTE Drug Contraindication: N/A - Med Ordered
[2024-03-21 16:21] LABS: Glucose, Whole Blood 78 mg/dL (60-115)
[2024-03-21 19:57] LABS: Glucose, Whole Blood 236 mg/dL (60-115)
[2024-03-21] MEDS: Enoxaparin Sodium 30 MG/0.3 ML SYRINGE SUBCUT (20:27)
[2024-03-22] VITALS (7 sets, daily range): BP systolic 138–161; BP diastolic 61–75; PULSE 59–67; RESP 18–20; TEMP 35.6–37.1; O2SAT 96–99
[2024-03-22] MEDS: 0.9 % Sodium Chloride Flush 3 ML SYRINGE IVFLUSH ×4 (01:59→23:47)
--- NOTE | 2024-03-22 06:44 | PC.NURSE ---
Assumed care of patient since 1844 on 03/21/24. Patient had a good night of sleep. 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 A Paced on hose cementer. VSS.
[2024-03-22 07:10] LABS: Glucose, Whole Blood 88 mg/dL (60-115)
[2024-03-22 07:19] LABS: Estimated Average Glucose 134 mg/dL; Hemoglobin A1c % 6.3 % (<6.0)
[2024-03-22] MEDS: lisinopriL 10 MG TABLET PO (07:49)
[2024-03-22] MEDS: carvediloL 6.25 MG TABLET PO ×2 (07:49→22:37)
[2024-03-22] MEDS: NIFEdipine ER 30 MG TAB.ER.24 PO (07:49)
--- NOTE | 2024-03-22 10:14 | MHC.CM.PN ---
Per Hien @ [facility], insurance is looking for further documentation, from MD, that Patient is stable for dc; CM has informed MD and CM will forward today's MD PN to SNF nery.
--- NOTE | 2024-03-22 10:19 | P.PNIM_ITS ---
Subjective Subjective Date of Service: 03/22/24 Interval History: Admitted for syncope/RENÉE and UTI All medical issues resolved, patient finished course of antibiotic, no dizziness stable blood pressure has been tolerating diet, no acute events overnight. Review of Systems All other system reviewed and negative. Physical Exam 2 Vital Signs: Vital Signs: Last Vital Signs Temp 98.7 F 03/22/24 07:22 Pulse 65 03/22/24 07:22 Resp 18 03/22/24 07:22 BP 160/66 H 03/22/24 07:22 Pulse Ox 98 03/22/24 07:22 O2 Del Method Room Air 03/22/24 07:22 BMI result Body Mass Index 21.6 Const: Other: General resting comfortably in no acute distress. Anicteric sclera Neck no JVD. CVS regular rate rhythm, Respiratory lungs clear to auscultation, no respiratory distress, no wheeze, no rhonchi. Gastrointestinal abdomen soft, non tender, bowel sounds audible Left forearm dry scabs, no open wounds, ecchymosis left wrist Extremities no LE edema. Neuro non focal , speech clear. Objective Data Active Medications Acetaminophen (Acetaminophen 325 Mg Tablet) 650 mg PO Q6H PRN PRN Reason: Pain, Mild (Pain Scale 1-3), fever or headache Calcium Carbonate (Calcium Carbonate 750 Mg Tab.Chew) 750 mg PO Q4H PRN PRN Reason: Heartburn Carvedilol (Carvedilol 6.25 Mg Tablet) 6.25 mg PO BID [facility]; Protocol Last Admin: 03/22/24 07:49 Dose: 6.25 mg Documented By: ASTER Enoxaparin Sodium (Enoxaparin Sodium 30 Mg/0.3 Ml Syringe) 30 mg SUBCUT Q24H [facility] Last Admin: 03/21/24 20:27 Dose: 30 mg Documented By: MAGALYS Glucose (Glucose Gel 15 Gm Gel..Gram.) 15 gm PO Q15M PRN; Protocol PRN Reason: per Hypoglycemia Standing Ord. Dextrose (D10) 250 mls @ 750 mls/hr IV Q15M PRN; Protocol PRN Reason: per Hypoglycemia Standing Ord. Insulin Human Lispro (Insulin Lispro 100 Unit/Ml 3 Ml Vial) 0 unit SUBCUT QIDACHS [facility]; Protocol Last Admin: 03/22/24 07:00 Dose: Not Given Documented By: ASTER Non-Admin Reason: No Insulin Coverage Lisinopril (Lisinopril 10 Mg Tablet) 10 mg PO DAILY [facility]; Protocol Last Admin: 03/22/24 07:49 Dose: 10 mg Documented By: ASTER Lorazepam (Lorazepam 0.5 Mg Tablet) 0.5 mg PO BEDTIME PRN PRN Reason: anxiety Magnesium Hydroxide (Milk Of Magnesia 30 Ml Oral.Susp) 30 ml PO DAILY PRN PRN Reason: Constipation Melatonin (Melatonin 3 Mg Tablet) 6 mg PO BEDTIME PRN PRN Reason: Insomnia Nifedipine (Nifedipine Er 30 Mg Tab.Er.24) 30 mg PO DAILY [facility]; Protocol Last Admin: 03/22/24 07:49 Dose: 30 mg Documented By: ASTER Ondansetron HCl (Ondansetron Hcl 4 Mg/2 Ml Vial) 4 mg IVPUSH Q8H PRN PRN Reason: Nausea and Vomiting Last Admin: 03/15/24 22:32 Dose: 4 mg Documented By: EVARISTO Polyethylene Glycol (Polyethylene Glycol 3350 17 Gm Powd.Pack) 17 gm PO DAILY [facility] Last Admin: 03/22/24 07:17 Dose: Not Given Documented By: ASTER Non-Admin Reason: Patient Refused Senna (Sennosides 8.6 Mg Tablet) 17.2 mg PO BEDTIME [facility] Last Admin: 03/21/24 20:25 Dose: Not Given Documented By: MAGALYS Non-Admin Reason: Patient Refused Sodium Chloride (0.9 % Sodium Chloride Flush 3 Ml Syringe) [facility] Last Admin: 03/22/24 07:52 Dose: 3 ml Documented By: ASTER Trazodone HCl (Trazodone Hcl 25 Mg Halftab) 25 mg PO BEDTIME PRN PRN Reason: insomnia Labs 03/13/24 04:51 03/18/24 05:22 Labs: Laboratory Results - last 24 hr 03/21/24 03/21/24 03/21/24 10:54 16:15 19:43 POC Glucose 204 H 78 236 H Estimat Average Glucose Hemoglobin A1c % 03/22/24 03/22/24 06:18 06:58 POC Glucose 88 Estimat Average Glucose 134 Hemoglobin A1c % 6.3 H Assessment and Plan (1) Acute kidney injury: Status: Acute (2) Urinary tract infection: Status: Acute (3) Syncope and collapse: Status: Acute Plan 70-year-old female with history of tbr-ennwico-butgjctap type 2 diabetes, hypertension, history of CVA, CKD stage 3, history of complete heart block s/p pacemaker placement, diabetic polyneuropathy, mood disorder admitted for further management of acute syncopal episode and RENÉE related to dehydration with uti #Acute syncopal episode -dizziness resolved, normal orthostatic blood pressures, syncope was likely due to dehydration with autonomic dysfunction with drop in sbp with unchanged pulse resolved with fluids. -Head ct negative for acute intracranial abnormality but shows chronic microangiopathy, volume loss, and chronic lacunar infarcts -no acute osseous abnormality on cervical spine CT, pelvis x-ray, hand x-ray -ekg shows AV dual paced rhythm , trop wnl -no arrhythmia on tele monitor -continue current dose of nifedipine, lisinopril and Coreg -PT recommend short-term rehab, dizziness and lightheadedness resolved, will require short-term rehab to reduce impairments and maximize function. #Acute UTI -urine culture grew E coli sensitive to ceftriaxone, finished course of antibiotic. # acute on chronic kidney disease stage 3b -likely prerenal in the setting of acute dehydration/hypovolemia and infection, creatinine improved from 1.9-1.34 at baseline Recommend outpatient Nephrology follow-up # yls-hceornq-uqdrscqgm type 2 diabetes -stable blood sugars continue diabetic diet and insulin sliding scale. Not on home medications, hemoglobin A1c.6.3 # hypertension -continue carvedilol, nifedipine and lisinopril, acceptable blood pressure control # history of complete heart block s/p pacemaker placement -EKG shows AV dual paced rhythm with PVCs, no arrhythmia on tele monitor. # CVA history/ HLD -statin discontinued LDL 44 recommend to repeat lipid profile in 3-4 months # Cognitive impairment likely vascular dementia CT head showed diffuse volume loss with moderate chronic microangiopathy, B12 493, TSH 0.92, folate normal, Healthcare proxy invoked daughter is healthcare proxy DVT prophylaxis-renally adjusted Lovenox Full code Patient requires continued inpatient stay for safe disposition and monitoring of vitals and labs. Quality Stroke Does the patient have a stroke diagnosis?: No VTE Prior VTE?: No VTE Risk Level:: Medical - moderate - high VTE Device Contraindication: Treatment Not Indicated VTE Drug Contraindication: N/A - Med Ordered
[2024-03-22 11:03] LABS: Glucose, Whole Blood 166 mg/dL (60-115)
--- NOTE | 2024-03-22 12:09 | MHC.CM.PN ---
CM has sent today's MD PN to Hien @ [facility] and await today's PT note.
[2024-03-22] MEDS: Insulin Lispro 100 UNIT/ML 3 ML VIAL SUBCUT ×2 (12:33→16:38)
--- NOTE | 2024-03-22 13:05 | MHC.CM.PN ---
Today's PT PN has been sent to Hien @ [facility]. CM will follow.
--- NOTE | 2024-03-22 14:55 | MHC.CM.PN ---
KARIN spoke with Ariane from [facility] @ [facility] @ [phone], who spoke with Patient's insurance. Per Ariane, insurance is not accepting the PT Eval(insurance states that it does not ensure stability/feels patient will not be successful with therapy r/t frequent refusals).Ariane is requesting a peer to peer and she is aware that CM is only here until 4:30 PM. CM will follow.
--- NOTE | 2024-03-22 15:35 | MHC.CM.PN ---
With 's permission, KARIN has provided [place] [facility] with 's phone number, should the Peer to Peer need to take place after 4:30 PM today. KARIN will follow.
[2024-03-22 16:29] LABS: Glucose, Whole Blood 184 mg/dL (60-115)
[2024-03-22 20:08] LABS: Glucose, Whole Blood 105 mg/dL (60-115)
[2024-03-22] MEDS: Enoxaparin Sodium 30 MG/0.3 ML SYRINGE SUBCUT (22:36)
[2024-03-23 04:00] VITALS: BP 157/79; PULSE 60; RESP 20; TEMP 36.2; O2SAT 98
[2024-03-23 07:02] VITALS: BP 142/69; PULSE 61; RESP 18; TEMP 36.5; O2SAT 99
[2024-03-23 07:11] LABS: Glucose, Whole Blood 92 mg/dL (60-115)
--- NOTE | 2024-03-23 07:36 | PC.NURSE ---
Patient received in bed around 1845. AAOX3. No event reported overnight. Patient remains calm and cooperative. Medications taken whole with water. Assisted with incontinence care. A Paced on asset protection professional. VSS. Safety precautions in place. No signs of distress reported.
[2024-03-23] MEDS: polyethylene glycoL 3350 17 GM POWD.PACK PO (08:50)
[2024-03-23] MEDS: lisinopriL 10 MG TABLET PO (08:52)
[2024-03-23] MEDS: carvediloL 6.25 MG TABLET PO ×2 (08:52→20:43)
[2024-03-23] MEDS: NIFEdipine ER 30 MG TAB.ER.24 PO (08:52)
[2024-03-23 11:07] VITALS: BP 131/67; PULSE 63; RESP 18; TEMP 37; O2SAT 97
[2024-03-23 11:27] LABS: Glucose, Whole Blood 217 mg/dL (60-115)
[2024-03-23] MEDS: Insulin Lispro 100 UNIT/ML 3 ML VIAL SUBCUT ×2 (11:35→20:43)
--- NOTE | 2024-03-23 11:43 | HO.PM.IMPN ---
Subjective Subjective Date of Service: 03/23/24 Interval History: seen and examined this morning follow up for syncope/renée/UTI resolved feeling well this am no sob, no dizziness Review of Systems Review of Systems: Yes all other systems are reviewed and are negative Constitutional Constitutional: Denies chills and Denies fever(s) Cardiovascular Cardiovascular: Denies chest pain and Denies palpitations Endocrine Endocrine: Denies palpitations Physical Exam Vital Signs: Vital Signs: Last Vital Signs Temp 98.6 F 03/23/24 11:07 Pulse 63 03/23/24 11:07 Resp 18 03/23/24 11:07 BP 131/67 03/23/24 11:07 Pulse Ox 97 03/23/24 11:07 O2 Del Method Room Air 03/23/24 11:07 BMI result Body Mass Index 21.6 Const: General: cooperative, comfortable, alert and awake Nutritional Appearance: average body habitus Resp: Effort & Inspection: normal respiratory effort, able to speak in complete sentences, no respiratory distress and no use of accessory muscles Cardio: Rate: regular rate GI: Inspection: No distended Palpation (GI): Soft to palpation and nontender Neuro: General: moves all extremities and CN's II-XI intact bilaterally Extrem: General: Yes no pedal edema Objective Data Active Medications Acetaminophen (Acetaminophen 325 Mg Tablet) 650 mg PO Q6H PRN PRN Reason: Pain, Mild (Pain Scale 1-3), fever or headache Calcium Carbonate (Calcium Carbonate 750 Mg Tab.Chew) 750 mg PO Q4H PRN PRN Reason: Heartburn Carvedilol (Carvedilol 6.25 Mg Tablet) 6.25 mg PO BID [facility]; Protocol Last Admin: 03/23/24 08:52 Dose: 6.25 mg Documented By: LIZZETH Enoxaparin Sodium (Enoxaparin Sodium 30 Mg/0.3 Ml Syringe) 30 mg SUBCUT Q24H [facility] Last Admin: 03/22/24 22:36 Dose: 30 mg Documented By: MAGALYS Glucose (Glucose Gel 15 Gm Gel..Gram.) 15 gm PO Q15M PRN; Protocol PRN Reason: per Hypoglycemia Standing Ord. Dextrose (D10) 250 mls @ 750 mls/hr IV Q15M PRN; Protocol PRN Reason: per Hypoglycemia Standing Ord. Insulin Human Lispro (Insulin Lispro 100 Unit/Ml 3 Ml Vial) 0 unit SUBCUT QIDACHS [facility]; Protocol Last Admin: 03/23/24 11:35 Dose: 4 unit Documented By: LIZZETH Lisinopril (Lisinopril 10 Mg Tablet) 10 mg PO DAILY [facility]; Protocol Last Admin: 03/23/24 08:52 Dose: 10 mg Documented By: LIZZETH Lorazepam (Lorazepam 0.5 Mg Tablet) 0.5 mg PO BEDTIME PRN PRN Reason: anxiety Magnesium Hydroxide (Milk Of Magnesia 30 Ml Oral.Susp) 30 ml PO DAILY PRN PRN Reason: Constipation Melatonin (Melatonin 3 Mg Tablet) 6 mg PO BEDTIME PRN PRN Reason: Insomnia Nifedipine (Nifedipine Er 30 Mg Tab.Er.24) 30 mg PO DAILY [facility]; Protocol Last Admin: 03/23/24 08:52 Dose: 30 mg Documented By: LIZZETH Ondansetron HCl (Ondansetron Hcl 4 Mg/2 Ml Vial) 4 mg IVPUSH Q8H PRN PRN Reason: Nausea and Vomiting Last Admin: 03/15/24 22:32 Dose: 4 mg Documented By: EVARISTO Polyethylene Glycol (Polyethylene Glycol 3350 17 Gm Powd.Pack) 17 gm PO DAILY [facility] Last Admin: 03/23/24 08:50 Dose: 17 gm Documented By: LIZZETH Senna (Sennosides 8.6 Mg Tablet) 17.2 mg PO BEDTIME [facility] Last Admin: 03/22/24 22:30 Dose: Not Given Documented By: MAGALYS Non-Admin Reason: Patient Refused Sodium Chloride (0.9 % Sodium Chloride Flush 3 Ml Syringe) 3 ml IVFLUSH QSHIFT [facility] Last Admin: 03/23/24 07:27 Dose: Not Given Documented By: LIZZETH Non-Admin Reason: Previously Administered Trazodone HCl (Trazodone Hcl 25 Mg Halftab) 25 mg PO BEDTIME PRN PRN Reason: insomnia Labs 03/13/24 04:51 03/18/24 05:22 Labs: Laboratory Results - last 24 hr 03/22/24 03/22/24 03/23/24 16:24 20:04 06:50 POC Glucose 184 H 105 92 03/23/24 10:58 POC Glucose 217 H Assessment and Plan (1) Urinary tract infection: Status: Acute Plan This is a 70-year-old female with history of bau-rpjfbyh-kordzllba type 2 diabetes, hypertension, history of CVA, CKD stage 3, history of complete heart block s/p pacemaker placement, diabetic polyneuropathy, mood disorder admitted for further management of acute syncopal episode and RENÉE related to dehydration with uti #Acute syncopal episode -dizziness resolved, normal orthostatic blood pressures, syncope was likely due to dehydration with autonomic dysfunction with drop in sbp with unchanged pulse resolved with fluids. -Head ct negative for acute intracranial abnormality but shows chronic microangiopathy, volume loss, and chronic lacunar infarcts -no acute osseous abnormality on cervical spine CT, pelvis x-ray, hand x-ray -ekg shows AV dual paced rhythm , trop wnl -no arrhythmia on tele monitor -continue current dose of nifedipine, lisinopril and Coreg -PT recommend short-term rehab, dizziness and lightheadedness resolved, will require short-term rehab to reduce impairments and maximize function. #Acute UTI -urine culture grew E coli sensitive to ceftriaxone, finished course of antibiotic. # acute on chronic kidney disease stage 3b -likely prerenal in the setting of acute dehydration/hypovolemia and infection, creatinine improved from 1.9-1.34 at baseline Recommend outpatient Nephrology follow-up # ucm-knliuxp-duvuscgpe type 2 diabetes -stable blood sugars continue diabetic diet and insulin sliding scale. Not on home medications, hemoglobin A1c.6.3 # hypertension -continue carvedilol, nifedipine and lisinopril, acceptable blood pressure control # history of complete heart block s/p pacemaker placement -EKG shows AV dual paced rhythm with PVCs, no arrhythmia on tele monitor. # CVA history/ HLD -statin discontinued LDL 44 recommend to repeat lipid profile in 3-4 months # Cognitive impairment likely vascular dementia CT head showed diffuse volume loss with moderate chronic microangiopathy, B12 493, TSH 0.92, folate normal, Healthcare proxy invoked daughter is healthcare proxy DVT prophylaxis-renally adjusted Lovenox Full code Patient requires continued inpatient stay for safe disposition and monitoring of vitals and labs. Quality Stroke Does the patient have a stroke diagnosis?: No VTE Prior VTE?: No VTE Risk Level:: Medical - moderate - high VTE Device Contraindication: Treatment Not Indicated VTE Drug Contraindication: N/A - Med Ordered
--- NOTE | 2024-03-23 15:27 | MHC.CM.PN ---
Pt remains medically cleared for discharge, pending insurance auth for STR. Per [facility] [place], the insurance is escalating things to their MD, and it will likely be denied. Once that happens a peer to peer can be done, and they will let us know. Hospitalist aware.
[2024-03-23 15:41] VITALS: BP 131/58; PULSE 59; RESP 18; TEMP 36.7; O2SAT 97
[2024-03-23 15:55] LABS: Glucose, Whole Blood 107 mg/dL (60-115)
[2024-03-23 19:21] VITALS: BP 114/73; PULSE 58; RESP 18; TEMP 36.6; O2SAT 98
[2024-03-23 20:21] LABS: Glucose, Whole Blood 217 mg/dL (60-115)
[2024-03-23] MEDS: Enoxaparin Sodium 30 MG/0.3 ML SYRINGE SUBCUT (20:42)
[2024-03-23 20:43] VITALS: BP 114/73; PULSE 58
[2024-03-24] VITALS: BP 116/57; PULSE 65; RESP 18; TEMP 36.4; O2SAT 98
[2024-03-24] MEDS: 0.9 % Sodium Chloride Flush 3 ML SYRINGE IVFLUSH (00:42)
[2024-03-24 04:00] VITALS: BP 135/64; PULSE 60; RESP 18; TEMP 36.4; O2SAT 99
[2024-03-24 07:16] VITALS: BP 173/74; PULSE 61; RESP 18; TEMP 36.5; O2SAT 100
[2024-03-24 07:25] LABS: Glucose, Whole Blood 95 mg/dL (60-115)
[2024-03-24] MEDS: lisinopriL 10 MG TABLET PO (08:51)
[2024-03-24] MEDS: carvediloL 6.25 MG TABLET PO (08:51)
[2024-03-24] MEDS: NIFEdipine ER 30 MG TAB.ER.24 PO (08:51)
[2024-03-24] MEDS: polyethylene glycoL 3350 17 GM POWD.PACK PO (08:52)
--- NOTE | 2024-03-24 09:37 | MHC.CM.PN ---
Addendum entered by Becca Hernandez RN 03/24/24 16:42: [facility], [place], operated by [facility] has received auth and pt will dc at 6pm via [facility], karin contacted pt's dtr Pia after several attempts at [phone], IMM 03/24/24 to be sent via certified mail, Pia is aware she will need to sign pt in to facility and was provided w/address and phone number of snf. Addendum entered by Becca Hernandez RN 03/24/24 11:35: PEER TO PEER COMPLETED, PT'S INSURANCE REQUESTING UPDATED PT NOTE WHICH HAS BEEN SENT ALONG W/UPDATED CLINICALS TO [facility], THEY HAVE RECEIVED IT AND ARE UPLOADING TO INSURANCE COMPANY, ANTIC WE WILL HAVE AN ANSWER TODAY, KARINWILL CONT TO FOLLOW. Original Note: KARIN RECEIVED CALL FROM PT'S [facility] INSURANCE REQUESTING PEER TO PEER BE DONE BY 1:30PM TODAY AND FOR HOSPITALIST TO CALL [phone] OPTION 5 FOR SCULPTURE CONSERVATOR, INFO SENT TO KARIN RON WILL CONT TO FOLLOW.
[2024-03-24 10:52] LABS: Glucose, Whole Blood 244 mg/dL (60-115)
[2024-03-24 11:02] VITALS: BP 173/74; PULSE 61; O2SAT 100
[2024-03-24 11:12] VITALS: BP 147/68; PULSE 62; RESP 18; TEMP 36.3; O2SAT 99
[2024-03-24] MEDS: Insulin Lispro 100 UNIT/ML 3 ML VIAL SUBCUT ×2 (11:18→16:22)
--- NOTE | 2024-03-24 13:29 | P.PNIM_ITS ---
Subjective Subjective Date of Service: 03/24/24 Interval History: Seen and examined this morning Follow-up for syncope, RENÉE, UTI Awaiting safe disposition overnight, no specific complaints this morning, tolerating diet Review of Systems Review of Systems: Yes all other systems are reviewed and are negative Constitutional Constitutional: Denies chills and Denies fever(s) Cardiovascular Cardiovascular: Denies chest pain, Denies palpitations and Denies dyspnea Respiratory Respiratory: Denies cough and Denies dyspnea Gastrointestinal Gastrointestinal: Denies abdominal pain Endocrine Endocrine: Denies palpitations Physical Exam 2 Vital Signs: Vital Signs: Last Vital Signs Temp 97.4 F 03/24/24 11:12 Pulse 62 03/24/24 11:12 Resp 18 03/24/24 11:12 BP 147/68 H 03/24/24 11:12 Pulse Ox 99 03/24/24 11:12 O2 Del Method Room Air 03/24/24 11:12 BMI result Body Mass Index 21.6 Const: General: cooperative, comfortable, alert and awake Nutritional Appearance: average body habitus Resp: Effort & Inspection: normal respiratory effort, able to speak in complete sentences, no respiratory distress and no use of accessory muscles Cardio: Rate: regular rate GI: Inspection: No distended Palpation (GI): Soft to palpation and nontender Neuro: General: moves all extremities and CN's II-XI intact bilaterally Extrem: General: Yes no pedal edema Objective Data Active Medications Acetaminophen (Acetaminophen 325 Mg Tablet) 650 mg PO Q6H PRN PRN Reason: Pain, Mild (Pain Scale 1-3), fever or headache Calcium Carbonate (Calcium Carbonate 750 Mg Tab.Chew) 750 mg PO Q4H PRN PRN Reason: Heartburn Carvedilol (Carvedilol 6.25 Mg Tablet) 6.25 mg PO BID [facility]; Protocol Last Admin: 03/24/24 08:51 Dose: 6.25 mg Documented By: LIZZETH Enoxaparin Sodium (Enoxaparin Sodium 30 Mg/0.3 Ml Syringe) 30 mg SUBCUT Q24H [facility] Last Admin: 03/23/24 20:42 Dose: 30 mg Documented By: MAGALYS Glucose (Glucose Gel 15 Gm Gel..Gram.) 15 gm PO Q15M PRN; Protocol PRN Reason: per Hypoglycemia Standing Ord. Dextrose (D10) 250 mls @ 750 mls/hr IV Q15M PRN; Protocol PRN Reason: per Hypoglycemia Standing Ord. Insulin Human Lispro (Insulin Lispro 100 Unit/Ml 3 Ml Vial) 0 unit SUBCUT QIDACHS [facility]; Protocol Last Admin: 03/24/24 11:18 Dose: 4 unit Documented By: LIZZETH Lisinopril (Lisinopril 10 Mg Tablet) 10 mg PO DAILY [facility]; Protocol Last Admin: 03/24/24 08:51 Dose: 10 mg Documented By: LIZZETH Lorazepam (Lorazepam 0.5 Mg Tablet) 0.5 mg PO BEDTIME PRN PRN Reason: anxiety Magnesium Hydroxide (Milk Of Magnesia 30 Ml Oral.Susp) 30 ml PO DAILY PRN PRN Reason: Constipation Melatonin (Melatonin 3 Mg Tablet) 6 mg PO BEDTIME PRN PRN Reason: Insomnia Nifedipine (Nifedipine Er 30 Mg Tab.Er.24) 30 mg PO DAILY [facility]; Protocol Last Admin: 03/24/24 08:51 Dose: 30 mg Documented By: LIZZETH Ondansetron HCl (Ondansetron Hcl 4 Mg/2 Ml Vial) 4 mg IVPUSH Q8H PRN PRN Reason: Nausea and Vomiting Last Admin: 03/15/24 22:32 Dose: 4 mg Documented By: EVARISTO Polyethylene Glycol (Polyethylene Glycol 3350 17 Gm Powd.Pack) 17 gm PO DAILY [facility] Last Admin: 03/24/24 08:52 Dose: 17 gm Documented By: LIZZETH Senna (Sennosides 8.6 Mg Tablet) 17.2 mg PO BEDTIME [facility] Last Admin: 03/23/24 20:36 Dose: Not Given Documented By: MAGALYS Non-Admin Reason: Patient Refused Sodium Chloride (0.9 % Sodium Chloride Flush 3 Ml Syringe) 3 ml IVFLUSH QSHIFT [facility] Last Admin: 03/24/24 07:03 Dose: Not Given Documented By: LIZZETH Non-Admin Reason: Previously Administered Trazodone HCl (Trazodone Hcl 25 Mg Halftab) 25 mg PO BEDTIME PRN PRN Reason: insomnia Labs 03/13/24 04:51 03/18/24 05:22 Labs: Laboratory Results - last 24 hr 03/23/24 03/23/24 03/24/24 15:52 20:18 07:15 POC Glucose 107 217 H 95 03/24/24 10:48 POC Glucose 244 H Assessment and Plan (1) Acute kidney injury: Status: Acute Plan This is a 70-year-old female with history of [id number] type 2 diabetes, hypertension, history of CVA, CKD stage 3, history of complete heart block s/p pacemaker placement, diabetic polyneuropathy, mood disorder admitted for further management of acute syncopal episode and RENÉE related to dehydration with uti Acute syncopal episode -dizziness resolved, normal orthostatic blood pressures, syncope was likely due to dehydration with autonomic dysfunction with drop in sbp with unchanged pulse which resolved with fluids. -Head ct negative for acute intracranial abnormality but shows chronic microangiopathy, volume loss, and chronic lacunar infarcts -no acute osseous abnormality on cervical spine CT, pelvis x-ray, hand x-ray -ekg shows AV dual paced rhythm , trop wnl -no arrhythmia on tele monitor -continue current dose of nifedipine, lisinopril and Coreg -PT recommend short-term rehab, dizziness and lightheadedness resolved, will require short-term rehab to reduce impairments and maximize function. Acute UTI -urine culture grew E coli sensitive to ceftriaxone, finished course of antibiotic. acute on chronic kidney disease stage 3b -likely prerenal in the setting of acute dehydration/hypovolemia and infection, creatinine improved from 1.9-1.34 at baseline Recommend outpatient Nephrology follow-up tym-gxzmhyt-quqtxsvce type 2 diabetes -stable blood sugars continue diabetic diet and insulin sliding scale. Not on home medications, hemoglobin A1c.6.3 hypertension -continue carvedilol, nifedipine and lisinopril, acceptable blood pressure control history of complete heart block s/p pacemaker placement -EKG shows AV dual paced rhythm with PVCs, no arrhythmia on tele monitor. CVA history/ HLD - statin discontinued LDL 44 recommend to repeat lipid profile in 3-4 months Cognitive impairment likely vascular dementia CT head showed diffuse volume loss with moderate chronic microangiopathy, B12 493, TSH 0.92, folate normal. Healthcare proxy invoked daughter is healthcare proxy DVT prophylaxis-renally adjusted Lovenox Full code Patient requires continued inpatient stay for safe disposition and monitoring of vitals and labs. Quality Stroke Does the patient have a stroke diagnosis?: No VTE Prior VTE?: No VTE Risk Level:: Medical - moderate - high VTE Device Contraindication: Treatment Not Indicated VTE Drug Contraindication: N/A - Med Ordered
[2024-03-24 15:31] VITALS: BP 107/62; PULSE 60; RESP 18; TEMP 36.3; O2SAT 98
--- NOTE | 2024-03-24 15:42 | P.DS_ITS ---
DS: Providers Provider Date of Service: 03/24/24 Date of admission: 03/12/24 20:14 Date of discharge: 03/24/24 Primary care physician: Michele Card MD Consults: 03/13/24 08:30 Consult to Nephrology Routine Consulting Provider: [facility] Reason for consultation: renée Has provider been notified: No 03/13/24 12:29 Consult to Wound Care Routine Reason for consultation: abrasions to all extremities 03/15/24 10:14 Consult to Wound Care Routine Reason for consultation: DTI buttocks 03/16/24 14:10 Consult to Psychiatry Routine Consulting Provider: Psych Covering Reason for consultation: competency Has provider been notified: No Attending physician on discharge: Dean Gabriel Discharging clinician: Mary Jo Vyas DS: Diagnosis Discharge Diagnosis (1) Acute kidney injury: Status: Acute (2) Syncope and collapse: Status: Acute (3) Urinary tract infection: Status: Acute DS: Summary Hospital Course Hospital Course: From H&P on the day of admission 70-year-old female with history of ray-hpdmtcg-gkwaxeken type 2 diabetes, hypertension, history of CVA, CKD stage 3, history of complete heart block s/p pacemaker placement, diabetic polyneuropathy, mood disorder presented to the ED via EMS following a syncopal episode just prior to arrival. Apparently she went outside for fresh air was walking around her car and passed out in the driveway. She does not recall the event and denies any prodrome including visual changes, lightheadedness, palpitations, shortness breath, chest pain. She awoke after an unspecified period of time surrounded by bystanders who called EMS. She denies any blood thinners. She has no history of prior falls. She does report pain in the left hand but does have full range of motion at the wrist and sustained several lacerations/abrasions with no ongoing bleeding. She states she primarily drinks tea throughout the day and drinks about 1 cup of water. Denies any changes to intake. She denies fevers, chills, sore throat, congestion, abdominal pain, nausea, vomiting, diarrhea, dysuria, hematuria, increased urinary frequency/urgency, cough. No recent illness. She currently has no complaints except for pain in the left hand. On arrival, patient hypertensive to 178/89. Orthostatics were positive with drop in SBP from 156--> 123 but no hypotension. Vitals otherwise stable. There is no leukocytosis or anemia. Creatinine is elevated from baseline at 1.95, baseline around 1.2-1.4. BUN 42. Electrolyte levels normal except for CO2 19. Glucose 232. AST 55, ALT 77 . Troponin 6.7. Urinalysis with 2+ leukocytes, positive nitrites, 1+ blood, moderate glucose, 2+ protein, positive urinary sediment, 4+ bacteria. Ethyl alcohol level undetectable. Negative for COVID, RSV, flu. CT of the head negative for acute intracranial abnormality. Diffuse volume loss and moderate chronic microangiopathy with remote lacunar infarcts and left PICA vascular territory encephalomalacia noted on head CT. Cervical spine CT negative for any acute osseous abnormality but shows degenerative changes. X-ray of the pelvis negative for osseous abnormality. X-ray of the left hand negative for fracture dislocation. Acute syncopal episode -dizziness resolved, normal orthostatic blood pressures, syncope was likely due to dehydration with autonomic dysfunction with drop in sbp with unchanged pulse which resolved with fluids. -Head ct negative for acute intracranial abnormality but shows chronic microangiopathy, volume loss, and chronic lacunar infarcts -no acute osseous abnormality on cervical spine CT, pelvis x-ray, hand x-ray -ekg shows AV dual paced rhythm , trop wnl -no arrhythmia on tele monitor -continue current dose of nifedipine, lisinopril and Coreg -PT recommend short-term rehab, dizziness and lightheadedness resolved, will require short-term rehab to reduce impairments and maximize function. Acute UTI urine culture grew E coli sensitive to ceftriaxone, finished course of antibiotic. acute on chronic kidney disease stage 3b likely prerenal in the setting of acute dehydration/hypovolemia and infection, creatinine improved from 1.9-1.34 at baseline Recommend outpatient Nephrology follow-up jdy-wgbwfas-swjkwuvaj type 2 diabetes stable blood sugars continue diabetic diet and insulin sliding scale. Not on home medications, hemoglobin A1c.6.3 hypertension -continue carvedilol, nifedipine and lisinopril, acceptable blood pressure control history of complete heart block s/p pacemaker placement -EKG shows AV dual paced rhythm with PVCs, no arrhythmia on tele monitor. CVA history/ HLD - statin discontinued. LDL 44. recommend to repeat lipid profile in 3-4 months Cognitive impairment likely vascular dementia CT head showed diffuse volume loss with moderate chronic microangiopathy, B12 493, TSH 0.92, folate normal. Healthcare proxy invoked daughter is healthcare proxy Time Attestation Discharge Coordination Time (in mins): 35 Quality: Safe Use of Opioids Does Pt have an Active Cancer Diagnosis on the Problem List?: No Quality: Stroke Does the patient have a stroke diagnosis?: No Physical Exam Vital Signs: Vital Signs: Last Vital Signs Temp 97.4 F 03/24/24 15:31 Pulse 60 03/24/24 15:31 Resp 18 03/24/24 15:31 BP 107/62 03/24/24 15:31 Pulse Ox 98 03/24/24 15:31 O2 Del Method Room Air 03/24/24 15:31 BMI result Body Mass Index 21.6 Const: General: cooperative, comfortable, alert and awake Nutritional Appearance: average body habitus Resp: Effort & Inspection: normal respiratory effort, able to speak in complete sentences, no respiratory distress and no use of accessory muscles Cardio: Rate: regular rate GI: Inspection: No distended Palpation (GI): Soft to palpation and nontender Neuro: General: moves all extremities and CN's II-XI intact bilaterally Extrem: General: Yes no pedal edema DS: Data Data Completed and Pending Completed studies during hospitalization [Text1]: Procedures Plain Radiography of Bilateral Renal Arteries using Low Osmolar Contrast (06/03/20) Repair Left Hand Skin, External Approach (08/27/20) Labs on day of discharge: Laboratory Results - last 24 hr 03/23/24 03/23/24 03/24/24 15:52 20:18 07:15 POC Glucose 107 217 H 95 03/24/24 10:48 POC Glucose 244 H Discharge Plan Discharge Anticipated Discharge Date/Time: 03/24/24 15:45 Patient Disposition: Xfer SNF Discharge Diagnosis: UTI RENÉE Referrals: [facility] [Other] - 1 Week Michele Card MD [Primary Care Provider] - 1 Week Discharge Medications: New nifedipine 30 mg Tablet Extended Release 24hr 30 mg PO DAILY Qty: 30 0RF Protocol: Hold for SBP< HOLD for SBP < : 90 lorazepam 0.5 mg Tablet 0.5 mg PO BEDTIME PRN (Reason: anxiety) Qty: 14 0RF lisinopril 10 mg Tablet 10 mg PO DAILY Qty: 30 0RF Protocol: Hold for SBP< HOLD for SBP < : 90 trazodone 50 mg tablet 25 mg PO BEDTIME PRN (Reason: insomnia) Qty: 30 0RF polyethylene glycol 3350 17 gram Powder In Packet 17 g PO DAILY Qty: 100 0RF Continued carvedilol 6.25 mg tablet 6.25 mg PO BID Qty: 180 1RF sennosides [Senna Laxative] 8.6 mg tablet 17.2 mg PO BEDTIME 90 Days Qty: 180 1RF Discontinued nifedipine 60 mg tablet extended release 24hr 60 mg PO DAILY 90 Days Qty: 90 1RF atorvastatin 80 mg tablet 80 mg PO BEDTIME 90 Days Qty: 90 1RF trazodone 50 mg tablet 25 mg PO BEDTIME PRN (Reason: insomnia) Qty: 45 1RF lorazepam 1 mg tablet 1 mg PO BEDTIME PRN (Reason: anxiety) 30 Days Qty: 30 0RF Discharge Orders: Discharge Order (Routine); Ordered 03/24/24 Ordered By: Mary Jo Vyas Diet: Diabetic diet Activity on Discharge: As tolerated Stand Alone Forms: Patient Portal Discharge page Print Language: Azeri Care Plan Goals: Hypertension monitor blood pressure, avoid hypotension Lipitor discontinued monitor lipid panel in 4 months Health Concerns: Diabetes mellitus follow diabetic diet cognitive impairment - HCP invoked Plan of Treatment: Outpatient follow-up with primary care physician call for appointment Assessment: As above
[2024-03-24 16:23] LABS: Glucose, Whole Blood 186 mg/dL (60-115)
--- NOTE | 2024-03-24 18:32 | PC.NURSE ---
attempted to call facility to give report x2
== END 2024-03-24 18:32 | disposition skilled nursing facility (03) | DRG 690 ==
LOC: HO.ED 19:25 → HO.EDOVER 20:21 → HO.IMC 03-13 09:32
PROVIDERS: Hospitalist; Physician Assistant; Student in an Organized Health Care Education/Training Program; Admitting Provider Physician Assistant; Emergency Provider Emergency Medicine; PCP Family Medicine Geriatric Medicine; Visit Provider Physician Assistant Medical
DX: N39.0 Urinary tract infection, site not specified (principal); N17.9 Acute kidney failure, unspecified; I44.2 Atrioventricular block, complete; E86.0 Dehydration; E11.42 Type 2 diabetes mellitus with diabetic polyneuropathy; Z95.0 Presence of cardiac pacemaker; I12.9 Hypertensive chronic kidney disease with stage 1 through stage 4 chronic kidney disease, or unspecified chronic kidney disease; F01.50 Vascular dementia, unspecified severity, without behavioral disturbance, psychotic disturbance, mood disturbance, and anxiety; B96.20 Unspecified Escherichia coli [E. coli] as the cause of diseases classified elsewhere; N18.32 Chronic kidney disease, stage 3b; N25.0 Renal osteodystrophy; D63.1 Anemia in chronic kidney disease; G90.9 Disorder of the autonomic nervous system, unspecified; E86.1 Hypovolemia; L89.151 Pressure ulcer of sacral region, stage 1; E78.5 Hyperlipidemia, unspecified; Z86.73 Personal history of transient ischemic attack (TIA), and cerebral infarction without residual deficits; E11.22 Type 2 diabetes mellitus with diabetic chronic kidney disease; I25.10 Atherosclerotic heart disease of native coronary artery without angina pectoris; F17.210 Nicotine dependence, cigarettes, uncomplicated; Z71.6 Tobacco abuse counseling; Z20.822 Contact with and (suspected) exposure to COVID-19; Z79.899 Other long term (current) drug therapy
CPT/HCPCS: 0241U; 36415; 70450; 71046; 72125; 72170; 73130; 80048; 80053; 80061; 80307; 81001; 82607; 82746; 82947; 83036; 83690; 83735; 84484; 85025; 85610; 87086; 87088; 87186; 93005; 97116; 97162; 97530; 97535; 99285; J0696; J1650; J2405; J7120

== ENCOUNTER → 2024-03-12 20:14 | Outpatient (BNV) | payer MEDICARE, SELFPAY | PROVIDERS: Admitting Provider Physician Assistant; Emergency Provider Emergency Medicine; PCP Family Medicine Geriatric Medicine; Visit Provider Registered Nurse | DX: Z13.30 Encounter for screening examination for mental health and behavioral disorders, unspecified (principal) | CPT/HCPCS: 99222 ==

== ENCOUNTER → 2024-03-12 20:14 | Outpatient (BNV) | payer MEDICARE, SELFPAY | PROVIDERS: Admitting Provider Physician Assistant; Emergency Provider Emergency Medicine; PCP Family Medicine Geriatric Medicine; Visit Provider Physician Assistant | DX: N17.9 Acute kidney failure, unspecified (principal); R55 Syncope and collapse; N39.0 Urinary tract infection, site not specified | CPT/HCPCS: 99223; 99232; 99233; 99239 ==

== ENCOUNTER 2024-04-10 13:12 | Outpatient (AMB) | payer MEDICARE, SELFPAY ==
--- NOTE | 2024-04-10 13:18 | A.OFFPC_ITS ---
Vital Signs 04/10/24 13:19 Height 5 ft 3 in Weight 114 lb BMI 20.2 BP 110/66 Blood Pressure Location Rt brachial Position Sitting Pulse 62 Pulse Source Pulse Oximeter Pulse Oximetry (%) 98 Intake Visit Reasons: ED f/u Intake Note: pt is here for ED follow up Allergies No Known Allergies Allergy (Verified 04/10/24 14:03) Medication List - Last Reconciled 04/10/24 by Jerry Hart FURNACE ATTENDANT- lisinopril 10 mg See Protocol PO DAILY lorazepam 0.5 mg PO BEDTIME PRN nifedipine ER 30 mg See Protocol PO DAILY polyethylene glycol 3350 17 grams PO DAILY sennosides (Senna Laxative) 17.2 mg (2 x 8.6 mg) PO BEDTIME 90 days trazodone 25 mg (1/2 x 50 mg) PO BEDTIME PRN Tobacco use date assessed: 09/22/23 Fall risk assessment: 1 Fall in past year Last assessed Fall Risk: 04/10/24 Dental Screening Dental Screen Date: 09/22/23 HPI ED f/u HPI Details Pt was seen in the ER on 03/12 after an unwitnessed fall with LOC. Labs showed no leukocytosis or anemia, creatinine is elevated from baseline at 1.95, BUN 42. Electrolyte levels normal except for CO2 19. Glucose 232. AST 55, ALT 77. Troponin 6.7. Urinalysis with 2+ leukocytes, positive nitrites, 1+ blood, moderate glucose, 2+ protein, positive urinary sediment, 4+ bacteria. Ethyl alcohol level undetectable. She was negative for COVID, RSV, flu. CT of the head was negative for acute intracranial abnormality. Diffuse volume loss and moderate chronic microangiopathy with remote lacunar infarcts and left PICA vascular territory encephalomalacia noted on head CT. Cervical spine CT negative for any acute osseous abnormality but shows degenerative changes. XR of the pelvis negative for osseous abnormality. XR of the left hand negative for fracture dislocation. EKG showed AV dual paced rhythm. 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 Pt's dizziness resolved. Syncope was likely due to dehydration. Pt was seen by PT who recommended short term rehab. Pt's urine culture grew e coli sensitive to ceftriaxone, completed antibiotics. Creatinine improved to baseline. It was recommended that pt follow up with nephrology, she has an appointment in early April. Pt reports doing better today. Denies fever, chills, chest pain, shortness of breath, and dizziness. Pt is a diabetic, on an SANJU and a statin. Last A1C was 6.3. Due for microalbumin. Denies polyuria, polydipsia, and neuropathy. Pt denies any signs and symptoms of hypoglycemia and does know how to correct it. Pt's atorvastatin was stopped in the hospital but she is still taking this. Pt was also supposed to stop nifedipine and start carvedilol but she has not done this. Will not make any med changes until pt sees nephrology. [facility] Medical History Encounter for competency evaluation Elevated liver enzymes CKD (chronic kidney disease) stage 3, GFR 30-59 ml/min Complete heart block CVA (cerebral vascular accident) Anxiety Colonoscopy refused Mammogram declined Noncompliance CAD (coronary artery disease) Bradycardia, sinus Fall HTN (hypertension) Diabetic neuropathy, type II diabetes mellitus Hypertension Surgical History Aortocoronary bypass status Social History Household Members: Spouse Household Members Other:: 2 Housing: Apartment Do you presently have visiting nurse or other home services: No Alcohol intake: never Comment: refuses alarm Patient Tobacco Use Status: Current everyday Tobacco user Cigarettes Per Day: 4 Years Smoked: 60 e-Cigarette/Vaping Use: Never Used Second Hand Smoke Exposure: No Advance Directives Date on File: 08/27/20 service: No Current occupational status: retired Cognitive needs: No Hearing needs: No Vision needs: No Questionnaire Thrive Questionnaire Date Thrive assessed: 03/13/24 LUCIA-7 AMB Questionnaire LUCIA-7 Date LUCIA - 7 assessed: 01/05/22 Source: Developed by Drs. Telly Schroeder, Ana Maria Jones, Camilo Matthews and colleagues, with an educational shawn from [employer]. Review of Systems Const Reports as per HPI Physical exam (Primary Care) Vital Signs: Last Vital Signs Pulse 62 04/10/24 13:19 BP 110/66 04/10/24 13:19 Pulse Ox 98 04/10/24 13:19 BMI result Body Mass Index 20.2 Tobacco/Smoking Status: Tobacco use Status Tobacco use date assessed 09/22/23 04/10/24 13:21 Patient Tobacco Use Status Current everyday Tobacco 04/10/24 13:21 e-Cigarette/Vaping Use Never Used 04/10/24 13:21 Thrive Assessment: Date of Thrive Assessment Date Thrive assessed 03/13/24 04/10/24 13:21 Const General: cooperative Orientation/consciousness: patient oriented x3 Limitations: ambulation with walker Resp Effort & Inspection: normal respiratory effort Auscultation: clear to auscultation bilaterally (slightly dim) Cardio Rate: regular rate Rhythm: regular rhythm Heart sounds: S1 normal heart sound present and S2 normal heart sound present Neuro General: patient oriented x3 Extrem Other: bilat feet: + sensation with use of monofilament, small abrasions to right medial foot, healing without signs of infection Psych Appearance: grossly normal Mental Status: mental status grossly normal Speech and movement: Normal speech and movement present Affect: normal affect Attitude: cooperative Thought process: Normal thought process present Thought content: Normal thought content present Insight: Good insight present (Psych) Judgement: Good judgement present (Psych) Assessment and Plan Assessment & Plan (1) DMII (diabetes mellitus, type 2): Code(s): E11.9 - Type 2 diabetes mellitus without complications Plan: controlled currently (2) CKD (chronic kidney disease) stage 3, GFR 30-59 ml/min: Code(s): N18.30 - Chronic kidney disease, stage 3 unspecified Plan: awaiting labs and nephro's input (3) Urinary tract infection: Code(s): N39.0 - Urinary tract infection, site not specified Plan: will recheck urine Plan The patient agreed to the use of a director medical affairs for this encounter. Scribed for BING Olson by Candelaria Aiken director medical affairs, on 04/10/2024 at 13:55 EST. Orders: Orders Comprehensive [place]. Panel Fast Today E11.9 - Type 2 diabetes mellitus without complications, N18.30 - Chronic kidney disease, stage 3 unspecified UA CC w/rflx Micro + Cult Today E11.9 - Type 2 diabetes mellitus without complications, N18.30 - Chronic kidney disease, stage 3 unspecified Hemoglobin A1c Today E11.9 - Type 2 diabetes mellitus without complications, N18.30 - Chronic kidney disease, stage 3 unspecified Complete Blood Count Auto Diff Today E11.9 - Type 2 diabetes mellitus without complications, N18.30 - Chronic kidney disease, stage 3 unspecified Lipid Panel Today E11.9 - Type 2 diabetes mellitus without complications, N18.30 - Chronic kidney disease, stage 3 unspecified TSH reflex Free T4 Today E11.9 - Type 2 diabetes mellitus without complications, N18.30 - Chronic kidney disease, stage 3 unspecified Microalbumin, Random (w Creat) Today E11.9 - Type 2 diabetes mellitus without complications, N18.30 - Chronic kidney disease, stage 3 unspecified Coding Level of Care Code Est Pt Level 4 (29762) Diagnoses DMII (diabetes mellitus, type 2) E11.9 CKD (chronic kidney disease) stage 3, GFR 30-59 ml/min N18.30 Urinary tract infection N39.0
[2024-04-10 13:19] VITALS: BP 110/66; PULSE 62; O2SAT 98; BMI 20.2
== END 2024-04-10 14:15 | disposition home or self-care (01) ==
PROVIDERS: PCP Family Medicine Geriatric Medicine; Visit Provider Nurse Practitioner Family
DX: E11.9 Type 2 diabetes mellitus without complications (principal); N18.30 Chronic kidney disease, stage 3 unspecified; N39.0 Urinary tract infection, site not specified

== ENCOUNTER → 2024-04-10 13:12 | Outpatient (BNVA) | payer MEDICARE, SELFPAY | PROVIDERS: PCP Family Medicine Geriatric Medicine; Visit Provider Nurse Practitioner Family | DX: E11.9 Type 2 diabetes mellitus without complications (principal); N18.30 Chronic kidney disease, stage 3 unspecified; N39.0 Urinary tract infection, site not specified | CPT/HCPCS: 99212 ==

== ENCOUNTER 2024-05-05 10:39 | Outpatient (REF) | payer MEDICARE, SELFPAY ==
[2024-05-05 13:20] LABS: MANUAL DIFF FLAG NO
[2024-05-05 13:31] LABS: Basophils Absolute Auto 0.1 X10*3/uL (0.0-0.2); Basophils Percent Auto 0.4 % (0-2); Eosinophils Absolute Auto 0.2 X10*3/uL (0.0-0.4); Eosinophils Percent Auto 1.6 % (0-4); Hematocrit 42.4 % (37.0-47.0); Hemoglobin 14.1 g/dl (12.0-16.0); Imm Gran Abs Auto 0.05 X10*3/uL (0.00-0.03); Imm Gran Pct Auto 0.4 % (0.0-0.4); Lymphocytes Absolute Auto 1.5 X10*3/uL (1.2-4.9); Lymphocytes Percent Auto 13.3 % (20-40); Mean Corpuscular HGB Conc 33.3 g/dl (31.0-35.0); Mean Corpuscular Hemoglobin 31.3 pg (27.0-33.0); Mean Platelet Volume 10.5 fL (9.4-12.3); Monocytes Absolute Auto 0.4 X10*3/uL (0.1-1.2); Monocytes Percent Auto 3.7 % (2-11); Neutrophils Absolute Auto 9.3 x10*3/uL (2.0-8.3); Neutrophils Percent Auto 80.6 % (45-73); Platelet Count 141 X10*3/uL (160-400); Red Blood Count 4.51 X10*6/uL (4.20-5.50); White Blood Count 11.5 X10*3/uL (4.8-10.8)
[2024-05-05 13:48] LABS: Estimated Average Glucose 137 mg/dL; Hemoglobin A1C 165.9936 umol/L; Hemoglobin A1c % 6.4 % (<6.0); Total Hemoglobin (HGBA1C) 3589.8353 umol/L
[2024-05-05 13:55] LABS: Alanine Aminotransferase 38 U/L (0-31); Albumin Level 3.9 g/dL (3.5-5.0); Alkaline Phosphatase 137 U/L (39-117); Anion Gap 13 (12-20); Aspartate Amino Transferase 31 U/L (5-31); Bilirubin Total 0.6 mg/dL (0.0-1.0); Blood Urea Nitrogen 25 mg/dL (9-16); Calcium 8.9 mg/dL (8.4-10.2); Carbon Dioxide 21 mmol/L (22-29); Chloride 113 mmol/L (96-108); Cholesterol 95 mg/dL (<200); Estimated Glomerular Filt Rate 28; Glucose Fasting 122 mg/dL (60-99); HDL Cholesterol 43 mg/dL (>40); LDL Cholesterol Calculated 37 mg/dL (<100); Potassium 4.2 mmol/L (3.3-5.1); Sodium 143 mmol/L (135-145); Total Protein 6.7 g/dL (6.5-8.0); Triglycerides 79 mg/dL (<150)
[2024-05-05 14:14] LABS: TSH reflex Free T4 0.37 uIU/mL (0.32-4.0)
== END 2024-05-05 10:40 | disposition home or self-care (01) ==
LOC: HO.HMGCLDS 10:39
PROVIDERS: PCP Nurse Practitioner Family; Visit Provider Nurse Practitioner Family
DX: N18.30 Chronic kidney disease, stage 3 unspecified (principal); E11.9 Type 2 diabetes mellitus without complications
CPT/HCPCS: 36415; 80053; 80061; 83036; 84443; 85025

== ENCOUNTER 2024-07-11 13:42 | Outpatient (AMB) | payer MEDICARE, SELFPAY ==
--- OUTSIDE RECORDS SUMMARY | 2024-07-11 13:45 | XMS_ITS | Continuity of Care Document ---
Author Organization [facility] Address [address] [place] [address] Phone Care Team Providers Care Buccaro Name Role Phone Nurse, Only Unavailable Unavailable Allergies, Adverse Reactions, Alerts Substance Reaction Status Criticality QUETIAPINE FUMARATE Nightmares Active No Infor mation egg Active No Information nifedipine Headache, ringing in ears Active No Information Medications Medication Instructions Dosage Effective Dates (start - stop) Status Comments Prinivil 20 mg Tab Take one tablet by mouth two times per day - Active Calan SR 240 mg Tab Take one tablet mohini y every morning - Active Lopressor 50 mg Tab Take one tablet by mouth two times per day - Active SEREVENT 21MCGAER W/ADAP 1 inhalation treatment twice daily - Active ProAir HFA 90 mcg/Actuation Aerosol Inhaler 2 puffs by mouth every 2 hours as needed - Active NitroQuick 0.[address] one tablet under the tongue as needed for chest pain every five minutes as needed, up to a maximum of three - Active Procedures Procedure Date Offic/outpt E&m Estab Low-mod 9 Offic/outpt E&m Estab Mod-hi 2 09 Reline Complt Mandib Vermillion (lab 08 Offic Visit Obsrv (reg Hours O 08 Adjust Complete Denture-mandib 08 Offic/outpt E&m Estab Low-mod 7 Offic/outpt E&m Estab Low-mod 7 Offic/outpt E&m Estab Minor 10 07 Offic/outpt E&m Estab Low-mod 6 Offic/outpt E&m Estab Low-mod 6 Offic/outpt E&m Estab Low-mod 6 Offic/outpt E&m Estab Low-mod 6 Advance Directives Directive Yes / No Effective Date File Name No Information Encounters Encounter Description Practice Location Reason(s) For Visit Diagnoses Date Provider Providers Copied on Encounter [facility], [address] [place] [address], [id number], tel:[phone] [facility] No Information 0 0 Nurse Only. . [facility], [address] [place] [address], [id number], tel:[phone] [facility] No Information 9 No Information [facility] [address] [place] [address], [id number], tel:[phone] [facility] Ischemic heart disease (chief complaint)E mphysema (chief complaint) Benign HypertensionAth erosclerosis NecCOPD Not With AsthmaTobacco Dependence 9 No Information [facility], [address] [place] [address], [id number], tel:[phone] [facility] No Information 9 No Information Offic/outpt E&m Estab Mod-hi 2 [facility], [address] [place] [address], [id number], [place] tel:[phone] [facility] Medication refill (chief complaint) Benign HypertensionAth erosclerosis NecCOPD Not With AsthmaTobacco Dependence 9 No Information [facility], [address] [place] [address], [id number], tel:[phone] [facility] No Information 8 No Information [facility], [address] [place] [address], [id number], [place] tel:[phone] [facility] No Information 8 8 No Information [facility], [address] [place] [address], [id number], tel:[phone] [facility] No Information 6 8 No Information [facility], [address] [place] [address], [id number], [place] tel:[phone] [facility] No Information 4 8 No Information Offic/outpt E&m Estab [facility], [address] [place] [address], [id number], tel:[phone] [facility] Skin lesion: (chief complaint)H ypertension : (chief complaint)C igarette smoking: (chief complaint)E mphysema: (chief complaint) No Information 7 No Information [facility], [address] [place] [address], [id number], tel:[phone] [facility] No Information 1 7 No Information Offic/outpt E&m Estab [facility], [address] [place] [address], [id number], tel:[phone] [facility] No Information 0 7 No Information Offic/outpt E&m Estab Minor 10 [facility], [address] [place] [address], [id number], [place] tel:[phone] [facility] No Information 7 7 No Information Offic/outpt E&m Estab [facility], [address] [place] [address], [id number], [place] tel:[phone] [facility] No Information 2200 6 No Information Offic/outpt E&m Estab [facility], [address] [place] [address], [id number], [place] tel:[phone] [facility] No Information 6 No Information Offic/outpt E&m [facility], [address], [place], [id number], tel:[phone] [facility] No Information 6 No Information Offic/outpt E&m [facility], [address], [place], [id number], tel:[phone] [facility] No Information 6 No Information Family History Family Member Type Diagnosis Age At Onset grandmother Problem (finding) Diabetes mellitus grandfather Problem (finding) Heart Attack aunt Problem (finding) tuberculosis Payers Payer name Insurance type Covered green party ID Authoriza tion(s) [place] [id number] Social History Type Description Quantity Date Captured Comments Sex Female Smoking Status No Information Chief Complaint And Reason For Visit No Information Reason For Referral Reason For Referral No Information History Of Present Illness Encounter Date Complaint History Of Prese nt Illness No Information Functional Status Date Functional Assessmen t No Information Instructions Date Instruction Additional Infor mation No Information Assessments Type Assessment Date No Information Patient Care Teams Name Effective Dates (start - stop) Status Members No Information
[2024-07-11 13:47] VITALS: BP 130/70; PULSE 60; O2SAT 98; BMI 20.9
--- NOTE | 2024-07-11 13:47 | A.OFFPC_ITS ---
Vital Signs 07/11/24 13:47 Height 5 ft 3 in Weight 118 lb BMI 20.9 BP 130/70 Blood Pressure Location Rt brachial Position Sitting Pulse 60 Pulse Source Pulse Oximeter Pulse Oximetry (%) 98 Intake Visit Reasons: 3 month follow up - see comments Intake Note: pt is here for 3 month f/up Allergies No Known Allergies Allergy (Verified 07/11/24 14:23) Medication List - Last Reconciled 07/11/24 by COREY AvilaP- atorvastatin 80 mg PO DAILY carvedilol 6.25 mg PO BID 90 days lorazepam 1 mg PO DAILY PRN nifedipine ER 60 mg (2 x 30 mg) PO DAILY sennosides (Senna Laxative) 17.2 mg (2 x 8.6 mg) PO BEDTIME 90 days trazodone 25 mg (1/2 x 50 mg) PO BEDTIME PRN Tobacco use date assessed: 09/22/23 Fall risk assessment: 2 + Falls in past year Last assessed Fall Risk: 07/11/24 Dental Screening Dental Screen Date: 09/22/23 HPI 3 month follow up - see comments HPI Details Chief Complaint Follow-up for diabetes management. History of Present Illness The patient is a 78-year-old female presenting for follow-up on diabetes management. She has a history of Type 2 Diabetes Mellitus, which is relatively well-controlled. Regular lab work is planned to include a microalbumin to assess for renal complications. The patient reports no symptoms of neuropathy currently. Additionally, she has a history of right-sided hemiparesis, secondary to an unspecified event, leading to residual weakness. She uses a walker for ambulation assistance due to her right lower extremity weakness and faint positioning on that side. Despite the physical limitations, she manages activities of daily living with the aid of her walker. She resides with her daughter, who is her primary caregiver. pt refuses any vaccinations. NOTE: discharged from the hospital on 30mg nifedipine, though pt has been on 60mg and tolerating it. Denies any dizziness with standing. encouraged yearly eye exams. Pt's daughter will call me with any dizziness upon standing or dizziness in general. Hx of COPD, denies any symptoms, refuses any inhalers. Social History - Lives with her daughter, who is her pr imary caregiver. - Utilizes a walker for mobility due to right-sided hemiparesis. Health Maintenance - Denied foot examination today. - Planning regular lab tests, including microalbumin. Review of Systems - Musculoskeletal: Denies neuropathy. - Respiratory: Denies shortness of breat h. - Cardiovascular: Denies chest pain. -denies blurred vision Physical Exam General: Cooperative, healthy appearing, comfortable, no acute distress and well developed, using walker Orientation: Patient oriented x3 Limitations: Uses a walker for residual right-sided hemiparesis related to right-sided weakness (RLE) Head: Normal to inspection Ears: Hearing grossly normal bilaterally Nose: Normal external nose present Face and sinus: Normal facial exam Eyes: Appearance normal, both eyes and all related structures Neck: Normal visual inspection and Yes full ROM Respiratory: Normal respiratory effort and able to speak in complete sentences. Clear to auscultation bilaterally Cardiovascular: Regular rate and rhythm. Normal S1 and S2 GI: Normal to inspection. Soft to palpation and nontender Skin: No rashes or lesions noted Neuro: CN2 through 12 intact. Slight residual weakness to right lower extremity Extremities: Normal to inspection, slight residual weakness to right lower extremity Results - Labs: Plan to obtain microalbumin. Plan - Continue monitoring diabetes with plan francisco labs, including microalbumin. - Encourage use of walker to assist with ambulation due to right-sided hemiparesis. - Monitor symptoms and manage diabetes f or any potential complications. Patient was informed and verbally consented to the use of an ambient scribe for clinic note documentation during this visit. Discussion Notes During the visit, I discussed the patient's current status of diabetes management, noting that her condition is fairly well-controlled. We reviewed the importance of regular labs, including a microalbumin, to monitor renal function. The patient denied neuropathy, and I ensured she understands the significance of ongoing surveillance for any new symptoms. I noted her right-sided hemiparesis and advised continuation with the walker for mobility support. The patient expressed a desire to avoid inhalers at this time due to the lack of respiratory concerns. I addressed the refusal for a foot exam but emphasized its importance in diabetes management. The need for continuous follow-up and maintaining current management strategies was highlighted, affirming the plan to continue with her current care regimen. Patient Instructions - Utilize your walker to assist with mob ility. - Attend scheduled lab work, including m icroalbumin, to monitor diabetes. - Continue monitoring for any new sympto ms like pain or tingling in extremities. - Follow up for diabetes monitoring and report any changes in health. - Contact us if new symptoms or concerns arise, especially regarding diabetes or mobility. [facility] Medical History Encounter for competency evaluation Elevated liver enzymes CKD (chronic kidney disease) stage 3, GFR 30-59 ml/min Complete heart block CVA (cerebral vascular accident) Anxiety Colonoscopy refused Mammogram declined Noncompliance CAD (coronary artery disease) Bradycardia, sinus Fall HTN (hypertension) Diabetic neuropathy, type II diabetes mellitus Hypertension Surgical History Aortocoronary bypass status Social History Household Members: Spouse Household Members Other:: 2 Housing: Apartment Do you presently have visiting nurse or other home services: No Alcohol intake: never Comment: refuses alarm Patient Tobacco Use Status: Current everyday Tobacco user Cigarettes Per Day: 4 Years Smoked: 60 e-Cigarette/Vaping Use: Never Used Second Hand Smoke Exposure: No Advance Directives Date on File: 08/27/20 service: No Current occupational status: retired Cognitive needs: No Hearing needs: No Vision needs: No Questionnaire PHQ-9 Over the last 2 weeks, how often have you been bothered by any of the following problems? 1. Little interest or pleasure in doing things: nearly every day 2. Feeling down, depressed, or hopeless: nearly every day 3. Trouble falling or staying asleep, or sleeping too much: several days 4. Feeling tired or having little energy: several days 5. Poor appetite or overeating: not at all 6. Feeling bad about yourself - or that you are a failure or have let yourself or your family down: not at all 7. Trouble concentrating on things, such as reading the newspaper or watching television: not at all 8. Moving or speaking so slowly that other people could have noticed. Or the opposite - being so fidgety or restless that you have been moving around a lot more than usual: more than half the days 9. Thoughts that you would be better off or of hurting yourself in some way: not at all Total score: 10 Depression Screening Interpretation: Positive Depression Screening Follow-up: Existing condition and Declines treatment Depression Screening Done: Yes 54992 - PHQ-9 Billing: Yes Source: Developed by Drs. Telly Schroeder, Ana Maria Jones, Camilo Matthews and colleagues, with an educational shawn from [employer]. Thrive Questionnaire Date Thrive assessed: 07/11/24 I am a: Parent/Caregiver What is your living situation today?: I have a steady place to live Within the past 12 months, did the food you bought not last and you didn't have the money to get more?: Never true Within the past 12 months, did you worry whether your food would run out before you got money to buy more?: Never true Do you have trouble paying for medicines?: No Do you have trouble getting transportation to medical appointments?: No Do you have trouble paying your heating and electricity bill?: No Do you have trouble taking care of your child, family member or friend?: No Do you have trouble with day-to-day activities such as bathing, preparing meals, shopping, managing finances, etc.?: No Are you currently unemployed and looking for a job?: No Are you interested in more education?: No Please select the resources that you would like help with: None Currently or been in a relationship where the following occur: I choose not to answer THRIVE Score: 0 AUDIT C Alcohol Use Questionnaire (AUDIT-C) 1. How often do you have a drink containing alcohol?: Never 3. How often do you have six or more drinks on one occasion?: Never Total Score: 0 Score Reviewed/Action Taken: Yes LUCIA-7 AMB Questionnaire LUCIA-7 Date LUCIA - 7 assessed: 07/11/24 Feeling nervous, anxious, or on edge: 0 = Not at all Not being able to stop or control worryin = Not at all Worrying too much about different things: 0 = Not at all Trouble relaxin = Not at all Being so restless that it is hard to sit still: 0 = Not at all Becoming easily annoyed or irritable: 0 = Not at all Feeling afraid as if something awful might happen: 0 = Not at all Total LUCIA-7 score (0-4 normal; 5-9 mild; 10-14 moderate; 15-21 severe): 0 Source: Developed by Ana Maria Smith. Robert, Camilo Matthews and colleagues, with an educational shawn from [employer]. LUCIA-7 Assessment Billing LUCIA-7 Assessment Tool: LUCIA-7 Assessment 45486 Physical exam (Primary Care) Vital Signs: Last Vital Signs Pulse 60 07/11/24 13:47 BP 130/70 07/11/24 13:47 Pulse Ox 98 07/11/24 13:47 BMI result Body Mass Index 20.9 Tobacco/Smoking Status: Tobacco use Status Tobacco use date assessed 09/22/23 07/11/24 13:48 Patient Tobacco Use Status Current everyday Tobacco 07/11/24 13:48 e-Cigarette/Vaping Use Never Used 07/11/24 13:48 PHQ-9: PHQ-9 Score PHQ-9: Total score 10 07/11/24 13:48 Depression Screening Interpretation: Positive Depression Screening Follow-up: Existing condition and Declines treatment Thrive Assessment: Date of Thrive Assessment Date Thrive assessed 07/11/24 07/11/24 13:48 Currently or been in a relationship where the following occur: I choose not to answer Coding Level of Care Code Est Pt Level 3 (49571) Diagnoses CKD (chronic kidney disease) stage 3, GFR 30-59 ml/min N18.30 CVA (cerebral vascular accident) I63.9 COPD (chronic obstructive pulmonary disease) J44.9 DMII (diabetes mellitus, type 2) E11.9 Additional Codes LUCIA-7 Assessment Billing - LUCIA-7 Assessment Tool: LUCIA-7 Assessment 42404 ([id number]) PHQ-9 - 44490 - PHQ-9 Billing: Yes ([id number]) Assessment & Plan Assessment & Plan (1) CKD (chronic kidney disease) stage 3, GFR 30-59 ml/min: Code(s): N18.30 - Chronic kidney disease, stage 3 unspecified Category: Medical (2) CVA (cerebral vascular accident): Code(s): I63.9 - Cerebral infarction, unspecified Category: Medical (3) COPD (chronic obstructive pulmonary disease): Code(s): J44.9 - Chronic obstructive pulmonary disease, unspecified Category: Medical (4) DMII (diabetes mellitus, type 2): Code(s): E11.9 - Type 2 diabetes mellitus without complications Category: Medical Plan . Orders: Orders TSH reflex Free T4 Today I63.9 - Cerebral infarction, unspecified, J44.9 - Chronic obstructive pulmonary disease, unspecified, N18.30 - Chronic kidney disease, stage 3 unspecified Hemoglobin A1c Today E11.9 - Type 2 diabetes mellitus without complications Microalbumin, Random (w Creat) Today E11.9 - Type 2 diabetes mellitus without complications Complete Blood Count Auto Diff Today I63.9 - Cerebral infarction, unspecified, J44.9 - Chronic obstructive pulmonary disease, unspecified, N18.30 - Chronic kidney disease, stage 3 unspecified Comprehensive Met. Panel Today I63.9 - Cerebral infarction, unspecified, J44.9 - Chronic obstructive pulmonary disease, unspecified, N18.30 - Chronic kidney disease, stage 3 unspecified UA CC w/rflx Micro + Cult Today I63.9 - Cerebral infarction, unspecified, J44.9 - Chronic obstructive pulmonary disease, unspecified, N18.30 - Chronic kidney disease, stage 3 unspecified Medications: Changed From nifedipine ER 60 mg (2 x 30 mg) PO DAILY 180 tabs 1RF To nifedipine ER 60 mg PO DAILY 90 tabs 1RF From nifedipine ER 60 mg PO DAILY 90 tabs 1RF To nifedipine ER 60 mg (2 x 30 mg) PO BID 90 days 180 tabs 1RF
== END 2024-07-11 14:39 | disposition home or self-care (01) ==
PROVIDERS: PCP Family Medicine Geriatric Medicine; Visit Provider Nurse Practitioner Family
DX: N18.30 Chronic kidney disease, stage 3 unspecified (principal); I63.9 Cerebral infarction, unspecified; J44.9 Chronic obstructive pulmonary disease, unspecified; E11.9 Type 2 diabetes mellitus without complications

== ENCOUNTER → 2024-07-11 13:42 | Outpatient (BNVA) | payer MEDICARE, SELFPAY | PROVIDERS: PCP Family Medicine Geriatric Medicine; Visit Provider Nurse Practitioner Family | DX: N18.30 Chronic kidney disease, stage 3 unspecified (principal); I63.9 Cerebral infarction, unspecified; J44.9 Chronic obstructive pulmonary disease, unspecified; E11.9 Type 2 diabetes mellitus without complications | CPT/HCPCS: 96127; 99212 ==

== ENCOUNTER 2025-01-11 10:41 | Outpatient (AMB) | payer MEDICARE, SELFPAY ==
[2025-01-11 10:54] VITALS: BP 130/72; PULSE 83; O2SAT 99; BMI 21.8
--- NOTE | 2025-01-11 10:54 | A.OFFPC_ITS ---
Vital Signs 01/11/25 10:54 Height 5 ft 3 in Weight 123 lb BMI 21.8 BP 130/72 Blood Pressure Location Lt brachial Position Sitting Pulse 83 Pulse Source Pulse Oximeter Pulse Oximetry (%) 99 Oxygen Delivery Method Room Air Intake Visit Reasons: Annual PE - see comments Repair Coil Winder Required: No Accompanied by: Daughter Allergies No Known Allergies Allergy (Verified 01/11/25 10:58) Tobacco use date assessed: 01/11/25 Fall risk assessment: No Falls in past year Last assessed Fall Risk: 01/11/25 Dental Screening Dental Screen Date: 01/11/25 Did you have a dental visit in the last 12 months?: Yes Did you have a dental problem in the last 6 months where you did not have access to dental care?: No Was dental information given to patient?: Patient has dentist HPI Annual PE - see comments HPI Details History of Present Illness The patient is a 79-year-old female presenting for a physical examination. HEr daughter is here today as well (primary doggy daycare activities director) She has a history of dementia but is currently alert and oriented today. She experiences incontinence of stool and urine, managed with diapers. The patient has developed erythematous sclera in the right eye, noted this morning, without pain or discharge. She has diabetes mellitus, generally well-controlled, with plans for laboratory monitoring. She refuses several preventative screenings, including colon cancer screening and mammograms. refuses specialists Health Maintenance - Refusal of colon cancer screening, bon e density test, and mammogram Social History - Primary caregiver is her daughter Review of Systems - Cardiovascular: Denies chest pain or i ncreased dyspnea - Gastrointestinal: Denies hematochezia, constipation, or diarrhea - Ophthalmologic: Denies blurred vision or drainage Physical Exam General: Cooperative, healthy appearing, comfortable, no acute distress and well developed Orientation: Patient oriented x3, though she has a history of dementia Limitations: Uses a walker Head: Normal to inspection Ears: Hearing grossly normal bilaterally Nose: Normal external nose present Face and sinus: Normal facial exam Eyes: Erythematous sclera, especially in the inner canthus region of the right eye. No pain, no discharge. Neck: Normal visual inspection and Yes full ROM Respiratory: Normal respiratory effort and able to speak in complete sentences. Clear to auscultation bilaterally Cardiovascular: Heart difficult to auscultate, though S1 and S2, carotid bruit right side GI: Normal to inspection. Soft to palpation and nontender. Incontinent of both stool and urine, wears a diaper. Skin: No rashes or lesions noted Neuro: Patient oriented x3, though she has a history of dementia Extremities: Normal to inspection Results Plan The patient will be referred to an jalousie installer for evaluation of the e rythematous sclera in her right eye, as it is a new finding without associated pain or discharge. An ultrasound will be conducted to further assess the carotid bruit noted on the right side during auscultation. Laboratory tests, including A1c and microalbumin, have been ordered to monitor her diabetes mellitus. Patient was informed and verbally consented to the use of an ambient scribe for clinic note documentation during this visit. Discussion Notes I discussed with the patient and her caregiver the need for an jalousie installer referral due to the new erythematous sclera in her right eye. We also talked about the importance of monitoring her diabetes with regular lab tests, including A1c and microalbumin. The patient was informed about the ultrasound to evaluate the carotid bruit detected during the physical examination. Patient Instructions - Follow up with the jalousie installer as scheduled. - Complete the lab tests as ordered, inc luding A1c and microalbumin. - Attend the ultrasound appointment for further evaluation of the carotid bruit. [facility] Medical History Encounter for competency evaluation Elevated liver enzymes CKD (chronic kidney disease) stage 3, GFR 30-59 ml/min Complete heart block CVA (cerebral vascular accident) Anxiety Colonoscopy refused Mammogram declined Noncompliance CAD (coronary artery disease) Bradycardia, sinus Fall HTN (hypertension) Diabetic neuropathy, type II diabetes mellitus Hypertension Surgical History Aortocoronary bypass status Social History Household Members: Spouse Household Members Other:: 2 Housing: Apartment Do you presently have visiting nurse or other home services: No Alcohol intake: never Comment: refuses alarm Patient Tobacco Use Status: Current everyday Tobacco user Cigarettes Per Day: 4 Years Smoked: 60 e-Cigarette/Vaping Use: Never Used Second Hand Smoke Exposure: No Advance Directives Date on File: 08/27/20 service: No Current occupational status: retired Cognitive needs: No Hearing needs: No Vision needs: No Questionnaire PHQ-9 Over the last 2 weeks, how often have you been bothered by any of the following problems? 1. Little interest or pleasure in doing things: not at all 2. Feeling down, depressed, or hopeless: not at all 3. Trouble falling or staying asleep, or sleeping too much: not at all 4. Feeling tired or having little energy: not at all 5. Poor appetite or overeating: not at all 6. Feeling bad about yourself - or that you are a failure or have let yourself or your family down: not at all 7. Trouble concentrating on things, such as reading the newspaper or watching television: not at all 8. Moving or speaking so slowly that other people could have noticed. Or the opposite - being so fidgety or restless that you have been moving around a lot more than usual: not at all 9. Thoughts that you would be better off or of hurting yourself in some way: not at all Total score: 0 Depression Screening Interpretation: Negative Depression Screening Done: Yes 89566 - PHQ-9 Billing: Yes Source: Developed by Drs. Telly Schroeder, Ana Maria Jones, Camilo Matthews and colleagues, with an educational shawn from [employer]. Thrive Questionnaire Date Thrive assessed: 01/11/25 I am a: Patient What is your living situation today?: I have a steady place to live Within the past 12 months, did the food you bought not last and you didn't have the money to get more?: I choose not to answer this question Within the past 12 months, did you worry whether your food would run out before you got money to buy more?: I choose not to answer this question Do you have trouble paying for medicines?: No Do you have trouble getting transportation to medical appointments?: No Do you have trouble paying your heating and electricity bill?: No Do you have trouble taking care of your child, family member or friend?: No Do you have trouble with day-to-day activities such as bathing, preparing meals, shopping, managing finances, etc.?: Yes Are you currently unemployed and looking for a job?: No Are you interested in more education?: No Please select the resources that you would like help with: None Currently or been in a relationship where the following occur: I choose not to answer THRIVE Score: 0 AUDIT C Alcohol Use Questionnaire (AUDIT-C) 1. How often do you have a drink containing alcohol?: Never 3. How often do you have six or more drinks on one occasion?: Never Total Score: 0 Score Reviewed/Action Taken: Yes LUCIA-7 AMB Questionnaire LUCIA-7 Date LUCIA - 7 assessed: 01/11/25 Feeling nervous, anxious, or on edge: 0 = Not at all Not being able to stop or control worryin = Not at all Worrying too much about different things: 0 = Not at all Trouble relaxin = Not at all Being so restless that it is hard to sit still: 0 = Not at all Becoming easily annoyed or irritable: 0 = Not at all Feeling afraid as if something awful might happen: 0 = Not at all Total LUCIA-7 score (0-4 normal; 5-9 mild; 10-14 moderate; 15-21 severe): 0 Source: Developed by Drs. Telly Schroeder, Ana Maria Jones, Camilo green nd colleagues, with an educational shawn from [employer]. LUCIA-7 Assessment Billing LUCIA-7 Assessment Tool: LUCIA-7 Assessment 25141 Physical exam (Primary Care) Vital Signs: Last Vital Signs Pulse 83 01/11/25 10:54 BP 130/72 01/11/25 10:54 Pulse Ox 99 01/11/25 10:54 Oxygen Delivery Method Room Air 01/11/25 10:54 BMI result Body Mass Index 21.8 Tobacco/Smoking Status: Tobacco use Status Tobacco use date assessed 01/11/25 01/11/25 10:59 Patient Tobacco Use Status Current everyday Tobacco 01/11/25 10:59 e-Cigarette/Vaping Use Never Used 01/11/25 10:59 PHQ-9: PHQ-9 Score PHQ-9: Total score 0 01/11/25 10:59 Depression Screening Interpretation: Negative Thrive Assessment: Date of Thrive Assessment Date Thrive assessed 01/11/25 01/11/25 10:59 Currently or been in a relationship where the following occur: I choose not to answer Coding Level of Care Code Est Pt Prev Care >65y(30338) Diagnoses Carotid bruit R09.89 Redness of eye, right H57.89 Encounter for routine adult physical exam with abnormal findings Z00.01 Additional Codes LUCIA-7 Assessment Billing - LUCIA-7 Assessment Tool: LUCIA-7 Assessment 35223 ([id number]) PHQ-9 - 46712 - PHQ-9 Billing: Yes ([id number]) Assessment & Plan Assessment & Plan (1) Carotid bruit: Code(s): R09.89 - Other specified symptoms and signs involving the circulatory and respiratory systems Category: Medical (2) Redness of eye, right: Code(s): H57.89 - Other specified disorders of eye and adnexa Category: Medical (3) Encounter for routine adult physical exam with abnormal findings: Code(s): Z00.01 - Encounter for general adult medical examination with abnormal findings Category: Medical Plan . Orders: Orders AMB Hemoglobin A1c Today Z13.9 - Encounter for screening, unspecified US carotid duplex BI Today R09.89 - Other specified symptoms and signs involving the circulatory and respiratory systems Referrals Ophthalmology Referral H57.89 - Other specified disorders of eye and adnexa Medications: Changed From nifedipine ER 60 mg (2 x 30 mg) PO BID 90 days 180 tabs 1RF To nifedipine ER 60 mg PO DAILY 90 tabs 1RF 90 days
--- OUTSIDE RECORDS SUMMARY | 2025-01-11 12:09 | XMS_ITS | Clinical Summary ---
Author Organization [facility] ity Address [address] [place] [address] Care Team Providers Care Jewel Bearing Broacher Name Role Phone Unavailable Primary Care Provider Unavailabl e Medical History Medical History Date Comments CAD (coronary artery disease) 11/16/2012 DX :CAD (coronary artery disease) HTN (hypertension) 11/16/2012 DX:HTN (hyper tension) Anxiety state 11/16/2012 DX:Anxiety state Family History Medical History Relation Name Comments Other: cirrhosis of liver Father Diabetes Maternal Grandmother Diabetes Mother Other: brain ca Mother Relation Name Status Comments Father Maternal Grandmother Mother Social History Tobacco Use Types Packs/Day Years Used Date Smoking Tobacco: Every Day Smokeless Tobacco: Never Alcohol Use Standard Drinks/Week Comments Not Asked 0 (1 standard drink = 0.6 oz pur e alcohol) Comments Unknown Sex and Gender Information Value Date Recorded Sex Assigned at Not on file Legal Sex Female 9:56 PM EST Gender Identity Not on file Sexual Orientation Not on file Obstetrics History Plan of Treatment Health Maintenance Due Date Last Done Comments DTaP,Tdap,and Td Vaccines (1 - Tdap) 1964 Pneumococcal Vaccine: 50+ Ye ars (1 of 1 - PCV) 1995 Zoster Vaccines (1 of 2) 1995 RSV Immunization Adult Patie nts (1 - 1-dose 75+ series) 2020 COVID-19 Vaccine ( - 2023-2 5 season) 2024 Influenza Vaccine (Season Ended) 2025 HIB Vaccines Aged Out No longer eligi ble based on patient's age to complete this topic HPV Vaccines Aged Out No longer eligi ble based on patient's age to complete this topic Hepatitis A Vaccines Aged Out No long er eligible based on patient's age to complete this topic Hepatitis B Vaccines Aged Out No long er eligible based on patient's age to complete this topic IPV Vaccines Aged Out No longer eligi ble based on patient's age to complete this topic MMR Vaccines Aged Out No longer eligi ble based on patient's age to complete this topic Meningococcal ACWY Vaccine Aged Out N o longer eligible based on patient's age to complete this topic Meningococcal B Vaccine Aged Out No l onger eligible based on patient's age to complete this topic RSV Immunization Patients Un bev 20 months Aged Out No longer eligible b ased on patient's age to complete this topic Varicella Vaccines Aged Out No longer eligible based on patient's age to complete this topic
== END 2025-01-11 11:50 | disposition home or self-care (01) ==
LOC: HO.HMCC 10:42
PROVIDERS: PCP Nurse Practitioner Family; Visit Provider Nurse Practitioner Family
DX: R09.89 Other specified symptoms and signs involving the circulatory and respiratory systems (principal); H57.89 Other specified disorders of eye and adnexa; Z00.01 Encounter for general adult medical examination with abnormal findings

== ENCOUNTER → 2025-01-11 10:41 | Outpatient (BNVA) | payer MEDICARE, SELFPAY | PROVIDERS: PCP Nurse Practitioner Family; Visit Provider Nurse Practitioner Family | DX: Z00.01 Encounter for general adult medical examination with abnormal findings (principal); R09.89 Other specified symptoms and signs involving the circulatory and respiratory systems; H57.89 Other specified disorders of eye and adnexa; F17.210 Nicotine dependence, cigarettes, uncomplicated; Z71.6 Tobacco abuse counseling | CPT/HCPCS: 96127; 99397 ==

== ENCOUNTER 2025-07-17 10:22 | Outpatient (AMB) | payer MEDICARE, SELFPAY ==
[2025-07-17 10:24] VITALS: BP 130/68; PULSE 94; RESP 16; O2SAT 97; BMI 23.2
--- NOTE | 2025-07-17 10:24 | A.OFFPC_ITS ---
Vital Signs 07/17/25 10:24 Height 5 ft 3 in Weight 131 lb BMI 23.2 BP 130/68 Blood Pressure Location Lt brachial Position Sitting Respiration 16 Pulse 94 Pulse Oximetry (%) 97 Oxygen Delivery Method Room Air Intake Visit Reasons: 6m f/u - see comments Typing Secretary Required: No Accompanied by: Self / Same As Patient Allergies No Known Allergies Allergy (Verified 07/17/25 11:08) Medication List - Last Reconciled 07/17/25 by COREY AvilaP- atorvastatin 80 mg PO DAILY carvedilol 6.25 mg PO BID 90 days lorazepam 1 mg PO DAILY PRN nifedipine ER 60 mg PO DAILY 90 days sennosides (Senna Laxative) 17.2 mg (2 x 8.6 mg) PO BEDTIME 90 days trazodone 25 mg (1/2 x 50 mg) PO BEDTIME PRN Tobacco use date assessed: 07/17/25 Fall risk assessment: No Falls in past year Last assessed Fall Risk: 07/17/25 Dental Screening Dental Screen Date: 01/11/25 HPI 6m f/u - see comments HPI Details Chief Complaint The patient is here for a follow-up for diabetes. History of Present Illness The patient is a 79 year old female presenting for a follow-up visit for diabetes management, accompanied by her daughter, who is her primary caregiver. She has a history of diabetes, which was previously fairly controlled with a last A1c of 6.5 and no required medication. However, her current A1c is 8.7, and she reports eating more sweets. The patient also has a history of chronic renal disease, with a last GFR reported as 28. She was previously under the care of a environmental services technician but was lost to follow-up, as she and her daughter report they were never contacted for a subsequent appointment. She reports some neuropathy, but notes no significant change in symptoms. The patient is adamant in her refusal of any needles or new medications at this time. She also declines all vaccinations, mammograms, and other screening imaging. Social History - Living Situation: The patient lives wi th her daughter, who is her primary caregiver. - Diet: She reports eating more sweets r ecently. Health Maintenance The patient declined all vaccinations, mammograms, and other screening imaging at this time. Review of Systems - General: Patient reports doing fine an d seems to be at her baseline. - Cardiovascular: Denies chest pain. - Respiratory: Denies shortness of breat h. - Neurological: Reports some neuropathy with no significant change. Physical Exam General: Cooperative, healthy appearing, comfortable, no acute distress and well developed, uses a walker Orientation: Patient oriented x3 Limitations: No limitations Head: Normal to inspection Ears: Hearing grossly normal bilaterally Nose: Normal external nose present Face and sinus: Normal facial exam Eyes: Appearance normal, both eyes and all related structures Neck: Normal visual inspection and Yes full ROM Respiratory: Normal respiratory effort and able to speak in complete sentences. Clear to auscultation bilaterally Cardiovascular: Regular rate and rhythm. Normal S1 and S2 GI: Normal to inspection. Soft to palpation and nontender Skin: No rashes or lesions noted Neuro: Patient oriented x3 Extremities: Extensively dry feet bilaterally, elongated toenails, positive sensation with use of monofilament, unable to feel vibratory sensation with use of a tuning fork 128 hertz. Results - Hemoglobin A1c: Last result was 6.5; c urrent result is 8.7. - GFR: Last result was 28. Plan 1. Uncontrolled Type 2 Diabetes Mellitus The patient's hemoglobin A1c has increased from a previous 6.5 to 8.7, which is attributed to an increased intake of sweets. Given her chronic renal disease and her adamant refusal to start any new medications or use needles, a trial of dietary modification will be implemented. A follow-up is scheduled in approximately 3 months to reassess her glycemic control. The patient was encouraged to use diabetic foot cream for her extensively dry feet. A new ophthalmology referral will be placed for a diabetic eye exam, as a previous one was not completed. 2. Chronic Kidney Disease The patient has a history of chronic kidney disease with a last GFR of 28. Although she was lost to nephrology follow-up, she is now willing to re-engage with a specialist, currently. Fasting labs, including current GFR and kidney function, will be obtained before a new referral is considered. Discussion Notes I discussed with the patient and her daughter the significant increase in her A1c to 8.7, likely related to increased consumption of sweets. I explained my reluctance to start certain medications due to her chronic renal disease with a GFR of 28. The patient was adamant in her refusal of any new medications or needles at this time. We agreed to a plan of focusing on diet for the next 3 months, at which point we will re-evaluate. She has agreed to consider a nephrology follow-up, and we will obtain fasting labs to assess her current kidney function beforehand. I will replace the ophthalmology referral that was never completed. The patient also declined all vaccinations and other recommended health screenings. Patient Instructions - Please work on improving your diet, es pecially by eating fewer sweets, over the next 3 months. - Go to the laboratory for fasting blood tests to check on your kidney function and blood sugar. - Our office will send a new referral fo r an eye exam; please schedule and attend this appointment. - Use lotion or a diabetic foot cream on your feet every day to help with the dryness. - We will check in with you again in abo ut 3 months to see how you are doing. [facility] Medical History Encounter for competency evaluation Elevated liver enzymes CKD (chronic kidney disease) stage 3, GFR 30-59 ml/min Complete heart block CVA (cerebral vascular accident) Anxiety Colonoscopy refused Mammogram declined Noncompliance CAD (coronary artery disease) Bradycardia, sinus Fall HTN (hypertension) Diabetic neuropathy, type II diabetes mellitus Hypertension Surgical History Aortocoronary bypass status Social History Household Members: Spouse Household Members Other:: 2 Housing: Apartment Do you presently have visiting nurse or other home services: No Alcohol intake: never Comment: refuses alarm Patient Tobacco Use Status: Current everyday Tobacco user Cigarettes Per Day: 4 Years Smoked: 60 e-Cigarette/Vaping Use: Never Used Second Hand Smoke Exposure: No Advance Directives Date on File: 08/27/20 service: No Current occupational status: retired Cognitive needs: No Hearing needs: No Vision needs: No Questionnaire Thrive Questionnaire Date Thrive assessed: 01/04/25 What is your living situation today?: I have a steady place to live Within the past 12 months, did the food you bought not last and you didn't have the money to get more?: I choose not to answer this question Within the past 12 months, did you worry whether your food would run out before you got money to buy more?: I choose not to answer this question Do you have trouble paying for medicines?: No Do you have trouble getting transportation to medical appointments?: No Do you have trouble paying your heating and electricity bill?: No Do you have trouble taking care of your child, family member or friend?: No Do you have trouble with day-to-day activities such as bathing, preparing meals, shopping, managing finances, etc.?: Yes Are you currently unemployed and looking for a job?: No Are you interested in more education?: No Currently or been in a relationship where the following occur: I choose not to answer THRIVE Score: 0 LUCIA-7 AMB Questionnaire LUCIA-7 Date LUCIA - 7 assessed: 01/11/25 Source: Developed by Drs. Telly Schroeder, Ana Maria Jones, Camilo Matthews and colleagues, with an educational shawn from [employer]. Physical exam (Primary Care) Vital Signs: Last Vital Signs Pulse 94 07/17/25 10:24 Resp 16 07/17/25 10:24 BP 130/68 07/17/25 10:24 Pulse Ox 97 07/17/25 10:24 Oxygen Delivery Method Room Air 07/17/25 10:24 BMI result Body Mass Index 23.2 Tobacco/Smoking Status: Tobacco use Status Tobacco use date assessed 07/17/25 07/17/25 10:37 Patient Tobacco Use Status Current everyday Tobacco 07/17/25 10:29 e-Cigarette/Vaping Use Never Used 07/17/25 10:29 Thrive Assessment: Date of Thrive Assessment Date Thrive assessed 01/04/25 07/17/25 10:29 Currently or been in a relationship where the following occur: I choose not to answer Office Procedures Diabetic Foot Exam Details: unable to feel 128 hertz tuning fork, + sensation with use of monofilament. G9226 - Diabetic Foot Exam Results AMB Hemoglobin A1c AMB Hemoglobin A1c 8.7 % Last Edit by Lulú Arias MA on 07/17/25 10:45 Results Reviewed Results Reviewed: Laboratory Last Values Hgb A1c (Clinic) 8.7 % (4.0-6.0) H 07/17/25 10:37 Coding Level of Care Code Est Pt Level 3 (01971) Diagnoses Diabetic neuropathy, type II diabetes mellitus E11.40 Vitamin D deficiency E55.9 CPT Codes Diabetic Foot Exam - CPT: G9226 - Diabetic Foot Exam ([id number]) Assessment & Plan Assessment & Plan (1) Diabetic neuropathy, type II diabetes mellitus: Code(s): E11.40 - Type 2 diabetes mellitus with diabetic neuropathy, unspecified Category: Medical (2) Vitamin D deficiency: Code(s): E55.9 - Vitamin D deficiency, unspecified Category: Medical Plan . Orders: Orders TSH reflex Free T4 Today E11.40 - Type 2 diabetes mellitus with diabetic neuropathy, unspecified Lipid Panel Today E11.40 - Type 2 diabetes mellitus with diabetic neuropathy, unspecified AMB Hemoglobin A1c Today E11.40 - Type 2 diabetes mellitus with diabetic neuropathy, unspecified Complete Blood Count Auto Diff Today E11.40 - Type 2 diabetes mellitus with diabetic neuropathy, unspecified Comprehensive Enterprise. Panel Fast Today E11.40 - Type 2 diabetes mellitus with diabetic neuropathy, unspecified UA CC w/rflx Micro + Cult Today E11.40 - Type 2 diabetes mellitus with diabetic neuropathy, unspecified Microalbumin, Random (w Creat) Today E11.40 - Type 2 diabetes mellitus with diabetic neuropathy, unspecified Vitamin D 25-OH Total Today E55.9 - Vitamin D deficiency, unspecified Referrals Ophthalmology Referral E11.40 - Type 2 diabetes mellitus with diabetic neuropathy, unspecified
--- OUTSIDE RECORDS SUMMARY | 2025-07-17 11:36 | XMS_ITS | Clinical Summary ---
Author Organization [facility] ity Address [address] [place] [address] Care Team Providers Care Rooter Operator Name Role Phone Unavailable Primary Care Provider [...] on file Sexual Orientation Not on file Plan of Treatment Health Maintenance Due Date Last Done Comments DTaP,Tdap,and Td Vaccines (1 - Tdap) 1964 Pneumococcal Vaccine: 50+ Ye ars (1 of 1 - PCV) 1995 Zoster Vaccines (1 of 2) 1995 RSV Immunization Adult Patie nts (1 - 1-dose 75+ series) 2020 Depression Screening 07/26/2024 COVID-19 Vaccine ( - 2024-2 6 season) 2025 Influenza Vaccine (#1) 2025 HIB Vaccines Aged Out No longer [...]
== END 2025-07-17 11:02 | disposition home or self-care (01) ==
LOC: HO.HMCC 10:23
PROVIDERS: PCP Nurse Practitioner Family; Visit Provider Nurse Practitioner Family
DX: E11.40 Type 2 diabetes mellitus with diabetic neuropathy, unspecified (principal); E55.9 Vitamin D deficiency, unspecified

== ENCOUNTER → 2025-07-17 10:22 | Outpatient (BNVA) | payer MEDICARE, SELFPAY | PROVIDERS: PCP Nurse Practitioner Family; Visit Provider Nurse Practitioner Family | DX: E11.40 Type 2 diabetes mellitus with diabetic neuropathy, unspecified (principal); E11.22 Type 2 diabetes mellitus with diabetic chronic kidney disease; N18.9 Chronic kidney disease, unspecified; E55.9 Vitamin D deficiency, unspecified | CPT/HCPCS: 83036; 99212 ==